=== PATIENT | female | born 1975 | race Caucasian/White ===

== ENCOUNTER 2017-04-02 22:32 | Emergency (ER) | payer OTHER ==
[~2017-04-02] VITALS: Ht 172.7 cm; Wt 113.4 kg
[~2017-04-02 22:32] MED LIST: CRESTOR40 MG PO; FURO-68 PO; LANS30CA17 PO; LISINOPRIL; POTA20TA12 PO; SUCR1TAB29 PO
--- NOTE | 2017-04-02 22:52 | PHYS DOC ---
Past Medical History Past Medical History: CHF, DVT, High Cholesterol, Hypertension, [place], Other Additional Past Medical Histor: PULMONARY EMBOLISM , LUPUS Past Surgical History: Cholecystectomy, , Hysterectomy, Other Additional Past Surgical Histo: IVC FILTER PLACED Alcohol Use: Rarely Drug Use: None Adult General Chief Complaint Chief Complaint: HEMATEMESIS/VOMITING BLOOD HPI HPI Patient is a 41 year old female who presents with vomiting up blood. She states 3 days ago she developed nausea and vomiting. Initially the vomit was normal. Then started becoming bloody. She states her stool is "thick and tarry" . No fever or chills. Sheet sharp stabbing midabdominal pain that started at the same 3 days ago. No fevers. She was just seen by her physician last for just "recheck" and was normal then. She was on chronic anticoagulation for prior DVT. Review of Systems Review of Systems Constitutional: Denies fever or chills Eyes: Denies change in visual acuity, redness, or eye pain HENT: Denies nasal congestion or sore throat Respiratory: Denies cough or shortness of breath Cardiovascular: No chest pain GI: see HPI : Denies dysuria or hematuria Musculoskeletal: Denies back pain or joint pain Integument: Denies rash or skin lesions Neurologic: Denies headache, focal weakness or sensory changes Current Medications Current Medications Current Medications Medications (Trade) Dose Ordered Sig/Tex Start Time Stop Time Status Last Admin Dose Admin Morphine Sulfate 2 mg 1X ONCE 04/03/17 01:30 04/03/17 01:31 DC 04/03/17 01:30 2 MG Ondansetron HCl (Zofran) 4 mg 1X ONCE 04/02/17 23:45 04/02/17 23:46 DC 04/02/17 23:45 4 MG Allergies Allergies Allergies Coded Allergies Type Severity Reaction Last Updated Verified Cephalexin Monohydrate Allergy Intermediate 04/02/17 Yes NSAIDS (Non-Steroidal Anti-Inflamma Allergy Intermediate 04/02/17 Yes Penicillins Allergy Intermediate 04/02/17 Yes iodine Allergy Intermediate 04/02/17 Yes lidocaine Allergy Intermediate 04/02/17 Yes prochlorperazine edisylate Allergy Intermediate 04/02/17 Yes prochlorperazine maleate Allergy Intermediate 04/02/17 Yes sulfamethoxazole Allergy Intermediate 04/02/17 Yes trimethoprim Allergy Intermediate 04/02/17 Yes Physical Exam Physical Exam Constitutional: Well developed, well nourished, no acute distress, non-toxic appearance. HENT: Normocephalic, atraumatic, bilateral external ears normal, oropharynx moist, no oral exudates, nose normal. Eyes: PERRLA, EOMI, conjunctiva normal, no discharge. Neck: Normal range of motion, no tenderness, supple, no stridor. Cardiovascular:Heart rate regular rhythm, no murmur Lungs & Thorax: Bilateral breath sounds clear to auscultation Abdomen: Bowel sounds normal, soft, minimal tenderness in epigastric area; no rebound or guarding, no masses, no pulsatile masses. Skin: Warm, dry, no erythema, no rash. Back: No tenderness, no CVA tenderness. Extremities: No tenderness, no cyanosis, no clubbing, ROM intact, no edema. Neurologic: Alert and oriented X 3, normal motor function, normal sensory function, no focal deficits noted. Psychologic: Affect normal, judgement normal, mood normal. Current Patient Data Vital Signs Vital Signs Date Time Temp Pulse Resp B/P (MAP) Pulse Ox O2 Delivery O2 Flow Rate FiO2 04/03/17 01:30 99 Room Air 04/03/17 00:12 87 19 114/68 (83) 04/02/17 23:03 97.6 97.6 Lab Values Laboratory Tests Test 04/02/17 23:15 04/02/17 23:45 04/02/17 23:59 Urine Collection Type Unknown Urine Color Yellow Urine Clarity Clear Urine pH 5.5 Urine Specific [place] >=1.030 Urine Protein Negative mg/dL (NEG-TRACE) Urine Glucose (UA) Negative mg/dL (NEG) Urine Ketones (Stick) Negative mg/dL (NEG) Urine Blood Negative (NEG) Urine Nitrite Negative (NEG) Urine Bilirubin Negative (NEG) Urine Urobilinogen Dipstick 0.2 mg/dL (0.2 mg/dL) Urine Leukocyte Esterase Negative (NEG) Urine RBC Occ /HPF (0-2) Urine WBC 5-10 /HPF (0-4) Urine Squamous Epithelial Cells Mod /LPF Urine Bacteria Many /HPF (0-FEW) Urine Hyaline Casts Few /HPF Urine Mucus Marked /LPF Stool Occult Blood Negative (NEG) White Blood Count 11.1 x10^3/uL (4.0-11.0) H Red Blood Count 3.91 x10^6/uL (3.50-5.40) Hemoglobin 12.1 g/dL (12.0-15.5) Hematocrit 36.3 % (36.0-47.0) Mean Corpuscular Volume 93 fL (79-100) Mean Corpuscular Hemoglobin 31 pg (25-35) Mean Corpuscular Hemoglobin Concent 33 g/dL (31-37) Red Cell Distribution Width 13.5 % (11.5-14.5) Platelet Count 421 x10^3/uL (140-400) H Neutrophils (%) (Auto) 53 % (31-73) Lymphocytes (%) (Auto) 31 % (24-48) Monocytes (%) (Auto) 9 % (0-9) Eosinophils (%) (Auto) 6 % (0-3) H Basophils (%) (Auto) 1 % (0-3) Neutrophils # (Auto) 5.9 x10^3uL (1.8-7.7) Lymphocytes # (Auto) 3.4 x10^3/uL (1.0-4.8) Monocytes # (Auto) 1.0 x10^3/uL (0.0-1.1) Eosinophils # (Auto) 0.7 x10^3/uL (0.0-0.7) Basophils # (Auto) 0.2 x10^3/uL (0.0-0.2) Prothrombin Time 12.9 SEC (11.7-14.0) Prothrombin Time INR 1.0 (0.8-1.1) PTT 28 SEC (24-38) Sodium Level 140 mmol/L (136-145) Potassium Level 4.4 mmol/L (3.5-5.1) Chloride Level 104 mmol/L (98-107) Carbon Dioxide Level 25 mmol/L (21-32) Anion Gap 11 (6-14) Blood Urea Nitrogen 20 mg/dL (7-20) Creatinine 0.7 mg/dL (0.6-1.0) Estimated GFR (Cockcroft-Gault) 92.2 BUN/Creatinine Ratio 29 (6-20) H Glucose Level 89 mg/dL (70-99) Calcium Level 9.3 mg/dL (8.5-10.1) Total Bilirubin 0.2 mg/dL (0.2-1.0) Aspartate Amino Transferase (AST) 10 U/L (15-37) L Alanine Aminotransferase (ALT) 19 U/L (14-59) Alkaline Phosphatase 73 U/L (46-116) Total Protein 8.3 g/dL (6.4-8.2) H Albumin 4.1 g/dL (3.4-5.0) Albumin/Globulin Ratio 1.0 (1.0-1.7) Laboratory Tests 04/02/17 23:59 Laboratory Tests 04/02/17 23:59 Radiology/Procedures Radiology/Procedures [facility] [address] [place] [address] IMAGING REPORT Signed PATIENT: TRACIE GAONA ACCOUNT: [id number] : 1975 LOCATION: ER AGE: 41 SEX: F EXAM STATUS: REG ER ORD. PHYSICIAN: ROE LALA MD REASON: ABD PAIN W VOMITING BLOOD; ALLERGY TO IODINE PROCEDURE: CT ABDOMEN PELVIS WO CONTRAST Exam performed: CT scan of the abdomen and pelvis without contrast. Clinical Indication: Lower abdominal pain and hematemesis with 3 days Date of Service: 04/02/2017 . Comparison: None available Technique: Contiguous helical acquisitions are obtained through the abdomen and pelvis without oral or IV contrast due to IV contrast allergy. Sagittal and coronal reformatted images are obtained and reviewed. CT abdomen findings: The lung bases demonstrate bibasilar atelectasis. The visualized heart is normal. Lack of IV contrast limits evaluation of abdominal viscera, however the liver, spleen, pancreas appear normal. Cholecystectomy. Both adrenal glands and bilateral kidneys are normal in size. There is no nephrolithiasis or hydronephrosis. No perinephric stranding is seen. Aorta is normal in caliber. IVC filter. No retroperitoneal or mesenteric lymphadenopathy. Small and large bowel loops are nondilated and unremarkable. Appendix is not clearly visualized. CT pelvis findings: The pelvic bowel loops are nondilated and unremarkable. The urinary bladder is decompressed. The uterus is clinically absent. No adnexal masses. No fluid collections or pelvic lymphadenopathy. Bones are unremarkable. Impression: No acute intra-abdominal or pelvic process noted. Status post cholecystectomy and hysterectomy. PQRS Compliance Statement: One or more of the following individualized dose reduction techniques were utilized for this examination: 1. Automated exposure control 2. Adjustment of the mA and/or kV according to patient size 3. Use of iterative reconstruction technique Electronically signed by: Nita Dacosta MD (04/02/2017 11:54 PM) DICTATED and SIGNED BY: NITA DACOSTA MD DATE: 04/02/17 0502 CC: ROE LALA MD; HU BAUTISTA MD ~ Course & Med Decision Making Course & Med Decision Making Pertinent Labs and Imaging studies reviewed. (See chart for details) evaluated patient upon arrival. She is on an anticoagulant with c/o vomiting blood. Will check lab. She has had prior abdominal surgeries and has pain with vomiting; will check CT (no iodine-she is allergic) to r/o SBO. 0030 Am: H/H stable; 03/04/16 she was 13.1/37.6. Hemoccult negative. 0100 AM: lab all returned and unremarkable. re-examined; mild pain on palpation but no rebound or guarding. BP 117/55, P 85. Will d/c home and she was instructed to call her PCP later today. Dragon Disclaimer Dragon Disclaimer This electronic medical record was generated, in whole or in part, using a voice recognition dictation system. Departure Departure Impression: Primary Impression: Abdominal pain Additional Impressions: Current use of anticoagulant therapy Vomiting Disposition: HOME, SELF-CARE Admitting Physician: Asif Sellers Condition: STABLE Referrals: HU BAUTISTA MD (PCP) Scripts Famotidine (PEPCID) 40 Mg Tablet 40 MG PO HS for 28 Days, #28 TAB Prov: ROE LALA MD 04/03/17 Ondansetron (ZOFRAN ODT) 4 Mg Tab.rapdis 1 TAB SL Q8HRS, #15 TAB Prov: ROE LALA MD 04/03/17 Problem Qualifiers ROE LALA MD April 02, 2017 22:52
[2017-04-02 23:45] LABS: BILIRUBIN,URINE NEGATIVE (NEG); GLUCOSE,URINE NEGATIVE (NEG); NITRITE,URINE NEGATIVE (NEG); PH,URINE 5.5; PROTEIN,URINE NEGATIVE (NEG-TRACE); UROBILINOGEN,URINE 0.2 mg/dL (0.2 mg/dL)
[2017-04-02] MEDS ORDERED: MORPHINE SULFATE 2 MG/ML DISP.SYRIN. IM ONE (23:45)
[2017-04-02] MEDS ORDERED: ONDANSETRON PF 4 MG/2 ML VIAL. IV ONE (23:45)
--- NOTE | 2017-04-02 23:58 | RAD ---
Exam performed: CT scan of the abdomen and pelvis without contrast. Clinical Indication: Lower abdominal pain and hematemesis with 3 days Date of Service: 04/02/2017 . Comparison: None available Technique: Contiguous helical acquisitions are obtained through the abdomen and pelvis without oral or IV contrast due to IV contrast allergy. Sagittal and coronal reformatted images are obtained and reviewed. CT abdomen findings: The lung bases demonstrate bibasilar atelectasis. The visualized heart is normal. Lack of IV contrast limits evaluation of abdominal viscera, however the liver, spleen, pancreas appear normal. Cholecystectomy. Both adrenal glands and bilateral kidneys are normal in size. There is no nephrolithiasis or hydronephrosis. No perinephric stranding is seen. Aorta is normal in caliber. IVC filter. No retroperitoneal or mesenteric lymphadenopathy. Small and large bowel loops are nondilated and unremarkable. Appendix is not clearly visualized. CT pelvis findings: The pelvic bowel loops are nondilated and unremarkable. The urinary bladder is decompressed. The uterus is clinically absent. No adnexal masses. No fluid collections or pelvic lymphadenopathy. Bones are unremarkable. Impression: No acute intra-abdominal or pelvic process noted. Status post cholecystectomy and hysterectomy. PQRS Compliance Statement: One or more of the following individualized dose reduction techniques were utilized for this examination: 1. Automated exposure control 2. Adjustment of the mA and/or kV according to patient size 3. Use of iterative reconstruction technique Electronically signed by: Nita Dacosta MD (04/02/2017 11:54 PM)
[2017-04-03] LABS: BACTERIA,URINE MANY /HPF (0-FEW); RBC,URINE OCC /HPF (0-2); SQUAMOUS EPITHELIAL CELL,UR MOD /LPF
[2017-04-03 00:12] VITALS: BP 114/68
[2017-04-03 00:15] LABS: BASO # 0.2 x10^3/uL (0.0-0.2); BASO % 1 % (0-3); EOS % 6 % (0-3); HEMATOCRIT 36.3 % (36.0-47.0); HEMOGLOBIN 12.1 g/dL (12.0-15.5); LYMPH # 3.4 x10^3/uL (1.0-4.8); LYMPH % 31 % (24-48); MEAN CORPUSCULAR HEMOGLOBIN 31 pg (25-35); MEAN CORPUSCULAR HGB CONC 33 g/dL (31-37); MEAN CORPUSCULAR VOLUME 93 fL (79-100); MONO % 9 % (0-9); NEUT % 53 % (31-73); PLATELET COUNT 421 x10^3/uL (140-400); RED BLOOD COUNT 3.91 x10^6/uL (3.50-5.40); RED CELL DISTRIBUTION WIDTH 13.5 % (11.5-14.5); WHITE BLOOD COUNT 11.1 x10^3/uL (4.0-11.0)
[2017-04-03 00:20] LABS: NEG OBC FOB NEG; POS OBC FOB POS
[2017-04-03 00:24] LABS: PROTHROMBIN TIME PATIENT 12.9 SEC (11.7-14.0)
[2017-04-03] MEDS ORDERED: MORPHINE SULFATE 2 MG/ML DISP.SYRIN. IV ONE ×2 (00:30→01:30)
[2017-04-03 00:32] LABS: CALCIUM 9.3 mg/dL (8.5-10.1); CREATININE 0.7 mg/dL (0.6-1.0); GFR 92.2; POTASSIUM 4.4 mmol/L (3.5-5.1)
[2017-04-03 00:37] LABS: ALBUMIN 4.1 g/dL (3.4-5.0); TOTAL BILIRUBIN 0.2 mg/dL (0.2-1.0); TOTAL PROTEIN 8.3 g/dL (6.4-8.2)
[2017-04-03] MEDS ORDERED: ONDA4TAB10 SL (01:16)
[2017-04-03] MEDS ORDERED: FAMO40TA57 PO (01:16)
== END 2017-04-03 01:35 | disposition home or self-care (01) ==
LOC: ER 22:32
DX: R10.13 Epigastric pain (principal); R11.2 Nausea with vomiting, unspecified; E78.00 Pure hypercholesterolemia, unspecified; I25.2 Old myocardial infarction; I11.0 Hypertensive heart disease with heart failure; I50.9 Heart failure, unspecified; Z90.49 Acquired absence of other specified parts of digestive tract; Z90.710 Acquired absence of both cervix and uterus; Z86.718 Personal history of other venous thrombosis and embolism; Z86.711 Personal history of pulmonary embolism; Z79.01 Long term (current) use of anticoagulants; Z88.0 Allergy status to penicillin; Z88.8 Allergy status to other drugs, medicaments and biological substances; Z88.6 Allergy status to analgesic agent; Z88.4 Allergy status to anesthetic agent; Z88.1 Allergy status to other antibiotic agents; Z91.041 Radiographic dye allergy status
CPT/HCPCS: 36415; 74176; 80053; 81001; 82274; 85027; 85610; 85730; 96374; 96375; 96376; 99285; J2270; J2405

== ENCOUNTER 2017-04-04 14:43 | Emergency (ER) | payer OTHER ==
[~2017-04-04] VITALS: Ht 172.7 cm; Wt 127.0 kg
[~2017-04-04 14:43] MED LIST changes: +FAMO40TA57 PO; +ONDA4TAB10 SL
[2017-04-04 15:40] LABS: BASO # 0.1 x10^3/uL (0.0-0.2); BASO % 1 % (0-3); EOS % 6 % (0-3); HEMATOCRIT 34.6 % (36.0-47.0); HEMOGLOBIN 11.8 g/dL (12.0-15.5); LYMPH # 2.3 x10^3/uL (1.0-4.8); LYMPH % 24 % (24-48); MEAN CORPUSCULAR HEMOGLOBIN 31 pg (25-35); MEAN CORPUSCULAR HGB CONC 34 g/dL (31-37); MEAN CORPUSCULAR VOLUME 91 fL (79-100); MONO % 7 % (0-9); NEUT % 62 % (31-73); PLATELET COUNT 384 x10^3/uL (140-400); RED BLOOD COUNT 3.79 x10^6/uL (3.50-5.40); RED CELL DISTRIBUTION WIDTH 13.5 % (11.5-14.5); WHITE BLOOD COUNT 9.5 x10^3/uL (4.0-11.0)
[2017-04-04] MEDS ORDERED: ONDANSETRON PF 4 MG/2 ML VIAL. IV ONE (15:45)
--- NOTE | 2017-04-04 15:50 | ED.ADGEN ---
Past Medical History Past Medical History: CHF, COPD, DVT, High Cholesterol, Hypertension, ID, Other Additional Past Medical Histor: PULMONARY EMBOLISM , LUPUS Past Surgical History: Cholecystectomy, , Hysterectomy, Other Additional Past Surgical Histo: IVC FILTER PLACED and removed Alcohol Use: Rarely Drug Use: None Adult General Chief Complaint Chief Complaint: CHEST PAIN HPI HPI Patient is a 41 year old woman, history of lupus, CAD status post ID, CHF, hypertension, DVT and PE, who presents emergency Department with complaint of pain and swelling in her right lower extremity over the past several days, with development of left-sided chest pain and shortness of breath that began approximately an hour prior to evaluation in the emergency department. Patient states that she was seated with her children when the pain began, denies any injuries, any fevers, no chills, any productive cough, any weakness, numbness, tingling, rashes, travel, surgery or other inciting events. She states that her symptoms are the same as they were with her previous PE several years ago. Patient states that she does take Edoxaban for anticoagulation, states that she missed several days last week when she "just got busy and forgot to take the medication". She states she has been compliant this week. Review of Systems Review of Systems Constitutional: Denies fever or chills. [] Eyes: Denies change in visual acuity. [] HENT: Denies nasal congestion or sore throat. [] Respiratory: Denies cough, shortness of breath with chest pain beginning an hour and a half ago. Cardiovascular: Chest pain, edema. GI: Denies abdominal pain, nausea, vomiting, bloody stools or diarrhea. [] : Denies dysuria. [] Musculoskeletal: Denies back pain or joint pain. [] Integument: Denies rash. [] Neurologic: Denies headache, focal weakness or sensory changes. [] Endocrine: Denies polyuria or polydipsia. [] Lymphatic: Denies swollen glands. [] Psychiatric: Denies depression or anxiety. [] Current Medications Current Medications Current Medications Medications (Trade) Dose Ordered Sig/Tex Start Time Stop Time Status Last Admin Dose Admin Fentanyl Citrate (Fentanyl 2ml Vial) 50 mcg PRN Q15MIN PRN 04/04/17 15:45 04/05/17 15:44 04/04/17 18:31 50 MCG Ondansetron HCl (Zofran) 4 mg 1X ONCE 04/04/17 15:45 04/04/17 15:46 DC 04/04/17 15:52 4 MG Allergies Allergies Allergies Coded Allergies Type Severity Reaction Last Updated Verified Cephalexin Monohydrate Allergy Intermediate 04/04/17 Yes NSAIDS (Non-Steroidal Anti-Inflamma Allergy Intermediate 04/04/17 Yes Penicillins Allergy Intermediate 04/04/17 Yes iodine Allergy Intermediate 04/04/17 Yes lidocaine Allergy Intermediate 04/04/17 Yes prochlorperazine edisylate Allergy Intermediate 04/04/17 Yes prochlorperazine maleate Allergy Intermediate 04/04/17 Yes sulfamethoxazole Allergy Intermediate 04/04/17 Yes trimethoprim Allergy Intermediate 04/04/17 Yes Physical Exam Physical Exam Constitutional: Well developed, well nourished, appears anxious, non-toxic appearance. [] HENT: Normocephalic, atraumatic, bilateral external ears normal, oropharynx moist, no oral exudates, nose normal. [] Eyes: PERRLA, EOMI, conjunctiva normal, no discharge. [] Neck: Normal range of motion, no tenderness, supple, no stridor. [] Cardiovascular:Heart rate regular rhythm, no murmur, S1, S2, tachycardic, no rubs or gallops. [] Lungs & Thorax: Bilateral breath sounds clear to auscultation, no wheezing, rhonchi, rales. No chest wall crepitus, no tenderness or rashes, unable to reproduce symptoms with palpation. [] Abdomen: Bowel sounds normal, soft, no tenderness, no masses, no pulsatile masses. [] Skin: Warm, dry, no erythema, no rash. [] Back: No tenderness, no CVA tenderness. [] Extremities: No tenderness, no cyanosis, no clubbing, ROM intact, no edema. Patient with tenderness palpation in the right calf, no pitting edema. Neurologic: Alert and oriented X 3, normal motor function, normal sensory function, no focal deficits noted. [] Psychologic: Affect normal, judgement normal, mood normal. [] Current Patient Data Vital Signs Vital Signs Date Time Temp Pulse Resp B/P (MAP) Pulse Ox O2 Delivery O2 Flow Rate FiO2 04/04/17 18:31 24 94 Nasal Cannula 2.0 04/04/17 18:30 84 119/85 (96) 04/04/17 14:52 98.1 98.1 Lab Values Laboratory Tests Test 04/04/17 14:53 04/04/17 15:20 Urine Collection Type Unknown Urine Color Yellow Urine Clarity Clear Urine pH 5.5 Urine Specific [place] 1.025 Urine Protein Negative mg/dL (NEG-TRACE) Urine Glucose (UA) Negative mg/dL (NEG) Urine Ketones (Stick) Negative mg/dL (NEG) Urine Blood Negative (NEG) Urine Nitrite Negative (NEG) Urine Bilirubin Negative (NEG) Urine Urobilinogen Dipstick 0.2 mg/dL (0.2 mg/dL) Urine Leukocyte Esterase Trace (NEG) Urine RBC 0 /HPF (0-2) Urine WBC 1-4 /HPF (0-4) Urine Squamous Epithelial Cells Few /LPF Urine Bacteria Few /HPF (0-FEW) Urine Mucus Mod /LPF Urine Opiates Screen Pos (NEG) Urine Methadone Screen Neg (NEG) Urine Barbiturates Neg (NEG) Urine Phencyclidine Screen Neg (NEG) Urine Amphetamine/Methamphetamine Neg (NEG) Urine Benzodiazepines Screen Pos (NEG) Urine Cocaine Screen Neg (NEG) Urine Cannabinoids Screen Neg (NEG) Urine Ethyl Alcohol Neg (NEG) White Blood Count 9.5 x10^3/uL (4.0-11.0) Red Blood Count 3.79 x10^6/uL (3.50-5.40) Hemoglobin 11.8 g/dL (12.0-15.5) L Hematocrit 34.6 % (36.0-47.0) L Mean Corpuscular Volume 91 fL (79-100) Mean Corpuscular Hemoglobin 31 pg (25-35) Mean Corpuscular Hemoglobin Concent 34 g/dL (31-37) Red Cell Distribution Width 13.5 % (11.5-14.5) Platelet Count 384 x10^3/uL (140-400) Neutrophils (%) (Auto) 62 % (31-73) Lymphocytes (%) (Auto) 24 % (24-48) Monocytes (%) (Auto) 7 % (0-9) Eosinophils (%) (Auto) 6 % (0-3) H Basophils (%) (Auto) 1 % (0-3) Neutrophils # (Auto) 5.9 x10^3uL (1.8-7.7) Lymphocytes # (Auto) 2.3 x10^3/uL (1.0-4.8) Monocytes # (Auto) 0.7 x10^3/uL (0.0-1.1) Eosinophils # (Auto) 0.6 x10^3/uL (0.0-0.7) Basophils # (Auto) 0.1 x10^3/uL (0.0-0.2) Prothrombin Time 13.0 SEC (11.7-14.0) Prothrombin Time INR 1.0 (0.8-1.1) Sodium Level 142 mmol/L (136-145) Potassium Level 3.9 mmol/L (3.5-5.1) Chloride Level 106 mmol/L (98-107) Carbon Dioxide Level 25 mmol/L (21-32) Anion Gap 11 (6-14) Blood Urea Nitrogen 14 mg/dL (7-20) Creatinine 0.7 mg/dL (0.6-1.0) Estimated GFR (Cockcroft-Gault) 92.2 Glucose Level 122 mg/dL (70-99) H Calcium Level 9.0 mg/dL (8.5-10.1) Total Bilirubin 0.3 mg/dL (0.2-1.0) Direct Bilirubin 0.1 mg/dL (0.0-0.2) Aspartate Amino Transferase (AST) 9 U/L (15-37) L Alanine Aminotransferase (ALT) 17 U/L (14-59) Alkaline Phosphatase 61 U/L (46-116) Troponin I Quantitative < 0.017 ng/mL (0.000-0.055) YD-Fmb-L-Type Natriuretic Peptide 69 pg/mL (0-124) Total Protein 6.8 g/dL (6.4-8.2) Albumin 3.6 g/dL (3.4-5.0) Lipase 85 U/L (73-393) Laboratory Tests 04/04/17 15:20 Laboratory Tests 04/04/17 15:20 EKG EKG EC: Sinus tachycardia, heart rate 101 beats minute, left axis deviation, with incomplete right bundle-branch block noted, contour normality is noted in the inferior leads and anterior leads, abnormal ECG, QTC of 423, [place] 140, QRS 92 , no ST depressions, abnormal ECG, does not meet STEMI criteria. As interpreted by me. [] Interpretation Time: [address] [id number] IMAGING REPORT Signed PATIENT: TRACIE GAONA ACCOUNT: [id number] : 1975 LOCATION: ER AGE: 41 SEX: F EXAM STATUS: REG ER ORD. PHYSICIAN: LUCHO VERDIN DO REASON: Swelling/pain/hx DVT/missed anticoagulation PROCEDURE: VENOUS LOWER EXT BILATERAL Bilateral lower extremity venous ultrasound, 04/04/2017: History: Bilateral leg swelling Duplex evaluation of the deep veins in the lower extremities was performed including grayscale, color-flow and spectral Doppler analysis. The femoral and popliteal veins demonstrate normal compressibility and normal responses to distal augmentation maneuvers. Color imaging of those vessels shows no evidence of intraluminal clot. The visualized deep veins in both calves are patent. IMPRESSION: There is no sonographic evidence of deep vein thrombosis in either lower extremity. DICTATED and SIGNED BY: FLY MANRIQUEZ MD DATE: 04/04/17 164 CC: LUCHO VERDIN DO; HU BAUTISTA MD ~ Radiology/Procedures Radiology/Procedures [] Impressions: [address] [id number] IMAGING REPORT Signed PATIENT: TRACIE GAONA ACCOUNT: [id number] : 1975 LOCATION: ER AGE: 41 SEX: F EXAM STATUS: REG ER ORD. PHYSICIAN: LUCHO VERDIN DO REASON: SOB/CP/Hx PE w/ missed anticoagulation-NEREIDA NOTIFIED PROCEDURE: LUNG VENT/PERFUSION SCAN(VQ) Ventilation perfusion exam History:short of breath, chest pain, nausea for 1 day. History of PE 1 year ago, DVT 6 months. patient didn't take 2 doses of anticoagulants Comparison: There is no previous similar exam or chest radiograph at this time available for comparison. Findings: Ventilation perfusion examination was performed. Ventilation images were acquired after the patient inhaled 16.1 mCi of xenon-133 gas. Perfusion images were acquired after the patient was injected with 5.5 mCi of technetium 99m MAA. No mismatched perfusion defect is identified. Impression: 1. There is low probability for pulmonary embolic disease. Electronically signed by: Hemanth Fernandez MD (04/04/2017 6:38 PM) DICTATED and SIGNED BY: HEMANTH FERNANDEZ MD DATE: 04/04/17 1835 CC: LUCHO VERDIN DO; HU BAUTISTA MD ~ Course & Med Decision Making Course & Med Decision Making Pertinent Labs and Imaging studies reviewed. (See chart for details) Due to patient's history of PE, and missed doses of medication, ultrasound lower extremities due to her complaint of pain and swelling, and also a ventilation perfusion scan. DVT study was negative, perfusion study was low probability for PE, laboratory studies do not reveal any other concerning findings. Patient received medication in the ED for pain, resting comfortably on reevaluation, tachycardia is resolved. I did discuss findings with patient, stated that she should continue use acetaminophen as needed for pain, as she is allergic to all other NSAIDs, and Lidoderm lidocaine-containing medications, instructed she can follow-up with her primary care provider for additional evaluation as needed. We also discussed concerning symptoms that prompt return to the emergency department, and the importance of taking medications as directed. Patient ambulating without difficulty in the emergency department, discharged home in stable condition with plan as above. Dragon Disclaimer Dragon Disclaimer This electronic medical record was generated, in whole or in part, using a voice recognition dictation system. Departure Impression: Primary Impression: Chest pain Disposition: HOME, SELF-CARE Condition: IMPROVED LUCHO VERDIN DO April 04, 2017 15:50
[2017-04-04] MEDS: fentaNYL PF VIAL 100 MCG/2 ML VIAL IV PRN ×4 (15:53→18:31)
[2017-04-04 15:59] LABS: CREATININE 0.7 mg/dL (0.6-1.0); GFR 92.2; POTASSIUM 3.9 mmol/L (3.5-5.1)
[2017-04-04 16:05] LABS: ALBUMIN 3.6 g/dL (3.4-5.0); DIRECT BILIRUBIN 0.1 mg/dL (0.0-0.2); TOTAL BILIRUBIN 0.3 mg/dL (0.2-1.0); TOTAL PROTEIN 6.8 g/dL (6.4-8.2)
[2017-04-04 16:12] LABS: BILIRUBIN,URINE NEGATIVE (NEG); GLUCOSE,URINE NEGATIVE (NEG); NITRITE,URINE NEGATIVE (NEG); PH,URINE 5.5; PROTEIN,URINE NEGATIVE (NEG-TRACE); UROBILINOGEN,URINE 0.2 mg/dL (0.2 mg/dL)
[2017-04-04 16:15] LABS: BARBITURATES NEG (NEG); BENZODIAZEPINES POS (NEG); CANNABINOIDS NEG (NEG); COCAINE NEG (NEG); METHADONE NEG (NEG); OPIATES POS (NEG); PHENCYCLIDINE NEG (NEG)
[2017-04-04 16:19] LABS: BACTERIA,URINE FEW /HPF (0-FEW); RBC,URINE 0 /HPF (0-2); SQUAMOUS EPITHELIAL CELL,UR FEW /LPF
--- NOTE | 2017-04-04 16:40 | EKG ---
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
--- NOTE | 2017-04-04 16:48 | RAD ---
Bilateral lower extremity venous ultrasound, 04/04/2017: History: Bilateral leg swelling Duplex evaluation of the deep veins in the lower extremities was performed including grayscale, color-flow and spectral Doppler analysis. The femoral and popliteal veins demonstrate normal compressibility and normal responses to distal augmentation maneuvers. Color imaging of those vessels shows no evidence of intraluminal clot. The visualized deep veins in both calves are patent. IMPRESSION: There is no sonographic evidence of deep vein thrombosis in either lower extremity.
--- NOTE | 2017-04-04 16:49 | RAD ---
Chest, 2 views, 04/04/2017: History: Chest pain, shortness of breath Comparison is made to a study from 01/22/2016. The heart size and pulmonary vascularity are normal. The lungs are clear. There is no evidence of pleural fluid. IMPRESSION: No acute cardiopulmonary abnormality is detected.
[2017-04-04 18:30] VITALS: BP 119/85
--- NOTE | 2017-04-04 18:42 | RAD ---
Ventilation perfusion exam History:short of breath, chest pain, nausea for 1 day. History of PE 1 year ago, DVT 6 months. patient didn't take 2 doses of anticoagulants Comparison: There is no previous similar exam or chest radiograph at this time available for comparison. Findings: Ventilation perfusion examination was performed. Ventilation images were acquired after the patient inhaled 16.1 mCi of xenon-133 gas. Perfusion images were acquired after the patient was injected with 5.5 mCi of technetium 99m MAA. No mismatched perfusion defect is identified. Impression: 1. There is low probability for pulmonary embolic disease. Electronically signed by: Prudencio Coates MD (04/04/2017 6:38 PM)
== END 2017-04-04 19:40 | disposition home or self-care (01) ==
LOC: ER 14:43
DX: R07.89 Other chest pain (principal); R06.02 Shortness of breath; R22.41 Localized swelling, mass and lump, right lower limb; I11.0 Hypertensive heart disease with heart failure; I50.9 Heart failure, unspecified; J44.9 Chronic obstructive pulmonary disease, unspecified; E78.00 Pure hypercholesterolemia, unspecified; Z86.718 Personal history of other venous thrombosis and embolism; I25.2 Old myocardial infarction; Z86.711 Personal history of pulmonary embolism; Z88.0 Allergy status to penicillin; Z88.8 Allergy status to other drugs, medicaments and biological substances; Z88.4 Allergy status to anesthetic agent; Z88.1 Allergy status to other antibiotic agents; Z91.041 Radiographic dye allergy status
CPT/HCPCS: 36415; 71020; 78582; 80048; 80076; 80305; 81001; 83690; 83880; 84484; 85027; 85610; 93005; 93970; 96374; 96375; 96376; 99285; A9540; A9558; J2405; J3010; G0481

== ENCOUNTER 2017-04-06 20:42 | Emergency (ER) | payer OTHER ==
[~2017-04-06] VITALS: Ht 172.7 cm; Wt 127.0 kg
[2017-04-06 21:10] VITALS: BP 144/82
[2017-04-06 21:22] LABS: BILIRUBIN,URINE NEGATIVE (NEG); GLUCOSE,URINE NEGATIVE (NEG); NITRITE,URINE NEGATIVE (NEG); PH,URINE 5.5; PROTEIN,URINE NEGATIVE (NEG-TRACE); UROBILINOGEN,URINE 0.2 mg/dL (0.2 mg/dL)
[2017-04-06 21:29] LABS: RBC,URINE TNTC /HPF (0-2)
[2017-04-06 21:30] LABS: BACTERIA,URINE MODERATE /HPF (0-FEW); SQUAMOUS EPITHELIAL CELL,UR FEW /LPF; WBC,URINE OCC /HPF (0-4)
[2017-04-06] MEDS ORDERED: fentaNYL PF VIAL 100 MCG/2 ML VIAL IV PRN (21:45)
--- NOTE | 2017-04-06 21:53 | PHYS DOC ---
Past Medical History Past Medical History: CHF, COPD, DVT, High Cholesterol, Hypertension, [place], Other Additional Past Medical Histor: PULMONARY EMBOLISM , LUPUS Past Surgical History: Cholecystectomy, , Hysterectomy, Other Additional Past Surgical Histo: IVC FILTER PLACED and removed Alcohol Use: Rarely Drug Use: None Adult General Chief Complaint Chief Complaint: ABDOMINAL PAIN HPI HPI Patient is a 41 year old female who presents with complaint of lower pelvic and right flank pain. Patient states that her symptoms started today. Patient has had multiple visits to the emergency department for complaints of abdominal and chest pain. The patient has had noted history of drug seeking behavior. Patient also has had noted history of pulmonary embolism is currently on blood thinners. The patient states that she has had history kidney stones and states that her symptoms feel the same compared to her previous symptoms. It is noted however on April 02, 2017 the patient was seen in the emergency department and received a CT scan of the abdomen and pelvis without contrast which did not reveal any evidence of nephro or ureterolithiasis. Patient denies any fevers. Patient rates her pain as 10 out of 10 and is requesting narcotic pain medication. Review of Systems Review of Systems Constitutional: Denies fever or chills [] Eyes: Denies change in visual acuity, redness, or eye pain [] HENT: Denies nasal congestion or sore throat [] Respiratory: Denies cough or shortness of breath [] Cardiovascular: Denies chest pain or edema [] GI: Abdominal pain, denies nausea, vomiting, bloody stools or diarrhea [] : Hematuria, flank pain [] Musculoskeletal: Low back pain or joint pain [] Integument: Denies rash or skin lesions [] Neurologic: Denies headache, focal weakness or sensory changes [] Current Medications Current Medications Current Medications Medications (Trade) Dose Ordered Sig/[facility] Start Time Stop Time Status Last Admin Dose Admin Acetaminophen (Tylenol) 1,000 mg 1X ONCE 04/06/17 21:45 04/06/17 21:46 UNV Famotidine (Pepcid) 20 mg 1X ONCE 04/06/17 21:45 04/06/17 21:46 UNV Fentanyl Citrate (Fentanyl 2ml Vial) 50 mcg PRN Q15MIN PRN 04/06/17 21:45 04/07/17 21:44 UNV Levofloxacin/ Dextrose 150 ml @ 100 mls/hr 1X ONCE 04/06/17 21:45 04/06/17 23:14 UNV Ondansetron HCl (Zofran) 4 mg 1X ONCE 04/06/17 21:45 04/06/17 21:46 UNV Sodium Chloride 1,000 ml @ 1,000 mls/hr Q1H 04/06/17 21:41 04/06/17 22:40 UNV Allergies Allergies Allergies Coded Allergies Type Severity Reaction Last Updated Verified Cephalexin Monohydrate Allergy Intermediate 04/04/17 Yes NSAIDS (Non-Steroidal Anti-Inflamma Allergy Intermediate 04/04/17 Yes Penicillins Allergy Intermediate 04/04/17 Yes iodine Allergy Intermediate 04/04/17 Yes lidocaine Allergy Intermediate 04/04/17 Yes prochlorperazine edisylate Allergy Intermediate 04/04/17 Yes prochlorperazine maleate Allergy Intermediate 04/04/17 Yes sulfamethoxazole Allergy Intermediate 04/04/17 Yes trimethoprim Allergy Intermediate 04/04/17 Yes Physical Exam Physical Exam Constitutional: Alert, afebrile, appears in moderate discomfort. [] HENT: Normocephalic, atraumatic, bilateral external ears normal, oropharynx moist, no oral exudates, nose normal. [] Eyes: PERRLA, EOMI, conjunctiva normal, no discharge. [] Neck: Normal range of motion, no tenderness, supple, no stridor. [] Cardiovascular:Heart rate regular rhythm, no murmur [] Lungs & Thorax: Bilateral breath sounds clear to auscultation [] Abdomen: Bowel sounds normal, soft, suprapubic tenderness to palpation, no masses, no pulsatile masses. [] Skin: Warm, dry, no erythema, no rash. [] Back: Bilateral lower lumbar paraspinous muscle tenderness to palpation, no CVA tenderness, no midline tenderness. [] Extremities: No tenderness, no cyanosis, no clubbing, ROM intact, no edema. [] Neurologic: Alert and oriented X 3, normal motor function, normal sensory function, no focal deficits noted. [] Current Patient Data Lab Values Laboratory Tests Test 04/06/17 21:09 Urine Collection Type Unknown Urine Color Yellow Urine Clarity Cloudy Urine pH 5.5 Urine Specific Bureau >=1.030 Urine Protein Negative mg/dL (NEG-TRACE) Urine Glucose (UA) Negative mg/dL (NEG) Urine Ketones (Stick) Negative mg/dL (NEG) Urine Blood Large (NEG) Urine Nitrite Negative (NEG) Urine Bilirubin Negative (NEG) Urine Urobilinogen Dipstick 0.2 mg/dL (0.2 mg/dL) Urine Leukocyte Esterase Small (NEG) Urine RBC Tntc /HPF (0-2) Urine WBC Occ /HPF (0-4) Urine Squamous Epithelial Cells Few /LPF Urine Bacteria Moderate /HPF (0-FEW) Urine Mucus Mod /LPF EKG EKG Not performed [] Radiology/Procedures Radiology/Procedures None performed [] Course & Med Decision Making Course & Med Decision Making Pertinent Labs and Imaging studies reviewed. (See chart for details) IV access was obtained on the patient and blood work was sent off. The patient has a well-known history of drug seeking behavior. The patient was offered Tylenol for pain and was offered initiation of IV antibiotics for treatment of suspected cystitis. I was informed after leaving the patient's room that the patient decided she wanted to leave AGAINST MEDICAL ADVICE and signed out before I could return to the room to speak with the patient. Patient did not receive any medications in the emergency department before leaving the emergency department. Dragon Disclaimer Dragon Disclaimer This electronic medical record was generated, in whole or in part, using a voice recognition dictation system. Departure Departure Impression: Primary Impression: Abdominal pain Disposition: AGAINST MEDICAL ADVICE Condition: STABLE Referrals: HU BAUTISTA MD (PCP) Problem Qualifiers Primary Impression: Abdominal pain Abdominal location: lower abdomen, unspecified Qualified Codes: R10.30 - Lower abdominal pain, unspecified MOIRA DAILY MD April 06, 2017 21:53
[2017-04-06] MEDS ORDERED: ACETAMINOPHEN 500 MG TABLET PO ONE (22:00)
[2017-04-06] MEDS ORDERED: ONDANSETRON PF 4 MG/2 ML VIAL. IV ONE (22:00)
[2017-04-06] MEDS ORDERED: FAMOTIDINE 20 MG/2 ML VIAL IVP ONE (22:00)
[2017-04-06] MEDS ORDERED: IV NORMAL SALINE 1000ML BAG 1,000 ML IV SCH (22:00)
== END 2017-04-06 21:45 | disposition left against medical advice (07) ==
LOC: ER 20:50
DX: R10.30 Lower abdominal pain, unspecified (principal); R10.2 Pelvic and perineal pain; R07.89 Other chest pain; E78.00 Pure hypercholesterolemia, unspecified; I11.0 Hypertensive heart disease with heart failure; I50.9 Heart failure, unspecified; J44.9 Chronic obstructive pulmonary disease, unspecified; M32.9 Systemic lupus erythematosus, unspecified; Z86.711 Personal history of pulmonary embolism; I25.2 Old myocardial infarction; Z86.718 Personal history of other venous thrombosis and embolism; Z90.710 Acquired absence of both cervix and uterus; Z90.49 Acquired absence of other specified parts of digestive tract; Z98.890 Other specified postprocedural states
CPT/HCPCS: 81001; 87086; 99282; 99284

== ENCOUNTER 2017-05-03 00:25 | Emergency (ER) | payer OTHER ==
[~2017-05-03] VITALS: Ht 172.7 cm; Wt 127.0 kg
[~2017-05-03 00:25] MED LIST changes: -LANS30CA17 PO; +LANS30CA66 PO; -SUCR1TAB29 PO; +SUCR1TAB35 PO
[2017-05-03 00:30] VITALS: BP 130/72
[2017-05-03] MEDS ORDERED: ONDANSETRON PF 4 MG/2 ML VIAL. IV ONE (01:00)
[2017-05-03] MEDS ORDERED: fentaNYL PF VIAL 100 MCG/2 ML VIAL IV ONE ×2 (01:00→02:15)
[2017-05-03 01:32] LABS: BASO # 0.1 x10^3/uL (0.0-0.2); BASO % 1 % (0-3); EOS % 8 % (0-3); HEMATOCRIT 36.1 % (36.0-47.0); HEMOGLOBIN 12.2 g/dL (12.0-15.5); LYMPH # 2.8 x10^3/uL (1.0-4.8); LYMPH % 30 % (24-48); MEAN CORPUSCULAR HEMOGLOBIN 31 pg (25-35); MEAN CORPUSCULAR HGB CONC 34 g/dL (31-37); MEAN CORPUSCULAR VOLUME 92 fL (79-100); MONO % 9 % (0-9); NEUT % 52 % (31-73); PLATELET COUNT 402 x10^3/uL (140-400); RED BLOOD COUNT 3.91 x10^6/uL (3.50-5.40); RED CELL DISTRIBUTION WIDTH 13.5 % (11.5-14.5); WHITE BLOOD COUNT 9.4 x10^3/uL (4.0-11.0)
[2017-05-03] MEDS ORDERED: diphenhydrAMINE HCL 25 MG CAPSULE PO ONE (02:15)
[2017-05-03 02:27] LABS: CALCIUM 9.9 mg/dL (8.5-10.1); CREATININE 0.7 mg/dL (0.6-1.0); GFR 92.2
[2017-05-03] MEDS ORDERED: IOHEXOL 300 MG/ML 75 ML VIAL IV ONE (02:45)
--- NOTE | 2017-05-03 02:48 | PHYS DOC ---
Past Medical History Past Medical History: CHF, COPD, DVT, High Cholesterol, Hypertension, Kidney Stone, [place], Other Additional Past Medical Histor: PULMONARY EMBOLISM , LUPUS Past Surgical History: Cholecystectomy, , Hysterectomy, Other Additional Past Surgical Histo: IVC FILTER PLACED and removed Alcohol Use: Rarely Drug Use: None Adult General Chief Complaint Chief Complaint: CHEST PAIN [facility] HPI Patient is a 41 year old female who presents with sharp chest pain that is constant, worse with breathing, left-sided. Started today; gradual in onset. She has minimal dyspnea. States she has had a pulmonary embolism before and was on anticoagulation, but this has been stopped for months now. She denies leg pain or swelling, cough, hemoptysis, palpitations, diaphoresis, neck pain, fever or chills, nausea or vomiting, abdominal pain. She denies rash or trauma. Review of Systems Review of Systems Constitutional: Denies fever or chills [] Eyes: Denies change in visual acuity, redness, or eye pain [] HENT: Denies nasal congestion or sore throat [] Respiratory: Has shortness of breath [] Cardiovascular: No additional information not addressed in HPI [] GI: Denies abdominal pain, nausea, vomiting, bloody stools or diarrhea [] : Denies dysuria or hematuria [] Musculoskeletal: Denies back pain or joint pain [] Integument: Denies rash or skin lesions [] Neurologic: Denies headache, focal weakness or sensory changes [] Endocrine: Denies polyuria or polydipsia [] Current Medications Current Medications Current Medications Medications (Trade) Dose Ordered Sig/[place] Start Time Stop Time Status Last Admin Dose Admin Diphenhydramine HCl (Benadryl) 25 mg 1X ONCE 05/03/17 02:15 05/03/17 02:16 DC 05/03/17 02:38 25 MG Fentanyl Citrate (Fentanyl 2ml Vial) 50 mcg 1X ONCE 05/03/17 02:15 05/03/17 02:16 DC 05/03/17 02:38 50 MCG Iohexol (Omnipaque 300 Mg/ml) 75 ml 1X ONCE 05/03/17 02:45 05/03/17 02:46 DC 05/03/17 03:01 75 ML Ondansetron HCl (Zofran) 4 mg 1X ONCE 05/03/17 01:00 05/03/17 01:01 DC 05/03/17 01:25 4 MG Allergies Allergies Allergies Coded Allergies Type Severity Reaction Last Updated Verified Cephalexin Monohydrate Allergy Intermediate 04/04/17 Yes NSAIDS (Non-Steroidal Anti-Inflamma Allergy Intermediate 04/04/17 Yes Penicillins Allergy Intermediate 04/04/17 Yes iodine Allergy Intermediate 04/04/17 Yes lidocaine Allergy Intermediate 04/04/17 Yes prochlorperazine edisylate Allergy Intermediate 04/04/17 Yes prochlorperazine maleate Allergy Intermediate 04/04/17 Yes sulfamethoxazole Allergy Intermediate 04/04/17 Yes trimethoprim Allergy Intermediate 04/04/17 Yes Physical Exam Physical Exam Constitutional: Well developed, well nourished, no acute distress, non-toxic appearance. [] HENT: Normocephalic, atraumatic, bilateral external ears normal, oropharynx moist, nose normal. [] Eyes: PERRLA, EOMI. [] Neck: Normal range of motion, supple. [] Cardiovascular:Heart rate regular rhythm [] Lungs & Thorax: Bilateral breath sounds clear to auscultation [] Abdomen: Bowel sounds normal, soft, no tenderness. [] Skin: Warm, dry, no erythema, no rash. [] Back: No tenderness, no CVA tenderness. [] Extremities: No tenderness, ROM intact, no edema, no palpable cord. [] Neurologic: Alert and oriented X 3, normal motor function, normal sensory function, no focal deficits noted. [] Psychologic: Affect normal, judgement normal, mood normal. [] Current Patient Data Vital Signs Vital Signs Date Time Temp Pulse Resp B/P (MAP) Pulse Ox O2 Delivery O2 Flow Rate FiO2 05/03/17 02:38 98 Room Air 05/03/17 00:30 98.0 92 16 130/72 (91) 98.0 Lab Values Laboratory Tests Test 05/03/17 01:20 05/03/17 02:00 White Blood Count 9.4 x10^3/uL (4.0-11.0) Red Blood Count 3.91 x10^6/uL (3.50-5.40) Hemoglobin 12.2 g/dL (12.0-15.5) Hematocrit 36.1 % (36.0-47.0) Mean Corpuscular Volume 92 fL (79-100) Mean Corpuscular Hemoglobin 31 pg (25-35) Mean Corpuscular Hemoglobin Concent 34 g/dL (31-37) Red Cell Distribution Width 13.5 % (11.5-14.5) Platelet Count 402 x10^3/uL (140-400) H Neutrophils (%) (Auto) 52 % (31-73) Lymphocytes (%) (Auto) 30 % (24-48) Monocytes (%) (Auto) 9 % (0-9) Eosinophils (%) (Auto) 8 % (0-3) H Basophils (%) (Auto) 1 % (0-3) Neutrophils # (Auto) 4.9 x10^3uL (1.8-7.7) Lymphocytes # (Auto) 2.8 x10^3/uL (1.0-4.8) Monocytes # (Auto) 0.9 x10^3/uL (0.0-1.1) Eosinophils # (Auto) 0.8 x10^3/uL (0.0-0.7) H Basophils # (Auto) 0.1 x10^3/uL (0.0-0.2) D-Dimer (Rozina) 0.58 ug/mlFEU (0.00-0.50) H Sodium Level 142 mmol/L (136-145) Potassium Level 4.0 mmol/L (3.5-5.1) Chloride Level 104 mmol/L (98-107) Carbon Dioxide Level 29 mmol/L (21-32) Anion Gap 9 (6-14) Blood Urea Nitrogen 15 mg/dL (7-20) Creatinine 0.7 mg/dL (0.6-1.0) Estimated GFR (Cockcroft-Gault) 92.2 Glucose Level 108 mg/dL (70-99) H Calcium Level 9.9 mg/dL (8.5-10.1) Troponin I Quantitative < 0.017 ng/mL (0.000-0.055) Laboratory Tests 05/03/17 01:20 Laboratory Tests 05/03/17 02:00 EKG EKG EKG as interpreted by me as sinus rhythm with right bundle branch block, rate 96 , no ST-T changes, normal intervals, no ectopy Radiology/Procedures Radiology/Procedures CT angiogram chest IMPRESSION: 1. There is a large amount of patient motion which limits the evaluation. No definite embolus is seen in the main, right main or left main pulmonary artery but very limited peripherally secondary to motion. 2. There is some mild groundglass opacities of the bilateral lungs. Could be secondary to mild edema, small airway disease or pneumonitis. 3. Lymphadenopathy is seen within the axillary region bilaterally which appears increased from prior. This is of unknown etiology with both reactive and neoplastic causes within the differential. Electronically signed by: Osito Maher MD (05/03/2017 3:48 AM) Course & Med Decision Making Course & Med Decision Making Pertinent Labs and Imaging studies reviewed. (See chart for details) Laboratory evaluation is largely unremarkable other than mildly elevated d- dimer. CT angiogram does not show significant evidence of pulmonary embolism. Encouraged outpatient follow-up with her primary care doctor and supportive care. Return precautions given. She understands plan. Dragon Disclaimer Dragon Disclaimer This electronic medical record was generated, in whole or in part, using a voice recognition dictation system. Departure Departure Impression: Primary Impression: Chest pain of uncertain etiology Disposition: 01 HOME, SELF-CARE Condition: STABLE Referrals: HU BAUTISTA MD (PCP) Patient Instructions: Chest Pain (Nonspecific), [id number] Additional Instructions: Take Tylenol as needed for pain. Follow-up with your primary care doctor within one week. Return for any concerns. Fern BOYER MD May 03, 2017 02:48
--- NOTE | 2017-05-03 03:52 | RAD ---
INDICATION: sharp left sided chest pain today, soa. COMPARISON: January 07, 2016 TECHNIQUE: Axial CT images obtained through the chest. Intravenous contrast utilized. Angiogram 3D images processed per protocol. One or more of the following individualized dose reduction techniques were utilized for this examination: 1. Automated exposure control; 2. Adjustment of the mA and/or kV according to patient size; 3. Use of iterative reconstruction technique. FINDINGS: There are some groundglass opacities in the bilateral lungs with mosaic attenuation. Is large amount of patient motion. No evidence of pneumothorax. Linear opacities in right middle lobe and lingula, could be atelectasis. The ascending thoracic aorta is largely obscured by motion. No definite aortic aneurysm. Bilateral axillary lymphadenopathy is suspected. For example left axilla measuring up to 31 x 20 mm. There is slightly increased from prior. No definite embolus in the main, right main or left main pulmonary artery. Very limited peripherally secondary to a large amount of patient motion. IMPRESSION: 1. There is a large amount of patient motion which limits the evaluation. No definite embolus is seen in the main, right main or left main pulmonary artery but very limited peripherally secondary to motion. 2. There is some mild groundglass opacities of the bilateral lungs. Could be secondary to mild edema, small airway disease or pneumonitis. 3. Lymphadenopathy is seen within the axillary region bilaterally which appears increased from prior. This is of unknown etiology with both reactive and neoplastic causes within the differential. Electronically signed by: Osito Maher MD (05/03/2017 3:48 AM)
--- NOTE | 2017-05-03 11:45 | EKG ---
[facility] [address] [place] [address] Test Date: 2017-05-03 Test Time: 00:35:46 Pat Name: TRACIE GAONA Department: Room: Gender: F Manager Card: : 1975 Requested By: Fern BOYER Order Number: [id number] Reading MD: Measurements Intervals [place] Rate: 96 P: 31 RI: 154 QRS: -10 QRSD: 94 T: 31 QT: 342 QTc: 433 Interpretive Statements SINUS RHYTHM LEFT ATRIAL ABNORMALITY LEFTWARD AXIS R-S TRANSITION ZONE IN V LEADS DISPLACED TO THE RIGHT INCOMPLETE RIGHT BUNDLE BRANCH BLOCK RVH WITH REPOLARIZATION ABNORMALITY QRS(T) CONTOUR ABNORMALITY CONSIDER INFERIOR MYOCARDIAL DAMAGE ABNORMAL ECG RI6.01 No previous ECG available for comparison
== END 2017-05-03 04:15 | disposition home or self-care (01) ==
LOC: ER 00:25
DX: R07.89 Other chest pain (principal); I11.0 Hypertensive heart disease with heart failure; I50.9 Heart failure, unspecified; J44.9 Chronic obstructive pulmonary disease, unspecified; E78.00 Pure hypercholesterolemia, unspecified; I25.2 Old myocardial infarction; Z86.718 Personal history of other venous thrombosis and embolism; Z87.442 Personal history of urinary calculi; Z86.711 Personal history of pulmonary embolism; Z79.01 Long term (current) use of anticoagulants; Z88.0 Allergy status to penicillin; Z88.8 Allergy status to other drugs, medicaments and biological substances; Z88.6 Allergy status to analgesic agent; Z88.4 Allergy status to anesthetic agent; Z88.1 Allergy status to other antibiotic agents; Z91.041 Radiographic dye allergy status
CPT/HCPCS: 36415; 71275; 80048; 84484; 85027; 85379; 93005; 96374; 96375; 96376; 99285; J2405; J3010; Q0163; Q9967

== ENCOUNTER 2017-05-03 21:51 | Emergency (ER) | payer OTHER ==
[~2017-05-03] VITALS: Ht 162.6 cm; Wt 127.0 kg
[2017-05-03 22:00] VITALS: BP 143/73
--- NOTE | 2017-05-03 23:11 | PHYS DOC ---
Past Medical History Past Medical History: CHF, COPD, DVT, High Cholesterol, Hypertension, Kidney Stone, [place], Other Additional Past Medical Histor: PULMONARY EMBOLISM , LUPUS Past Surgical History: Cholecystectomy, , Hysterectomy, Other Additional Past Surgical Histo: IVC FILTER PLACED and removed Alcohol Use: Rarely Drug Use: None Adult General Chief Complaint Chief Complaint: CHEST PAIN HPI HPI Patient is a 41 year old female who presents with persistent chest pain and nausea since evaluation yesterday. States it is worse this evening. States she called her doctor and was instructed to return to the ED. She denies cough , hemoptysis, leg pain or swelling, diaphoresis, palpitations, orthopnea, f/c, emesis, diarrhea, dark or bloody stools. Review of Systems Review of Systems Constitutional: Denies fever or chills [] Eyes: Denies change in visual acuity, redness, or eye pain [] HENT: Denies nasal congestion or sore throat [] Respiratory: Denies cough [] Cardiovascular: No additional information not addressed in HPI [] GI: Denies abdominal pain, vomiting, bloody stools or diarrhea [] : Denies dysuria or hematuria [] Musculoskeletal: Denies back pain or joint pain [] Integument: Denies rash or skin lesions [] Neurologic: Denies headache, focal weakness or sensory changes [] Endocrine: Denies polyuria or polydipsia [] Allergies Allergies Allergies Coded Allergies Type Severity Reaction Last Updated Verified Cephalexin Monohydrate Allergy Intermediate 04/04/17 Yes NSAIDS (Non-Steroidal Anti-Inflamma Allergy Intermediate 04/04/17 Yes Penicillins Allergy Intermediate 04/04/17 Yes iodine Allergy Intermediate 04/04/17 Yes lidocaine Allergy Intermediate 04/04/17 Yes prochlorperazine edisylate Allergy Intermediate 04/04/17 Yes prochlorperazine maleate Allergy Intermediate 04/04/17 Yes sulfamethoxazole Allergy Intermediate 04/04/17 Yes trimethoprim Allergy Intermediate 04/04/17 Yes Physical Exam Physical Exam Constitutional: Well developed, well nourished, no acute distress, non-toxic appearance. [] HENT: Normocephalic, atraumatic, bilateral external ears normal, oropharynx moist, no oral exudates, nose normal. [] Eyes: PERRLA, EOMI. [] Neck: Normal range of motion, supple, no stridor. [] Cardiovascular:Heart rate regular rhythm [] Lungs & Thorax: Bilateral breath sounds clear to auscultation [] Abdomen: Bowel sounds normal, soft, no tenderness. [] Skin: Warm, dry, no erythema, no rash. [] Back: No tenderness, no CVA tenderness. [] Extremities: No tenderness, ROM intact, no edema. [] Neurologic: Alert and oriented X 3, normal motor function, normal sensory function, no focal deficits noted. [] Psychologic: Affect normal, judgement normal, mood normal. [] EKG EKG EKG as interpreted by me as sinus rhythm with right bundle branch block, rate 96 , no ST-T changes, normal intervals, no ectopy Course & Med Decision Making Course & Med Decision Making Pertinent Labs and Imaging studies reviewed. (See chart for details) She refused lab draw until she was seen by provider. She states she wants narcotic pain medication for pain control. I discussed she should be evaluated , and that I will not give her narcotic pain medication. I offered tylenol and zofran. She refused when nursing went in the room. She refused lab draw again. She then stated she was leaving the ED. Nursing attempted to have her sign AMA form, but she refused. She walked out of the ED with a stable gait. Dragon Disclaimer Dragon Disclaimer This electronic medical record was generated, in whole or in part, using a voice recognition dictation system. Departure Departure Impression: Primary Impression: Chest pain Disposition: AGAINST MEDICAL ADVICE Condition: GUARDED Referrals: HU BAUTISTA MD (PCP) Problem Qualifiers Primary Impression: Chest pain Chest pain type: unspecified Qualified Codes: R07.9 - Chest pain, unspecified Fern BOYER MD May 03, 2017 23:11
[2017-05-03] MEDS ORDERED: ACETAMINOPHEN 500 MG TABLET PO ONE (23:30)
[2017-05-03] MEDS ORDERED: ONDANSETRON ODT 4 MG TAB.RAPDIS. PO ONE (23:30)
--- NOTE | 2017-05-04 07:13 | EKG ---
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
== END 2017-05-03 23:00 | disposition left against medical advice (07) ==
LOC: ER 21:51
DX: R07.89 Other chest pain (principal); R11.0 Nausea; I11.0 Hypertensive heart disease with heart failure; I50.9 Heart failure, unspecified; J44.9 Chronic obstructive pulmonary disease, unspecified; E78.00 Pure hypercholesterolemia, unspecified; Z86.711 Personal history of pulmonary embolism; M32.9 Systemic lupus erythematosus, unspecified; Z87.442 Personal history of urinary calculi; I25.2 Old myocardial infarction; Z90.49 Acquired absence of other specified parts of digestive tract; Z90.710 Acquired absence of both cervix and uterus; Z98.890 Other specified postprocedural states; Z88.0 Allergy status to penicillin; Z88.2 Allergy status to sulfonamides; Z88.6 Allergy status to analgesic agent; Z88.4 Allergy status to anesthetic agent; Z88.1 Allergy status to other antibiotic agents; Z91.041 Radiographic dye allergy status
CPT/HCPCS: 93005; 99283-25

== ENCOUNTER 2017-06-05 16:51 | Emergency (ER) | payer OTHER ==
[~2017-06-05] VITALS: Ht 172.7 cm; Wt 127.0 kg
[2017-06-05] MEDS ORDERED: IV NORMAL SALINE 500ML BAG 500 ML IV SCH (17:45)
[2017-06-05 18:00] VITALS: BP 111/60
[2017-06-05 18:49] LABS: BASO # 0.1 x10^3/uL (0.0-0.2); BASO % 1 % (0-3); EOS % 10 % (0-3); HEMATOCRIT 33.7 % (36.0-47.0); HEMOGLOBIN 11.3 g/dL (12.0-15.5); LYMPH # 2.6 x10^3/uL (1.0-4.8); LYMPH % 31 % (24-48); MEAN CORPUSCULAR HEMOGLOBIN 31 pg (25-35); MEAN CORPUSCULAR HGB CONC 34 g/dL (31-37); MEAN CORPUSCULAR VOLUME 92 fL (79-100); MONO % 9 % (0-9); NEUT % 48 % (31-73); PLATELET COUNT 440 x10^3/uL (140-400); RED BLOOD COUNT 3.66 x10^6/uL (3.50-5.40); RED CELL DISTRIBUTION WIDTH 13.4 % (11.5-14.5); WHITE BLOOD COUNT 8.4 x10^3/uL (4.0-11.0)
[2017-06-05 18:57] LABS: CALCIUM 8.9 mg/dL (8.5-10.1); CREATININE 0.7 mg/dL (0.6-1.0); GFR 92.2; POTASSIUM 4.2 mmol/L (3.5-5.1)
[2017-06-05 18:59] LABS: PROTHROMBIN TIME PATIENT 12.9 SEC (11.7-14.0)
[2017-06-05] MEDS ORDERED: diphenhydrAMINE 50 MG/ML VIAL IVP ONE (19:00)
[2017-06-05] MEDS ORDERED: MORPHINE SULFATE 4 MG/ML DISP.SYRIN. IV ONE (19:00)
[2017-06-05] MEDS ORDERED: IOHEXOL 300 MG/ML 75 ML VIAL IV ONE (19:00)
[2017-06-05] MEDS ORDERED: ONDANSETRON PF 4 MG/2 ML VIAL. IV ONE (19:00)
[2017-06-05] MEDS ORDERED: methylPREDNISolone SOD SUCC PF 125 MG/2 ML VIAL. IV ONE (19:00)
[2017-06-05 19:01] LABS: NEG OBC FOB NEG; POS OBC FOB POS
[2017-06-05 19:03] LABS: ALBUMIN 3.4 g/dL (3.4-5.0); ALBUMIN/GLOBULIN RATIO 0.9 (1.0-1.7); TOTAL BILIRUBIN 0.1 mg/dL (0.2-1.0); TOTAL PROTEIN 7.1 g/dL (6.4-8.2)
[2017-06-05 19:06] LABS: BILIRUBIN,URINE NEGATIVE (NEG); GLUCOSE,URINE NEGATIVE (NEG); NITRITE,URINE NEGATIVE (NEG); PROTEIN,URINE NEGATIVE (NEG-TRACE); UROBILINOGEN,URINE 0.2 mg/dL (0.2 mg/dL)
--- NOTE | 2017-06-05 19:07 | PHYS DOC ---
Past Medical History Past Medical History: CHF, COPD, DVT, High Cholesterol, Hypertension, Kidney Stone, [place], Other Additional Past Medical Histor: PULMONARY EMBOLISM , LUPUS, bleeding stomach ulcers Past Surgical History: Cholecystectomy, , Hysterectomy, Other Additional Past Surgical Histo: IVC FILTER PLACED and removed Alcohol Use: Rarely Drug Use: None Adult General Chief Complaint Chief Complaint: ABDOMINAL PAIN HPI HPI Patient is a 41 year old female with complaints of vomiting, abdominal pain, blood per rectum with with her stools. Patient started having abdominal pain on Friday, on Friday she started vomiting and so some streaks of blood but no yobani blood. After that she started having some stools but she thought she may have seen blood but when I clarify with her she just said that her stools look dark she denies seeing any blood. Her abdominal pain is in the center of her abdomen. Denies any fevers, chills, trauma or sick contacts. Review of Systems Review of Systems Constitutional: Denies fever or chills [] HENT: Denies nasal congestion or sore throat [] Respiratory: Denies cough or shortness of breath [] Cardiovascular: No chest pain GI: yes to abdominal pain, nausea, vomiting, dark stools : Denies dysuria or hematuria , general discharge Musculoskeletal: Denies back pain or joint pain [] Integument: Denies rash or skin lesions [] Neurologic: Denies headache, focal weakness or sensory changes [] Endocrine: Denies polyuria or polydipsia [] Current Medications Current Medications Current Medications Medications (Trade) Dose Ordered Sig/Tex Start Time Stop Time Status Last Admin Dose Admin Diphenhydramine HCl (Benadryl) 25 mg 1X ONCE 06/05/17 19:00 06/05/17 19:01 DC 06/05/17 19:05 25 MG Hyoscyamine (Anaspaz) 0.125 mg PRN Q4HRS PRN 06/05/17 20:45 Info (Do NOT chart on this entry -- for MONITORING) 1 each PRN DAILY PRN 06/05/17 19:15 06/07/17 19:14 Iohexol (Omnipaque 300 Mg/ml) 75 ml 1X ONCE 06/05/17 19:00 06/05/17 19:02 DC 06/05/17 19:16 75 ML Methylprednisolone Sodium Succinate (SOLU-Medrol 125MG VIAL) 125 mg 1X ONCE 06/05/17 19:00 06/05/17 19:01 DC 06/05/17 19:05 125 MG Morphine Sulfate 4 mg 1X ONCE 06/05/17 19:00 06/05/17 19:01 DC 06/05/17 19:06 4 MG Ondansetron HCl (Zofran) 4 mg 1X ONCE 06/05/17 19:00 06/05/17 19:01 DC 06/05/17 19:06 4 MG Sodium Chloride 500 ml @ 500 mls/hr Q1H 06/05/17 17:45 06/05/17 18:03 DC 06/05/17 18:03 500 MLS/HR Sucralfate (Carafate) 1 gm 1X ONCE 06/05/17 21:00 06/05/17 21:01 SD Allergies Allergies Allergies Coded Allergies Type Severity Reaction Last Updated Verified Cephalexin Monohydrate Allergy Intermediate 04/04/17 Yes NSAIDS (Non-Steroidal Anti-Inflamma Allergy Intermediate 04/04/17 Yes Penicillins Allergy Intermediate 04/04/17 Yes iodine Allergy Intermediate 04/04/17 Yes lidocaine Allergy Intermediate 04/04/17 Yes prochlorperazine edisylate Allergy Intermediate 04/04/17 Yes prochlorperazine maleate Allergy Intermediate 04/04/17 Yes sulfamethoxazole Allergy Intermediate 04/04/17 Yes trimethoprim Allergy Intermediate 04/04/17 Yes Physical Exam Physical Exam Constitutional: Well developed, well nourished, no acute distress, non-toxic appearance, morbidly obese HENT: Normocephalic, atraumatic, bilateral external ears normal, oropharynx moist, no oral exudates, nose normal. [] Eyes: PERRLA, EOMI, conjunctiva normal, no discharge. [] Neck: Normal range of motion, no tenderness, supple, no stridor. No LAD no meningeal signs Cardiovascular:Heart rate regular rhythm, no murmur, normal perfusion Lungs & Thorax: Bilateral breath sounds clear to auscultation [] Abdomen: Bowel sounds normal, soft, mild diffuse tenderness without guarding or rebound, no masses, no pulsatile masses. [] Skin: Warm, dry, no erythema, no rash. Nonjaundiced Back: No tenderness, no CVA tenderness. [] Extremities: No tenderness, no cyanosis, no clubbing, ROM intact, no edema. [] Neurologic: Alert and oriented X 3, normal motor function, able to play with normal gait without assistance no focal deficits noted. [] Psychologic: Affect normal, judgement normal, mood normal. [] Current Patient Data Vital Signs Vital Signs Date Time Temp Pulse Resp B/P (MAP) Pulse Ox O2 Delivery O2 Flow Rate FiO2 06/05/17 19:06 27 94 Room Air 06/05/17 18:00 91 111/60 (77) 06/05/17 17:21 98.6 98.6 Lab Values Laboratory Tests Test 06/05/17 18:30 06/05/17 18:45 06/05/17 18:48 06/05/17 19:00 White Blood Count 8.4 x10^3/uL (4.0-11.0) Red Blood Count 3.66 x10^6/uL (3.50-5.40) Hemoglobin 11.3 g/dL (12.0-15.5) L Hematocrit 33.7 % (36.0-47.0) L Mean Corpuscular Volume 92 fL (79-100) Mean Corpuscular Hemoglobin 31 pg (25-35) Mean Corpuscular Hemoglobin Concent 34 g/dL (31-37) Red Cell Distribution Width 13.4 % (11.5-14.5) Platelet Count 440 x10^3/uL (140-400) H Neutrophils (%) (Auto) 48 % (31-73) Lymphocytes (%) (Auto) 31 % (24-48) Monocytes (%) (Auto) 9 % (0-9) Eosinophils (%) (Auto) 10 % (0-3) H Basophils (%) (Auto) 1 % (0-3) Neutrophils # (Auto) 4.1 x10^3uL (1.8-7.7) Lymphocytes # (Auto) 2.6 x10^3/uL (1.0-4.8) Monocytes # (Auto) 0.8 x10^3/uL (0.0-1.1) Eosinophils # (Auto) 0.8 x10^3/uL (0.0-0.7) H Basophils # (Auto) 0.1 x10^3/uL (0.0-0.2) Prothrombin Time 12.9 SEC (11.7-14.0) Prothrombin Time INR 1.0 (0.8-1.1) Sodium Level 140 mmol/L (136-145) Potassium Level 4.2 mmol/L (3.5-5.1) Chloride Level 105 mmol/L (98-107) Carbon Dioxide Level 26 mmol/L (21-32) Anion Gap 9 (6-14) Blood Urea Nitrogen 10 mg/dL (7-20) Creatinine 0.7 mg/dL (0.6-1.0) Estimated GFR (Cockcroft-Gault) 92.2 BUN/Creatinine Ratio 14 (6-20) Glucose Level 105 mg/dL (70-99) H Calcium Level 8.9 mg/dL (8.5-10.1) Total Bilirubin 0.1 mg/dL (0.2-1.0) L Aspartate Amino Transferase (AST) 10 U/L (15-37) L Alanine Aminotransferase (ALT) 17 U/L (14-59) Alkaline Phosphatase 73 U/L (46-116) Total Protein 7.1 g/dL (6.4-8.2) Albumin 3.4 g/dL (3.4-5.0) Albumin/Globulin Ratio 0.9 (1.0-1.7) L Stool Occult Blood Negative (NEG) Urine Collection Type Unknown Urine Color Yellow Urine Clarity Clear Urine pH 5.0 Urine Specific [place] 1.025 Urine Protein Negative mg/dL (NEG-TRACE) Urine Glucose (UA) Negative mg/dL (NEG) Urine Ketones (Stick) Negative mg/dL (NEG) Urine Blood Negative (NEG) Urine Nitrite Negative (NEG) Urine Bilirubin Negative (NEG) Urine Urobilinogen Dipstick 0.2 mg/dL (0.2 mg/dL) Urine Leukocyte Esterase Negative (NEG) Urine RBC 0 /HPF (0-2) Urine WBC Occ /HPF (0-4) Urine Squamous Epithelial Cells Few /LPF Urine Bacteria Few /HPF (0-FEW) Urine Hyaline Casts Occasional /HPF Urine Mucus Mod /LPF Laboratory Tests 06/05/17 18:30 Laboratory Tests 06/05/17 18:45 EKG EKG [] Radiology/Procedures Radiology/Procedures IMPRESSION: 1. Moderate colonic stool. Correlate for possible constipation. 2. Right middle lobe pleural parenchymal scarring, bilateral posterior dependent atelectasis and mid lower lung air trapping, stable in appearance.[] Course & Med Decision Making Course & Med Decision Making Pertinent Labs and Imaging studies reviewed. (See chart for details) and they have been discussed with the patient. Patient has been reevaluated at 2100 to be in no distress and with unremarkable vital signs. I have discussed with the patient the results and the need to follow-up for recheck and reevaluation by her PCP in one day, the patient understands and agrees to follow-up as directed. [] Dragon Disclaimer Dragon Disclaimer This electronic medical record was generated, in whole or in part, using a voice recognition dictation system. Departure Departure Impression: Primary Impression: Abdominal pain Additional Impression: Anemia Disposition: HOME, SELF-CARE Condition: STABLE Referrals: UNKNOWN PCP NAME (PCP) you told us you have a pcp, please follow up in one day to be reevaluated and rechecked and reexamined one day. Patient Instructions: Abdominal Pain, Anemia, Nonspecific-Brief Scripts Hyoscyamine Sulfate (LEVSIN) 0.125 Mg Tablet 1 TAB PO TID, #15 TAB 1 Refill Prov: Perry NULL MD 06/05/17 Sucralfate (CARAFATE) 1 Gm/10 Ml Oral.susp 10 ML PO BID, #120 ML 1 Refill Prov: Perry NULL MD 06/05/17 Problem Qualifiers Perry NULL MD Jun 05, 2017 19:07
[2017-06-05] MEDS ORDERED: CONTRAST GIVEN MC PRN (19:15)
[2017-06-05 19:17] LABS: BACTERIA,URINE FEW /HPF (0-FEW); RBC,URINE 0 /HPF (0-2); WBC,URINE OCC /HPF (0-4)
[2017-06-05 19:18] LABS: SQUAMOUS EPITHELIAL CELL,UR FEW /LPF
--- NOTE | 2017-06-05 19:33 | RAD ---
EXAM: Abdomen and pelvis CT with intravenous contrast. HISTORY: Hematemesis. TECHNIQUE: Computed tomographic images of the abdomen and pelvis were obtained following the administration of 75 cc Omnipaque 300 intravenous contrast. Multiplanar reformatting was performed. The patient was premedicated for a reported contrast allergy. *One or more of the following individualized dose reduction techniques were utilized for this examination: 1. Automated exposure control. 2. Adjustment of the mA and/or kV according to patient size. 3. Use of iterative reconstruction technique. COMPARISON: 04/02/2017. FINDINGS: Evaluation of the lower thorax demonstrates right middle lobe atelectasis or scarring. There is lateral posterior dependent atelectasis. There is bilateral lower lobe air trapping. There is no effusion. The heart is normal in size. No focal hepatic lesion is seen. The gallbladder is centrally absent. The pancreas, spleen, adrenal glands and kidneys are unremarkable. There is moderate colonic stool. There is no evidence of bowel obstruction. The bladder is decompressed. The uterus is surgically absent. There is no pathologically enlarged lymph node. There is no IVC filter in expected position. There is no suspicious osseous lesion. IMPRESSION: 1. Moderate colonic stool. Correlate for possible constipation. 2. Right middle lobe pleural parenchymal scarring, bilateral posterior dependent atelectasis and mid lower lung air trapping, stable in appearance. Electronically signed by: Diandra Dumont MD (06/05/2017 7:29 PM) [facility]
[2017-06-05] MEDS ORDERED: HYOSCYAMINE 0.125 MG TAB.RAPDIS PO PRN (20:45)
[2017-06-05] MEDS ORDERED: SUCRALFATE 1 GM/10 ML ORAL.SUSP. PEG ONE (21:00)
[2017-06-05] MEDS ORDERED: HYOS0.1264 PO (21:15)
[2017-06-05] MEDS ORDERED: SUCR1ORA5 PO (21:15)
== END 2017-06-05 21:30 | disposition home or self-care (01) ==
LOC: ER 16:51
DX: D64.9 Anemia, unspecified (principal); R10.9 Unspecified abdominal pain; I11.0 Hypertensive heart disease with heart failure; I50.9 Heart failure, unspecified; J44.9 Chronic obstructive pulmonary disease, unspecified; Z86.718 Personal history of other venous thrombosis and embolism; I25.2 Old myocardial infarction; Z87.442 Personal history of urinary calculi; E78.00 Pure hypercholesterolemia, unspecified; Z90.710 Acquired absence of both cervix and uterus; Z90.49 Acquired absence of other specified parts of digestive tract; Z88.0 Allergy status to penicillin; Z88.2 Allergy status to sulfonamides; Z88.6 Allergy status to analgesic agent; Z88.8 Allergy status to other drugs, medicaments and biological substances
CPT/HCPCS: 36415; 74177; 80053; 81001; 82274; 85027; 85610; 86850; 86900; 86901; 96361; 96374; 96375; 99285; J1200; J2270; J2405; J2930; J7040; Q9967

== ENCOUNTER 2017-07-22 20:23 | Emergency (ER) | payer OTHER ==
[~2017-07-22 20:23] MED LIST changes: +CLON1TAB3 PO; +FLUO40CA9 PO; +HYOS0.1264 PO; +LISI-334 PO; +RISP4TAB35 PO; +SUCR1ORA5 PO; +ZOLP10TA PO
[2017-07-22 20:29] VITALS: BP 157/81
[2017-07-22 21:36] LABS: BASO # 0.1 x10^3/uL (0.0-0.2); BASO % 1 % (0-3); EOS % 6 % (0-3); HEMATOCRIT 32.3 % (36.0-47.0); HEMOGLOBIN 10.9 g/dL (12.0-15.5); LYMPH # 3.1 x10^3/uL (1.0-4.8); LYMPH % 26 % (24-48); MEAN CORPUSCULAR HEMOGLOBIN 31 pg (25-35); MEAN CORPUSCULAR HGB CONC 34 g/dL (31-37); MEAN CORPUSCULAR VOLUME 92 fL (79-100); MONO % 8 % (0-9); NEUT % 59 % (31-73); PLATELET COUNT 409 x10^3/uL (140-400); RED CELL DISTRIBUTION WIDTH 14.5 % (11.5-14.5); WHITE BLOOD COUNT 12.1 x10^3/uL (4.0-11.0)
[2017-07-22] MEDS ORDERED: ONDANSETRON PF 4 MG/2 ML VIAL. IV ONE (21:45)
[2017-07-22] MEDS ORDERED: IPRATRPIUM/ALBUTEROL 0.5/2.5MG 3 ML NEBU. NEB ONE (21:45)
[2017-07-22 21:51] LABS: CALCIUM 8.5 mg/dL (8.5-10.1); CREATININE 0.8 mg/dL (0.6-1.0); POTASSIUM 3.3 mmol/L (3.5-5.1)
--- NOTE | 2017-07-22 23:35 | ED.ADGEN ---
Past Medical History Past Medical History: CHF, COPD, DVT, High Cholesterol, Hypertension, Kidney Stone, [place], Other Additional Past Medical Histor: PULMONARY EMBOLISM , LUPUS, bleeding stomach ulcers Past Surgical History: Cholecystectomy, , Hysterectomy, Other Additional Past Surgical Histo: IVC FILTER PLACED and removed Alcohol Use: Rarely Drug Use: None Adult General Chief Complaint Chief Complaint: CHEST PAIN HPI HPI Patient is a 41 year old woman, history of lupus, DVT, PE, CAD status post VA, CHF, COPD, presents emergency department complaining of chest tightness located over the left side of her chest. Patient states "this feels like when I had my PE". Patient has been seen previously for similar concerns complaints. She states she was taken off anticoagulation by her primary care provider. She is unable to provide any additional information as to why she was taken off and evaluation, or other concerning history with her PE. PE occurred several years ago. Patient states that she is feeling slightly short of breath, denies any nausea or vomiting, any weakness, tingling, injuries. states it feels " different from my copd". She states symptoms began this morning. Patient's heart rate is 90 beats are minute, sinus rhythm, oxygen saturation of 94-97% room air, was a true rate is 20 and unlabored, blood pressure is 157/88. Review of Systems Review of Systems Constitutional: Denies fever or chills. [] Eyes: Denies change in visual acuity. [] HENT: Denies nasal congestion or sore throat. [] Respiratory: Denies cough, complaining of shortness of breath. Cardiovascular: Chest tightness located across the middle and left side of her chest. No edema.] GI: Denies abdominal pain, nausea, vomiting, bloody stools or diarrhea. [] : Denies dysuria. [] Musculoskeletal: Denies back pain or joint pain. [] Integument: Denies rash. [] Neurologic: Denies headache, focal weakness or sensory changes. [] Endocrine: Denies polyuria or polydipsia. [] Lymphatic: Denies swollen glands. [] Psychiatric: Denies depression or anxiety. [] Current Medications Current Medications Current Medications Medications (Trade) Dose Ordered Sig/Tex Start Time Stop Time Status Last Admin Dose Admin Albuterol/ Ipratropium (Duoneb) 3 ml 1X ONCE 07/22/17 21:45 07/22/17 21:45 DC Ondansetron HCl (Zofran) 4 mg 1X ONCE 07/22/17 21:45 07/22/17 21:45 DC Allergies Allergies Allergies Coded Allergies Type Severity Reaction Last Updated Verified Cephalexin Monohydrate Allergy Intermediate 06/30/17 Yes NSAIDS (Non-Steroidal Anti-Inflamma Allergy Intermediate 06/30/17 Yes Penicillins Allergy Intermediate 06/30/17 Yes iodine Allergy Intermediate 06/30/17 Yes lidocaine Allergy Intermediate 06/30/17 Yes prochlorperazine edisylate Allergy Intermediate 06/30/17 Yes prochlorperazine maleate Allergy Intermediate 06/30/17 Yes sulfamethoxazole Allergy Intermediate 06/30/17 Yes trimethoprim Allergy Intermediate 06/30/17 Yes Physical Exam Physical Exam Constitutional: Well developed, well nourished, no acute distress, non-toxic appearance. [] HENT: Normocephalic, atraumatic, bilateral external ears normal, oropharynx moist, no oral exudates, nose normal. [] Eyes: PERRLA, EOMI, conjunctiva normal, no discharge. [] Neck: Normal range of motion, no tenderness, supple, no stridor. [] Cardiovascular:Heart rate regular rhythm, no murmur, S1, S2, rubs or gallops. [] Lungs & Thorax: Bilateral breath sounds clear to auscultation, no wheezing, rhonchi, rales. No chest or crepitus or tenderness. [] Abdomen: Bowel sounds normal, soft, no rebound, rigidity, no guarding, no tenderness, no masses, no pulsatile masses. [] Skin: Warm, dry, no erythema, no rash. [] Back: No tenderness, no CVA tenderness. Extremities: No tenderness, no cyanosis, no clubbing, ROM intact, no edema. Negative Homans sign.[] Neurologic: Alert and oriented X 3, normal motor function, normal sensory function, no focal deficits noted. [] Psychologic: Affect normal, judgement normal, mood normal. [] Current Patient Data Vital Signs Vital Signs Date Time Temp Pulse Resp B/P (MAP) Pulse Ox O2 Delivery O2 Flow Rate FiO2 07/22/17 20:29 98.1 98 24 157/81 (106) 94 Room Air 98.1 Lab Values Laboratory Tests Test 9/12/17 21:00 White Blood Count 12.1 x10^3/uL (4.0-11.0) H Red Blood Count 3.50 x10^6/uL (3.50-5.40) Hemoglobin 10.9 g/dL (12.0-15.5) L Hematocrit 32.3 % (36.0-47.0) L Mean Corpuscular Volume 92 fL (79-100) Mean Corpuscular Hemoglobin 31 pg (25-35) Mean Corpuscular Hemoglobin Concent 34 g/dL (31-37) Red Cell Distribution Width 14.5 % (11.5-14.5) Platelet Count 409 x10^3/uL (140-400) H Neutrophils (%) (Auto) 59 % (31-73) Lymphocytes (%) (Auto) 26 % (24-48) Monocytes (%) (Auto) 8 % (0-9) Eosinophils (%) (Auto) 6 % (0-3) H Basophils (%) (Auto) 1 % (0-3) Neutrophils # (Auto) 7.2 x10^3uL (1.8-7.7) Lymphocytes # (Auto) 3.1 x10^3/uL (1.0-4.8) Monocytes # (Auto) 0.9 x10^3/uL (0.0-1.1) Eosinophils # (Auto) 0.8 x10^3/uL (0.0-0.7) H Basophils # (Auto) 0.1 x10^3/uL (0.0-0.2) D-Dimer (Rozina) 0.37 ug/mlFEU (0.00-0.50) Sodium Level 144 mmol/L (136-145) Potassium Level 3.3 mmol/L (3.5-5.1) L Chloride Level 109 mmol/L (98-107) H Carbon Dioxide Level 24 mmol/L (21-32) Anion Gap 11 (6-14) Blood Urea Nitrogen 15 mg/dL (7-20) Creatinine 0.8 mg/dL (0.6-1.0) Estimated GFR (Cockcroft-Gault) 79.0 Glucose Level 149 mg/dL (70-99) H Calcium Level 8.5 mg/dL (8.5-10.1) Troponin I Quantitative < 0.017 ng/mL (0.000-0.055) UC-Ppf-N-Type Natriuretic Peptide 40 pg/mL (0-124) Laboratory Tests 07/22/17 21:00 Laboratory Tests 07/22/17 21:00 EKG EKG EC: Sinus rhythm, heart rate 98 beats are minute, incomplete right bundle -branch block noted, QTc of 446, MA 162, QRS of 92, patient with contour abnormality noted in the anterior septal leads, with moderate baseline artifact noted. As interpreted by me.[] Radiology/Procedures Radiology/Procedures Not obtained.[] Course & Med Decision Making Course & Med Decision Making Pertinent Labs and Imaging studies reviewed. (See chart for details) Discussed with patient obtaining laboratory studies and imaging, will start with a d-dimer, chest x-ray, and proceed with additional imaging as needed. Patient offered Zofran, acetaminophen, which she did decline. Patient is requesting narcotic medications. Discussed the patient that we'll not be able to give her narcotic medications at this time, but we'll proceed with appropriate medical evaluation. Patient states that the medications that are offered "will not help", and is declined them. She states that she will not stay for additional evaluation unless she receives stronger medication. Did discuss with patient that it is her choice if she would like to leave AGAINST MEDICAL ADVICE, was given typical precautions regarding potential ability to mortality of not completing her evaluation the ED. Patient voiced understanding. Patient did complete AMA paperwork with nurse, exiting the emergency department without issue. Dragon Disclaimer Dragon Disclaimer This electronic medical record was generated, in whole or in part, using a voice recognition dictation system. Departure Impression: Primary Impression: Left against medical advice Disposition: 07 AGAINST MEDICAL ADVICE Condition: STABLE LUCHO VERDIN DO Jul 22, 2017 23:35
--- NOTE | 2017-07-23 06:34 | EKG ---
[facility] [address] [place] [address] Test Date: 2017-07-22 Test Time: 20:26:30 Pat Name: TRACIE GAONA Department: Room: Gender: F [employer]: : 1975 Requested By: LUCHO VERDIN Order Number: [id number] Reading MD: Measurements Intervals [place] Rate: 98 P: 42 UT: 162 QRS: 20 QRSD: 92 T: 51 QT: 348 QTc: 446 Interpretive Statements SINUS RHYTHM R-S TRANSITION ZONE IN V LEADS DISPLACED TO THE RIGHT INCOMPLETE RIGHT BUNDLE BRANCH BLOCK QRS(T) CONTOUR ABNORMALITY CANNOT RULE OUT ANTEROSEPTAL MYOCARDIAL DAMAGE RI6.01 Unconfirmed report No previous ECG available for comparison
== END 2017-07-22 21:40 | disposition left against medical advice (07) ==
LOC: ER 20:23
DX: R07.89 Other chest pain (principal); I11.0 Hypertensive heart disease with heart failure; I50.9 Heart failure, unspecified; J44.9 Chronic obstructive pulmonary disease, unspecified; I25.10 Atherosclerotic heart disease of native coronary artery without angina pectoris; I25.2 Old myocardial infarction; Z86.718 Personal history of other venous thrombosis and embolism; Z87.442 Personal history of urinary calculi; Z86.711 Personal history of pulmonary embolism; Z87.19 Personal history of other diseases of the digestive system; Z88.0 Allergy status to penicillin; Z88.8 Allergy status to other drugs, medicaments and biological substances; Z88.6 Allergy status to analgesic agent; Z88.4 Allergy status to anesthetic agent; Z88.1 Allergy status to other antibiotic agents; Z91.041 Radiographic dye allergy status
CPT/HCPCS: 36415; 80048; 83880; 84484; 85025; 85379; 93005; 99285-25

== ENCOUNTER 2017-07-30 21:59 | Emergency (ER) | payer OTHER ==
[~2017-07-30] VITALS: Ht 172.7 cm; Wt 127.0 kg
[2017-07-30 22:24] LABS: BILIRUBIN,URINE SMALL (NEG); GLUCOSE,URINE NEGATIVE (NEG); NITRITE,URINE NEGATIVE (NEG); PH,URINE 5.5; PROTEIN,URINE 30 mg/dL (NEG-TRACE); UROBILINOGEN,URINE 0.2 mg/dL (0.2 mg/dL)
[2017-07-30 22:29] LABS: BACTERIA,URINE MODERATE /HPF (0-FEW); RBC,URINE TNTC /HPF (0-2); SQUAMOUS EPITHELIAL CELL,UR MOD /LPF
[2017-07-30] MEDS ORDERED: fentaNYL PF VIAL 100 MCG/2 ML VIAL IM ONE (22:30)
[2017-07-30] MEDS ORDERED: ONDANSETRON PF 4 MG/2 ML VIAL. IV ONE (22:30)
[2017-07-30] MEDS ORDERED: IV NORMAL SALINE 1000ML BAG 1,000 ML IV ONE (22:30)
--- NOTE | 2017-07-30 22:31 | PHYS DOC ---
Past Medical History Past Medical History: CHF, COPD, DVT, High Cholesterol, Hypertension, Kidney Stone, [place], Other Additional Past Medical Histor: PULMONARY EMBOLISM , LUPUS, bleeding stomach ulcers Past Surgical History: Cholecystectomy, , Hysterectomy, Other Additional Past Surgical Histo: IVC FILTER PLACED and removed Alcohol Use: Rarely Drug Use: None Adult General Chief Complaint Chief Complaint: ABDOMINAL PAIN HPI HPI Patient is a 41 year old morbidly obese female presents to the emergency department with 2 day history of right flank pain that radiates to the right lower abdomen. She does have associated hematuria. Patient has a history of kidney stones with her last episode of discomfort 2 years ago. Patient has experienced no nausea, no vomiting, no fever. Review of Systems Review of Systems Constitutional: Denies fever or chills [] Eyes: Denies change in visual acuity, redness, or eye pain [] HENT: Denies nasal congestion or sore throat [] Respiratory: Denies cough or shortness of breath [] Cardiovascular: No additional information not addressed in HPI [] GI: Denies abdominal pain, nausea, vomiting, bloody stools or diarrhea [] : Denies dysuria; complaining of hematuria Musculoskeletal: Right CVAT Integument: Denies rash or skin lesions [] Neurologic: Denies headache, focal weakness or sensory changes [] Endocrine: Denies polyuria or polydipsia [] Current Medications Current Medications Current Medications Medications (Trade) Dose Ordered Sig/Tex Start Time Stop Time Status Last Admin Dose Admin Fentanyl Citrate (Fentanyl 2ml Vial) 50 mcg 1X ONCE 07/30/17 22:30 07/30/17 22:31 DC 07/30/17 22:52 50 MCG Ondansetron HCl (Zofran) 4 mg 1X ONCE 07/30/17 22:30 07/30/17 22:31 DC 07/30/17 22:50 4 MG Sodium Chloride 1,000 ml @ 1,000 mls/hr 1X ONCE 07/30/17 22:30 07/30/17 23:29 07/30/17 22:51 1,000 MLS/HR Allergies Allergies Allergies Coded Allergies Type Severity Reaction Last Updated Verified Cephalexin Monohydrate Allergy Intermediate 06/30/17 Yes NSAIDS (Non-Steroidal Anti-Inflamma Allergy Intermediate 06/30/17 Yes Penicillins Allergy Intermediate 06/30/17 Yes iodine Allergy Intermediate 06/30/17 Yes lidocaine Allergy Intermediate 06/30/17 Yes prochlorperazine edisylate Allergy Intermediate 06/30/17 Yes prochlorperazine maleate Allergy Intermediate 06/30/17 Yes sulfamethoxazole Allergy Intermediate 06/30/17 Yes trimethoprim Allergy Intermediate 06/30/17 Yes Physical Exam Physical Exam Constitutional: Well developed, well nourished, no acute distress, non-toxic appearance. [] HENT: Normocephalic, atraumatic, bilateral external ears normal, oropharynx moist, no oral exudates, nose normal. [] Eyes: PERRLA, EOMI, conjunctiva normal, no discharge. [] Neck: Normal range of motion, no tenderness, supple, no stridor. [] Cardiovascular:Heart rate regular rhythm, no murmur [] Lungs & Thorax: Bilateral breath sounds clear to auscultation [] Abdomen: Bowel sounds normal, soft, no tenderness, no masses, no pulsatile masses. [] Skin: Warm, dry, no erythema, no rash. [] Back: Mild tenderness in the right flank. Extremities: No tenderness, no cyanosis, no clubbing, ROM intact, no edema. [] Neurologic: Alert and oriented X 3, normal motor function, normal sensory function, no focal deficits noted. [] Psychologic: Affect normal, judgement normal, mood normal. [] Current Patient Data Vital Signs Vital Signs Date Time Temp Pulse Resp B/P (MAP) Pulse Ox O2 Delivery O2 Flow Rate FiO2 07/30/17 23:09 79 20 108/63 (78) 98 Room Air 07/30/17 22:07 98.6 98.6 Lab Values Laboratory Tests Test 07/30/17 22:15 07/30/17 22:17 Urine Collection Type Unknown Urine Color Red Urine Clarity Cloudy Urine pH 5.5 Urine Specific [place] >=1.030 Urine Protein 30 mg/dL (NEG-TRACE) Urine Glucose (UA) Negative mg/dL (NEG) Urine Ketones (Stick) Negative mg/dL (NEG) Urine Blood Large (NEG) Urine Nitrite Negative (NEG) Urine Bilirubin Small (NEG) Urine Urobilinogen Dipstick 0.2 mg/dL (0.2 mg/dL) Urine Leukocyte Esterase Small (NEG) Urine RBC Tntc /HPF (0-2) Urine WBC 1-4 /HPF (0-4) Urine Squamous Epithelial Cells Mod /LPF Urine Bacteria Moderate /HPF (0-FEW) Urine Hyaline Casts Few /HPF Urine Mucus Mod /LPF POC Urine HCG, Qualitative Hcg negative (Negative) EKG EKG [] Radiology/Procedures Radiology/Procedures [] Course & Med Decision Making Course & Med Decision Making Pertinent Labs and Imaging studies reviewed. (See chart for details) 2310: Patient reports no pain. She states she is feeling better. Plan for discharge []Patient's urine with hematuria, no evidence of urinary tract infection. With a previous history of kidney stones, a CT CAT scan will not be performed this emergency department visit. Patient will be given 1 L normal saline in the emergency department with fentanyl and Zofran. Once the patient has received relief of her discomfort, she will be discharged home with Flomax, Tylenol with Codeine, Zofran. She is to follow-up with urology and she will be given a referral resource for her. She is return to the emergency Department for new symptoms or concerns or worsening of current condition. Dragon Disclaimer Dragon Disclaimer This electronic medical record was generated, in whole or in part, using a voice recognition dictation system. Departure Departure Impression: Primary Impression: Hematuria Additional Impression: History of renal calculi Disposition: HOME, SELF-CARE Condition: STABLE Referrals: UNKNOWN PCP NAME (PCP) Patient Instructions: Hematuria, Adult, Kidney Stones Additional Instructions: Follow up at [facility] - CALL FOR AN APPOINTMENT [address] [phone] Scripts Acetaminophen With Codeine (TYLENOL WITH CODEINE #3 TABLET) 1 Each Tablet 1 TAB PO PRN Q4HRS Y for PAIN, #15 TAB Prov: NAVEED ARMANDO APRN 07/30/17 Tamsulosin Hcl (FLOMAX) 0.4 Mg Cap.er.24h 1 CAP PO DAILY, #7 CAP 0 Refills Prov: NAVEED ARMANDO APRN 07/30/17 Ondansetron (ZOFRAN ODT) 4 Mg Tab.rapdis 1 TAB SL Q8HRS Y for nausea and vomiting, #15 TAB Prov: NAVEED ARMANDO APRN 07/30/17 Problem Qualifiers Primary Impression: Hematuria Hematuria type: gross Qualified Codes: R31.0 - Gross hematuria NAVEED ARMANDO CONSULTING ENGINEER Jul 30, 2017 22:31
[2017-07-30] MEDS ORDERED: ONDA4TAB10 SL (22:42)
[2017-07-30] MEDS ORDERED: TAMS0.4C97 PO (22:42)
[2017-07-30] MEDS ORDERED: ACET-704 PO (22:42)
[2017-07-30 23:09] VITALS: BP 108/63
== END 2017-07-30 23:25 | disposition home or self-care (01) ==
LOC: ER 21:59
DX: N20.0 Calculus of kidney (principal); R31.0 Gross hematuria; I11.0 Hypertensive heart disease with heart failure; I50.9 Heart failure, unspecified; J44.9 Chronic obstructive pulmonary disease, unspecified; Z87.442 Personal history of urinary calculi; I25.2 Old myocardial infarction; Z86.718 Personal history of other venous thrombosis and embolism; Z86.711 Personal history of pulmonary embolism; Z90.49 Acquired absence of other specified parts of digestive tract; Z98.890 Other specified postprocedural states; Z88.8 Allergy status to other drugs, medicaments and biological substances; Z88.6 Allergy status to analgesic agent; Z88.4 Allergy status to anesthetic agent; Z88.1 Allergy status to other antibiotic agents; Z91.041 Radiographic dye allergy status
CPT/HCPCS: 81001; 81025; 87086; 96361; 96372; 96374; 99284; J2405; J3010; J7030

== ENCOUNTER 2017-08-01 19:33 | Emergency (ER) | payer OTHER ==
[~2017-08-01] VITALS: Ht 172.7 cm; Wt 127.0 kg
[~2017-08-01 19:33] MED LIST changes: +ACET-704 PO; +TAMS0.4C97 PO
[2017-08-01 20:50] LABS: BASO # 0.1 x10^3/uL (0.0-0.2); BASO % 1 % (0-3); EOS % 8 % (0-3); HEMATOCRIT 32.4 % (36.0-47.0); HEMOGLOBIN 10.8 g/dL (12.0-15.5); LYMPH # 2.6 x10^3/uL (1.0-4.8); LYMPH % 26 % (24-48); MEAN CORPUSCULAR HEMOGLOBIN 31 pg (25-35); MEAN CORPUSCULAR HGB CONC 34 g/dL (31-37); MEAN CORPUSCULAR VOLUME 93 fL (79-100); MONO % 11 % (0-9); NEUT % 53 % (31-73); PLATELET COUNT 488 x10^3/uL (140-400); RED BLOOD COUNT 3.49 x10^6/uL (3.50-5.40); RED CELL DISTRIBUTION WIDTH 14.8 % (11.5-14.5); WHITE BLOOD COUNT 9.9 x10^3/uL (4.0-11.0)
[2017-08-01 20:52] LABS: BILIRUBIN,URINE MODERATE (NEG); GLUCOSE,URINE NEGATIVE (NEG); NITRITE,URINE NEGATIVE (NEG); PH,URINE 5.5; PROTEIN,URINE 100 mg/dL (NEG-TRACE); UROBILINOGEN,URINE 0.2 mg/dL (0.2 mg/dL)
[2017-08-01] MEDS ORDERED: ONDANSETRON PF 4 MG/2 ML VIAL. IV ONE ×2 (21:00→22:00)
[2017-08-01 21:02] LABS: BACTERIA,URINE MODERATE /HPF (0-FEW); RBC,URINE TNTC /HPF (0-2); SQUAMOUS EPITHELIAL CELL,UR OCC /LPF
[2017-08-01 21:07] LABS: CALCIUM 8.9 mg/dL (8.5-10.1); CREATININE 0.8 mg/dL (0.6-1.0); POTASSIUM 3.9 mmol/L (3.5-5.1)
[2017-08-01 21:13] LABS: ALBUMIN 3.5 g/dL (3.4-5.0); ALBUMIN/GLOBULIN RATIO 0.9 (1.0-1.7); TOTAL BILIRUBIN 0.2 mg/dL (0.2-1.0); TOTAL PROTEIN 7.4 g/dL (6.4-8.2)
[2017-08-01 21:46] VITALS: BP 104/67
--- NOTE | 2017-08-01 21:49 | RAD ---
CT study of the abdomen and pelvis without contrast HISTORY: Abdominal pain. History of lupus. COMPARISON: June 29, 2017. COMPARISON: Noncontrast helical CT scanning of the abdomen and pelvis was performed. Without contrast, the sensitivity to detect organ pathology and GI tract pathology is decreased. PQRS compliance Statement One or more of the following individualized dose reduction techniques were utilized for this study: 1. Automated exposure control 2. Adjustment of the mA and/or kV according to patient size 3. Use of iterative reconstruction technique FINDINGS: The liver and spleen and pancreas are homogeneous in appearance on this noncontrast study. No adrenal mass is evident. No renal stone or renal mass or hydronephrosis or hydroureter is seen. Urinary bladder is decompressed. The uterus is surgically absent. No focal aneurysmal dilatation of the abdominal aorta is seen. No enlarged abdominal or pelvic lymphadenopathy is evident. There is focal wall thickening of the mid sigmoid colon best seen on images 173 through 180 and series 2. No pericolonic inflammatory change is seen. No obstructive bowel pattern is seen. The appendix is not visualized but there are no CT findings of appendicitis. No free air or free fluid or mesenteric inflammatory change is seen. Chronic scarring is seen within the right middle lobe. Heart size mildly enlarged. No osteolytic process is seen. IMPRESSION: Segmental wall thickening of the mid sigmoid colon. No pericolic inflammatory change. This may represent mild diverticulitis or colonic spasm. This was not seen previously on June 29, 2017 and therefore neoplasm is considered unlikely. Electronically signed by: Bjorn Valerio MD (08/01/2017 9:46 PM) [facility]
[2017-08-01] MEDS ORDERED: metroNIDAZOLE 500 MG TABLET PO ONE (22:00)
[2017-08-01] MEDS ORDERED: CIPROFLOXACIN HCL 250 MG TABLET. PO ONE (22:00)
[2017-08-01] MEDS ORDERED: traMADol 50 MG TABLET PO ONE (22:00)
[2017-08-01] MEDS ORDERED: CIPR500T94 PO (22:04)
[2017-08-01] MEDS ORDERED: ONDA4TAB10 SL (22:04)
[2017-08-01] MEDS ORDERED: METR500T PO (22:04)
[2017-08-01] MEDS ORDERED: TRAM-48 PO (22:04)
--- NOTE | 2017-08-01 22:04 | PHYS DOC ---
Past Medical History Past Medical History: CHF, COPD, DVT, High Cholesterol, Hypertension, Kidney Stone, [place], Other Additional Past Medical Histor: Pulmonary Embolism, Lupus, Bleeding Gastric Ulcers Past Surgical History: Cholecystectomy, , Hysterectomy, Other Additional Past Surgical Histo: IVC filter placed and removed Alcohol Use: Rarely Drug Use: None Adult General Chief Complaint Chief Complaint: MULTIPLE COMPLAINTS HPI HPI Patient is a 41 year old female who presents to the ER today complaining of abdominal pain. Patient reports that she was seen here a couple days ago was diagnosed with a kidney stone. Patient reports that she was DC'd on Flomax and Zofran and Tylenol with Codeine however she reports that the pain is too much for her to handle. Patient reports that she's having increasing hematuria increasing pain and increased swelling to her lower extremities. Patient denies any fevers shakes chills nausea vomiting or diarrhea. Patient has a dysuria frequency or urgency. Patient complaining of flank pain. Patient with a history of heart failure lupus coronary disease hypertension and elevated cholesterol. Patient reports she does smoke but does not drink or do drugs. Patient has had a , cholecystectomy and appendectomy. Review of Systems Review of Systems Constitutional: Denies fever or chills Eyes: Denies change in visual acuity, redness, or eye pain HENT: Denies nasal congestion or sore throat All other review systems are negative except as documented in history of present illness. Current Medications Current Medications Current Medications Medications (Trade) Dose Ordered Sig/[facility] Start Time Stop Time Status Last Admin Dose Admin Ciprofloxacin (Cipro) 500 mg 1X ONCE 08/01/17 22:00 08/01/17 22:01 DC 08/01/17 22:09 500 MG Metronidazole (Flagyl) 500 mg 1X ONCE 08/01/17 22:00 08/01/17 22:01 DC 08/01/17 22:09 500 MG Ondansetron HCl (Zofran) 4 mg 1X ONCE 08/01/17 22:00 08/01/17 22:01 DC 08/01/17 22:08 4 MG Tramadol HCl (Ultram) 50 mg 1X ONCE 08/01/17 22:00 08/01/17 22:01 DC 08/01/17 22:09 50 MG Allergies Allergies Allergies Coded Allergies Type Severity Reaction Last Updated Verified Cephalexin Monohydrate Allergy Intermediate 06/30/17 Yes NSAIDS (Non-Steroidal Anti-Inflamma Allergy Intermediate 06/30/17 Yes Penicillins Allergy Intermediate 06/30/17 Yes iodine Allergy Intermediate 06/30/17 Yes lidocaine Allergy Intermediate 06/30/17 Yes prochlorperazine edisylate Allergy Intermediate 06/30/17 Yes prochlorperazine maleate Allergy Intermediate 06/30/17 Yes sulfamethoxazole Allergy Intermediate 06/30/17 Yes trimethoprim Allergy Intermediate 06/30/17 Yes Physical Exam Physical Exam Constitutional: Well developed, well nourished, no acute distress, non-toxic appearance. HENT: Normocephalic, atraumatic, bilateral external ears normal, oropharynx moist, no oral exudates, nose normal. Eyes: PERRLA, EOMI, conjunctiva normal, no discharge. Neck: Normal range of motion, no tenderness, supple, no stridor. Cardiovascular:Heart rate regular rhythm, Lungs & Thorax: Bilateral breath sounds clear to auscultation Abdomen: Bowel sounds normal, soft, mild tenderness to palpation to her flank bilaterally. Skin: Warm, dry, no erythema, no rash. Back: No tenderness, no CVA tenderness. Extremities: No tenderness, no cyanosis, no clubbing, ROM intact, 2+ bipedal edema. Neurologic: Alert and oriented X 3, normal motor function, normal sensory function, no focal deficits noted. Psychologic: Affect normal, judgement normal, mood normal. Current Patient Data Vital Signs Vital Signs Date Time Temp Pulse Resp B/P (MAP) Pulse Ox O2 Delivery O2 Flow Rate FiO2 08/01/17 21:46 82 21 104/67 (79) 94 Nasal Cannula 2.0 08/01/17 19:40 97.8 97.8 Lab Values Laboratory Tests Test 08/01/17 19:40 08/01/17 20:05 Urine Collection Type Unknown Urine Color Red Urine Clarity Turbid Urine pH 5.5 Urine Specific [place] 1.025 Urine Protein 100 mg/dL (NEG-TRACE) Urine Glucose (UA) Negative mg/dL (NEG) Urine Ketones (Stick) Trace mg/dL (NEG) Urine Blood Large (NEG) Urine Nitrite Negative (NEG) Urine Bilirubin Moderate (NEG) Urine Urobilinogen Dipstick 0.2 mg/dL (0.2 mg/dL) Urine Leukocyte Esterase Small (NEG) Urine RBC Tntc /HPF (0-2) Urine WBC 1-4 /HPF (0-4) Urine Squamous Epithelial Cells Occ /LPF Urine Bacteria Moderate /HPF (0-FEW) Urine Hyaline Casts Moderate /HPF Urine Mucus Slight /LPF White Blood Count 9.9 x10^3/uL (4.0-11.0) Red Blood Count 3.49 x10^6/uL (3.50-5.40) L Hemoglobin 10.8 g/dL (12.0-15.5) L Hematocrit 32.4 % (36.0-47.0) L Mean Corpuscular Volume 93 fL (79-100) Mean Corpuscular Hemoglobin 31 pg (25-35) Mean Corpuscular Hemoglobin Concent 34 g/dL (31-37) Red Cell Distribution Width 14.8 % (11.5-14.5) H Platelet Count 488 x10^3/uL (140-400) H Neutrophils (%) (Auto) 53 % (31-73) Lymphocytes (%) (Auto) 26 % (24-48) Monocytes (%) (Auto) 11 % (0-9) H Eosinophils (%) (Auto) 8 % (0-3) H Basophils (%) (Auto) 1 % (0-3) Neutrophils # (Auto) 5.3 x10^3uL (1.8-7.7) Lymphocytes # (Auto) 2.6 x10^3/uL (1.0-4.8) Monocytes # (Auto) 1.1 x10^3/uL (0.0-1.1) Eosinophils # (Auto) 0.8 x10^3/uL (0.0-0.7) H Basophils # (Auto) 0.1 x10^3/uL (0.0-0.2) Sodium Level 141 mmol/L (136-145) Potassium Level 3.9 mmol/L (3.5-5.1) Chloride Level 102 mmol/L (98-107) Carbon Dioxide Level 29 mmol/L (21-32) Anion Gap 10 (6-14) Blood Urea Nitrogen 7 mg/dL (7-20) Creatinine 0.8 mg/dL (0.6-1.0) Estimated GFR (Cockcroft-Gault) 79.0 BUN/Creatinine Ratio 9 (6-20) Glucose Level 102 mg/dL (70-99) H Calcium Level 8.9 mg/dL (8.5-10.1) Total Bilirubin 0.2 mg/dL (0.2-1.0) Aspartate Amino Transferase (AST) 11 U/L (15-37) L Alanine Aminotransferase (ALT) 21 U/L (14-59) Alkaline Phosphatase 70 U/L (46-116) FZ-Jdt-O-Type Natriuretic Peptide 150 pg/mL (0-124) H Total Protein 7.4 g/dL (6.4-8.2) Albumin 3.5 g/dL (3.4-5.0) Albumin/Globulin Ratio 0.9 (1.0-1.7) L Laboratory Tests 08/01/17 20:05 Laboratory Tests 08/01/17 20:05 EKG EKG [] Radiology/Procedures Radiology/Procedures [] Course & Med Decision Making Course & Med Decision Making Pertinent Labs and Imaging studies reviewed. (See chart for details) []This is a 41-year-old female who presents to the ER today complaining of persistent pain after being diagnosed with a kidney stone. Upon review the patient's records here at [facility] patient was evaluated for her pain and had a presumptive diagnosis of kidney stones. Patient was given fentanyl and was pain-free and was discharged home. A CT scan was deferred secondary to the amount of radiation and the report of the patient at this feels like her prior kidney stones. Patient presents today reporting increasing hematuria, increasing pain, increasing lower extremity edema. Given her new symptoms a CT scan was ordered. I discussed with the patient that I would give her something help her nausea however we've held off giving her any narcotic pain medicines until definitive diagnosis could be ascertained. Patient had a CT scan of her abdomen and pelvis here in the ED without contrast which revealed no evidence of hydronephrosis no kidney stones. There was an incidental finding of possible sigmoid diverticulitis on the CT scan. Patient's presentation to the ER is not consistent with diverticulitis however given the CT report I have discussed with the patient the option of treating her with antibiotics for it. Patient is currently in agreement with initiating antibiotics to treat her diverticulitis. Patient's white count is within normal limits and she does not have an elevated white count. There is no current indication for admission to the hospital for IV antibiotics. Patient has been given IV Zofran, IV fluids and has been given a dose of by mouth Ultram. Patient does have by mouth narcotic pain medicines at home that she can continue taking to assist with her pain as well as a prescription for Zofran and help her with her nausea. Patient's clinically hemodynamically stable at this time for discharged home and there is no current indication for inpatient or ER evaluation. Dragon Disclaimer Dragon Disclaimer This electronic medical record was generated, in whole or in part, using a voice recognition dictation system. Departure Departure Impression: Primary Impression: Abdominal pain Additional Impressions: Diverticulitis Hematuria Disposition: , SELF-CARE Condition: IMPROVED Referrals: UNKNOWN PCP NAME (PCP) Patient Instructions: Abdominal Pain (Nonspecific), Diverticulitis, Hematuria, Child Scripts Ondansetron (ZOFRAN ODT) 4 Mg Tab.rapdis 1 TAB SL Q6HRS Y for NAUSEA, #12 TAB Prov: LULY ZEPEDA MD 08/01/17 Tramadol Hcl (ULTRAM) 50 Mg Tablet 1 TAB PO Q6HRS, #14 TAB Prov: LULY ZEPEDA MD 08/01/17 Metronidazole (FLAGYL) 500 Mg Tablet 500 MG PO TID, #30 TAB Prov: LULY ZEPEDA MD 08/01/17 Ciprofloxacin Hcl (CIPRO) 500 Mg Tablet 1 TAB PO BID, #20 TAB Prov: LULY ZEPEDA MD 08/01/17 Problem Qualifiers LULY ZEPEDA MD Aug 01, 2017 22:04
== END 2017-08-01 22:16 | disposition home or self-care (01) ==
LOC: ER 19:33
DX: K57.92 Diverticulitis of intestine, part unspecified, without perforation or abscess without bleeding (principal); R31.9 Hematuria, unspecified; R22.43 Localized swelling, mass and lump, lower limb, bilateral; I11.0 Hypertensive heart disease with heart failure; I50.9 Heart failure, unspecified; E78.00 Pure hypercholesterolemia, unspecified; J44.9 Chronic obstructive pulmonary disease, unspecified; Z86.718 Personal history of other venous thrombosis and embolism; Z87.442 Personal history of urinary calculi; Z86.711 Personal history of pulmonary embolism; I25.2 Old myocardial infarction; Z90.49 Acquired absence of other specified parts of digestive tract; Z90.710 Acquired absence of both cervix and uterus; Z98.890 Other specified postprocedural states; Z88.0 Allergy status to penicillin; Z88.8 Allergy status to other drugs, medicaments and biological substances; Z88.6 Allergy status to analgesic agent; Z88.4 Allergy status to anesthetic agent; Z88.1 Allergy status to other antibiotic agents; Z91.041 Radiographic dye allergy status
CPT/HCPCS: 36415; 74176; 80053; 81001; 83880; 85025; 87086; 87186; 96374; 96376; 99285; J2405

== ENCOUNTER 2017-08-05 14:07 | Emergency (ER) | payer OTHER ==
[~2017-08-05] VITALS: Ht 172.7 cm; Wt 127.0 kg
[~2017-08-05 14:07] MED LIST changes: +CIPR500T94 PO; +METR500T PO; +TRAM-48 PO
--- NOTE | 2017-08-05 14:37 | PHYS DOC ---
Past Medical History Past Medical History: CHF, COPD, DVT, High Cholesterol, Hypertension, Kidney Stone, [place], Other Additional Past Medical Histor: Pulmonary Embolism, Lupus, Bleeding Gastric Ulcers Past Surgical History: Cholecystectomy, , Hysterectomy, Other Additional Past Surgical Histo: IVC filter placed and removed Additional Information: "About" 1PPD. Alcohol Use: Rarely Drug Use: None Adult General Chief Complaint Chief Complaint: CHEST PAIN HPI HPI Patient is a 41 year old female who presents with chest pain is pleuritic in nature. She states it started 2 hours ago. She states it hurts worse and she takes a big deep breath its on the left side doesn't radiate nothing makes it feel better. She states that she was just sitting when this pain started she was watching TV. She denies any nausea or vomiting associated with this. She states it feels just like when she had her PE in the past. She states she took some Tylenol and nitroglycerin at home without any relief. He states she's had a history of PE in the past. Review of Systems Review of Systems Constitutional: Denies fever or chills [] Eyes: Denies change in visual acuity, redness, or eye pain [] HENT: Denies nasal congestion or sore throat [] Respiratory: Denies cough, positive for shortness of breath [] Cardiovascular: No additional information not addressed in HPI [] GI: Denies abdominal pain, nausea, vomiting, bloody stools or diarrhea [] : Denies dysuria or hematuria [] Musculoskeletal: Denies back pain or joint pain [] Integument: Denies rash or skin lesions [] Neurologic: Denies headache, focal weakness or sensory changes [] Endocrine: Denies polyuria or polydipsia [] Allergies Allergies Allergies Coded Allergies Type Severity Reaction Last Updated Verified Cephalexin Monohydrate Allergy Intermediate 06/30/17 Yes NSAIDS (Non-Steroidal Anti-Inflamma Allergy Intermediate 06/30/17 Yes Penicillins Allergy Intermediate 06/30/17 Yes iodine Allergy Intermediate 06/30/17 Yes lidocaine Allergy Intermediate 06/30/17 Yes prochlorperazine edisylate Allergy Intermediate 06/30/17 Yes prochlorperazine maleate Allergy Intermediate 06/30/17 Yes sulfamethoxazole Allergy Intermediate 06/30/17 Yes trimethoprim Allergy Intermediate 06/30/17 Yes Physical Exam Physical Exam Constitutional: Well developed, well nourished, no acute distress, non-toxic appearance. [] HENT: Normocephalic, atraumatic, bilateral external ears normal, oropharynx moist, no oral exudates, nose normal. [] Eyes: PERRLA, EOMI, conjunctiva normal, no discharge. [] Neck: Normal range of motion, no tenderness, supple, no stridor. [] Cardiovascular:Heart rate regular rhythm, no murmur [] Lungs & Thorax: Bilateral breath sounds clear to auscultation [] Abdomen: Bowel sounds normal, soft, no tenderness, no masses, no pulsatile masses. [] Skin: Warm, dry, no erythema, no rash. [] Back: No tenderness, no CVA tenderness. [] Extremities: No tenderness, no cyanosis, no clubbing, ROM intact, no edema. [] Neurologic: Alert and oriented X 3, normal motor function, normal sensory function, no focal deficits noted. [] Psychologic: Affect normal, judgement normal, mood normal. [] Current Patient Data Vital Signs Vital Signs Date Time Temp Pulse Resp B/P (MAP) Pulse Ox O2 Delivery O2 Flow Rate FiO2 08/05/17 14:49 88 18 134/76 (95) 98 Room Air 08/05/17 14:15 98.3 98.3 Lab Values Laboratory Tests Test 08/05/17 14:37 Urine Collection Type Unknown Urine Color [place] Urine Clarity Clear Urine pH 5.5 Urine Specific [place] >=1.030 Urine Protein Negative mg/dL (NEG-TRACE) Urine Glucose (UA) Negative mg/dL (NEG) Urine Ketones (Stick) Negative mg/dL (NEG) Urine Blood Small (NEG) Urine Nitrite Negative (NEG) Urine Bilirubin Small (NEG) Urine Urobilinogen Dipstick 0.2 mg/dL (0.2 mg/dL) Urine Leukocyte Esterase Negative (NEG) Urine RBC 11-20 /HPF (0-2) Urine WBC 1-4 /HPF (0-4) Urine Squamous Epithelial Cells Mod /LPF Urine Bacteria Moderate /HPF (0-FEW) Urine Mucus Marked /LPF Urine Opiates Screen Pos (NEG) Urine Methadone Screen Neg (NEG) Urine Barbiturates Neg (NEG) Urine Phencyclidine Screen Neg (NEG) Urine Amphetamine/Methamphetamine Neg (NEG) Urine Benzodiazepines Screen Pos (NEG) Urine Cocaine Screen Neg (NEG) Urine Cannabinoids Screen Neg (NEG) Urine Ethyl Alcohol Neg (NEG) EKG EKG EKG shows sinus rhythm with rate of [address] elevations or T-wave inversions appreciated, left axis deviation noted, QTC 420 ms, as interpreted by me. Radiology/Procedures Radiology/Procedures [] Impressions: Chest pain Course & Med Decision Making Course & Med Decision Making Pertinent Labs and Imaging studies reviewed. (See chart for details) Patient was requesting IV pain meds and I explained to her that we would start with Tylenol and workup. She states that she wants to leave without any further evaluation being done if I'm not going to give her the cot ache pain medicine. I 've offered her nitroglycerin for pain or Tylenol but she refuses any of these options. I cleaned her that if we find acute abnormalities we will give her narcotic pain medicines but she does not want to proceed with any additional workup I find her that she could or become severely disabled if she chose to leave AGAINST MEDICAL ADVICE without additional workup. She states she understands the risk and signed the paperwork to leave AGAINST MEDICAL ADVICE. Dragon Disclaimer Dragon Disclaimer This electronic medical record was generated, in whole or in part, using a voice recognition dictation system. Departure Departure Impression: Primary Impression: Chest pain Disposition: AGAINST MEDICAL ADVICE Condition: STABLE Referrals: NO PCP (PCP) Problem Qualifiers Primary Impression: Chest pain Chest pain type: chest pain on breathing Qualified Codes: R07.1 - Chest pain on breathing KIM ALCOCER MD Aug 05, 2017 14:37
[2017-08-05 14:49] VITALS: BP 134/76
[2017-08-05 15:01] LABS: BILIRUBIN,URINE SMALL (NEG); GLUCOSE,URINE NEGATIVE (NEG); NITRITE,URINE NEGATIVE (NEG); PH,URINE 5.5; PROTEIN,URINE NEGATIVE (NEG-TRACE); UROBILINOGEN,URINE 0.2 mg/dL (0.2 mg/dL)
[2017-08-05 15:08] LABS: BARBITURATES NEG (NEG); BENZODIAZEPINES POS (NEG); CANNABINOIDS NEG (NEG); COCAINE NEG (NEG); METHADONE NEG (NEG); OPIATES POS (NEG); PHENCYCLIDINE NEG (NEG)
[2017-08-05 15:16] LABS: BACTERIA,URINE MODERATE /HPF (0-FEW); SQUAMOUS EPITHELIAL CELL,UR MOD /LPF
--- NOTE | 2017-08-05 15:18 | RAD ---
EXAM: CHEST 1 VIEW History: Chest pain COMPARISON: 04/04/2017 TECHNIQUE: Single portable radiograph of the chest FINDINGS: The cardiac silhouette is unremarkable. The lungs are clear bilaterally. The costophrenic sulci are clear and well demarcated. IMPRESSION: No radiographic evidence of an acute cardiopulmonary process.
--- NOTE | 2017-08-05 15:39 | EKG ---
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
== END 2017-08-05 15:10 | disposition left against medical advice (07) ==
LOC: ER 14:07
DX: R07.81 Pleurodynia (principal); I11.0 Hypertensive heart disease with heart failure; I50.9 Heart failure, unspecified; E78.00 Pure hypercholesterolemia, unspecified; J44.9 Chronic obstructive pulmonary disease, unspecified; M32.9 Systemic lupus erythematosus, unspecified; Z86.711 Personal history of pulmonary embolism; Z87.442 Personal history of urinary calculi; Z86.718 Personal history of other venous thrombosis and embolism; I25.2 Old myocardial infarction; Z90.710 Acquired absence of both cervix and uterus; Z90.49 Acquired absence of other specified parts of digestive tract; F17.200 Nicotine dependence, unspecified, uncomplicated; Z88.0 Allergy status to penicillin; Z88.1 Allergy status to other antibiotic agents; Z88.4 Allergy status to anesthetic agent; Z91.041 Radiographic dye allergy status; Z88.6 Allergy status to analgesic agent; Z88.8 Allergy status to other drugs, medicaments and biological substances
CPT/HCPCS: 71010; 80307; 81001; 87086; 93005; 99285-25; G0479

== ENCOUNTER 2017-08-20 17:58 | Emergency (ER) | payer OTHER ==
[~2017-08-20] VITALS: Ht 172.7 cm; Wt 127.0 kg
[2017-08-20 18:31] VITALS: BP 134/84
--- NOTE | 2017-08-20 18:58 | PHYS DOC ---
Past Medical History Past Medical History: CHF, COPD, DVT, High Cholesterol, Hypertension, Kidney Stone, [place], Other Additional Past Medical Histor: Pulmonary Embolism, Lupus, Bleeding Gastric Ulcers Past Surgical History: Cholecystectomy, , Hysterectomy, Other Additional Past Surgical Histo: IVC filter placed and removed Alcohol Use: Rarely Drug Use: None Adult General Chief Complaint Chief Complaint: CHEST PAIN HPI HPI Patient is a 41 year old female who presented to the ED by EMS with the complaint of chest pain. Patient states she was watching a movie with her kids and developed chest pain on the left side of her chest about 45 minutes prior to calling 911. It was associated with nausea but no vomiting. She states she has been short of air for about 2 days. She denies fever or chills, denies cough. She smokes one pack per day. Chart reviewed, noted that the patient has been in the ED several times this year for chest pain. I asked the patient if this pain is like her recent visits for chest pain and she states "no this one is different, it feels like a PE". Patient states she had a PE about 1-1/2 years ago, she was hospitalized in a different state. They attributed to "Lupus ". She states she was on Coumadin for a while but it was discontinued about 6 or 8 months ago. Patient states that she is allergic to IV contrast but in the past she has been pretreated and has been able to have contrast Patient states she is allergic to NSAIDs and ibuprofen, it causes her to swell up and have problems breathing. Patient does not have a PCP, she was recently referred and has an appointment next week. Review of Systems Review of Systems Constitutional: Denies fever or chills [] HENT: Denies nasal congestion or sore throat [] Respiratory: As in history of present illness Cardiovascular: As in history of present illness GI: Denies abdominal pain, nausea, vomiting, bloody stools or diarrhea [] Musculoskeletal: Denies back pain or joint pain [] Allergies Allergies Allergies Coded Allergies Type Severity Reaction Last Updated Verified Cephalexin Monohydrate Allergy Intermediate 06/30/17 Yes NSAIDS (Non-Steroidal Anti-Inflamma Allergy Intermediate 06/30/17 Yes Penicillins Allergy Intermediate 06/30/17 Yes iodine Allergy Intermediate 06/30/17 Yes lidocaine Allergy Intermediate 06/30/17 Yes prochlorperazine edisylate Allergy Intermediate 06/30/17 Yes prochlorperazine maleate Allergy Intermediate 06/30/17 Yes sulfamethoxazole Allergy Intermediate 06/30/17 Yes trimethoprim Allergy Intermediate 06/30/17 Yes Physical Exam Physical Exam Constitutional: Well developed, well nourished, no acute distress, non-toxic appearance. [] HENT: Normocephalic, atraumatic, bilateral external ears normal, oropharynx moist, no oral exudates, nose normal. [] Eyes: PERRLA, EOMI, conjunctiva normal, no discharge. [] Neck: Normal range of motion, no tenderness, supple, no stridor. [] Cardiovascular:Heart rate regular rhythm, no murmur [] Lungs & Thorax: Bilateral breath sounds clear to auscultation [] Abdomen: Bowel sounds normal, soft, no tenderness, no masses, no pulsatile masses. [] Skin: Warm, dry, no erythema, no rash. [] Back: No tenderness, no CVA tenderness. [] Extremities: No tenderness, no cyanosis, no clubbing, ROM intact, no edema. [] Neurologic: Alert and oriented X 3, normal motor function, normal sensory function, no focal deficits noted. [] Psychologic: Affect normal, judgement normal, mood normal. [] Current Patient Data Vital Signs Vital Signs Date Time Temp Pulse Resp B/P (MAP) Pulse Ox O2 Delivery O2 Flow Rate FiO2 08/20/17 18:31 101 134/84 (101) 97 Room Air 08/20/17 18:10 97.5 16 97.5 EKG EKG Twelve-lead EKG read by me. Sinus rhythm. Heart rate 87. There are no acute ST or T wave changes indicative of ischemia or infarction. No STEMI. 1805[] Radiology/Procedures Radiology/Procedures [] Course & Med Decision Making Course & Med Decision Making Pertinent Labs and Imaging studies reviewed. (See chart for details) 41-year-old female presents to the ED with left-sided chest pain onset about 45 minutes prior to her calling 911. EKG is normal. Pulse ox on room air was 100% when I was in the room visiting with the patient. Patient states she has a history of pulmonary embolism. I recommended to her that we would check a d- dimer to help us determine how to proceed. Patient was agreeable to that plan. Patient stated that she would like to have something for the pain. I discussed with her that my first choice would be some type of an anti-inflammatory but since she states an allergy to NSAIDs, at this time I would like to hold off and see what her lab tests show. Additionally, she took Tylenol at home prior to coming in. The patient became upset and stated that she would rather go home if we are not going to give her anything for pain. I did discuss with the patient that my concern is that she has a history of pulmonary embolism and we should further evaluate that in the emergency department, however, the patient declined to stay and have any further evaluation and so she was signed out AGAINST MEDICAL ADVICE by ED nursing staff. [] Dragon Disclaimer Dragon Disclaimer This electronic medical record was generated, in whole or in part, using a voice recognition dictation system. Departure Departure Impression: Primary Impression: Chest pain Disposition: 07 AGAINST MEDICAL ADVICE Condition: STABLE Referrals: NO PCP (PCP) Additional Instructions: Today, I recommended that we check a blood test to determine whether or not we need to do further testing for pulmonary embolism. You have declined to have that test done and stay for the results at this time. If you change your mind and decide that you want to have further evaluation, return to emergency. ASHA PEDERSEN MD Aug 20, 2017 18:58
--- NOTE | 2017-08-21 08:52 | EKG ---
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
== END 2017-08-20 18:59 | disposition left against medical advice (07) ==
LOC: ER 17:58
DX: R07.89 Other chest pain (principal); R11.0 Nausea; I11.0 Hypertensive heart disease with heart failure; I50.9 Heart failure, unspecified; J44.9 Chronic obstructive pulmonary disease, unspecified; E78.00 Pure hypercholesterolemia, unspecified; I25.2 Old myocardial infarction; F17.200 Nicotine dependence, unspecified, uncomplicated; M32.9 Systemic lupus erythematosus, unspecified; Z86.711 Personal history of pulmonary embolism; Z88.0 Allergy status to penicillin; Z88.6 Allergy status to analgesic agent; Z88.1 Allergy status to other antibiotic agents; Z88.8 Allergy status to other drugs, medicaments and biological substances; Z87.442 Personal history of urinary calculi; Z86.718 Personal history of other venous thrombosis and embolism; Z88.2 Allergy status to sulfonamides
CPT/HCPCS: 93005; 99283-25

== ENCOUNTER 2017-09-20 19:17 | Emergency (ER) | payer OTHER ==
[~2017-09-20] VITALS: Ht 172.7 cm; Wt 127.0 kg
[2017-09-20 19:19] VITALS: BP 112/62
--- NOTE | 2017-09-20 19:45 | PHYS DOC ---
Past Medical History Past Medical History: CHF, COPD, DVT, High Cholesterol, Hypertension, Kidney Stone, [place], Other Additional Past Medical Histor: Pulmonary Embolism, Lupus, Bleeding Gastric Ulcers Past Surgical History: Cholecystectomy, , Hysterectomy, Other Additional Past Surgical Histo: IVC filter placed and removed Alcohol Use: Rarely Drug Use: None Adult General Chief Complaint Chief Complaint: CHEST PAIN HPI HPI Patient is a 42 year old female who presents ambulatory to the ED with the complaint of left-sided chest pain and shortness of breath that started about 1- 1/2 hours ago. Patient states she was watching TV with her children. She had some pain on the left side of her chest, but then she "stretched" and had some sharp pain on the left side of her chest and she is also short of breath. She states "it feels like when I had a PE". Patient states she was hospitalized about 1-1/2 years ago in [place] for PE. She states she was on Coumadin and Lovenox for about a year, and her doctor took her off of that about 6 months ago. She does not believe she was worked up for the cause of PE. She thinks they attributed it to lupus. She now goes to the doctor at [facility]. Patient states she did have a car trip recently to [place] and back where she was riding. She has had some pain in her right calf and some swelling of her left calf. Pt states she has had an PR and congestive heart failure. She takes Lasix and Crestor. She believes she was hospitalized at [facility] for that. Patient states she is allergic to NSAIDs, they cause her to become very sick. Patient states that about 1 hour ago she took 2 extra strength Tylenol and 2 nitroglycerin and that did not help at all. I asked the patient if she had been seen recently for this type of complaint and she stated she did not believe so. However, I saw the patient 1 month ago for virtually the same exact presentation, and when I reminded her of that she stated she did recall that. Review of Systems Review of Systems Constitutional: Denies fever or chills [] Respiratory: As in history of present illness Cardiovascular: As in history of present illness : Denies , she has had a hysterectomy. Musculoskeletal: As in history of present illness Integument: Admits to itchy skin rash that she attributes to dry skin All other systems were reviewed and found to be within normal limits, except as documented in this note. Allergies Allergies Allergies Coded Allergies Type Severity Reaction Last Updated Verified Cephalexin Monohydrate Allergy Intermediate 06/30/17 Yes NSAIDS (Non-Steroidal Anti-Inflamma Allergy Intermediate 06/30/17 Yes Penicillins Allergy Intermediate 06/30/17 Yes iodine Allergy Intermediate 06/30/17 Yes lidocaine Allergy Intermediate 06/30/17 Yes prochlorperazine edisylate Allergy Intermediate 06/30/17 Yes prochlorperazine maleate Allergy Intermediate 06/30/17 Yes sulfamethoxazole Allergy Intermediate 06/30/17 Yes trimethoprim Allergy Intermediate 06/30/17 Yes Physical Exam Physical Exam Constitutional: Obese female, alert, mentating normally, warm and dry, no acute distress. Pulse ox on room air mid 90s. Patient does not appear dyspneic or short of air that she appears to have episodes of this. HENT: Normocephalic, atraumatic, bilateral external ears normal, nose normal. [ ] Eyes: conjunctiva normal, no discharge. [] Neck: Normal range of motion, no stridor. [] Cardiovascular:Heart rate regular rhythm, no murmur [] Lungs & Thorax: Bilateral breath sounds clear to auscultation with good air movement throughout with no wheezes Skin: Warm, dry, no erythema, scattered scabbed rash on both arms, nonspecific, no vesicles Extremities: No tenderness, no cyanosis, no clubbing, ROM intact, no edema. [] Neurologic: Alert and oriented X 3, normal motor function, normal sensory function, no focal deficits noted. [] Current Patient Data Vital Signs Vital Signs Date Time Temp Pulse Resp B/P (MAP) Pulse Ox O2 Delivery O2 Flow Rate FiO2 09/20/17 19:19 97.5 97 18 112/62 (79) 97 Room Air 97.5 EKG EKG 12-lead EKG read by me. Sinus rhythm. Heart rate 97. Right bundle branch block. There are no acute ST or T wave changes indicative of ischemia or infarction. No STEMI. 192[] Radiology/Procedures Radiology/Procedures [] Course & Med Decision Making Course & Med Decision Making Pertinent Labs and Imaging studies reviewed. (See chart for details) 42-year-old female presents with left-sided chest pain and shortness of breath for about 1-1/2 hours. Patient states she has a history of PE. I advised the patient that we will check some lab tests to guide us in further decision making. I discussed with her that she may require some type of radiology study but we tend to be cautious about overuse of radiographs. At that point, she told me that she had actually had 2 pulmonary emboli, one about one and half years ago and one be half year later that "her doctor treated as an outpatient" . Patient asked if she could have something for nausea and pain. We discussed the fact that I will prescribe some nausea medication. She has taken 2 extra strength Tylenol about 1 hour ago, 2 nitroglycerin, and she states she is allergic to NSAIDs. I told her at that point I would not really have anything to recommend further for pain at this time but we could certainly give her something for nausea. After I left the room, the patient refused to be registered and removed her monitor, got herself dressed, and left the emergency department ambulatory. She did not sign out or discuss with me any further. [] Dragon Disclaimer Dragon Disclaimer This electronic medical record was generated, in whole or in part, using a voice recognition dictation system. Departure Departure Impression: Primary Impression: Chest pain Additional Impression: Chest pain of uncertain etiology Disposition: 01 HOME, SELF-CARE Condition: STABLE Referrals: NO PCP (PCP) Additional Instructions: Patient left prior to getting discharge instructions. Problem Qualifiers ASHA PEDERSEN MD Sep 20, 2017 19:45
--- NOTE | 2017-09-21 07:02 | EKG ---
[facility] [address] [place] [address] Test Date: 2017-09-20 Test Time: 19:21:23 Pat Name: TRACIE GAONA Department: Room: Gender: F Safety Risk Lead: : 1975 Requested By: ASHA PEDERSEN Order Number: [id number] Reading MD: Mauricio Shafer MD Measurements Intervals [place] Rate: 97 P: 27 [place]: 152 QRS: 4 QRSD: 96 T: 44 QT: 338 QTc: 433 Interpretive Statements SINUS RHYTHM R-S TRANSITION ZONE IN V LEADS DISPLACED TO THE RIGHT INCOMPLETE RIGHT BUNDLE BRANCH BLOCK RVH WITH REPOLARIZATION ABNORMALITY Electronically Signed On 09-22-2017 10:00:38 SMUDGER by Mauricio Shafer MD
== END 2017-09-20 19:49 | disposition home or self-care (01) ==
LOC: ER 19:17
DX: R07.89 Other chest pain (principal); R06.02 Shortness of breath; I11.0 Hypertensive heart disease with heart failure; I50.9 Heart failure, unspecified; I25.2 Old myocardial infarction; E78.00 Pure hypercholesterolemia, unspecified; J44.9 Chronic obstructive pulmonary disease, unspecified; M32.9 Systemic lupus erythematosus, unspecified; Z86.711 Personal history of pulmonary embolism; Z87.442 Personal history of urinary calculi; Z90.49 Acquired absence of other specified parts of digestive tract; Z90.710 Acquired absence of both cervix and uterus; Z88.0 Allergy status to penicillin; Z88.1 Allergy status to other antibiotic agents; Z88.2 Allergy status to sulfonamides; Z91.041 Radiographic dye allergy status; Z88.8 Allergy status to other drugs, medicaments and biological substances
CPT/HCPCS: 93005; 99283-25

== ENCOUNTER 2017-09-26 23:10 | Emergency (ER) | payer OTHER ==
[~2017-09-26] VITALS: Ht 172.7 cm; Wt 127.0 kg
[2017-09-26] MEDS ORDERED: IV NORMAL SALINE 1000ML BAG 1,000 ML IV SCH (23:45)
[2017-09-27 00:04] LABS: BILIRUBIN,URINE NEGATIVE (NEG); GLUCOSE,URINE NEGATIVE (NEG); NITRITE,URINE NEGATIVE (NEG); PROTEIN,URINE NEGATIVE (NEG-TRACE); UROBILINOGEN,URINE 0.2 mg/dL (0.2 mg/dL)
[2017-09-27 00:14] LABS: BACTERIA,URINE MOD /HPF (0-FEW); RBC,URINE 20-40 /HPF (0-2); SQUAMOUS EPITHELIAL CELL,UR MANY /LPF
[2017-09-27 00:15] LABS: BASO # 0.1 x10^3/uL (0.0-0.2); BASO % 1 % (0-3); EOS % 7 % (0-3); HEMATOCRIT 32.8 % (36.0-47.0); HEMOGLOBIN 10.8 g/dL (12.0-15.5); LYMPH % 27 % (24-48); MEAN CORPUSCULAR HEMOGLOBIN 30 pg (25-35); MEAN CORPUSCULAR HGB CONC 33 g/dL (31-37); MEAN CORPUSCULAR VOLUME 92 fL (79-100); MONO % 7 % (0-9); NEUT % 58 % (31-73); PLATELET COUNT 450 x10^3/uL (140-400); RED BLOOD COUNT 3.56 x10^6/uL (3.50-5.40); RED CELL DISTRIBUTION WIDTH 14.7 % (11.5-14.5); WHITE BLOOD COUNT 11.3 x10^3/uL (4.0-11.0)
[2017-09-27] MEDS ORDERED: KETOROLAC 30 MG/ML INJ. IV ONE (00:15)
[2017-09-27 00:25] LABS: CALCIUM 8.6 mg/dL (8.5-10.1); CREATININE 0.8 mg/dL (0.6-1.0); GFR 78.7; POTASSIUM 3.2 mmol/L (3.5-5.1)
[2017-09-27 00:30] LABS: ALBUMIN 3.7 g/dL (3.4-5.0); TOTAL BILIRUBIN 0.2 mg/dL (0.2-1.0); TOTAL PROTEIN 7.4 g/dL (6.4-8.2)
--- NOTE | 2017-09-27 00:33 | RAD ---
PQRS Compliance Statement: One or more of the following individualized dose reduction techniques were utilized for this examination: 1. Automated exposure control 2. Adjustment of the mA and/or kV according to patient size 3. Use of iterative reconstruction technique CT abdomen/pelvis without contrast September 26, 2017 INDICATION: Right flank pain COMPARISON: CT abdomen/pelvis August 01, 2017 TECHNIQUE: Multiple axial CT images of the abdomen and pelvis were obtained without intravenous contrast. Coronal and sagittal reformats are provided. FINDINGS: Scattered areas of groundglass attenuation is noted within the bilateral lower lobes which may reflect subsegmental atelectasis versus developing pulmonary edema/infiltrates. Heart size normal. The liver, spleen, bilateral adrenal glands and pancreas are normal in appearance. Gallbladder surgically absent. There is no intrahepatic or extrahepatic periductal dilatation. The abdominal aorta is normal in course and caliber. An IVC filter is present. There are no pathologically enlarged abdominal lymph nodes. There is a prominent right inguinal lymph node measuring 1.5 cm. Left inguinal lymph node measures 1.5 cm. External iliac artery lymph nodes are normal in size and morphology with fatty kai. There is no free fluid or free intraperitoneal air. No calculi are identified within the kidneys, ureters or urinary bladder. Urinary bladder is within normal limits given degree of distention. There is no hydronephrosis. Small and large bowel are normal in caliber. No evidence for bowel obstruction. No pericolonic inflammatory changes are present. The appendix is not definitively visualized. However, no inflammatory changes are identified in the right lower quadrant. Urinary bladder is within normal limits. No pelvic masses are identified. No suspicious osseous lesions are identified. IMPRESSION: 1. There are no calculi within the kidneys, ureters or urinary bladder. No evidence for obstructive uropathy. No hydronephrosis. 2. Borderline enlarged bilateral inguinal lymph nodes measuring up to 1.5 cm. Findings may be reactive. Recommend correlation with any recent infection. A short-term 3 month follow-up ultrasound may be of benefit to ensure resolution. 3. Scattered areas of groundglass attenuation in the bilateral lower lobes may reflect subsegmental atelectasis/respiratory motion versus developing pulmonary edema. Electronically signed by: Shelly Pickett MD (09/27/2017 12:30 AM) [facility]
[2017-09-27 01:05] VITALS: BP 109/69
--- NOTE | 2017-09-27 01:08 | PHYS DOC ---
Past Medical History Past Medical History: CHF, COPD, DVT, High Cholesterol, Hypertension, Kidney Stone, [place], UTI, Other Additional Past Medical Histor: Pulmonary Embolism, Lupus, Bleeding Gastric Ulcers Past Surgical History: Cholecystectomy, , Hysterectomy, Other Additional Past Surgical Histo: IVC filter placed and removed Alcohol Use: Rarely Drug Use: None Adult General Chief Complaint Chief Complaint: ABDOMINAL PAIN HPI HPI Patient is a 42 year old [f__sex] who presents with [] Review of Systems Review of Systems Constitutional: Denies fever or chills [] Eyes: Denies change in visual acuity, redness, or eye pain [] HENT: Denies nasal congestion or sore throat [] Respiratory: Denies cough or shortness of breath [] Cardiovascular: No additional information not addressed in HPI [] GI: Denies abdominal pain, nausea, vomiting, bloody stools or diarrhea [] : Denies dysuria or hematuria [] Musculoskeletal: Denies back pain or joint pain [] Integument: Denies rash or skin lesions [] Neurologic: Denies headache, focal weakness or sensory changes [] Endocrine: Denies polyuria or polydipsia [] All other systems were reviewed and found to be within normal limits, except as documented in this note. Current Medications Current Medications Current Medications Medications (Trade) Dose Ordered Sig/Tex Start Time Stop Time Status Last Admin Dose Admin Acetaminophen/ Hydrocodone Bitart (Lortab 5/325) 1 tab 1X ONCE 09/27/17 01:15 09/27/17 01:16 UNV Ketorolac Tromethamine (Toradol) 30 mg 1X ONCE 09/27/17 00:15 09/27/17 00:16 DC 09/27/17 00:22 30 MG Sodium Chloride 1,000 ml @ 999 mls/hr Q1H1M 09/26/17 23:45 09/27/17 00:22 999 MLS/HR Allergies Allergies Allergies Coded Allergies Type Severity Reaction Last Updated Verified Cephalexin Monohydrate Allergy Intermediate 06/30/17 Yes NSAIDS (Non-Steroidal Anti-Inflamma Allergy Intermediate 09/27/17 Yes Penicillins Allergy Intermediate 06/30/17 Yes iodine Allergy Intermediate 06/30/17 Yes lidocaine Allergy Intermediate 06/30/17 Yes prochlorperazine edisylate Allergy Intermediate 06/30/17 Yes prochlorperazine maleate Allergy Intermediate 06/30/17 Yes sulfamethoxazole Allergy Intermediate 06/30/17 Yes trimethoprim Allergy Intermediate 06/30/17 Yes Physical Exam Physical Exam Constitutional: Well developed, well nourished, no acute distress, non-toxic appearance. [] HENT: Normocephalic, atraumatic, bilateral external ears normal, oropharynx moist, no oral exudates, nose normal. [] Eyes: PERRLA, EOMI, conjunctiva normal, no discharge. [] Neck: Normal range of motion, no tenderness, supple, no stridor. [] Cardiovascular:Heart rate regular rhythm, no murmur [] Lungs & Thorax: Bilateral breath sounds clear to auscultation [] Abdomen: Bowel sounds normal, soft, no tenderness, no masses, no pulsatile masses. [] Skin: Warm, dry, no erythema, no rash. [] Back: No tenderness, no CVA tenderness. [] Extremities: No tenderness, no cyanosis, no clubbing, ROM intact, no edema. [] Neurologic: Alert and oriented X 3, normal motor function, normal sensory function, no focal deficits noted. [] Psychologic: Affect normal, judgement normal, mood normal. [] Current Patient Data Vital Signs Vital Signs Date Time Temp Pulse Resp B/P (MAP) Pulse Ox O2 Delivery O2 Flow Rate FiO2 09/26/17 23:16 97.6 97 22 121/55 (77) 97 Room Air 97.6 Lab Values Laboratory Tests Test 09/26/17 23:16 09/26/17 23:59 Urine Collection Type Unknown Urine Color Yellow Urine Clarity Clear Urine pH 6.0 Urine Specific [place] 1.020 Urine Protein Negative mg/dL (NEG-TRACE) Urine Glucose (UA) Negative mg/dL (NEG) Urine Ketones (Stick) Negative mg/dL (NEG) Urine Blood Large (NEG) Urine Nitrite Negative (NEG) Urine Bilirubin Negative (NEG) Urine Urobilinogen Dipstick 0.2 mg/dL (0.2 mg/dL) Urine Leukocyte Esterase Negative (NEG) Urine RBC 20-40 /HPF (0-2) Urine WBC 5-10 /HPF (0-4) Urine Squamous Epithelial Cells Many /LPF Urine Bacteria Mod /HPF (0-FEW) Urine Mucus Marked /LPF White Blood Count 11.3 x10^3/uL (4.0-11.0) H Red Blood Count 3.56 x10^6/uL (3.50-5.40) Hemoglobin 10.8 g/dL (12.0-15.5) L Hematocrit 32.8 % (36.0-47.0) L Mean Corpuscular Volume 92 fL (79-100) Mean Corpuscular Hemoglobin 30 pg (25-35) Mean Corpuscular Hemoglobin Concent 33 g/dL (31-37) Red Cell Distribution Width 14.7 % (11.5-14.5) H Platelet Count 450 x10^3/uL (140-400) H Neutrophils (%) (Auto) 58 % (31-73) Lymphocytes (%) (Auto) 27 % (24-48) Monocytes (%) (Auto) 7 % (0-9) Eosinophils (%) (Auto) 7 % (0-3) H Basophils (%) (Auto) 1 % (0-3) Neutrophils # (Auto) 6.6 x10^3uL (1.8-7.7) Lymphocytes # (Auto) 3.0 x10^3/uL (1.0-4.8) Monocytes # (Auto) 0.8 x10^3/uL (0.0-1.1) Eosinophils # (Auto) 0.8 x10^3/uL (0.0-0.7) H Basophils # (Auto) 0.1 x10^3/uL (0.0-0.2) Sodium Level 139 mmol/L (136-145) Potassium Level 3.2 mmol/L (3.5-5.1) L Chloride Level 103 mmol/L (98-107) Carbon Dioxide Level 23 mmol/L (21-32) Anion Gap 13 (6-14) Blood Urea Nitrogen 10 mg/dL (7-20) Creatinine 0.8 mg/dL (0.6-1.0) Estimated GFR (Cockcroft-Gault) 78.7 BUN/Creatinine Ratio 13 (6-20) Glucose Level 127 mg/dL (70-99) H Calcium Level 8.6 mg/dL (8.5-10.1) Total Bilirubin 0.2 mg/dL (0.2-1.0) Aspartate Amino Transferase (AST) 11 U/L (15-37) L Alanine Aminotransferase (ALT) 16 U/L (14-59) Alkaline Phosphatase 78 U/L (46-116) Total Protein 7.4 g/dL (6.4-8.2) Albumin 3.7 g/dL (3.4-5.0) Albumin/Globulin Ratio 1.0 (1.0-1.7) Lipase 60 U/L (73-393) L Laboratory Tests 09/26/17 23:59 Laboratory Tests 09/26/17 23:59 EKG EKG [] Radiology/Procedures Radiology/Procedures [] Course & Med Decision Making Course & Med Decision Making Pertinent Labs and Imaging studies reviewed. (See chart for details) [] Dragon Disclaimer Dragon Disclaimer This electronic medical record was generated, in whole or in part, using a voice recognition dictation system. Departure Departure Impression: Primary Impression: Low back pain Additional Impressions: Mild anemia Hypokalemia Disposition: HOME, SELF-CARE Condition: IMPROVED Referrals: NO PCP (PCP) Patient Instructions: Back Pain, Adult Additional Instructions: You're not passing kidney stone currently. It appears that you're low back pain is of a musculoskeletal are Anabel. Take Tylenol as needed. U have mild anemia with a hemoglobin of 10.8. Follow-up with your doctor for further workup for definitive diagnosis of the cause of your anemia and treatment as needed. Your potassium was slightly low at 3.2 we've addressed with a single potassium pill which is adequate treatment in this situation. Follow-up with your doctor tomorrow and return immediately for new severe or worsening symptoms Problem Qualifiers GREGORIA DUARTE MD Sep 27, 2017 01:08
[2017-09-27] MEDS ORDERED: POTASSIUM CHLORIDE 20 MEQ TABLET.ER. PO ONE ×2 (01:15→01:16)
[2017-09-27] MEDS ORDERED: HYDROcodone/APAP 5/325MG 1 TAB TABLET PO ONE (01:15)
[2017-09-27] MEDS ORDERED: HYDROcodone/APAP 5/325MG 1 TAB TABLET ONE (01:16)
== END 2017-09-27 01:24 | disposition home or self-care (01) ==
LOC: ER 23:10
DX: M54.5 Low back pain (principal); D64.9 Anemia, unspecified; E87.6 Hypokalemia; E78.00 Pure hypercholesterolemia, unspecified; I11.0 Hypertensive heart disease with heart failure; I50.9 Heart failure, unspecified; J44.9 Chronic obstructive pulmonary disease, unspecified; Z87.440 Personal history of urinary (tract) infections; Z86.718 Personal history of other venous thrombosis and embolism; I25.2 Old myocardial infarction; Z86.711 Personal history of pulmonary embolism; Z90.710 Acquired absence of both cervix and uterus; Z90.49 Acquired absence of other specified parts of digestive tract; Z88.0 Allergy status to penicillin; Z88.2 Allergy status to sulfonamides; Z88.8 Allergy status to other drugs, medicaments and biological substances; Z88.6 Allergy status to analgesic agent; Z88.1 Allergy status to other antibiotic agents; Z91.041 Radiographic dye allergy status
CPT/HCPCS: 36415; 74176; 80053; 81001; 83690; 85025; 96361; 96374; 99285; J1885; J7030

== ENCOUNTER 2017-10-20 03:07 | Emergency (ER) | payer OTHER ==
[~2017-10-20] VITALS: Ht 162.6 cm; Wt 127.0 kg
[2017-10-20] MEDS ORDERED: NITROGLYCERIN SUBLINGUAL 0.4 MG BOTTLE OF 25. SL PRN (03:15)
--- NOTE | 2017-10-20 03:22 | PHYS DOC ---
Past Medical History Past Medical History: CHF, COPD, DVT, High Cholesterol, Hypertension, Kidney Stone, [place], UTI, Other Additional Past Medical Histor: Pulmonary Embolism, Lupus, Bleeding Gastric Ulcers Past Surgical History: Cholecystectomy, , Hysterectomy, Other Additional Past Surgical Histo: IVC filter placed and removed Alcohol Use: Rarely Drug Use: None Adult General Chief Complaint Chief Complaint: chest pain HPI HPI Patient is a 42 year old female who presents with chest pain. She states her pain started about an hour prior to calling 911. She states that it feels just like her previous PE. States it's a pressure/pain sensation in the substernal area and does not radiate. She states she felt nauseated chest with this but no diaphoresis. He states the pains worse with movement, breathing and walking. She states she took a nitroglycerin at home and that did not change her pain. EMS states that they gave 324 aspirin in route. She states she is allergic to all nonsteroidals but can take aspirin. She states she's had a history of PE before secondary to her lupus. Review of Systems Review of Systems Constitutional: Denies fever or chills [] Eyes: Denies change in visual acuity, redness, or eye pain [] HENT: Denies nasal congestion or sore throat [] Respiratory: Denies cough, positive for shortness of breath [] Cardiovascular: No additional information not addressed in HPI [] GI: Denies abdominal pain, nausea, vomiting, bloody stools or diarrhea [] : Denies dysuria or hematuria [] Musculoskeletal: Denies back pain or joint pain [] Integument: Denies rash or skin lesions [] Neurologic: Denies headache, focal weakness or sensory changes [] Endocrine: Denies polyuria or polydipsia [] All other systems were reviewed and found to be within normal limits, except as documented in this note. Current Medications Current Medications Current Medications Medications (Trade) Dose Ordered Sig/Tex Start Time Stop Time Status Last Admin Dose Admin Fentanyl Citrate (Fentanyl 2ml Vial) 50 mcg PRN Q15MIN PRN 10/20/17 03:45 10/20/17 04:08 DC Nitroglycerin (Nitrostat) 0.4 mg PRN Q5MIN PRN 10/20/17 03:15 10/20/17 04:08 DC Ondansetron HCl (Zofran Odt) 4 mg 1X ONCE 10/20/17 04:00 10/20/17 04:01 DC 10/20/17 03:46 4 MG Ondansetron HCl (Zofran) 4 mg 1X ONCE 10/20/17 03:45 10/20/17 03:46 DC Allergies Allergies Allergies Coded Allergies Type Severity Reaction Last Updated Verified Cephalexin Monohydrate Allergy Intermediate 06/30/17 Yes NSAIDS (Non-Steroidal Anti-Inflamma Allergy Intermediate 09/27/17 Yes Penicillins Allergy Intermediate 06/30/17 Yes iodine Allergy Intermediate 06/30/17 Yes lidocaine Allergy Intermediate 06/30/17 Yes prochlorperazine edisylate Allergy Intermediate 06/30/17 Yes prochlorperazine maleate Allergy Intermediate 06/30/17 Yes sulfamethoxazole Allergy Intermediate 06/30/17 Yes trimethoprim Allergy Intermediate 06/30/17 Yes Physical Exam Physical Exam Constitutional: Well developed, well nourished, no acute distress, non-toxic appearance. [] HENT: Normocephalic, atraumatic, bilateral external ears normal, oropharynx moist, no oral exudates, nose normal. [] Eyes: PERRLA, EOMI, conjunctiva normal, no discharge. [] Neck: Normal range of motion, no tenderness, supple, no stridor. [] Cardiovascular:Heart rate regular rhythm, no murmur [] Lungs & Thorax: Bilateral breath sounds clear to auscultation [] Abdomen: Bowel sounds normal, soft, no tenderness, no masses, no pulsatile masses. [] Skin: Warm, dry, no erythema, no rash. [] Back: No tenderness, no CVA tenderness. [] Extremities: No tenderness, no cyanosis, no clubbing, ROM intact, no edema. [] Neurologic: Alert and oriented X 3, normal motor function, normal sensory function, no focal deficits noted. [] Psychologic: Affect normal, judgement normal, mood normal. [] Current Patient Data Vital Signs Vital Signs Date Time Temp Pulse Resp B/P (MAP) Pulse Ox O2 Delivery O2 Flow Rate FiO2 10/20/17 03:57 77 25 127/64 (85) 94 Room Air 10/20/17 03:24 97.4 97.4 EKG EKG EKG shows sinus rhythm with a rate of [address] elevations appreciated or concerning T-wave inversions, left axis deviation noted, QTC 444 ms, as interpreted by me. EKG similar one performed on September 20, 2017. Radiology/Procedures Radiology/Procedures [] Impressions: Chest pain Shortness of breath Lupus Course & Med Decision Making Course & Med Decision Making Pertinent Labs and Imaging studies reviewed. (See chart for details) After initial evaluation the patient is requesting pain meds and she states she' s allergic to nonsteroidals even though she tolerates aspirin. I explained to her that we can't do anything until you get an IV in and evaluate what is going on with her. She states that she is going to leave AGAINST MEDICAL ADVICE at this point. I educated her on the fact that this and emergency department and were here to take care of of life threatening situations. She wants to know if we do get IV, will l I take care of her pain. I told her that yes, we can treat her pain and once we established an IV and understand what exactly is going on with her. In the meanwhile I gave her ODT Zofran for nausea. Nurses attempted IV access and she decided that she didn't want to stay longer and left. She refused to sign the AMA form. Her vitals were stable and she was not tachypneic or tachycardic. Dragon Disclaimer Dragon Disclaimer This electronic medical record was generated, in whole or in part, using a voice recognition dictation system. Departure Departure Impression: Primary Impression: Chest pain Disposition: 07 AGAINST MEDICAL ADVICE Referrals: NO PCP (PCP) KIM ALCOCER MD Oct 20, 2017 03:22
[2017-10-20] MEDS ORDERED: ONDANSETRON ODT 4 MG TAB.RAPDIS. ONE (03:40)
[2017-10-20] MEDS ORDERED: fentaNYL PF VIAL 100 MCG/2 ML VIAL IV PRN (03:45)
[2017-10-20] MEDS ORDERED: ONDANSETRON PF 4 MG/2 ML VIAL. IV ONE (03:45)
[2017-10-20 03:57] VITALS: BP 127/64
[2017-10-20] MEDS ORDERED: ONDANSETRON ODT 4 MG TAB.RAPDIS. PO ONE (04:00)
--- NOTE | 2017-10-20 06:22 | EKG ---
[facility] [address] [place] [address] Test Date: 2017-10-20 Test Time: 03:15:21 Pat Name: TRACIE GAONA Department: Room: Gender: F Automotive Service Consultant: : 1975 Requested By: KIM ALCOCER Order Number: [id number] Reading MD: Mauricio Shafer MD Measurements Intervals [place] Rate: 79 P: 37 [place]: 146 QRS: -9 QRSD: 108 T: 24 QT: 382 QTc: 444 Interpretive Statements SR RBBB Electronically Signed On 10-27-2017 12:04:39 CORK PRESSING MACHINE OPERATOR by Mauricio Shafer MD
--- NOTE | 2017-10-20 07:16 | RAD ---
Portable chest, 10/20/2017: History: Chest pain, shortness of breath Comparison is made to a study from 08/05/2017. The heart is within normal limits in size. The pulmonary vascularity is normal. There is minimal linear atelectasis in the right base. No pulmonary consolidation is seen. There is no evidence of pleural fluid. IMPRESSION: Minimal right basilar linear atelectasis.
== END 2017-10-20 04:07 | disposition left against medical advice (07) ==
LOC: ER 03:07
DX: R07.2 Precordial pain (principal); R06.02 Shortness of breath; M32.9 Systemic lupus erythematosus, unspecified; E78.00 Pure hypercholesterolemia, unspecified; I11.0 Hypertensive heart disease with heart failure; I50.9 Heart failure, unspecified; J44.9 Chronic obstructive pulmonary disease, unspecified; Z86.711 Personal history of pulmonary embolism; Z87.442 Personal history of urinary calculi; I25.2 Old myocardial infarction; Z86.718 Personal history of other venous thrombosis and embolism; Z87.440 Personal history of urinary (tract) infections; Z90.49 Acquired absence of other specified parts of digestive tract; Z90.710 Acquired absence of both cervix and uterus; Z88.0 Allergy status to penicillin; Z88.2 Allergy status to sulfonamides; Z88.1 Allergy status to other antibiotic agents; Z88.8 Allergy status to other drugs, medicaments and biological substances; Z88.4 Allergy status to anesthetic agent; Z91.041 Radiographic dye allergy status
CPT/HCPCS: 71010; 93005; 99284; Q0162; 99285-25

== ENCOUNTER 2017-10-23 16:29 | Emergency (ER) | payer OTHER ==
[~2017-10-23] VITALS: Ht 172.7 cm; Wt 129.3 kg
[2017-10-23 17:48] LABS: BASO # 0.1 x10^3/uL (0.0-0.2); BASO % 1 % (0-3); EOS % 6 % (0-3); HEMATOCRIT 34.3 % (36.0-47.0); HEMOGLOBIN 11.2 g/dL (12.0-15.5); LYMPH # 2.8 x10^3/uL (1.0-4.8); LYMPH % 23 % (24-48); MEAN CORPUSCULAR HEMOGLOBIN 30 pg (25-35); MEAN CORPUSCULAR HGB CONC 33 g/dL (31-37); MEAN CORPUSCULAR VOLUME 91 fL (79-100); MONO % 6 % (0-9); NEUT % 65 % (31-73); PLATELET COUNT 472 x10^3/uL (140-400); RED BLOOD COUNT 3.76 x10^6/uL (3.50-5.40); RED CELL DISTRIBUTION WIDTH 14.8 % (11.5-14.5); WHITE BLOOD COUNT 12.1 x10^3/uL (4.0-11.0)
[2017-10-23 17:54] LABS: BILIRUBIN,URINE NEGATIVE (NEG); GLUCOSE,URINE NEGATIVE (NEG); NITRITE,URINE NEGATIVE (NEG); PROTEIN,URINE NEGATIVE (NEG-TRACE); UROBILINOGEN,URINE 0.2 mg/dL (0.2 mg/dL)
[2017-10-23 17:59] LABS: BARBITURATES NEG (NEG); BENZODIAZEPINES POS (NEG); CANNABINOIDS NEG (NEG); COCAINE NEG (NEG); METHADONE NEG (NEG); OPIATES NEG (NEG); PHENCYCLIDINE NEG (NEG)
[2017-10-23] MEDS ORDERED: ONDANSETRON PF 4 MG/2 ML VIAL. IV ONE (18:00)
[2017-10-23] MEDS ORDERED: IV NORMAL SALINE 1000ML BAG 1,000 ML IV ONE (18:00)
[2017-10-23] MEDS ORDERED: fentaNYL PF VIAL 100 MCG/2 ML VIAL IV ONE (18:00)
[2017-10-23 18:02] LABS: CALCIUM 8.5 mg/dL (8.5-10.1); CREATININE 0.7 mg/dL (0.6-1.0); GFR 91.8; POTASSIUM 3.7 mmol/L (3.5-5.1)
[2017-10-23 18:07] LABS: ALBUMIN 3.7 g/dL (3.4-5.0); ALBUMIN/GLOBULIN RATIO 0.9 (1.0-1.7); TOTAL BILIRUBIN 0.2 mg/dL (0.2-1.0); TOTAL PROTEIN 7.7 g/dL (6.4-8.2)
[2017-10-23 18:09] LABS: BACTERIA,URINE MODERATE /HPF (0-FEW); RBC,URINE 0 /HPF (0-2); SQUAMOUS EPITHELIAL CELL,UR MOD /LPF
[2017-10-23 18:10] LABS: PROTHROMBIN TIME PATIENT 12.7 SEC (11.7-14.0)
[2017-10-23 18:39] VITALS: BP 94/69
--- NOTE | 2017-10-23 18:52 | PHYS DOC ---
Past Medical History Past Medical History: CHF, COPD, DVT, High Cholesterol, Hypertension, Kidney Stone, [place], P.U.D., UTI, Other Additional Past Medical Histor: Pulmonary Embolism, Lupus, Bleeding Gastric Ulcers Past Surgical History: Cholecystectomy, , Hysterectomy, Other Additional Past Surgical Histo: IVC filter placed and removed Additional Information: 1 PPD Alcohol Use: Occasionally Drug Use: None Adult General Chief Complaint Chief Complaint: ABDOMINAL PAIN HPI HPI Patient is a 42 year old F who presents with epigastric pain and coffee-ground emesis. Patient states she has a history of ulcers that are bleeding. Patient denies any heavy alcohol use or any illicit drug use. Patient is currently not on any anticoagulant medication. Patient states that for the past day she's had increasing epigastric pain with nausea and vomiting. As the vomiting has progressed is becoming coffee-ground in color. Patient denies any lightheaded dizziness. Patient denies any chest pain or shortness of breath or diarrhea. Patient has no other complaints. Review of Systems Review of Systems GEN: Denies fevers, chills, sweats HEENT: Denies blurred vision, sore throat CV: Denies chest pain RESP: Denies shortness of air, cough GI: Epigastric pain with nausea and vomiting NEURO: Denies confusion, dizziness MSK: Denies weakness, joint pain/swelling All other systems were reviewed and found to be within normal limits, except as documented in this note. Current Medications Current Medications Current Medications Medications (Trade) Dose Ordered Sig/Tex Start Time Stop Time Status Last Admin Dose Admin Fentanyl Citrate (Fentanyl 2ml Vial) 50 mcg 1X ONCE 10/23/17 18:00 10/23/17 18:01 DC 10/23/17 17:51 50 MCG Ondansetron HCl (Zofran) 4 mg 1X ONCE 10/23/17 18:00 10/23/17 18:01 DC 10/23/17 17:50 4 MG Pantoprazole Sodium (PROTONIX VIAL for IV PUSH) 40 mg 1X ONCE 10/23/17 19:00 10/23/17 19:01 DC Sodium Chloride 1,000 ml @ 1,000 mls/hr 1X ONCE 10/23/17 18:00 10/23/17 18:59 DC 10/23/17 17:51 1,000 MLS/HR Allergies Allergies Allergies Coded Allergies Type Severity Reaction Last Updated Verified Cephalexin Monohydrate Allergy Intermediate 06/30/17 Yes NSAIDS (Non-Steroidal Anti-Inflamma Allergy Intermediate 09/27/17 Yes Penicillins Allergy Intermediate 06/30/17 Yes iodine Allergy Intermediate 06/30/17 Yes lidocaine Allergy Intermediate 06/30/17 Yes prochlorperazine edisylate Allergy Intermediate 06/30/17 Yes prochlorperazine maleate Allergy Intermediate 06/30/17 Yes sulfamethoxazole Allergy Intermediate 06/30/17 Yes trimethoprim Allergy Intermediate 06/30/17 Yes Physical Exam Physical Exam GEN.: Moderate distress. Alert and oriented. HEENT: Head is normocephalic, atraumatic NECK: Supple. LUNGS: CTAB. HEART: RRR, S1, S2 present. Peripheral pulses intact ABDOMEN: Soft, tenderness palpation of the epigastric region, rebound tenderness, no abdominal distention, no guarding. Positive bowel sounds. EXTREMITIES: Without any cyanosis. NEUROLOGIC: Normal speech, normal tone PSYCHIATRIC: Normal affect, normal mood. SKIN: No ulcerations Current Patient Data Vital Signs Vital Signs Date Time Temp Pulse Resp B/P (MAP) Pulse Ox O2 Delivery O2 Flow Rate FiO2 10/23/17 18:42 91 Room Air 10/23/17 18:21 22 10/23/17 16:42 97.8 97 127/71 (89) 97.8 Lab Values Laboratory Tests Test 10/23/17 16:40 10/23/17 17:41 Urine Collection Type Unknown Urine Color Yellow Urine Clarity Clear Urine pH 6.0 Urine Specific [place] 1.025 Urine Protein Negative mg/dL (NEG-TRACE) Urine Glucose (UA) Negative mg/dL (NEG) Urine Ketones (Stick) Negative mg/dL (NEG) Urine Blood Negative (NEG) Urine Nitrite Negative (NEG) Urine Bilirubin Negative (NEG) Urine Urobilinogen Dipstick 0.2 mg/dL (0.2 mg/dL) Urine Leukocyte Esterase Negative (NEG) Urine RBC 0 /HPF (0-2) Urine WBC 1-4 /HPF (0-4) Urine Squamous Epithelial Cells Mod /LPF Urine Bacteria Moderate /HPF (0-FEW) Urine Mucus Mod /LPF Urine Opiates Screen Neg (NEG) Urine Methadone Screen Neg (NEG) Urine Barbiturates Neg (NEG) Urine Phencyclidine Screen Neg (NEG) Urine Amphetamine/Methamphetamine Neg (NEG) Urine Benzodiazepines Screen Pos (NEG) Urine Cocaine Screen Neg (NEG) Urine Cannabinoids Screen Neg (NEG) Urine Ethyl Alcohol Neg (NEG) White Blood Count 12.1 x10^3/uL (4.0-11.0) H Red Blood Count 3.76 x10^6/uL (3.50-5.40) Hemoglobin 11.2 g/dL (12.0-15.5) L Hematocrit 34.3 % (36.0-47.0) L Mean Corpuscular Volume 91 fL (79-100) Mean Corpuscular Hemoglobin 30 pg (25-35) Mean Corpuscular Hemoglobin Concent 33 g/dL (31-37) Red Cell Distribution Width 14.8 % (11.5-14.5) H Platelet Count 472 x10^3/uL (140-400) H Neutrophils (%) (Auto) 65 % (31-73) Lymphocytes (%) (Auto) 23 % (24-48) L Monocytes (%) (Auto) 6 % (0-9) Eosinophils (%) (Auto) 6 % (0-3) H Basophils (%) (Auto) 1 % (0-3) Neutrophils # (Auto) 7.8 x10^3uL (1.8-7.7) H Lymphocytes # (Auto) 2.8 x10^3/uL (1.0-4.8) Monocytes # (Auto) 0.7 x10^3/uL (0.0-1.1) Eosinophils # (Auto) 0.7 x10^3/uL (0.0-0.7) Basophils # (Auto) 0.1 x10^3/uL (0.0-0.2) Prothrombin Time 12.7 SEC (11.7-14.0) Prothrombin Time INR 1.0 (0.8-1.1) Sodium Level 142 mmol/L (136-145) Potassium Level 3.7 mmol/L (3.5-5.1) Chloride Level 105 mmol/L (98-107) Carbon Dioxide Level 22 mmol/L (21-32) Anion Gap 15 (6-14) H Blood Urea Nitrogen 10 mg/dL (7-20) Creatinine 0.7 mg/dL (0.6-1.0) Estimated GFR (Cockcroft-Gault) 91.8 BUN/Creatinine Ratio 14 (6-20) Glucose Level 91 mg/dL (70-99) Calcium Level 8.5 mg/dL (8.5-10.1) Total Bilirubin 0.2 mg/dL (0.2-1.0) Aspartate Amino Transferase (AST) 11 U/L (15-37) L Alanine Aminotransferase (ALT) 13 U/L (14-59) L Alkaline Phosphatase 79 U/L (46-116) Total Protein 7.7 g/dL (6.4-8.2) Albumin 3.7 g/dL (3.4-5.0) Albumin/Globulin Ratio 0.9 (1.0-1.7) L Lipase 64 U/L (73-393) L Ethyl Alcohol Level < 10 mg/dL (0-10) Laboratory Tests 10/23/17 17:41 Laboratory Tests 10/23/17 17:41 EKG EKG [] Radiology/Procedures Radiology/Procedures [] Course & Med Decision Making Course & Med Decision Making Pertinent Labs and Imaging studies reviewed. (See chart for details) ED course: Patient was seen and examined emergency room abdominal workup was ordered along with a CT scan abdomen pelvis Patient was given 50 g of fentanyl for abdominal pain Pt still having persistent abdominal pain therefore 40 mg Protonix was ordered Patient refuses a Protonix therefore alternative treatments were provided to the patient a chest Pepcid 20 mg IV with a GI cocktail Patient refused all medication and was requesting Dilaudid Patient wanted to leave AGAINST MEDICAL ADVICE, offered patient many alternative treatments to her epigastric pain however the patient felt narcotics were the only thing that would treat her pain and decided to leave AGAINST MEDICAL ADVICE understanding all risks including and disability MDM: After reviewing the chart, CC/HPI/PMH, physical exam, [lab results], [ radiological results], I believe the patient has an acute upper GI bleeding most likely from a bleeding ulcer and felt the patient needed to be admitted the hospital for further evaluation and management however the patient only wanted narcotic pain medication and declined all other offers of antiulcer medication. Patient decided to leave AGAINST MEDICAL ADVICE despite my best efforts to provide her alternative treatments for her pain. Patient understands all risks including and disability leaving. Additional verbal discharge instructions were provided to the patient and that if symptoms get worse or any new symptoms arise that are worrisome to the patient she is to return to the emergency room immediately [] Dragon Disclaimer Dragon Disclaimer This electronic medical record was generated, in whole or in part, using a voice recognition dictation system. Departure Departure Impression: Primary Impression: Left against medical advice Additional Impressions: Abdominal pain Upper GI bleed Disposition: 07 AGAINST MEDICAL ADVICE Condition: STABLE Referrals: NO PCP (PCP) Patient Instructions: Peptic Ulcer Disease Additional Instructions: You are leaving AGAINST MEDICAL ADVICE however your morning woke up and return at any time if her symptoms get worse Problem Qualifiers MICHEL STEIN DO Oct 23, 2017 18:52
[2017-10-23] MEDS ORDERED: PANTOPRAZOLE IV PUSH 40 MG VIAL. IVP ONE (19:00)
--- NOTE | 2017-10-23 20:05 | RAD ---
Abdominal and Pelvis CT, Without Contrast: History: Upper GI bleed . Comparison: September 27, 2017. Procedure: Axial images are obtained of the abdomen and pelvis, without IV or oral contrast. CT Abdomen without Contrast: Findings: Evaluation of solid organs is limited without contrast. Evaluation of stomach and bowel is limited without oral contrast. Liver: Normal. Spleen: Normal. Pancreas: Normal. Adrenal Glands: Normal. Kidneys: Normal. There is no free air or free fluid. There is no lymphadenopathy. There is an IVC filter in place. There has been prior cholecystectomy. Impression: Please see CT Pelvis without Contrast. End Impression. CT Pelvis without Contrast: Findings: The urinary bladder partially collapsed and not well evaluated. There is no free fluid. There is no lymphadenopathy. There is no pericolonic inflammation identified. There is there is stool scattered throughout the colon. Impression: Constipation. End impression PQRS Compliance Statement: One or more of the following individualized dose reduction techniques were utilized for this examination: 1. Automated exposure control 2. Adjustment of the mA and/or kV according to patient size 3. Use of iterative reconstruction technique Electronically signed by: Barrett Burrows III, MD (10/23/2017 8:02 PM) [facility]
== END 2017-10-23 19:10 | disposition left against medical advice (07) ==
LOC: ER 16:29
DX: K92.2 Gastrointestinal hemorrhage, unspecified (principal); I11.0 Hypertensive heart disease with heart failure; I50.9 Heart failure, unspecified; J44.9 Chronic obstructive pulmonary disease, unspecified; E78.00 Pure hypercholesterolemia, unspecified; I25.2 Old myocardial infarction; M32.9 Systemic lupus erythematosus, unspecified; F17.200 Nicotine dependence, unspecified, uncomplicated; Z86.711 Personal history of pulmonary embolism; Z87.442 Personal history of urinary calculi; Z88.0 Allergy status to penicillin; Z90.49 Acquired absence of other specified parts of digestive tract; Z90.710 Acquired absence of both cervix and uterus; Z87.440 Personal history of urinary (tract) infections; Z86.718 Personal history of other venous thrombosis and embolism; Z95.828 Presence of other vascular implants and grafts; Z87.19 Personal history of other diseases of the digestive system; Z88.1 Allergy status to other antibiotic agents; Z88.6 Allergy status to analgesic agent; Z88.4 Allergy status to anesthetic agent; Z91.041 Radiographic dye allergy status; Z88.2 Allergy status to sulfonamides; Z88.8 Allergy status to other drugs, medicaments and biological substances
CPT/HCPCS: 36415; 74176; 80053; 80307; 80320; 81001; 83690; 85025; 85610; 87086; 96361; 96374; 96375; 99285; J2405; J3010; J7030; G0480; G0479

== ENCOUNTER 2017-10-24 16:39 | Emergency (ER) | payer OTHER ==
[~2017-10-24] VITALS: Ht 172.7 cm; Wt 129.3 kg
[2017-10-24 17:43] VITALS: BP 93/52
[2017-10-24 17:53] LABS: BILIRUBIN,URINE NEGATIVE (NEG); GLUCOSE,URINE NEGATIVE (NEG); NITRITE,URINE NEGATIVE (NEG); PROTEIN,URINE NEGATIVE (NEG-TRACE); UROBILINOGEN,URINE 0.2 mg/dL (0.2 mg/dL)
[2017-10-24 18:10] LABS: BACTERIA,URINE MODERATE /HPF (0-FEW); RBC,URINE 0 /HPF (0-2); SQUAMOUS EPITHELIAL CELL,UR FEW /LPF
[2017-10-24] MEDS ORDERED: HALOPERIDOL LACTATE 5 MG/ML VIAL. IVP ONE (18:15)
--- NOTE | 2017-10-24 18:33 | PHYS DOC ---
Past Medical History Past Medical History: CHF, COPD, DVT, High Cholesterol, Hypertension, Kidney Stone, [place], P.U.D., UTI, Other Additional Past Medical Histor: Pulmonary Embolism, Lupus, Bleeding Gastric Ulcers Past Surgical History: Cholecystectomy, , Hysterectomy, Other Additional Past Surgical Histo: IVC filter placed and removed Additional Information: 1 PPD Alcohol Use: Occasionally Drug Use: None Adult General Chief Complaint Chief Complaint: ABDOMINAL PAIN HPI HPI Patient is a 42 year old F who presents with abdominal pain for the past couple days. Patient was seen yesterday in the emergency room by myself and she left AMA because I would not give her more narcotic pain medication. Patient left prior to obtaining her CT of the abdomen pelvis results. Yesterday patient stated she was upper GI bleeding however today she states she's is has generalized abdominal tenderness. Patient denied any nausea or vomiting today. Patient denied any chest pain or shortness of breath. Patient denies any fevers. Patient denies any diarrhea or constipation. Patient denies any dysuria. Review of Systems Review of Systems GEN: Denies fevers, chills, sweats HEENT: Denies blurred vision, sore throat CV: Denies chest pain RESP: Denies shortness of air, cough GI: Abdominal pain NEURO: Denies confusion, dizziness MSK: Denies weakness, joint pain/swelling All other systems were reviewed and found to be within normal limits, except as documented in this note. Current Medications Current Medications Current Medications Medications (Trade) Dose Ordered Sig/Tex Start Time Stop Time Status Last Admin Dose Admin Haloperidol Lactate (Haldol) 5 mg 1X ONCE 10/24/17 18:15 10/24/17 18:16 DC Allergies Allergies Allergies Coded Allergies Type Severity Reaction Last Updated Verified Cephalexin Monohydrate Allergy Intermediate 06/30/17 Yes NSAIDS (Non-Steroidal Anti-Inflamma Allergy Intermediate 09/27/17 Yes Penicillins Allergy Intermediate 06/30/17 Yes iodine Allergy Intermediate 06/30/17 Yes lidocaine Allergy Intermediate 06/30/17 Yes prochlorperazine edisylate Allergy Intermediate 06/30/17 Yes prochlorperazine maleate Allergy Intermediate 06/30/17 Yes sulfamethoxazole Allergy Intermediate 06/30/17 Yes trimethoprim Allergy Intermediate 06/30/17 Yes Physical Exam Physical Exam GEN.: Mild distress. Alert and oriented. HEENT: Head is normocephalic, atraumatic NECK: Supple. LUNGS: CTAB. HEART: RRR, S1, S2 present. Peripheral pulses intact ABDOMEN: Soft, mild generalized tenderness to palpation, no rebound tenderness, no guarding, no abdominal distention. Positive bowel sounds. EXTREMITIES: Without any cyanosis. NEUROLOGIC: Normal speech, normal tone PSYCHIATRIC: Normal affect, normal mood. SKIN: No ulcerations Current Patient Data Vital Signs Vital Signs Date Time Temp Pulse Resp B/P (MAP) Pulse Ox O2 Delivery O2 Flow Rate FiO2 10/24/17 17:43 98.2 92 20 93/52 (66) 95 Room Air 98.2 Lab Values Laboratory Tests Test 10/24/17 17:30 Urine Collection Type Unknown Urine Color Yellow Urine Clarity Clear Urine pH 6.0 Urine Specific [place] >=1.030 Urine Protein Negative mg/dL (NEG-TRACE) Urine Glucose (UA) Negative mg/dL (NEG) Urine Ketones (Stick) Negative mg/dL (NEG) Urine Blood Negative (NEG) Urine Nitrite Negative (NEG) Urine Bilirubin Negative (NEG) Urine Urobilinogen Dipstick 0.2 mg/dL (0.2 mg/dL) Urine Leukocyte Esterase Negative (NEG) Urine RBC 0 /HPF (0-2) Urine WBC 1-4 /HPF (0-4) Urine Squamous Epithelial Cells Few /LPF Urine Bacteria Moderate /HPF (0-FEW) Urine Mucus Mod /LPF EKG EKG [] Radiology/Procedures Radiology/Procedures [] Course & Med Decision Making Course & Med Decision Making Pertinent Labs and Imaging studies reviewed. (See chart for details) ED course: Patient was seen and examined emergency room abdominal workup was ordered along with for Motrin and Zofran and 5 monos of Haldol I updated the patient on her CT results from last night which were unremarkable for the abdomen pelvis. Explained to the patient that she is displaying drug- seeking behavior by requesting more narcotic medication and would not receiving it leaving AGAINST MEDICAL ADVICE. Explained to the patient I would be more happy to treat her abdominal pain with some nonnarcotic pain medication and also stated that her abdominal pain may be related to narcotic withdrawal. Explained to the patient that I will treat her nausea with for Motrin and Zofran and her abdominal pain with 5 modems of Haldol. 1814: The nurse went back into the room to evaluate the patient and start a line and give medications and the patient was not in the room. Security from the patient outside emergency room, when confronted has an emergent patient states she is leaving. Patient eloped. [] Dragon Disclaimer Dragon Disclaimer This electronic medical record was generated, in whole or in part, using a voice recognition dictation system. Departure Departure Impression: Primary Impression: Abdominal pain Additional Impression: Drug-seeking behavior Disposition: 07 AGAINST MEDICAL ADVICE (patient actually eloped) Condition: STABLE Referrals: NO PCP (PCP) Patient Instructions: Abdominal Pain (Nonspecific) Additional Instructions: You have eloped from the emergency room, at your convenience if symptoms increase or get worse. Problem Qualifiers MICHEL STEIN DO Oct 24, 2017 18:33
== END 2017-10-24 18:12 | disposition left against medical advice (07) ==
LOC: ER 16:39
DX: R10.84 Generalized abdominal pain (principal); I11.0 Hypertensive heart disease with heart failure; I50.9 Heart failure, unspecified; J44.9 Chronic obstructive pulmonary disease, unspecified; E78.00 Pure hypercholesterolemia, unspecified; F17.200 Nicotine dependence, unspecified, uncomplicated; M32.9 Systemic lupus erythematosus, unspecified; Z86.711 Personal history of pulmonary embolism; Z87.442 Personal history of urinary calculi; Z88.0 Allergy status to penicillin; Z88.2 Allergy status to sulfonamides; Z88.4 Allergy status to anesthetic agent; Z88.1 Allergy status to other antibiotic agents; Z88.8 Allergy status to other drugs, medicaments and biological substances; Z90.49 Acquired absence of other specified parts of digestive tract; Z90.710 Acquired absence of both cervix and uterus; Z87.19 Personal history of other diseases of the digestive system; Z88.6 Allergy status to analgesic agent; Z91.041 Radiographic dye allergy status; Z76.5 Malingerer [conscious simulation]
CPT/HCPCS: 81001; 87086; 99284

== ENCOUNTER 2017-11-19 03:38 | Emergency (ER) | payer OTHER ==
[2017-11-19] MEDS ORDERED: PANTOPRAZOLE IV PUSH 40 MG VIAL. IVP (04:15)
[2017-11-19] MEDS ORDERED: ONDANSETRON PF 4 MG/2 ML VIAL. IV (04:15)
[2017-11-19] MEDS ORDERED: IV NORMAL SALINE 1000ML BAG 1,000 ML IV (04:15)
== END 2017-11-19 03:53 | disposition left against medical advice (07) ==
LOC: ER 03:38
DX: R10.13 Epigastric pain (principal); R11.2 Nausea with vomiting, unspecified; K92.0 Hematemesis; I11.0 Hypertensive heart disease with heart failure; I50.9 Heart failure, unspecified; E78.00 Pure hypercholesterolemia, unspecified; J44.9 Chronic obstructive pulmonary disease, unspecified; Z86.711 Personal history of pulmonary embolism; M32.9 Systemic lupus erythematosus, unspecified; Z87.442 Personal history of urinary calculi; I25.2 Old myocardial infarction; Z86.718 Personal history of other venous thrombosis and embolism; Z90.710 Acquired absence of both cervix and uterus; Z90.49 Acquired absence of other specified parts of digestive tract; Z88.1 Allergy status to other antibiotic agents; Z88.0 Allergy status to penicillin; Z88.2 Allergy status to sulfonamides; Z88.8 Allergy status to other drugs, medicaments and biological substances; Z88.4 Allergy status to anesthetic agent; Z91.041 Radiographic dye allergy status
CPT/HCPCS: 99281

== ENCOUNTER 2017-11-27 07:46 | Emergency (ER) | payer OTHER ==
[2017-11-27] MEDS ORDERED: ONDANSETRON PF 4 MG/2 ML VIAL. IV (08:15)
[2017-11-27] MEDS ORDERED: IV NORMAL SALINE 1000ML BAG 1,000 ML IV (08:15)
[2017-11-27] MEDS ORDERED: FAMOTIDINE 20 MG/2 ML VIAL IVP (08:15)
== END 2017-11-27 08:15 | disposition left against medical advice (07) ==
LOC: ER 07:46
DX: Z76.5 Malingerer [conscious simulation] (principal); R10.84 Generalized abdominal pain; E78.00 Pure hypercholesterolemia, unspecified; I11.0 Hypertensive heart disease with heart failure; I50.9 Heart failure, unspecified; J44.9 Chronic obstructive pulmonary disease, unspecified; M32.9 Systemic lupus erythematosus, unspecified; F17.200 Nicotine dependence, unspecified, uncomplicated; Z86.711 Personal history of pulmonary embolism; Z87.442 Personal history of urinary calculi; Z91.041 Radiographic dye allergy status; Z86.718 Personal history of other venous thrombosis and embolism; I25.2 Old myocardial infarction; Z90.49 Acquired absence of other specified parts of digestive tract; Z90.710 Acquired absence of both cervix and uterus; Z87.440 Personal history of urinary (tract) infections; Z88.0 Allergy status to penicillin; Z88.2 Allergy status to sulfonamides; Z88.1 Allergy status to other antibiotic agents; Z88.4 Allergy status to anesthetic agent; Z88.8 Allergy status to other drugs, medicaments and biological substances
CPT/HCPCS: 99281

== ENCOUNTER 2017-12-23 14:01 | Emergency (ER) | payer OTHER | END 2017-12-23 14:31 | disposition left against medical advice (07) | LOC: ER 14:01 | DX: R07.9 Chest pain, unspecified (principal); I11.0 Hypertensive heart disease with heart failure; J44.9 Chronic obstructive pulmonary disease, unspecified; I50.9 Heart failure, unspecified; E78.00 Pure hypercholesterolemia, unspecified; Z88.0 Allergy status to penicillin; Z76.5 Malingerer [conscious simulation]; Z88.2 Allergy status to sulfonamides; Z86.711 Personal history of pulmonary embolism; Z90.49 Acquired absence of other specified parts of digestive tract; Z90.710 Acquired absence of both cervix and uterus; Z88.8 Allergy status to other drugs, medicaments and biological substances; Z88.6 Allergy status to analgesic agent; Z88.1 Allergy status to other antibiotic agents; Z91.041 Radiographic dye allergy status | CPT/HCPCS: 93005; 99283-25 ==

== ENCOUNTER 2018-01-13 09:54 | Emergency (ER) | payer OTHER ==
[2018-01-13] MEDS: ONDANSETRON PF 4 MG/2 ML VIAL. IV (10:49)
[2018-01-13] MEDS: IV NORMAL SALINE 500ML BAG 500 ML IV (10:50)
[2018-01-13] MEDS: fentaNYL PF VIAL 100 MCG/2 ML VIAL IV (10:50)
[2018-01-13 10:57] LABS: ADD MAN DIFF? NO
[2018-01-13 11:23] LABS: ANION GAP 15 (6-14); BASO % 1 % (0-3); BLOOD UREA NITROGEN 11 mg/dL (7-20); BUN/CREATININE RATIO 12 (6-20); CALCIUM 9.6 mg/dL (8.5-10.1); CARBON DIOXIDE 22 mmol/L (21-32); CHLORIDE 106 mmol/L (98-107); CREATININE 0.9 mg/dL (0.6-1.0); EOS # 0.3 x10^3/uL (0.0-0.7); EOS % 4 % (0-3); GFR 68.7; GLUCOSE 96 mg/dL (70-99); HEMATOCRIT 37.3 % (36.0-47.0); HEMOGLOBIN 12.3 g/dL (12.0-15.5); LYMPH % 24 % (24-48); MEAN CORPUSCULAR HEMOGLOBIN 30 pg (25-35); MEAN CORPUSCULAR HGB CONC 33 g/dL (31-37); MEAN CORPUSCULAR VOLUME 90 fL (79-100); MONO # 0.6 x10^3/uL (0.0-1.1); MONO % 7 % (0-9); NEUT # 5.4 x10^3uL (1.8-7.7); NEUT % 65 % (31-73); PLATELET COUNT 504 x10^3/uL (140-400); POTASSIUM 3.6 mmol/L (3.5-5.1); RED BLOOD COUNT 4.16 x10^6/uL (3.50-5.40); RED CELL DISTRIBUTION WIDTH 15.7 % (11.5-14.5); SODIUM 143 mmol/L (136-145); WHITE BLOOD COUNT 8.4 x10^3/uL (4.0-11.0)
[2018-01-13 11:41] LABS: ALBUMIN 3.8 g/dL (3.4-5.0); ALBUMIN/GLOBULIN RATIO 0.8 (1.0-1.7); ALK PHOS 92 U/L (46-116); ALT (SGPT) 21 U/L (14-59); AST (SGOT) 10 U/L (15-37); TOTAL BILIRUBIN 0.3 mg/dL (0.2-1.0); TOTAL PROTEIN 8.4 g/dL (6.4-8.2)
[2018-01-13 11:44] LABS: INR 1.1 (0.8-1.1); PARTIAL THROMBOPLASTIN TIME 25 SEC (24-38); PROTHROMBIN TIME PATIENT 13.8 SEC (11.7-14.0)
[2018-01-13] MEDS: MORPHINE SULFATE 4 MG/ML DISP.SYRIN. IV (12:35)
[2018-01-13 12:49] LABS: FECAL OB PT NEGATIVE (NEG); NEG OBC FOB NEG; POS OBC FOB POS
== END 2018-01-13 12:44 | disposition home or self-care (01) ==
LOC: ER 09:54
DX: R10.13 Epigastric pain (principal); R11.2 Nausea with vomiting, unspecified; E78.00 Pure hypercholesterolemia, unspecified; I10 Essential (primary) hypertension; J44.9 Chronic obstructive pulmonary disease, unspecified; M32.9 Systemic lupus erythematosus, unspecified; Z86.718 Personal history of other venous thrombosis and embolism; Z90.49 Acquired absence of other specified parts of digestive tract; Z86.711 Personal history of pulmonary embolism; I25.2 Old myocardial infarction; Z90.710 Acquired absence of both cervix and uterus; Z98.890 Other specified postprocedural states; Z88.1 Allergy status to other antibiotic agents; Z88.0 Allergy status to penicillin; Z88.2 Allergy status to sulfonamides; Z88.8 Allergy status to other drugs, medicaments and biological substances; Z88.4 Allergy status to anesthetic agent; Z91.041 Radiographic dye allergy status
CPT/HCPCS: 36415; 80053; 82274; 85025; 85610; 85730; 93005; 96361; 96374; 96375; 99285-25; J2270; J2405; J3010; J7040

== ENCOUNTER 2018-01-15 16:09 | Emergency (ER) | payer OTHER | END 2018-01-15 17:02 | disposition left against medical advice (07) | LOC: ER 16:09 | DX: R10.13 Epigastric pain (principal); R11.2 Nausea with vomiting, unspecified; I11.0 Hypertensive heart disease with heart failure; I50.9 Heart failure, unspecified; J44.9 Chronic obstructive pulmonary disease, unspecified; E78.00 Pure hypercholesterolemia, unspecified; I25.2 Old myocardial infarction; M32.9 Systemic lupus erythematosus, unspecified; F17.200 Nicotine dependence, unspecified, uncomplicated; Z86.718 Personal history of other venous thrombosis and embolism; Z86.711 Personal history of pulmonary embolism; Z87.442 Personal history of urinary calculi; Z88.0 Allergy status to penicillin; Z88.2 Allergy status to sulfonamides; Z87.440 Personal history of urinary (tract) infections; Z90.49 Acquired absence of other specified parts of digestive tract; Z90.710 Acquired absence of both cervix and uterus; Z87.11 Personal history of peptic ulcer disease; Z88.1 Allergy status to other antibiotic agents; Z88.6 Allergy status to analgesic agent; Z91.041 Radiographic dye allergy status; Z88.8 Allergy status to other drugs, medicaments and biological substances | CPT/HCPCS: 99281 ==

== ENCOUNTER 2018-01-19 20:48 | Emergency (ER) | payer OTHER | END 2018-01-19 22:05 | disposition left against medical advice (07) | LOC: ER 20:48 | DX: R10.10 Upper abdominal pain, unspecified (principal); Z76.5 Malingerer [conscious simulation]; E78.00 Pure hypercholesterolemia, unspecified; I11.0 Hypertensive heart disease with heart failure; I50.9 Heart failure, unspecified; I25.2 Old myocardial infarction; Z87.442 Personal history of urinary calculi; Z86.711 Personal history of pulmonary embolism; Z90.49 Acquired absence of other specified parts of digestive tract; Z90.710 Acquired absence of both cervix and uterus; Z98.890 Other specified postprocedural states; Z88.1 Allergy status to other antibiotic agents; Z88.0 Allergy status to penicillin; Z88.4 Allergy status to anesthetic agent; Z88.2 Allergy status to sulfonamides; Z88.6 Allergy status to analgesic agent; Z88.8 Allergy status to other drugs, medicaments and biological substances; Z91.041 Radiographic dye allergy status | CPT/HCPCS: 99281 ==

== ENCOUNTER 2018-01-21 12:12 | Emergency (ER) | payer OTHER | END 2018-01-21 12:34 | disposition home or self-care (01) | LOC: ER 12:12 | DX: M54.9 Dorsalgia, unspecified (principal); R10.9 Unspecified abdominal pain; R31.9 Hematuria, unspecified; R11.0 Nausea; R30.0 Dysuria; I11.0 Hypertensive heart disease with heart failure; I50.9 Heart failure, unspecified; J44.9 Chronic obstructive pulmonary disease, unspecified; E78.00 Pure hypercholesterolemia, unspecified; M32.9 Systemic lupus erythematosus, unspecified; I25.2 Old myocardial infarction; Z86.711 Personal history of pulmonary embolism; Z86.718 Personal history of other venous thrombosis and embolism; Z87.440 Personal history of urinary (tract) infections; Z90.49 Acquired absence of other specified parts of digestive tract; Z90.710 Acquired absence of both cervix and uterus; Z87.442 Personal history of urinary calculi; Z88.0 Allergy status to penicillin; Z88.2 Allergy status to sulfonamides; Z76.5 Malingerer [conscious simulation]; Z88.1 Allergy status to other antibiotic agents; Z88.6 Allergy status to analgesic agent; Z91.041 Radiographic dye allergy status; Z88.8 Allergy status to other drugs, medicaments and biological substances | CPT/HCPCS: 99281 ==

== ENCOUNTER 2018-01-25 15:09 | Emergency (ER) | payer OTHER | END 2018-01-25 17:00 | disposition left against medical advice (07) | LOC: ER 15:09 | DX: R07.89 Other chest pain (principal); Z76.5 Malingerer [conscious simulation]; E78.00 Pure hypercholesterolemia, unspecified; I11.0 Hypertensive heart disease with heart failure; I50.9 Heart failure, unspecified; I25.2 Old myocardial infarction; J44.9 Chronic obstructive pulmonary disease, unspecified; M32.9 Systemic lupus erythematosus, unspecified; Z86.711 Personal history of pulmonary embolism; Z87.442 Personal history of urinary calculi; Z88.0 Allergy status to penicillin; Z88.2 Allergy status to sulfonamides; Z88.1 Allergy status to other antibiotic agents; Z88.8 Allergy status to other drugs, medicaments and biological substances; Z91.041 Radiographic dye allergy status | CPT/HCPCS: 93005; 99283 ==

== ENCOUNTER 2018-02-14 13:10 | Emergency (ER) | payer OTHER ==
[2018-02-14] MEDS: ONDANSETRON ODT 4 MG TAB.RAPDIS. PO (14:01)
[2018-02-14] MEDS: LORazepam 1 MG TABLET PO (14:01)
[2018-02-14] MEDS: DICYCLOMINE 20 MG/2 ML AMPUL. IM (14:03)
[2018-02-14 14:08] LABS: ADD MAN DIFF? NO
[2018-02-14 14:10] LABS: BASO # 0.1 x10^3/uL (0.0-0.2); BASO % 2 % (0-3); EOS # 0.2 x10^3/uL (0.0-0.7); EOS % 3 % (0-3); HEMATOCRIT 34.2 % (36.0-47.0); HEMOGLOBIN 11.5 g/dL (12.0-15.5); LYMPH # 2.4 x10^3/uL (1.0-4.8); LYMPH % 31 % (24-48); MEAN CORPUSCULAR HEMOGLOBIN 30 pg (25-35); MEAN CORPUSCULAR HGB CONC 34 g/dL (31-37); MEAN CORPUSCULAR VOLUME 90 fL (79-100); MONO # 0.6 x10^3/uL (0.0-1.1); MONO % 7 % (0-9); NEUT # 4.5 x10^3uL (1.8-7.7); NEUT % 57 % (31-73); PLATELET COUNT 418 x10^3/uL (140-400); RED BLOOD COUNT 3.82 x10^6/uL (3.50-5.40); RED CELL DISTRIBUTION WIDTH 15.3 % (11.5-14.5); WHITE BLOOD COUNT 7.9 x10^3/uL (4.0-11.0)
[2018-02-14 14:21] LABS: BILIRUBIN,URINE NEGATIVE (NEG); CLARITY,URINE CLEAR; COLOR,URINE YELLOW; GLUCOSE,URINE NEGATIVE (NEG); NITRITE,URINE NEGATIVE (NEG); PROTEIN,URINE NEGATIVE (NEG-TRACE); UROBILINOGEN,URINE 0.2 mg/dL (0.2 mg/dL)
[2018-02-14 14:25] LABS: ANION GAP 17 (6-14); BLOOD UREA NITROGEN 11 mg/dL (7-20); CALCIUM 9.1 mg/dL (8.5-10.1); CARBON DIOXIDE 19 mmol/L (21-32); CHLORIDE 106 mmol/L (98-107); CREATININE 0.7 mg/dL (0.6-1.0); GFR 91.8; GLUCOSE 92 mg/dL (70-99); POTASSIUM 3.4 mmol/L (3.5-5.1); SODIUM 142 mmol/L (136-145)
[2018-02-14 14:29] LABS: BACTERIA,URINE FEW /HPF (0-FEW); RBC,URINE 0 /HPF (0-2); SQUAMOUS EPITHELIAL CELL,UR MOD /LPF; WBC,URINE OCC /HPF (0-4)
[2018-02-14 14:30] LABS: ALBUMIN 3.6 g/dL (3.4-5.0); ALK PHOS 96 U/L (46-116); ALT (SGPT) 24 U/L (14-59); AST (SGOT) 12 U/L (15-37); DIRECT BILIRUBIN < 0.1 mg/dL (0.0-0.2); LIPASE 83 U/L (73-393); TOTAL BILIRUBIN 0.2 mg/dL (0.2-1.0); TOTAL PROTEIN 7.1 g/dL (6.4-8.2)
[2018-02-14 14:33] LABS: TROPONINI < 0.017 ng/mL (0.000-0.055)
[2018-02-14 14:40] LABS: CKMB MASS < 0.5 ng/mL (0.0-3.6); CREATINE KINASE 58 U/L (26-192)
== END 2018-02-14 14:15 | disposition left against medical advice (07) ==
LOC: ER 14:15
DX: Z76.5 Malingerer [conscious simulation] (principal); I11.0 Hypertensive heart disease with heart failure; I50.9 Heart failure, unspecified; J44.9 Chronic obstructive pulmonary disease, unspecified; E78.00 Pure hypercholesterolemia, unspecified; M32.9 Systemic lupus erythematosus, unspecified; Z86.711 Personal history of pulmonary embolism; Z87.19 Personal history of other diseases of the digestive system; Z87.442 Personal history of urinary calculi; R10.13 Epigastric pain; Z88.0 Allergy status to penicillin; I25.2 Old myocardial infarction; Z90.49 Acquired absence of other specified parts of digestive tract; Z90.710 Acquired absence of both cervix and uterus; Z88.1 Allergy status to other antibiotic agents; Z88.2 Allergy status to sulfonamides; Z88.8 Allergy status to other drugs, medicaments and biological substances; Z91.041 Radiographic dye allergy status
CPT/HCPCS: 36415; 74022; 80048; 80076; 81001; 82553; 83690; 84484; 85025; 93005; 99285-25; J0500; Q0162

== ENCOUNTER 2018-12-07 01:22 | Emergency (ER) | payer SELFPAY ==
[~2018-12-07] VITALS: Ht 172.7 cm; Wt 127.0 kg
[~2018-12-07 01:22] MED LIST changes: +CLON1TAB11 PO; -CLON1TAB3 PO; +HYDR-3164 PO
[2018-12-07 02:08] LABS: BILIRUBIN,URINE SMALL (NEG); CLARITY,URINE CLEAR; COLOR,URINE YELLOW; NITRITE,URINE NEGATIVE (NEG); PH,URINE 5.5; PROTEIN,URINE NEGATIVE (NEG-TRACE); UROBILINOGEN,URINE 0.2 mg/dL (0.2 mg/dL)
[2018-12-07 02:28] LABS: BACTERIA,URINE MODERATE /HPF (0-FEW); HYALINE CASTS, URINE FEW /HPF; SQUAMOUS EPITHELIAL CELL,UR MOD /LPF
[2018-12-07] MEDS ORDERED: METOCLOPRAMIDE HCL 10 MG/2 ML VIAL. IV ONE (02:45)
[2018-12-07] MEDS ORDERED: IV NORMAL SALINE 1000ML BAG 1,000 ML IV ONE (02:45)
[2018-12-07] MEDS ORDERED: fentaNYL PF VIAL 100 MCG/2 ML VIAL IV ONE (02:45)
[2018-12-07 02:52] LABS: BASO # 0.1 x10^3/uL (0.0-0.2); BASO % 1 % (0-3); EOS # 0.4 x10^3/uL (0.0-0.7); EOS % 4 % (0-3); HEMATOCRIT 38.8 % (36.0-47.0); HEMOGLOBIN 13.1 g/dL (12.0-15.5); LYMPH # 5.1 x10^3/uL (1.0-4.8); LYMPH % 42 % (24-48); MEAN CORPUSCULAR HEMOGLOBIN 32 pg (25-35); MEAN CORPUSCULAR HGB CONC 34 g/dL (31-37); MEAN CORPUSCULAR VOLUME 95 fL (79-100); MONO # 1.1 x10^3/uL (0.0-1.1); MONO % 9 % (0-9); NEUT # 5.4 x10^3uL (1.8-7.7); NEUT % 45 % (31-73); PLATELET COUNT 463 x10^3/uL (140-400); RED BLOOD COUNT 4.09 x10^6/uL (3.50-5.40); WHITE BLOOD COUNT 12.1 x10^3/uL (4.0-11.0)
[2018-12-07 03:09] LABS: CALCIUM 9.8 mg/dL (8.5-10.1); CREATININE 1.1 mg/dL (0.6-1.0); GFR 54.2
[2018-12-07 03:14] LABS: ALBUMIN 3.9 g/dL (3.4-5.0); MAGNESIUM 1.8 mg/dL (1.8-2.4); TOTAL BILIRUBIN 0.4 mg/dL (0.2-1.0); TOTAL PROTEIN 7.7 g/dL (6.4-8.2)
--- NOTE | 2018-12-07 03:41 | RAD ---
CT abdomen and pelvis without contrast PQRS statement: CT scans at this facility use dose reduction including either automated exposure control, iterative reconstructions, and /or weight based radiation dosing via mA and kV modification when appropriate to reduce radiation dose to as low as reasonably achievable. HISTORY: Right flank pain, right groin pain. TECHNIQUE: Helical multiplanar reconstructed noncontrast CT imaging of the abdomen and pelvis was acquired. Abdomen findings: Mosaic attenuation of the lungs, nonspecific, could indicate areas of air trapping. Thin linear atelectasis or scarring right middle lobe. IVC filter. Cholecystectomy. Liver, spleen, pancreas, adrenal glands unremarkable. Small left renal calculi and right renal calculi measuring 1 to 2 mm in size. No ureteral calculi or hydronephrosis. Moderate volume of stool right-sided colon. No bowel obstruction or inflammation. Appendix not visualized. No abdominal fluid. Pelvis findings: No bladder calculi. Hysterectomy. The could be mild groundglass edema surrounding the bladder. Ovaries absent. Rectum and bones are unremarkable. No pelvic fluid. IMPRESSION: 1. There may be mild edema about the bladder could indicate cystitis. 2. Tiny renal calculi. No ureteral or bladder calculi or hydronephrosis. Electronically signed by: Julian Aguilar MD (12/07/2018 3:37 AM) [id number]
--- NOTE | 2018-12-07 03:45 | PHYS DOC ---
Past Medical History Past Medical History: CHF, COPD, DVT, High Cholesterol, Hypertension, Kidney Stone, [place], P.U.D., UTI, Other Additional Past Medical Histor: Pulmonary Embolism, Lupus, Bleeding Gastric Ulcers Past Surgical History: Appendectomy, Cholecystectomy, , Hysterectomy, Other Additional Past Surgical Histo: IVC filter placed and removed Alcohol Use: Rarely Drug Use: None Adult General Chief Complaint Chief Complaint: FLANK PAIN HPI HPI Patient is a 42-year-old female is presenting with right sided flank pain that began on Friday. She reports this pain is sharp, episodic, radiates to the groin , and as 9 out of 10. She reports some nausea and urinary retention. She denies dysuria and hematuria. Patient reports that she has a history of kidney stones and this feels very similar to that. Patient has taken Tylenol for the pain to no relief. Patient denies trauma. Review of Systems Review of Systems Constitutional: Denies fever or chills [] Eyes: Denies change in visual acuity, redness, or eye pain [] HENT: Denies nasal congestion or sore throat [] Respiratory: Denies cough or shortness of breath [] Cardiovascular: Denies chest pain or palpitations[] GI: Denies abdominal pain, nausea, vomiting, or diarrhea [] : Denies dysuria or hematuria [] Musculoskeletal: Reports lower right-sided back pain that radiates to the groin , denies joint pain [] Integument: Denies rash or skin lesions [] Neurologic: Denies headache, focal weakness or sensory changes [] Complete systems were reviewed and found to be within normal limits, except as documented in this note. Current Medications Current Medications Current Medications Medications (Trade) Dose Ordered Sig/Tex Start Time Stop Time Status Last Admin Dose Admin Acetaminophen/ Hydrocodone Bitart (Lortab 5/325) 1 tab 1X ONCE 12/07/18 04:15 12/07/18 04:16 DC 12/07/18 04:18 1 TAB Fentanyl Citrate (Fentanyl 2ml Vial) 50 mcg 1X ONCE 12/07/18 02:45 12/07/18 02:46 DC 12/07/18 02:53 50 MCG Metoclopramide HCl (Reglan Vial) 10 mg 1X ONCE 12/07/18 02:45 12/07/18 02:46 DC 12/07/18 02:54 10 MG Nitrofurantoin Macrocrystals (Macrobid) 100 mg 1X ONCE 12/07/18 04:15 12/07/18 04:16 DC 12/07/18 04:18 100 MG Phenazopyridine HCl (Pyridium) 200 mg 1X ONCE 12/07/18 04:15 12/07/18 04:16 DC 12/07/18 04:18 200 MG Sodium Chloride 1,000 ml @ 1,000 mls/hr 1X ONCE 12/07/18 02:45 12/07/18 03:44 DC 12/07/18 02:53 1,000 MLS/HR Allergies Allergies Allergies Coded Allergies Type Severity Reaction Last Updated Verified Cephalexin Monohydrate Allergy Intermediate 06/30/17 Yes NSAIDS (Non-Steroidal Anti-Inflamma Allergy Intermediate 09/27/17 Yes Penicillins Allergy Intermediate 06/30/17 Yes iodine Allergy Intermediate 06/30/17 Yes lidocaine Allergy Intermediate 06/30/17 Yes prochlorperazine edisylate Allergy Intermediate 06/30/17 Yes prochlorperazine maleate Allergy Intermediate 06/30/17 Yes sulfamethoxazole Allergy Intermediate 06/30/17 Yes trimethoprim Allergy Intermediate 06/30/17 Yes Physical Exam Physical Exam Constitutional: Well developed, well nourished, no acute distress, non-toxic appearance. [] HENT: Normocephalic, atraumatic, nose normal. [] Eyes: Conjunctiva normal, no discharge. [] Neck: Normal range of motion, no tenderness. [] Cardiovascular: Heart rate regular rhythm, no murmur [] Lungs & Thorax: Bilateral breath sounds clear to auscultation [] Abdomen: Soft, no tenderness. [] Skin: Warm, dry, no erythema, no rash. [] Back: Tenderness to palpation on the lower right side, right sided CVA tenderness. [] Extremities: No tenderness, no edema. [] Neurologic: Alert and oriented X 3, no focal deficits noted. [] Psychologic: Affect normal, judgement normal, mood normal. [] Current Patient Data Vital Signs Vital Signs Date Time Temp Pulse Resp B/P (MAP) Pulse Ox O2 Delivery O2 Flow Rate FiO2 12/07/18 04:00 88 18 153/87 (109) 99 12/07/18 01:32 97.7 Room Air 97.7 Lab Values Laboratory Tests Test 12/07/18 01:54 12/07/18 02:40 Urine Collection Type Unknown Urine Color Yellow Urine Clarity Clear Urine pH 5.5 Urine Specific [place] >=1.030 Urine Protein Negative mg/dL (NEG-TRACE) Urine Glucose (UA) Negative mg/dL (NEG) Urine Ketones (Stick) Negative mg/dL (NEG) Urine Blood Large (NEG) Urine Nitrite Negative (NEG) Urine Bilirubin Small (NEG) Urine Urobilinogen Dipstick 0.2 mg/dL (0.2 mg/dL) Urine Leukocyte Esterase Negative (NEG) Urine RBC 1-2 /HPF (0-2) Urine WBC 5-10 /HPF (0-4) Urine Squamous Epithelial Cells Mod /LPF Urine Bacteria Moderate /HPF (0-FEW) Urine Hyaline Casts Few /HPF Urine Mucus Marked /LPF White Blood Count 12.1 x10^3/uL (4.0-11.0) H Red Blood Count 4.09 x10^6/uL (3.50-5.40) Hemoglobin 13.1 g/dL (12.0-15.5) Hematocrit 38.8 % (36.0-47.0) Mean Corpuscular Volume 95 fL (79-100) Mean Corpuscular Hemoglobin 32 pg (25-35) Mean Corpuscular Hemoglobin Concent 34 g/dL (31-37) Red Cell Distribution Width 14.0 % (11.5-14.5) Platelet Count 463 x10^3/uL (140-400) H Neutrophils (%) (Auto) 45 % (31-73) Lymphocytes (%) (Auto) 42 % (24-48) Monocytes (%) (Auto) 9 % (0-9) Eosinophils (%) (Auto) 4 % (0-3) H Basophils (%) (Auto) 1 % (0-3) Neutrophils # (Auto) 5.4 x10^3uL (1.8-7.7) Lymphocytes # (Auto) 5.1 x10^3/uL (1.0-4.8) H Monocytes # (Auto) 1.1 x10^3/uL (0.0-1.1) Eosinophils # (Auto) 0.4 x10^3/uL (0.0-0.7) Basophils # (Auto) 0.1 x10^3/uL (0.0-0.2) Sodium Level 140 mmol/L (136-145) Potassium Level 4.0 mmol/L (3.5-5.1) Chloride Level 105 mmol/L (98-107) Carbon Dioxide Level 20 mmol/L (21-32) L Anion Gap 15 (6-14) H Blood Urea Nitrogen 15 mg/dL (7-20) Creatinine 1.1 mg/dL (0.6-1.0) H Estimated GFR (Cockcroft-Gault) 54.2 BUN/Creatinine Ratio 14 (6-20) Glucose Level 91 mg/dL (70-99) Calcium Level 9.8 mg/dL (8.5-10.1) Magnesium Level 1.8 mg/dL (1.8-2.4) Total Bilirubin 0.4 mg/dL (0.2-1.0) Aspartate Amino Transferase (AST) 9 U/L (15-37) L Alanine Aminotransferase (ALT) 26 U/L (14-59) Alkaline Phosphatase 94 U/L (46-116) Total Protein 7.7 g/dL (6.4-8.2) Albumin 3.9 g/dL (3.4-5.0) Albumin/Globulin Ratio 1.0 (1.0-1.7) Laboratory Tests 12/07/18 02:40 Laboratory Tests 12/07/18 02:40 EKG EKG [] Radiology/Procedures Radiology/Procedures PROCEDURE: CT ABDOMEN PELVIS WO CONTRAST CT abdomen and pelvis without contrast PQRS statement: CT scans at this facility use dose reduction including either automated exposure control, iterative reconstructions, and /or weight based radiation dosing via mA and kV modification when appropriate to reduce radiation dose to as low as reasonably achievable. HISTORY: Right flank pain, right groin pain. TECHNIQUE: Helical multiplanar reconstructed noncontrast CT imaging of the abdomen and pelvis was acquired. Abdomen findings: Mosaic attenuation of the lungs, nonspecific, could indicate areas of air trapping. Thin linear atelectasis or scarring right middle lobe. IVC filter. Cholecystectomy. Liver, spleen, pancreas, adrenal glands unremarkable. Small left renal calculi and right renal calculi measuring 1 to 2 mm in size. No ureteral calculi or hydronephrosis. Moderate volume of stool right-sided colon. No bowel obstruction or inflammation. Appendix not visualized. No abdominal fluid. Pelvis findings: No bladder calculi. Hysterectomy. The could be mild groundglass edema surrounding the bladder. Ovaries absent. Rectum and bones are unremarkable. No pelvic fluid. IMPRESSION: 1. There may be mild edema about the bladder could indicate cystitis. 2. Tiny renal calculi. No ureteral or bladder calculi or hydronephrosis. Electronically signed by: Julian Aguilar MD (12/07/2018 3:37 AM) [facility] Course & Med Decision Making Course & Med Decision Making Pertinent Labs and Imaging studies reviewed. (See chart for details) She is a 43-year-old female is presenting with lower right-sided back pain that radiates to the groin. Patient has a history of kidney stones and reports that his pain feels very similar. Urinalysis was positive for gross blood. Labs were obtained and posted to chart. CT abdomen and pelvis shows no ureteral or bladder calculi but mild cystitis. White blood cell count 12.1. Creatinine 1.1, elevated from baseline. Fluids administered. Pain and nausea addressed. Patient stable for discharge with outpatient follow-up with PCP. Discussed findings and plan with patient and family, who acknowledge understanding and agreement. Dragon Disclaimer Dragon Disclaimer This electronic medical record was generated, in whole or in part, using a voice recognition dictation system. Departure Departure Impression: Primary Impression: Flank pain Additional Impression: Cystitis Disposition: 01 HOME, SELF-CARE Condition: STABLE Referrals: UNKNOWN PCP NAME (PCP) Patient Instructions: Flank Pain, Tefo-cf-Otyd, Urinary Tract Infection, Easy- to-Read Scripts Phenazopyridine Hcl (PYRIDIUM) 200 Mg Tablet 200 MG PO TID, #6 TAB Prov: GREGORIA SLAUGHTER DO 12/07/18 Hydrocodone/Apap 5-325 (NORCO 5-325 TABLET) 1 Each Tablet 1 TAB PO PRN Q6HRS PRN for PAIN, #6 TAB 0 Refills Prov: GREGORIA SLAUGHTER DO 12/07/18 Nitrofurantoin Monohyd/M-Cryst (MACROBID 100 MG CAPSULE) 100 Mg Capsule 1 CAP PO BID for UTI, #14 CAP Prov: GREGORIA SLAUGHTER DO 12/07/18 Problem Qualifiers GREGORIA SLAUGHTER DO Dec 07, 2018 03:45
[2018-12-07] MEDS ORDERED: NITR100C62 PO (03:59)
[2018-12-07] MEDS ORDERED: PHEN-318 PO (03:59)
[2018-12-07] MEDS ORDERED: HYDR-3164 PO (03:59)
[2018-12-07 04:00] VITALS: BP 153/87
[2018-12-07] MEDS ORDERED: PHENAZOPYRIDINE 200 MG TABLET. PO ONE (04:15)
[2018-12-07] MEDS ORDERED: NITROFURANTOIN MONOHYD/M-CRYST 100 MG CAPSULE. PO ONE (04:15)
[2018-12-07] MEDS ORDERED: HYDROcodone/APAP 5/325MG 1 TAB TABLET PO ONE (04:15)
== END 2018-12-07 04:24 | disposition home or self-care (01) ==
LOC: ER 01:22
DX: N30.80 Other cystitis without hematuria (principal); M54.5 Low back pain; R10.9 Unspecified abdominal pain; I11.0 Hypertensive heart disease with heart failure; I50.9 Heart failure, unspecified; J44.9 Chronic obstructive pulmonary disease, unspecified; E78.00 Pure hypercholesterolemia, unspecified; I25.2 Old myocardial infarction; Z86.718 Personal history of other venous thrombosis and embolism; Z86.711 Personal history of pulmonary embolism; Z90.49 Acquired absence of other specified parts of digestive tract; Z90.89 Acquired absence of other organs; Z90.710 Acquired absence of both cervix and uterus; Z98.890 Other specified postprocedural states; Z88.0 Allergy status to penicillin; Z88.8 Allergy status to other drugs, medicaments and biological substances; Z88.2 Allergy status to sulfonamides; Z88.1 Allergy status to other antibiotic agents; Z88.4 Allergy status to anesthetic agent; Z91.041 Radiographic dye allergy status
CPT/HCPCS: 36415; 74176; 80053; 81001; 83735; 85025; 87086; 96374; 96375; 99284; J2765; J3010; J7030

== ENCOUNTER 2018-12-20 21:11 | Emergency (ER) | payer SELFPAY ==
[~2018-12-20] VITALS: Ht 172.7 cm; Wt 128.4 kg
[~2018-12-20 21:11] MED LIST changes: +NITR100C62 PO; +PHEN-318 PO
[2018-12-20 21:25] VITALS: BP 161/98
[2018-12-20] MEDS ORDERED: DICL50TA4 PO (21:55)
[2018-12-20] MEDS ORDERED: CLIN300C8 PO (21:55)
--- NOTE | 2018-12-20 21:56 | PHYS DOC ---
Past Medical History Past Medical History: CHF, COPD, DVT, High Cholesterol, Hypertension, Kidney Stone, [place], P.U.D., UTI, Other Additional Past Medical Histor: Pulmonary Embolism, Lupus, Bleeding Gastric Ulcers Past Surgical History: Appendectomy, Cholecystectomy, , Hysterectomy, Tonsillectomy, Other Additional Past Surgical Histo: IVC filter placed and removed Alcohol Use: Rarely Drug Use: None Adult General Chief Complaint Chief Complaint: ABSCESS HPI HPI Patient is a 43 year old female who presents complaining of moderate throbbing , constant pain to the right upper and lower gums that began today. Patient denies any fever or trismus. She states she does not have any teeth, they were pulled out a couple years back. She states she feels like she is testing infection draining from her gums. Review of Systems Review of Systems Constitutional: Denies fever or chills [] HENT: Reports right upper and lower gum pain Musculoskeletal: Denies back pain or joint pain [] Integument: Denies rash or skin lesions [] Neurologic: Denies headache, focal weakness or sensory changes [] All other systems were reviewed and found to be within normal limits, except as documented in this note. Allergies Allergies Allergies Coded Allergies Type Severity Reaction Last Updated Verified Cephalexin Monohydrate Allergy Intermediate 06/30/17 Yes NSAIDS (Non-Steroidal Anti-Inflamma Allergy Intermediate 09/27/17 Yes Penicillins Allergy Intermediate 06/30/17 Yes iodine Allergy Intermediate 06/30/17 Yes lidocaine Allergy Intermediate 06/30/17 Yes prochlorperazine edisylate Allergy Intermediate 06/30/17 Yes prochlorperazine maleate Allergy Intermediate 06/30/17 Yes sulfamethoxazole Allergy Intermediate 06/30/17 Yes trimethoprim Allergy Intermediate 06/30/17 Yes Physical Exam Physical Exam Constitutional: Well developed, well nourished, no acute distress, non-toxic appearance. [] HENT: Normocephalic, atraumatic, bilateral external ears normal, oropharynx moist, no oral exudates, nose normal. [] Patient is edentulous, right upper gum around the molars and wisdom tooth with slight swelling no erythema no drainage. Skin: Warm, dry, no erythema, no rash. [] Back: No tenderness, no CVA tenderness. [] Extremities: No tenderness, no cyanosis, no clubbing, ROM intact, no edema. [] Neurologic: Alert and oriented X 3, normal motor function, normal sensory function, no focal deficits noted. [] Psychologic: Affect normal, judgement normal, mood normal. [] Current Patient Data Vital Signs Vital Signs Date Time Temp Pulse Resp B/P (MAP) Pulse Ox O2 Delivery O2 Flow Rate FiO2 12/20/18 21:25 97.9 91 16 161/98 (119) 98 Room Air 97.9 EKG EKG [] Radiology/Procedures Radiology/Procedures [] Course & Med Decision Making Course & Med Decision Making Pertinent Labs and Imaging studies reviewed. (See chart for details) This is a 43-year-old edentulous patient presenting with right upper and lower gum pain, right upper gum around the molars and wisdom tooth with slight swelling no erythema no drainage. Patient was discharged with clindamycin. Ktracs shows this patient receives multiple medications including benzodiazepines as well as narcotics from different providers. Will be discharged with diclofenac for pain follow-up with her own PCP. Dragon Disclaimer Dragon Disclaimer This electronic medical record was generated, in whole or in part, using a voice recognition dictation system. Departure Departure Impression: Primary Impression: Dental abscess Disposition: 01 HOME, SELF-CARE Condition: STABLE Referrals: UNKNOWN PCP NAME (PCP) Follow-up with your primary care doctor as well as a dentist Patient Instructions: Dental Abscess Additional Instructions: You were evaluated in the emergency room. We'll put you on antibiotics, take them as prescribed. Please follow-up with your primary care doctor as well as a dentist in the next 1-2 weeks Scripts Diclofenac Sodium (DICLOFENAC SODIUM) 50 Mg Tablet. 1 TAB PO BID, #30 TAB 0 Refills Prov: BALA FAJARDO APRN 12/20/18 Clindamycin Hcl (CLINDAMYCIN HCL) 300 Mg Capsule 1 CAP PO TID, #21 CAP Prov: BALA FAJARDO APRN 12/20/18 BALA FAJARDO APRN Dec 20, 2018 21:56
== END 2018-12-20 22:00 | disposition home or self-care (01) ==
LOC: ER 21:11
DX: K04.7 Periapical abscess without sinus (principal); I11.0 Hypertensive heart disease with heart failure; J44.9 Chronic obstructive pulmonary disease, unspecified; I25.2 Old myocardial infarction; E78.00 Pure hypercholesterolemia, unspecified; Z86.718 Personal history of other venous thrombosis and embolism; Z86.711 Personal history of pulmonary embolism; Z87.440 Personal history of urinary (tract) infections; Z98.890 Other specified postprocedural states; Z90.89 Acquired absence of other organs; Z90.710 Acquired absence of both cervix and uterus; Z90.49 Acquired absence of other specified parts of digestive tract; Z88.0 Allergy status to penicillin; Z88.2 Allergy status to sulfonamides; Z88.1 Allergy status to other antibiotic agents; Z88.8 Allergy status to other drugs, medicaments and biological substances; Z88.4 Allergy status to anesthetic agent; Z91.041 Radiographic dye allergy status
CPT/HCPCS: 99283

== ENCOUNTER 2019-01-01 05:52 | Emergency (ER) | payer SELFPAY ==
[~2019-01-01] VITALS: Ht 172.7 cm; Wt 128.4 kg
[~2019-01-01 05:52] MED LIST changes: +CLIN300C8 PO; +DICL50TA4 PO
[2019-01-01 05:55] VITALS: BP 124/90
--- NOTE | 2019-01-01 06:27 | PHYS DOC ---
Past Medical History Past Medical History: CHF, COPD, DVT, High Cholesterol, Hypertension, Kidney Stone, [place], P.U.D., UTI, Other Additional Past Medical Histor: Pulmonary Embolism, Lupus, Bleeding Gastric Ulcers Past Surgical History: Appendectomy, Cholecystectomy, , Hysterectomy, Tonsillectomy, Other Additional Past Surgical Histo: IVC filter placed and removed Alcohol Use: Rarely Drug Use: None Adult General Chief Complaint Chief Complaint: CHEST PAIN HPI HPI Patient is a 43 year old female presenting with chest pain left side sharp radiates to the flank associated with shortness of breath 6 days went to imaging center near [facility] in said that she had a spot on her left lung she is worried about that is hurting. She took Tylenol and nitroglycerin with minimal relief of her symptoms she has been here several times before and usually leaves AGAINST MEDICAL ADVICE. Review of Systems Review of Systems Constitutional: Denies fever or chills [] Eyes: Denies change in visual acuity, redness, or eye pain [] HENT: Denies nasal congestion or sore throat [] GI: Denies abdominal pain, , vomiting, bloody stools or diarrhea [] : Denies dysuria or hematuria [] Musculoskeletal: Denies back pain or joint pain [] Integument: Denies rash or skin lesions [] Neurologic: Denies headache, focal weakness or sensory changes [] Endocrine: Denies polyuria or polydipsia [] All other systems were reviewed and found to be within normal limits, except as documented in this note. Current Medications Current Medications Current Medications Medications (Trade) Dose Ordered Sig/Tex Start Time Stop Time Status Last Admin Dose Admin Nitroglycerin (Nitrostat) 0.4 mg PRN Q5MIN PRN 01/01/19 06:30 Allergies Allergies Allergies Coded Allergies Type Severity Reaction Last Updated Verified Cephalexin Monohydrate Allergy Intermediate 06/30/17 Yes NSAIDS (Non-Steroidal Anti-Inflamma Allergy Intermediate 09/27/17 Yes Penicillins Allergy Intermediate 06/30/17 Yes iodine Allergy Intermediate 06/30/17 Yes lidocaine Allergy Intermediate 06/30/17 Yes prochlorperazine edisylate Allergy Intermediate 06/30/17 Yes prochlorperazine maleate Allergy Intermediate 06/30/17 Yes sulfamethoxazole Allergy Intermediate 06/30/17 Yes trimethoprim Allergy Intermediate 06/30/17 Yes Physical Exam Physical Exam Constitutional: Well developed, well nourished, no acute distress, non-toxic appearance. [] HENT: Normocephalic, atraumatic, bilateral external ears normal, oropharynx moist, no oral exudates, nose normal. [] Eyes: PERRLA, EOMI, conjunctiva normal, no discharge. [] Neck: Normal range of motion, no tenderness, supple, no stridor. [] Cardiovascular:Heart rate regular rhythm, no murmur [] Lungs & Thorax: Bilateral breath sounds clear to auscultation [] Abdomen: Bowel sounds normal, soft, no tenderness, no masses, no pulsatile masses. [] Skin: Warm, dry, no erythema, no rash. [] Back: No tenderness, no CVA tenderness. [] Extremities: No tenderness, no cyanosis, no clubbing, ROM intact, no edema. [] Neurologic: Alert and oriented X 3, normal motor function, normal sensory function, no focal deficits noted. [] Psychologic: Affect normal, judgement normal, mood normal. [] EKG EKG []EKG shows normal sinus rhythm rate of 90 no acute ischemic changes noted interpreted by me the timing encounter. Radiology/Procedures Radiology/Procedures [] Course & Med Decision Making Course & Med Decision Making Pertinent Labs and Imaging studies reviewed. (See chart for details) []pt was here 35 minutes. shortly after i notified her that we would treat her pain with nitro, she left AMA, she refused to sign the paperwork ando. she was notified about the potentila missed mi or pe that could be life threatening and she still left. she appeared of sound mind Dragon Disclaimer Dragon Disclaimer This electronic medical record was generated, in whole or in part, using a voice recognition dictation system. Departure Departure Impression: Primary Impression: Chest pain Disposition: HOME, SELF-CARE Condition: STABLE Referrals: UNKNOWN PCP NAME (PCP) ANTONIO HARDY MD Jan 01, 2019 06:27
[2019-01-01] MEDS ORDERED: NITROGLYCERIN SUBLINGUAL 0.4 MG BOTTLE OF 25. SL PRN (06:30)
--- NOTE | 2019-01-01 11:40 | EKG ---
[facility] [address] [place] [address] Test Date: 2019-01-01 Test Time: 05:59:15 Pat Name: TRACIE GAONA Department: Room: Gender: F Specialized Developer: : 1975 Requested By: ANTONIO HARDY Order Number: [id number] Reading MD: Cesar Alvarez Measurements Intervals [place] Rate: 90 P: 38 ME: 158 QRS: -12 QRSD: 96 T: 34 QT: 344 QTc: 425 Interpretive Statements SINUS RHYTHM LEFTWARD AXIS Electronically Signed On 01-12-2019 10:19:51 [employer] by Cesar Alvarez
== END 2019-01-01 06:29 | disposition left against medical advice (07) ==
LOC: ER 05:52
DX: R07.89 Other chest pain (principal); R06.02 Shortness of breath; I11.0 Hypertensive heart disease with heart failure; I50.9 Heart failure, unspecified; J44.9 Chronic obstructive pulmonary disease, unspecified; I25.2 Old myocardial infarction; Z86.718 Personal history of other venous thrombosis and embolism; Z87.442 Personal history of urinary calculi; Z86.711 Personal history of pulmonary embolism; Z90.89 Acquired absence of other organs; Z90.49 Acquired absence of other specified parts of digestive tract; Z90.710 Acquired absence of both cervix and uterus; Z98.890 Other specified postprocedural states; Z88.1 Allergy status to other antibiotic agents; Z88.0 Allergy status to penicillin; Z88.8 Allergy status to other drugs, medicaments and biological substances; Z88.2 Allergy status to sulfonamides; Z88.4 Allergy status to anesthetic agent; Z91.041 Radiographic dye allergy status
CPT/HCPCS: 93005; 99284

== ENCOUNTER 2019-04-05 13:31 | Emergency (ER) | payer SELFPAY ==
[~2019-04-05] VITALS: Ht 172.7 cm; Wt 106.1 kg
[2019-04-05] MEDS ORDERED: DIPHTH,PERTUSS(ACELL),TET TOX 0.5 ML DISP.SYRIN. VAX IM ONE (14:00)
--- NOTE | 2019-04-05 14:24 | PHYS DOC ---
Past Medical History Past Medical History: CHF, COPD, DVT, High Cholesterol, Hypertension, Kidney Stone, [place], P.U.D., UTI, Other Additional Past Medical Histor: Pulmonary Embolism, Lupus, Bleeding Gastric Ulcers Past Surgical History: Appendectomy, Cholecystectomy, , Hysterectomy, Tonsillectomy, Other Additional Past Surgical Histo: IVC filter placed and removed Alcohol Use: Rarely Drug Use: None Adult General Chief Complaint Chief Complaint: LACERATION/AVULSION HPI HPI Patient is a 43 year old female who presents with left forearm laceration, patient accidentally cut herself on a refrigerator she was moving. Review of Systems Review of Systems Constitutional: Denies fever or chills [] Musculoskeletal: Denies back pain or joint pain [] Integument: Left forearm laceration Neurologic: Denies headache, focal weakness or sensory changes [] All other systems were reviewed and found to be within normal limits, except as documented in this note. Current Medications Current Medications Current Medications Medications (Trade) Dose Ordered Sig/Tex Start Time Stop Time Status Last Admin Dose Admin Diphtheria/ Tetanus/Acell Pertussis (Boostrix) 0.5 ml ONCE ONCE 04/05/19 14:00 04/05/19 14:01 DC Allergies Allergies Allergies Coded Allergies Type Severity Reaction Last Updated Verified Cephalexin Monohydrate Allergy Intermediate 06/30/17 Yes NSAIDS (Non-Steroidal Anti-Inflamma Allergy Intermediate 09/27/17 Yes Penicillins Allergy Intermediate 06/30/17 Yes iodine Allergy Intermediate 06/30/17 Yes lidocaine Allergy Intermediate 06/30/17 Yes prochlorperazine edisylate Allergy Intermediate 06/30/17 Yes prochlorperazine maleate Allergy Intermediate 06/30/17 Yes sulfamethoxazole Allergy Intermediate 06/30/17 Yes trimethoprim Allergy Intermediate 06/30/17 Yes Physical Exam Physical Exam Constitutional: Well developed, well nourished, no acute distress, non-toxic appearance. [] Skin: Ventral aspect of the left forearm and proximal end with a laceration approximately 5 cm, this is a first-degree laceration, bleeding is well controlled, and no tendon involvement. Full range of motion to the left forearm. Full range of motion to the left fingers. Adequate radial, medial, ulnar sensation to the left hand. +2 left radial pulse. Cap refill less than 2 seconds the left fingers.[] Back: No tenderness, no CVA tenderness. [] Extremities: No tenderness, no cyanosis, no clubbing, ROM intact, no edema. [] Neurologic: Alert and oriented X 3, normal motor function, normal sensory function, no focal deficits noted. [] Psychologic: Affect normal, judgement normal, mood normal. [] Current Patient Data Vital Signs Vital Signs Date Time Temp Pulse Resp B/P (MAP) Pulse Ox O2 Delivery O2 Flow Rate FiO2 04/05/19 13:33 98.2 92 20 130/57 (81) 91 Room Air 98.2 EKG EKG [] Radiology/Procedures Radiology/Procedures [] Course & Med Decision Making Course & Med Decision Making Pertinent Labs and Imaging studies reviewed. (See chart for details) This is a 43-year-old female patient presenting to the ED today with left forearm laceration sustained today. Tetanus was updated. Patient could've benefited from stitches, unfortunately states she is allergic to lidocaine. The laceration was closed with Dermabond and Steri-Strips. Wound care instructions and return precautions provided. Dragon Disclaimer Dragon Disclaimer This electronic medical record was generated, in whole or in part, using a voice recognition dictation system. Departure Departure Impression: Primary Impression: Laceration of left forearm Disposition: HOME, SELF-CARE Condition: STABLE Referrals: NO PCP (PCP) follow up with your doctor in 1 week Patient Instructions: Laceration Care, Adult, [id number] Additional Instructions: You were seen for left forearm laceration. Keep the area clean and dry. You can shower and wash the area. Apply Neosporin to the area once the Steri-Strips are fall off. You can shower and wash yourself including the left forearm. The Steri-Strips will fall off on their own. Monitor the area for any signs of infection including but not limited to increased redness, warmth, yellow drainage from the area and return to the ED if they occur. Problem Qualifiers Primary Impression: Laceration of left forearm Encounter type: initial encounter Qualified Codes: S51.812A - Laceration without foreign body of left forearm, initial encounter BALA FAJARDO APRN April 05, 2019 14:24
== END 2019-04-05 14:41 | disposition home or self-care (01) ==
LOC: ER 13:31
DX: S51.812A Laceration without foreign body of left forearm, initial encounter (principal); J44.9 Chronic obstructive pulmonary disease, unspecified; I11.0 Hypertensive heart disease with heart failure; I50.9 Heart failure, unspecified; E78.00 Pure hypercholesterolemia, unspecified; I25.2 Old myocardial infarction; Z86.718 Personal history of other venous thrombosis and embolism; Z86.711 Personal history of pulmonary embolism; Z90.89 Acquired absence of other organs; Z90.49 Acquired absence of other specified parts of digestive tract; Z98.890 Other specified postprocedural states; Z90.710 Acquired absence of both cervix and uterus; Z87.442 Personal history of urinary calculi; Z88.0 Allergy status to penicillin; Z88.8 Allergy status to other drugs, medicaments and biological substances; Z88.1 Allergy status to other antibiotic agents; Z88.2 Allergy status to sulfonamides; Z88.4 Allergy status to anesthetic agent; Z91.041 Radiographic dye allergy status; W26.8XXA Contact with other sharp object(s), not elsewhere classified, initial encounter; Y93.89 Activity, other specified; Y92.89 Other specified places as the place of occurrence of the external cause; Y99.8 Other external cause status
CPT/HCPCS: 12002; 90471; 90715; 99283

== ENCOUNTER 2019-04-11 15:05 | Emergency (ER) | payer SELFPAY ==
[~2019-04-11] VITALS: Ht 172.7 cm; Wt 3.2 kg
[2019-04-11] MEDS ORDERED: MORPHINE SULFATE 4 MG/ML VIAL. IV ONE ×2 (15:45→17:00)
[2019-04-11] MEDS ORDERED: ONDANSETRON PF 4 MG/2 ML VIAL. IV ONE ×2 (15:45→18:30)
--- NOTE | 2019-04-11 15:50 | PHYS DOC ---
Past Medical History Past Medical History: CHF, COPD, DVT, High Cholesterol, Hypertension, Kidney Stone, [place], P.U.D., UTI, Other Additional Past Medical Histor: Pulmonary Embolism, Lupus, Bleeding Gastric Ulcers Past Surgical History: Appendectomy, Cholecystectomy, , Hysterectomy, Tonsillectomy, Other Additional Past Surgical Histo: IVC filter placed and removed Alcohol Use: Rarely Drug Use: None Adult General Chief Complaint Chief Complaint: FLANK PAIN HPI HPI Patient is a 43 year old female who presents with right-sided flank pain has been ongoing for 2 days. Also states that she has been having right calf pain and nausea. Has tried to take Tylenol at home which has only mildly helped her pain which she rates as 9 out of 10 and shooting. Has history of kidney stones and DVTs. Review of Systems Review of Systems Constitutional: Denies fever or chills [] Eyes: Denies change in visual acuity, redness, or eye pain [] HENT: Denies nasal congestion or sore throat [] Respiratory: Denies cough or shortness of breath [] Cardiovascular: No additional information not addressed in HPI [] GI: Reports R flank pain and nausea Denies vomiting, bloody stools or diarrhea [] : Denies dysuria or hematuria [] Musculoskeletal: Reports R sided back pain but denies joint pain [] Integument: Denies rash or skin lesions [] Neurologic: Denies headache, focal weakness or sensory changes [] Endocrine: Denies polyuria or polydipsia [] Complete systems were reviewed and found to be within normal limits, except as documented in this note. Current Medications Current Medications Current Medications Medications (Trade) Dose Ordered Sig/Tex Start Time Stop Time Status Last Admin Dose Admin Morphine Sulfate (Morphine Sulfate) 4 mg 1X ONCE 04/11/19 17:00 04/11/19 17:01 DC 04/11/19 16:47 4 MG Ondansetron HCl (Zofran) 4 mg 1X ONCE 04/11/19 15:45 04/11/19 15:46 DC 04/11/19 15:58 4 MG Allergies Allergies Allergies Coded Allergies Type Severity Reaction Last Updated Verified Cephalexin Monohydrate Allergy Intermediate 06/30/17 Yes NSAIDS (Non-Steroidal Anti-Inflamma Allergy Intermediate 09/27/17 Yes Penicillins Allergy Intermediate 06/30/17 Yes iodine Allergy Intermediate 06/30/17 Yes lidocaine Allergy Intermediate 06/30/17 Yes prochlorperazine edisylate Allergy Intermediate 06/30/17 Yes prochlorperazine maleate Allergy Intermediate 06/30/17 Yes sulfamethoxazole Allergy Intermediate 06/30/17 Yes trimethoprim Allergy Intermediate 06/30/17 Yes Physical Exam Physical Exam Constitutional: Well developed, well nourished, no acute distress, non-toxic appearance. [] HENT: Normocephalic, atraumatic, bilateral external ears normal, oropharynx moist, no oral exudates, nose normal. [] Eyes: PERRLA, EOMI, conjunctiva normal, no discharge. [] Neck: Normal range of motion, no tenderness, supple, no stridor. [] Cardiovascular:Heart rate regular rhythm, no murmur [] Lungs & Thorax: Bilateral breath sounds clear to auscultation [] Abdomen: Bowel sounds normal, soft, tenderness to R side of abdomen, no masses, no pulsatile masses. [] Skin: Warm, dry, no erythema, no rash. [] Back: Has tenderness, Has R CVA tenderness. [] Extremities: No tenderness, no cyanosis, no clubbing, ROM intact, no edema. [] Neurologic: Alert and oriented X 3, normal motor function, normal sensory function, no focal deficits noted. [] Psychologic: Affect normal, judgement normal, mood normal. [] Current Patient Data Vital Signs Vital Signs Date Time Temp Pulse Resp B/P (MAP) Pulse Ox O2 Delivery O2 Flow Rate FiO2 04/11/19 17:58 88 122/72 (89) 04/11/19 17:17 18 04/11/19 15:25 98.9 98.9 Lab Values Laboratory Tests Test 04/11/19 15:40 White Blood Count 9.7 x10^3/uL (4.0-11.0) Red Blood Count 3.85 x10^6/uL (3.50-5.40) Hemoglobin 12.4 g/dL (12.0-15.5) Hematocrit 36.5 % (36.0-47.0) Mean Corpuscular Volume 95 fL (79-100) Mean Corpuscular Hemoglobin 32 pg (25-35) Mean Corpuscular Hemoglobin Concent 34 g/dL (31-37) Red Cell Distribution Width 13.8 % (11.5-14.5) Platelet Count 509 x10^3/uL (140-400) H Neutrophils (%) (Auto) 48 % (31-73) Lymphocytes (%) (Auto) 41 % (24-48) Monocytes (%) (Auto) 6 % (0-9) Eosinophils (%) (Auto) 4 % (0-3) H Basophils (%) (Auto) 1 % (0-3) Neutrophils # (Auto) 4.7 x10^3uL (1.8-7.7) Lymphocytes # (Auto) 4.0 x10^3/uL (1.0-4.8) Monocytes # (Auto) 0.6 x10^3/uL (0.0-1.1) Eosinophils # (Auto) 0.4 x10^3/uL (0.0-0.7) Basophils # (Auto) 0.1 x10^3/uL (0.0-0.2) Platelet Estimate Increased (ADEQUATE) Urine Collection Type Unknown Urine Color Yellow Urine Clarity Clear Urine pH 5.5 Urine Specific [place] 1.025 Urine Protein Negative mg/dL (NEG-TRACE) Urine Glucose (UA) Negative mg/dL (NEG) Urine Ketones (Stick) Negative mg/dL (NEG) Urine Blood Negative (NEG) Urine Nitrite Negative (NEG) Urine Bilirubin Negative (NEG) Urine Urobilinogen Dipstick 0.2 mg/dL (0.2 mg/dL) Urine Leukocyte Esterase Negative (NEG) Urine RBC 0 /HPF (0-2) Urine WBC Rare /HPF (0-4) Urine Squamous Epithelial Cells Many /LPF Urine Bacteria Few /HPF (0-FEW) Urine Hyaline Casts Occasional /HPF Urine Mucus Mod /LPF Sodium Level 142 mmol/L (136-145) Potassium Level 5.0 mmol/L (3.5-5.1) Chloride Level 107 mmol/L (98-107) Carbon Dioxide Level 19 mmol/L (21-32) L Anion Gap 16 (6-14) H Blood Urea Nitrogen 11 mg/dL (7-20) Creatinine 0.8 mg/dL (0.6-1.0) Estimated GFR (Cockcroft-Gault) 78.3 BUN/Creatinine Ratio 14 (6-20) Glucose Level 107 mg/dL (70-99) H Calcium Level 9.1 mg/dL (8.5-10.1) Total Bilirubin 0.4 mg/dL (0.2-1.0) Aspartate Amino Transferase (AST) 24 U/L (15-37) Alanine Aminotransferase (ALT) 20 U/L (14-59) Alkaline Phosphatase 65 U/L (46-116) Total Protein 7.6 g/dL (6.4-8.2) Albumin 4.0 g/dL (3.4-5.0) Albumin/Globulin Ratio 1.1 (1.0-1.7) Lipase 75 U/L (73-393) Laboratory Tests 04/11/19 15:40 Laboratory Tests 04/11/19 15:40 EKG EKG [] Radiology/Procedures Radiology/Procedures Dr. Khanna @ [id number] reports that there are bilateral small nephrolithiasis with no ureterolithiasis. Show inflammation around bladder. Ultrasound was negative for DVT. Course & Med Decision Making Course & Med Decision Making Pertinent Labs and Imaging studies reviewed. (See chart for details) Based on symptoms and history will order a CT to look for Kidney stone, Ultrasound to look for DVT, labs, urine, and supportive care. Patient is agreeable. Labs are unremarkable. Imaging shows inflammation around the bladder but no cause. Will refer to Urology. Dragon Disclaimer Dragon Disclaimer This electronic medical record was generated, in whole or in part, using a voice recognition dictation system. Departure Departure Impression: Primary Impression: Flank pain Disposition: 01 HOME, SELF-CARE Condition: STABLE Referrals: NO PCP (PCP) AMARJIT TREADWELL MD Patient Instructions: Flank Pain Additional Instructions: Please follow up with urology. Follow up with primary care doctor. Come back to ER as needed. Take Tylenol for pain at home. Scripts Ondansetron (ONDANSETRON ODT) 4 Mg Tab.rapdis 1 TAB PO PRN Q6-8HRS PRN for NAUSEA, #16 TAB Prov: GREGORIA MANNING APRN 04/11/19 Cyclobenzaprine Hcl (CYCLOBENZAPRINE HCL) 10 Mg Tablet 1 TAB PO TID PRN for MUSCLE SPASMS, #30 TAB Prov: GREGORIA MANNING APRN 04/11/19 GREGORIA MANNING APRN Apr 11, 2019 15:50
[2019-04-11 15:58] LABS: BASO # 0.1 x10^3/uL (0.0-0.2); BASO % 1 % (0-3); EOS # 0.4 x10^3/uL (0.0-0.7); EOS % 4 % (0-3); HEMATOCRIT 36.5 % (36.0-47.0); HEMOGLOBIN 12.4 g/dL (12.0-15.5); LYMPH % 41 % (24-48); MEAN CORPUSCULAR HEMOGLOBIN 32 pg (25-35); MEAN CORPUSCULAR HGB CONC 34 g/dL (31-37); MEAN CORPUSCULAR VOLUME 95 fL (79-100); MONO # 0.6 x10^3/uL (0.0-1.1); MONO % 6 % (0-9); NEUT # 4.7 x10^3uL (1.8-7.7); NEUT % 48 % (31-73); PLATELET COUNT 509 x10^3/uL (140-400); RED BLOOD COUNT 3.85 x10^6/uL (3.50-5.40); RED CELL DISTRIBUTION WIDTH 13.8 % (11.5-14.5); WHITE BLOOD COUNT 9.7 x10^3/uL (4.0-11.0)
[2019-04-11 16:19] LABS: CALCIUM 9.1 mg/dL (8.5-10.1); CREATININE 0.8 mg/dL (0.6-1.0); GFR 78.3
[2019-04-11 16:21] LABS: ALBUMIN/GLOBULIN RATIO 1.1 (1.0-1.7); TOTAL BILIRUBIN 0.4 mg/dL (0.2-1.0); TOTAL PROTEIN 7.6 g/dL (6.4-8.2)
[2019-04-11 16:25] LABS: BILIRUBIN,URINE NEGATIVE (NEG); CLARITY,URINE CLEAR; COLOR,URINE YELLOW; NITRITE,URINE NEGATIVE (NEG); PH,URINE 5.5; PROTEIN,URINE NEGATIVE (NEG-TRACE); UROBILINOGEN,URINE 0.2 mg/dL (0.2 mg/dL)
[2019-04-11 16:48] LABS: BACTERIA,URINE FEW /HPF (0-FEW); HYALINE CASTS, URINE OCCASIONAL /HPF; RBC,URINE 0 /HPF (0-2); SQUAMOUS EPITHELIAL CELL,UR MANY /LPF; WBC,URINE RARE /HPF (0-4)
[2019-04-11 17:52] LABS: PLT ESTIMATE INCREASED (ADEQUATE)
[2019-04-11] MEDS ORDERED: CYCL10TA2 PO (18:18)
[2019-04-11] MEDS ORDERED: ONDA4TAB12 PO (18:22)
[2019-04-11 18:30] VITALS: BP 11/82
[2019-04-11] MEDS ORDERED: fentaNYL PF VIAL 100 MCG/2 ML VIAL IV ONE (18:30)
[2019-04-11] MEDS ORDERED: CYCLOBENZAPRINE 10 MG TABLET. PO ONE (18:30)
--- NOTE | 2019-04-12 10:09 | RAD ---
Examination: CT of the abdomen pelvis without contrast HISTORY: History of right flank pain for 2 days COMPARISON: 10/23/2017 TECHNIQUE: Axial CT images of the abdomen pelvis were performed without contrast and coronal sagittal reformats performed Exposure: One or more of the following individualized dose reduction techniques were utilized for this examination: 1. Automated exposure control 2. Adjustment of the mA and/or kV according to patient size 3. Use of iterative reconstruction technique This is a downtime report dictated the next day as the PACS was down on the day of examination. Report was called to the ordering physician immediately after time of examination. FINDINGS: Mild groundglass opacities identified in the bibasilar lungs probably small airway disease. No evidence of free air identified in the abdomen. The visualized noncontrasted liver, spleen, adrenals grossly appears unremarkable. Cholecystectomy clips identified. The stomach is mildly distended. The visualized pancreas grossly appears unremarkable. Small bowel is nondilated. The appendix is not well-visualized. No obvious inflammatory fat stranding identified in the right lower quadrant of the abdomen. Punctate intrarenal collecting system calculi identified in the bilateral kidneys. No evidence of hydronephrosis. Mild fat stranding identified about the urinary bladder probably cystitis. IVC filter is identified. Small subcentimeter mesenteric lymph nodes identified, nonspecific. No evidence of lytic bony destructive lesion. IMPRESSION: 1. Mild fat stranding identified about the urinary bladder probably cystitis. Correlate with lab values. 2. Bilateral nephrolithiasis without hydronephrosis. Electronically signed by: Samuel Khanna MD (04/12/2019 10:06 AM) [id number]
--- NOTE | 2019-04-12 10:59 | RAD ---
Examination: Lower Extremity Venous Doppler Ultrasound History: Right calf pain Comparison: None Procedure: Chatman scale, color flow 2D and spectal waveform analysis images are obtained with and without compression in the area of the common femoral vein, superficial femoral vein - femoral vein junction, main femoral vein (superficial femoral vein) and popliteal vein. Veins of the proximal calf are also imaged. This is a downtime report dictated the next day as the PACS was down on the day of examination. Report was called to the ordering physician immediately after time of examination. Findings: There is normal duplex flow, color flow and compressibility of all visualized vein segments. No evidence of deep venous thrombus is present. Impression: No evidence of DVT. Electronically signed by: Samuel Khanna MD (04/12/2019 10:56 AM) [place] [id number]
== END 2019-04-11 18:35 | disposition home or self-care (01) ==
LOC: ER 15:05
DX: N20.0 Calculus of kidney (principal); M79.661 Pain in right lower leg; R11.0 Nausea; I50.9 Heart failure, unspecified; I11.0 Hypertensive heart disease with heart failure; E78.00 Pure hypercholesterolemia, unspecified; J44.9 Chronic obstructive pulmonary disease, unspecified; Z86.718 Personal history of other venous thrombosis and embolism; I25.2 Old myocardial infarction; Z90.49 Acquired absence of other specified parts of digestive tract; Z86.711 Personal history of pulmonary embolism; Z90.710 Acquired absence of both cervix and uterus; Z90.89 Acquired absence of other organs; Z88.1 Allergy status to other antibiotic agents; Z88.0 Allergy status to penicillin; Z88.8 Allergy status to other drugs, medicaments and biological substances; Z88.4 Allergy status to anesthetic agent; Z91.041 Radiographic dye allergy status; Z88.2 Allergy status to sulfonamides
CPT/HCPCS: 36415; 74176; 80053; 81001; 83690; 85025; 93971; 96374; 96375; 96376; 99285; J2270; J2405; J3010

== ENCOUNTER 2019-04-25 12:50 | Emergency (ER) | payer SELFPAY ==
[~2019-04-25] VITALS: Ht 172.7 cm; Wt 96.2 kg
[~2019-04-25 12:50] MED LIST changes: +CYCL10TA2 PO; +ONDA4TAB12 PO
[2019-04-25 13:03] VITALS: BP 156/98
--- NOTE | 2019-04-25 13:21 | PHYS DOC ---
Past Medical History Past Medical History: CHF, COPD, DVT, High Cholesterol, Hypertension, Kidney Stone, [place], P.U.D., UTI, Other Additional Past Medical Histor: Pulmonary Embolism, Lupus, Bleeding Gastric Ulcers Past Surgical History: Appendectomy, Cholecystectomy, , Hysterectomy, Tonsillectomy, Other Additional Past Surgical Histo: IVC filter placed and removed Alcohol Use: Rarely Drug Use: None Adult General Chief Complaint Chief Complaint: FOOT INJURY PAIN [facility] HPI Patient is a 43 year old female who presents with complaining of injury to left foot. Patient states she had a injury to left foot while she fell night and developed erythema and pain of dorsal side of left foot that gradually getting worse and rated her pain 10 over 10. Patient denies other injuries or focal neuro deficit. Review of Systems Review of Systems Constitutional: Denies fever or chills [] Eyes: Denies change in visual acuity, redness, or eye pain [] HENT: Denies nasal congestion or sore throat [] Respiratory: Denies cough or shortness of breath [] Cardiovascular: No additional information not addressed in HPI [] GI: Denies abdominal pain, nausea, vomiting, bloody stools or diarrhea [] : Denies dysuria or hematuria [] Musculoskeletal: Denies back pain , reports joint pain [] Integument: Denies rash or skin lesions [] Neurologic: Denies headache, focal weakness or sensory changes [] Endocrine: Denies polyuria or polydipsia [] All other systems were reviewed and found to be within normal limits, except as documented in this note. Current Medications Current Medications Current Medications Medications (Trade) Dose Ordered Sig/Tex Start Time Stop Time Status Last Admin Dose Admin Acetaminophen/ Hydrocodone Bitart (Lortab 5/325) 1 tab 1X ONCE 04/25/19 13:30 04/25/19 13:31 DC 04/25/19 13:22 1 TAB Allergies Allergies Allergies Coded Allergies Type Severity Reaction Last Updated Verified Cephalexin Monohydrate Allergy Intermediate 06/30/17 Yes NSAIDS (Non-Steroidal Anti-Inflamma Allergy Intermediate 09/27/17 Yes Penicillins Allergy Intermediate 06/30/17 Yes iodine Allergy Intermediate 06/30/17 Yes lidocaine Allergy Intermediate 06/30/17 Yes prochlorperazine edisylate Allergy Intermediate 06/30/17 Yes prochlorperazine maleate Allergy Intermediate 06/30/17 Yes sulfamethoxazole Allergy Intermediate 06/30/17 Yes trimethoprim Allergy Intermediate 06/30/17 Yes Physical Exam Physical Exam Constitutional: Well developed, well nourished, mild distress, non-toxic appear ance. [] HENT: Normocephalic, atraumatic. Eyes: PERRLA, EOMI, conjunctiva normal, no discharge. [] Neck: Normal range of motion, no tenderness, supple, no stridor. [] Cardiovascular:Heart rate regular rhythm, no murmur [] Lungs & Thorax: Bilateral breath sounds clear to auscultation [] Extremities: Left foot with moderate erythema and contusion on dorsal forefoot without neurovascular deficit or deformity, , no cyanosis, no clubbing. Neurologic: Alert and oriented X 3, normal motor function, normal sensory function, no focal deficits noted. [] Psychologic: Affect normal, judgement normal, mood normal. [] Current Patient Data Vital Signs Vital Signs Date Time Temp Pulse Resp B/P (MAP) Pulse Ox O2 Delivery O2 Flow Rate FiO2 04/25/19 13:22 16 99 Room Air 04/25/19 13:03 98.4 90 156/98 (117) 98.4 EKG EKG [] Radiology/Procedures Radiology/Procedures [facility] [address] [facility] [place] [address] IMAGING REPORT Signed PATIENT: TRACIE GAONA ACCOUNT: [id number] : 1975 LOCATION: ER AGE: 43 SEX: F EXAM STATUS: PRE ER ORD. PHYSICIAN: MIROSLAVA BARRAGAN MD REASON: injury PROCEDURE: FOOT LEFT 3V EXAM: LEFT FOOT 3 VIEWS. HISTORY: Left foot pain after injury. COMPARISON: None. FINDINGS: Three views of the left foot are obtained. There is soft tissue swelling along the dorsum of the forefoot. No fractures are identified. Alignment is normal. Joint spaces are maintained. IMPRESSION: 1. Soft tissue swelling. No fracture. Electronically signed by: Teo Caballero MD (04/25/2019 1:22 PM) [facility] DICTATED and SIGNED BY: BRANDON CABALLERO MD DATE: 04/25/19 1322 Course & Med Decision Making Course & Med Decision Making Pertinent Labs and Imaging studies reviewed. (See chart for details) Evaluation of patient in ER showed 43-year-old female patient with injury to left fourth with unremarkable x-ray. Onur wrap was applied and crutches was provided and patient was advised to follow-up with her primary care physician. Dragon Disclaimer Dragon Disclaimer This electronic medical record was generated, in whole or in part, using a voice recognition dictation system. Departure Departure Impression: Primary Impression: Contusion of left foot Disposition: HOME, SELF-CARE (at 1414) Condition: IMPROVED Referrals: NO PCP (PCP) Patient Instructions: Crutch Use, Foot Contusion Additional Instructions: Apply ice on affected area Follow-up with your primary care physician in 3-5 days Return to ER if not getting better Scripts Hydrocodone/Apap 5-325 (NORCO 5-325 TABLET) 1 Each Tablet 1 TAB PO PRN Q6HRS PRN for PAIN, #12 TAB 0 Refills Prov: MIROSLAVA BARRAGAN MD 04/25/19 Cyclobenzaprine Hcl (CYCLOBENZAPRINE HCL) 10 Mg Tablet 1 TAB PO TID, #21 TAB Prov: MIROSLAVA BARRAGAN MD 04/25/19 Problem Qualifiers Primary Impression: Contusion of left foot Encounter type: initial encounter Qualified Codes: S90.32XA - Contusion of left foot, initial encounter MIROSLAVA BARRAGAN MD Apr 25, 2019 13:21
--- NOTE | 2019-04-25 13:25 | RAD ---
EXAM: LEFT FOOT 3 VIEWS. HISTORY: Left foot pain after injury. COMPARISON: None. FINDINGS: Three views of the left foot are obtained. There is soft tissue swelling along the dorsum of the forefoot. No fractures are identified. Alignment is normal. Joint spaces are maintained. IMPRESSION: 1. Soft tissue swelling. No fracture. Electronically signed by: Teo Caballero MD (04/25/2019 1:22 PM) [facility]
[2019-04-25] MEDS ORDERED: HYDROcodone/APAP 5/325MG 1 TAB TABLET PO ONE (13:30)
[2019-04-25] MEDS ORDERED: HYDR-3164 PO (14:16)
[2019-04-25] MEDS ORDERED: CYCL10TA2 PO (14:16)
== END 2019-04-25 14:31 | disposition home or self-care (01) ==
LOC: ER 12:50
DX: S90.32XA Contusion of left foot, initial encounter (principal); J44.9 Chronic obstructive pulmonary disease, unspecified; I50.9 Heart failure, unspecified; I25.2 Old myocardial infarction; I11.0 Hypertensive heart disease with heart failure; E78.00 Pure hypercholesterolemia, unspecified; Z86.718 Personal history of other venous thrombosis and embolism; Z87.442 Personal history of urinary calculi; Z90.89 Acquired absence of other organs; Z90.49 Acquired absence of other specified parts of digestive tract; Z98.890 Other specified postprocedural states; Z90.710 Acquired absence of both cervix and uterus; Z88.8 Allergy status to other drugs, medicaments and biological substances; Z88.0 Allergy status to penicillin; Z88.2 Allergy status to sulfonamides; Z88.1 Allergy status to other antibiotic agents; Z88.4 Allergy status to anesthetic agent; Z91.041 Radiographic dye allergy status; W18.39XA Other fall on same level, initial encounter; Y93.89 Activity, other specified; Y92.89 Other specified places as the place of occurrence of the external cause; Y99.8 Other external cause status
CPT/HCPCS: 73630; 99284

== ENCOUNTER 2019-05-20 15:03 | Emergency (ER) | payer SELFPAY ==
[~2019-05-20] VITALS: Ht 172.7 cm; Wt 108.9 kg
--- NOTE | 2019-05-20 15:43 | EKG ---
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
--- NOTE | 2019-05-20 16:10 | PHYS DOC ---
Past Medical History Past Medical History: CHF, COPD, DVT, High Cholesterol, Hypertension, Kidney Stone, [place], P.U.D., Seizure, UTI, Other Additional Past Medical Histor: Pulmonary Embolism, Lupus, Bleeding Gastric Ulcers Past Surgical History: Appendectomy, Cholecystectomy, , Hysterectomy, Tonsillectomy, Other Additional Past Surgical Histo: IVC filter placed and removed Alcohol Use: Rarely Drug Use: None Adult General Chief Complaint Chief Complaint: RIB PAIN HPI HPI 43-year-old female presenting with chest pain that is approximately 9 out of 10. Started 45 minutes ago. Sharp shooting stabbing pain. She has a history of pulmonary embolism is on Eliquis. She has a history of lupus and has a strong family history of heart disease including her father who of a massive heart attack at age 43. She has a history of CHF DVT COPD high cholesterol hypertension history of [place] history of seizures and gastric ulcers. Review of systems is negative for abdominal pain nausea vomiting diaphoresis fevers or chills. All other review of systems negative. ED course: 43-year-old female presenting the emergency department today with chest pain. On arrival EKG was obtained and reviewed by myself which shows sinus rhythm with a tachycardic rate. Right bundle-branch block morphology present. ST segments otherwise are congruent. Not suggestive of acute coronary syndrome. Nonischemic. Chest x-ray ordered along with blood work. Workup is unremarkable. Given strong family history we will admit for cardiology consultation. Current Medications Current Medications Current Medications Medications (Trade) Dose Ordered Sig/Tex Start Time Stop Time Status Last Admin Dose Admin Albuterol/ Ipratropium (Duoneb) 3 ml 1X ONCE 05/20/19 17:00 05/20/19 17:01 Allergies Allergies Allergies Coded Allergies Type Severity Reaction Last Updated Verified Cephalexin Monohydrate Allergy Intermediate 06/30/17 Yes NSAIDS (Non-Steroidal Anti-Inflamma Allergy Intermediate 09/27/17 Yes Penicillins Allergy Intermediate 06/30/17 Yes iodine Allergy Intermediate 06/30/17 Yes lidocaine Allergy Intermediate 06/30/17 Yes prochlorperazine edisylate Allergy Intermediate 06/30/17 Yes prochlorperazine maleate Allergy Intermediate 06/30/17 Yes sulfamethoxazole Allergy Intermediate 06/30/17 Yes trimethoprim Allergy Intermediate 06/30/17 Yes Physical Exam Physical Exam Constitutional: Well developed, well nourished, no acute distress, non-toxic appearance. [] HENT: Normocephalic, atraumatic, bilateral external ears normal, oropharynx moist, no oral exudates, nose normal. [] Eyes: PERRLA, EOMI, conjunctiva normal, no discharge. [] Neck: Normal range of motion, no tenderness, supple, no stridor. [] Cardiovascular:Heart rate regular rhythm, no murmur [] Lungs & Thorax: Bilateral breath sounds clear to auscultation [] Abdomen: Bowel sounds normal, soft, no tenderness, no masses, no pulsatile masses. [] Skin: Warm, dry, no erythema, no rash. [] Back: No tenderness, no CVA tenderness. [] Extremities: No tenderness, no cyanosis, no clubbing, ROM intact, no edema. [] Neurologic: Alert and oriented X 3, normal motor function, normal sensory function, no focal deficits noted. [] Psychologic: Affect normal, judgement normal, mood normal. [] Current Patient Data Vital Signs Vital Signs Date Time Temp Pulse Resp B/P (MAP) Pulse Ox O2 Delivery O2 Flow Rate FiO2 05/20/19 15:05 98.5 98 18 125/68 (87) 97 Room Air 98.5 Lab Values Laboratory Tests Test 05/20/19 16:20 White Blood Count 9.6 x10^3/uL (4.0-11.0) Red Blood Count 4.21 x10^6/uL (3.50-5.40) Hemoglobin 13.9 g/dL (12.0-15.5) Hematocrit 39.4 % (36.0-47.0) Mean Corpuscular Volume 94 fL (79-100) Mean Corpuscular Hemoglobin 33 pg (25-35) Mean Corpuscular Hemoglobin Concent 35 g/dL (31-37) Red Cell Distribution Width 13.3 % (11.5-14.5) Platelet Count 518 x10^3/uL (140-400) H Neutrophils (%) (Auto) 55 % (31-73) Lymphocytes (%) (Auto) 33 % (24-48) Monocytes (%) (Auto) 7 % (0-9) Eosinophils (%) (Auto) 4 % (0-3) H Basophils (%) (Auto) 1 % (0-3) Neutrophils # (Auto) 5.3 x10^3/uL (1.8-7.7) Lymphocytes # (Auto) 3.2 x10^3/uL (1.0-4.8) Monocytes # (Auto) 0.7 x10^3/uL (0.0-1.1) Eosinophils # (Auto) 0.3 x10^3/uL (0.0-0.7) Basophils # (Auto) 0.1 x10^3/uL (0.0-0.2) D-Dimer (Rozina) < 0.27 ug/mlFEU Sodium Level 141 mmol/L (136-145) Potassium Level 4.1 mmol/L (3.5-5.1) Chloride Level 105 mmol/L (98-107) Carbon Dioxide Level 23 mmol/L (21-32) Anion Gap 13 (6-14) Blood Urea Nitrogen 17 mg/dL (7-20) Creatinine 1.0 mg/dL (0.6-1.0) Estimated GFR (Cockcroft-Gault) 60.5 Glucose Level 106 mg/dL (70-99) H Calcium Level 10.4 mg/dL (8.5-10.1) H Total Bilirubin 0.3 mg/dL (0.2-1.0) Direct Bilirubin 0.1 mg/dL (0.0-0.2) Aspartate Amino Transferase (AST) 10 U/L (15-37) L Alanine Aminotransferase (ALT) 21 U/L (14-59) Alkaline Phosphatase 67 U/L (46-116) Troponin I Quantitative < 0.017 ng/mL (0.000-0.055) Total Protein 8.6 g/dL (6.4-8.2) H Albumin 4.5 g/dL (3.4-5.0) Lipase 84 U/L (73-393) Serum Test, Qualitative Negative (NEG) Laboratory Tests 05/20/19 16:20 Laboratory Tests 05/20/19 16:20 EKG EKG [] Radiology/Procedures Radiology/Procedures [] Course & Med Decision Making Course & Med Decision Making Pertinent Labs and Imaging studies reviewed. (See chart for details) [] Dragon Disclaimer Dragon Disclaimer This electronic medical record was generated, in whole or in part, using a voice recognition dictation system. Departure Departure Impression: Primary Impression: Chest pain Disposition: ADMITTED INPATIENT Admitting Physician: JERO Condition: STABLE Referrals: NO PCP (PCP) YFN EDWARDS MD May 20, 2019 16:10
--- NOTE | 2019-05-20 16:13 | RAD ---
CHEST AP ONLY History: Chest pain Comparison: February 14, 2018 Findings: Single view of the chest is submitted. There is no infiltrate, pneumothorax, or effusion. The pericardial cardiac silhouette is within normal limits in size. Impression: 1. There is no radiographic evidence of acute cardiopulmonary disease. Electronically signed by: Prudencio Coates MD (05/20/2019 4:10 PM) [id number]
[2019-05-20 16:31] LABS: BASO # 0.1 x10^3/uL (0.0-0.2); BASO % 1 % (0-3); EOS # 0.3 x10^3/uL (0.0-0.7); EOS % 4 % (0-3); HEMATOCRIT 39.4 % (36.0-47.0); HEMOGLOBIN 13.9 g/dL (12.0-15.5); LYMPH # 3.2 x10^3/uL (1.0-4.8); LYMPH % 33 % (24-48); MEAN CORPUSCULAR HEMOGLOBIN 33 pg (25-35); MEAN CORPUSCULAR HGB CONC 35 g/dL (31-37); MEAN CORPUSCULAR VOLUME 94 fL (79-100); MONO # 0.7 x10^3/uL (0.0-1.1); MONO % 7 % (0-9); NEUT # 5.3 x10^3/uL (1.8-7.7); NEUT % 55 % (31-73); PLATELET COUNT 518 x10^3/uL (140-400); RED BLOOD COUNT 4.21 x10^6/uL (3.50-5.40); RED CELL DISTRIBUTION WIDTH 13.3 % (11.5-14.5); WHITE BLOOD COUNT 9.6 x10^3/uL (4.0-11.0)
[2019-05-20 16:42] LABS: PREG TEST PT QUAL NEGATIVE (NEG)
[2019-05-20 16:43] LABS: CALCIUM 10.4 mg/dL (8.5-10.1); GFR 60.5; POTASSIUM 4.1 mmol/L (3.5-5.1)
[2019-05-20 16:49] LABS: ALBUMIN 4.5 g/dL (3.4-5.0); DIRECT BILIRUBIN 0.1 mg/dL (0.0-0.2); TOTAL BILIRUBIN 0.3 mg/dL (0.2-1.0); TOTAL PROTEIN 8.6 g/dL (6.4-8.2)
[2019-05-20] MEDS ORDERED: IPRATRPIUM/ALBUTEROL 0.5/2.5MG 3 ML NEBU. NEB ONE (17:00)
--- NOTE | 2019-05-20 17:02 | PDOC1 ---
History and Physical Date of Admission Date of Admission DATE: 05/20/19 TIME: 17:02 Identification/Chief Complaint Chief Complaint Chest pain Source Source: Patient History of Present Illness History of Present Illness Ms Goncalves is a 43-year-old female w/ PMHx CHF, COPD, DVT, High Cholesterol, Hypertension, Kidney Stone, [place], P.U.D., Seizure, Pulmonary Embolism, Lupus who presented to the ED with left axillary chest pain she rates as sharp at a 9 out of 10. She notes it radiates into her jaw and her left arm. Pain is present at rest, nothing improves or worsens it. She has been offered NTG, refused this, states she doesn't want a headache. She c/o related shortness of breath, states she would not like albuterol. She notes she is allergic to ASA. She is worried about her heart as she reports that her father of a massive heart attack at age 43. She denies any abdominal pain nausea vomiting diaphoresis fevers or chills. EKG is sinus rhythm with a tachycardic rate. Right bundle-branch block morphology present. ST segments otherwise are congruent. Not suggestive of acute coronary syndrome. Nonischemic. Chest x-ray is unremarkable. Troponin initially negative. Given strong family history we have advised her of desire to admit for cardiology consultation. Seen in ED Past Medical History Cardiovascular: No pertinent hx Pulmonary: No pertinent hx GI: GERD, Gastritis, Other Heme/Onc: No pertinent hx Hepatobiliary: No pertinent hx Psych: No pertinent hx Musculoskeletal: low back pain Endocrine: No pertinent hx Family History Family History: Alzheimer's Disease Social History Smoke: No ALCOHOL: rare Drugs: None Current Problem List Problem List Problems Medical Problems: (1) Chest pain Status: Acute Current Medications Current Medications Current Medications Albuterol/ Ipratropium (Duoneb) 3 ml 1X ONCE NEB ; Start 05/20/19 at 17:00; Stop 05/20/19 at 17:01; Status DC Active Scripts Active [place] 5-325 Tablet (Acetaminophen/Hydrocodone Bitart) 1 Each Tablet 1 Tab PO PRN Q6HRS PRN Cyclobenzaprine Hcl 10 Mg Tablet 1 Tab PO TID Ondansetron Odt (Ondansetron) 4 Mg Tab.rapdis 1 Tab PO PRN Q6-8HRS PRN Cyclobenzaprine Hcl 10 Mg Tablet 1 Tab PO TID PRN Diclofenac Sodium 50 Mg Tablet.dr 1 Tab PO BID Clindamycin Hcl 300 Mg Capsule 1 Cap PO TID Pyridium (Phenazopyridine Hcl) 200 Mg Tablet 200 Mg PO TID [place] 5-325 Tablet (Acetaminophen/Hydrocodone Bitart) 1 Each Tablet 1 Tab PO PRN Q6HRS PRN Macrobid 100 Mg Capsule (Nitrofurantoin Monohyd/M-Cryst) 100 Mg Capsule 1 Cap PO BID [place] 5-325 Tablet (Acetaminophen/Hydrocodone Bitart) 1 Each Tablet 1 Tab PO Q4- 6HRS PRN Zofran Odt (Ondansetron) 4 Mg Tab.rapdis 1 Tab SL Q6HRS PRN Ultram (Tramadol Hcl) 50 Mg Tablet 1 Tab PO Q6HRS Flagyl (Metronidazole) 500 Mg Tablet 500 Mg PO TID Cipro (Ciprofloxacin Hcl) 500 Mg Tablet 1 Tab PO BID Tylenol With Codeine #3 Tablet (Acetaminophen/Codeine Phosphate) 1 Each Tablet 1 Tab PO PRN Q4HRS PRN Flomax (Tamsulosin Hcl) 0.4 Mg Cap.er.24h 1 Cap PO DAILY Zofran Odt (Ondansetron) 4 Mg Tab.rapdis 1 Tab SL Q8HRS PRN Reported Lasix (Furosemide) 40 Mg Tablet 40 Mg PO DAILY Clonazepam 1 Mg Tablet 1 Mg PO TID Risperdal (Risperidone) 4 Mg Tablet 5 Mg PO BID Prozac (Fluoxetine Hcl) 40 Mg Capsule 1 Cap PO DAILY Ambien (Zolpidem Tartrate) 10 Mg Tablet 10 Mg PO HS PRN Lisinopril 20 Mg Tablet 1 Tab PO DAILY Allergies Allergies: Coded Allergies: Cephalexin Monohydrate (Verified Allergy, Intermediate, 06/30/17) NSAIDS (Non-Steroidal Anti-Inflamma (Verified Allergy, Intermediate, 09/27/17) TORADOL [place] Penicillins (Verified Allergy, Intermediate, 06/30/17) iodine (Verified Allergy, Intermediate, 06/30/17) lidocaine (Verified Allergy, Intermediate, 06/30/17) prochlorperazine edisylate (Verified Allergy, Intermediate, 06/30/17) prochlorperazine maleate (Verified Allergy, Intermediate, 06/30/17) sulfamethoxazole (Verified Allergy, Intermediate, 06/30/17) trimethoprim (Verified Allergy, Intermediate, 06/30/17) ROS General: YES: Fatigue, Malaise; No: Chills, Night Sweats, Appetite, Other PSYCHOLOGICAL ROS: YES: Anxiety; No: Behavioral Disorder, Concentration difficultie, Decreased libido, Depression, Disorientation, Hallucinations, Hostility, Irritablity, Memory difficulties, Mood Swings, Obsessive thoughts, Physical abuse, Sexual abuse, Sleep disturbances, Suicidal ideation, Other Eyes: No Blurry vision, No Decreased vision, No Double vision, No Dry eyes, No Excessive tearing, No Eye Pain, No Itchy Eyes, No Loss of vision, No Photophobia, No Scotomata, No Uses contacts, No Uses glasses, No Other HEENT: No: Heacaches, Visual Changes, Hearing change, Nasal congestion, Nasal discharge, Oral lesions, Sinus pain, Sore Throat, Epistaxis, Sneezing, Snoring, Tinnitus, Vertigo, Vocal changes, Other ALLERGY AND IMMUNOLOGY: No: Hives, Insect Bite Sensitivity, Itchy/Watery Eyes, Nasal Congestion, Post Nasal Drip, Seasonal Allergies, Other Hematological and Lymphatic: YES: Blood Clots; No: Bleeding Problems, Blood Transfusions, Brusing, Night Sweats, Pallor, Swollen Lymph Nodes, Other ENDOCRINE: No: Breast Changes, Galactorrhea, Hair Pattern Changes, Hot Flashes, Malaise/lethargy, Mood Swings, Palpitations, Polydipsia/polyuria, Skin Changes, Temperature Intolerance, Unexpected Weight Changes, Other Breast: No New/Changing Breast Lumps, No Nipple changes, No Nipple discharge, No Other Respiratory: YES: Shortness of breath, SOB with excertion; No: Cough, Hemoptysis, Orthopnea, Pleuritic Pain, Sputum Changes, Stridor, Tachypnea, Wheezing, Other Cardiovascular: yes Chest Pain; No Palpitations, No Orthopnea, No Paroxysmal Noc. Dyspnea, No Edema, No Lt Headedness, No Other Gastrointestinal: No Nausea, No Vomiting, No Abdominal Pain, No Diarrhea, No Constipation, No Melena, No Hematochezia, No Other Genitourinary: No Dysuria, No Frequency, No Incontinence, No Hematuria, No Retention, No Discharge, No Urgency, No Pain, No Flank Pain, No Other, No , No , No , No , No , No , No Musculoskeletal: No Gait Disturbance, No Joint Pain, No Joint Stiffness, No Joint Swelling, No Muscle Pain, No Muscular Weakness, No Pain In:, No Swelling In:, No Other Neurological: No Behavorial Changes, No Bowel/Bladder ControlChng, No Confusion, No Dizziness, No Gait Disturbance, No Headaches, No Impaired Coord/balance, No Memory Loss, No Numbness/Tingling, No Seizures, No Speech Problems, No Tremors, No Visual Changes, No Weakness, No Other Skin: No Dry Skin, No Eczema, No Hair Changes, No Lumps, No Mole Changes, No Mottling, No Nail Changes, No Pruritus, No Rash, No Skin Lesion Changes, No Other, No Acne Physical Exam General: Alert, Oriented X3, Cooperative, No acute distress HEENT: Atraumatic, PERRLA, EOMI, Mucous membr. moist/pink Lungs: Other (Scattered wheezes) Heart: S1S2, RRR, no gallops, no murmurs, other (Pain to palpation of left axilla) Abdomen: Normal bowel sounds, Soft, No tenderness, No hepatosplenomegaly, No masses Extremities: No clubbing, No cyanosis, No edema, Normal pulses, No tenderness/swelling Skin: No rashes, No breakdown, No significant lesion Neuro: Normal gait, Normal speech, Strength at 5/5 X4 ext, Normal tone, Sensation intact, Cranial nerves 3-12 NL, Reflexes 2+ Vitals Vitals Vital Signs Date Time Temp Pulse Resp B/P (MAP) Pulse Ox O2 Delivery O2 Flow Rate FiO2 05/20/19 15:05 98.5 98 18 125/68 (87) 97 Room Air 98.5 Labs Labs Laboratory Tests Test 05/20/19 16:20 White Blood Count 9.6 x10^3/uL (4.0-11.0) Red Blood Count 4.21 x10^6/uL (3.50-5.40) Hemoglobin 13.9 g/dL (12.0-15.5) Hematocrit 39.4 % (36.0-47.0) Mean Corpuscular Volume 94 fL (79-100) Mean Corpuscular Hemoglobin 33 pg (25-35) Mean Corpuscular Hemoglobin Concent 35 g/dL (31-37) Red Cell Distribution Width 13.3 % (11.5-14.5) Platelet Count 518 x10^3/uL (140-400) Neutrophils (%) (Auto) 55 % (31-73) Lymphocytes (%) (Auto) 33 % (24-48) Monocytes (%) (Auto) 7 % (0-9) Eosinophils (%) (Auto) 4 % (0-3) Basophils (%) (Auto) 1 % (0-3) Neutrophils # (Auto) 5.3 x10^3/uL (1.8-7.7) Lymphocytes # (Auto) 3.2 x10^3/uL (1.0-4.8) Monocytes # (Auto) 0.7 x10^3/uL (0.0-1.1) Eosinophils # (Auto) 0.3 x10^3/uL (0.0-0.7) Basophils # (Auto) 0.1 x10^3/uL (0.0-0.2) D-Dimer (Rozina) < 0.27 ug/mlFEU Sodium Level 141 mmol/L (136-145) Potassium Level 4.1 mmol/L (3.5-5.1) Chloride Level 105 mmol/L (98-107) Carbon Dioxide Level 23 mmol/L (21-32) Anion Gap 13 (6-14) Blood Urea Nitrogen 17 mg/dL (7-20) Creatinine 1.0 mg/dL (0.6-1.0) Estimated GFR (Cockcroft-Gault) 60.5 Glucose Level 106 mg/dL (70-99) Calcium Level 10.4 mg/dL (8.5-10.1) Total Bilirubin 0.3 mg/dL (0.2-1.0) Direct Bilirubin 0.1 mg/dL (0.0-0.2) Aspartate Amino Transf (AST/SGOT) 10 U/L (15-37) Alanine Aminotransferase (ALT/SGPT) 21 U/L (14-59) Alkaline Phosphatase 67 U/L (46-116) Troponin I Quantitative < 0.017 ng/mL (0.000-0.055) Total Protein 8.6 g/dL (6.4-8.2) Albumin 4.5 g/dL (3.4-5.0) Lipase 84 U/L (73-393) Serum Test, Qualitative Negative (NEG) Laboratory Tests Test 05/20/19 16:20 White Blood Count 9.6 x10^3/uL (4.0-11.0) Red Blood Count 4.21 x10^6/uL (3.50-5.40) Hemoglobin 13.9 g/dL (12.0-15.5) Hematocrit 39.4 % (36.0-47.0) Mean Corpuscular Volume 94 fL (79-100) Mean Corpuscular Hemoglobin 33 pg (25-35) Mean Corpuscular Hemoglobin Concent 35 g/dL (31-37) Red Cell Distribution Width 13.3 % (11.5-14.5) Platelet Count 518 x10^3/uL (140-400) Neutrophils (%) (Auto) 55 % (31-73) Lymphocytes (%) (Auto) 33 % (24-48) Monocytes (%) (Auto) 7 % (0-9) Eosinophils (%) (Auto) 4 % (0-3) Basophils (%) (Auto) 1 % (0-3) Neutrophils # (Auto) 5.3 x10^3/uL (1.8-7.7) Lymphocytes # (Auto) 3.2 x10^3/uL (1.0-4.8) Monocytes # (Auto) 0.7 x10^3/uL (0.0-1.1) Eosinophils # (Auto) 0.3 x10^3/uL (0.0-0.7) Basophils # (Auto) 0.1 x10^3/uL (0.0-0.2) D-Dimer (Rozina) < 0.27 ug/mlFEU Sodium Level 141 mmol/L (136-145) Potassium Level 4.1 mmol/L (3.5-5.1) Chloride Level 105 mmol/L (98-107) Carbon Dioxide Level 23 mmol/L (21-32) Anion Gap 13 (6-14) Blood Urea Nitrogen 17 mg/dL (7-20) Creatinine 1.0 mg/dL (0.6-1.0) Estimated GFR (Cockcroft-Gault) 60.5 Glucose Level 106 mg/dL (70-99) Calcium Level 10.4 mg/dL (8.5-10.1) Total Bilirubin 0.3 mg/dL (0.2-1.0) Direct Bilirubin 0.1 mg/dL (0.0-0.2) Aspartate Amino Transf (AST/SGOT) 10 U/L (15-37) Alanine Aminotransferase (ALT/SGPT) 21 U/L (14-59) Alkaline Phosphatase 67 U/L (46-116) Troponin I Quantitative < 0.017 ng/mL (0.000-0.055) Total Protein 8.6 g/dL (6.4-8.2) Albumin 4.5 g/dL (3.4-5.0) Lipase 84 U/L (73-393) Serum Test, Qualitative Negative (NEG) VTE Prophylaxis Ordered VTE Prophylaxis Devices: No VTE Pharmacological Prophylaxi: Yes Assessment/Plan Assessment/Plan A/P: Chest pain - initial w/u negative for ACS, however she is high risk, advised admission. She has refused most treatment, asking when she can get morphine. I have advised her nitroglycerin is indicated. Hypercalcemia - 10.4. Would give IVF and lasix COPD - some wheezes - offered nebulizers, she refuses DVT - d dimer negative, have advised she should continue eliquis, but could consider cessation if d dimer remains negative in the future High Cholesterol - cont statin Hypertension - cont meds P.U.D. - on PPI FEN - Cardiac diet PPX - eliquis FULL CODE Dispo - after d/w patient and ED staff she has made it clear she would like to leave AMA, is of sound mind JONEL GOVEA MD May 20, 2019 17:02
[2019-05-20 17:30] VITALS: BP 118/66
[2019-05-20] MEDS ORDERED: ACETAMINOPHEN 325 MG TABLET. PO ONE (17:45)
[2019-05-20] MEDS ORDERED: IV NORMAL SALINE 1000ML BAG 1,000 ML IV SCH (17:59)
== END 2019-05-20 18:21 | disposition left against medical advice (07) ==
LOC: ER 15:03
DX: R07.89 Other chest pain (principal); R00.0 Tachycardia, unspecified; I11.0 Hypertensive heart disease with heart failure; J44.9 Chronic obstructive pulmonary disease, unspecified; E78.00 Pure hypercholesterolemia, unspecified; I25.2 Old myocardial infarction; Z86.718 Personal history of other venous thrombosis and embolism; Z87.442 Personal history of urinary calculi; Z86.711 Personal history of pulmonary embolism; Z90.89 Acquired absence of other organs; Z90.49 Acquired absence of other specified parts of digestive tract; Z98.890 Other specified postprocedural states; Z90.710 Acquired absence of both cervix and uterus; Z88.1 Allergy status to other antibiotic agents; Z88.8 Allergy status to other drugs, medicaments and biological substances; Z88.0 Allergy status to penicillin; Z88.2 Allergy status to sulfonamides; Z91.041 Radiographic dye allergy status
CPT/HCPCS: 36415; 71045; 80048; 80076; 83690; 84484; 84703; 85025; 85379; 93005; 99285-25

== ENCOUNTER 2019-08-12 23:01 | Emergency (ER) | payer SELFPAY ==
[~2019-08-12] VITALS: Ht 172.7 cm; Wt 107.0 kg
[~2019-08-12 23:01] MED LIST changes: -CLON1TAB11 PO; +CLONAZEPAM1 MG PO
[2019-08-12 23:29] VITALS: BP 120/72
[2019-08-12] MEDS ORDERED: HYDROcodone/APAP 5/325MG 1 TAB TABLET PO ONE (23:45)
[2019-08-13] MEDS ORDERED: GABA600T7 PO (00:53)
[2019-08-13] MEDS ORDERED: METH4TAB2 PO (00:53)
--- NOTE | 2019-08-13 00:53 | PHYS DOC ---
Past Medical History Past Medical History: CHF, COPD, DVT, High Cholesterol, Hypertension, Kidney Stone, [place], P.U.D., Seizure, UTI, Other Additional Past Medical Histor: Pulmonary Embolism, Lupus, Bleeding Gastric Ulcers (BALA FAJARDO APRN) Past Surgical History: Appendectomy, Cholecystectomy, , Hysterectomy, Tonsillectomy, Other Additional Past Surgical Histo: IVC filter placed and removed (BALA FAJARDO APRN) Alcohol Use: Rarely Drug Use: None (BALA FAJARDO APRN) Attending Signature I have participated in the care of this patient and I have reviewed and agree with all pertinent clinical information above including history, exam, and recommendations. (EFRA CHO MD) Adult General Chief Complaint Chief Complaint: ANKLE PROBLEM HPI HPI Patient is a 43 year old female who presents with 8 out of 10 throbbing intermittent right medial ankle pain that began yesterday after a 50 pound dry accidentally fell on her ankle. Patient describes the pain as throbbing and in termittent worse on weight bearing. She states she has tried [id number] remedies including Tylenol with no relief. (BALA FAJARDO APRN) Review of Systems Review of Systems Constitutional: Denies fever or chills [] Musculoskeletal: Reports right ankle pain Integument: Denies rash or skin lesions [] Neurologic: Denies headache, focal weakness or sensory changes [] All other systems were reviewed and found to be within normal limits, except as documented in this note. (BALA FAJARDO APRN) Current Medications Current Medications Current Medications Medications (Trade) Dose Ordered Sig/Tex Start Time Stop Time Status Last Admin Dose Admin Acetaminophen/ Hydrocodone Bitart ([place] 5/325) 2 tab 1X ONCE 08/12/19 23:45 08/12/19 23:46 DC 08/12/19 23:49 2 TAB (EFRA CHO MD) Allergies Allergies Allergies Coded Allergies Type Severity Reaction Last Updated Verified Cephalexin Monohydrate Allergy Intermediate 06/30/17 Yes NSAIDS (Non-Steroidal Anti-Inflamma Allergy Intermediate 09/27/17 Yes Penicillins Allergy Intermediate 06/30/17 Yes iodine Allergy Intermediate 06/30/17 Yes lidocaine Allergy Intermediate 06/30/17 Yes prochlorperazine edisylate Allergy Intermediate 06/30/17 Yes prochlorperazine maleate Allergy Intermediate 06/30/17 Yes sulfamethoxazole Allergy Intermediate 06/30/17 Yes trimethoprim Allergy Intermediate 06/30/17 Yes (EFRA CHO MD) Physical Exam Physical Exam Constitutional: Well developed, well nourished, no acute distress, non-toxic appearance. [] Skin: Warm, dry, no erythema, no rash. [] Back: No tenderness, no CVA tenderness. [] Extremities: Right ankle with no obvious deformity. Bruising noted on the medial aspect of the ankle. Tenderness on palpation of the right medial ankle. Full range of motion to the right ankle and foot. +2 right pedal pulse. Cap refill less than 2 seconds the right toes. Sensation intact to the right lower extremity. Neurologic: Alert and oriented X 3, normal motor function, normal sensory function, no focal deficits noted. [] Psychologic: Affect normal, judgement normal, mood normal. [] (BALA FAJARDO APRN) Current Patient Data Vital Signs Vital Signs Date Time Temp Pulse Resp B/P (MAP) Pulse Ox O2 Delivery O2 Flow Rate FiO2 08/13/19 01:00 18 97 08/12/19 23:29 97.9 120/72 (88) Room Air 97.9 (EFRA CHO MD) EKG EKG [] (BALA FAJARDO APRN) Radiology/Procedures Radiology/Procedures [] (BALA FAJARDO APRN) Course & Med Decision Making Course & Med Decision Making Pertinent Labs and Imaging studies reviewed. (See chart for details) This is a 43-year-old female patient presented to the ED today with right ankle pain that began after she accidentally dropped a 50 pound dry on her ankle. Right ankle x-rays are negative for any acute findings. Crutches provided. She has a removable right for the right ankle. Follow-up with orthopedic doctor in one week. (BALA FAJARDO APRN) Dragon Disclaimer Dragon Disclaimer This electronic medical record was generated, in whole or in part, using a voice recognition dictation system. (BALA FAJARDO APRN) Departure Departure Impression: Primary Impression: Contusion of right ankle Disposition: HOME, SELF-CARE Condition: STABLE Referrals: NO PCP (PCP) NIKUNJ VILLEGAS II, MD Follow-up in one week Patient Instructions: Contusion Additional Instructions: You were evaluated in the medicine for right ankle contusion. Try to ice and elevate the extremity. Follow-up with orthopedic doctor in one week. Scripts Methylprednisolone (MEDROL) 4 Mg Tab.ds.pk 1 PKG PO UD, #1 PKG Prov: BALA FAJARDO SHARRON 08/13/19 Gabapentin (GABAPENTIN) 600 Mg Tablet 600 MG PO TID for NEUROGENIC PAIN, #12 TAB Prov: BALA FAJARDO APRN 08/13/19 Problem Qualifiers Primary Impression: Contusion of right ankle Encounter type: initial encounter Qualified Codes: S90.01XA - Contusion of right ankle, initial encounter BALA FAJARDO APRN Aug 13, 2019 00:53 EFRA CHO MD Aug 13, 2019 04:07
--- NOTE | 2019-08-13 04:27 | RAD ---
EXAM: Right ankle 3 views. HISTORY: Right ankle pain after injury. COMPARISON: None. FINDINGS: Three views of the right ankle are obtained. There is mild soft tissue swelling medially and laterally. No fractures are identified. Alignment is normal. Joint spaces are maintained. IMPRESSION: 1. Soft tissue swelling. No fracture. Electronically signed by: Teo Caballero MD (08/13/2019 4:24 AM) [id number]
== END 2019-08-13 01:07 | disposition home or self-care (01) ==
LOC: ER 23:01
DX: S90.01XA Contusion of right ankle, initial encounter (principal); Z88.0 Allergy status to penicillin; Z88.4 Allergy status to anesthetic agent; Z88.1 Allergy status to other antibiotic agents; Z88.2 Allergy status to sulfonamides; Z88.6 Allergy status to analgesic agent; Z88.8 Allergy status to other drugs, medicaments and biological substances; E78.00 Pure hypercholesterolemia, unspecified; I11.0 Hypertensive heart disease with heart failure; I50.9 Heart failure, unspecified; I25.2 Old myocardial infarction; J44.9 Chronic obstructive pulmonary disease, unspecified; Z86.718 Personal history of other venous thrombosis and embolism; W18.39XA Other fall on same level, initial encounter; Y93.89 Activity, other specified; Y92.89 Other specified places as the place of occurrence of the external cause; Y99.8 Other external cause status
CPT/HCPCS: 73610; 99284

== ENCOUNTER 2019-10-14 20:07 | Emergency (ER) | payer SELFPAY ==
[~2019-10-14] VITALS: Ht 172.7 cm; Wt 110.2 kg
[~2019-10-14 20:07] MED LIST changes: +GABA600T7 PO; +METH4TAB2 PO
[2019-10-14 20:20] VITALS: BP 131/101
[2019-10-14 21:20] LABS: BILIRUBIN,URINE NEGATIVE (NEG); CLARITY,URINE CLEAR; COLOR,URINE YELLOW; NITRITE,URINE NEGATIVE (NEG); PH,URINE 5.5; PROTEIN,URINE NEGATIVE (NEG-TRACE); UROBILINOGEN,URINE 0.2 mg/dL (0.2 mg/dL)
[2019-10-14 21:26] LABS: BACTERIA,URINE FEW /HPF (0-FEW); RBC,URINE OCC /HPF (0-2); SQUAMOUS EPITHELIAL CELL,UR OCC /LPF
[2019-10-14 23:12] LABS: BASO # 0.1 x10^3/uL (0.0-0.2); BASO % 1 % (0-3); EOS # 0.5 x10^3/uL (0.0-0.7); EOS % 4 % (0-3); HEMATOCRIT 37.7 % (36.0-47.0); HEMOGLOBIN 12.9 g/dL (12.0-15.5); LYMPH # 4.7 x10^3/uL (1.0-4.8); LYMPH % 42 % (24-48); MEAN CORPUSCULAR HEMOGLOBIN 32 pg (25-35); MEAN CORPUSCULAR HGB CONC 34 g/dL (31-37); MEAN CORPUSCULAR VOLUME 94 fL (79-100); MONO # 0.8 x10^3/uL (0.0-1.1); MONO % 7 % (0-9); NEUT # 5.1 x10^3/uL (1.8-7.7); NEUT % 46 % (31-73); PLATELET COUNT 420 x10^3/uL (140-400); RED BLOOD COUNT 4.03 x10^6/uL (3.50-5.40); RED CELL DISTRIBUTION WIDTH 13.3 % (11.5-14.5); WHITE BLOOD COUNT 11.1 x10^3/uL (4.0-11.0)
[2019-10-14 23:25] LABS: CALCIUM 9.2 mg/dL (8.5-10.1); CREATININE 0.9 mg/dL (0.6-1.0)
[2019-10-14 23:28] LABS: ALBUMIN/GLOBULIN RATIO 1.1 (1.0-1.7); TOTAL BILIRUBIN 0.2 mg/dL (0.2-1.0); TOTAL PROTEIN 7.8 g/dL (6.4-8.2)
[2019-10-14] MEDS ORDERED: SUMAtriptan SUCC 6 MG/0.5 ML VIAL. SQ ONE (23:30)
[2019-10-14] MEDS ORDERED: METOCLOPRAMIDE HCL 10 MG/2 ML VIAL. IVP ONE (23:30)
--- NOTE | 2019-10-14 23:36 | PHYS DOC ---
Past Medical History Past Medical History: CHF, COPD, DVT, High Cholesterol, Hypertension, Kidney Stone, [place], P.U.D., Seizure, UTI, Other Additional Past Medical Histor: Pulmonary Embolism, Lupus, Bleeding Gastric Ulcers (MAGDY PEOPLES APRN) Past Surgical History: Appendectomy, Cholecystectomy, , Hysterectomy, Tonsillectomy, Other Additional Past Surgical Histo: IVC filter placed and removed (MAGDY PEOPLES APRN) Alcohol Use: Rarely Drug Use: None (MAGDY PEOPLES APRN) Attending Signature I have participated in the care of this patient and I have reviewed and agree with all pertinent clinical information above including history, exam, and recommendations. (EFRA CHO MD) Adult General Chief Complaint Chief Complaint: HEADACHE HPI HPI Patient is a 44 year old Female who presents with states that she has had migraine and seizure history. Patient states it's been a while she's had a migraine. Patient states she is taking all of her medications including her seizure medications as prescribed. Patient states she is having a headache that came on on for 4 days as at the top of her head as worsening usual. Patient states usually when she has migraine she sees spots but this time she seen blurred vision. Patient states she has been taking Excedrin and Benadryl. Patient's rating her pain an 8 out of 10. Patient is allergic to NSAIDs and Compazine. (MAGDY PEOPLES APRN) Review of Systems Review of Systems Eyes: Blurry change in visual acuity, redness, or eye pain [] GI: Denies abdominal pain, +nausea, denies vomiting, bloody stools or diarrhea [] Musculoskeletal: Denies back pain or joint pain [] Neurologic: headache, denies focal weakness or sensory changes [] All other systems were reviewed and found to be within normal limits, except as documented in this note. (MAGDY PEOPLES APRN) Current Medications Current Medications Current Medications Medications (Trade) Dose Ordered Sig/Tex Start Time Stop Time Status Last Admin Dose Admin Metoclopramide HCl (Reglan Vial) 10 mg 1X ONCE 10/14/19 23:30 10/14/19 23:31 DC 10/14/19 23:32 10 MG Sumatriptan Succinate (Imitrex) 6 mg 1X ONCE 10/14/19 23:30 10/14/19 23:31 DC (EFRA CHO MD) Allergies Allergies Allergies Coded Allergies Type Severity Reaction Last Updated Verified Cephalexin Monohydrate Allergy Intermediate 06/30/17 Yes NSAIDS (Non-Steroidal Anti-Inflamma Allergy Intermediate 09/27/17 Yes Penicillins Allergy Intermediate 06/30/17 Yes iodine Allergy Intermediate 06/30/17 Yes lidocaine Allergy Intermediate 06/30/17 Yes prochlorperazine edisylate Allergy Intermediate 06/30/17 Yes prochlorperazine maleate Allergy Intermediate 06/30/17 Yes sulfamethoxazole Allergy Intermediate 06/30/17 Yes trimethoprim Allergy Intermediate 06/30/17 Yes (EFRA CHO MD) Physical Exam Physical Exam Constitutional: Well developed, well nourished, no acute distress, non-toxic appearance. [] HENT: Normocephalic, atraumatic, bilateral external ears normal, oropharynx moist, no oral exudates, nose normal. [] Eyes: PERRLA, EOMI, conjunctiva normal, no discharge. Photophobia [] Neck: Normal range of motion, no tenderness, supple, no stridor. [] Cardiovascular:Heart rate regular rhythm, no murmur [] Lungs & Thorax: Bilateral breath sounds clear to auscultation [] Abdomen: Bowel sounds normal, soft, no tenderness, no masses, no pulsatile masses. [] Skin: Warm, dry, no erythema, no rash. [] Back: No tenderness, no CVA tenderness. [] Extremities: No tenderness, no cyanosis, no clubbing, ROM intact, no edema. [] Neurologic: Alert and oriented X 3, normal motor function, normal sensory function, no focal deficits noted. [] Psychologic: Affect normal, judgement normal, mood normal. [] (MADGY PEOPLES APRN) Current Patient Data Vital Signs Vital Signs Date Time Temp Pulse Resp B/P (MAP) Pulse Ox O2 Delivery O2 Flow Rate FiO2 10/14/19 20:20 98.4 94 18 131/101 (111) 98 Room Air 98.4 (EFRA CHO MD) Lab Values Laboratory Tests Test 10/14/19 20:42 10/14/19 23:05 Urine Color Yellow Urine Clarity Clear Urine pH 5.5 Urine Specific [place] >=1.030 Urine Protein Negative mg/dL (NEG-TRACE) Urine Glucose (UA) Negative mg/dL (NEG) Urine Ketones (Stick) Negative mg/dL (NEG) Urine Blood Negative (NEG) Urine Nitrite Negative (NEG) Urine Bilirubin Negative (NEG) Urine Urobilinogen Dipstick 0.2 mg/dL (0.2 mg/dL) Urine Leukocyte Esterase Negative (NEG) Urine RBC Occ /HPF (0-2) Urine WBC 1-4 /HPF (0-4) Urine Squamous Epithelial Cells Occ /LPF Urine Bacteria Few /HPF (0-FEW) Urine Mucus Mod /LPF White Blood Count 11.1 x10^3/uL (4.0-11.0) H Red Blood Count 4.03 x10^6/uL (3.50-5.40) Hemoglobin 12.9 g/dL (12.0-15.5) Hematocrit 37.7 % (36.0-47.0) Mean Corpuscular Volume 94 fL (79-100) Mean Corpuscular Hemoglobin 32 pg (25-35) Mean Corpuscular Hemoglobin Concent 34 g/dL (31-37) Red Cell Distribution Width 13.3 % (11.5-14.5) Platelet Count 420 x10^3/uL (140-400) H Neutrophils (%) (Auto) 46 % (31-73) Lymphocytes (%) (Auto) 42 % (24-48) Monocytes (%) (Auto) 7 % (0-9) Eosinophils (%) (Auto) 4 % (0-3) H Basophils (%) (Auto) 1 % (0-3) Neutrophils # (Auto) 5.1 x10^3/uL (1.8-7.7) Lymphocytes # (Auto) 4.7 x10^3/uL (1.0-4.8) Monocytes # (Auto) 0.8 x10^3/uL (0.0-1.1) Eosinophils # (Auto) 0.5 x10^3/uL (0.0-0.7) Basophils # (Auto) 0.1 x10^3/uL (0.0-0.2) Sodium Level 141 mmol/L (136-145) Potassium Level 4.0 mmol/L (3.5-5.1) Chloride Level 106 mmol/L (98-107) Carbon Dioxide Level 22 mmol/L (21-32) Anion Gap 13 (6-14) Blood Urea Nitrogen 17 mg/dL (7-20) Creatinine 0.9 mg/dL (0.6-1.0) Estimated GFR (Cockcroft-Gault) 68.0 BUN/Creatinine Ratio 19 (6-20) Glucose Level 97 mg/dL (70-99) Calcium Level 9.2 mg/dL (8.5-10.1) Total Bilirubin 0.2 mg/dL (0.2-1.0) Aspartate Amino Transferase (AST) 11 U/L (15-37) L Alanine Aminotransferase (ALT) 14 U/L (14-59) Alkaline Phosphatase 63 U/L (46-116) Total Protein 7.8 g/dL (6.4-8.2) Albumin 4.0 g/dL (3.4-5.0) Albumin/Globulin Ratio 1.1 (1.0-1.7) Laboratory Tests 10/14/19 23:05 Laboratory Tests 10/14/19 23:05 (EFRA CHO MD) EKG EKG [] (MAGDY PEOPLES APRN) Radiology/Procedures Radiology/Procedures [] (MAGDY PEOPLES APRN) Impressions: [facility] [address] [place], [place] [id number] IMAGING REPORT Signed PATIENT: TRACIE GAONAOUNT: [id number] : 1975 LOCATION: ER AGE: 44 SEX: F EXAM STATUS: REG ER ORD. PHYSICIAN: MAGDY PEOPLES APRN REASON: headache PROCEDURE: CT HEAD WO CONTRAST CT HEAD WO CONTRAST History: Headache Comparison: May 02, 2004 Technique: Noncontrast CT imaging was performed of the head. Exposure: One or more of the following individualized dose reduction techniques were utilized for this examination: 1. Automated exposure control 2. Adjustment of the mA and/or kV according to patient size 3. Use of iterative reconstruction technique. Findings: No intracranial hemorrhage. No mass effect. Mildly dilated asymmetric lateral ventricles, similar compared to 2004, likely developmental. Low-lying cerebellar tonsils, unchanged. Imaged orbits are unremarkable. Frothy secretions within the right posterior ethmoid air cells. Right sphenoid sinus mucous retention cyst or polyp. Left inferior frontal osteoma. Mastoid air cells are clear. Impression: 1. No acute intracranial abnormality. 2. Low-lying cerebellar tonsils, unchanged. Electronically signed by: Dave Ruelas DO (10/14/2019 11:35 PM) [facility] DICTATED and SIGNED BY: DAVE RUELAS DO DATE: 10/14/19 [id number] (MAGDY PEOPLES APRN) Course & Med Decision Making Course & Med Decision Making I discussed the over plan of care with the patient of giving her Reglan and Imitrex. Patient refusing imitrex, stating she does not want a shot and it made her nauseated in the past. Patient took the Reglan IV. Alert and oriented. Denies pain, shortness of air, dizziness, vomiting, fever, neck pain, back pain, abdominal pain, visual loss, numbness or tingling, weaknesses, recent illness. Speaks in full clear sentences. No extremity edema. Lungs are clear dictation all lobes. Vital signs within normal limits. Speaks in full clear sentences. Ambulatory with steady gait. Full range of motion in her neck. PERRLA. Patient is photophobic. Patient moved all extremities without complication. All extremities had strong strengths and equal. After patient refusing Imitrex she then stated she wanted to leave because we were doing nothing but making her pain worse. Patient is asked what she was usually given to get rid of her headaches and she's would not answer the nurse. Patient is told that the care plan for a migraine does not normally involve strong narcotic use. Patient refused to sign AMA form. Patient refused to let the tech take out her IV and asked for some other nurse to take out her IV. As patient was leaving AMA she asked if I would give her some pain medication pr escriptions. I told her she needed to stay for the rest of her care before I would send her home with any prescriptions. (MAGDY PEOPLES APRN) Dragon Disclaimer Dragon Disclaimer This electronic medical record was generated, in whole or in part, using a voice recognition dictation system. (MAGDY PEOPLES APRN) NIHSS Stroke Scale NIH Stroke Scale: NIH Stroke Scale Response (Comments) Value Level of Consciousness: 0 Alert/Responsive 0 LOC Questions: 0 Answers both correctly 0 LOC Commands: 0 Performs both tasks 0 Best Gaze: 0 Normal 0 Visual: 0 No visual loss 0 Facial Palsy: 0 Normal, symmetrical 0 Motor - Left Arm 0 No drift 0 Motor - Right Arm 0 No drift 0 Motor - Left Leg 0 No drift 0 Motor: Right Leg 0 No drift 0 Limb Ataxia: 0 Absent 0 Sensory: 0 No loss 0 Best Language: 0 Normal 0 Dysathria: 0 Normal 0 Extinction and Inattention: 0 Normal 0 Total 0 Departure Departure Impression: Primary Impression: Migraine Disposition: 07 AGAINST MEDICAL ADVICE Condition: STABLE Referrals: NO PCP (PCP) Problem Qualifiers Primary Impression: Migraine Migraine type: unspecified Status migrainosus presence: without status migrainosus Intractability: not intractable Qualified Codes: G43.909 - Migraine, unspecified, not intractable, without status migrainosus MAGDY PEOPLES APRN Oct 14, 2019 23:36 EFRA HCO MD Oct 15, 2019 05:00
== END 2019-10-14 23:43 | disposition left against medical advice (07) ==
LOC: ER 20:07
DX: G43.909 Migraine, unspecified, not intractable, without status migrainosus (principal); I11.0 Hypertensive heart disease with heart failure; I50.9 Heart failure, unspecified; J44.9 Chronic obstructive pulmonary disease, unspecified; E78.00 Pure hypercholesterolemia, unspecified; I25.2 Old myocardial infarction; Z86.718 Personal history of other venous thrombosis and embolism; Z86.711 Personal history of pulmonary embolism; Z88.0 Allergy status to penicillin; Z88.1 Allergy status to other antibiotic agents; Z88.2 Allergy status to sulfonamides; Z88.4 Allergy status to anesthetic agent; Z88.8 Allergy status to other drugs, medicaments and biological substances
CPT/HCPCS: 36415; 70450; 80053; 81001; 85025; 96374; 99285; J2765

== ENCOUNTER 2019-11-17 19:00 | Emergency (ER) | payer SELFPAY ==
[~2019-11-17] VITALS: Ht 172.7 cm; Wt 113.4 kg
[2019-11-17 19:25] LABS: BILIRUBIN,URINE NEGATIVE (NEG); CLARITY,URINE CLEAR; COLOR,URINE YELLOW; NITRITE,URINE NEGATIVE (NEG); PH,URINE 5.5; PROTEIN,URINE NEGATIVE (NEG-TRACE); UROBILINOGEN,URINE 0.2 mg/dL (0.2 mg/dL)
[2019-11-17 19:30] LABS: BACTERIA,URINE MODERATE /HPF (0-FEW); RBC,URINE OCC /HPF (0-2); SQUAMOUS EPITHELIAL CELL,UR MOD /LPF
[2019-11-17] MEDS ORDERED: FAMOTIDINE 20 MG/2 ML VIAL IVP ONE (19:30)
--- NOTE | 2019-11-17 19:47 | PHYS DOC ---
Past Medical History Past Medical History: CHF, COPD, DVT, High Cholesterol, Hypertension, Kidney Stone, [place], P.U.D., Seizure, UTI, Other Additional Past Medical Histor: Pulmonary Embolism, Lupus, Bleeding Gastric Ulcers Past Surgical History: Appendectomy, Cholecystectomy, , Hysterectomy, Tonsillectomy, Other Additional Past Surgical Histo: IVC filter placed and removed Smoking: Cigarettes, Less than 1pk/day Additional Information: Active smoker: 1/2pack/day Alcohol Use: Rarely Drug Use: None Adult General Chief Complaint Chief Complaint: ABDOMINAL PAIN HPI HPI Patient is a 44 year old F with a history of PUD who presents to the ED with abdominal pain. Onset: yesterday. Location: epigastic. Radiation to RLQ. Character is described as sharp. Duration is constant. Associated sx: nausea, dark stools, weakness. Pt denies chest pain, v/d, fevers, chills, CP. Pt states that this pain feels similar to the pain she had 2 years ago with a bleeding ulcer. Pt states ulcer was cauterized. Pt states that she currently takes medication and is compliant for PUD. Review of Systems Review of Systems Constitutional: Denies fever or chills Eyes: Denies redness or eye pain HENT: Denies nasal congestion or sore throat Respiratory: Denies cough or shortness of breath Cardiovascular: Denies chest pain or palpitations GI: Reports epigastric abdominal pain, reports nausea, denies vomiting, reports dark stools : Denies dysuria or hematuria Musculoskeletal: Denies back pain or joint pain Integument: Denies rash or skin lesions Neurologic: Denies headache, focal weakness or sensory changes Complete systems were reviewed and found to be within normal limits, except as documented in this note. Current Medications Current Medications Current Medications Medications (Trade) Dose Ordered Sig/Tex Start Time Stop Time Status Last Admin Dose Admin Famotidine (Pepcid Vial) 20 mg 1X ONCE 11/17/19 19:30 11/17/19 19:24 DC Fentanyl Citrate (Fentanyl 2ml Vial) 50 mcg 1X ONCE 11/17/19 19:45 11/17/19 19:49 DC 11/17/19 20:12 50 MCG Morphine Sulfate (Morphine Sulfate) 4 mg 1X ONCE 11/17/19 20:45 11/17/19 20:48 DC 11/17/19 20:52 4 MG Ondansetron HCl (Zofran) 4 mg 1X ONCE 11/17/19 19:30 11/17/19 19:31 DC 11/17/19 20:09 4 MG Pantoprazole Sodium (PROTONIX VIAL for IV PUSH) 80 mg 1X ONCE 11/17/19 19:30 11/17/19 19:31 DC 11/17/19 20:09 80 MG Sodium Chloride 1,000 ml @ 1,000 mls/hr 1X ONCE 11/17/19 19:30 11/17/19 20:29 DC 11/17/19 20:09 1,000 MLS/HR Allergies Allergies Allergies Coded Allergies Type Severity Reaction Last Updated Verified Cephalexin Monohydrate Allergy Intermediate 06/30/17 Yes NSAIDS (Non-Steroidal Anti-Inflamma Allergy Intermediate 09/27/17 Yes Penicillins Allergy Intermediate 06/30/17 Yes iodine Allergy Intermediate 06/30/17 Yes lidocaine Allergy Intermediate 06/30/17 Yes prochlorperazine edisylate Allergy Intermediate 06/30/17 Yes prochlorperazine maleate Allergy Intermediate 06/30/17 Yes sulfamethoxazole Allergy Intermediate 06/30/17 Yes trimethoprim Allergy Intermediate 06/30/17 Yes Physical Exam Physical Exam Constitutional: Well developed, well nourished, no acute distress, non-toxic appearance HENT: Normocephalic, atraumatic, oropharynx moist Eyes: Conjunctiva normal, no discharge Neck: Normal range of motion, no tenderness, supple Cardiovascular: Heart rate normal, regular rhythm Lungs & Thorax: Bilateral breath sounds clear to auscultation, no wheezing Abdomen: Soft, epigastric and LUQ tenderness to palpation, no organomegaly, Negative Mc[place] Skin: Warm, dry, no erythema, no rash Back: No tenderness, no CVA tenderness Extremities: No tenderness, ROM intact, no edema Neurologic: Alert and oriented X 3, no focal deficits noted Psychologic: Affect normal, judgement normal Current Patient Data Vital Signs Vital Signs Date Time Temp Pulse Resp B/P (MAP) Pulse Ox O2 Delivery O2 Flow Rate FiO2 11/17/19 20:52 17 96 Room Air 11/17/19 19:08 98.3 97 157/91 (113) 98.3 Lab Values Laboratory Tests Test 11/17/19 19:14 11/17/19 20:01 Urine Collection Type Unknown Urine Color Yellow Urine Clarity Clear Urine pH 5.5 Urine Specific [place] >=1.030 Urine Protein Negative mg/dL (NEG-TRACE) Urine Glucose (UA) Negative mg/dL (NEG) Urine Ketones (Stick) Negative mg/dL (NEG) Urine Blood Negative (NEG) Urine Nitrite Negative (NEG) Urine Bilirubin Negative (NEG) Urine Urobilinogen Dipstick 0.2 mg/dL (0.2 mg/dL) Urine Leukocyte Esterase Negative (NEG) Urine RBC Occ /HPF (0-2) Urine WBC 5-10 /HPF (0-4) Urine Squamous Epithelial Cells Mod /LPF Urine Bacteria Moderate /HPF (0-FEW) Urine Mucus Mod /LPF White Blood Count 12.9 x10^3/uL (4.0-11.0) H Red Blood Count 3.76 x10^6/uL (3.50-5.40) Hemoglobin 12.2 g/dL (12.0-15.5) Hematocrit 35.2 % (36.0-47.0) L Mean Corpuscular Volume 94 fL (79-100) Mean Corpuscular Hemoglobin 32 pg (25-35) Mean Corpuscular Hemoglobin Concent 35 g/dL (31-37) Red Cell Distribution Width 13.2 % (11.5-14.5) Platelet Count 546 x10^3/uL (140-400) H Neutrophils (%) (Auto) 51 % (31-73) Lymphocytes (%) (Auto) 36 % (24-48) Monocytes (%) (Auto) 7 % (0-9) Eosinophils (%) (Auto) 5 % (0-3) H Basophils (%) (Auto) 2 % (0-3) Neutrophils # (Auto) 6.5 x10^3/uL (1.8-7.7) Lymphocytes # (Auto) 4.7 x10^3/uL (1.0-4.8) Monocytes # (Auto) 0.9 x10^3/uL (0.0-1.1) Eosinophils # (Auto) 0.6 x10^3/uL (0.0-0.7) Basophils # (Auto) 0.2 x10^3/uL (0.0-0.2) Prothrombin Time 12.5 SEC (11.7-14.0) Prothrombin Time INR 1.0 (0.8-1.1) Activated Partial Thromboplast Time 26 SEC (24-38) Sodium Level 141 mmol/L (136-145) Potassium Level 4.4 mmol/L (3.5-5.1) Chloride Level 104 mmol/L (98-107) Carbon Dioxide Level 25 mmol/L (21-32) Anion Gap 12 (6-14) Blood Urea Nitrogen 21 mg/dL (7-20) H Creatinine 0.9 mg/dL (0.6-1.0) Estimated GFR (Cockcroft-Gault) 68.0 BUN/Creatinine Ratio 23 (6-20) H Glucose Level 100 mg/dL (70-99) H Calcium Level 9.1 mg/dL (8.5-10.1) Magnesium Level 1.9 mg/dL (1.8-2.4) Total Bilirubin 0.1 mg/dL (0.2-1.0) L Aspartate Amino Transferase (AST) 8 U/L (15-37) L Alanine Aminotransferase (ALT) 22 U/L (14-59) Alkaline Phosphatase 70 U/L (46-116) Creatine Kinase 41 U/L (26-192) Creatine Kinase MB (Mass) < 0.5 ng/mL (0.0-3.6) Creatine Kinase MB Relative Index % (0-4) Troponin I Quantitative < 0.017 ng/mL (0.000-0.055) Total Protein 6.9 g/dL (6.4-8.2) Albumin 3.7 g/dL (3.4-5.0) Albumin/Globulin Ratio 1.2 (1.0-1.7) Lipase 178 U/L (73-393) Laboratory Tests 11/17/19 20:01 Laboratory Tests 11/17/19 20:01 EKG EKG @1959 NSR at 84 bpm, NO STEMI, RBBB, nonspecific t wave inversion V2 Radiology/Procedures Radiology/Procedures PROCEDURE: ACUTE ABDOMEN SERIES Examination: Acute abdomen series HISTORY: History of epigastric pain COMPARISON: 02/14/2018 FINDINGS: The cardiomediastinal silhouette grossly appears unremarkable. The lungs are clear. No evidence of free air noted under the hemidiaphragms. Feces and gas noted in the colon. Nonspecific bowel gas pattern. IVC filter is identified. IMPRESSION: 1. No acute cardiopulmonary findings. 2. Nonspecific bowel gas pattern. Electronically signed by: Samuel Khanna MD (11/17/2019 8:45 PM) [facility] Course & Med Decision Making Course & Med Decision Making Pertinent Labs and Imaging studies reviewed. (See chart for details) Patient is a 44yo F with PMHx of PUD and multiple abdominal surgeries that presents for epigastrium abdominal pain. Due to patients hx of multiple abdominal plain complaints and hx of 11 CT scans in the past year decision was made to hold CT imaging at this time. Labs obtained and posted to chart. H/H stable. LFTs/lipase also WNL. UA appears contaminated. AAS XR without signs of free air. Some constipation noted. EKG and troponin WNL. Patient stable for discharge with outpatient follow-up with PCP/GI. GI referral provided. Discussed findings and plan with patient, who acknowledges understanding and agreement. Dragon Disclaimer Dragon Disclaimer This electronic medical record was generated, in whole or in part, using a voice recognition dictation system. Departure Departure Impression: Primary Impression: Epigastric abdominal pain Additional Impression: Constipation Disposition: 01 HOME, SELF-CARE Condition: STABLE Referrals: NO PCP (PCP) MOHAN CAMPBELL MD Patient Instructions: Abdominal Pain (Nonspecific), Constipation, Adult, Ersu-[id number], Gastritis, Adult, [id number]-[id number] Scripts Sennosides/Docusate Sodium (Colace 2-in-1 Tablet) 1 Each Tablet 1 TAB PO QHS for constipation for 30 Days, #30 TAB 0 Refills Prov: GREGORIA SLAUGHTER DO 11/17/19 Famotidine (PEPCID) 20 Mg Tablet 20 MG PO BID, #14 TAB Prov: GREGORIA SLAUGHTER DO 11/17/19 Ondansetron (ONDANSETRON ODT) 4 Mg Tab.rapdis 1 TAB PO PRN Q6-8HRS PRN for NAUSEA, #16 TAB Prov: GREGORIA SLAUGHTER DO 11/17/19 Hyoscyamine Sulfate (LEVSIN-SL) 0.125 Mg Tab.subl 0.125 MG SL Q4-6HRS PRN for PAIN, #20 TAB Prov: GREGORIA SLAUGHTER DO 11/17/19 Problem Qualifiers Additional Impression: Constipation Constipation type: unspecified constipation type Qualified Codes: K59.00 - Constipation, unspecified GREGORIA SLAUGHTER DO Nov 17, 2019 19:47
[2019-11-17] MEDS: ONDANSETRON PF 4 MG/2 ML VIAL. IV ONE (20:09)
[2019-11-17] MEDS: PANTOPRAZOLE IV PUSH 40 MG VIAL. IVP ONE (20:09)
[2019-11-17] MEDS: IV NORMAL SALINE 1000ML BAG 1,000 ML IV ONE (20:09)
[2019-11-17] MEDS: fentaNYL PF VIAL 100 MCG/2 ML VIAL IV ONE (20:12)
[2019-11-17 20:15] LABS: BASO # 0.2 x10^3/uL (0.0-0.2); BASO % 2 % (0-3); EOS # 0.6 x10^3/uL (0.0-0.7); EOS % 5 % (0-3); HEMATOCRIT 35.2 % (36.0-47.0); HEMOGLOBIN 12.2 g/dL (12.0-15.5); LYMPH # 4.7 x10^3/uL (1.0-4.8); LYMPH % 36 % (24-48); MEAN CORPUSCULAR HEMOGLOBIN 32 pg (25-35); MEAN CORPUSCULAR HGB CONC 35 g/dL (31-37); MEAN CORPUSCULAR VOLUME 94 fL (79-100); MONO # 0.9 x10^3/uL (0.0-1.1); MONO % 7 % (0-9); NEUT # 6.5 x10^3/uL (1.8-7.7); NEUT % 51 % (31-73); PLATELET COUNT 546 x10^3/uL (140-400); RED BLOOD COUNT 3.76 x10^6/uL (3.50-5.40); RED CELL DISTRIBUTION WIDTH 13.2 % (11.5-14.5); WHITE BLOOD COUNT 12.9 x10^3/uL (4.0-11.0)
[2019-11-17 20:25] LABS: CALCIUM 9.1 mg/dL (8.5-10.1); CREATININE 0.9 mg/dL (0.6-1.0); POTASSIUM 4.4 mmol/L (3.5-5.1)
[2019-11-17 20:29] LABS: PROTHROMBIN TIME PATIENT 12.5 SEC (11.7-14.0)
[2019-11-17 20:31] LABS: ALBUMIN 3.7 g/dL (3.4-5.0); ALBUMIN/GLOBULIN RATIO 1.2 (1.0-1.7); MAGNESIUM 1.9 mg/dL (1.8-2.4); TOTAL BILIRUBIN 0.1 mg/dL (0.2-1.0); TOTAL PROTEIN 6.9 g/dL (6.4-8.2)
[2019-11-17 20:41] LABS: CREATINE KINASE 41 U/L (26-192)
--- NOTE | 2019-11-17 20:48 | RAD ---
Examination: Acute abdomen series HISTORY: History of epigastric pain COMPARISON: 02/14/2018 FINDINGS: The cardiomediastinal silhouette grossly appears unremarkable. The lungs are clear. No evidence of free air noted under the hemidiaphragms. Feces and gas noted in the colon. Nonspecific bowel gas pattern. IVC filter is identified. IMPRESSION: 1. No acute cardiopulmonary findings. 2. Nonspecific bowel gas pattern. Electronically signed by: Samuel Khanna MD (11/17/2019 8:45 PM) [facility]
[2019-11-17] MEDS: MORPHINE SULFATE 4 MG/ML VIAL. IV ONE (20:52)
[2019-11-17] MEDS ORDERED: FAMO-63 PO (21:05)
[2019-11-17] MEDS ORDERED: HYOS0.1265 SL (21:05)
[2019-11-17] MEDS ORDERED: SENN-121 PO (21:05)
[2019-11-17] MEDS ORDERED: ONDA4TAB12 PO (21:05)
[2019-11-17 21:16] VITALS: BP 136/65
--- NOTE | 2019-11-18 06:53 | EKG ---
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
== END 2019-11-17 21:14 | disposition home or self-care (01) ==
LOC: ER 19:00
DX: R10.13 Epigastric pain (principal); K59.00 Constipation, unspecified; R11.0 Nausea; I50.9 Heart failure, unspecified; J44.9 Chronic obstructive pulmonary disease, unspecified; K27.7 Chronic peptic ulcer, site unspecified, without hemorrhage or perforation; F17.210 Nicotine dependence, cigarettes, uncomplicated; E78.00 Pure hypercholesterolemia, unspecified; I10 Essential (primary) hypertension; Z87.442 Personal history of urinary calculi; I25.2 Old myocardial infarction; Z87.11 Personal history of peptic ulcer disease; Z90.49 Acquired absence of other specified parts of digestive tract; Z90.89 Acquired absence of other organs; Z90.710 Acquired absence of both cervix and uterus; Z86.718 Personal history of other venous thrombosis and embolism; Z88.1 Allergy status to other antibiotic agents; Z88.6 Allergy status to analgesic agent; Z88.0 Allergy status to penicillin; Z88.4 Allergy status to anesthetic agent; Z88.2 Allergy status to sulfonamides; Z88.8 Allergy status to other drugs, medicaments and biological substances; Z79.899 Other long term (current) drug therapy
CPT/HCPCS: 36415; 74022; 80053; 81001; 82553; 83690; 83735; 84484; 85025; 85610; 85730; 87086; 93005; 96374; 96375; 99285; C9113; J2270; J2405; J3010; J7030

== ENCOUNTER 2019-11-29 02:11 | Emergency (ER) | payer SELFPAY ==
[~2019-11-29 02:11] MED LIST changes: +FAMO-63 PO; +HYOS0.1265 SL; +SENN-121 PO
[2019-11-29 02:35] LABS: BILIRUBIN,URINE SMALL (NEG); CLARITY,URINE CLEAR; COLOR,URINE YELLOW; NITRITE,URINE NEGATIVE (NEG); PH,URINE 5.5; PROTEIN,URINE NEGATIVE (NEG-TRACE); UROBILINOGEN,URINE 0.2 mg/dL (0.2 mg/dL)
[2019-11-29 02:42] LABS: U PREG PATIENT NEGATIVE (NEG)
[2019-11-29 02:44] LABS: BACTERIA,URINE FEW /HPF (0-FEW); SQUAMOUS EPITHELIAL CELL,UR MOD /LPF
--- NOTE | 2019-11-29 02:55 | PHYS DOC ---
Past Medical History Past Medical History: CHF, COPD, DVT, High Cholesterol, Hypertension, Kidney Stone, [place], P.U.D., Seizure, UTI, Other Additional Past Medical Histor: Pulmonary Embolism, Lupus, Bleeding Gastric Ulcers Past Surgical History: Appendectomy, Cholecystectomy, , Hysterectomy, Tonsillectomy, Other Additional Past Surgical Histo: IVC filter placed and removed Alcohol Use: Rarely Drug Use: None Adult General Chief Complaint Chief Complaint: FLANK PAIN HPI HPI Patient is a 44 year old female with history of PE, lupus, kidney stones, or chronic pain who presents with intermittent bilateral flank pain with hematuria 2 days. Patient also reports nausea without vomiting. No fever chills or sweats. Patient states she has passed 2 kidney stones in the past 24 hours. No fevers chills or sweats. No other acute symptoms complaints [] Review of Systems Review of Systems Review of symptoms as per history of present illness. All other review symptoms are negative All other systems were reviewed and found to be within normal limits, except as documented in this note. Current Medications Current Medications Current Medications Medications (Trade) Dose Ordered Sig/Tex Start Time Stop Time Status Last Admin Dose Admin Acetaminophen (Tylenol) 1,000 mg 1X ONCE 11/29/19 04:00 11/29/19 03:46 DC Cyclobenzaprine HCl (Flexeril) 10 mg 1X ONCE 11/29/19 04:00 11/29/19 03:46 DC 11/29/19 03:36 10 MG Allergies Allergies Allergies Coded Allergies Type Severity Reaction Last Updated Verified Cephalexin Monohydrate Allergy Intermediate 06/30/17 Yes NSAIDS (Non-Steroidal Anti-Inflamma Allergy Intermediate 09/27/17 Yes Penicillins Allergy Intermediate 06/30/17 Yes iodine Allergy Intermediate 06/30/17 Yes lidocaine Allergy Intermediate 06/30/17 Yes prochlorperazine edisylate Allergy Intermediate 06/30/17 Yes prochlorperazine maleate Allergy Intermediate 06/30/17 Yes sulfamethoxazole Allergy Intermediate 06/30/17 Yes trimethoprim Allergy Intermediate 06/30/17 Yes Physical Exam Physical Exam Constitutional: Well developed, well nourished, no acute distress, non-toxic appearance. [] HENT: Normocephalic, atraumatic, bilateral external ears normal, oropharynx moist, nose normal. [] Eyes: PERRLA, EOMI, conjunctiva normal. [] Neck: Normal range of motion. [] Cardiovascular:Heart rate regular rhythm, no murmur [] Lungs & Thorax: Bilateral breath sounds clear to auscultation. [] Abdomen: Bowel sounds normal, soft, no tenderness. [] Skin: Warm, dry, no erythema, no rash. [] Back: No tenderness, R CVA tenderness. [] Extremities: No tenderness, no edema. [] Neurologic: Alert and oriented X 3, normal motor function, normal sensory function, no focal deficits noted. [] Psychologic: Affect anxious, judgement normal, mood normal. [] Current Patient Data Vital Signs Vital Signs Date Time Temp Pulse Resp B/P (MAP) Pulse Ox O2 Delivery O2 Flow Rate FiO2 11/29/19 02:20 98.1 95 20 169/102 (124) 95 Room Air 98.1 Lab Values Laboratory Tests Test 11/29/19 02:14 Urine Collection Type Unknown Urine Color Yellow Urine Clarity Clear Urine pH 5.5 Urine Specific [place] >=1.030 Urine Protein Negative mg/dL (NEG-TRACE) Urine Glucose (UA) Negative mg/dL (NEG) Urine Ketones (Stick) Negative mg/dL (NEG) Urine Blood Large (NEG) Urine Nitrite Negative (NEG) Urine Bilirubin Small (NEG) Urine Urobilinogen Dipstick 0.2 mg/dL (0.2 mg/dL) Urine Leukocyte Esterase Small (NEG) Urine RBC 11-20 /HPF (0-2) Urine WBC 5-10 /HPF (0-4) Urine Squamous Epithelial Cells Mod /LPF Urine Bacteria Few /HPF (0-FEW) Urine Mucus Mod /LPF Urine Test Negative (NEG) EKG EKG [] Radiology/Procedures Radiology/Procedures [CT abdomen pelvis: Reviewed] Course & Med Decision Making Course & Med Decision Making Pertinent Labs and Imaging studies reviewed. (See chart for details) [Chronic back pain history of kidney stones. Patient states she passed 2 kidney stones prior to ED arrival. Patient pain significant signs on examiner entering the room. UA, CT ordered and results pending. Pain addressed. Patient does not wish to wait for CT results and requests expedited discharge from the ED. Recommend supportive care and follow up with her PCP later today. Return precautions reviewed. ] Dragon Disclaimer Dragon Disclaimer This electronic medical record was generated, in whole or in part, using a voice recognition dictation system. Departure Departure Impression: Primary Impression: Back pain Additional Impression: Drug-seeking behavior Disposition: 01 HOME, SELF-CARE Condition: IMPROVED Referrals: NO PCP (PCP) Problem Qualifiers MARY ELLEN WILLARD DO Nov 29, 2019 02:55
[2019-11-29 03:23] VITALS: BP 156/90
--- NOTE | 2019-11-29 03:46 | RAD ---
CT of the abdomen pelvis without contrast. HISTORY: Left flank pain CT scan the abdomen pelvis was done without contrast. There are mild groundglass infiltrates in the lung bases or edema. A liver lesion is not identified. Liver is generous in size. The patient's had a cholecystectomy. Spleen and adrenal glands are normal. Pancreas is unremarkable. There is a vena cava filter. There are bilateral intrarenal calculi. A ureteral calculus is not identified. There is no bowel obstruction. There is no free fluid in the pelvis. The patient's had a hysterectomy. Lumbar spine is in normal alignment. There is moderate stool in the colon. Appendix is not identified. IMPRESSION: 1. Bilateral intrarenal calculi. 2. No ureteral calculus or hydronephrosis noted. 3. Mild groundglass infiltrates or edema in the lung bases. PQRS Compliance Statement: One or more of the following individualized dose reduction techniques were utilized for this examination: 1. Automated exposure control 2. Adjustment of the mA and/or kV according to patient size 3. Use of iterative reconstruction technique Electronically signed by: Fredy Hinkle MD (11/29/2019 3:44 AM) [facility]
[2019-11-29] MEDS ORDERED: CYCLOBENZAPRINE 10 MG TABLET. PO ONE (04:00)
[2019-11-29] MEDS ORDERED: ACETAMINOPHEN 500 MG TABLET PO ONE (04:00)
== END 2019-11-29 03:44 | disposition home or self-care (01) ==
LOC: ER 02:11
DX: M54.5 Low back pain (principal); R10.9 Unspecified abdominal pain; Z76.5 Malingerer [conscious simulation]; R31.9 Hematuria, unspecified; I50.9 Heart failure, unspecified; J44.9 Chronic obstructive pulmonary disease, unspecified; Z86.718 Personal history of other venous thrombosis and embolism; E78.00 Pure hypercholesterolemia, unspecified; I10 Essential (primary) hypertension; Z87.442 Personal history of urinary calculi; I25.2 Old myocardial infarction; Z90.49 Acquired absence of other specified parts of digestive tract; Z90.89 Acquired absence of other organs; Z90.710 Acquired absence of both cervix and uterus; Z98.890 Other specified postprocedural states; Z88.1 Allergy status to other antibiotic agents; Z88.2 Allergy status to sulfonamides; Z88.6 Allergy status to analgesic agent; Z88.4 Allergy status to anesthetic agent
CPT/HCPCS: 74176; 81001; 81025; 87086; 99285

== ENCOUNTER 2019-12-06 22:41 | Emergency (ER) | payer SELFPAY ==
[~2019-12-06] VITALS: Ht 172.7 cm; Wt 113.6 kg
[2019-12-06 23:48] VITALS: BP 144/94
--- NOTE | 2019-12-07 03:23 | PHYS DOC ---
Past Medical History Past Medical History: CHF, COPD, DVT, High Cholesterol, Hypertension, Kidney Stone, [place], P.U.D., Seizure, UTI, Other Additional Past Medical Histor: Pulmonary Embolism, Lupus, Bleeding Gastric Ulcers Past Surgical History: Appendectomy, Cholecystectomy, , Hysterectomy, Tonsillectomy, Other Additional Past Surgical Histo: IVC filter placed and removed Alcohol Use: Rarely Drug Use: None Adult General Chief Complaint Chief Complaint: ABDOMINAL PAIN HPI HPI Patient is a 44 year old with past medical history of multiple abdominal surgeries(Appendectomy, Cholecystectomy, , and Hysterectomy) abdominal pain who presents with diffuse lower abdominal pain and mid abdomen and radiating to chest, pelvis and around the flank. Symptoms began yesterday. Patient reports nausea and increased pain with eating. Denies vomiting, diarrhea, bloody stools or tarry stools. No fevers chills or sweats. Reports history of peptic ulcer disease. Compliant with medications. No other acute symptoms complaints. Note, patient has been evaluated for abdominal pain multiple times in the past 18 months and has had greater than 10 CTs of the abdomen and pelvis. No history of CAD.[] Review of Systems Review of Systems Review symptoms as per history of present illness. All other review symptoms are negative All other systems were reviewed and found to be within normal limits, except as documented in this note. Current Medications Current Medications Current Medications Medications (Trade) Dose Ordered Sig/Tex Start Time Stop Time Status Last Admin Dose Admin Dicyclomine HCl (Bentyl) 20 mg 1X ONCE 12/07/19 03:30 12/07/19 03:31 DC Famotidine (Pepcid Vial) 20 mg 1X ONCE 12/07/19 03:30 12/07/19 03:31 DC Ondansetron HCl (Zofran) 4 mg 1X ONCE 12/07/19 03:30 12/07/19 03:31 DC Allergies Allergies Allergies Coded Allergies Type Severity Reaction Last Updated Verified Cephalexin Monohydrate Allergy Intermediate 06/30/17 Yes NSAIDS (Non-Steroidal Anti-Inflamma Allergy Intermediate 09/27/17 Yes Penicillins Allergy Intermediate 06/30/17 Yes iodine Allergy Intermediate 06/30/17 Yes lidocaine Allergy Intermediate 06/30/17 Yes prochlorperazine edisylate Allergy Intermediate 06/30/17 Yes prochlorperazine maleate Allergy Intermediate 06/30/17 Yes sulfamethoxazole Allergy Intermediate 06/30/17 Yes trimethoprim Allergy Intermediate 06/30/17 Yes Physical Exam Physical Exam Constitutional: Well developed, well nourished. [] HENT: Normocephalic, atraumatic, bilateral external ears normal, oropharynx moist, no oral exudates, nose normal. [] Eyes: PERRLA, EOMI, conjunctiva normal, no discharge. [] Neck: Normal range of motion, no tenderness, supple, no stridor. [] Cardiovascular:Heart rate regular rhythm, no murmur [] Lungs & Thorax: Bilateral breath sounds clear to auscultation [] Abdomen: Bowel sounds normal, soft, distended, diffuse abdominal pain/tenderness,. [] Skin: Warm, dry, no erythema, no rash. [] Back: No tenderness, no CVA tenderness. [] Extremities: No tenderness,no edema. [] Neurologic: Alert and oriented X 3, normal motor function, normal sensory function, no focal deficits noted. [] Psychologic: Affect normal, judgement normal, mood normal. [] Current Patient Data Vital Signs Vital Signs Date Time Temp Pulse Resp B/P (MAP) Pulse Ox O2 Delivery O2 Flow Rate FiO2 12/06/19 23:48 97.7 89 18 144/94 (111) 97 Room Air 97.7 Lab Values Laboratory Tests Test 12/07/19 03:42 12/07/19 03:45 POC Urine HCG, Qualitative Hcg negative (Negative) Urine Collection Type Unknown Urine Color Yellow Urine Clarity Clear Urine pH 5.5 Urine Specific [place] 1.020 Urine Protein Negative mg/dL (NEG-TRACE) Urine Glucose (UA) Negative mg/dL (NEG) Urine Ketones (Stick) Negative mg/dL (NEG) Urine Blood Negative (NEG) Urine Nitrite Negative (NEG) Urine Bilirubin Negative (NEG) Urine Urobilinogen Dipstick 0.2 mg/dL (0.2 mg/dL) Urine Leukocyte Esterase Moderate (NEG) Urine RBC Occ /HPF (0-2) Urine WBC 20-40 /HPF (0-4) Urine Squamous Epithelial Cells Mod /LPF Urine Transitional Epithelial Cells Occ /LPF Urine Bacteria Moderate /HPF (0-FEW) Urine Mucus Mod /LPF EKG EKG [] Radiology/Procedures Radiology/Procedures [] Course & Med Decision Making Course & Med Decision Making Pertinent Labs and Imaging studies reviewed. (See chart for details) [] Pain addressed. Work up in progress. Patient abruptly left AGAINST MEDICAL ADVICE after pain medication and prior to completion of work up. Dragon Disclaimer Dragon Disclaimer This electronic medical record was generated, in whole or in part, using a voice recognition dictation system. Departure Departure Impression: Primary Impression: Abdominal pain Additional Impression: Drug-seeking behavior Disposition: 07 AGAINST MEDICAL ADVICE Referrals: NO PCP (PCP) Problem Qualifiers MARY ELLEN WILLARD DO Dec 07, 2019 03:23
[2019-12-07] MEDS ORDERED: DICYCLOMINE 20 MG/2 ML AMPUL. IM ONE (03:30)
[2019-12-07] MEDS ORDERED: FAMOTIDINE 20 MG/2 ML VIAL IVP ONE (03:30)
[2019-12-07] MEDS ORDERED: ONDANSETRON PF 4 MG/2 ML VIAL. IVP ONE (03:30)
[2019-12-07 03:54] LABS: BILIRUBIN,URINE NEGATIVE (NEG); CLARITY,URINE CLEAR; COLOR,URINE YELLOW; NITRITE,URINE NEGATIVE (NEG); PH,URINE 5.5; PROTEIN,URINE NEGATIVE (NEG-TRACE); UROBILINOGEN,URINE 0.2 mg/dL (0.2 mg/dL)
[2019-12-07 04:00] LABS: BACTERIA,URINE MODERATE /HPF (0-FEW); RBC,URINE OCC /HPF (0-2); SQUAMOUS EPITHELIAL CELL,UR MOD /LPF; WBC,URINE 20-40 /HPF (0-4)
--- NOTE | 2019-12-07 07:54 | EKG ---
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
== END 2019-12-07 04:12 | disposition left against medical advice (07) ==
LOC: ER 22:41
DX: R10.30 Lower abdominal pain, unspecified (principal); I50.9 Heart failure, unspecified; J44.9 Chronic obstructive pulmonary disease, unspecified; E78.00 Pure hypercholesterolemia, unspecified; I10 Essential (primary) hypertension; I25.2 Old myocardial infarction; Z90.49 Acquired absence of other specified parts of digestive tract; Z90.89 Acquired absence of other organs; Z90.710 Acquired absence of both cervix and uterus; Z98.890 Other specified postprocedural states; Z88.0 Allergy status to penicillin; Z76.5 Malingerer [conscious simulation]; Z86.718 Personal history of other venous thrombosis and embolism; Z87.442 Personal history of urinary calculi; Z88.8 Allergy status to other drugs, medicaments and biological substances; Z88.4 Allergy status to anesthetic agent; Z88.2 Allergy status to sulfonamides; Z88.1 Allergy status to other antibiotic agents
CPT/HCPCS: 81001; 81025; 87086; 93005; 99285

== ENCOUNTER 2019-12-07 13:18 | Emergency (ER) | payer SELFPAY ==
[~2019-12-07] VITALS: Ht 172.7 cm; Wt 114.0 kg
[2019-12-07] MEDS ORDERED: IV NORMAL SALINE 1000ML BAG 1,000 ML IV SCH (13:37)
--- NOTE | 2019-12-07 13:43 | PHYS DOC ---
Past Medical History Past Medical History: CHF, COPD, DVT, High Cholesterol, Hypertension, Kidney Stone, [place], P.U.D., Seizure, UTI, Other Additional Past Medical Histor: Pulmonary Embolism, Lupus, Bleeding Gastric Ulcers Past Surgical History: Appendectomy, Cholecystectomy, , Hysterectomy, Tonsillectomy, Other Additional Past Surgical Histo: IVC filter placed and removed Alcohol Use: Rarely Drug Use: None Adult General Chief Complaint Chief Complaint: CHEST PAIN HPI HPI Patient is a 44-year-old female who presents to the emergency room for evaluation. She states that over the past 36 hours she has had some right-sided chest discomfort, worse with coughing, and deep breathing. She reports some mild shortness of breath. She also reports upper abdominal pain, which she states is related to her ulcers. She was seen in the emergency department last night but apparently eloped from the emergency department. She has not had any exertional pain. She states the pain feels similar to prior pulmonary emboli that she has had. She takes Eliquis 5 mg twice daily, per patient history. She has not had any vomiting, or diarrhea. There are no alleviating or exacerbating factors to the patient's symptoms other than as noted above. Her notes from yesterday's ER visit, as well as numerous prior ER visit records have been reviewed. Review of Systems Review of Systems Constitutional: Denies fever or chills [] Eyes: Denies change in visual acuity, redness, or eye pain [] HENT: Denies nasal congestion or sore throat [] Respiratory: No additional information not addressed in HPI [] Cardiovascular: No additional information not addressed in HPI [] GI: Denies vomiting, bloody stools or diarrhea. Reports nausea. [] : Denies dysuria or hematuria [] Musculoskeletal: Denies back pain or joint pain [] Integument: Denies rash or skin lesions [] Neurologic: Denies headache, focal weakness or sensory changes [] Endocrine: Denies polyuria or polydipsia [] All other systems were reviewed and found to be within normal limits, except as documented in this note. Current Medications Current Medications Current Medications Medications (Trade) Dose Ordered Sig/Tex Start Time Stop Time Status Last Admin Dose Admin Al Hydroxide/Mg Hydroxide (Mylanta Plus Xs) 30 ml 1X ONCE 12/07/19 13:45 1/28/20 13:46 DC 12/07/19 13:59 30 ML Aspirin (Children'S Aspirin) 162 mg 1X ONCE 12/07/19 13:45 12/07/19 13:46 DC Sodium Chloride 1,000 ml @ 1,000 mls/hr Q1H 12/07/19 13:37 12/07/19 14:36 DC Allergies Allergies Allergies Coded Allergies Type Severity Reaction Last Updated Verified Cephalexin Monohydrate Allergy Intermediate 06/30/17 Yes NSAIDS (Non-Steroidal Anti-Inflamma Allergy Intermediate 09/27/17 Yes Penicillins Allergy Intermediate 06/30/17 Yes iodine Allergy Intermediate 06/30/17 Yes lidocaine Allergy Intermediate 06/30/17 Yes prochlorperazine edisylate Allergy Intermediate 06/30/17 Yes prochlorperazine maleate Allergy Intermediate 06/30/17 Yes sulfamethoxazole Allergy Intermediate 06/30/17 Yes trimethoprim Allergy Intermediate 06/30/17 Yes Physical Exam Physical Exam PHYSICAL EXAM: CONSTITUTIONAL: Well developed, well nourished HEAD: normocephalic, atraumatic EENT: PERRL, EOMI. Conjunctivae normal color, sclerae non-icteric; moist mucous membranes. NECK: Supple, non-tender; no meningismus. LUNGS: Lungs CTA, breathing even and unlabored. Normal air movement. HEART: Regular rate and rhythm, no murmur CHEST: No deformity; non-tender ABDOMEN: The abdomen is soft, and non-tender, no masses or bruits. EXTREM: Normal ROM; no deformity, no calf tenderness. Normal pulses palpable in all extremities. There is no pedal edema. SKIN: No rash; no diaphoresis NEURO: Alert; normal speech and cognition; CN's grossly intact; strength grossly intact without focal deficit. BACK: No CVA TTP. PSYCHIATRIC: Mildly anxious, borderline affect. Current Patient Data Lab Values Laboratory Tests Test 12/07/19 14:10 White Blood Count 9.5 x10^3/uL (4.0-11.0) Red Blood Count 3.87 x10^6/uL (3.50-5.40) Hemoglobin 12.4 g/dL (12.0-15.5) Hematocrit 36.8 % (36.0-47.0) Mean Corpuscular Volume 95 fL (79-100) Mean Corpuscular Hemoglobin 32 pg (25-35) Mean Corpuscular Hemoglobin Concent 34 g/dL (31-37) Red Cell Distribution Width 13.5 % (11.5-14.5) Platelet Count 480 x10^3/uL (140-400) H Neutrophils (%) (Auto) 62 % (31-73) Lymphocytes (%) (Auto) 26 % (24-48) Monocytes (%) (Auto) 6 % (0-9) Eosinophils (%) (Auto) 5 % (0-3) H Basophils (%) (Auto) 1 % (0-3) Neutrophils # (Auto) 5.9 x10^3/uL (1.8-7.7) Lymphocytes # (Auto) 2.5 x10^3/uL (1.0-4.8) Monocytes # (Auto) 0.6 x10^3/uL (0.0-1.1) Eosinophils # (Auto) 0.5 x10^3/uL (0.0-0.7) Basophils # (Auto) 0.0 x10^3/uL (0.0-0.2) Prothrombin Time 12.8 SEC (11.7-14.0) Prothrombin Time INR 1.0 (0.8-1.1) D-Dimer (Rozina) < 0.27 ug/mlFEU Sodium Level 145 mmol/L (136-145) Potassium Level 4.1 mmol/L (3.5-5.1) Chloride Level 106 mmol/L (98-107) Carbon Dioxide Level 27 mmol/L (21-32) Anion Gap 12 (6-14) Blood Urea Nitrogen 11 mg/dL (7-20) Creatinine 0.9 mg/dL (0.6-1.0) Estimated GFR (Cockcroft-Gault) 68.0 BUN/Creatinine Ratio 12 (6-20) Glucose Level 93 mg/dL (70-99) Calcium Level 9.8 mg/dL (8.5-10.1) Total Bilirubin 0.2 mg/dL (0.2-1.0) Aspartate Amino Transferase (AST) 16 U/L (15-37) Alanine Aminotransferase (ALT) 24 U/L (14-59) Alkaline Phosphatase 65 U/L (46-116) Troponin I Quantitative < 0.017 ng/mL (0.000-0.055) SD-Wty-W-Type Natriuretic Peptide 278 pg/mL (0-124) H Total Protein 7.2 g/dL (6.4-8.2) Albumin 3.9 g/dL (3.4-5.0) Albumin/Globulin Ratio 1.2 (1.0-1.7) Lipase 56 U/L (73-393) L Laboratory Tests 12/07/19 14:10 Laboratory Tests 12/07/19 14:10 EKG EKG []Normal sinus rhythm at a rate of 104 beats for minute, normal axis, right bundle-branch block, otherwise normal intervals, there are no acute ischemic ST/T changes, nonspecific ST/T changes are present. EKG is not significant change compared to patient's prior EKGs. Radiology/Procedures Radiology/Procedures PROCEDURE: CHEST PA & LATERAL PA and lateral views of the chest. Comparison: 05/20/2019. Indication: Chest pain Findings: The heart size is enlarged but stable. No pneumothorax or effusion. No air space or interstitial disease. The bony structures are intact. Impression: 1. No acute cardiopulmonary process. [] Course & Med Decision Making Course & Med Decision Making 3:00 PM: I was called to the patient's bedside, because she began exhibiting seizure-like activity. 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 After this the patient stated she wanted to leave the emergency department, without further treatment. She states that she has had pulmonary emboli in the past, despite having a negative blood test, which I pre sume she means a d-dimer, but she declines further testing at this time and states she merely wants to leave. She has hyper focused on her pain, but states that she is unable to see a GI doctor or outpatient physician secondary to lack of insurance. I did discuss the test results this point, the importance of close further outpatient follow-up and return precautions. The clinical suspicion for acute coronary syndrome, or other acute pathology is very low. Pertinent test results have been reviewed. the patient does complain of some ongoing nausea and I offered her some nausea medication but she declined at this time. Dragon Disclaimer Dragon Disclaimer This electronic medical record was generated, in whole or in part, using a voice recognition dictation system. Departure Departure Impression: Primary Impression: Chest pain Additional Impression: Chronic pain Disposition: HOME, SELF-CARE Condition: STABLE Referrals: GREGORIA VALADEZ MD Patient Instructions: Chest Pain (Nonspecific), Chronic Pain, Gastroesophageal Reflux Disease, Adult Problem Qualifiers MARCOS CARVER MD Dec 07, 2019 13:43
[2019-12-07] MEDS ORDERED: MAG HYDROX/ALUMINUM HYD/SIMETH 30 ML ORAL.SUSP PO ONE (13:45)
[2019-12-07] MEDS ORDERED: ASPIRIN CHEWABLE 81 MG TABLET. PO ONE (13:45)
--- NOTE | 2019-12-07 14:05 | RAD ---
PA and lateral views of the chest. Comparison: 05/20/2019. Indication: Chest pain Findings: The heart size is enlarged but stable. No pneumothorax or effusion. No air space or interstitial disease. The bony structures are intact. Impression: 1. No acute cardiopulmonary process. Electronically signed by: Jovon Sprague MD (12/07/2019 2:02 PM) [facility]
[2019-12-07 14:26] LABS: BASO % 1 % (0-3); EOS # 0.5 x10^3/uL (0.0-0.7); EOS % 5 % (0-3); HEMATOCRIT 36.8 % (36.0-47.0); HEMOGLOBIN 12.4 g/dL (12.0-15.5); LYMPH # 2.5 x10^3/uL (1.0-4.8); LYMPH % 26 % (24-48); MEAN CORPUSCULAR HEMOGLOBIN 32 pg (25-35); MEAN CORPUSCULAR HGB CONC 34 g/dL (31-37); MEAN CORPUSCULAR VOLUME 95 fL (79-100); MONO # 0.6 x10^3/uL (0.0-1.1); MONO % 6 % (0-9); NEUT # 5.9 x10^3/uL (1.8-7.7); NEUT % 62 % (31-73); PLATELET COUNT 480 x10^3/uL (140-400); RED BLOOD COUNT 3.87 x10^6/uL (3.50-5.40); RED CELL DISTRIBUTION WIDTH 13.5 % (11.5-14.5); WHITE BLOOD COUNT 9.5 x10^3/uL (4.0-11.0)
--- NOTE | 2019-12-07 14:26 | EKG ---
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
[2019-12-07 14:34] LABS: CALCIUM 9.8 mg/dL (8.5-10.1); CREATININE 0.9 mg/dL (0.6-1.0); POTASSIUM 4.1 mmol/L (3.5-5.1); PROTHROMBIN TIME PATIENT 12.8 SEC (11.7-14.0)
[2019-12-07 14:35] VITALS: BP 140/81
[2019-12-07 14:38] LABS: D-DIMER < 0.27 ug/mlFEU (0.00-0.50)
[2019-12-07 14:40] LABS: ALBUMIN 3.9 g/dL (3.4-5.0); ALBUMIN/GLOBULIN RATIO 1.2 (1.0-1.7); TOTAL BILIRUBIN 0.2 mg/dL (0.2-1.0); TOTAL PROTEIN 7.2 g/dL (6.4-8.2)
== END 2019-12-07 15:05 | disposition home or self-care (01) ==
LOC: ER 13:18
DX: G89.29 Other chronic pain (principal); R07.89 Other chest pain; R05 Cough; R10.10 Upper abdominal pain, unspecified; R06.02 Shortness of breath; I50.9 Heart failure, unspecified; J44.9 Chronic obstructive pulmonary disease, unspecified; E78.00 Pure hypercholesterolemia, unspecified; I10 Essential (primary) hypertension; I25.2 Old myocardial infarction; Z87.442 Personal history of urinary calculi; Z87.11 Personal history of peptic ulcer disease; Z90.89 Acquired absence of other organs; Z86.718 Personal history of other venous thrombosis and embolism; Z90.49 Acquired absence of other specified parts of digestive tract; Z90.710 Acquired absence of both cervix and uterus; Z98.890 Other specified postprocedural states; Z88.0 Allergy status to penicillin; Z88.2 Allergy status to sulfonamides; Z98.84 Bariatric surgery status; Z88.8 Allergy status to other drugs, medicaments and biological substances; Z88.1 Allergy status to other antibiotic agents
CPT/HCPCS: 36415; 71046; 80053; 83690; 83880; 84484; 85025; 85379; 85610; 93005; 99285

== ENCOUNTER 2019-12-26 18:58 | Emergency (ER) | payer SELFPAY ==
[~2019-12-26] VITALS: Ht 172.7 cm; Wt 114.2 kg
--- NOTE | 2019-12-26 19:23 | PHYS DOC ---
Past Medical History Past Medical History: CHF, COPD, DVT, High Cholesterol, Hypertension, Kidney Stone, [place], P.U.D., Seizure, UTI, Other Additional Past Medical Histor: Pulmonary Embolism, Lupus, Bleeding Gastric Ulcers Past Surgical History: Appendectomy, Cholecystectomy, , Hysterectomy, Tonsillectomy, Other Additional Past Surgical Histo: IVC filter placed and removed Smoking Status: Current Every Day Smoker Alcohol Use: Rarely Drug Use: None Adult General Chief Complaint Chief Complaint: SEIZURE HPI HPI 44yo female with underlying history of HLD, HTN, Seizure, CHF presents to the ER with complaints of chest pain, nausea, seizure x 8. Patient has a seizure history and has been on keppra BID, she sees [facility]. States she has been taking medications however continues to have seizure activity. Patient states today she had a seizure about an hour ago with chest pain after. Patient today states she has chest pain at this time, center aspect of her chest without radiation. Pain is described as sharp. Associated symptoms include SOB, Headache. EKG reviewed at 1906, NSR, herat rate 85, no STEMi, rBBB, LAD. Nothing makes her symptoms worse, nothing makes her symptoms better. Review of Systems Review of Systems Constitutional: Denies fever or chills [] Respiratory: Denies cough or shortness of breath [] Cardiovascular: No additional information not addressed in HPI [] GI: Denies abdominal pain, + nausea, no vomiting, bloody stools or diarrhea [] : Denies dysuria or hematuria [] Musculoskeletal: Denies back pain or joint pain [] Integument: Denies rash or skin lesions [] Neurologic: + headache, focal weakness or sensory changes [] All other systems were reviewed and found to be within normal limits, except as documented in this note. Current Medications Current Medications Current Medications Medications (Trade) Dose Ordered Sig/Tex Start Time Stop Time Status Last Admin Dose Admin Acetaminophen (Tylenol) 1,000 mg 1X ONCE 12/26/19 20:45 12/26/19 20:47 DC Aspirin (Children'S Aspirin) 324 mg 1X ONCE 12/26/19 19:45 12/26/19 19:54 DC 12/26/19 19:57 324 MG Diphenhydramine HCl (Benadryl) 25 mg 1X ONCE 12/26/19 20:45 12/26/19 20:47 DC Magnesium Chloride (Mag Delay) 64 mg 1X 12/26/19 20:45 Metoclopramide HCl (Reglan Vial) 10 mg 1X ONCE 12/26/19 20:45 12/26/19 20:47 DC Nitroglycerin (Nitrostat) 0.4 mg PRN Q5MIN PRN 12/26/19 19:45 12/26/19 19:58 0.4 MG Ondansetron HCl (Zofran) 4 mg 1X ONCE 12/26/19 20:00 12/26/19 20:01 DC 12/26/19 19:58 4 MG Allergies Allergies Allergies Coded Allergies Type Severity Reaction Last Updated Verified Cephalexin Monohydrate Allergy Intermediate 06/30/17 Yes NSAIDS (Non-Steroidal Anti-Inflamma Allergy Intermediate 09/27/17 Yes Penicillins Allergy Intermediate 06/30/17 Yes iodine Allergy Intermediate 06/30/17 Yes lidocaine Allergy Intermediate 06/30/17 Yes prochlorperazine edisylate Allergy Intermediate 06/30/17 Yes prochlorperazine maleate Allergy Intermediate 06/30/17 Yes sulfamethoxazole Allergy Intermediate 06/30/17 Yes trimethoprim Allergy Intermediate 06/30/17 Yes Physical Exam Physical Exam Constitutional: Well developed, well nourished, no acute distress, non-toxic appearance. [] HENT: Normocephalic, atraumatic, bilateral external ears normal, oropharynx moist, no oral exudates, nose normal. [] Eyes: PERRLA, EOMI, conjunctiva normal, no discharge. [] Cardiovascular:Heart rate regular rhythm, no murmur [] Lungs & Thorax: Bilateral breath sounds clear to auscultation [] Abdomen: Bowel sounds normal, soft, no tenderness, no masses, no pulsatile masses. [] Skin: Warm, dry, no erythema, no rash. [] Back: No tenderness, no CVA tenderness. [] Extremities: No tenderness, no edema. [] Neurologic: Alert and oriented X 3, no focal deficits noted. [] Psychologic: Affect normal, judgement normal, mood normal. [] Current Patient Data Vital Signs Vital Signs Date Time Temp Pulse Resp B/P (MAP) Pulse Ox O2 Delivery O2 Flow Rate FiO2 12/26/19 19:58 81 162/68 12/26/19 19:00 98.1 16 98 Room Air 98.1 Lab Values Laboratory Tests Test 12/26/19 19:50 White Blood Count 10.2 x10^3/uL (4.0-11.0) Red Blood Count 4.26 x10^6/uL (3.50-5.40) Hemoglobin 13.6 g/dL (12.0-15.5) Hematocrit 40.3 % (36.0-47.0) Mean Corpuscular Volume 94 fL (79-100) Mean Corpuscular Hemoglobin 32 pg (25-35) Mean Corpuscular Hemoglobin Concent 34 g/dL (31-37) Red Cell Distribution Width 13.3 % (11.5-14.5) Platelet Count 466 x10^3/uL (140-400) H Neutrophils (%) (Auto) 49 % (31-73) Lymphocytes (%) (Auto) 37 % (24-48) Monocytes (%) (Auto) 10 % (0-9) H Eosinophils (%) (Auto) 4 % (0-3) H Basophils (%) (Auto) 1 % (0-3) Neutrophils # (Auto) 5.0 x10^3/uL (1.8-7.7) Lymphocytes # (Auto) 3.7 x10^3/uL (1.0-4.8) Monocytes # (Auto) 1.0 x10^3/uL (0.0-1.1) Eosinophils # (Auto) 0.4 x10^3/uL (0.0-0.7) Basophils # (Auto) 0.1 x10^3/uL (0.0-0.2) D-Dimer (Rozina) < 0.27 ug/mlFEU Sodium Level 137 mmol/L (136-145) Potassium Level 3.7 mmol/L (3.5-5.1) Chloride Level 103 mmol/L (98-107) Carbon Dioxide Level 23 mmol/L (21-32) Anion Gap 11 (6-14) Blood Urea Nitrogen 14 mg/dL (7-20) Creatinine 1.0 mg/dL (0.6-1.0) Estimated GFR (Cockcroft-Gault) 60.2 BUN/Creatinine Ratio 14 (6-20) Glucose Level 91 mg/dL (70-99) Lactic Acid Level 0.7 mmol/L (0.4-2.0) Calcium Level 9.0 mg/dL (8.5-10.1) Magnesium Level 1.6 mg/dL (1.8-2.4) L Total Bilirubin 0.4 mg/dL (0.2-1.0) Aspartate Amino Transferase (AST) 8 U/L (15-37) L Alanine Aminotransferase (ALT) 13 U/L (14-59) L Alkaline Phosphatase 59 U/L (46-116) Troponin I Quantitative < 0.017 ng/mL (0.000-0.055) Total Protein 7.5 g/dL (6.4-8.2) Albumin 4.0 g/dL (3.4-5.0) Albumin/Globulin Ratio 1.1 (1.0-1.7) Laboratory Tests 12/26/19 19:50 Laboratory Tests 12/26/19 19:50 EKG EKG EKG reviewed, see description in HPI[] Radiology/Procedures Radiology/Procedures [facility] [address] [place] [address] IMAGING REPORT Signed PATIENT: TRACIE GAONA SACCOUNT: [id number] : 1975 LOCATION: ER AGE: 44 SEX: F EXAM STATUS: PRE ER ORD. PHYSICIAN: EFRA CHO MD REASON: recurrent seizure PROCEDURE: CT HEAD WO CONTRAST Exam: CT head INDICATION: Recurrent seizure TECHNIQUE: Sequential axial images through the head were obtained without the administration of IV contrast. Comparisons: None FINDINGS: No focal parenchymal lesion or hemorrhage is identified. There is no midline shift or sulcal effacement. No acute vascular territory infarction is identified. Chatman-white distinction is preserved. The ventricular system is within normal limits without compression hydrocephalus. The basal cisterns are well maintained. Stable overlying cerebellar tonsils. Mild mucosal thickening is noted within the sphenoid sinuses. The visualized portions of the paranasal sinuses and mastoid air cells are well-pneumatized. No acute fractures. IMPRESSION: No acute intracranial abnormality. Sinus disease as described above. Exposure: One or more of the following in the visualized dose reduction techniques were utilized for this examination: 1. Automated exposure control 2. Adjustment of the MA and/or KV according to patient size Use of iterative of reconstructive technique Electronically signed by: Sneha Qureshi MD (12/26/2019 8:00 PM) [id number] DICTATED and SIGNED BY: SNEHA QURESHI MD DATE: 12/26/191999 [] Course & Med Decision Making Course & Med Decision Making Pertinent Labs and Imaging studies reviewed. (See chart for details) []44yo female with underlying history of HLD, HTN, Seizure, CHF presents to the ER with complaints of chest pain, nausea, seizure x 8. Patient has a seizure history and has been on keppra BID, she sees [facility]. States she has been taking medications however continues to have seizure activity. Patient states today she had a seizure about an hour ago with chest pain after. Patient today states she has chest pain at this time, center aspect of her chest without radiation. Pain is described as sharp. Associated symptoms include SOB, Headache. EKG reviewed at 1906, NSR, herat rate 85, no STEMi, rBBB, LAD. Nothing makes her symptoms worse, nothing makes her symptoms better Dragon Disclaimer Dragon Disclaimer This electronic medical record was generated, in whole or in part, using a voice recognition dictation system. Departure Departure Impression: Primary Impression: Seizure-like activity Additional Impressions: Chest pain of uncertain etiology Hypomagnesemia Headache Disposition: 01 HOME, SELF-CARE Condition: IMPROVED Referrals: NO PCP (PCP) Patient Instructions: Chest Pain (Nonspecific)-Brief, Hypomagnesemia, Nonepileptic Seizures-Brief Additional Instructions: Recommend follow up with PCP regarding seizure activity Headache - CT negative, tylenol for pain Labs reveal normal trop, however magnesium level low, replaced in ER Return to the nearest ER for altered mental status, fever Problem Qualifiers Additional Impressions: Headache Headache type: unspecified Headache chronicity pattern: acute headache I ntractability: not intractable Qualified Codes: R51 - Headache EFRA CHO MD Dec 26, 2019 19:23
[2019-12-26] MEDS ORDERED: ASPIRIN CHEWABLE 81 MG TABLET. PO ONE (19:45)
[2019-12-26] MEDS ORDERED: NITROGLYCERIN SUBLINGUAL 0.4 MG BOTTLE OF 25. SL PRN (19:45)
[2019-12-26] MEDS ORDERED: ONDANSETRON PF 4 MG/2 ML VIAL. ONE (19:54)
[2019-12-26] MEDS ORDERED: ONDANSETRON PF 4 MG/2 ML VIAL. IVP ONE (20:00)
--- NOTE | 2019-12-26 20:03 | RAD ---
Exam: CT head INDICATION: Recurrent seizure TECHNIQUE: Sequential axial images through the head were obtained without the administration of IV contrast. Comparisons: None FINDINGS: No focal parenchymal lesion or hemorrhage is identified. There is no midline shift or sulcal effacement. No acute vascular territory infarction is identified. Chatman-white distinction is preserved. The ventricular system is within normal limits without compression hydrocephalus. The basal cisterns are well maintained. Stable overlying cerebellar tonsils. Mild mucosal thickening is noted within the sphenoid sinuses. The visualized portions of the paranasal sinuses and mastoid air cells are well-pneumatized. No acute fractures. IMPRESSION: No acute intracranial abnormality. Sinus disease as described above. Exposure: One or more of the following in the visualized dose reduction techniques were utilized for this examination: 1. Automated exposure control 2. Adjustment of the MA and/or KV according to patient size Use of iterative of reconstructive technique Electronically signed by: Sneha Cameron MD (12/26/2019 8:00 PM) [id number]
[2019-12-26 20:15] LABS: BASO # 0.1 x10^3/uL (0.0-0.2); BASO % 1 % (0-3); EOS # 0.4 x10^3/uL (0.0-0.7); EOS % 4 % (0-3); HEMATOCRIT 40.3 % (36.0-47.0); HEMOGLOBIN 13.6 g/dL (12.0-15.5); LYMPH # 3.7 x10^3/uL (1.0-4.8); LYMPH % 37 % (24-48); MEAN CORPUSCULAR HEMOGLOBIN 32 pg (25-35); MEAN CORPUSCULAR HGB CONC 34 g/dL (31-37); MEAN CORPUSCULAR VOLUME 94 fL (79-100); MONO % 10 % (0-9); NEUT % 49 % (31-73); PLATELET COUNT 466 x10^3/uL (140-400); RED BLOOD COUNT 4.26 x10^6/uL (3.50-5.40); RED CELL DISTRIBUTION WIDTH 13.3 % (11.5-14.5); WHITE BLOOD COUNT 10.2 x10^3/uL (4.0-11.0)
[2019-12-26 20:22] LABS: GFR 60.2; POTASSIUM 3.7 mmol/L (3.5-5.1)
[2019-12-26 20:29] LABS: ALBUMIN/GLOBULIN RATIO 1.1 (1.0-1.7); TOTAL BILIRUBIN 0.4 mg/dL (0.2-1.0); TOTAL PROTEIN 7.5 g/dL (6.4-8.2)
[2019-12-26] MEDS ORDERED: METOCLOPRAMIDE HCL 10 MG/2 ML VIAL. IVP ONE (20:45)
[2019-12-26] MEDS ORDERED: ACETAMINOPHEN 500 MG TABLET PO ONE (20:45)
[2019-12-26] MEDS ORDERED: MAGNESIUM CHLORIDE ER 64 MG TABLET.ER PO SCH (20:45)
[2019-12-26] MEDS ORDERED: diphenhydrAMINE 50 MG/ML VIAL IVP ONE (20:45)
[2019-12-26 21:05] VITALS: BP 152/100
[2019-12-26] MEDS ORDERED: MAGNESIUM CHLORIDE ER 64 MG TABLET.ER PO ONE (21:15)
--- NOTE | 2019-12-26 22:57 | EKG ---
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
== END 2019-12-26 21:23 | disposition home or self-care (01) ==
LOC: ER 18:58
DX: R56.9 Unspecified convulsions (principal); R07.89 Other chest pain; E83.42 Hypomagnesemia; R51 Headache; I11.0 Hypertensive heart disease with heart failure; I50.9 Heart failure, unspecified; J44.9 Chronic obstructive pulmonary disease, unspecified; I25.2 Old myocardial infarction; E78.00 Pure hypercholesterolemia, unspecified; F17.200 Nicotine dependence, unspecified, uncomplicated; Z90.89 Acquired absence of other organs; Z90.49 Acquired absence of other specified parts of digestive tract; Z98.890 Other specified postprocedural states; Z87.442 Personal history of urinary calculi; Z86.718 Personal history of other venous thrombosis and embolism; Z90.710 Acquired absence of both cervix and uterus; Z88.0 Allergy status to penicillin; Z88.2 Allergy status to sulfonamides; Z88.5 Allergy status to narcotic agent; Z88.6 Allergy status to analgesic agent; Z91.048 Other nonmedicinal substance allergy status; Z79.899 Other long term (current) drug therapy
CPT/HCPCS: 36415; 70450; 80053; 83605; 83735; 84484; 85025; 85379; 93005; 96374; 96375; 99285; J1200; J2405; J2765

== ENCOUNTER 2020-01-30 00:42 | Emergency (ER) | payer SELFPAY ==
[~2020-01-30] VITALS: Ht 172.7 cm; Wt 113.6 kg
[2020-01-30] MEDS ORDERED: HYDROcodone/APAP 5/325MG 1 TAB TABLET PO ONE (01:00)
--- NOTE | 2020-01-30 01:06 | PHYS DOC ---
Past Medical History Past Medical History: CHF, COPD, DVT, High Cholesterol, Hypertension, Kidney Stone, [place], P.U.D., Seizure, UTI, Other Additional Past Medical Histor: Pulmonary Embolism, Lupus, Bleeding Gastric Ulcers Past Surgical History: Appendectomy, Cholecystectomy, , Hysterectomy, Tonsillectomy, Other Additional Past Surgical Histo: IVC filter placed and removed Smoking Status: Current Every Day Smoker Alcohol Use: Rarely Drug Use: None Adult General Chief Complaint Chief Complaint: SHOULDER INJURY [facility] HPI Patient is a 44 year old female who presents with R shoulder pain since 4 pm. The patient was going down the steps and grabbed the railing and had recoil from her shoulder and it has hurt since that time. Denies additional symptoms. Complete ROS were reviewed and found to be within normal limits, except as documented in the HPI Current Medications Current Medications Current Medications Medications (Trade) Dose Ordered Sig/Tex Start Time Stop Time Status Last Admin Dose Admin Acetaminophen/ Hydrocodone Bitart (Lortab 5/325) 1 tab 1X ONCE 01/30/20 01:00 01/30/20 01:02 DC 01/30/20 01:13 1 TAB Allergies Allergies Allergies Coded Allergies Type Severity Reaction Last Updated Verified Cephalexin Monohydrate Allergy Intermediate 06/30/17 Yes NSAIDS (Non-Steroidal Anti-Inflamma Allergy Intermediate 09/27/17 Yes Penicillins Allergy Intermediate 06/30/17 Yes iodine Allergy Intermediate 06/30/17 Yes lidocaine Allergy Intermediate 06/30/17 Yes prochlorperazine edisylate Allergy Intermediate 06/30/17 Yes prochlorperazine maleate Allergy Intermediate 06/30/17 Yes sulfamethoxazole Allergy Intermediate 06/30/17 Yes trimethoprim Allergy Intermediate 06/30/17 Yes Physical Exam Physical Exam Constitutional: Well developed, well nourished, no acute distress, non-toxic appearance. [] HENT: Normocephalic, atraumatic, bilateral external ears normal, oropharynx moist, no oral exudates, nose normal. [] Extremities: + drop arm test, Tenderness to R shoulder. Neurologic: Alert and oriented X 3 Psychologic: Affect normal, judgment normal, mood normal. [] Current Patient Data Vital Signs Vital Signs Date Time Temp Pulse Resp B/P (MAP) Pulse Ox O2 Delivery O2 Flow Rate FiO2 01/30/20 01:13 20 99 Room Air 01/30/20 00:52 98.7 99 165/101 (122) 98.7 EKG EKG [] Radiology/Procedures Radiology/Procedures [] Course & Med Decision Making Course & Med Decision Making Pertinent Labs and Imaging studies reviewed. (See chart for details) Will get imaging. I suspect that the patient tore her rotator cuff. Will put in sling and will refer her to her primary care physician for an MRI. Dragon Disclaimer Dragon Disclaimer This electronic medical record was generated, in whole or in part, using a voice recognition dictation system. Departure Departure Impression: Primary Impression: Shoulder pain Disposition: HOME, SELF-CARE Condition: STABLE Referrals: UNKNOWN PCP NAME (PCP) Patient Instructions: Rotator Cuff Injury Additional Instructions: Thank you for visiting [facility]. We appreciate you trusting us with your care. If any additional problems come up don't hesitate to return to visit us. Please follow up with your primary care provider so they can plan additional care if needed and know about the problem that you had. If symptoms worsen come back to the Emergency Department. Any concerning symptoms that start such as chest pain, shortness of air, weakness or numbness on one side of the body, running high fevers or any other concerning symptoms return to the ER. Please follow-up with your primary care doctor to obtain an MRI. Problem Qualifiers Primary Impression: Shoulder pain Chronicity: acute Laterality: right Qualified Codes: M25.511 - Pain in right shoulder MANNINGGREGORIA STALEY SHARRON Jan 30, 2020 01:06
--- NOTE | 2020-01-30 01:39 | RAD ---
SHOULDER 2+V RIGHT DATE: 01/30/2020 12:58 AM INDICATION: Shoulder pain COMPARISON: None. FINDINGS: Bones: There is no evidence of acute fracture or dislocation. Joints: The joint spaces are normal. The acromiohumeral distance is not narrowed. Miscellaneous: No abnormal soft tissue calcifications in the shoulder. IMPRESSION: No evidence of acute fracture. Electronically signed by: Prudencio Leigh MD (01/30/2020 1:36 AM) [id number]
[2020-01-30 01:46] VITALS: BP 140/91
== END 2020-01-30 01:46 | disposition home or self-care (01) ==
LOC: ER 00:42
DX: M25.511 Pain in right shoulder (principal); I11.0 Hypertensive heart disease with heart failure; I50.9 Heart failure, unspecified; J44.9 Chronic obstructive pulmonary disease, unspecified; E78.00 Pure hypercholesterolemia, unspecified; F17.200 Nicotine dependence, unspecified, uncomplicated; I25.2 Old myocardial infarction; Z86.711 Personal history of pulmonary embolism; Z86.718 Personal history of other venous thrombosis and embolism; Z90.89 Acquired absence of other organs; Z90.49 Acquired absence of other specified parts of digestive tract; Z90.710 Acquired absence of both cervix and uterus; Z98.890 Other specified postprocedural states; Z88.0 Allergy status to penicillin; Z88.2 Allergy status to sulfonamides; Z88.1 Allergy status to other antibiotic agents; Z88.5 Allergy status to narcotic agent; Z88.6 Allergy status to analgesic agent; Z88.4 Allergy status to anesthetic agent
CPT/HCPCS: 73030; 99284

== ENCOUNTER 2020-02-17 01:17 | Emergency (ER) | payer SELFPAY ==
[~2020-02-17] VITALS: Ht 172.7 cm; Wt 113.6 kg
[2020-02-17 01:48] LABS: BASO # 0.2 x10^3/uL (0.0-0.2); BASO % 1 % (0-3); EOS # 1.5 x10^3/uL (0.0-0.7); EOS % 10 % (0-3); HEMATOCRIT 33.6 % (36.0-47.0); HEMOGLOBIN 11.7 g/dL (12.0-15.5); LYMPH # 4.6 x10^3/uL (1.0-4.8); LYMPH % 31 % (24-48); MEAN CORPUSCULAR HEMOGLOBIN 33 pg (25-35); MEAN CORPUSCULAR HGB CONC 35 g/dL (31-37); MEAN CORPUSCULAR VOLUME 94 fL (79-100); MONO # 1.2 x10^3/uL (0.0-1.1); MONO % 8 % (0-9); NEUT # 7.5 x10^3/uL (1.8-7.7); NEUT % 50 % (31-73); PLATELET COUNT 593 x10^3/uL (140-400); RED BLOOD COUNT 3.59 x10^6/uL (3.50-5.40); RED CELL DISTRIBUTION WIDTH 13.1 % (11.5-14.5); WHITE BLOOD COUNT 14.9 x10^3/uL (4.0-11.0)
--- NOTE | 2020-02-17 02:01 | RAD ---
EXAM: CHEST ONE VIEW. HISTORY: Chest pain. COMPARISON: 12/07/2019. FINDINGS: A frontal view of the chest is obtained. There are no confluent infiltrates. There is no pneumothorax or pleural effusion. The heart is not enlarged. IMPRESSION: 1. No confluent infiltrates. Electronically signed by: Teo Caballero MD (02/17/2020 1:57 AM) [facility]
[2020-02-17 02:02] LABS: CREATININE 0.9 mg/dL (0.6-1.0); POTASSIUM 4.4 mmol/L (3.5-5.1)
[2020-02-17 02:08] LABS: ALBUMIN 3.5 g/dL (3.4-5.0); ALBUMIN/GLOBULIN RATIO 0.9 (1.0-1.7); TOTAL BILIRUBIN 0.4 mg/dL (0.2-1.0); TOTAL PROTEIN 7.3 g/dL (6.4-8.2)
[2020-02-17 02:12] LABS: % EOS 8 % (0-5); % LYMPHS 23 % (24-48); % MONOS 13 % (0-10); % SEGS 56 % (35-66); PLT ESTIMATE INCREASED (ADEQUATE); TOXIC GRANULATION SLIGHT
[2020-02-17] MEDS ORDERED: ONDANSETRON ODT 4 MG TAB.RAPDIS. PO ONE (02:15)
[2020-02-17] MEDS ORDERED: ONDA4TAB7 PO (02:18)
[2020-02-17 02:44] VITALS: BP 153/63
[2020-02-17] MEDS ORDERED: ACETAMINOPHEN 500 MG TABLET PO ONE (03:00)
--- NOTE | 2020-02-17 04:08 | PHYS DOC ---
Past Medical History Past Medical History: CHF, COPD, DVT, High Cholesterol, Hypertension, Kidney Stone, [place], P.U.D., Seizure, UTI, Other Additional Past Medical Histor: Pulmonary Embolism, Lupus, Bleeding Gastric Ulcers Past Surgical History: Appendectomy, Cholecystectomy, , Hysterectomy, Tonsillectomy, Other Additional Past Surgical Histo: IVC filter placed and removed Smoking Status: Current Every Day Smoker Alcohol Use: Rarely Drug Use: None Adult General Chief Complaint Chief Complaint: CHEST PAIN-CARDIAC NATURE HPI HPI Patient is a 44 year old female with history of lupus, PE, COPD, anxiety multiple other medical car reviewed who presents with acute onset left apical chest pain starting 30 minutes prior to ED arrival. Pain is described as sharp worse with deep breathing and movement. Pain is not associated with shortness of breath fever chills sweats. Reports nausea without vomiting.. Denies increased leg pain or swelling. No other acute symptoms or complaints. [] Review of Systems Review of Systems ROS as per HPI All other systems were reviewed and found to be within normal limits, except as documented in this note. Current Medications Current Medications Current Medications Medications (Trade) Dose Ordered Sig/Tex Start Time Stop Time Status Last Admin Dose Admin Acetaminophen (Tylenol) 1,000 mg 1X ONCE 02/17/20 03:00 02/17/20 02:51 DC 02/17/20 02:33 1,000 MG Ondansetron HCl (Zofran Odt) 4 mg 1X ONCE 02/17/20 02:15 02/17/20 02:16 DC 02/17/20 02:13 4 MG Allergies Allergies Allergies Coded Allergies Type Severity Reaction Last Updated Verified Cephalexin Monohydrate Allergy Intermediate 06/30/17 Yes NSAIDS (Non-Steroidal Anti-Inflamma Allergy Intermediate 09/27/17 Yes Penicillins Allergy Intermediate 06/30/17 Yes iodine Allergy Intermediate 06/30/17 Yes lidocaine Allergy Intermediate 06/30/17 Yes prochlorperazine edisylate Allergy Intermediate 06/30/17 Yes prochlorperazine maleate Allergy Intermediate 06/30/17 Yes sulfamethoxazole Allergy Intermediate 06/30/17 Yes trimethoprim Allergy Intermediate 06/30/17 Yes Physical Exam Physical Exam Constitutional: Well developed, well nourished, no acute distress, anxious. [] HENT: Normocephalic, atraumatic, bilateral external ears normal, oropharynx moist, no oral exudates, nose normal. [] Eyes: PERRLA, EOMI, conjunctiva normal, no discharge. [] Neck: Normal range of motion, no tenderness, supple, no stridor. [] Cardiovascular:Heart rate regular rhythm, no murmur [] Lungs & Thorax: Bilateral breath sounds clear to auscultation [] Abdomen: Bowel sounds normal, soft, no tenderness, no masses. [] Skin: Warm, dry, no erythema, no rash. [] Back: No tenderness, no CVA tenderness. [] Extremities: No tenderness, no cyanosis, no clubbing, ROM intact, no edema. [] Neurologic: Alert and oriented X 3, normal motor function, normal sensory function, no focal deficits noted. [] Psychologic: Affect anxois, judgement normal, mood normal. [] Current Patient Data Vital Signs Vital Signs Date Time Temp Pulse Resp B/P (MAP) Pulse Ox O2 Delivery O2 Flow Rate FiO2 02/17/20 02:44 82 153/63 (93) 96 Room Air 02/17/20 01:30 98.6 18 98.6 Lab Values Laboratory Tests Test 02/17/20 01:40 White Blood Count 14.9 x10^3/uL (4.0-11.0) H Red Blood Count 3.59 x10^6/uL (3.50-5.40) Hemoglobin 11.7 g/dL (12.0-15.5) L Hematocrit 33.6 % (36.0-47.0) L Mean Corpuscular Volume 94 fL (79-100) Mean Corpuscular Hemoglobin 33 pg (25-35) Mean Corpuscular Hemoglobin Concent 35 g/dL (31-37) Red Cell Distribution Width 13.1 % (11.5-14.5) Platelet Count 593 x10^3/uL (140-400) H Neutrophils (%) (Auto) 50 % (31-73) Lymphocytes (%) (Auto) 31 % (24-48) Monocytes (%) (Auto) 8 % (0-9) Eosinophils (%) (Auto) 10 % (0-3) H Basophils (%) (Auto) 1 % (0-3) Neutrophils # (Auto) 7.5 x10^3/uL (1.8-7.7) Lymphocytes # (Auto) 4.6 x10^3/uL (1.0-4.8) Monocytes # (Auto) 1.2 x10^3/uL (0.0-1.1) H Eosinophils # (Auto) 1.5 x10^3/uL (0.0-0.7) H Basophils # (Auto) 0.2 x10^3/uL (0.0-0.2) Segmented Neutrophils % 56 % (35-66) Lymphocytes % 23 % (24-48) L Monocytes % 13 % (0-10) H Eosinophils % 8 % (0-5) H Toxic Granulation Slight Platelet Estimate Increased (ADEQUATE) D-Dimer (Rozina) < 0.27 ug/mlFEU Sodium Level 136 mmol/L (136-145) Potassium Level 4.4 mmol/L (3.5-5.1) Chloride Level 101 mmol/L (98-107) Carbon Dioxide Level 24 mmol/L (21-32) Anion Gap 11 (6-14) Blood Urea Nitrogen 18 mg/dL (7-20) Creatinine 0.9 mg/dL (0.6-1.0) Estimated GFR (Cockcroft-Gault) 68.0 BUN/Creatinine Ratio 20 (6-20) Glucose Level 113 mg/dL (70-99) H Calcium Level 9.0 mg/dL (8.5-10.1) Total Bilirubin 0.4 mg/dL (0.2-1.0) Aspartate Amino Transferase (AST) 22 U/L (15-37) Alanine Aminotransferase (ALT) 23 U/L (14-59) Alkaline Phosphatase 79 U/L (46-116) Troponin I Quantitative < 0.017 ng/mL (0.000-0.055) NI-Qdx-T-Type Natriuretic Peptide 89 pg/mL (0-124) Total Protein 7.3 g/dL (6.4-8.2) Albumin 3.5 g/dL (3.4-5.0) Albumin/Globulin Ratio 0.9 (1.0-1.7) L Laboratory Tests 02/17/20 01:40 Laboratory Tests 02/17/20 01:40 EKG EKG [EKG: reviewed] Radiology/Procedures Radiology/Procedures [CXR: NAD per radiology report] Course & Med Decision Making Course & Med Decision Making Pertinent Labs and Imaging studies reviewed. (See chart for details) [Patient anxious with chest wall pain and COPD. D-dimer negative. Patient is not hypoxic or tachypnea.Recommend supoortive care with PCP follow up. ] Re Disclaimer Re Disclaimer This electronic medical record was generated, in whole or in part, using a voice recognition dictation system. Departure Departure Impression: Primary Impression: Nausea Additional Impressions: Anxiety Chest wall pain Disposition: HOME, SELF-CARE Condition: STABLE Patient Instructions: Anxiety and Panic Attacks, [id number], Chest Wall Pain, [id number], Nausea, Adult, [id number] Additional Instructions: Please take nausea occasions as directed and resume home medications. Follow-up with your PCP in 2-3 days for reevaluation. Return to the ED if new or worsening symptoms.. Scripts Ondansetron Hcl (ZOFRAN) 4 Mg Tablet 1 TAB PO Q6HRS, #10 TAB 0 Refills Prov: MARY ELLEN WILLARD DO 02/17/20 Problem Qualifiers MARY ELLEN WILLARD DO Feb 17, 2020 04:08
== END 2020-02-17 02:39 | disposition home or self-care (01) ==
LOC: ER 01:17
DX: F41.9 Anxiety disorder, unspecified (principal); R07.1 Chest pain on breathing; R11.0 Nausea; I11.0 Hypertensive heart disease with heart failure; I50.9 Heart failure, unspecified; E78.00 Pure hypercholesterolemia, unspecified; J44.9 Chronic obstructive pulmonary disease, unspecified; F17.200 Nicotine dependence, unspecified, uncomplicated; I25.2 Old myocardial infarction; Z86.718 Personal history of other venous thrombosis and embolism; Z88.0 Allergy status to penicillin; Z88.1 Allergy status to other antibiotic agents; Z88.2 Allergy status to sulfonamides; Z88.4 Allergy status to anesthetic agent; Z88.8 Allergy status to other drugs, medicaments and biological substances
CPT/HCPCS: 36415; 71045; 80053; 83880; 84484; 85007; 85025; 85379; 99284; Q0162

== ENCOUNTER 2020-04-03 13:07 | Inpatient (IN) | payer SELFPAY ==
[~2020-04-03] VITALS: Ht 172.7 cm; Wt 110.8 kg
[~2020-04-03 13:07] MED LIST changes: +ACET325T9 PO; +DOCU-153 PO; +DOXY100C14 PO; +LACT1CAP19 PO; +LEVE500T56 PO; +LEVO500T59 PO; +ONDA4TAB7 PO; +OXYC-325 PO; +OXYC1TAB15 PO; +OXYC5CAP PO
[2020-04-03] MEDS ORDERED: IV NORMAL SALINE 1000ML BAG 1,000 ML IV SCH (14:26)
[2020-04-03 14:35] LABS: BILIRUBIN,URINE NEGATIVE (NEG); CLARITY,URINE CLEAR; COLOR,URINE YELLOW; NITRITE,URINE NEGATIVE (NEG); PROTEIN,URINE NEGATIVE (NEG-TRACE); UROBILINOGEN,URINE 0.2 mg/dL (0.2 mg/dL)
[2020-04-03 14:39] LABS: AMPHETAMINE/METHAMPHETAMINE NEG (NEG); BARBITURATES NEG (NEG); BENZODIAZEPINES NEG (NEG); CANNABINOIDS NEG (NEG); COCAINE NEG (NEG); METHADONE NEG (NEG); OPIATES POS (NEG); PHENCYCLIDINE NEG (NEG)
[2020-04-03 14:42] LABS: BACTERIA,URINE 0 /HPF (0-FEW); RBC,URINE 0 /HPF (0-2); SQUAMOUS EPITHELIAL CELL,UR MANY /LPF
[2020-04-03] MEDS ORDERED: MORPHINE SULFATE 4 MG/ML VIAL. IV ONE (15:15)
[2020-04-03] MEDS ORDERED: ONDANSETRON PF 4 MG/2 ML VIAL. IVP ONE (15:15)
--- NOTE | 2020-04-03 15:29 | PHYS DOC ---
Past Medical History Past Medical History: CHF, COPD, DVT, High Cholesterol, Hypertension, Kidney Stone, PR, P.U.D., Seizure, UTI, Other Additional Past Medical Histor: Pulmonary Embolism, Lupus, Bleeding Gastric Ulcers Past Surgical History: Appendectomy, Cholecystectomy, , Hysterectomy, Tonsillectomy, Other Additional Past Surgical Histo: IVC filter placed and removed Smoking Status: Former Smoker Alcohol Use: Rarely Drug Use: None General Adult EDM: Chief Complaint: ABDOMINAL PAIN HPI: HPI: Patient is a 44 year old female who presents with on March 14 I saw the patient in the ED and diagnosed with a perforated abdominal viscus. Dr. Judd did her surgery on March 15 and patient was discharged on March 21.. Patient is supposed to see Dr. Oglesby on this coming Friday. Patient was seen on March [address] of her abdomen pelvis done with abnormal findings. So a CT-guided drain placement was placed because there is a perigastric fluid collection. This drain is currently draining purulent thick fluid. It was also noted that she did have a small dehiscence of the abdominal incision earlier march. Abdominal incision looks to be healing but there is an area of purulent drainage. There is no redness or cellulitis around the abdominal incision area. Patient changes her dressings daily. Patient rating her pain a 10 out of 10 and states she has nausea and vomiting. Patient states this pain feels like the pain that she had before she had her surgery. Review of Systems: Review of Systems: GI: abdominal pain, nausea, vomiting, denies bloody stools or diarrhea. [] Heart Score: Risk Factors: Risk Factors: DM, Current or recent (<one month) smoker, HTN, HLP, family history of CAD, obesity. Risk Scores: Score 0 - 3: 2.5% MACE over next 6 weeks - Discharge Home Score 4 - 6: 20.3% MACE over next 6 weeks - Admit for Clinical Observation Score 7 - 10: 72.7% MACE over next 6 weeks - Early Invasive Strategies Current Medications: Current Medications Medications (Trade) Dose Ordered Sig/[facility] Start Time Stop Time Status Last Admin Dose Admin Morphine Sulfate (Morphine Sulfate) 4 mg 1X ONCE 04/03/20 15:15 04/03/20 15:16 DC Ondansetron HCl (Zofran) 4 mg 1X ONCE 04/03/20 15:15 04/03/20 15:16 DC Sodium Chloride 1,000 ml @ 1,000 mls/hr Q1H 04/03/20 14:26 04/03/20 15:25 Allergies: Allergies: Allergies Coded Allergies Type Severity Reaction Last Updated Verified Cephalexin Monohydrate Allergy Intermediate 03/18/20 Yes NSAIDS (Non-Steroidal Anti-Inflamma Allergy Intermediate 03/18/20 Yes Penicillins Allergy Intermediate 03/18/20 Yes iodine Allergy Intermediate 03/18/20 Yes lidocaine Allergy Intermediate 03/18/20 Yes prochlorperazine edisylate Allergy Intermediate 03/18/20 Yes prochlorperazine maleate Allergy Intermediate 03/18/20 Yes sulfamethoxazole Allergy Intermediate 03/18/20 Yes trimethoprim Allergy Intermediate 03/18/20 Yes Physical Exam: PE: Constitutional: Well developed, well nourished, no acute distress, non-toxic appearance. [] HENT: Normocephalic, atraumatic, bilateral external ears normal, oropharynx moist, no oral exudates, nose normal. [] Eyes: PERRLA, EOMI, conjunctiva normal, no discharge. [] Neck: Normal range of motion, no tenderness, supple, no stridor. [] Cardiovascular:Heart rate regular rhythm, no murmur [] Lungs & Thorax: Bilateral breath sounds clear to auscultation [] Abdomen: Bowel sounds normal, soft, generalized tenderness, no masses, no pulsatile masses. [] Skin: Warm, dry, no erythema, no rash. [] Back: No tenderness, no CVA tenderness. [] Extremities: No tenderness, no cyanosis, no clubbing, ROM intact, no edema. [] Neurologic: Alert and oriented X 3, normal motor function, normal sensory function, no focal deficits noted. [] Psychologic: Affect normal, judgement normal, mood normal. [] Current Patient Data: Labs: Laboratory Tests Test 04/03/20 13:30 04/03/20 13:38 Urine Collection Type Unknown Urine Color Yellow Urine Clarity Clear Urine pH 6.0 (<5.0-8.0) Urine Specific [place] 1.020 (1.000-1.030) Urine Protein Negative mg/dL (NEG-TRACE) Urine Glucose (UA) Negative mg/dL (NEG) Urine Ketones (Stick) Negative mg/dL (NEG) Urine Blood Negative (NEG) Urine Nitrite Negative (NEG) Urine Bilirubin Negative (NEG) Urine Urobilinogen Dipstick 0.2 mg/dL (0.2 mg/dL) Urine Leukocyte Esterase Negative (NEG) Urine RBC 0 /HPF (0-2) Urine WBC 5-10 /HPF (0-4) Urine Squamous Epithelial Cells Many /LPF Urine Bacteria 0 /HPF (0-FEW) Urine Mucus Mod /LPF Urine Opiates Screen Pos (NEG) Urine Methadone Screen Neg (NEG) Urine Barbiturates Neg (NEG) Urine Phencyclidine Screen Neg (NEG) Urine Amphetamine/Methamphetamine Neg (NEG) Urine Benzodiazepines Screen Neg (NEG) Urine Cocaine Screen Neg (NEG) Urine Cannabinoids Screen Neg (NEG) Urine Ethyl Alcohol Neg (NEG) POC Urine HCG, Qualitative Hcg negative (Negative) Vital Signs: Vital Signs Date Time Temp Pulse Resp B/P (MAP) Pulse Ox O2 Delivery O2 Flow Rate FiO2 04/03/20 13:44 98.5 97 16 114/55 (74) 95 Room Air 98.5 EKG: EK and read by Dr. Panchal. Sinus rhythm and no STEMI [] Radiology/Procedures: Radiology/Procedures: [] Impression: [facility] [address] [place], [place] [id number] IMAGING REPORT Signed PATIENT: TRACIE GAONAOUNT: [id number] : 1975 LOCATION: ER AGE: 44 SEX: F EXAM STATUS: REG ER ORD. PHYSICIAN: MAGDY PEOPLES APRN REASON: pain, vomiting PROCEDURE: CT ABD PEL W/ORAL CONTRST ONLY EXAM: Abdomen and pelvis CT without intravenous contrast. HISTORY: Pain. Vomiting. TECHNIQUE: Computed tomographic images of the abdomen and pelvis were obtained without intravenous contrast. Multiplanar reformatting was performed. *One or more of the following individualized dose reduction techniques were utilized for this examination: 1. Automated exposure control. 2. Adjustment of the mA and/or kV according to patient size. 3. Use of iterative reconstruction technique. COMPARISON: 03/24/2020. FINDINGS: Evaluation of the lower thorax demonstrate interval decrease in a now trace right pleural effusion and decrease in medial right middle lobe and bilateral lower lobe atelectasis or interstitial infiltrate. There is mild hepatomegaly. No focal hepatic lesion is seen on this noncontrast exam. The gallbladder is surgically absent. The pancreas, spleen and adrenal glands are unremarkable. There is a pigtail drainage catheter entering the right ventral peritoneal cavity and looped along the anterior distal gastric antrum and inferior to the gallbladder fossa. The previously demonstrated fluid collection containing gas is no longer seen in this location. There is mesenteric stranding in this location. No persistent drainable collection is seen. There is wall thickening involving the distal gastric antrum, stable in appearance. There are small nonobstructing renal stones, the largest of which measure 2 mm on the left. There is no evidence of hydronephrosis. The urinary bladder is nearly empty. The uterus is surgically absent. The adnexal regions are unremarkable. There is no evidence of bowel obstruction. There is a trace amount of fluid and stranding along a ventral abdominal wall incision due to a recent post operative hematoma/seroma. No drainable fluid correction is seen within the ventral abdominal wall. The aorta is normal in caliber. There is an inferior vena cava in expected position. There are nonspecific lymph nodes throughout the root of the mesentery and retroperitoneum. There is no suspicious osseous lesion. IMPRESSION: 1. Interval placement of a pigtail catheter within the right upper abdomen and resolution of the previously demonstrated gas-containing fluid collection along the anterior wall of the distal gastric antrum. No persistent drainable collection is seen in this location. 2. Irregular wall thickening involving the distal gastric antrum. This may be due to recent surgery, reactive changes due to ulceration or an underlying mass. This can be better assessed with endoscopy. 3. Decrease in a trace right pleural effusion and right middle lobe and bilateral lower lobe atelectasis or infiltrate. 4. Nephrolithiasis. 5. Findings consistent with a recent laparotomy. Electronically signed by: Diandra Oliveira MD (04/03/2020 6:26 PM) [facility] DICTATED and SIGNED BY: DIANDRA OLIVEIRA MD DATE: 04/03/201825 Course & Med Decision Making: Course & Med Decision Making Pertinent Labs and Imaging studies reviewed. (See chart for details) Abdomen is generalized tenderness to which the patient would hardly even let me palpate the abdomen due to pain. Abdomen feels generally soft but slightly tighter on the right side of the abdomen. Patient is very tearful. EKG shows sinus rhythm and no STEMI. Patient denies chest pain, shortness of breath, fever, diarrhea, constipation, LOC, dizziness, headache, vision changes, numbness tingling, focal weakness. I have gone over this patient history and findings with Dr Panchal. He states to do another CT Abdomen and Pelvis with oral contrast. IMPRESSION: 1. Interval placement of a pigtail catheter within the right upper abdomen and resolution of the previously demonstrated gas-containing fluid collection along the anterior wall of the distal gastric antrum. No persistent drainable collection is seen in this location. 2. Irregular wall thickening involving the distal gastric antrum. This may be due to recent surgery, reactive changes due to ulceration or an underlying mass. This can be better assessed with endoscopy. 3. Decrease in a trace right pleural effusion and right middle lobe and bilateral lower lobe atelectasis or infiltrate. 4. Nephrolithiasis. 5. Findings consistent with a recent laparotomy. Electronically signed by: Diandra Oliveira MD (04/03/2020 6:26 PM) [facility] I spoke to Dr. Minaya for admission because I cannot get the patient's pain under control. I know that she does have a history of narcotic seeking but she also has a strong history of more serious things. The CT shows irregular wall thickening involving the distal gastric antrum. Capsule system start her on Zosyn IV antibiotic and have the surgeon come and see her in the morning. [] Re Disclaimer: Re Disclaimer: This electronic medical record was generated, in whole or in part, using a voice recognition dictation system. Departure Departure Impression: Primary Impression: Uncontrolled pain Disposition: 09 ADMITTED INPATIENT Admitting Physician: JERO Condition: STABLE Referrals: UNKNOWN PCP NAME (PCP) MAGDY PEOPLES [employer] April 03, 2020 15:29
[2020-04-03 15:50] LABS: BASO # 0.1 x10^3/uL (0.0-0.2); BASO % 1 % (0-3); EOS # 0.6 x10^3/uL (0.0-0.7); EOS % 5 % (0-3); HEMATOCRIT 30.4 % (36.0-47.0); HEMOGLOBIN 10.3 g/dL (12.0-15.5); LYMPH # 2.2 x10^3/uL (1.0-4.8); LYMPH % 19 % (24-48); MEAN CORPUSCULAR HEMOGLOBIN 31 pg (25-35); MEAN CORPUSCULAR HGB CONC 34 g/dL (31-37); MEAN CORPUSCULAR VOLUME 90 fL (79-100); MONO # 1.2 x10^3/uL (0.0-1.1); MONO % 10 % (0-9); NEUT # 7.4 x10^3/uL (1.8-7.7); NEUT % 64 % (31-73); PLATELET COUNT 868 x10^3/uL (140-400); RED BLOOD COUNT 3.36 x10^6/uL (3.50-5.40); RED CELL DISTRIBUTION WIDTH 13.9 % (11.5-14.5); WHITE BLOOD COUNT 11.6 x10^3/uL (4.0-11.0)
[2020-04-03 15:59] LABS: CALCIUM 8.6 mg/dL (8.5-10.1); GFR 60.2; POTASSIUM 4.2 mmol/L (3.5-5.1); PROTHROMBIN TIME PATIENT 14.6 SEC (11.7-14.0)
[2020-04-03 16:05] LABS: ALBUMIN 2.6 g/dL (3.4-5.0); ALBUMIN/GLOBULIN RATIO 0.6 (1.0-1.7); TOTAL BILIRUBIN 0.2 mg/dL (0.2-1.0); TOTAL PROTEIN 6.8 g/dL (6.4-8.2)
[2020-04-03] MEDS ORDERED: fentaNYL PF VIAL 100 MCG/2 ML VIAL IVP ONE ×2 (17:30→18:30)
--- NOTE | 2020-04-03 18:29 | RAD ---
EXAM: Abdomen and pelvis CT without intravenous contrast. HISTORY: Pain. Vomiting. TECHNIQUE: Computed tomographic images of the abdomen and pelvis were obtained without intravenous contrast. Multiplanar reformatting was performed. *One or more of the following individualized dose reduction techniques were utilized for this examination: 1. Automated exposure control. 2. Adjustment of the mA and/or kV according to patient size. 3. Use of iterative reconstruction technique. COMPARISON: 03/24/2020. FINDINGS: Evaluation of the lower thorax demonstrate interval decrease in a now trace right pleural effusion and decrease in medial right middle lobe and bilateral lower lobe atelectasis or interstitial infiltrate. There is mild hepatomegaly. No focal hepatic lesion is seen on this noncontrast exam. The gallbladder is surgically absent. The pancreas, spleen and adrenal glands are unremarkable. There is a pigtail drainage catheter entering the right ventral peritoneal cavity and looped along the anterior distal gastric antrum and inferior to the gallbladder fossa. The previously demonstrated fluid collection containing gas is no longer seen in this location. There is mesenteric stranding in this location. No persistent drainable collection is seen. There is wall thickening involving the distal gastric antrum, stable in appearance. There are small nonobstructing renal stones, the largest of which measure 2 mm on the left. There is no evidence of hydronephrosis. The urinary bladder is nearly empty. The uterus is surgically absent. The adnexal regions are unremarkable. There is no evidence of bowel obstruction. There is a trace amount of fluid and stranding along a ventral abdominal wall incision due to a recent post operative hematoma/seroma. No drainable fluid correction is seen within the ventral abdominal wall. The aorta is normal in caliber. There is an inferior vena cava in expected position. There are nonspecific lymph nodes throughout the root of the mesentery and retroperitoneum. There is no suspicious osseous lesion. IMPRESSION: 1. Interval placement of a pigtail catheter within the right upper abdomen and resolution of the previously demonstrated gas-containing fluid collection along the anterior wall of the distal gastric antrum. No persistent drainable collection is seen in this location. 2. Irregular wall thickening involving the distal gastric antrum. This may be due to recent surgery, reactive changes due to ulceration or an underlying mass. This can be better assessed with endoscopy. 3. Decrease in a trace right pleural effusion and right middle lobe and bilateral lower lobe atelectasis or infiltrate. 4. Nephrolithiasis. 5. Findings consistent with a recent laparotomy. Electronically signed by: Diandra Dumont MD (04/03/2020 6:26 PM) [facility]
[2020-04-03] MEDS ORDERED: ONDANSETRON PF 4 MG/2 ML VIAL. IV PRN (19:00)
[2020-04-03] MEDS: fentaNYL PF VIAL 100 MCG/2 ML VIAL IV PRN ×2 (19:28→20:39)
[2020-04-03] MEDS: IV NORMAL SALINE 1000ML BAG 1,000 ML IV SCH (20:41)
[2020-04-03 21:00] VITALS: BP 108/70
[2020-04-03] MEDS: MORPHINE SULFATE 2 MG/ML VIAL. IV PRN ×2 (21:47→22:17)
[2020-04-03 23:00] VITALS: BP 160/83
[2020-04-04] VITALS (7 sets, daily range): BP systolic 80–126; BP diastolic 22–92
[2020-04-04] MEDS: MORPHINE SULFATE 4 MG/ML VIAL. IV PRN ×5 (00:22→09:38)
--- NOTE | 2020-04-04 05:08 | EKG ---
[facility] [address] [place] [address] Test Date: 2020-04-03 Test Time: 14:49:13 Pat Name: TRACIE GAONA Department: Room: 444 1 Gender: F On Line Csr: : 1975 Requested By: MAGDY PEOPLES Order Number: [id number] Reading MD: Cesar Alvarez Measurements Intervals Driver Rate: 94 P: 34 TN: 152 QRS: -2 QRSD: 98 T: 36 QT: 354 QTc: 448 Interpretive Statements SINUS RHYTHM LEFTWARD AXIS Electronically Signed On 04-04-2020 15:50:06 CDT by Cesar Alvarez
[2020-04-04] MEDS ORDERED: ACETAMINOPHEN 325 MG TABLET. PO PRN (07:45)
[2020-04-04] MEDS ORDERED: DOCUSATE SODIUM 100 MG CAPSULE. PO PRN (07:45)
[2020-04-04] MEDS ORDERED: oxyCODONE/APAP 5/325 1 TAB TABLET PO PRN (07:45)
[2020-04-04] MEDS ORDERED: ONDANSETRON ODT 4 MG TAB.RAPDIS. PO PRN (07:45)
--- NOTE | 2020-04-04 08:01 | PDOC1 ---
History and Physical Date of Admission Date of Admission DATE: 04/04/20 TIME: 07:48 Identification/Chief Complaint Chief Complaint Abdominal pain Source Source: Patient History of Present Illness History of Present Illness Ms Goncalves is a 44yo F w/ PMHx COPD, DVT s/p IVC filter, hypercholesterolemia, hypertension, kidney stones, myocardial infarction, peptic ulcer disease (perforated s/p gopal patch), seizures, anxiety/depression, BP disorder, questionable history of lupus and morbid obesity who comes to the ED on 04/03/2020 after vomiting after eating a tilapia filet and notes worsening abdominal pain. She has requested hydrocodone by name, notes she doesn't think oxycodone works for her. She was discharged on 03/21, returned to the hospital due to abdominal pain and small separation of her incision on March 24- and CT of her abdomen pelvis done with abnormal findings and on 03/27 CT-guided drain placement was placed by IR. This drain is currently draining purulent thick fluid, cultures negative for bacterial or fungal growth. She was on micafungin, levaquin and vancomycin and was discharged on flagyl, levaquin, and doxycycline for 7 days to complete on 04/07/2020. Abdominal incision looks to be healing but has drainage. There is no redness or cellulitis around the abdominal incision area. Patient changes her dressings daily. Patient rating her pain a 10 out of 10 and states she has nausea and vomiting. Patient states this pain feels like the pain that she had before she had her surgery. Has a mild appetite currently. No complications passing her urine. Denies any rashes. No gross shortness of breath. Of note, she has had over 20 ED visits in the last year for various pain complaints. CT abdomen/pelvis overall improved from prior, resolution of the previously demonstrated gas-containing fluid collection along the anterior wall of the distal gastric antrum. WBC 11.6, Hb 10.3, Platelets 868, Na 136, K 4.2, BUN 9, Cr 1, glucose 89, Alkaline phosphatase 142, INR 1.2, Albumin 2.6. Admitted for further care. Past Medical History Cardiovascular: No pertinent hx Pulmonary: COPD, Pulmonary embolus GI: GERD, Gastritis, Peptic Ulcer disease, Other Heme/Onc: No pertinent hx Hepatobiliary: No pertinent hx Psych: No pertinent hx Musculoskeletal: low back pain Rheumatologic: Other Endocrine: No pertinent hx Past Surgical History Past Surgical History: Appendectomy, Cholecystectomy, , Hysterectomy Family History Family History: Alzheimer's Disease Social History Smoke: 1 pack per day ALCOHOL: rare Drugs: None Current Problem List Problem List Problems Medical Problems: (1) Uncontrolled pain Status: Acute Current Medications Current Medications Current Medications Sodium Chloride 1,000 ml @ 1,000 mls/hr Q1H IV Last administered on 04/03/20 14:26; Start 04/03/20 at 14:26; Stop 04/03/20 at 15:25; Status DC Morphine Sulfate (Morphine Sulfate) 4 mg 1X ONCE IV Last administered on 04/03/20at 15:58; Start 04/03/20 at 15:15; Stop 04/03/20 at 15:16; Status DC Ondansetron HCl (Zofran) 4 mg 1X ONCE IVP Last administered on 04/03/20at 15:57; Start 04/03/20 at 15:15; Stop 04/03/20 at 15:16; Status DC Fentanyl Citrate (Fentanyl 2ml Vial) 50 mcg 1X ONCE IVP Last administered on 04/03/20at 17:33; Start 04/03/20 at 17:30; Stop 04/03/20 at 17:31; Status DC Fentanyl Citrate (Fentanyl 2ml Vial) 50 mcg 1X ONCE IVP ; Start 04/03/20 at 18:30; Stop 04/03/20 at 18:31; Status DC Ondansetron HCl (Zofran) 4 mg PRN Q8HRS PRN IV NAUSEA/VOMITING Last administered on 04/03/20at 20:19; Start 04/03/20 at 19:00; Stop 04/04/20 at 18:59 Fentanyl Citrate (Fentanyl 2ml Vial) 50 mcg PRN Q1HR PRN IV PAIN Last administered on 04/03/20at 20:39; Start 04/03/20 at 19:00; Stop 04/04/20 at 18:59 Sodium Chloride 1,000 ml @ 100 mls/hr Q10H IV Last administered on 04/03/20at 20:41; Start 04/03/20 at 18:46; Stop 04/04/20 at 18:45 Morphine Sulfate (Morphine Sulfate) 2 mg PRN Q2HR PRN IV MODERATE PAIN 4-6 Last administered on 04/03/20at 22:17; Start 04/03/20 at 21:30 Morphine Sulfate (Morphine Sulfate) 4 mg PRN Q2HR PRN IV SEVERE PAIN 7-10 Last administered on 04/04/20at 07:39; Start 04/03/20 at 21:30 Active Scripts Active Doxycycline Monohydrate 100 Mg Capsule 1 Cap PO BID 7 Days Culturelle (Lactobacillus Rhamnosus Gg) 1 Each Cap.sprink 1 Cap PO BID 30 Days Dok (Docusate Sodium) 100 Mg Capsule 100 Mg PO PRN BID PRN 30 Days Tylenol (Acetaminophen) 325 Mg Tablet 650 Mg PO PRN Q4HRS PRN 30 Days Pepcid (Famotidine) 20 Mg Tablet 20 Mg PO BID Zofran Odt (Ondansetron) 4 Mg Tab.rapdis 1 Tab SL Q8HRS PRN Reported Percocet 5-325 mg Tablet (Oxycodone HCl/Acetaminophen) 1 Each Tablet 1 Each PO PRN Q4HRS PRN Flagyl (Metronidazole) 500 Mg Tablet 1 Tab PO Q6HRS Levaquin (Levofloxacin) 500 Mg Tablet 1 Tab PO DAILY 7 Days Keppra (Levetiracetam) 500 Mg Tablet 500 Mg PO BID Carafate (Sucralfate) 1 Gm Tablet 1 Tab PO QID 30 Days Lasix (Furosemide) 40 Mg Tablet 40 Mg PO BID Clonazepam 1 Mg Tablet 0.5 Mg PO PRN Q6HRS PRN Risperdal (Risperidone) 4 Mg Tablet 5 Mg PO BID Prozac (Fluoxetine Hcl) 40 Mg Capsule 1 Cap PO DAILY Allergies Allergies: Coded Allergies: Cephalexin Monohydrate (Verified Allergy, Intermediate, 03/18/20) NSAIDS (Non-Steroidal Anti-Inflamma (Verified Allergy, Intermediate, 03/18/20) TORADOL [place] Penicillins (Verified Allergy, Intermediate, 03/18/20) iodine (Verified Allergy, Intermediate, 03/18/20) lidocaine (Verified Allergy, Intermediate, 03/18/20) prochlorperazine edisylate (Verified Allergy, Intermediate, 03/18/20) prochlorperazine maleate (Verified Allergy, Intermediate, 03/18/20) sulfamethoxazole (Verified Allergy, Intermediate, 03/18/20) trimethoprim (Verified Allergy, Intermediate, 03/18/20) ROS General: YES: Fatigue, Malaise, Appetite; No: Chills, Night Sweats, Other PSYCHOLOGICAL ROS: YES: Anxiety; No: Behavioral Disorder, Concentration difficultie, Decreased libido, Depress ion, Disorientation, Hallucinations, Hostility, Irritablity, Memory difficulties, Mood Swings, Obsessive thoughts, Physical abuse, Sexual abuse, Sleep disturbances, Suicidal ideation, Other Eyes: No Blurry vision, No Decreased vision, No Double vision, No Dry eyes, No Excessive tearing, No Eye Pain, No Itchy Eyes, No Loss of vision, No Photophobia, No Scotomata, No Uses contacts, No Uses glasses, No Other HEENT: No: Heacaches, Visual Changes, Hearing change, Nasal congestion, Nasal discharge, Oral lesions, Sinus pain, Sore Throat, Epistaxis, Sneezing, Snoring, Tinnitus, Vertigo, Vocal changes, Other ALLERGY AND IMMUNOLOGY: No: Hives, Insect Bite Sensitivity, Itchy/Watery Eyes, Nasal Congestion, Post Nasal Drip, Seasonal Allergies, Other Hematological and Lymphatic: YES: Blood Clots; No: Bleeding Problems, Blood Transfusions, Brusing, Night Sweats, Pallor, Swollen Lymph Nodes, Other ENDOCRINE: No: Breast Changes, Galactorrhea, Hair Pattern Changes, Hot Flashes, Malaise/lethargy, Mood Swings, Palpitations, Polydipsia/polyuria, Skin Changes, Temperature Intolerance, Unexpected Weight Changes, Other Breast: No New/Changing Breast Lumps, No Nipple changes, No Nipple discharge, No Other Respiratory: No: Cough, Hemoptysis, Orthopnea, Pleuritic Pain, Shortness of breath, SOB with excertion, Sputum Changes, Stridor, Tachypnea, Wheezing, Other Cardiovascular: No Chest Pain, No Palpitations, No Orthopnea, No Paroxysmal Noc. Dyspnea, No Edema, No Lt Headedness, No Other Gastrointestinal: Yes Nausea, Yes Vomiting, Yes Abdominal Pain; No Diarrhea, No Constipation, No Melena, No Hematochezia, No Other Genitourinary: No Dysuria, No Frequency, No Incontinence, No Hematuria, No Retention, No Discharge, No Urgency, No Pain, No Flank Pain, No Other, No , No , No , No , No , No , No Musculoskeletal: No Gait Disturbance, No Joint Pain, No Joint Stiffness, No Joint Swelling, No Muscle Pain, No Muscular Weakness, No Pain In:, No Swelling In:, No Other Neurological: No Behavorial Changes, No Bowel/Bladder ControlChng, No Confusion, No Dizziness, No Gait Disturbance, No Headaches, No Impaired Coord/balance, No Memory Loss, No Numbness/Tingling, No Seizures, No Speech Problems, No Tremors, No Visual Changes, No Weakness, No Other Skin: No Dry Skin, No Eczema, No Hair Changes, No Lumps, No Mole Changes, No Mottling, No Nail Changes, No Pruritus, No Rash, No Skin Lesion Changes, No Other, No Acne Physical Exam General: Alert, Oriented X3, Cooperative, No acute distress HEENT: Atraumatic, PERRLA, EOMI, Mucous membr. moist/pink, Other (Adentulous) Lungs: Clear to auscultation, Normal air movement Heart: S1S2, RRR, no thrills, no rubs, no gallops, no murmurs Abdomen: Normal bowel sounds, Soft, No hepatosplenomegaly, No masses, Other (mild pain, RUQ drain, clean, dry. Wound dressing dry, some drainage along wound bed.) Extremities: No clubbing, No cyanosis, No edema, Normal pulses, No tenderness/swelling Skin: No rashes, No significant lesion Neuro: Normal gait, Normal speech, Strength at 5/5 X4 ext, Normal tone, Sensation intact, Cranial nerves 3-12 NL, Reflexes 2+ Psych/Mental Status: Mental status NL, Mood NL Vitals Vitals Vital Signs Date Time Temp Pulse Resp B/P (MAP) Pulse Ox O2 Delivery O2 Flow Rate FiO2 04/04/20 07:39 Room Air 04/04/20 04:37 91 04/04/20 03:00 98.6 99 18 117/74 (88) 98.6 Labs Labs Laboratory Tests Test 04/03/20 13:30 04/03/20 13:38 04/03/20 15:45 Urine Collection Type Unknown Urine Color Yellow Urine Clarity Clear Urine pH 6.0 (<5.0-8.0) Urine Specific [place] 1.020 (1.000-1.030) Urine Protein Negative mg/dL (NEG-TRACE) Urine Glucose (UA) Negative mg/dL (NEG) Urine Ketones (Stick) Negative mg/dL (NEG) Urine Blood Negative (NEG) Urine Nitrite Negative (NEG) Urine Bilirubin Negative (NEG) Urine Urobilinogen Dipstick 0.2 mg/dL (0.2 mg/dL) Urine Leukocyte Esterase Negative (NEG) Urine RBC 0 /HPF (0-2) Urine WBC 5-10 /HPF (0-4) Urine Squamous Epithelial Cells Many /LPF Urine Bacteria 0 /HPF (0-FEW) Urine Mucus Mod /LPF Urine Opiates Screen Pos (NEG) Urine Methadone Screen Neg (NEG) Urine Barbiturates Neg (NEG) Urine Phencyclidine Screen Neg (NEG) Urine Amphetamine/Methamphetamine Neg (NEG) Urine Benzodiazepines Screen Neg (NEG) Urine Cocaine Screen Neg (NEG) Urine Cannabinoids Screen Neg (NEG) Urine Ethyl Alcohol Neg (NEG) Bedside Urine HCG, Qualitative Hcg negative (Negative) White Blood Count 11.6 x10^3/uL (4.0-11.0) Red Blood Count 3.36 x10^6/uL (3.50-5.40) Hemoglobin 10.3 g/dL (12.0-15.5) Hematocrit 30.4 % (36.0-47.0) Mean Corpuscular Volume 90 fL (79-100) Mean Corpuscular Hemoglobin 31 pg (25-35) Mean Corpuscular Hemoglobin Concent 34 g/dL (31-37) Red Cell Distribution Width 13.9 % (11.5-14.5) Platelet Count 868 x10^3/uL (140-400) Neutrophils (%) (Auto) 64 % (31-73) Lymphocytes (%) (Auto) 19 % (24-48) Monocytes (%) (Auto) 10 % (0-9) Eosinophils (%) (Auto) 5 % (0-3) Basophils (%) (Auto) 1 % (0-3) Neutrophils # (Auto) 7.4 x10^3/uL (1.8-7.7) Lymphocytes # (Auto) 2.2 x10^3/uL (1.0-4.8) Monocytes # (Auto) 1.2 x10^3/uL (0.0-1.1) Eosinophils # (Auto) 0.6 x10^3/uL (0.0-0.7) Basophils # (Auto) 0.1 x10^3/uL (0.0-0.2) Prothrombin Time 14.6 SEC (11.7-14.0) Prothromb Time International Ratio 1.2 (0.8-1.1) Sodium Level 136 mmol/L (136-145) Potassium Level 4.2 mmol/L (3.5-5.1) Chloride Level 100 mmol/L (98-107) Carbon Dioxide Level 27 mmol/L (21-32) Anion Gap 9 (6-14) Blood Urea Nitrogen 9 mg/dL (7-20) Creatinine 1.0 mg/dL (0.6-1.0) Estimated GFR (Cockcroft-Gault) 60.2 BUN/Creatinine Ratio 9 (6-20) Glucose Level 89 mg/dL (70-99) Calcium Level 8.6 mg/dL (8.5-10.1) Total Bilirubin 0.2 mg/dL (0.2-1.0) Aspartate Amino Transf (AST/SGOT) 10 U/L (15-37) Alanine Aminotransferase (ALT/SGPT) 10 U/L (14-59) Alkaline Phosphatase 142 U/L (46-116) Troponin I Quantitative < 0.017 ng/mL (0.000-0.055) Total Protein 6.8 g/dL (6.4-8.2) Albumin 2.6 g/dL (3.4-5.0) Albumin/Globulin Ratio 0.6 (1.0-1.7) Lipase 52 U/L (73-393) Laboratory Tests Test 04/03/20 13:30 04/03/20 13:38 04/03/20 15:45 Urine Collection Type Unknown Urine Color Yellow Urine Clarity Clear Urine pH 6.0 (<5.0-8.0) Urine Specific [place] 1.020 (1.000-1.030) Urine Protein Negative mg/dL (NEG-TRACE) Urine Glucose (UA) Negative mg/dL (NEG) Urine Ketones (Stick) Negative mg/dL (NEG) Urine Blood Negative (NEG) Urine Nitrite Negative (NEG) Urine Bilirubin Negative (NEG) Urine Urobilinogen Dipstick 0.2 mg/dL (0.2 mg/dL) Urine Leukocyte Esterase Negative (NEG) Urine RBC 0 /HPF (0-2) Urine WBC 5-10 /HPF (0-4) Urine Squamous Epithelial Cells Many /LPF Urine Bacteria 0 /HPF (0-FEW) Urine Mucus Mod /LPF Urine Opiates Screen Pos (NEG) Urine Methadone Screen Neg (NEG) Urine Barbiturates Neg (NEG) Urine Phencyclidine Screen Neg (NEG) Urine Amphetamine/Methamphetamine Neg (NEG) Urine Benzodiazepines Screen Neg (NEG) Urine Cocaine Screen Neg (NEG) Urine Cannabinoids Screen Neg (NEG) Urine Ethyl Alcohol Neg (NEG) Bedside Urine HCG, Qualitative Hcg negative (Negative) White Blood Count 11.6 x10^3/uL (4.0-11.0) Red Blood Count 3.36 x10^6/uL (3.50-5.40) Hemoglobin 10.3 g/dL (12.0-15.5) Hematocrit 30.4 % (36.0-47.0) Mean Corpuscular Volume 90 fL (79-100) Mean Corpuscular Hemoglobin 31 pg (25-35) Mean Corpuscular Hemoglobin Concent 34 g/dL (31-37) Red Cell Distribution Width 13.9 % (11.5-14.5) Platelet Count 868 x10^3/uL (140-400) Neutrophils (%) (Auto) 64 % (31-73) Lymphocytes (%) (Auto) 19 % (24-48) Monocytes (%) (Auto) 10 % (0-9) Eosinophils (%) (Auto) 5 % (0-3) Basophils (%) (Auto) 1 % (0-3) Neutrophils # (Auto) 7.4 x10^3/uL (1.8-7.7) Lymphocytes # (Auto) 2.2 x10^3/uL (1.0-4.8) Monocytes # (Auto) 1.2 x10^3/uL (0.0-1.1) Eosinophils # (Auto) 0.6 x10^3/uL (0.0-0.7) Basophils # (Auto) 0.1 x10^3/uL (0.0-0.2) Prothrombin Time 14.6 SEC (11.7-14.0) Prothromb Time International Ratio 1.2 (0.8-1.1) Sodium Level 136 mmol/L (136-145) Potassium Level 4.2 mmol/L (3.5-5.1) Chloride Level 100 mmol/L (98-107) Carbon Dioxide Level 27 mmol/L (21-32) Anion Gap 9 (6-14) Blood Urea Nitrogen 9 mg/dL (7-20) Creatinine 1.0 mg/dL (0.6-1.0) Estimated GFR (Cockcroft-Gault) 60.2 BUN/Creatinine Ratio 9 (6-20) Glucose Level 89 mg/dL (70-99) Calcium Level 8.6 mg/dL (8.5-10.1) Total Bilirubin 0.2 mg/dL (0.2-1.0) Aspartate Amino Transf (AST/SGOT) 10 U/L (15-37) Alanine Aminotransferase (ALT/SGPT) 10 U/L (14-59) Alkaline Phosphatase 142 U/L (46-116) Troponin I Quantitative < 0.017 ng/mL (0.000-0.055) Total Protein 6.8 g/dL (6.4-8.2) Albumin 2.6 g/dL (3.4-5.0) Albumin/Globulin Ratio 0.6 (1.0-1.7) Lipase 52 U/L (73-393) Images Images CT abdomen/pelvis - Evaluation of the lower thorax demonstrate interval decrease in a now trace right pleural effusion and decrease in medial right middle lobe and bilateral lower lobe atelectasis or interstitial infiltrate. There is mild hepatomegaly. No focal hepatic lesion is seen on this noncontrast exam. The gallbladder is surgically absent. The pancreas, spleen and adrenal glands are unremarkable. There is a pigtail drainage catheter entering the right ventral peritoneal cavity and looped along the anterior distal gastric antrum and inferior to the gallbladder fossa. The previously demonstrated fluid collection containing gas is no longer seen in this location. There is mesenteric stranding in this location. No persistent drainable collection is seen. There is wall thickening involving the distal gastric antrum, stable in appearance. There are small nonobstructing renal stones, the largest of which measure 2 mm on the left. There is no evidence of hydronephrosis. The urinary bladder is nearly empty. The uterus is surgically absent. The adnexal regions are unremarkable. There is no evidence of bowel obstruction. There is a trace amount of fluid and stranding along a ventral abdominal wall incision due to a recent post operative hematoma/seroma. No drainable fluid correction is seen within the ventral abdominal wall. The aorta is normal in caliber. There is an inferior vena cava in expected position. There are nonspecific lymph nodes throughout the root of the mesentery and retroperitoneum. There is no suspicious osseous lesion. IMPRESSION: 1. Interval placement of a pigtail catheter within the right upper abdomen and resolution of the previously demonstrated gas-containing fluid collection along the anterior wall of the distal gastric antrum. No persistent drainable collection is seen in this location. 2. Irregular wall thickening involving the distal gastric antrum. This may be due to recent surgery, reactive changes due to ulceration or an underlying mass. This can be better assessed with endoscopy. 3. Decrease in a trace right pleural effusion and right middle lobe and bilateral lower lobe atelectasis or infiltrate. 4. Nephrolithiasis. 5. Findings consistent with a recent laparotomy. VTE Prophylaxis Ordered VTE Prophylaxis Devices: Yes VTE Pharmacological Prophylaxi: Yes Assessment/Plan Assessment/Plan A/P: Nausea and vomiting - IV antiemetics, she is asking for PO already Abdominal pain - Perforated gastric ulcer status post repair of perforated ulcer with gopal patch now with recurrent pain. Will cont antibiotics and pain control. Has h/o drug seeking behavior documented, will minimize IV pain medications, change to hydrocodone Leukocytosis - mild, will trend Diffuse peritonitis - improved from prior Exploratory laparotomy on 03/15/2020, repair of perforated ulcer with Gopal patch. Antibiotic allergies, all cause swelling and trouble breathing. Transaminitis. History of lupus. Right basilar airspace disease, atelectasis versus pneumonia. There is a mod erate size pleural effusion which is improving Normocytic Anemia with Hb 10.3 on admission Multiple abx allergies: PCN/Keflex/Bactrim - swelling and trouble breathing Bilateral nephrolithiasis, nonobstructive Schizophrenia/bipolar disorder Anxiety/depression History of Lupus History of CHF history of COPD Prior Smoker FEN - npo, ADAT PPX - lovenox FULL CODE Dispo - inpatient for above JONEL GOVEA MD April 04, 2020 08:01
[2020-04-04] MEDS: ONDANSETRON PF 4 MG/2 ML VIAL. IV PRN ×2 (08:34→17:47)
--- NOTE | 2020-04-04 10:21 | PDOC2 ---
CONSULT Date of Consult Date of Consult DATE: 04/04/20 TIME: 10:15 Reason for Consult Reason for Consult: abdominal pain, nausea Referring Physician Referring Physician: OFE Identification/Chief Complaint Chief Complaint abdominal pain, nausea Source Source: Chart review, Patient History of Present Illness Reason for Visit: Ms Goncalves is a 44 yo obese female known to our service after presenting with a perforated ulcer. She returned with an air/fluid collection around the stomach that was drained by IR. She did well and went home but now returns with c/o pain and nausea. Past Medical History Cardiovascular: No pertinent hx Pulmonary: COPD, Pulmonary embolus GI: GERD, Gastritis, Peptic Ulcer disease, Other Heme/Onc: No pertinent hx Hepatobiliary: No pertinent hx Psych: No pertinent hx Musculoskeletal: low back pain Rheumatologic: Other Endocrine: No pertinent hx Past Surgical History Past Surgical History: Appendectomy, Cholecystectomy, , Hysterectomy, Other (closure perforated ulcer) Family History Family History: Alzheimer's Disease Social History ALCOHOL: rare Drugs: None Current Problem List Problem List Problems Medical Problems: (1) Uncontrolled pain Status: Acute Current Medications Current Medications Current Medications Sodium Chloride 1,000 ml @ 1,000 mls/hr Q1H IV Last administered on 04/03/20at 14:26; Start 04/03/20 at 14:26; Stop 04/03/20 at 15:25; Status DC Morphine Sulfate (Morphine Sulfate) 4 mg 1X ONCE IV Last administered on 04/03/20at 15:58; Start 04/03/20 at 15:15; Stop 04/03/20 at 15:16; Status DC Ondansetron HCl (Zofran) 4 mg 1X ONCE IVP Last administered on 04/03/20at 15:57; Start 04/03/20 at 15:15; Stop 04/03/20 at 15:16; Status DC Fentanyl Citrate (Fentanyl 2ml Vial) 50 mcg 1X ONCE IVP Last administered on 04/03/20at 17:33; Start 04/03/20 at 17:30; Stop 04/03/20 at 17:31; Status DC Fentanyl Citrate (Fentanyl 2ml Vial) 50 mcg 1X ONCE IVP ; Start 04/03/20 at 18:30; Stop 04/03/20 at 18:31; Status DC Ondansetron HCl (Zofran) 4 mg PRN Q8HRS PRN IV NAUSEA/VOMITING Last administered on 04/03/20at 20:19; Start 04/03/20 at 19:00; Stop 04/04/20 at 07:48; Status DC Fentanyl Citrate (Fentanyl 2ml Vial) 50 mcg PRN Q1HR PRN IV PAIN Last administered on 04/03/20at 20:39; Start 04/03/20 at 19:00; Stop 04/04/20 at 10:00; Status DC Sodium Chloride 1,000 ml @ 100 mls/hr Q10H IV Last administered on 04/03/20at 20:41; Start 04/03/20 at 18:46; Stop 04/04/20 at 18:45 Morphine Sulfate (Morphine Sulfate) 2 mg PRN Q2HR PRN IV MODERATE PAIN 4-6 Last administered on 04/03/20at 22:17; Start 04/03/20 at 21:30 Morphine Sulfate (Morphine Sulfate) 4 mg PRN Q2HR PRN IV SEVERE PAIN 7-10 Last administered on 04/04/20at 09:38; Start 04/03/20 at 21:30; Stop 04/04/20 at 09:59; Status DC Ondansetron HCl (Zofran) 4 mg PRN Q4HRS PRN IV NAUSEA/VOMITING Last administered on 04/04/20at 08:34; Start 04/04/20 at 07:45 Acetaminophen (Tylenol) 650 mg PRN Q4HRS PRN PO TEMP OVER 100.4F OR MILD PAIN; Start 04/04/20 at 07:45 Docusate Sodium (Colace) 100 mg PRN BID PRN PO HARD STOOLS; Start 04/04/20 at 07:45 Famotidine (Pepcid) 20 mg BID PO ; Start 04/04/20 at 09:00 Furosemide (Lasix) 40 mg BID92 PO ; Start 04/04/20 at 09:00 Lactobacillus Rhamnosus (Culturelle) 1 cap BID PO ; Start 04/04/20 at 09:00 Levetiracetam (Keppra) 500 mg BID PO ; Start 04/04/20 at 09:00 Ondansetron HCl (Zofran Odt) 4 mg PRN Q8HRS PRN PO nausea and vomiting; Start 04/04/20 at 07:45 Oxycodone/ Acetaminophen (Percocet 5/325) 1 tab PRN Q4HRS PRN PO MODERATE TO SEVERE PAIN; Start 04/04/20 at 07:45 Sucralfate (Carafate) 1 gm QIDACHS PO ; Start 04/04/20 at 08:00 Fluoxetine HCl (PROzac) 40 mg DAILY PO ; Start 04/04/20 at 09:00 Doxycycline Hyclate (Vibra-Tab) 100 mg BID PO ; Start 04/04/20 at 09:00 Risperidone (RisperDAL) 5 mg BID PO ; Start 04/04/20 at 09:00 Levofloxacin (Levaquin) 500 mg DAILY06 PO ; Start 04/04/20 at 09:00 Metronidazole (Flagyl) 500 mg Q6HRS PO ; Start 04/04/20 at 08:00 Clonazepam (KlonoPIN) 0.5 mg PRN Q6HRS PRN PO ANXIETY / AGITATION; Start 04/04/20 at 08:15 Active Scripts Active Doxycycline Monohydrate 100 Mg Capsule 1 Cap PO BID 7 Days Culturelle (Lactobacillus Rhamnosus Gg) 1 Each Cap.sprink 1 Cap PO BID 30 Days Dok (Docusate Sodium) 100 Mg Capsule 100 Mg PO PRN BID PRN 30 Days Tylenol (Acetaminophen) 325 Mg Tablet 650 Mg PO PRN Q4HRS PRN 30 Days Pepcid (Famotidine) 20 Mg Tablet 20 Mg PO BID Zofran Odt (Ondansetron) 4 Mg Tab.rapdis 1 Tab SL Q8HRS PRN Reported Percocet 5-325 mg Tablet (Oxycodone HCl/Acetaminophen) 1 Each Tablet 1 Each PO PRN Q4HRS PRN Flagyl (Metronidazole) 500 Mg Tablet 1 Tab PO Q6HRS Levaquin (Levofloxacin) 500 Mg Tablet 1 Tab PO DAILY 7 Days Keppra (Levetiracetam) 500 Mg Tablet 500 Mg PO BID Carafate (Sucralfate) 1 Gm Tablet 1 Tab PO QID 30 Days Lasix (Furosemide) 40 Mg Tablet 40 Mg PO BID Clonazepam 1 Mg Tablet 0.5 Mg PO PRN Q6HRS PRN Risperdal (Risperidone) 4 Mg Tablet 5 Mg PO BID Prozac (Fluoxetine Hcl) 40 Mg Capsule 1 Cap PO DAILY Allergies Allergies: Coded Allergies: Cephalexin Monohydrate (Verified Allergy, Intermediate, 03/18/20) NSAIDS (Non-Steroidal Anti-Inflamma (Verified Allergy, Intermediate, 03/18/20) TORADOL [place] Penicillins (Verified Allergy, Intermediate, 03/18/20) iodine (Verified Allergy, Intermediate, 03/18/20) lidocaine (Verified Allergy, Intermediate, 03/18/20) prochlorperazine edisylate (Verified Allergy, Intermediate, 03/18/20) prochlorperazine maleate (Verified Allergy, Intermediate, 03/18/20) sulfamethoxazole (Verified Allergy, Intermediate, 03/18/20) trimethoprim (Verified Allergy, Intermediate, 03/18/20) ROS Review of System negative with exception of present complaints Physical Exam General: Alert, No acute distress HEENT: Atraumatic Lungs: Normal air movement Heart: Regular rate Abdomen: Soft, Other (perc drain in place with very small amount of purulent drainage) Vitals VITALS Vital Signs Date Time Temp Pulse Resp B/P (MAP) Pulse Ox O2 Delivery O2 Flow Rate FiO2 04/04/20 09:38 Room Air 04/04/20 07:00 98.2 98 16 104/22 (49) 91 98.2 Labs Labs Laboratory Tests Test 04/03/20 13:30 04/03/20 13:38 04/03/20 15:45 Urine Collection Type Unknown Urine Color Yellow Urine Clarity Clear Urine pH 6.0 (<5.0-8.0) Urine Specific [place] 1.020 (1.000-1.030) Urine Protein Negative mg/dL (NEG-TRACE) Urine Glucose (UA) Negative mg/dL (NEG) Urine Ketones (Stick) Negative mg/dL (NEG) Urine Blood Negative (NEG) Urine Nitrite Negative (NEG) Urine Bilirubin Negative (NEG) Urine Urobilinogen Dipstick 0.2 mg/dL (0.2 mg/dL) Urine Leukocyte Esterase Negative (NEG) Urine RBC 0 /HPF (0-2) Urine WBC 5-10 /HPF (0-4) Urine Squamous Epithelial Cells Many /LPF Urine Bacteria 0 /HPF (0-FEW) Urine Mucus Mod /LPF Urine Opiates Screen Pos (NEG) Urine Methadone Screen Neg (NEG) Urine Barbiturates Neg (NEG) Urine Phencyclidine Screen Neg (NEG) Urine Amphetamine/Methamphetamine Neg (NEG) Urine Benzodiazepines Screen Neg (NEG) Urine Cocaine Screen Neg (NEG) Urine Cannabinoids Screen Neg (NEG) Urine Ethyl Alcohol Neg (NEG) Bedside Urine HCG, Qualitative Hcg negative (Negative) White Blood Count 11.6 x10^3/uL (4.0-11.0) Red Blood Count 3.36 x10^6/uL (3.50-5.40) Hemoglobin 10.3 g/dL (12.0-15.5) Hematocrit 30.4 % (36.0-47.0) Mean Corpuscular Volume 90 fL (79-100) Mean Corpuscular Hemoglobin 31 pg (25-35) Mean Corpuscular Hemoglobin Concent 34 g/dL (31-37) Red Cell Distribution Width 13.9 % (11.5-14.5) Platelet Count 868 x10^3/uL (140-400) Neutrophils (%) (Auto) 64 % (31-73) Lymphocytes (%) (Auto) 19 % (24-48) Monocytes (%) (Auto) 10 % (0-9) Eosinophils (%) (Auto) 5 % (0-3) Basophils (%) (Auto) 1 % (0-3) Neutrophils # (Auto) 7.4 x10^3/uL (1.8-7.7) Lymphocytes # (Auto) 2.2 x10^3/uL (1.0-4.8) Monocytes # (Auto) 1.2 x10^3/uL (0.0-1.1) Eosinophils # (Auto) 0.6 x10^3/uL (0.0-0.7) Basophils # (Auto) 0.1 x10^3/uL (0.0-0.2) Prothrombin Time 14.6 SEC (11.7-14.0) Prothromb Time International Ratio 1.2 (0.8-1.1) Sodium Level 136 mmol/L (136-145) Potassium Level 4.2 mmol/L (3.5-5.1) Chloride Level 100 mmol/L (98-107) Carbon Dioxide Level 27 mmol/L (21-32) Anion Gap 9 (6-14) Blood Urea Nitrogen 9 mg/dL (7-20) Creatinine 1.0 mg/dL (0.6-1.0) Estimated GFR (Cockcroft-Gault) 60.2 BUN/Creatinine Ratio 9 (6-20) Glucose Level 89 mg/dL (70-99) Calcium Level 8.6 mg/dL (8.5-10.1) Total Bilirubin 0.2 mg/dL (0.2-1.0) Aspartate Amino Transf (AST/SGOT) 10 U/L (15-37) Alanine Aminotransferase (ALT/SGPT) 10 U/L (14-59) Alkaline Phosphatase 142 U/L (46-116) Troponin I Quantitative < 0.017 ng/mL (0.000-0.055) Total Protein 6.8 g/dL (6.4-8.2) Albumin 2.6 g/dL (3.4-5.0) Albumin/Globulin Ratio 0.6 (1.0-1.7) Lipase 52 U/L (73-393) Laboratory Tests Test 04/03/20 13:30 04/03/20 13:38 04/03/20 15:45 Urine Collection Type Unknown Urine Color Yellow Urine Clarity Clear Urine pH 6.0 (<5.0-8.0) Urine Specific [place] 1.020 (1.000-1.030) Urine Protein Negative mg/dL (NEG-TRACE) Urine Glucose (UA) Negative mg/dL (NEG) Urine Ketones (Stick) Negative mg/dL (NEG) Urine Blood Negative (NEG) Urine Nitrite Negative (NEG) Urine Bilirubin Negative (NEG) Urine Urobilinogen Dipstick 0.2 mg/dL (0.2 mg/dL) Urine Leukocyte Esterase Negative (NEG) Urine RBC 0 /HPF (0-2) Urine WBC 5-10 /HPF (0-4) Urine Squamous Epithelial Cells Many /LPF Urine Bacteria 0 /HPF (0-FEW) Urine Mucus Mod /LPF Urine Opiates Screen Pos (NEG) Urine Methadone Screen Neg (NEG) Urine Barbiturates Neg (NEG) Urine Phencyclidine Screen Neg (NEG) Urine Amphetamine/Methamphetamine Neg (NEG) Urine Benzodiazepines Screen Neg (NEG) Urine Cocaine Screen Neg (NEG) Urine Cannabinoids Screen Neg (NEG) Urine Ethyl Alcohol Neg (NEG) Bedside Urine HCG, Qualitative Hcg negative (Negative) White Blood Count 11.6 x10^3/uL (4.0-11.0) Red Blood Count 3.36 x10^6/uL (3.50-5.40) Hemoglobin 10.3 g/dL (12.0-15.5) Hematocrit 30.4 % (36.0-47.0) Mean Corpuscular Volume 90 fL (79-100) Mean Corpuscular Hemoglobin 31 pg (25-35) Mean Corpuscular Hemoglobin Concent 34 g/dL (31-37) Red Cell Distribution Width 13.9 % (11.5-14.5) Platelet Count 868 x10^3/uL (140-400) Neutrophils (%) (Auto) 64 % (31-73) Lymphocytes (%) (Auto) 19 % (24-48) Monocytes (%) (Auto) 10 % (0-9) Eosinophils (%) (Auto) 5 % (0-3) Basophils (%) (Auto) 1 % (0-3) Neutrophils # (Auto) 7.4 x10^3/uL (1.8-7.7) Lymphocytes # (Auto) 2.2 x10^3/uL (1.0-4.8) Monocytes # (Auto) 1.2 x10^3/uL (0.0-1.1) Eosinophils # (Auto) 0.6 x10^3/uL (0.0-0.7) Basophils # (Auto) 0.1 x10^3/uL (0.0-0.2) Prothrombin Time 14.6 SEC (11.7-14.0) Prothromb Time International Ratio 1.2 (0.8-1.1) Sodium Level 136 mmol/L (136-145) Potassium Level 4.2 mmol/L (3.5-5.1) Chloride Level 100 mmol/L (98-107) Carbon Dioxide Level 27 mmol/L (21-32) Anion Gap 9 (6-14) Blood Urea Nitrogen 9 mg/dL (7-20) Creatinine 1.0 mg/dL (0.6-1.0) Estimated GFR (Cockcroft-Gault) 60.2 BUN/Creatinine Ratio 9 (6-20) Glucose Level 89 mg/dL (70-99) Calcium Level 8.6 mg/dL (8.5-10.1) Total Bilirubin 0.2 mg/dL (0.2-1.0) Aspartate Amino Transf (AST/SGOT) 10 U/L (15-37) Alanine Aminotransferase (ALT/SGPT) 10 U/L (14-59) Alkaline Phosphatase 142 U/L (46-116) Troponin I Quantitative < 0.017 ng/mL (0.000-0.055) Total Protein 6.8 g/dL (6.4-8.2) Albumin 2.6 g/dL (3.4-5.0) Albumin/Globulin Ratio 0.6 (1.0-1.7) Lipase 52 U/L (73-393) Images Images CT done on admission is reviewed Assessment/Plan Assessment/Plan abdominal pain s/p closure perforated ulcer, IR drainage fluid collection now with normal CT but c/o pain no new surgical risks will d/w Dr Landers Thanks for consult MORELIA PETTIT MD April 04, 2020 10:21
[2020-04-04] MEDS: DOXYCYCLINE HYCLATE 100 MG TABLET PO SCH ×2 (10:44→21:25)
[2020-04-04] MEDS: SUCRALFATE 1 GM TABLET. PO SCH ×4 (10:44→21:24)
[2020-04-04] MEDS: FLUoxetine HCL 20 MG CAPSULE PO SCH (10:45)
[2020-04-04] MEDS: levETIRAcetam 500 MG TABLET PO SCH ×2 (10:45→21:25)
[2020-04-04] MEDS: LACTOBACILLUS RHAMNOSUS GG 1 CAPSULE. PO SCH ×2 (10:45→21:24)
[2020-04-04] MEDS: FAMOTIDINE 20 MG TABLET. PO SCH ×2 (10:45→21:24)
[2020-04-04] MEDS: risperiDONE 1 MG TABLET. PO SCH ×2 (10:45→21:24)
[2020-04-04] MEDS: FUROSEMIDE 40 MG TABLET. PO SCH ×2 (10:46→12:22)
[2020-04-04] MEDS: IV NORMAL SALINE 1000ML BAG 1,000 ML IV SCH ×2 (10:48→17:48)
[2020-04-04] MEDS: metroNIDAZOLE 500 MG TABLET PO SCH ×4 (10:50→23:39)
[2020-04-04] MEDS: MORPHINE SULFATE 2 MG/ML VIAL. IV PRN ×4 (11:41→23:47)
--- NOTE | 2020-04-04 12:24 | NUR ---
Non admin 1300 flagyl and 1400 furosemide 0800 doses administered @ 1100 d/t pt being NPO.
[2020-04-04] MEDS: HYDROcodone/APAP 5/325MG 1 TAB TABLET PO PRN ×2 (12:36→18:45)
--- NOTE | 2020-04-04 14:45 | NUR ---
wound care patient seen per wound care consult. see wound assessment. patient has a midline abdomen dehisced surgical incision,the incision was cleaned, and the wound has some creamy yellow drainage from the distal part of the incision with what looks to be like visualized sutures, recommendations of Aquagel Ag with an abd pad with tape, change every 2-3days. wound care will continue to f/u for changes.
--- NOTE | 2020-04-04 15:03 | NUR ---
SS following for discharge planning. SS reviewed pt chart and discussed with pt RN. Pt is from home with spouse and is currently on room air. Pt is self pay pt. SS will continue to follow for discharge planning.
[2020-04-04] MEDS: clonazePAM 0.5 MG TABLET PO PRN (22:15)
[2020-04-05] MEDS: HYDROcodone/APAP 5/325MG 1 TAB TABLET PO PRN ×2 (02:31→08:31)
[2020-04-05 03:31] VITALS: BP 102/73
[2020-04-05] MEDS: MORPHINE SULFATE 2 MG/ML VIAL. IV PRN ×2 (05:30→09:45)
[2020-04-05] MEDS: metroNIDAZOLE 500 MG TABLET PO SCH ×2 (05:30→11:51)
[2020-04-05] MEDS: clonazePAM 0.5 MG TABLET PO PRN (06:34)
[2020-04-05 07:00] VITALS: BP 128/73
--- NOTE | 2020-04-05 08:02 | PDOC ---
PROGRESS NOTES Chief Complaint Chief Complaint A/P: Nausea and vomiting - IV antiemetics, she is asking for PO already Abdominal pain - Perforated gastric ulcer status post repair of perforated ulcer with gpoal patch now with recurrent pain. Will cont antibiotics and pain control. Has h/o drug seeking behavior documented, will minimize IV pain medications, change to hydrocodone Leukocytosis - mild, will trend Diffuse peritonitis - improved from prior Exploratory laparotomy on 03/15/2020, repair of perforated ulcer with Gopal patch. Antibiotic allergies, all cause swelling and trouble breathing. Transaminitis. History of lupus. Right basilar airspace disease, atelectasis versus pneumonia. There is a moderate size pleural effusion which is improving Normocytic Anemia with Hb 10.3 on admission Multiple abx allergies: PCN/Keflex/Bactrim - swelling and trouble breathing Bilateral nephrolithiasis, nonobstructive Schizophrenia/bipolar disorder Anxiety/depression History of Lupus History of CHF history of COPD Prior Smoker FEN - npo, ADAT PPX - lovenox FULL CODE Dispo - inpatient for above History of Present Illness History of Present Illness Ms Goncalves is a 44yo F w/ PMHx COPD, DVT s/p IVC filter, hypercholesterolemia, hypertension, kidney stones, myocardial infarction, peptic ulcer disease (perforated s/p gopal patch), seizures, anxiety/depression, BP disorder, questionable history of lupus and morbid obesity who comes to the ED on 04/03/2020 after vomiting after eating a tilapia filet and notes worsening abdominal pain. She has requested hydrocodone by name, notes she doesn't think oxycodone works for her. She was discharged on 03/21, returned to the hospital due to abdominal pain and small separation of her incision on March 24- and CT of her abdomen pelvis done with abnormal findings and on 03/27 CT-guided drain placement was placed by IR. This drain is currently draining purulent thick fluid, cultures negative for bacterial or fungal growth. She was on micafungin, levaquin and vancomycin and was discharged on flagyl, levaquin, and doxycycline for 7 days to complete on 04/07/2020. Abdominal incision looks to be healing but has drainage. There is no redness or cellulitis around the abdominal incision area. Patient changes her dressings daily. Patient rating her pain a 10 out of 10 and states she has nausea and vomiting. Patient states this pain feels like the pain that she had before she had her surgery. Has a mild appetite currently. No complications passing her urine. Denies any rashes. No gross shortness of breath. Of note, she has had over 20 ED visits in the last year for various pain complaints. CT abdomen/pelvis overall improved from prior, resolution of the previously demonstrated gas-containing fluid collection along the anterior wall of the distal gastric antrum. WBC 11.6, Hb 10.3, Platelets 868, Na 136, K 4.2, BUN 9, Cr 1, glucose 89, Alkaline phosphatase 142, INR 1.2, Albumin 2.6. Admitted for further care. Seen by IR, patient educated on flushing her drain. She is feeling better, walking the halls. She is asking to increase the frequency of pain medication and we had a long discussion about potential drug-seeking behavior given that she is not exhibiting other signs of pain. Advised that her ED visit frequency is an indication she needs to work more on coping mechanisms, she agrees. Will transition to no more than 2 hydrocodone 5mg for the next 6 days. Perctutaneous abscess, adjacent to stomach following perf gastric ulcer with gopal patch, Drain placed 03.27.20. Now minimal purulent appearing drainage, e stimate 10 cc daily. Pt has not been flushing drain or recording output at home. Would like to keep drain, with bid flushes until 5-10 cc serous output. Can return in 1 week for drain check and hopefully, pull. Vitals Vitals Vital Signs Date Time Temp Pulse Resp B/P (MAP) Pulse Ox O2 Delivery O2 Flow Rate FiO2 04/05/20 06:00 20 Room Air 04/05/20 03:31 100.0 99 102/73 (83) 91 100.0 Physical Exam General: Alert, Oriented X3, Cooperative, No acute distress Heart: Regular rate Lungs: Clear Abdomen: Normal bowel sounds, Soft, No hepatosplenomegaly, No masses, Other (mild pain, RUQ drain, clean, dry. Wound dressing dry, some drainage along wound bed.) Extremities: No clubbing, No cyanosis, No edema, Normal pulses, No tenderness/swelling Skin: No rashes, No significant lesion Assessment and Plan Assessmemt and Plan Problems Medical Problems: (1) Uncontrolled pain Status: Acute Comment Review of Relevant I have reviewed the following items sasha (where applicable) has been applied. Labs Laboratory Tests Test 04/03/20 13:30 04/03/20 13:38 04/03/20 15:45 Urine Collection Type Unknown Urine Color Yellow Urine Clarity Clear Urine pH 6.0 (<5.0-8.0) Urine Specific [place] 1.020 (1.000-1.030) Urine Protein Negative mg/dL (NEG-TRACE) Urine Glucose (UA) Negative mg/dL (NEG) Urine Ketones (Stick) Negative mg/dL (NEG) Urine Blood Negative (NEG) Urine Nitrite Negative (NEG) Urine Bilirubin Negative (NEG) Urine Urobilinogen Dipstick 0.2 mg/dL (0.2 mg/dL) Urine Leukocyte Esterase Negative (NEG) Urine RBC 0 /HPF (0-2) Urine WBC 5-10 /HPF (0-4) Urine Squamous Epithelial Cells Many /LPF Urine Bacteria 0 /HPF (0-FEW) Urine Mucus Mod /LPF Urine Opiates Screen Pos (NEG) Urine Methadone Screen Neg (NEG) Urine Barbiturates Neg (NEG) Urine Phencyclidine Screen Neg (NEG) Urine Amphetamine/Methamphetamine Neg (NEG) Urine Benzodiazepines Screen Neg (NEG) Urine Cocaine Screen Neg (NEG) Urine Cannabinoids Screen Neg (NEG) Urine Ethyl Alcohol Neg (NEG) Bedside Urine HCG, Qualitative Hcg negative (Negative) White Blood Count 11.6 x10^3/uL (4.0-11.0) Red Blood Count 3.36 x10^6/uL (3.50-5.40) Hemoglobin 10.3 g/dL (12.0-15.5) Hematocrit 30.4 % (36.0-47.0) Mean Corpuscular Volume 90 fL (79-100) Mean Corpuscular Hemoglobin 31 pg (25-35) Mean Corpuscular Hemoglobin Concent 34 g/dL (31-37) Red Cell Distribution Width 13.9 % (11.5-14.5) Platelet Count 868 x10^3/uL (140-400) Neutrophils (%) (Auto) 64 % (31-73) Lymphocytes (%) (Auto) 19 % (24-48) Monocytes (%) (Auto) 10 % (0-9) Eosinophils (%) (Auto) 5 % (0-3) Basophils (%) (Auto) 1 % (0-3) Neutrophils # (Auto) 7.4 x10^3/uL (1.8-7.7) Lymphocytes # (Auto) 2.2 x10^3/uL (1.0-4.8) Monocytes # (Auto) 1.2 x10^3/uL (0.0-1.1) Eosinophils # (Auto) 0.6 x10^3/uL (0.0-0.7) Basophils # (Auto) 0.1 x10^3/uL (0.0-0.2) Prothrombin Time 14.6 SEC (11.7-14.0) Prothromb Time International Ratio 1.2 (0.8-1.1) Sodium Level 136 mmol/L (136-145) Potassium Level 4.2 mmol/L (3.5-5.1) Chloride Level 100 mmol/L (98-107) Carbon Dioxide Level 27 mmol/L (21-32) Anion Gap 9 (6-14) Blood Urea Nitrogen 9 mg/dL (7-20) Creatinine 1.0 mg/dL (0.6-1.0) Estimated GFR (Cockcroft-Gault) 60.2 BUN/Creatinine Ratio 9 (6-20) Glucose Level 89 mg/dL (70-99) Calcium Level 8.6 mg/dL (8.5-10.1) Total Bilirubin 0.2 mg/dL (0.2-1.0) Aspartate Amino Transf (AST/SGOT) 10 U/L (15-37) Alanine Aminotransferase (ALT/SGPT) 10 U/L (14-59) Alkaline Phosphatase 142 U/L (46-116) Troponin I Quantitative < 0.017 ng/mL (0.000-0.055) Total Protein 6.8 g/dL (6.4-8.2) Albumin 2.6 g/dL (3.4-5.0) Albumin/Globulin Ratio 0.6 (1.0-1.7) Lipase 52 U/L (73-393) Medications Current Medications Sodium Chloride 1,000 ml @ 1,000 mls/hr Q1H IV Last administered on 04/03/20at 14:26; Start 04/03/20 at 14:26; Stop 04/03/20 at 15:25; Status DC Morphine Sulfate (Morphine Sulfate) 4 mg 1X ONCE IV Last administered on 04/03/20 15:58; Start 04/03/20 at 15:15; Stop 04/03/20 at 15:16; Status DC Ondansetron HCl (Zofran) 4 mg 1X ONCE IVP Last administered on 04/03/20at 15:57; Start 04/03/20 at 15:15; Stop 04/03/20 at 15:16; Status DC Fentanyl Citrate (Fentanyl 2ml Vial) 50 mcg 1X ONCE IVP Last administered on 04/03/20at 17:33; Start 04/03/20 at 17:30; Stop 04/03/20 at 17:31; Status DC Fentanyl Citrate (Fentanyl 2ml Vial) 50 mcg 1X ONCE IVP ; Start 04/03/20 at 18: 30; Stop 04/03/20 at 18:31; Status DC Ondansetron HCl (Zofran) 4 mg PRN Q8HRS PRN IV NAUSEA/VOMITING Last administered on 04/03/20at 20:19; Start 04/03/20 at 19:00; Stop 04/04/20 at 07:48; Status DC Fentanyl Citrate (Fentanyl 2ml Vial) 50 mcg PRN Q1HR PRN IV PAIN Last administered on 04/03/20at 20:39; Start 04/03/20 at 19:00; Stop 04/04/20 at 10:00; Status DC Sodium Chloride 1,000 ml @ 100 mls/hr Q10H IV Last administered on 04/04/20at 17:48; Start 04/03/20 at 18:46; Stop 04/04/20 at 18:45; Status DC Morphine Sulfate (Morphine Sulfate) 2 mg PRN Q2HR PRN IV MODERATE PAIN 4-6 Last administered on 04/03/20at 22:17; Start 04/03/20 at 21:30; Stop 04/04/20 at 10:16; Status DC Morphine Sulfate (Morphine Sulfate) 4 mg PRN Q2HR PRN IV SEVERE PAIN 7-10 Last administered on 04/04/20at 09:38; Start 04/03/20 at 21:30; Stop 04/04/20 at 09:59; Status DC Ondansetron HCl (Zofran) 4 mg PRN Q4HRS PRN IV NAUSEA/VOMITING Last administered on 04/04/20at 17:47; Start 04/04/20 at 07:45 Acetaminophen (Tylenol) 650 mg PRN Q4HRS PRN PO TEMP OVER 100.4F OR MILD PAIN; Start 04/04/20 at 07:45 Docusate Sodium (Colace) 100 mg PRN BID PRN PO HARD STOOLS; Start 04/04/20 at 07:45 Famotidine (Pepcid) 20 mg BID PO Last administered on 04/04/20 21:24; Start 04/04/20 at 09:00 Furosemide (Lasix) 40 mg BID92 PO Last administered on 04/04/20at 10:46; Start 04/04/20 at 09:00 Lactobacillus Rhamnosus (Culturelle) 1 cap BID PO Last administered on 04/04/20 21:24; Start 04/04/20 at 09:00 Levetiracetam (Keppra) 500 mg BID PO Last administered on 04/04/20 21:25; Start 04/04/20 at 09:00 Ondansetron HCl (Zofran Odt) 4 mg PRN Q8HRS PRN PO nausea and vomiting; Start 04/04/20 at 07:45 Oxycodone/ Acetaminophen (Percocet 5/325) 1 tab PRN Q4HRS PRN PO MODERATE TO SEVERE PAIN; Start 04/04/20 at 07:45; Stop 04/04/20 at 10:15; Status DC Sucralfate (Carafate) 1 gm QIDACHS PO Last administered on 04/04/20at 21:24; Start 04/04/20 at 08:00 Fluoxetine HCl (PROzac) 40 mg DAILY PO Last administered on 04/04/20at 10:45; Start 04/04/20 at 09:00 Doxycycline Hyclate (Vibra-Tab) 100 mg BID PO Last administered on 04/04/20 21:25; Start 04/04/20 at 09:00 Risperidone (RisperDAL) 5 mg BID PO Last administered on 04/04/20at 21:24; Start 04/04/20 at 09:00 Levofloxacin (Levaquin) 500 mg DAILY06 PO Last administered on 04/05/20at 05:30; Start 04/04/20 at 09:00 Metronidazole (Flagyl) 500 mg Q6HRS PO Last administered on 5/27/20at 05:30; Start 04/04/20 at 08:00 Clonazepam (KlonoPIN) 0.5 mg PRN Q6HRS PRN PO ANXIETY / AGITATION Last administered on 04/05/20at 06:34; Start 04/04/20 at 08:15 Acetaminophen/ Hydrocodone Bitart (Lortab 5/325) 1 tab PRN Q6HRS PRN PO MODERATE PAIN Last administered on 04/05/20at 02:31; Start 04/04/20 at 10:15 Morphine Sulfate (Morphine Sulfate) 2 mg PRN Q4HRS PRN IV SEVERE PAIN 7-10 Last administered on 04/05/20at 05:30; Start 04/04/20 at 10:30 Active Scripts Active Doxycycline Monohydrate 100 Mg Capsule 1 Cap PO BID 7 Days Culturelle (Lactobacillus Rhamnosus Gg) 1 Each Cap.sprink 1 Cap PO BID 30 Days Dok (Docusate Sodium) 100 Mg Capsule 100 Mg PO PRN BID PRN 30 Days Tylenol (Acetaminophen) 325 Mg Tablet 650 Mg PO PRN Q4HRS PRN 30 Days Pepcid (Famotidine) 20 Mg Tablet 20 Mg PO BID Zofran Odt (Ondansetron) 4 Mg Tab.rapdis 1 Tab SL Q8HRS PRN Reported Percocet 5-325 mg Tablet (Oxycodone HCl/Acetaminophen) 1 Each Tablet 1 Each PO PRN Q4HRS PRN Flagyl (Metronidazole) 500 Mg Tablet 1 Tab PO Q6HRS Levaquin (Levofloxacin) 500 Mg Tablet 1 Tab PO DAILY 7 Days Keppra (Levetiracetam) 500 Mg Tablet 500 Mg PO BID Carafate (Sucralfate) 1 Gm Tablet 1 Tab PO QID 30 Days Lasix (Furosemide) 40 Mg Tablet 40 Mg PO BID Clonazepam 1 Mg Tablet 0.5 Mg PO PRN Q6HRS PRN Risperdal (Risperidone) 4 Mg Tablet 5 Mg PO BID Prozac (Fluoxetine Hcl) 40 Mg Capsule 1 Cap PO DAILY Vitals/I & O Vital Sign - Last 24 Hours 04/04/20 04/04/20 04/04/20 04/04/20 09:38 11:00 11:41 12:11 Temp 98.2 98.2 Pulse 98 Resp 16 B/P (MAP) 92/56 (68) Pulse Ox 92 O2 Delivery Room Air Room Air Room Air Room Air 04/04/20 04/04/20 04/04/20 04/04/20 12:36 13:37 15:00 15:39 Temp 98.2 98.2 Pulse 93 Resp 16 B/P (MAP) 126/92 (103) Pulse Ox 95 O2 Delivery Room Air Room Air Room Air Room Air 04/04/20 04/04/20 04/04/20 04/04/20 16:10 18:45 19:40 19:43 Temp 98.9 98.9 Pulse 101 Resp 18 20 B/P (MAP) 80/60 (67) Pulse Ox 93 O2 Delivery Room Air Room Air Room Air Room Air 04/04/20 04/04/20 04/04/20 04/04/20 19:45 20:13 23:23 23:26 Temp 98.4 98.4 Pulse 101 90 Resp 20 20 20 B/P (MAP) 80/62 (68) 105/65 (78) Pulse Ox 94 O2 Delivery Room Air Room Air Room Air 04/04/20 04/05/20 04/05/20 04/05/20 23:47 00:17 02:31 03:31 Resp 20 20 20 18 O2 Delivery Room Air Room Air Room Air 04/05/20 04/05/20 04/05/20 03:31 05:30 06:00 Temp 100.0 100.0 Pulse 99 Resp 18 20 20 B/P (MAP) 102/73 (83) Pulse Ox 91 O2 Delivery Room Air Room Air Room Air Intake and Output 04/04/20 04/04/20 04/05/20 15:00 23:00 07:00 Intake Total 1600 ml Balance 1600 ml JONEL GOVEA MD April 05, 2020 08:01
[2020-04-05] MEDS: levETIRAcetam 500 MG TABLET PO SCH (08:30)
[2020-04-05] MEDS: LACTOBACILLUS RHAMNOSUS GG 1 CAPSULE. PO SCH (08:30)
[2020-04-05] MEDS: DOXYCYCLINE HYCLATE 100 MG TABLET PO SCH (08:30)
[2020-04-05] MEDS: risperiDONE 1 MG TABLET. PO SCH (08:30)
[2020-04-05] MEDS: FAMOTIDINE 20 MG TABLET. PO SCH (08:30)
[2020-04-05] MEDS: SUCRALFATE 1 GM TABLET. PO SCH ×2 (08:30→11:51)
[2020-04-05] MEDS: FLUoxetine HCL 20 MG CAPSULE PO SCH (08:30)
[2020-04-05] MEDS: FUROSEMIDE 40 MG TABLET. PO SCH (08:31)
[2020-04-05 08:42] LABS: BASO # 0.1 x10^3/uL (0.0-0.2); BASO % 1 % (0-3); EOS # 0.5 x10^3/uL (0.0-0.7); EOS % 5 % (0-3); HEMATOCRIT 26.9 % (36.0-47.0); HEMOGLOBIN 9.2 g/dL (12.0-15.5); LYMPH # 2.2 x10^3/uL (1.0-4.8); LYMPH % 20 % (24-48); MEAN CORPUSCULAR HEMOGLOBIN 31 pg (25-35); MEAN CORPUSCULAR HGB CONC 34 g/dL (31-37); MEAN CORPUSCULAR VOLUME 90 fL (79-100); MONO # 1.4 x10^3/uL (0.0-1.1); MONO % 13 % (0-9); NEUT # 6.8 x10^3/uL (1.8-7.7); NEUT % 62 % (31-73); PLATELET COUNT 686 x10^3/uL (140-400); RED BLOOD COUNT 2.97 x10^6/uL (3.50-5.40); RED CELL DISTRIBUTION WIDTH 14.2 % (11.5-14.5)
[2020-04-05 08:53] LABS: ALBUMIN 2.2 g/dL (3.4-5.0); ALBUMIN/GLOBULIN RATIO 0.5 (1.0-1.7); C-REACTIVE PROTEIN 28.8 mg/L (0-3.3); CALCIUM 8.5 mg/dL (8.5-10.1); CREATININE 0.9 mg/dL (0.6-1.0); POTASSIUM 3.6 mmol/L (3.5-5.1); TOTAL BILIRUBIN 0.1 mg/dL (0.2-1.0); TOTAL PROTEIN 6.7 g/dL (6.4-8.2)
--- NOTE | 2020-04-05 10:00 | PDOC ---
SURGICAL PROGRESS NOTE Subjective Pt with c/o pain, but better Vital Signs Vital Signs Date Time Temp Pulse Resp B/P (MAP) Pulse Ox O2 Delivery O2 Flow Rate FiO2 04/05/20 09:45 Room Air 04/05/20 07:00 97.8 94 18 128/73 (91) 94 97.8 I&O Intake and Output 04/05/20 07:00 Intake Total 1600 ml Balance 1600 ml Intake Oral 600 ml IV Total 1000 ml # Voids 5 General: Alert, Oriented X3, Cooperative, mild distress Abdomen: Soft, No tenderness, Other (drain in place but minimal purulent drainage) Labs Laboratory Tests Test 04/03/20 13:30 04/03/20 13:38 04/03/20 15:45 04/05/20 08:20 Urine Collection Type Unknown Urine Color Yellow Urine Clarity Clear Urine pH 6.0 (<5.0-8.0) Urine Specific [place] 1.020 (1.000-1.030) Urine Protein Negative mg/dL (NEG-TRACE) Urine Glucose (UA) Negative mg/dL (NEG) Urine Ketones (Stick) Negative mg/dL (NEG) Urine Blood Negative (NEG) Urine Nitrite Negative (NEG) Urine Bilirubin Negative (NEG) Urine Urobilinogen Dipstick 0.2 mg/dL (0.2 mg/dL) Urine Leukocyte Esterase Negative (NEG) Urine RBC 0 /HPF (0-2) Urine WBC 5-10 /HPF (0-4) Urine Squamous Epithelial Cells Many /LPF Urine Bacteria 0 /HPF (0-FEW) Urine Mucus Mod /LPF Urine Opiates Screen Pos (NEG) Urine Methadone Screen Neg (NEG) Urine Barbiturates Neg (NEG) Urine Phencyclidine Screen Neg (NEG) Urine Amphetamine/Methamphetamine Neg (NEG) Urine Benzodiazepines Screen Neg (NEG) Urine Cocaine Screen Neg (NEG) Urine Cannabinoids Screen Neg (NEG) Urine Ethyl Alcohol Neg (NEG) Bedside Urine HCG, Qualitative Hcg negative (Negative) White Blood Count 11.6 x10^3/uL (4.0-11.0) 11.0 x10^3/uL (4.0-11.0) Red Blood Count 3.36 x10^6/uL (3.50-5.40) 2.97 x10^6/uL (3.50-5.40) Hemoglobin 10.3 g/dL (12.0-15.5) 9.2 g/dL (12.0-15.5) Hematocrit 30.4 % (36.0-47.0) 26.9 % (36.0-47.0) Mean Corpuscular Volume 90 fL (79-100) 90 fL (79-100) Mean Corpuscular Hemoglobin 31 pg (25-35) 31 pg (25-35) Mean Corpuscular Hemoglobin Concent 34 g/dL (31-37) 34 g/dL (31-37) Red Cell Distribution Width 13.9 % (11.5-14.5) 14.2 % (11.5-14.5) Platelet Count 868 x10^3/uL (140-400) 686 x10^3/uL (140-400) Neutrophils (%) (Auto) 64 % (31-73) 62 % (31-73) Lymphocytes (%) (Auto) 19 % (24-48) 20 % (24-48) Monocytes (%) (Auto) 10 % (0-9) 13 % (0-9) Eosinophils (%) (Auto) 5 % (0-3) 5 % (0-3) Basophils (%) (Auto) 1 % (0-3) 1 % (0-3) Neutrophils # (Auto) 7.4 x10^3/uL (1.8-7.7) 6.8 x10^3/uL (1.8-7.7) Lymphocytes # (Auto) 2.2 x10^3/uL (1.0-4.8) 2.2 x10^3/uL (1.0-4.8) Monocytes # (Auto) 1.2 x10^3/uL (0.0-1.1) 1.4 x10^3/uL (0.0-1.1) Eosinophils # (Auto) 0.6 x10^3/uL (0.0-0.7) 0.5 x10^3/uL (0.0-0.7) Basophils # (Auto) 0.1 x10^3/uL (0.0-0.2) 0.1 x10^3/uL (0.0-0.2) Prothrombin Time 14.6 SEC (11.7-14.0) Prothromb Time International Ratio 1.2 (0.8-1.1) Sodium Level 136 mmol/L (136-145) 136 mmol/L (136-145) Potassium Level 4.2 mmol/L (3.5-5.1) 3.6 mmol/L (3.5-5.1) Chloride Level 100 mmol/L (98-107) 101 mmol/L (98-107) Carbon Dioxide Level 27 mmol/L (21-32) 27 mmol/L (21-32) Anion Gap 9 (6-14) 8 (6-14) Blood Urea Nitrogen 9 mg/dL (7-20) 5 mg/dL (7-20) Creatinine 1.0 mg/dL (0.6-1.0) 0.9 mg/dL (0.6-1.0) Estimated GFR (Cockcroft-Gault) 60.2 68.0 BUN/Creatinine Ratio 9 (6-20) 6 (6-20) Glucose Level 89 mg/dL (70-99) 94 mg/dL (70-99) Calcium Level 8.6 mg/dL (8.5-10.1) 8.5 mg/dL (8.5-10.1) Total Bilirubin 0.2 mg/dL (0.2-1.0) 0.1 mg/dL (0.2-1.0) Aspartate Amino Transf (AST/SGOT) 10 U/L (15-37) 35 U/L (15-37) Alanine Aminotransferase (ALT/SGPT) 10 U/L (14-59) 35 U/L (14-59) Alkaline Phosphatase 142 U/L (46-116) 545 U/L (46-116) Troponin I Quantitative < 0.017 ng/mL (0.000-0.055) Total Protein 6.8 g/dL (6.4-8.2) 6.7 g/dL (6.4-8.2) Albumin 2.6 g/dL (3.4-5.0) 2.2 g/dL (3.4-5.0) Albumin/Globulin Ratio 0.6 (1.0-1.7) 0.5 (1.0-1.7) Lipase 52 U/L (73-393) Erythrocyte Sedimentation Rate 107 (0-25) C-Reactive Protein, Quantitative 28.8 mg/L (0-3.3) Laboratory Tests Test 04/05/20 08:20 White Blood Count 11.0 x10^3/uL (4.0-11.0) Red Blood Count 2.97 x10^6/uL (3.50-5.40) Hemoglobin 9.2 g/dL (12.0-15.5) Hematocrit 26.9 % (36.0-47.0) Mean Corpuscular Volume 90 fL (79-100) Mean Corpuscular Hemoglobin 31 pg (25-35) Mean Corpuscular Hemoglobin Concent 34 g/dL (31-37) Red Cell Distribution Width 14.2 % (11.5-14.5) Platelet Count 686 x10^3/uL (140-400) Neutrophils (%) (Auto) 62 % (31-73) Lymphocytes (%) (Auto) 20 % (24-48) Monocytes (%) (Auto) 13 % (0-9) Eosinophils (%) (Auto) 5 % (0-3) Basophils (%) (Auto) 1 % (0-3) Neutrophils # (Auto) 6.8 x10^3/uL (1.8-7.7) Lymphocytes # (Auto) 2.2 x10^3/uL (1.0-4.8) Monocytes # (Auto) 1.4 x10^3/uL (0.0-1.1) Eosinophils # (Auto) 0.5 x10^3/uL (0.0-0.7) Basophils # (Auto) 0.1 x10^3/uL (0.0-0.2) Erythrocyte Sedimentation Rate 107 (0-25) Sodium Level 136 mmol/L (136-145) Potassium Level 3.6 mmol/L (3.5-5.1) Chloride Level 101 mmol/L (98-107) Carbon Dioxide Level 27 mmol/L (21-32) Anion Gap 8 (6-14) Blood Urea Nitrogen 5 mg/dL (7-20) Creatinine 0.9 mg/dL (0.6-1.0) Estimated GFR (Cockcroft-Gault) 68.0 BUN/Creatinine Ratio 6 (6-20) Glucose Level 94 mg/dL (70-99) Calcium Level 8.5 mg/dL (8.5-10.1) Total Bilirubin 0.1 mg/dL (0.2-1.0) Aspartate Amino Transf (AST/SGOT) 35 U/L (15-37) Alanine Aminotransferase (ALT/SGPT) 35 U/L (14-59) Alkaline Phosphatase 545 U/L (46-116) C-Reactive Protein, Quantitative 28.8 mg/L (0-3.3) Total Protein 6.7 g/dL (6.4-8.2) Albumin 2.2 g/dL (3.4-5.0) Albumin/Globulin Ratio 0.5 (1.0-1.7) Problem List Problems Medical Problems: (1) Uncontrolled pain Status: Acute Assessment/Plan abd pain will ask IR about d/c'ing drain otherwise OK to work towards d/c EDWARD GARCIA MD April 05, 2020 10:00
--- NOTE | 2020-04-05 10:53 | PDOC ---
Provider Note Provider Note IR NOTE Perctutaneous abscess, adjacent to stomach following perf gastric ulcer with gopal patch, Drain placed 5.18.20. Now minimal purulent appearing drainage, estimate 10 cc daily. Pt has not been flushing drain or recording output at home. Would like to keep drain, with bid flushes until 5-10 cc serous output. Can return in 1 week for drain check and hopefully, pull. LUÍS PERDUE MD April 05, 2020 10:53
[2020-04-05 11:13] VITALS: BP 133/52
[2020-04-05] MEDS ORDERED: HYDR-2761 PO (12:37)
--- NOTE | 2020-04-05 12:52 | PDOC3 ---
Discharge Summary Visit Information Date of Admission: April 03, 2020 Date of Discharge: April 05, 2020 Admitting Diagnosis: Intractable abdominal pain Final Diagnosis Problems Medical Problems: (1) Uncontrolled pain Status: Acute Brief Hospital Course Allergies Allergies Coded Allergies Type Severity Reaction Last Updated Verified Cephalexin Monohydrate Allergy Intermediate 03/18/20 Yes NSAIDS (Non-Steroidal Anti-Inflamma Allergy Intermediate 03/18/20 Yes Penicillins Allergy Intermediate 03/18/20 Yes iodine Allergy Intermediate 03/18/20 Yes lidocaine Allergy Intermediate 03/18/20 Yes prochlorperazine edisylate Allergy Intermediate 03/18/20 Yes prochlorperazine maleate Allergy Intermediate 03/18/20 Yes sulfamethoxazole Allergy Intermediate 03/18/20 Yes trimethoprim Allergy Intermediate 03/18/20 Yes Vital Signs Vital Signs Date Time Temp Pulse Resp B/P (MAP) Pulse Ox O2 Delivery O2 Flow Rate FiO2 04/05/20 11:13 98.3 90 18 133/52 (79) 93 Room Air 98.3 Lab Results Laboratory Tests Test 04/03/20 13:30 04/03/20 13:38 04/03/20 15:45 04/05/20 08:20 Urine Collection Type Unknown Urine Color Yellow Urine Clarity Clear Urine pH 6.0 (<5.0-8.0) Urine Specific [place] 1.020 (1.000-1.030) Urine Protein Negative mg/dL (NEG-TRACE) Urine Glucose (UA) Negative mg/dL (NEG) Urine Ketones (Stick) Negative mg/dL (NEG) Urine Blood Negative (NEG) Urine Nitrite Negative (NEG) Urine Bilirubin Negative (NEG) Urine Urobilinogen Dipstick 0.2 mg/dL (0.2 mg/dL) Urine Leukocyte Esterase Negative (NEG) Urine RBC 0 /HPF (0-2) Urine WBC 5-10 /HPF (0-4) Urine Squamous Epithelial Cells Many /LPF Urine Bacteria 0 /HPF (0-FEW) Urine Mucus Mod /LPF Urine Opiates Screen Pos (NEG) Urine Methadone Screen Neg (NEG) Urine Barbiturates Neg (NEG) Urine Phencyclidine Screen Neg (NEG) Urine Amphetamine/Methamphetamine Neg (NEG) Urine Benzodiazepines Screen Neg (NEG) Urine Cocaine Screen Neg (NEG) Urine Cannabinoids Screen Neg (NEG) Urine Ethyl Alcohol Neg (NEG) Bedside Urine HCG, Qualitative Hcg negative (Negative) White Blood Count 11.6 x10^3/uL (4.0-11.0) 11.0 x10^3/uL (4.0-11.0) Red Blood Count 3.36 x10^6/uL (3.50-5.40) 2.97 x10^6/uL (3.50-5.40) Hemoglobin 10.3 g/dL (12.0-15.5) 9.2 g/dL (12.0-15.5) Hematocrit 30.4 % (36.0-47.0) 26.9 % (36.0-47.0) Mean Corpuscular Volume 90 fL (79-100) 90 fL (79-100) Mean Corpuscular Hemoglobin 31 pg (25-35) 31 pg (25-35) Mean Corpuscular Hemoglobin Concent 34 g/dL (31-37) 34 g/dL (31-37) Red Cell Distribution Width 13.9 % (11.5-14.5) 14.2 % (11.5-14.5) Platelet Count 868 x10^3/uL (140-400) 686 x10^3/uL (140-400) Neutrophils (%) (Auto) 64 % (31-73) 62 % (31-73) Lymphocytes (%) (Auto) 19 % (24-48) 20 % (24-48) Monocytes (%) (Auto) 10 % (0-9) 13 % (0-9) Eosinophils (%) (Auto) 5 % (0-3) 5 % (0-3) Basophils (%) (Auto) 1 % (0-3) 1 % (0-3) Neutrophils # (Auto) 7.4 x10^3/uL (1.8-7.7) 6.8 x10^3/uL (1.8-7.7) Lymphocytes # (Auto) 2.2 x10^3/uL (1.0-4.8) 2.2 x10^3/uL (1.0-4.8) Monocytes # (Auto) 1.2 x10^3/uL (0.0-1.1) 1.4 x10^3/uL (0.0-1.1) Eosinophils # (Auto) 0.6 x10^3/uL (0.0-0.7) 0.5 x10^3/uL (0.0-0.7) Basophils # (Auto) 0.1 x10^3/uL (0.0-0.2) 0.1 x10^3/uL (0.0-0.2) Prothrombin Time 14.6 SEC (11.7-14.0) Prothromb Time International Ratio 1.2 (0.8-1.1) Sodium Level 136 mmol/L (136-145) 136 mmol/L (136-145) Potassium Level 4.2 mmol/L (3.5-5.1) 3.6 mmol/L (3.5-5.1) Chloride Level 100 mmol/L (98-107) 101 mmol/L (98-107) Carbon Dioxide Level 27 mmol/L (21-32) 27 mmol/L (21-32) Anion Gap 9 (6-14) 8 (6-14) Blood Urea Nitrogen 9 mg/dL (7-20) 5 mg/dL (7-20) Creatinine 1.0 mg/dL (0.6-1.0) 0.9 mg/dL (0.6-1.0) Estimated GFR (Cockcroft-Gault) 60.2 68.0 BUN/Creatinine Ratio 9 (6-20) 6 (6-20) Glucose Level 89 mg/dL (70-99) 94 mg/dL (70-99) Calcium Level 8.6 mg/dL (8.5-10.1) 8.5 mg/dL (8.5-10.1) Total Bilirubin 0.2 mg/dL (0.2-1.0) 0.1 mg/dL (0.2-1.0) Aspartate Amino Transf (AST/SGOT) 10 U/L (15-37) 35 U/L (15-37) Alanine Aminotransferase (ALT/SGPT) 10 U/L (14-59) 35 U/L (14-59) Alkaline Phosphatase 142 U/L (46-116) 545 U/L (46-116) Troponin I Quantitative < 0.017 ng/mL (0.000-0.055) Total Protein 6.8 g/dL (6.4-8.2) 6.7 g/dL (6.4-8.2) Albumin 2.6 g/dL (3.4-5.0) 2.2 g/dL (3.4-5.0) Albumin/Globulin Ratio 0.6 (1.0-1.7) 0.5 (1.0-1.7) Lipase 52 U/L (73-393) Erythrocyte Sedimentation Rate 107 (0-25) C-Reactive Protein, Quantitative 28.8 mg/L (0-3.3) Laboratory Tests Test 04/05/20 08:20 White Blood Count 11.0 x10^3/uL (4.0-11.0) Red Blood Count 2.97 x10^6/uL (3.50-5.40) Hemoglobin 9.2 g/dL (12.0-15.5) Hematocrit 26.9 % (36.0-47.0) Mean Corpuscular Volume 90 fL (79-100) Mean Corpuscular Hemoglobin 31 pg (25-35) Mean Corpuscular Hemoglobin Concent 34 g/dL (31-37) Red Cell Distribution Width 14.2 % (11.5-14.5) Platelet Count 686 x10^3/uL (140-400) Neutrophils (%) (Auto) 62 % (31-73) Lymphocytes (%) (Auto) 20 % (24-48) Monocytes (%) (Auto) 13 % (0-9) Eosinophils (%) (Auto) 5 % (0-3) Basophils (%) (Auto) 1 % (0-3) Neutrophils # (Auto) 6.8 x10^3/uL (1.8-7.7) Lymphocytes # (Auto) 2.2 x10^3/uL (1.0-4.8) Monocytes # (Auto) 1.4 x10^3/uL (0.0-1.1) Eosinophils # (Auto) 0.5 x10^3/uL (0.0-0.7) Basophils # (Auto) 0.1 x10^3/uL (0.0-0.2) Erythrocyte Sedimentation Rate 107 (0-25) Sodium Level 136 mmol/L (136-145) Potassium Level 3.6 mmol/L (3.5-5.1) Chloride Level 101 mmol/L (98-107) Carbon Dioxide Level 27 mmol/L (21-32) Anion Gap 8 (6-14) Blood Urea Nitrogen 5 mg/dL (7-20) Creatinine 0.9 mg/dL (0.6-1.0) Estimated GFR (Cockcroft-Gault) 68.0 BUN/Creatinine Ratio 6 (6-20) Glucose Level 94 mg/dL (70-99) Calcium Level 8.5 mg/dL (8.5-10.1) Total Bilirubin 0.1 mg/dL (0.2-1.0) Aspartate Amino Transf (AST/SGOT) 35 U/L (15-37) Alanine Aminotransferase (ALT/SGPT) 35 U/L (14-59) Alkaline Phosphatase 545 U/L (46-116) C-Reactive Protein, Quantitative 28.8 mg/L (0-3.3) Total Protein 6.7 g/dL (6.4-8.2) Albumin 2.2 g/dL (3.4-5.0) Albumin/Globulin Ratio 0.5 (1.0-1.7) Brief Hospital Course Ms Goncalves is a 44yo F w/ PMHx COPD, DVT s/p IVC filter, hypercholesterolemia, hypertension, kidney stones, myocardial infarction, peptic ulcer disease (perforated s/p inderjit patch), seizures, anxiety/depression, BP disorder, questionable history of lupus and morbid obesity who comes to the ED on 04/03/2020 after vomiting after eating a tilapia filet and notes worsening abdominal pain. She has requested hydrocodone by name, notes she doesn't think oxycodone works for her. She was discharged on 03/21, returned to the hospital due to abdominal pain and small separation of her incision on March 24- and CT of her abdomen pelvis done with abnormal findings and on 03/27 CT-guided drain placement was placed by IR. This drain is currently draining purulent thick fluid, cultures negative for bacterial or fungal growth. She was on micafungin, levaquin and vancomycin and was discharged on flagyl, levaquin, and doxycycline for 7 days to complete on 04/07/2020. Abdominal incision looks to be healing but has drainage. There is no redness or cellulitis around the abdominal incision area. Patient changes her dressings [place]. Patient rating her pain a 10 out of 10 and states she has nausea and vomiting. Patient states this pain feels like the pain that she had before she had her surgery. Has a mild appetite currently. No complications passing her urine. Denies any rashes. No gross shortness of breath. Of note, she has had over 20 ED visits in the last year for various pain complaints. CT abdomen/pelvis overall improved from prior, resolution of the previously demonstrated gas-containing fluid collection along the anterior wall of the distal gastric antrum. WBC 11.6, Hb 10.3, Platelets 868, Na 136, K 4.2, BUN 9, Cr 1, glucose 89, Alkaline phosphatase 142, INR 1.2, Albumin 2.6. Admitted for further care. Seen by IR, patient educated on flushing her drain. She is feeling better, walking the halls. She is asking to increase the frequency of pain medication and we had a long discussion about potential drug-seeking behavior given that she is not exhibiting other signs of pain. Advised that her ED visit frequency is an indication she needs to work more on coping mechanisms, she agrees. Will transition to no more than 2 hydrocodone 5mg for the next 6 days. Consults: General surgery, IR: "Perctutaneous abscess, adjacent to stomach following perf gastric ulcer with inderjit patch, Drain placed 5. Now minimal purulent appearing drainage, estimate 10 cc daily. Pt has not been flushing drain or recording output at home. Would like to keep drain, with bid flushes until 5-10 cc serous output. Can return in 1 week for drain check and hopefully, pull." F/u with general surgery, IR, and the [facility] as well. Problem list: Nausea and vomiting - IV antiemetics, she is asking for PO already Abdominal pain - Perforated gastric ulcer status post repair of perforated ulcer with inderjit patch now with recurrent pain. Will cont antibiotics and pain control. Has h/o drug seeking behavior documented, will minimize IV pain medications, change to hydrocodone Leukocytosis - mild, will trend Diffuse peritonitis - improved from prior Exploratory laparotomy on 03/15/2020, repair of perforated ulcer with Inderjit patch. Antibiotic allergies, all cause swelling and trouble breathing. Transaminitis. History of lupus. Right basilar airspace disease, atelectasis versus pneumonia. There is a moder ate size pleural effusion which is improving Normocytic Anemia with Hb 10.3 on admission Multiple abx allergies: PCN/Keflex/Bactrim - swelling and trouble breathing Bilateral nephrolithiasis, nonobstructive Schizophrenia/bipolar disorder Anxiety/depression History of Lupus History of CHF history of COPD Prior Smoker Greater than 30 minutes spent on d/c Discharge Information Condition at Discharge: Improved Follow Up: Weeks (1) Disposition/Orders: D/C to Home Scheduled Doxycycline Monohydrate (Doxycycline Monohydrate) 100 Mg Capsule, 1 CAP PO BID for INFECTION for 7 Days, #14 Prescribed by: BETZY BORDEN MD on 03/31/20 1232 Last Action: Converted on 04/04/20748 by JONEL GOVEA MD Famotidine (Pepcid) 20 Mg Tablet, 20 MG PO BID, #14 Prescribed by: GREGORIA SLAUGHTER D.O. on 11/17/192104 Last Action: Continued on 04/04/20748 by JONEL GOVEA MD Fluoxetine Hcl (Prozac) 40 Mg Capsule, 1 CAP PO DAILY, #30 Ref 3 (Reported) Entered as Reported by: LAXMI CHING on 06/29/17 1607 Last Action: Converted on 04/04/20748 by JONEL GOVEA MD Furosemide (Lasix) 40 Mg Tablet, 40 MG PO BID for chf, (Reported) Entered as Reported by: JANUARY RAVI on 03/15/20 0639 Last Action: Continued on 04/04/20748 by JONEL GOVEA MD Lactobacillus Rhamnosus Gg (Culturelle) 1 Each Cap.sprink, 1 CAP PO BID for SUPPLEMENT for 30 Days, #60 Prescribed by: BETZY BORDEN MD on 03/31/201231 Last Action: Continued on 04/04/20748 by JONEL GOVEA MD Levetiracetam (Keppra) 500 Mg Tablet, 500 MG PO BID for , (Reported) Entered as Reported by: DEAGNELO MOMIN, RN on 03/15/20 0835 Last Action: Continued on 04/04/20748 by JONEL GOVEA MD Levofloxacin (Levaquin) 500 Mg Tablet, 1 TAB PO DAILY for post surgical for 7 Days, #7 Ref 0 (Reported) Entered as Reported by: EYAD BURGOS on 03/21/20 1444 Last Action: Continued on 04/04/20 0751 by JONEL GOVEA MD Metronidazole (Flagyl) 500 Mg Tablet, 1 TAB PO Q6HRS for post surgical , #14 (Reported) Entered as Reported by: EYAD AUBREY on 03/21/20 1448 Last Action: Continued on 04/04/20750 by JONEL GOVEA MD Risperidone (Risperdal) 4 Mg Tablet, 5 MG PO BID, (Reported) Entered as Reported by: LAXMI CHING on 06/29/17 160 Last Action: Converted on 04/04/20748 by JONEL GOVEA MD Sucralfate (Carafate) 1 Gm Tablet, 1 TAB PO QID for ulcers for 30 Days, #120 Ref 0 (Reported) Entered as Reported by: JANUARY RAVI on 03/15/20 0700 Last Action: Continued on 04/04/20748 by JONEL GOVEA MD Scheduled PRN Acetaminophen (Tylenol) 325 Mg Tablet, 650 MG PO PRN Q4HRS PRN for TEMP OVER 100.4F OR MILD PAIN for 30 Days, #90 Prescribed by: BETZY BORDEN MD on 03/31/20 1232 Last Action: Continued on 04/04/20748 by JONEL GOVEA MD Clonazepam (Clonazepam) 1 Mg Tablet, 0.5 MG PO PRN Q6HRS PRN for ANXIETY, (Reported) Entered as Reported by: LAXMI CHING on 06/29/177 Last Action: Converted on 04/04/20750 by JONEL GOVEA MD Docusate Sodium (Dok) 100 Mg Capsule, 100 MG PO PRN BID PRN for HARD STOOLS for 30 Days, #30 Prescribed by: BETZY BORDEN MD on 03/31/20 1232 Last Action: Continued on 04/04/20748 by JONEL GOVEA MD Hydrocodone Bit/Acetaminophen (Hydrocodone-Apap 5-325 ) 1 Tab Tablet, 1 TAB PO PRN BID PRN for MODERATE PAIN for 6 Days, #12 Prescribed by: JONEL GOVEA MD on 04/05/20 1238 Ondansetron (Zofran Odt) 4 Mg Tab.rapdis, 1 TAB SL Q8HRS PRN for nausea and vomiting, #15 Prescribed by: NAVEED ARMANDO APRN on 07/30/17 2242 Last Action: Continued on 04/04/2049 by JONEL GOVEA MD Discontinued Medications Oxycodone HCl/Acetaminophen (Percocet 5-325 mg Tablet) 1 Each Tablet, 1 EACH PO PRN Q4HRS PRN for PAIN, #22 Ref 0 (Reported) Entered as Reported by: SOFIE DUNN on 03/31/20 1734 Last Action: Continued on 04/04/2049 by JONEL GOVEA MD Oxycodone Hcl (Oxycodone Hcl) 5 Mg Capsule, 5 MG PO PRN Q6HRS PRN for PAIN, Ref 0 (Reported) Entered as Reported by: EYAD BURGOS on 03/21/20 1446 Zolpidem Tartrate (Ambien) 10 Mg Tablet, 10 MG PO HS PRN for INSOMNIA, Ref 0 (Reported) Entered as Reported by: LAXMI CHING on 06/29/17 1607 JONEL GOVEA MD April 05, 2020 12:52
--- NOTE | 2020-04-05 13:21 | NUR ---
Pt discharged home with self care. Discharge instructions and prescriptions discussed. Pt verbalized understanding. Provided supplies for dressing changes and NS to flush drain twice daily. IV removed. Pt assisted to wheelchair and was taken to main entrance and secured in transportation van.
== END 2020-04-05 13:15 | disposition home or self-care (01) | DRG 602 ==
LOC: ER 13:07 → 4 NORTH 20:02
PROVIDERS: ADMIT Internal Medicine; ATTEND Internal Medicine
DX: L02.211 Cutaneous abscess of abdominal wall (principal); J18.9 Pneumonia, unspecified organism; K65.0 Generalized (acute) peritonitis; D64.9 Anemia, unspecified; Z68.37 Body mass index [BMI] 37.0-37.9, adult; E78.00 Pure hypercholesterolemia, unspecified; F17.210 Nicotine dependence, cigarettes, uncomplicated; F20.9 Schizophrenia, unspecified; F31.9 Bipolar disorder, unspecified; F41.9 Anxiety disorder, unspecified; I11.0 Hypertensive heart disease with heart failure; I25.2 Old myocardial infarction; I50.9 Heart failure, unspecified; J44.9 Chronic obstructive pulmonary disease, unspecified; Z82.0 Family history of epilepsy and other diseases of the nervous system; Z86.711 Personal history of pulmonary embolism; Z87.11 Personal history of peptic ulcer disease; Z87.442 Personal history of urinary calculi; Z88.0 Allergy status to penicillin; Z88.1 Allergy status to other antibiotic agents; Z90.49 Acquired absence of other specified parts of digestive tract; Z90.710 Acquired absence of both cervix and uterus; Z95.828 Presence of other vascular implants and grafts; K21.9 Gastro-esophageal reflux disease without esophagitis; Z86.718 Personal history of other venous thrombosis and embolism; M32.9 Systemic lupus erythematosus, unspecified; Z88.8 Allergy status to other drugs, medicaments and biological substances; Z91.041 Radiographic dye allergy status; D72.829 Elevated white blood cell count, unspecified; E66.01 Morbid (severe) obesity due to excess calories
CPT/HCPCS: 36415; 74176; 80053; 80307; 81001; 81025; 83690; 84484; 85025; 85610; 85651; 86140; 87086; 93005; 96361; 96374; 96375; J2270; J2405; J3010; J7030; 99285-25; G0378

== ENCOUNTER 2020-04-15 11:22 | Inpatient (IN) | payer SELFPAY ==
[~2020-04-15] VITALS: Ht 172.7 cm; Wt 103.3 kg
[~2020-04-15 11:22] MED LIST changes: +HYDR-2761 PO
[2020-04-15 12:15] LABS: BILIRUBIN,URINE NEGATIVE (NEG); CLARITY,URINE CLEAR; COLOR,URINE YELLOW; NITRITE,URINE NEGATIVE (NEG); PH,URINE 5.5 (<5.0-8.0); PROTEIN,URINE 30 mg/dL (NEG-TRACE); UROBILINOGEN,URINE 0.2 mg/dL (0.2 mg/dL)
[2020-04-15] MEDS ORDERED: ONDANSETRON PF 4 MG/2 ML VIAL. IVP ONE ×2 (12:15→15:30)
[2020-04-15 12:22] LABS: SQUAMOUS EPITHELIAL CELL,UR MANY /LPF
[2020-04-15 12:23] LABS: BACTERIA,URINE FEW /HPF (0-FEW)
[2020-04-15] MEDS ORDERED: IV NORMAL SALINE 1000ML BAG 1,920 ML IV SCH (12:35)
[2020-04-15] MEDS ORDERED: MORPHINE SULFATE 4 MG/ML VIAL. IV ONE (12:45)
--- NOTE | 2020-04-15 13:23 | PHYS DOC ---
Past Medical History Past Medical History: CHF, COPD, DVT, High Cholesterol, Hypertension, Kidney Stone, [place], P.U.D., Seizure, UTI, Other Additional Past Medical Histor: Pulmonary Embolism, Lupus, Bleeding Gastric Ulcers Past Surgical History: Appendectomy, Cholecystectomy, , Hysterectomy, Tonsillectomy, Other Additional Past Surgical Histo: IVC filter placed and removed Smoking Status: Former Smoker Alcohol Use: Rarely Drug Use: None General Adult EDM: Chief Complaint: ABDOMINAL PAIN HPI: HPI: Patient is a 44 year old female with a history of [place], hypertension, high cholesterol, COPD, CHF, seizures, who presents the ED today complaining of moderate epigastric and right upper quadrant abdominal pain, symptoms began this morning. Patient is also complaining of nausea vomiting, denies any diarrhea. She reports she had abdominal surgery on March 14, 2020 to repair a perforated viscus. She reports around March 24, 2020 she was also admitted for dehisced surgical incision. Patient denies any fever. Review of Systems: Review of Systems: Constitutional: Denies fever or chills. [] Eyes: Denies change in visual acuity. [] HENT: Denies nasal congestion or sore throat. [] Respiratory: Denies cough or shortness of breath. [] Cardiovascular: Denies chest pain or edema. [] GI: Reports abdominal pain, nausea and vomiting, denies bloody stools or diarrhea. [] : Denies dysuria. [] Musculoskeletal: Denies back pain or joint pain. [] Integument: Denies rash. [] Neurologic: Denies headache, focal weakness or sensory changes. [] Psychiatric: Denies depression or anxiety. [] Heart Score: Risk Factors: Risk Factors: DM, Current or recent (<one month) smoker, HTN, HLP, family history of CAD, obesity. Risk Scores: Score 0 - 3: 2.5% MACE over next 6 weeks - Discharge Home Score 4 - 6: 20.3% MACE over next 6 weeks - Admit for Clinical Observation Score 7 - 10: 72.7% MACE over next 6 weeks - Early Invasive Strategies Current Medications: Current Medications Medications (Trade) Dose Ordered Sig/Tex Start Time Stop Time Status Last Admin Dose Admin Morphine Sulfate (Morphine Sulfate) 4 mg PRN Q15MIN PRN 04/15/20 12:45 04/16/20 12:44 Ondansetron HCl (Zofran) 4 mg 1X ONCE 04/15/20 12:15 04/15/20 12:16 DC 04/15/20 12:43 4 MG Sodium Chloride 1,000 ml @ 1,920 mls/hr Q32M 04/15/20 12:51 04/15/20 13:35 Allergies: Allergies: Allergies Coded Allergies Type Severity Reaction Last Updated Verified Cephalexin Monohydrate Allergy Intermediate 03/18/20 Yes NSAIDS (Non-Steroidal Anti-Inflamma Allergy Intermediate 03/18/20 Yes Penicillins Allergy Intermediate 03/18/20 Yes iodine Allergy Intermediate 03/18/20 Yes lidocaine Allergy Intermediate 03/18/20 Yes prochlorperazine edisylate Allergy Intermediate 03/18/20 Yes prochlorperazine maleate Allergy Intermediate 03/18/20 Yes sulfamethoxazole Allergy Intermediate 03/18/20 Yes trimethoprim Allergy Intermediate 03/18/20 Yes Physical Exam: PE: Constitutional: Well developed, well nourished, no acute distress, non-toxic appearance. [] HENT: Normocephalic, atraumatic, bilateral external ears normal, oropharynx moist, no oral exudates, nose normal. [] Eyes: PERRLA, EOMI, conjunctiva normal, no discharge. [] Neck: Normal range of motion, no tenderness, supple, no stridor. [] Cardiovascular:Heart rate regular rhythm, no murmur [] Lungs & Thorax: Bilateral breath sounds clear to auscultation [] Abdomen: Midline surgical incision noted with crustiness around the incision site. No redness. MEGAN drain noted on the right upper abdomen. Bowel sounds normal, soft, diffuse tenderness throughout the abdomen worse in the midline incisional site, no masses, no pulsatile masses. [] Skin: Warm, dry, no erythema, no rash. [] Back: No tenderness, no CVA tenderness. [] Extremities: No tenderness, no cyanosis, no clubbing, ROM intact, no edema. [] Neurologic: Alert and oriented X 3, normal motor function, normal sensory function, no focal deficits noted. [] Psychologic: Flat affect Current Patient Data: Labs: Laboratory Tests Test 04/15/20 11:33 Urine Collection Type Unknown Urine Color Yellow Urine Clarity Clear Urine pH 5.5 (<5.0-8.0) Urine Specific [place] 1.025 (1.000-1.030) Urine Protein 30 mg/dL (NEG-TRACE) Urine Glucose (UA) Negative mg/dL (NEG) Urine Ketones (Stick) Negative mg/dL (NEG) Urine Blood Negative (NEG) Urine Nitrite Negative (NEG) Urine Bilirubin Negative (NEG) Urine Urobilinogen Dipstick 0.2 mg/dL (0.2 mg/dL) Urine Leukocyte Esterase Trace (NEG) Urine RBC 1-2 /HPF (0-2) Urine WBC 5-10 /HPF (0-4) Urine Squamous Epithelial Cells Many /LPF Urine Transitional Epithelial Cells Few /LPF Urine Bacteria Few /HPF (0-FEW) Urine Mucus Marked /LPF Vital Signs: Vital Signs Date Time Temp Pulse Resp B/P (MAP) Pulse Ox O2 Delivery O2 Flow Rate FiO2 04/15/20 11:36 98.7 122 16 144/90 (108) 98 Room Air 98.7 EKG: EKG: [] Radiology/Procedures: Radiology/Procedures: []PROCEDURE: CT ABDOMEN PELVIS WO CONTRAST CT abdomen and pelvis without contrast PQRS statement: CT scans at this facility use dose reduction including either automated exposure control, iterative reconstructions, and /or weight based radiation dosing via mA and kV modification when appropriate to reduce radiation dose to as low as reasonably achievable. HISTORY: Abdominal pain. Recent cyst drain. COMPARISON: CT abdomen and pelvis April 03, 2020. Abdomen findings: Prominence of the bile ducts typical after cholecystectomy. Percutaneous drainage catheter the gallbladder fossa again demonstrated however there is decreased edema at the right upper quadrant surrounding the catheter as well as surrounding the gastric antrum, duodenum. There is mild persistent edema as well as gastric antrum wall thickening. No drainable fluid collection evident. Pancreas, spleen, adrenal glands, liver unremarkable. IVC filter. Bilateral nonobstructing renal calculi. No ureteral calculi. No hydronephrosis. No obstruction or inflammation the lower GI tract. Appendix not visualized may be surgically absent or obscured by surrounding small bowel loops. Pelvis findings: Hysterectomy and bilateral salpingohysterectomy. No bladder calculi. Rectum and bones are unremarkable. No pelvic fluid. IMPRESSION: 1. Cholecystectomy. Persistent percutaneous right upper quadrant pigtail drainage catheter at the gallbladder fossa. No fluid collection evident. There is decreased edema surrounding the catheter at the right upper quadrant since the prior exam. 2. Persistent but decreased gastric antrum wall thickening adjacent of the drainage catheter could be thickening of the wall from reactive edema versus gastritis or neoplastic thickening. This gastric wall thickening appears to be new compared to imaging prior to March 2020, favoring that it is inflammatory rather than neoplastic. 3. Small nonobstructing renal calculi. Electronically signed by: Guillermina Aguilar MD (04/15/2020 1:31 PM) [id number] DICTATED and SIGNED BY: GUILLERMINA AGUILAR MD DATE: 04/15/20 1331 Course & Med Decision Making: Course & Med Decision Making Pertinent Labs and Imaging studies reviewed. (See chart for details) This is a 44-year-old female patient presenting to the ED today complaining of abdominal pain, nausea vomiting, symptoms began this morning. Patient had surgery to repair perforated viscus on March 14, 2020. She did develop dehisced incision around March 24, 2020 and she was admitted for that. CBC with a WBC of 11.8, [id number]. CMP with nothing really acute. CT of the abdomen and pelvis-please see results, patient appears to be improving Patient has consumed a tremendous amount of pain medicine in the ED. Spoke with Dr. Moss who accepted patient for admission Re Disclaimer: Re Disclaimer: This electronic medical record was generated, in whole or in part, using a voice recognition dictation system. Departure Departure Impression: Primary Impression: Intractable abdominal pain Additional Impression: Thrombocytopenia Disposition: ADMITTED INPATIENT Condition: STABLE Referrals: UNKNOWN PCP NAME (PCP) Justicifation of Admission Dx: Justifications for Admission: Justification of Admission Dx: Yes CHF: Sev. Electrolyte Abnormal BALA FAJARDO [employer]PER[employer] Apr 15, 2020 13:23
[2020-04-15] MEDS: MORPHINE SULFATE 4 MG/ML VIAL. IV/SQ PRN ×3 (13:24→15:26)
--- NOTE | 2020-04-15 13:34 | RAD ---
CT abdomen and pelvis without contrast PQRS statement: CT scans at this facility use dose reduction including either automated exposure control, iterative reconstructions, and /or weight based radiation dosing via mA and kV modification when appropriate to reduce radiation dose to as low as reasonably achievable. HISTORY: Abdominal pain. Recent cyst drain. COMPARISON: CT abdomen and pelvis April 03, 2020. Abdomen findings: Prominence of the bile ducts typical after cholecystectomy. Percutaneous drainage catheter the gallbladder fossa again demonstrated however there is decreased edema at the right upper quadrant surrounding the catheter as well as surrounding the gastric antrum, duodenum. There is mild persistent edema as well as gastric antrum wall thickening. No drainable fluid collection evident. Pancreas, spleen, adrenal glands, liver unremarkable. IVC filter. Bilateral nonobstructing renal calculi. No ureteral calculi. No hydronephrosis. No obstruction or inflammation the lower GI tract. Appendix not visualized may be surgically absent or obscured by surrounding small bowel loops. Pelvis findings: Hysterectomy and bilateral salpingohysterectomy. No bladder calculi. Rectum and bones are unremarkable. No pelvic fluid. IMPRESSION: 1. Cholecystectomy. Persistent percutaneous right upper quadrant pigtail drainage catheter at the gallbladder fossa. No fluid collection evident. There is decreased edema surrounding the catheter at the right upper quadrant since the prior exam. 2. Persistent but decreased gastric antrum wall thickening adjacent of the drainage catheter could be thickening of the wall from reactive edema versus gastritis or neoplastic thickening. This gastric wall thickening appears to be new compared to imaging prior to March 2020, favoring that it is inflammatory rather than neoplastic. 3. Small nonobstructing renal calculi. Electronically signed by: Julian Aguilar MD (04/15/2020 1:31 PM) [id number]
[2020-04-15] MEDS: IV NORMAL SALINE 1000ML BAG 1,000 ML IV SCH ×4 (14:36→22:11)
[2020-04-15 14:38] LABS: BASO # 0.1 x10^3/uL (0.0-0.2); BASO % 1 % (0-3); EOS # 0.7 x10^3/uL (0.0-0.7); EOS % 6 % (0-3); HEMATOCRIT 36.8 % (36.0-47.0); HEMOGLOBIN 12.1 g/dL (12.0-15.5); LYMPH # 2.6 x10^3/uL (1.0-4.8); LYMPH % 22 % (24-48); MEAN CORPUSCULAR HEMOGLOBIN 29 pg (25-35); MEAN CORPUSCULAR HGB CONC 33 g/dL (31-37); MEAN CORPUSCULAR VOLUME 89 fL (79-100); MONO # 0.9 x10^3/uL (0.0-1.1); MONO % 8 % (0-9); NEUT # 7.5 x10^3/uL (1.8-7.7); NEUT % 64 % (31-73); RED BLOOD COUNT 4.12 x10^6/uL (3.50-5.40); RED CELL DISTRIBUTION WIDTH 14.6 % (11.5-14.5); WHITE BLOOD COUNT 11.8 x10^3/uL (4.0-11.0)
[2020-04-15 14:42] LABS: CREATININE 1.4 mg/dL (0.6-1.0); GFR 40.8; POTASSIUM 4.4 mmol/L (3.5-5.1)
[2020-04-15 14:46] LABS: PLATELET COUNT 1061 x10^3/uL (140-400)
[2020-04-15 14:48] LABS: ALBUMIN 3.2 g/dL (3.4-5.0); ALBUMIN/GLOBULIN RATIO 0.5 (1.0-1.7); TOTAL BILIRUBIN 0.2 mg/dL (0.2-1.0); TOTAL PROTEIN 9.1 g/dL (6.4-8.2)
[2020-04-15 15:01] LABS: PLT ESTIMATE INCREASED (ADEQUATE)
[2020-04-15] MEDS ORDERED: ACETAMINOPHEN 325 MG TABLET. PO PRN ×2 (16:45)
[2020-04-15] MEDS ORDERED: ALBUTEROL SULFATE 2.5 MG/3 ML NEBU. NEB PRN (16:45)
[2020-04-15] MEDS ORDERED: clonazePAM 0.5 MG TABLET PO PRN (16:45)
[2020-04-15] MEDS ORDERED: guaiFENesin ORAL 200 MG/10 ML LIQUID. PO PRN (16:45)
[2020-04-15] MEDS ORDERED: ACETAMINOPHEN 650 MG SUPP.RECT. PR PRN (16:45)
[2020-04-15] MEDS ORDERED: ONDANSETRON PF 4 MG/2 ML VIAL. IV PRN ×2 (16:45→17:00)
[2020-04-15] MEDS ORDERED: DOCUSATE SODIUM 100 MG CAPSULE. PO PRN ×2 (16:45)
[2020-04-15] MEDS: FUROSEMIDE 40 MG TABLET. PO SCH (17:00)
[2020-04-15] MEDS ORDERED: IV NORMAL SALINE 1000ML BAG 1,000 ML IV ONE (17:00)
[2020-04-15] MEDS: MORPHINE SULFATE 4 MG/ML VIAL. IV PRN ×3 (17:47→22:10)
[2020-04-15] MEDS: SUCRALFATE 1 GM TABLET. PO SCH ×2 (18:30→22:10)
--- NOTE | 2020-04-15 18:30 | NUR ---
Patient was brought up to room 412 by the ED staff, but I was not able to see the patient until after 1800 due to an emergency with another patient. Patient was oriented to her room and pain medication given. Her medications had been reviewed in the ED and Dr Vasquez had addressed them. Report later given to Brennon BRAVO who will do the admission.
[2020-04-15 19:15] VITALS: BP 132/92
[2020-04-15] MEDS: FAMOTIDINE 20 MG TABLET. PO SCH (20:36)
[2020-04-15] MEDS: risperiDONE 1 MG TABLET. PO SCH (20:36)
[2020-04-15] MEDS: levETIRAcetam 500 MG TABLET PO SCH (20:36)
[2020-04-15] MEDS: LACTOBACILLUS RHAMNOSUS GG 1 CAPSULE. PO SCH (20:36)
[2020-04-15] MEDS: ZOLPIDEM 5 MG TABLET. PO PRN (22:16)
--- NOTE | 2020-04-15 23:14 | PDOC1 ---
History and Physical Date of Admission Date of Admission 04/15/2020 Identification/Chief Complaint Chief Complaint my stomach hurts History of Present Illness History of Present Illness Patient is a 44 year old female with recent hospital stays for abdominal pain. She recently got discharged from the hospital due to a dehiscence of a Inderjit patch. She was in her usual state of health until 3 days prior to her admission when she refers having generalized abdominal pain,she describes as a sharp sensation with no radiation retrosternally , no radiation to the groin, no cva tenderness. Patient denies dietary trangression, no recent sick contacts, no travels outside the area. She denies fever but feels diaphoretic at times especially when the painful bouts occur. She denies measuring her temperature so it is unclear if she has had a temperature. she denies generalized malaise, she has not had changes in her taste buds or altered olfactory sensation She is being admitted at the request of the ER for pain. Of note is that the patient has had several visits to our hospital, this year alone he has been seen 10 times, there is a documented history of narcotic seeking. For details see below: Ms Gaona is a 44yo F w/ PMHx COPD, DVT s/p IVC filter, hypercholesterolemia, hypertension, kidney stones, myocardial infarction, peptic ulcer disease (perforated s/p inderjit patch), seizures, anxiety/depression, BP disorder, questionable history of lupus and morbid obesity who comes to the ED on 04/03/2020 after vomiting after eating a tilapia filet and notes worsening abdominal pain. She has requested hydrocodone by name, notes she doesn't think oxycodone works for her. She was discharged on 03/21, returned to the hospital due to abdominal pain and small separation of her incision on March 24- and CT of her abdomen pelvis done with abnormal findings and on 03/27 CT-guided drain placement was placed by IR. This drain is currently draining purulent thick fluid, cultures negative for bacterial or fungal growth. She was on micafungin, levaquin and vancomycin and was discharged on flagyl, levaquin, and doxycycline for 7 days to complete on 04/07/2020. Abdominal incision looks to be healing but has drainage. There is no redness or cellulitis around the abdominal incision area. Patient changes her dressings daily. Patient rating her pain a 10 out of 10 and states she has nausea and vomiting. Patient states this pain feels like the pain that she had before she had her surgery. Has a mild appetite currently. No complications passing her urine. Denies any rashes. No gross shortness of breath. Of note, she has had over 20 ED visits in the last year for various pain complaints. CT abdomen/pelvis overall improved from prior, resolution of the previously demonstrated gas-containing fluid collection along the anterior wall of the distal gastric antrum. WBC 11.6, Hb 10.3, Platelets 868, Na 136, K 4.2, BUN 9, Cr 1, glucose 89, Alkaline phosphatase 142, INR 1.2, Albumin 2.6. Admitted for further care. Seen by IR, patient educated on flushing her drain. She is feeling better, walking the halls. She is asking to increase the frequency of pain medication and we had a long discussion about potential drug-seeking behavior given that she is not exhibiting other signs of pain. Advised that her ED visit frequency is an indication she needs to work more on coping mechanisms, she agrees. Will transition to no more than 2 hydrocodone 5mg for the next 6 days. Consults: General surgery, IR: "Perctutaneous abscess, adjacent to stomach following perf gastric ulcer with inderjit patch, Drain placed 5.18.20. Now minimal purulent appearing drainage, estimate 10 cc daily. Pt has not been flushing drain or recording output at home. Would like to keep drain, with bid flushes until 5-10 cc serous output. Can return in 1 week for drain check and hopefully, pull." F/u with general surgery, IR, and the [facility] as well. Problem list: Nausea and vomiting - IV antiemetics, she is asking for PO already Abdominal pain - Perforated gastric ulcer status post repair of perforated ulcer with inderjit patch now with recurrent pain. Will cont antibiotics and pain control. Has h/o drug seeking behavior documented, will minimize IV pain medications, change to hydrocodone Leukocytosis - mild, will trend Diffuse peritonitis - improved from prior Exploratory laparotomy on 03/15/2020, repair of perforated ulcer with Inderjit patch. Antibiotic allergies, all cause swelling and trouble breathing. Transaminitis. History of lupus. Right basilar airspace disease, atelectasis versus pneumonia. There is a modera te size pleural effusion which is improving Normocytic Anemia with Hb 10.3 on admission Multiple abx allergies: PCN/Keflex/Bactrim - swelling and trouble breathing Bilateral nephrolithiasis, nonobstructive Schizophrenia/bipolar disorder Anxiety/depression History of Lupus History of CHF history of COPD Prior Smoker She still has her drainage in place, hopefully will be able to pull it out on this admission since no collections were noted. Please see below for report of CT of the abdomen. Past Medical History Cardiovascular: No pertinent hx Pulmonary: COPD, Pulmonary embolus GI: GERD, Gastritis, Peptic Ulcer disease, Other Heme/Onc: No pertinent hx Hepatobiliary: No pertinent hx Psych: No pertinent hx Rheumatologic: Other Endocrine: No pertinent hx Past Surgical History Past Surgical History: Appendectomy, Cholecystectomy, , Hysterectomy, Other Family History Family History: Alzheimer's Disease Social History ALCOHOL: rare Drugs: None Current Problem List Problem List Problems Medical Problems: (1) Intractable abdominal pain Status: Acute (2) Thrombocytopenia Status: Acute Current Medications Current Medications Current Medications Medications (Trade) Dose Ordered Sig/Tex Start Time Stop Time Status Last Admin Dose Admin Acetaminophen (Tylenol Supp) 650 mg PRN Q4HRS PRN 04/15/20 16:45 Acetaminophen (Tylenol) 650 mg PRN Q4HRS PRN 04/15/20 16:45 UNV Albuterol Sulfate (Ventolin Neb Soln) 2.5 mg PRN Q4HRS PRN 04/15/20 16:45 Clonazepam (KlonoPIN) 0.5 mg PRN Q6HRS PRN 04/15/20 16:45 Docusate Sodium (Colace) 100 mg PRN BID PRN 04/15/20 16:45 UNV Famotidine (Pepcid) 20 mg BID 04/15/20 21:00 04/15/20 20:36 20 MG Fluoxetine HCl (PROzac) 40 mg DAILY 04/16/20 09:00 Furosemide (Lasix) 40 mg [id number] 04/15/20 17:00 Guaifenesin (Robitussin) 200 mg PRN Q4HRS PRN 04/15/20 16:45 Lactobacillus Rhamnosus (Culturelle) 1 cap BID 04/15/20 21:00 04/15/20 20:36 1 CAP Levetiracetam (Keppra) 500 mg BID 04/15/20 21:00 04/15/20 20:36 500 MG Morphine Sulfate (Morphine Sulfate) 4 mg PRN Q2HR PRN 04/15/20 17:00 04/16/20 16:59 04/15/20 22:10 4 MG Ondansetron HCl (Zofran) 4 mg PRN Q8HRS PRN 04/15/20 17:00 04/16/20 16:59 Risperidone (RisperDAL) 5 mg BID 04/15/20 21:00 04/15/20 20:36 5 MG Sodium Chloride 1,000 ml @ 75 mls/hr 1X ONCE 04/15/20 17:00 04/16/20 06:19 04/15/20 20:37 75 MLS/HR Sucralfate (Carafate) 1 gm QIDPMEDS 04/15/20 18:00 04/15/20 22:10 1 GM Zolpidem Tartrate (Ambien) 5 mg PRN QHS PRN 04/15/20 16:45 04/15/20 22:16 5 MG Allergies Allergies Allergies Coded Allergies Type Severity Reaction Last Updated Verified Cephalexin Monohydrate Allergy Intermediate 03/18/20 Yes NSAIDS (Non-Steroidal Anti-Inflamma Allergy Intermediate 03/18/20 Yes Penicillins Allergy Intermediate 03/18/20 Yes iodine Allergy Intermediate 03/18/20 Yes lidocaine Allergy Intermediate 03/18/20 Yes prochlorperazine edisylate Allergy Intermediate 03/18/20 Yes prochlorperazine maleate Allergy Intermediate 03/18/20 Yes sulfamethoxazole Allergy Intermediate 03/18/20 Yes trimethoprim Allergy Intermediate 03/18/20 Yes ROS Review of System CONSTITUTIONAL: No fever or chills EYES: No recent changes SKIN: No rash or itching CARDIOVASCULAR: No chest pain, syncope, palpitations, or edema RESPIRATORY: No SOB or cough GASTROINTESTINAL: No nausea, vomiting or abdominal pain NEUROLOGICAL: No headaches or weakness ENDOCRINE: No cold or heat intolerance GENITOURINARY: No urgency or frequency of urination MUSCULOSKELETAL: No back pain or joint pain LYMPHATICS: No enlarged lymph nodes PSYCHIATRIC: No anxiety or depression Physical Exam Physical Exam GEN.: No apparent distress. Alert and oriented. HEENT: Head is normocephalic, atraumatic NECK: Supple. LUNGS: Clear to auscultation. HEART: RRR, S1, S2 present. Peripheral pulses intact ABDOMEN: Soft, nontender. Positive bowel sounds. EXTREMITIES: Without any cyanosis. NEUROLOGIC: Normal speech, normal tone PSYCHIATRIC: Normal affect, normal mood. SKIN: No ulcerations Vitals Vitals Vital Signs Date Time Temp Pulse Resp B/P (MAP) Pulse Ox O2 Delivery O2 Flow Rate FiO2 04/15/20 22:10 18 94 04/15/20 19:57 Room Air 04/15/20 19:15 97.7 98 132/92 (105) 97.7 Labs Labs Laboratory Tests Test 04/15/20 11:33 04/15/20 13:05 04/15/20 13:30 Urine Collection Type Unknown Urine Color Yellow Urine Clarity Clear Urine pH 5.5 (<5.0-8.0) Urine Specific [place] 1.025 (1.000-1.030) Urine Protein 30 mg/dL (NEG-TRACE) Urine Glucose (UA) Negative mg/dL (NEG) Urine Ketones (Stick) Negative mg/dL (NEG) Urine Blood Negative (NEG) Urine Nitrite Negative (NEG) Urine Bilirubin Negative (NEG) Urine Urobilinogen Dipstick 0.2 mg/dL (0.2 mg/dL) Urine Leukocyte Esterase Trace (NEG) Urine RBC 1-2 /HPF (0-2) Urine WBC 5-10 /HPF (0-4) Urine Squamous Epithelial Cells Many /LPF Urine Transitional Epithelial Cells Few /LPF Urine Bacteria Few /HPF (0-FEW) Urine Mucus Marked /LPF Lipase 82 U/L (73-393) Procalcitonin 0.15 ng/mL (0.00-0.10) White Blood Count 11.8 x10^3/uL (4.0-11.0) Red Blood Count 4.12 x10^6/uL (3.50-5.40) Hemoglobin 12.1 g/dL (12.0-15.5) Hematocrit 36.8 % (36.0-47.0) Mean Corpuscular Volume 89 fL (79-100) Mean Corpuscular Hemoglobin 29 pg (25-35) Mean Corpuscular Hemoglobin Concent 33 g/dL (31-37) Red Cell Distribution Width 14.6 % (11.5-14.5) Platelet Count 1061 x10^3/uL (140-400) Neutrophils (%) (Auto) 64 % (31-73) Lymphocytes (%) (Auto) 22 % (24-48) Monocytes (%) (Auto) 8 % (0-9) Eosinophils (%) (Auto) 6 % (0-3) Basophils (%) (Auto) 1 % (0-3) Neutrophils # (Auto) 7.5 x10^3/uL (1.8-7.7) Lymphocytes # (Auto) 2.6 x10^3/uL (1.0-4.8) Monocytes # (Auto) 0.9 x10^3/uL (0.0-1.1) Eosinophils # (Auto) 0.7 x10^3/uL (0.0-0.7) Basophils # (Auto) 0.1 x10^3/uL (0.0-0.2) Platelet Estimate Increased (ADEQUATE) Large Platelets Few Sodium Level 135 mmol/L (136-145) Potassium Level 4.4 mmol/L (3.5-5.1) Chloride Level 98 mmol/L (98-107) Carbon Dioxide Level 17 mmol/L (21-32) Anion Gap 20 (6-14) Blood Urea Nitrogen 24 mg/dL (7-20) Creatinine 1.4 mg/dL (0.6-1.0) Estimated GFR (Cockcroft-Gault) 40.8 BUN/Creatinine Ratio 17 (6-20) Glucose Level 106 mg/dL (70-99) Lactic Acid Level 0.9 mmol/L (0.4-2.0) Calcium Level 10.0 mg/dL (8.5-10.1) Total Bilirubin 0.2 mg/dL (0.2-1.0) Aspartate Amino Transf (AST/SGOT) 12 U/L (15-37) Alanine Aminotransferase (ALT/SGPT) 15 U/L (14-59) Alkaline Phosphatase 271 U/L (46-116) Total Protein 9.1 g/dL (6.4-8.2) Albumin 3.2 g/dL (3.4-5.0) Albumin/Globulin Ratio 0.5 (1.0-1.7) Laboratory Tests Test 04/15/20 11:33 04/15/20 13:05 04/15/20 13:30 Urine Collection Type Unknown Urine Color Yellow Urine Clarity Clear Urine pH 5.5 (<5.0-8.0) Urine Specific [place] 1.025 (1.000-1.030) Urine Protein 30 mg/dL (NEG-TRACE) Urine Glucose (UA) Negative mg/dL (NEG) Urine Ketones (Stick) Negative mg/dL (NEG) Urine Blood Negative (NEG) Urine Nitrite Negative (NEG) Urine Bilirubin Negative (NEG) Urine Urobilinogen Dipstick 0.2 mg/dL (0.2 mg/dL) Urine Leukocyte Esterase Trace (NEG) Urine RBC 1-2 /HPF (0-2) Urine WBC 5-10 /HPF (0-4) Urine Squamous Epithelial Cells Many /LPF Urine Transitional Epithelial Cells Few /LPF Urine Bacteria Few /HPF (0-FEW) Urine Mucus Marked /LPF Lipase 82 U/L (73-393) Procalcitonin 0.15 ng/mL (0.00-0.10) White Blood Count 11.8 x10^3/uL (4.0-11.0) Red Blood Count 4.12 x10^6/uL (3.50-5.40) Hemoglobin 12.1 g/dL (12.0-15.5) Hematocrit 36.8 % (36.0-47.0) Mean Corpuscular Volume 89 fL (79-100) Mean Corpuscular Hemoglobin 29 pg (25-35) Mean Corpuscular Hemoglobin Concent 33 g/dL (31-37) Red Cell Distribution Width 14.6 % (11.5-14.5) Platelet Count 1061 x10^3/uL (140-400) Neutrophils (%) (Auto) 64 % (31-73) Lymphocytes (%) (Auto) 22 % (24-48) Monocytes (%) (Auto) 8 % (0-9) Eosinophils (%) (Auto) 6 % (0-3) Basophils (%) (Auto) 1 % (0-3) Neutrophils # (Auto) 7.5 x10^3/uL (1.8-7.7) Lymphocytes # (Auto) 2.6 x10^3/uL (1.0-4.8) Monocytes # (Auto) 0.9 x10^3/uL (0.0-1.1) Eosinophils # (Auto) 0.7 x10^3/uL (0.0-0.7) Basophils # (Auto) 0.1 x10^3/uL (0.0-0.2) Platelet Estimate Increased (ADEQUATE) Large Platelets Few Sodium Level 135 mmol/L (136-145) Potassium Level 4.4 mmol/L (3.5-5.1) Chloride Level 98 mmol/L (98-107) Carbon Dioxide Level 17 mmol/L (21-32) Anion Gap 20 (6-14) Blood Urea Nitrogen 24 mg/dL (7-20) Creatinine 1.4 mg/dL (0.6-1.0) Estimated GFR (Cockcroft-Gault) 40.8 BUN/Creatinine Ratio 17 (6-20) Glucose Level 106 mg/dL (70-99) Lactic Acid Level 0.9 mmol/L (0.4-2.0) Calcium Level 10.0 mg/dL (8.5-10.1) Total Bilirubin 0.2 mg/dL (0.2-1.0) Aspartate Amino Transf (AST/SGOT) 12 U/L (15-37) Alanine Aminotransferase (ALT/SGPT) 15 U/L (14-59) Alkaline Phosphatase 271 U/L (46-116) Total Protein 9.1 g/dL (6.4-8.2) Albumin 3.2 g/dL (3.4-5.0) Albumin/Globulin Ratio 0.5 (1.0-1.7) Images Images IMAGING REPORT Signed PATIENT: TRACIE GAONA SACCOUNT: [id number] : 1975 LOCATION: ER AGE: 44 SEX: F EXAM STATUS: REG ER ORD. PHYSICIAN: BALA FAJARDO APRN REASON: abd pain-RECENT CYST DRAIN-DRAIN IN PLACE PROCEDURE: CT ABDOMEN PELVIS WO CONTRAST CT abdomen and pelvis without contrast PQRS statement: CT scans at this facility use dose reduction including either automated exposure control, iterative reconstructions, and /or weight based radiation dosing via mA and kV modification when appropriate to reduce radiation dose to as low as reasonably achievable. HISTORY: Abdominal pain. Recent cyst drain. COMPARISON: CT abdomen and pelvis April 03, 2020. Abdomen findings: Prominence of the bile ducts typical after cholecystectomy. Percutaneous drainage catheter the gallbladder fossa again demonstrated however there is decreased edema at the right upper quadrant surrounding the catheter as well as surrounding the gastric antrum, duodenum. There is mild persistent edema as well as gastric antrum wall thickening. No drainable fluid collection evident. Pancreas, spleen, adrenal glands, liver unremarkable. IVC filter. Bilateral nonobstructing renal calculi. No ureteral calculi. No hydronephrosis. No obstruction or inflammation the lower GI tract. Appendix not visualized may be surgically absent or obscured by surrounding small bowel loops. Pelvis findings: Hysterectomy and bilateral salpingohysterectomy. No bladder calculi. Rectum and bones are unremarkable. No pelvic fluid. IMPRESSION: 1. Cholecystectomy. Persistent percutaneous right upper quadrant pigtail drainage catheter at the gallbladder fossa. No fluid collection evident. There is decreased edema surrounding the catheter at the right upper quadrant since the prior exam. 2. Persistent but decreased gastric antrum wall thickening adjacent of the drainage catheter could be thickening of the wall from reactive edema versus gastritis or neoplastic thickening. This gastric wall thickening appears to be new compared to imaging prior to March 2020, favoring that it is inflammatory rather than neoplastic. 3. Small nonobstructing renal calculi. Electronically signed by: Guillermina Aguilar MD (04/15/2020 1:31 PM) [id number] DICTATED and SIGNED BY: GUILLERMINA AGUILAR MD DATE: 04/15/20 1331 VTE Prophylaxis Ordered VTE Prophylaxis Devices: No VTE Pharmacological Prophylaxi: Yes Assessment/Plan Assessment/Plan Abdominal pain unlikely surgicl abdomen in the abscence of rebound or peritoneal signs, imaging studies reviewed. Has h/o drug seeking behavior documented, will minimize IV pain medications, change to hydrocodone Leukocytosis - mild, will trend Thrmobocytosis, may be reactive given recent surgical procedures, will follow Diffuse peritonitis - improved from prior Exploratory laparotomy on 03/15/2020, repair of perforated ulcer with Inderjit patch. Antibiotic allergies, all cause swelling and trouble breathing. Transaminitis. History of lupus. Right basilar airspace disease, atelectasis versus pneumonia. There is a moderate size pleural effusion which is improving Normocytic Anemia with Hb 10.3 on admission Multiple abx allergies: PCN/Keflex/Bactrim - swelling and trouble breathing Bilateral nephrolithiasis, nonobstructive Schizophrenia/bipolar disorder Anxiety/depression History of Lupus History of CHF history of COPD Prior Smoker plan: resume home meds will minimize use of narcotics bowel regimen repeat labs in the am reassess in the am further recommendations based on clinical course DVT prophylaxis: heparin She still has her drainage in place, hopefully will be able to pull it out on this admission since no collections were noted.. Justicifation of Admission Dx: Justifications for Admission: Justification of Admission Dx: N/A ANSATASIA FITZPATRICK MD Apr 15, 2020 23:14
[2020-04-15 23:45] VITALS: BP 116/73
[2020-04-16] MEDS: MORPHINE SULFATE 4 MG/ML VIAL. IV/SQ PRN ×3 (02:57→08:45)
[2020-04-16 03:01] VITALS: BP 122/80
[2020-04-16] MEDS: HEPARIN for SUB-Q USE 5,000 UNIT/ML VIAL. SQ SCH ×2 (05:37→14:08)
[2020-04-16 06:52] LABS: BASO % 1 % (0-3); EOS # 0.6 x10^3/uL (0.0-0.7); EOS % 9 % (0-3); HEMATOCRIT 31.8 % (36.0-47.0); HEMOGLOBIN 10.6 g/dL (12.0-15.5); LYMPH # 1.9 x10^3/uL (1.0-4.8); LYMPH % 28 % (24-48); MEAN CORPUSCULAR HEMOGLOBIN 30 pg (25-35); MEAN CORPUSCULAR HGB CONC 33 g/dL (31-37); MEAN CORPUSCULAR VOLUME 90 fL (79-100); MONO # 0.6 x10^3/uL (0.0-1.1); MONO % 9 % (0-9); NEUT # 3.6 x10^3/uL (1.8-7.7); NEUT % 53 % (31-73); PLATELET COUNT 791 x10^3/uL (140-400); RED BLOOD COUNT 3.53 x10^6/uL (3.50-5.40); RED CELL DISTRIBUTION WIDTH 14.7 % (11.5-14.5); WHITE BLOOD COUNT 6.8 x10^3/uL (4.0-11.0)
[2020-04-16 07:00] VITALS: BP 105/78
[2020-04-16 07:10] LABS: CREATININE 0.9 mg/dL (0.6-1.0); POTASSIUM 4.2 mmol/L (3.5-5.1)
[2020-04-16] MEDS: IV NORMAL SALINE 1000ML BAG 1,000 ML IV SCH ×2 (08:49→18:00)
[2020-04-16] MEDS: levETIRAcetam 500 MG TABLET PO SCH ×2 (08:50→20:57)
[2020-04-16] MEDS: risperiDONE 1 MG TABLET. PO SCH ×2 (08:50→20:57)
[2020-04-16] MEDS: FAMOTIDINE 20 MG TABLET. PO SCH ×2 (08:50→20:57)
[2020-04-16] MEDS: FUROSEMIDE 40 MG TABLET. PO SCH ×4 (08:51→16:00)
[2020-04-16] MEDS: LACTOBACILLUS RHAMNOSUS GG 1 CAPSULE. PO SCH ×2 (08:51→20:57)
[2020-04-16] MEDS ORDERED: FLUoxetine HCL 20 MG CAPSULE PO SCH (09:00)
[2020-04-16] MEDS: SUCRALFATE 1 GM TABLET. PO SCH ×3 (10:46→17:58)
[2020-04-16] MEDS: MORPHINE SULFATE 4 MG/ML VIAL. IV PRN ×2 (10:46→12:54)
[2020-04-16 11:00] VITALS: BP 93/58
--- NOTE | 2020-04-16 11:17 | PDOC ---
PROGRESS NOTES History of Present Illness History of Present Illness VTE Prophylaxis Ordered VTE Prophylaxis Devices: No VTE Pharmacological Prophylaxi: Yes IMPRESSION Assessment/Plan Abdominal pain unlikely surgical abdomen in the abscence of rebound or peritoneal signs, imaging studies reviewed. , will minimize IV pain medications, change to hydrocodone Persistent percutaneous right upper quadrant pigtail drainage catheter at the gallbladder fossa. No fluid collection evident. There is decreased edema surrounding the catheter at the right upper quadrant since the prior exam. Leukocytosis - mild, will trend Thrmobocytosis, may be reactive given recent surgical procedures, will follow Diffuse peritonitis - improved from prior Exploratory laparotomy on 03/15/2020, repair of perforated ulcer with Inderjit patch. Antibiotic allergies, all cause swelling and trouble breathing. Transaminitis. History of lupus. Right basilar airspace disease, atelectasis versus pneumonia. There is a moderate size pleural effusion which is improving Normocytic Anemia with Hb 10.3 on admission Multiple abx allergies: PCN/Keflex/Bactrim - swelling and trouble breathing Bilateral nephrolithiasis, nonobstructive Schizophrenia/bipolar disorder Anxiety/depression History of Lupus History of CHF history of COPD Prior Smoker plan: ADMIT resume home meds will minimize use of narcotics bowel regimen repeat labs in the am reassess in the am further recommendations based on clinical course DVT prophylaxis: heparin She still has her drainage in place, CONSULT GEN SURGERY D/W RN Justicifation of Admission Dx: Justicifation of Admission Dx: Justifications for Admission: Justification of Admission Dx: N/A Vitals Vitals Vital Signs Date Time Temp Pulse Resp B/P (MAP) Pulse Ox O2 Delivery O2 Flow Rate FiO2 04/16/20 11:00 98.3 95 20 93/58 (70) 93 Room Air 98.3 Physical Exam Physical Exam Physical Exam Physical Exam GEN.: No apparent distress. Alert and oriented. HEENT: Head is normocephalic, atraumatic NECK: Supple. LUNGS: Clear to auscultation. HEART: RRR, S1, S2 present. Peripheral pulses intact ABDOMEN: Soft, nontender. Positive bowel sounds. EXTREMITIES: Without any cyanosis. NEUROLOGIC: Normal speech, normal tone PSYCHIATRIC: Normal affect, normal mood. SKIN: No ulcerations General: Alert, Oriented X3, Cooperative, No acute distress Heart: Regular rate Lungs: Clear Extremities: No cyanosis, No edema Skin: No significant lesion Labs LABS CT abdomen and pelvis without contrast PQRS statement: CT scans at this facility use dose reduction including either automated exposure control, iterative reconstructions, and /or weight based radiation dosing via mA and kV modification when appropriate to reduce radiation dose to as low as reasonably achievable. HISTORY: Abdominal pain. Recent cyst drain. COMPARISON: CT abdomen and pelvis April 03, 2020. Abdomen findings: Prominence of the bile ducts typical after cholecystectomy. Percutaneous drainage catheter the gallbladder fossa again demonstrated however there is decreased edema at the right upper quadrant surrounding the catheter as well as surrounding the gastric antrum, duodenum. There is mild persistent edema as well as gastric antrum wall thickening. No drainable fluid collection evident. Pancreas, spleen, adrenal glands, liver unremarkable. IVC filter. Bilateral nonobstructing renal calculi. No ureteral calculi. No hydronephrosis. No obstruction or inflammation the lower GI tract. Appendix not visualized may be surgically absent or obscured by surrounding small bowel loops. Pelvis findings: Hysterectomy and bilateral salpingohysterectomy. No bladder calculi. Rectum and bones are unremarkable. No pelvic fluid. IMPRESSION: 1. Cholecystectomy. Persistent percutaneous right upper quadrant pigtail drainage catheter at the gallbladder fossa. No fluid collection evident. There is decreased edema surrounding the catheter at the right upper quadrant since the prior exam. 2. Persistent but decreased gastric antrum wall thickening adjacent of the drainage catheter could be thickening of the wall from reactive edema versus gastritis or neoplastic thickening. This gastric wall thickening appears to be new compared to imaging prior to March 2020, favoring that it is inflammatory rather than neoplastic. 3. Small nonobstructing renal calculi. Electronically signed by: Guillermina Aguilar MD (04/15/2020 1:31 PM) [id number] DICTATED and SIGNED BY: GUILLERMINA AGUILAR MD DATE: 04/15/20 1331 Laboratory Tests Test 04/15/20 11:33 04/15/20 13:05 04/15/20 13:30 04/16/20 05:09 Urine Collection Type Unknown Urine Color Yellow Urine Clarity Clear Urine pH 5.5 (<5.0-8.0) Urine Specific [place] 1.025 (1.000-1.030) Urine Protein 30 mg/dL (NEG-TRACE) Urine Glucose (UA) Negative mg/dL (NEG) Urine Ketones (Stick) Negative mg/dL (NEG) Urine Blood Negative (NEG) Urine Nitrite Negative (NEG) Urine Bilirubin Negative (NEG) Urine Urobilinogen Dipstick 0.2 mg/dL (0.2 mg/dL) Urine Leukocyte Esterase Trace (NEG) Urine RBC 1-2 /HPF (0-2) Urine WBC 5-10 /HPF (0-4) Urine Squamous Epithelial Cells Many /LPF Urine Transitional Epithelial Cells Few /LPF Urine Bacteria Few /HPF (0-FEW) Urine Mucus Marked /LPF Lipase 82 U/L (73-393) Procalcitonin 0.15 ng/mL (0.00-0.10) White Blood Count 11.8 x10^3/uL (4.0-11.0) 6.8 x10^3/uL (4.0-11.0) Red Blood Count 4.12 x10^6/uL (3.50-5.40) 3.53 x10^6/uL (3.50-5.40) Hemoglobin 12.1 g/dL (12.0-15.5) 10.6 g/dL (12.0-15.5) Hematocrit 36.8 % (36.0-47.0) 31.8 % (36.0-47.0) Mean Corpuscular Volume 89 fL (79-100) 90 fL (79-100) Mean Corpuscular Hemoglobin 29 pg (25-35) 30 pg (25-35) Mean Corpuscular Hemoglobin Concent 33 g/dL (31-37) 33 g/dL (31-37) Red Cell Distribution Width 14.6 % (11.5-14.5) 14.7 % (11.5-14.5) Platelet Count 1061 x10^3/uL (140-400) 791 x10^3/uL (140-400) Neutrophils (%) (Auto) 64 % (31-73) 53 % (31-73) Lymphocytes (%) (Auto) 22 % (24-48) 28 % (24-48) Monocytes (%) (Auto) 8 % (0-9) 9 % (0-9) Eosinophils (%) (Auto) 6 % (0-3) 9 % (0-3) Basophils (%) (Auto) 1 % (0-3) 1 % (0-3) Neutrophils # (Auto) 7.5 x10^3/uL (1.8-7.7) 3.6 x10^3/uL (1.8-7.7) Lymphocytes # (Auto) 2.6 x10^3/uL (1.0-4.8) 1.9 x10^3/uL (1.0-4.8) Monocytes # (Auto) 0.9 x10^3/uL (0.0-1.1) 0.6 x10^3/uL (0.0-1.1) Eosinophils # (Auto) 0.7 x10^3/uL (0.0-0.7) 0.6 x10^3/uL (0.0-0.7) Basophils # (Auto) 0.1 x10^3/uL (0.0-0.2) 0.0 x10^3/uL (0.0-0.2) Platelet Estimate Increased (ADEQUATE) Large Platelets Few Sodium Level 135 mmol/L (136-145) 136 mmol/L (136-145) Potassium Level 4.4 mmol/L (3.5-5.1) 4.2 mmol/L (3.5-5.1) Chloride Level 98 mmol/L (98-107) 102 mmol/L (98-107) Carbon Dioxide Level 17 mmol/L (21-32) 23 mmol/L (21-32) Anion Gap 20 (6-14) 11 (6-14) Blood Urea Nitrogen 24 mg/dL (7-20) 16 mg/dL (7-20) Creatinine 1.4 mg/dL (0.6-1.0) 0.9 mg/dL (0.6-1.0) Estimated GFR (Cockcroft-Gault) 40.8 68.0 BUN/Creatinine Ratio 17 (6-20) Glucose Level 106 mg/dL (70-99) 104 mg/dL (70-99) Lactic Acid Level 0.9 mmol/L (0.4-2.0) Calcium Level 10.0 mg/dL (8.5-10.1) 9.0 mg/dL (8.5-10.1) Total Bilirubin 0.2 mg/dL (0.2-1.0) Aspartate Amino Transf (AST/SGOT) 12 U/L (15-37) Alanine Aminotransferase (ALT/SGPT) 15 U/L (14-59) Alkaline Phosphatase 271 U/L (46-116) Total Protein 9.1 g/dL (6.4-8.2) Albumin 3.2 g/dL (3.4-5.0) Albumin/Globulin Ratio 0.5 (1.0-1.7) Assessment and Plan Assessmemt and Plan Problems Medical Problems: (1) Intractable abdominal pain Status: Acute (2) Thrombocytopenia Status: Acute Comment Review of Relevant I have reviewed the following items sasha (where applicable) has been applied. Labs Laboratory Tests Test 04/15/20 11:33 04/15/20 13:05 04/15/20 13:30 04/16/20 05:09 Urine Collection Type Unknown Urine Color Yellow Urine Clarity Clear Urine pH 5.5 (<5.0-8.0) Urine Specific [place] 1.025 (1.000-1.030) Urine Protein 30 mg/dL (NEG-TRACE) Urine Glucose (UA) Negative mg/dL (NEG) Urine Ketones (Stick) Negative mg/dL (NEG) Urine Blood Negative (NEG) Urine Nitrite Negative (NEG) Urine Bilirubin Negative (NEG) Urine Urobilinogen Dipstick 0.2 mg/dL (0.2 mg/dL) Urine Leukocyte Esterase Trace (NEG) Urine RBC 1-2 /HPF (0-2) Urine WBC 5-10 /HPF (0-4) Urine Squamous Epithelial Cells Many /LPF Urine Transitional Epithelial Cells Few /LPF Urine Bacteria Few /HPF (0-FEW) Urine Mucus Marked /LPF Lipase 82 U/L (73-393) Procalcitonin 0.15 ng/mL (0.00-0.10) White Blood Count 11.8 x10^3/uL (4.0-11.0) 6.8 x10^3/uL (4.0-11.0) Red Blood Count 4.12 x10^6/uL (3.50-5.40) 3.53 x10^6/uL (3.50-5.40) Hemoglobin 12.1 g/dL (12.0-15.5) 10.6 g/dL (12.0-15.5) Hematocrit 36.8 % (36.0-47.0) 31.8 % (36.0-47.0) Mean Corpuscular Volume 89 fL (79-100) 90 fL (79-100) Mean Corpuscular Hemoglobin 29 pg (25-35) 30 pg (25-35) Mean Corpuscular Hemoglobin Concent 33 g/dL (31-37) 33 g/dL (31-37) Red Cell Distribution Width 14.6 % (11.5-14.5) 14.7 % (11.5-14.5) Platelet Count 1061 x10^3/uL (140-400) 791 x10^3/uL (140-400) Neutrophils (%) (Auto) 64 % (31-73) 53 % (31-73) Lymphocytes (%) (Auto) 22 % (24-48) 28 % (24-48) Monocytes (%) (Auto) 8 % (0-9) 9 % (0-9) Eosinophils (%) (Auto) 6 % (0-3) 9 % (0-3) Basophils (%) (Auto) 1 % (0-3) 1 % (0-3) Neutrophils # (Auto) 7.5 x10^3/uL (1.8-7.7) 3.6 x10^3/uL (1.8-7.7) Lymphocytes # (Auto) 2.6 x10^3/uL (1.0-4.8) 1.9 x10^3/uL (1.0-4.8) Monocytes # (Auto) 0.9 x10^3/uL (0.0-1.1) 0.6 x10^3/uL (0.0-1.1) Eosinophils # (Auto) 0.7 x10^3/uL (0.0-0.7) 0.6 x10^3/uL (0.0-0.7) Basophils # (Auto) 0.1 x10^3/uL (0.0-0.2) 0.0 x10^3/uL (0.0-0.2) Platelet Estimate Increased (ADEQUATE) Large Platelets Few Sodium Level 135 mmol/L (136-145) 136 mmol/L (136-145) Potassium Level 4.4 mmol/L (3.5-5.1) 4.2 mmol/L (3.5-5.1) Chloride Level 98 mmol/L (98-107) 102 mmol/L (98-107) Carbon Dioxide Level 17 mmol/L (21-32) 23 mmol/L (21-32) Anion Gap 20 (6-14) 11 (6-14) Blood Urea Nitrogen 24 mg/dL (7-20) 16 mg/dL (7-20) Creatinine 1.4 mg/dL (0.6-1.0) 0.9 mg/dL (0.6-1.0) Estimated GFR (Cockcroft-Gault) 40.8 68.0 BUN/Creatinine Ratio 17 (6-20) Glucose Level 106 mg/dL (70-99) 104 mg/dL (70-99) Lactic Acid Level 0.9 mmol/L (0.4-2.0) Calcium Level 10.0 mg/dL (8.5-10.1) 9.0 mg/dL (8.5-10.1) Total Bilirubin 0.2 mg/dL (0.2-1.0) Aspartate Amino Transf (AST/SGOT) 12 U/L (15-37) Alanine Aminotransferase (ALT/SGPT) 15 U/L (14-59) Alkaline Phosphatase 271 U/L (46-116) Total Protein 9.1 g/dL (6.4-8.2) Albumin 3.2 g/dL (3.4-5.0) Albumin/Globulin Ratio 0.5 (1.0-1.7) Laboratory Tests Test 04/15/20 11:33 04/15/20 13:05 04/15/20 13:30 04/16/20 05:09 Urine Collection Type Unknown Urine Color Yellow Urine Clarity Clear Urine pH 5.5 (<5.0-8.0) Urine Specific [place] 1.025 (1.000-1.030) Urine Protein 30 mg/dL (NEG-TRACE) Urine Glucose (UA) Negative mg/dL (NEG) Urine Ketones (Stick) Negative mg/dL (NEG) Urine Blood Negative (NEG) Urine Nitrite Negative (NEG) Urine Bilirubin Negative (NEG) Urine Urobilinogen Dipstick 0.2 mg/dL (0.2 mg/dL) Urine Leukocyte Esterase Trace (NEG) Urine RBC 1-2 /HPF (0-2) Urine WBC 5-10 /HPF (0-4) Urine Squamous Epithelial Cells Many /LPF Urine Transitional Epithelial Cells Few /LPF Urine Bacteria Few /HPF (0-FEW) Urine Mucus Marked /LPF Lipase 82 U/L (73-393) Procalcitonin 0.15 ng/mL (0.00-0.10) White Blood Count 11.8 x10^3/uL (4.0-11.0) 6.8 x10^3/uL (4.0-11.0) Red Blood Count 4.12 x10^6/uL (3.50-5.40) 3.53 x10^6/uL (3.50-5.40) Hemoglobin 12.1 g/dL (12.0-15.5) 10.6 g/dL (12.0-15.5) Hematocrit 36.8 % (36.0-47.0) 31.8 % (36.0-47.0) Mean Corpuscular Volume 89 fL (79-100) 90 fL (79-100) Mean Corpuscular Hemoglobin 29 pg (25-35) 30 pg (25-35) Mean Corpuscular Hemoglobin Concent 33 g/dL (31-37) 33 g/dL (31-37) Red Cell Distribution Width 14.6 % (11.5-14.5) 14.7 % (11.5-14.5) Platelet Count 1061 x10^3/uL (140-400) 791 x10^3/uL (140-400) Neutrophils (%) (Auto) 64 % (31-73) 53 % (31-73) Lymphocytes (%) (Auto) 22 % (24-48) 28 % (24-48) Monocytes (%) (Auto) 8 % (0-9) 9 % (0-9) Eosinophils (%) (Auto) 6 % (0-3) 9 % (0-3) Basophils (%) (Auto) 1 % (0-3) 1 % (0-3) Neutrophils # (Auto) 7.5 x10^3/uL (1.8-7.7) 3.6 x10^3/uL (1.8-7.7) Lymphocytes # (Auto) 2.6 x10^3/uL (1.0-4.8) 1.9 x10^3/uL (1.0-4.8) Monocytes # (Auto) 0.9 x10^3/uL (0.0-1.1) 0.6 x10^3/uL (0.0-1.1) Eosinophils # (Auto) 0.7 x10^3/uL (0.0-0.7) 0.6 x10^3/uL (0.0-0.7) Basophils # (Auto) 0.1 x10^3/uL (0.0-0.2) 0.0 x10^3/uL (0.0-0.2) Platelet Estimate Increased (ADEQUATE) Large Platelets Few Sodium Level 135 mmol/L (136-145) 136 mmol/L (136-145) Potassium Level 4.4 mmol/L (3.5-5.1) 4.2 mmol/L (3.5-5.1) Chloride Level 98 mmol/L (98-107) 102 mmol/L (98-107) Carbon Dioxide Level 17 mmol/L (21-32) 23 mmol/L (21-32) Anion Gap 20 (6-14) 11 (6-14) Blood Urea Nitrogen 24 mg/dL (7-20) 16 mg/dL (7-20) Creatinine 1.4 mg/dL (0.6-1.0) 0.9 mg/dL (0.6-1.0) Estimated GFR (Cockcroft-Gault) 40.8 68.0 BUN/Creatinine Ratio 17 (6-20) Glucose Level 106 mg/dL (70-99) 104 mg/dL (70-99) Lactic Acid Level 0.9 mmol/L (0.4-2.0) Calcium Level 10.0 mg/dL (8.5-10.1) 9.0 mg/dL (8.5-10.1) Total Bilirubin 0.2 mg/dL (0.2-1.0) Aspartate Amino Transf (AST/SGOT) 12 U/L (15-37) Alanine Aminotransferase (ALT/SGPT) 15 U/L (14-59) Alkaline Phosphatase 271 U/L (46-116) Total Protein 9.1 g/dL (6.4-8.2) Albumin 3.2 g/dL (3.4-5.0) Albumin/Globulin Ratio 0.5 (1.0-1.7) Microbiology 04/15/20 Urine Culture - Final, Complete Medications Current Medications Ondansetron HCl (Zofran) 4 mg 1X ONCE IVP Last administered on 04/15/20at 12:43; Start 04/15/20 at 12:15; Stop 04/15/20 at 12:16; Status DC Morphine Sulfate (Morphine Sulfate) 4 mg 1X ONCE IV Last administered on 04/15/20at 12:43; Start 04/15/20 at 12:45; Stop 04/15/20 at 12:52; Status DC Sodium Chloride 1,920 ml @ 1,920 mls/hr Q1H IV Last administered on 04/15/20at 12:43; Start 04/15/20 at 12:35; Stop 04/15/20 at 12:51; Status DC Morphine Sulfate (Morphine Sulfate) 4 mg PRN Q15MIN PRN IV/SQ PAIN GREATER THAN 3/10 Last administered on 04/15/20at 15:26; Start 04/15/20 at 12:45; Stop 04/15/20 at 23:13; Status DC Sodium Chloride 1,000 ml @ 1,920 mls/hr Q32M IV Last administered on 04/15/20at 20:40; Start 04/15/20 at 12:51; Stop 04/15/20 at 13:36; Status DC Ondansetron HCl (Zofran) 4 mg 1X ONCE IVP Last administered on 04/15/20at 15:22; Start 04/15/20 at 15:30; Stop 04/15/20 at 15:31; Status DC Sodium Chloride 1,000 ml @ 100 mls/hr Q10H IV Last administered on 04/16/20at 08:49; Start 04/15/20 at 16:32 Ondansetron HCl (Zofran) 4 mg PRN Q4HRS PRN IV NAUSEA/VOMITING; Start 04/15/20 at 16:45 Zolpidem Tartrate (Ambien) 5 mg PRN QHS PRN PO INSOMNIA Last administered on 04/15/20at 22:16; Start 04/15/20 at 16:45 Acetaminophen (Tylenol) 650 mg PRN Q4HRS PRN PO TEMP OVER 100.4F OR MILD PAIN; Start 04/15/20 at 16:45 Acetaminophen (Tylenol Supp) 650 mg PRN Q4HRS PRN VT TEMP OVER 100.4F OR MILD PAIN; Start 04/15/20 at 16:45 Docusate Sodium (Colace) 100 mg PRN BID PRN PO HARD STOOLS; Start 04/15/20 at 16:45 Albuterol Sulfate (Ventolin Neb Soln) 2.5 mg PRN Q4HRS PRN NEB SHORTNESS OF BREATH; Start 04/15/20 at 16:45 Guaifenesin (Robitussin) 200 mg PRN Q4HRS PRN PO COUGH; Start 04/15/20 at 16:45 Acetaminophen (Tylenol) 650 mg PRN Q4HRS PRN PO TEMP OVER 100.4F OR MILD PAIN; Start 04/15/20 at 16:45; Status UNV Docusate Sodium (Colace) 100 mg PRN BID PRN PO HARD STOOLS; Start 04/15/20 at 16:45; Status UNV Famotidine (Pepcid) 20 mg BID PO Last administered on 04/16/20at 08:50; Start 04/15/20 at 21:00 Furosemide (Lasix) 40 mg [id number] PO Last administered on 04/16/20at 10:47; Start 04/15/20 at 17:00 Lactobacillus Rhamnosus (Culturelle) 1 cap BID PO Last administered on 04/16/20at 08:51; Start 04/15/20 at 21:00 Levetiracetam (Keppra) 500 mg BID PO Last administered on 04/16/20at 08:50; Start 04/15/20 at 21:00 Sucralfate (Carafate) 1 gm QIDPMEDS PO Last administered on 04/16/20at 10:46; Start 04/15/20 at 18:00 Clonazepam (KlonoPIN) 0.5 mg PRN Q6HRS PRN PO ANXIETY / AGITATION; Start 04/15/20 at 16:45 Fluoxetine HCl (PROzac) 40 mg DAILY PO Last administered on 04/16/20at 08:50; Start 04/16/20 at 09:00 Risperidone (RisperDAL) 5 mg BID PO Last administered on 04/16/20at 08:50; Start 04/15/20 at 21:00 Ondansetron HCl (Zofran) 4 mg PRN Q8HRS PRN IV NAUSEA/VOMITING; Start 04/15/20 at 17:00; Stop 04/16/20 at 16:59 Morphine Sulfate (Morphine Sulfate) 4 mg PRN Q2HR PRN IV PAIN Last administered on 04/15/20at 22:10; Start 04/15/20 at 17:00; Stop 04/15/20 at 23:14; Status DC Sodium Chloride 1,000 ml @ 75 mls/hr 1X ONCE IV Last administered on 04/15/20at 20:37; Start 04/15/20 at 17:00; Stop 04/16/20 at 06:19; Status DC Morphine Sulfate (Morphine Sulfate) 4 mg PRN Q2HRS PRN IV/SQ PAIN GREATER THAN 7/10 Last administered on 04/16/20at 08:45; Start 04/15/20 at 23:15; Stop 04/16/20 at 10:10; Status DC Heparin Sodium (Porcine) (Heparin Sodium) 5,000 unit Q8HRS SQ Last administered on 04/16/20at 05:37; Start 04/16/20 at 06:00 Morphine Sulfate (Morphine Sulfate) 4 mg PRN Q2HR PRN IV MODERATE TO SEVERE PAIN Last administered on 04/16/20at 10:46; Start 04/16/20 at 10:15 Active Scripts Active Hydrocodone-Apap 5-325 (Hydrocodone Bit/Acetaminophen) 1 Tab Tablet 1 Tab PO PRN BID PRN 6 Days Doxycycline Monohydrate 100 Mg Capsule 1 Cap PO BID 7 Days Culturelle (Lactobacillus Rhamnosus Gg) 1 Each Cap.sprink 1 Cap PO BID 30 Days Dok (Docusate Sodium) 100 Mg Capsule 100 Mg PO PRN BID PRN 30 Days Tylenol (Acetaminophen) 325 Mg Tablet 650 Mg PO PRN Q4HRS PRN 30 Days Pepcid (Famotidine) 20 Mg Tablet 20 Mg PO BID Zofran Odt (Ondansetron) 4 Mg Tab.rapdis 1 Tab SL Q8HRS PRN Reported Flagyl (Metronidazole) 500 Mg Tablet 1 Tab PO Q6HRS Levaquin (Levofloxacin) 500 Mg Tablet 1 Tab PO DAILY 7 Days Keppra (Levetiracetam) 500 Mg Tablet 500 Mg PO BID Carafate (Sucralfate) 1 Gm Tablet 1 Tab PO QID 30 Days Lasix (Furosemide) 40 Mg Tablet 40 Mg PO BID Clonazepam 1 Mg Tablet 0.5 Mg PO PRN Q6HRS PRN Risperdal (Risperidone) 4 Mg Tablet 5 Mg PO BID Prozac (Fluoxetine Hcl) 40 Mg Capsule 1 Cap PO DAILY Vitals/I & O Vital Sign - Last 24 Hours 04/15/20 04/15/20 04/15/20 04/15/20 11:36 12:39 13:23 13:24 Temp 98.7 98.7 Pulse 122 112 111 Resp 16 18 18 20 B/P (MAP) 144/90 (108) 145/98 (114) 132/92 (105) Pulse Ox 98 98 98 94 O2 Delivery Room Air Room Air Room Air Room Air 04/15/20 04/15/20 04/15/20 04/15/20 14:23 15:23 16:23 17:47 Pulse 106 107 99 Resp 18 18 18 22 B/P (MAP) 122/92 (102) 144/60 (88) 119/64 (82) Pulse Ox 96 96 98 O2 Delivery Room Air Room Air Room Air Room Air 04/15/20 04/15/20 04/15/20 04/15/20 18:17 19:15 19:27 19:57 Temp 97.7 97.7 Pulse 98 Resp 20 18 20 20 B/P (MAP) 132/92 (105) Pulse Ox 94 O2 Delivery Room Air Room Air Room Air Room Air 04/15/20 04/15/20 04/15/20 04/16/20 22:10 22:48 23:45 02:57 Temp 97.6 97.6 Pulse 101 Resp 18 18 18 18 B/P (MAP) 116/73 (87) Pulse Ox 94 94 92 O2 Delivery Room Air Room Air 04/16/20 04/16/20 04/16/20 04/16/20 03:01 03:40 05:34 06:14 Temp 97.9 97.9 Pulse 103 Resp 18 17 18 18 B/P (MAP) 122/80 (94) Pulse Ox 94 94 94 94 O2 Delivery Room Air Room Air Room Air Room Air 04/16/20 04/16/20 04/16/20 04/16/20 07:00 08:00 08:45 10:46 Temp 99.0 99.0 Pulse 102 Resp 18 B/P (MAP) 105/78 (87) Pulse Ox 94 O2 Delivery Room Air Room Air Room Air Room Air 04/16/20 11:00 Temp 98.3 98.3 Pulse 95 Resp 20 B/P (MAP) 93/58 (70) Pulse Ox 93 O2 Delivery Room Air Intake and Output 04/15/20 04/15/20 04/16/20 15:00 23:00 07:00 Intake Total 1000 ml 480 ml 420 ml Balance 1000 ml 480 ml 420 ml BETZY BORDEN MD Apr 16, 2020 11:16
[2020-04-16] MEDS: HYDROcodone/APAP 7.5/325MG 1 TAB TABLET PO PRN ×2 (14:03→20:06)
[2020-04-16 15:00] VITALS: BP 104/60
[2020-04-16 19:00] VITALS: BP 113/71
--- NOTE | 2020-04-16 19:26 | PDOC ---
PROGRESS NOTES Subjective Subjective Pt known to surgical service, full consult to follow; Pt had recent repair of perforated peptic ulcer, returned with continued pain in the upper mid abdomen and nausea/vomiting. She is currently more comfortable but notes pain in the upper abdomen. Objective Objective Vital Signs Date Time Temp Pulse Resp B/P (MAP) Pulse Ox O2 Delivery O2 Flow Rate FiO2 04/16/20 15:03 Room Air 04/16/20 15:00 98.2 86 18 104/60 (75) 94 98.2 Intake and Output 04/16/20 07:00 Intake Total 1900 ml Balance 1900 ml Intake Oral 900 ml IV Total 1000 ml # Voids 1 Physical Exam Physical Exam alert, oriented, abdomen soft, healing vertical incision, no erythema, tender at incision, RUQ drain present Assessment Assessment Problems Medical Problems: (1) Intractable abdominal pain Status: Acute (2) Thrombocytopenia Status: Acute Plan Plan of Care CT and labs reviewed; recommend pain control, hydration. CT shows no sign of abscess or perforation. Will review with Dr Landers. Comment Review of Relevant I have reviewed the following items sasha (where applicable) has been applied. Labs Laboratory Tests Test 04/15/20 11:33 04/15/20 13:05 04/15/20 13:30 04/16/20 05:09 Urine Collection Type Unknown Urine Color Yellow Urine Clarity Clear Urine pH 5.5 (<5.0-8.0) Urine Specific [place] 1.025 (1.000-1.030) Urine Protein 30 mg/dL (NEG-TRACE) Urine Glucose (UA) Negative mg/dL (NEG) Urine Ketones (Stick) Negative mg/dL (NEG) Urine Blood Negative (NEG) Urine Nitrite Negative (NEG) Urine Bilirubin Negative (NEG) Urine Urobilinogen Dipstick 0.2 mg/dL (0.2 mg/dL) Urine Leukocyte Esterase Trace (NEG) Urine RBC 1-2 /HPF (0-2) Urine WBC 5-10 /HPF (0-4) Urine Squamous Epithelial Cells Many /LPF Urine Transitional Epithelial Cells Few /LPF Urine Bacteria Few /HPF (0-FEW) Urine Mucus Marked /LPF Lipase 82 U/L (73-393) Procalcitonin 0.15 ng/mL (0.00-0.10) White Blood Count 11.8 x10^3/uL (4.0-11.0) 6.8 x10^3/uL (4.0-11.0) Red Blood Count 4.12 x10^6/uL (3.50-5.40) 3.53 x10^6/uL (3.50-5.40) Hemoglobin 12.1 g/dL (12.0-15.5) 10.6 g/dL (12.0-15.5) Hematocrit 36.8 % (36.0-47.0) 31.8 % (36.0-47.0) Mean Corpuscular Volume 89 fL (79-100) 90 fL (79-100) Mean Corpuscular Hemoglobin 29 pg (25-35) 30 pg (25-35) Mean Corpuscular Hemoglobin Concent 33 g/dL (31-37) 33 g/dL (31-37) Red Cell Distribution Width 14.6 % (11.5-14.5) 14.7 % (11.5-14.5) Platelet Count 1061 x10^3/uL (140-400) 791 x10^3/uL (140-400) Neutrophils (%) (Auto) 64 % (31-73) 53 % (31-73) Lymphocytes (%) (Auto) 22 % (24-48) 28 % (24-48) Monocytes (%) (Auto) 8 % (0-9) 9 % (0-9) Eosinophils (%) (Auto) 6 % (0-3) 9 % (0-3) Basophils (%) (Auto) 1 % (0-3) 1 % (0-3) Neutrophils # (Auto) 7.5 x10^3/uL (1.8-7.7) 3.6 x10^3/uL (1.8-7.7) Lymphocytes # (Auto) 2.6 x10^3/uL (1.0-4.8) 1.9 x10^3/uL (1.0-4.8) Monocytes # (Auto) 0.9 x10^3/uL (0.0-1.1) 0.6 x10^3/uL (0.0-1.1) Eosinophils # (Auto) 0.7 x10^3/uL (0.0-0.7) 0.6 x10^3/uL (0.0-0.7) Basophils # (Auto) 0.1 x10^3/uL (0.0-0.2) 0.0 x10^3/uL (0.0-0.2) Platelet Estimate Increased (ADEQUATE) Large Platelets Few Sodium Level 135 mmol/L (136-145) 136 mmol/L (136-145) Potassium Level 4.4 mmol/L (3.5-5.1) 4.2 mmol/L (3.5-5.1) Chloride Level 98 mmol/L (98-107) 102 mmol/L (98-107) Carbon Dioxide Level 17 mmol/L (21-32) 23 mmol/L (21-32) Anion Gap 20 (6-14) 11 (6-14) Blood Urea Nitrogen 24 mg/dL (7-20) 16 mg/dL (7-20) Creatinine 1.4 mg/dL (0.6-1.0) 0.9 mg/dL (0.6-1.0) Estimated GFR (Cockcroft-Gault) 40.8 68.0 BUN/Creatinine Ratio 17 (6-20) Glucose Level 106 mg/dL (70-99) 104 mg/dL (70-99) Lactic Acid Level 0.9 mmol/L (0.4-2.0) Calcium Level 10.0 mg/dL (8.5-10.1) 9.0 mg/dL (8.5-10.1) Total Bilirubin 0.2 mg/dL (0.2-1.0) Aspartate Amino Transf (AST/SGOT) 12 U/L (15-37) Alanine Aminotransferase (ALT/SGPT) 15 U/L (14-59) Alkaline Phosphatase 271 U/L (46-116) Total Protein 9.1 g/dL (6.4-8.2) Albumin 3.2 g/dL (3.4-5.0) Albumin/Globulin Ratio 0.5 (1.0-1.7) Laboratory Tests Test 04/16/20 05:09 White Blood Count 6.8 x10^3/uL (4.0-11.0) Red Blood Count 3.53 x10^6/uL (3.50-5.40) Hemoglobin 10.6 g/dL (12.0-15.5) Hematocrit 31.8 % (36.0-47.0) Mean Corpuscular Volume 90 fL (79-100) Mean Corpuscular Hemoglobin 30 pg (25-35) Mean Corpuscular Hemoglobin Concent 33 g/dL (31-37) Red Cell Distribution Width 14.7 % (11.5-14.5) Platelet Count 791 x10^3/uL (140-400) Neutrophils (%) (Auto) 53 % (31-73) Lymphocytes (%) (Auto) 28 % (24-48) Monocytes (%) (Auto) 9 % (0-9) Eosinophils (%) (Auto) 9 % (0-3) Basophils (%) (Auto) 1 % (0-3) Neutrophils # (Auto) 3.6 x10^3/uL (1.8-7.7) Lymphocytes # (Auto) 1.9 x10^3/uL (1.0-4.8) Monocytes # (Auto) 0.6 x10^3/uL (0.0-1.1) Eosinophils # (Auto) 0.6 x10^3/uL (0.0-0.7) Basophils # (Auto) 0.0 x10^3/uL (0.0-0.2) Sodium Level 136 mmol/L (136-145) Potassium Level 4.2 mmol/L (3.5-5.1) Chloride Level 102 mmol/L (98-107) Carbon Dioxide Level 23 mmol/L (21-32) Anion Gap 11 (6-14) Blood Urea Nitrogen 16 mg/dL (7-20) Creatinine 0.9 mg/dL (0.6-1.0) Estimated GFR (Cockcroft-Gault) 68.0 Glucose Level 104 mg/dL (70-99) Calcium Level 9.0 mg/dL (8.5-10.1) Microbiology 04/15/20 Blood Culture - Preliminary, Resulted NO GROWTH AFTER 1 DAY 04/15/20 Urine Culture - Final, Complete Medications Current Medications Ondansetron HCl (Zofran) 4 mg 1X ONCE IVP Last administered on 04/15/20at 12:43; Start 04/15/20 at 12:15; Stop 04/15/20 at 12:16; Status DC Morphine Sulfate (Morphine Sulfate) 4 mg 1X ONCE IV Last administered on at 12:43; Start 04/15/20 at 12:45; Stop 04/15/20 at 12:52; Status DC Sodium Chloride 1,920 ml @ 1,920 mls/hr Q1H IV Last administered on 04/15/20at 12:43; Start 04/15/20 at 12:35; Stop 04/15/20 at 12:51; Status DC Morphine Sulfate (Morphine Sulfate) 4 mg PRN Q15MIN PRN IV/SQ PAIN GREATER THAN 3/10 Last administered on 04/15/20at 15:26; Start 04/15/20 at 12:45; Stop 04/15/20 at 23:13; Status DC Sodium Chloride 1,000 ml @ 1,920 mls/hr Q32M IV Last administered on 04/15/20at 20:40; Start 04/15/20 at 12:51; Stop 04/15/20 at 13:36; Status DC Ondansetron HCl (Zofran) 4 mg 1X ONCE IVP Last administered on 04/15/20at 15:22; Start 04/15/20 at 15:30; Stop 04/15/20 at 15:31; Status DC Sodium Chloride 1,000 ml @ 100 mls/hr Q10H IV Last administered on 04/16/20at 18:00; Start 04/15/20 at 16:32 Ondansetron HCl (Zofran) 4 mg PRN Q4HRS PRN IV NAUSEA/VOMITING; Start 04/15/20 at 16:45 Zolpidem Tartrate (Ambien) 5 mg PRN QHS PRN PO INSOMNIA Last administered on 04/15/20at 22:16; Start 04/15/20 at 16:45 Acetaminophen (Tylenol) 650 mg PRN Q4HRS PRN PO TEMP OVER 100.4F OR MILD PAIN; Start 04/15/20 at 16:45 Acetaminophen (Tylenol Supp) 650 mg PRN Q4HRS PRN MS TEMP OVER 100.4F OR MILD PAIN; Start 04/15/20 at 16:45 Docusate Sodium (Colace) 100 mg PRN BID PRN PO HARD STOOLS; Start 04/15/20 at 16:45 Albuterol Sulfate (Ventolin Neb Soln) 2.5 mg PRN Q4HRS PRN NEB SHORTNESS OF BREATH; Start 04/15/20 at 16:45 Guaifenesin (Robitussin) 200 mg PRN Q4HRS PRN PO COUGH; Start 04/15/20 at 16:45 Acetaminophen (Tylenol) 650 mg PRN Q4HRS PRN PO TEMP OVER 100.4F OR MILD PAIN; Start 04/15/20 at 16:45; Status UNV Docusate Sodium (Colace) 100 mg PRN BID PRN PO HARD STOOLS; Start 04/15/20 at 16:45; Status UNV Famotidine (Pepcid) 20 mg BID PO Last administered on 04/16/20 08:50; Start 04/15/20 at 21:00 Furosemide (Lasix) 40 mg BID94 PO Last administered on 04/16/20at 10:47; Start 04/15/20 at 17:00 Lactobacillus Rhamnosus (Culturelle) 1 cap BID PO Last administered on 04/16/20at 08:51; Start 04/15/20 at 21:00 Levetiracetam (Keppra) 500 mg BID PO Last administered on 04/16/20at 08:50; Start 04/15/20 at 21:00 Sucralfate (Carafate) 1 gm QIDPMEDS PO Last administered on 04/16/20at 17:58; Start 04/15/20 at 18:00 Clonazepam (KlonoPIN) 0.5 mg PRN Q6HRS PRN PO ANXIETY / AGITATION; Start 04/15/20 at 16:45 Fluoxetine HCl (PROzac) 40 mg DAILY PO Last administered on 04/16/20at 08:50; Start 04/16/20 at 09:00 Risperidone (RisperDAL) 5 mg BID PO Last administered on 04/16/20at 08:50; Start 04/15/20 at 21:00 Ondansetron HCl (Zofran) 4 mg PRN Q8HRS PRN IV NAUSEA/VOMITING; Start 04/15/20 at 17:00; Stop 04/16/20 at 12:27; Status DC Morphine Sulfate (Morphine Sulfate) 4 mg PRN Q2HR PRN IV PAIN Last administered on 04/15/20at 22:10; Start 04/15/20 at 17:00; Stop 6/6/20 at 23:14; Status DC Sodium Chloride 1,000 ml @ 75 mls/hr 1X ONCE IV Last administered on 04/15/20at 20:37; Start 04/15/20 at 17:00; Stop 04/16/20 at 06:19; Status DC Morphine Sulfate (Morphine Sulfate) 4 mg PRN Q2HRS PRN IV/SQ PAIN GREATER THAN 7/10 Last administered on 04/16/20at 08:45; Start 04/15/20 at 23:15; Stop 04/16/20 at 10:10; Status DC Heparin Sodium (Porcine) (Heparin Sodium) 5,000 unit Q8HRS SQ Last administered on 04/16/20at 14:08; Start 04/16/20 at 06:00 Morphine Sulfate (Morphine Sulfate) 4 mg PRN Q2HR PRN IV MODERATE TO SEVERE PAIN Last administered on 04/16/20at 12:54; Start 04/16/20 at 10:15; Stop 04/16/20 at 13:28; Status DC Acetaminophen/ Hydrocodone Bitart (Lortab 7.5/325) 1 tab PRN Q6HRS PRN PO MODERATE PAIN Last administered on 04/16/20at 14:03; Start 04/16/20 at 13:30 Active Scripts Active Hydrocodone-Apap 5-325 (Hydrocodone Bit/Acetaminophen) 1 Tab Tablet 1 Tab PO PRN BID PRN 6 Days Doxycycline Monohydrate 100 Mg Capsule 1 Cap PO BID 7 Days Culturelle (Lactobacillus Rhamnosus Gg) 1 Each Cap.sprink 1 Cap PO BID 30 Days Dok (Docusate Sodium) 100 Mg Capsule 100 Mg PO PRN BID PRN 30 Days Tylenol (Acetaminophen) 325 Mg Tablet 650 Mg PO PRN Q4HRS PRN 30 Days Pepcid (Famotidine) 20 Mg Tablet 20 Mg PO BID Zofran Odt (Ondansetron) 4 Mg Tab.rapdis 1 Tab SL Q8HRS PRN Reported Flagyl (Metronidazole) 500 Mg Tablet 1 Tab PO Q6HRS Levaquin (Levofloxacin) 500 Mg Tablet 1 Tab PO DAILY 7 Days Keppra (Levetiracetam) 500 Mg Tablet 500 Mg PO BID Carafate (Sucralfate) 1 Gm Tablet 1 Tab PO QID 30 Days Lasix (Furosemide) 40 Mg Tablet 40 Mg PO BID Clonazepam 1 Mg Tablet 0.5 Mg PO PRN Q6HRS PRN Risperdal (Risperidone) 4 Mg Tablet 5 Mg PO BID Prozac (Fluoxetine Hcl) 40 Mg Capsule 1 Cap PO DAILY Vitals/I & O Vital Sign - Last 24 Hours 04/15/20 04/15/20 04/15/20 04/15/20 19:27 19:57 22:10 22:48 Resp 20 20 18 18 Pulse Ox 94 94 O2 Delivery Room Air Room Air 04/15/20 04/16/20 04/16/20 04/16/20 23:45 02:57 03:01 03:40 Temp 97.6 97.9 97.6 97.9 Pulse 101 103 Resp 18 18 18 17 B/P (MAP) 116/73 (87) 122/80 (94) Pulse Ox 92 94 94 O2 Delivery Room Air Room Air Room Air Room Air 04/16/20 04/16/20 04/16/20 04/16/20 05:34 06:14 07:00 08:00 Temp 99.0 99.0 Pulse 102 Resp 18 18 18 B/P (MAP) 105/78 (87) Pulse Ox 94 94 94 O2 Delivery Room Air Room Air Room Air Room Air 04/16/20 04/16/20 04/16/20 04/16/20 08:45 10:46 11:00 12:54 Temp 98.3 98.3 Pulse 95 Resp 20 B/P (MAP) 93/58 (70) Pulse Ox 93 O2 Delivery Room Air Room Air Room Air Room Air 04/16/20 04/16/20 04/16/20 14:03 15:00 15:03 Temp 98.2 98.2 Pulse 86 Resp 18 B/P (MAP) 104/60 (75) Pulse Ox 94 O2 Delivery Room Air Room Air Room Air Intake and Output 04/15/20 04/15/20 04/16/20 15:00 23:00 07:00 Intake Total 1000 ml 480 ml 420 ml Balance 1000 ml 480 ml 420 ml MOHAN ZEPEDA MD Apr 16, 2020 19:25
[2020-04-16] MEDS: ZOLPIDEM 5 MG TABLET. PO PRN (20:59)
--- NOTE | 2020-04-16 21:52 | NUR ---
Patient left AMA @ 2131, picked up patient in POV @ 2141. Notified DR Thurston of patient wanting AMA of 2121 hours. Offered patient further medical treatments and options but patient refused all.
== END 2020-04-16 21:32 | disposition left against medical advice (07) | DRG 391 ==
LOC: ER 11:22 → 4 NORTH 16:36
PROVIDERS: ADMIT Internal Medicine; ATTEND Internal Medicine
DX: R10.9 Unspecified abdominal pain (principal); K65.0 Generalized (acute) peritonitis; J18.9 Pneumonia, unspecified organism; J98.11 Atelectasis; D69.6 Thrombocytopenia, unspecified; D64.9 Anemia, unspecified; E78.00 Pure hypercholesterolemia, unspecified; F20.9 Schizophrenia, unspecified; F31.9 Bipolar disorder, unspecified; F41.9 Anxiety disorder, unspecified; I11.0 Hypertensive heart disease with heart failure; I25.2 Old myocardial infarction; I50.9 Heart failure, unspecified; J44.9 Chronic obstructive pulmonary disease, unspecified; N20.0 Calculus of kidney; K21.9 Gastro-esophageal reflux disease without esophagitis; Z53.29 Procedure and treatment not carried out because of patient's decision for other reasons; R74.0 Nonspecific elevation of levels of transaminase and lactic acid dehydrogenase [LDH]; R56.9 Unspecified convulsions; Z82.0 Family history of epilepsy and other diseases of the nervous system; Z86.711 Personal history of pulmonary embolism; Z87.11 Personal history of peptic ulcer disease; Z87.442 Personal history of urinary calculi; Z87.891 Personal history of nicotine dependence; Z88.0 Allergy status to penicillin; Z88.1 Allergy status to other antibiotic agents; Z90.49 Acquired absence of other specified parts of digestive tract; Z90.710 Acquired absence of both cervix and uterus; Z95.828 Presence of other vascular implants and grafts; Z86.718 Personal history of other venous thrombosis and embolism; Z79.01 Long term (current) use of anticoagulants; Z88.8 Allergy status to other drugs, medicaments and biological substances
CPT/HCPCS: 36415; 74176; 80048; 80053; 81001; 83605; 83690; 84145; 85025; 87040; 87086; 96374; 96375; 96376; 99285; J1644; J2270; J2405; J7030; G0378

== ENCOUNTER 2020-04-19 07:00 | Outpatient (CLI) | payer SELFPAY ==
[~2020-04-19] VITALS: Ht 172.7 cm; Wt 106.1 kg
[2020-04-19 07:33] VITALS: BP 153/88
[2020-04-19] MEDS ORDERED: IOHEXOL 240 MG/ML 50ML VIAL. ONE (07:55)
[2020-04-19] MEDS ORDERED: IOHEXOL 240 MG/ML 50ML VIAL. IJ ONE (08:15)
[2020-04-19] MEDS ORDERED: OXYC1TAB15 PO (08:26)
--- NOTE | 2020-04-19 08:38 | NUR ---
RLQ site dressing is clean and dry. pt did receive a small amount of contrast via drain tube injection. pt is not having any adverse reaction now. Dr. Bennett talked with her and she will take benadryl 50mg po when she gets home and instructed to go to ER if having any other adverse reactions. d/c instructions given- pt has appointment to see Dr. Landers next week FridayApril 26. pt ambulated w/o problem -left unit w/her .
--- NOTE | 2020-04-20 15:28 | RAD ---
04/19/2020 Procedure: Abscessogram Clinical Indication: DRAIN CHECK/POSS REMOVAL Discussion: The procedure was explained in its entirety to the patient or the patients designated public health representative by a member of the treatment team, including a discussion of the risks, benefits and commonly accepted alternatives to the procedure, as well as the expected consequences of no therapy whatsoever. Discussion of the risks included, but was not limited to, those that are most frequent and those that are rare but possibly severe or life-threatening, as well as the possibility of unforeseen complications. All elements of maximal sterile barrier technique including the use of a cap, mask, sterile gown, sterile gloves, large sterile sheet, appropriate hand hygiene, and 2% chlorhexidine for cutaneous antisepsis (or acceptable alternative antiseptic per current guidelines) were followed for this procedure. Drain was inspected. Minimal serous output was seen to drain. Patient reports less than 10 cc daily times several days of this type of output. Minimal contrast was administered under fluoroscopy. Essentially no residual cavity noted. Contrast was nearly completely aspirated. The drain was removed without issue. Sterile dressings were applied. Total fluoroscopy time: 0.2 min Dose area product: 1 pham centimeters squared Impression: Abscessogram and drain removal
== END 2020-04-19 08:30 | disposition home or self-care (01) ==
LOC: INTRAD 07:00
PROVIDERS: ATTEND Pediatrics
DX: L02.211 Cutaneous abscess of abdominal wall (principal)
CPT/HCPCS: 49424; 76080; Q9966

== ENCOUNTER 2020-04-20 15:01 | Emergency (ER) | payer SELFPAY ==
[~2020-04-20] VITALS: Ht 172.7 cm; Wt 106.3 kg
[2020-04-20] MEDS ORDERED: IV NORMAL SALINE 1000ML BAG 1,000 ML IV ONE (15:30)
[2020-04-20] MEDS ORDERED: ONDANSETRON PF 4 MG/2 ML VIAL. IVP ONE (15:45)
[2020-04-20] MEDS ORDERED: fentaNYL PF VIAL 100 MCG/2 ML VIAL IVP ONE (15:45)
--- NOTE | 2020-04-20 16:23 | PHYS DOC ---
Past Medical History Past Medical History: CHF, COPD, DVT, High Cholesterol, Hypertension, Kidney Stone, [place], P.U.D., Seizure, UTI, Other Additional Past Medical Histor: Pulmonary Embolism, Lupus, Bleeding Gastric Ulcers Past Surgical History: Appendectomy, Cholecystectomy, , Hysterectomy, Tonsillectomy, Other Additional Past Surgical Histo: IVC filter placed and removed Smoking Status: Former Smoker Alcohol Use: Rarely Drug Use: None General Adult EDM: Chief Complaint: OTHER COMPLAINTS HPI: HPI: Patient is a 44 year old female presents with right calf pain which is sharp in nature that started yesterday. Patient does report history of PE/DVT. Patient reports had surgery on March 14, 2020. Denies fever or chills. Denies trauma. Review of Systems: Review of Systems: Constitutional: Denies fever or chills Eyes: Denies redness or eye pain HENT: Denies nasal congestion or sore throat Respiratory: Denies cough or shortness of breath Cardiovascular: Denies chest pain or palpitations GI: Denies abdominal pain, nausea, or vomiting Musculoskeletal: Denies back pain; reports right calf pain Integument: Denies rash or skin lesions Neurologic: Denies headache, focal weakness or sensory changes Complete systems were reviewed and found to be within normal limits, except as documented in this note. Current Medications: Current Medications Medications (Trade) Dose Ordered Sig/Tex Start Time Stop Time Status Last Admin Dose Admin Fentanyl Citrate (Fentanyl 2ml Vial) 75 mcg 1X ONCE 04/20/20 15:45 04/20/20 15:46 DC Ondansetron HCl (Zofran) 4 mg 1X ONCE 04/20/20 15:45 04/20/20 15:46 DC Sodium Chloride 1,000 ml @ 1,000 mls/hr 1X ONCE 04/20/20 15:30 04/20/20 16:29 Allergies: Allergies: Allergies Coded Allergies Type Severity Reaction Last Updated Verified Iodine and Iodide Containing Produc Allergy Severe throat swelling to IV contrast 04/19/20 Yes Cephalexin Monohydrate Allergy Intermediate SWELLING,TROUBLE BREATHING 04/16/20 Yes NSAIDS (Non-Steroidal Anti-Inflamma Allergy Intermediate 03/18/20 Yes Penicillins Allergy Intermediate SWELLING,TROUBLE BREATHING 04/16/20 Yes iodine Allergy Intermediate 03/18/20 Yes lidocaine Allergy Intermediate 03/18/20 Yes prochlorperazine edisylate Allergy Intermediate 03/18/20 Yes prochlorperazine maleate Allergy Intermediate 03/18/20 Yes sulfamethoxazole Allergy Intermediate SWELLING,TROUBLE BREATHING 04/16/20 Yes trimethoprim Allergy Intermediate SWELLING,TROUBLE BREATHING 04/16/20 Yes Physical Exam: PE: Constitutional: Well developed, well nourished, no acute distress, non-toxic appearance HENT: Normocephalic, atraumatic Eyes: Conjunctiva normal, no discharge Neck: Normal range of motion, no tenderness, supple Cardiovascular: Right DP and PT +2, CR < 2 sec Lungs & Thorax: Bilateral breath sounds clear to auscultation, no wheezing Skin: Warm, dry, no erythema, no rash Extremities: Right calf tenderness on palpation, ROM intact Neurologic: Alert and oriented X 3, normal motor function, normal sensory function, no focal deficits noted Psychologic: Affect normal, judgment normal Current Patient Data: Vital Signs: Vital Signs Date Time Temp Pulse Resp B/P (MAP) Pulse Ox O2 Delivery O2 Flow Rate FiO2 04/20/20 15:15 98.6 98 18 198/100 (132) 100 Room Air 98.6 EKG: EKG: [] Radiology/Procedures: Radiology/Procedures: PROCEDURE: VENOUS LOWER EXTREMITY RIGHT Examination: Bilateral venous Doppler Indication: Leg swelling Technique: Ultrasound evaluation of the bilateral lower extremities was performed from the groin to the upper calf with jennings scale, spectral and color doppler evaluation. Comparison: None Findings: There is normal venous flow and compressibility of bilateral common femoral veins, femoral veins, popliteal veins, and visualized proximal calf veins. Impression: No evidence for deep vein thrombosis of bilateral lower extremities from the level of the calf veins to the groins. Electronically signed by: Devan Dockery MD (04/20/2020 4:23 PM) [id number] Course & Med Decision Making: Course & Med Decision Making Pertinent Labs and Imaging studies reviewed. (See chart for details) Patient presents with calf pain that started yesterday. Denies significant swelling. Patient does have a history of prior DVT and PE. Patient reports surgery on 03/14/20. Labs obtained and posted to chart. D-dimer within normal l imits. Venous Doppler negative for acute DVT. Pain addressed. IV fluid hydration given. Patient stable for discharge with outpatient follow-up with PCP. Discussed findings and plan with patient and family, who acknowledge understanding and agreement. Dragon Disclaimer: Re Disclaimer: This electronic medical record was generated, in whole or in part, using a voice recognition dictation system. Departure Departure Impression: Primary Impression: Leg pain Qualified Codes: M79.604 - Pain in right leg Disposition: HOME, SELF-CARE Condition: STABLE Referrals: NO PCP (PCP) Patient Instructions: Leg Cramps, Peripheral Edema Additional Instructions: Continue previously prescribed pain medication at home as needed. Justicifation of Admission Dx: Justifications for Admission: Justification of Admission Dx: N/A GREGORIA SLAUGHTER DO Apr 20, 2020 16:23
--- NOTE | 2020-04-20 16:26 | RAD ---
Examination: Bilateral venous Doppler Indication: Leg swelling Technique: Ultrasound evaluation of the bilateral lower extremities was performed from the groin to the upper calf with jennings scale, spectral and color doppler evaluation. Comparison: None Findings: There is normal venous flow and compressibility of bilateral common femoral veins, femoral veins, popliteal veins, and visualized proximal calf veins. Impression: No evidence for deep vein thrombosis of bilateral lower extremities from the level of the calf veins to the groins. Electronically signed by: Devan Dockery MD (04/20/2020 4:23 PM) [id number]
[2020-04-20] MEDS ORDERED: fentaNYL PF VIAL 100 MCG/2 ML VIAL IM ONE (16:45)
[2020-04-20] MEDS ORDERED: ONDANSETRON ODT 4 MG TAB.RAPDIS. PO ONE (16:45)
[2020-04-20 17:28] LABS: BASO # 0.1 x10^3/uL (0.0-0.2); BASO % 1 % (0-3); EOS # 0.6 x10^3/uL (0.0-0.7); EOS % 6 % (0-3); HEMATOCRIT 30.9 % (36.0-47.0); HEMOGLOBIN 10.6 g/dL (12.0-15.5); LYMPH # 3.3 x10^3/uL (1.0-4.8); LYMPH % 32 % (24-48); MEAN CORPUSCULAR HEMOGLOBIN 31 pg (25-35); MEAN CORPUSCULAR HGB CONC 34 g/dL (31-37); MEAN CORPUSCULAR VOLUME 89 fL (79-100); MONO # 0.9 x10^3/uL (0.0-1.1); MONO % 9 % (0-9); NEUT # 5.2 x10^3/uL (1.8-7.7); NEUT % 52 % (31-73); PLATELET COUNT 641 x10^3/uL (140-400); RED BLOOD COUNT 3.46 x10^6/uL (3.50-5.40); RED CELL DISTRIBUTION WIDTH 14.9 % (11.5-14.5); WHITE BLOOD COUNT 10.2 x10^3/uL (4.0-11.0)
[2020-04-20 17:36] LABS: CALCIUM 8.9 mg/dL (8.5-10.1); CREATININE 0.8 mg/dL (0.6-1.0); GFR 77.9; POTASSIUM 4.1 mmol/L (3.5-5.1)
[2020-04-20 17:39] LABS: PROTHROMBIN TIME PATIENT 13.3 SEC (11.7-14.0)
[2020-04-20 17:42] VITALS: BP 115/67
[2020-04-20 17:42] LABS: ALBUMIN 2.6 g/dL (3.4-5.0); ALBUMIN/GLOBULIN RATIO 0.6 (1.0-1.7); MAGNESIUM 1.7 mg/dL (1.8-2.4)
[2020-04-20 17:44] LABS: D-DIMER 0.39 ug/mlFEU (0.00-0.50)
[2020-04-20 17:57] LABS: TOTAL BILIRUBIN 0.1 mg/dL (0.2-1.0)
[2020-04-20] MEDS ORDERED: oxyCODONE/APAP 5/325 1 TAB TABLET PO ONE (19:00)
== END 2020-04-20 19:10 | disposition home or self-care (01) ==
LOC: ER 15:01
DX: M79.604 Pain in right leg (principal); I13.0 Hypertensive heart and chronic kidney disease with heart failure and stage 1 through stage 4 chronic kidney disease, or unspecified chronic kidney disease; N18.9 Chronic kidney disease, unspecified; I50.9 Heart failure, unspecified; J44.9 Chronic obstructive pulmonary disease, unspecified; E78.00 Pure hypercholesterolemia, unspecified; I25.2 Old myocardial infarction; Z90.49 Acquired absence of other specified parts of digestive tract; Z90.89 Acquired absence of other organs; Z98.890 Other specified postprocedural states; Z87.891 Personal history of nicotine dependence; Z86.718 Personal history of other venous thrombosis and embolism; Z88.1 Allergy status to other antibiotic agents; Z88.0 Allergy status to penicillin; Z88.6 Allergy status to analgesic agent; Z88.2 Allergy status to sulfonamides; Z88.8 Allergy status to other drugs, medicaments and biological substances; Z88.5 Allergy status to narcotic agent
CPT/HCPCS: 36415; 80053; 83735; 85025; 85379; 85610; 85730; 93971; 96372; 99284; J3010; 99285

== ENCOUNTER 2020-04-26 14:56 | Emergency (ER) | payer SELFPAY ==
[~2020-04-26] VITALS: Ht 172.7 cm; Wt 106.8 kg
[2020-04-26 15:09] VITALS: BP 108/60
[2020-04-26] MEDS ORDERED: ONDANSETRON ODT 4 MG TAB.RAPDIS. PO ONE (15:15)
[2020-04-26] MEDS ORDERED: ACETAMINOPHEN 325 MG TABLET. PO ONE (15:15)
--- NOTE | 2020-04-26 15:22 | PHYS DOC ---
Past Medical History Past Medical History: CHF, COPD, DVT, High Cholesterol, Hypertension, Kidney Stone, [place], P.U.D., Seizure, UTI, Other Additional Past Medical Histor: Pulmonary Embolism, Lupus, Bleeding Gastric Ulcers Past Surgical History: Appendectomy, Cholecystectomy, , Hysterectomy, Tonsillectomy, Other Additional Past Surgical Histo: IVC filter placed and removed Smoking Status: Former Smoker Alcohol Use: Rarely Drug Use: None General Adult EDM: Chief Complaint: ABDOMINAL PAIN HPI: HPI: Patient is a 44 year old female patient who presents with recurring abdominal pain. States that her pain is started yesterday, has continued today and feels like it has gone into her back. States she has some discomfort near her surgical incision, had abdominal surgery March 15, 2020. Had been admitted for abdominal pain in the past month. Does report she has a follow-up appoint with her surgeon next week. States she has had some nausea, denies any vomiting. States no diarrhea, last bowel movement was today, normal. Denies fever. Denies dizziness. Review of Systems: Review of Systems: Constitutional: Denies fever or chills. [] Eyes: Denies change in visual acuity. [] HENT: Denies nasal congestion or sore throat. [] Respiratory: Denies cough or shortness of breath. [] Cardiovascular: Denies chest pain or edema. [] GI: Reports abdominal pain, nausea. Denies vomiting. Denies bloody stools, denies diarrhea. States abdominal pain seems to go from the front into her back. : Denies dysuria. [] Musculoskeletal: Denies back pain or joint pain. Does report pain seems to go from her abdomen into her back. [] Integument: Denies rash. [] Neurologic: Denies headache, focal weakness or sensory changes. [] Endocrine: Denies polyuria or polydipsia. [] Lymphatic: Denies swollen glands. [] Psychiatric: Denies depression or anxiety. [] Heart Score: Risk Factors: Risk Factors: DM, Current or recent (<one month) smoker, HTN, HLP, family history of CAD, obesity. Risk Scores: Score 0 - 3: 2.5% MACE over next 6 weeks - Discharge Home Score 4 - 6: 20.3% MACE over next 6 weeks - Admit for Clinical Observation Score 7 - 10: 72.7% MACE over next 6 weeks - Early Invasive Strategies Allergies: Allergies: Allergies Coded Allergies Type Severity Reaction Last Updated Verified Iodine and Iodide Containing Produc Allergy Severe throat swelling to IV contrast 04/19/20 Yes Cephalexin Monohydrate Allergy Intermediate SWELLING,TROUBLE BREATHING 04/16/20 Yes NSAIDS (Non-Steroidal Anti-Inflamma Allergy Intermediate 03/18/20 Yes Penicillins Allergy Intermediate SWELLING,TROUBLE BREATHING 04/16/20 Yes iodine Allergy Intermediate 03/18/20 Yes lidocaine Allergy Intermediate 03/18/20 Yes prochlorperazine edisylate Allergy Intermediate 03/18/20 Yes prochlorperazine maleate Allergy Intermediate 03/18/20 Yes sulfamethoxazole Allergy Intermediate SWELLING,TROUBLE BREATHING 04/16/20 Yes trimethoprim Allergy Intermediate SWELLING,TROUBLE BREATHING 04/16/20 Yes Physical Exam: PE: Constitutional: Well developed, well nourished, no acute distress, non-toxic appearance. [] HENT: Normocephalic, atraumatic, bilateral external ears normal, oropharynx moist, no oral exudates, nose normal. [] Eyes: PERRLA, EOMI, conjunctiva normal, no discharge. [] Neck: Normal range of motion, no tenderness, supple, no stridor. [] Cardiovascular:Heart rate regular rhythm, no murmur [] Lungs & Thorax: Bilateral breath sounds clear to auscultation [] Abdomen: Bowel sounds normal, soft, no tenderness, no masses, no pulsatile masses. Midline incision site appears well-healing, no erythema, no purulence, no surrounding tenderness or abscess noted. [] Skin: Warm, dry, no erythema, no rash. [] Back: No tenderness, no CVA tenderness. [] Extremities: No tenderness, no cyanosis, no clubbing, ROM intact, no edema. [] Neurologic: Alert and oriented X 3, normal motor function, normal sensory function, no focal deficits noted. [] Psychologic: Affect normal, judgement normal, mood normal. [] EKG: EKG: [] Radiology/Procedures: Radiology/Procedures: Comparison: April 15, 2020 Findings: Lower chest: Right middle lobe linear atelectasis. Abdomen and pelvis: The liver, spleen, adrenal glands, and pancreas are unremarkable. Prior cholecystectomy. Bilateral nonobstructing renal calculi. Lobulated appearance the kidneys. No hydronephrosis. Decompressed urinary bladder. IVC filter noted with limbs extending down the IVC, unchanged. Appendix not well seen. No evidence of bowel obstruction. Gastric antral wall thickening, slightly decreased compared to prior. Interval removal of percutaneous drain within the right upper abdomen. No fluid collection. Decreased infiltration of the upper abdominal mesentery. Small retroperitoneal and mesenteric lymph nodes, unchanged. No ascites. Prior hysterectomy. Bones: No pathologic osseous lesions. Impression: 1. Slightly decreased gastric antral wall thickening and adjacent inflammatory changes. Interval removal of percutaneous pigtail drain. 2. Bilateral nonobstructing renal calculi. Electronically signed by: Dave Ruelas DO (04/26/2020 4:07 PM) [facility] [place][] Course & Med Decision Making: Course & Med Decision Making Pertinent Labs and Imaging studies reviewed. (See chart for details) []Reviewed imaging without acute findings. Reviewed recent history, with numerous episodes of patient presenting to ER for various pain complaints and n oted history of prior behaviors seeking opioids. Patient had refused acetaminophen administration per RN Patient left AMA, refusing repeat metabolic panel due to hemolysis in sample and possibly elevated potassium level. Patient leaves department AMA Dragon Disclaimer: Re Disclaimer: This electronic medical record was generated, in whole or in part, using a voice recognition dictation system. Departure Departure Disposition: 07 AGAINST MEDICAL ADVICE Referrals: NO PCP (PCP) Justicifation of Admission Dx: Justifications for Admission: Justification of Admission Dx: N/A AMARJIT MCPHERSON APRN Apr 26, 2020 15:22
[2020-04-26 15:36] LABS: BILIRUBIN,URINE NEGATIVE (NEG); CLARITY,URINE CLEAR; COLOR,URINE YELLOW; NITRITE,URINE NEGATIVE (NEG); PROTEIN,URINE NEGATIVE (NEG-TRACE); UROBILINOGEN,URINE 0.2 mg/dL (0.2 mg/dL)
[2020-04-26 16:05] LABS: BACTERIA,URINE FEW /HPF (0-FEW); HYALINE CASTS, URINE FEW /HPF; SQUAMOUS EPITHELIAL CELL,UR MANY /LPF
--- NOTE | 2020-04-26 16:10 | RAD ---
CT ABDOMEN PELVIS WO CONTRAST History: Reason: recurring abdominal pain / Spl. Instructions: / History: Technique: Noncontrast examination of the abdomen and pelvis. Coronal and sagittal reconstructions were performed. Exposure: One or more of the following individualized dose reduction techniques were utilized for this examination: 1. Automated exposure control 2. Adjustment of the mA and/or kV according to patient size 3. Use of iterative reconstruction technique. Comparison: April 15, 2020 Findings: Lower chest: Right middle lobe linear atelectasis. Abdomen and pelvis: The liver, spleen, adrenal glands, and pancreas are unremarkable. Prior cholecystectomy. Bilateral nonobstructing renal calculi. Lobulated appearance the kidneys. No hydronephrosis. Decompressed urinary bladder. IVC filter noted with limbs extending down the IVC, unchanged. Appendix not well seen. No evidence of bowel obstruction. Gastric antral wall thickening, slightly decreased compared to prior. Interval removal of percutaneous drain within the right upper abdomen. No fluid collection. Decreased infiltration of the upper abdominal mesentery. Small retroperitoneal and mesenteric lymph nodes, unchanged. No ascites. Prior hysterectomy. Bones: No pathologic osseous lesions. Impression: 1. Slightly decreased gastric antral wall thickening and adjacent inflammatory changes. Interval removal of percutaneous pigtail drain. 2. Bilateral nonobstructing renal calculi. Electronically signed by: Dave Ruelas DO (04/26/2020 4:07 PM) [facility]
[2020-04-26 16:11] LABS: BASO # 0.2 x10^3/uL (0.0-0.2); BASO % 2 % (0-3); EOS # 0.9 x10^3/uL (0.0-0.7); EOS % 9 % (0-3); HEMATOCRIT 34.6 % (36.0-47.0); HEMOGLOBIN 11.8 g/dL (12.0-15.5); LYMPH # 3.2 x10^3/uL (1.0-4.8); LYMPH % 32 % (24-48); MEAN CORPUSCULAR HEMOGLOBIN 31 pg (25-35); MEAN CORPUSCULAR HGB CONC 34 g/dL (31-37); MEAN CORPUSCULAR VOLUME 91 fL (79-100); MONO % 10 % (0-9); NEUT # 4.8 x10^3/uL (1.8-7.7); NEUT % 48 % (31-73); PLATELET COUNT 702 x10^3/uL (140-400); RED BLOOD COUNT 3.83 x10^6/uL (3.50-5.40); RED CELL DISTRIBUTION WIDTH 15.6 % (11.5-14.5); WHITE BLOOD COUNT 10.1 x10^3/uL (4.0-11.0)
[2020-04-26] MEDS ORDERED: HYOSCYAMINE 0.125 MG TAB.RAPDIS PO PRN (16:30)
== END 2020-04-26 16:52 | disposition left against medical advice (07) ==
LOC: ER 14:56
DX: N20.0 Calculus of kidney (principal); I11.0 Hypertensive heart disease with heart failure; I50.9 Heart failure, unspecified; J44.9 Chronic obstructive pulmonary disease, unspecified; E78.00 Pure hypercholesterolemia, unspecified; I25.2 Old myocardial infarction; Z86.73 Personal history of transient ischemic attack (TIA), and cerebral infarction without residual deficits; Z87.891 Personal history of nicotine dependence; Z90.89 Acquired absence of other organs; Z90.710 Acquired absence of both cervix and uterus; Z90.49 Acquired absence of other specified parts of digestive tract; Z87.442 Personal history of urinary calculi; Z88.0 Allergy status to penicillin; Z88.1 Allergy status to other antibiotic agents; Z88.2 Allergy status to sulfonamides; Z88.4 Allergy status to anesthetic agent; Z88.5 Allergy status to narcotic agent; Z91.041 Radiographic dye allergy status; Z88.8 Allergy status to other drugs, medicaments and biological substances
CPT/HCPCS: 36415; 74176; 81001; 85025; 87086; 99284

== ENCOUNTER 2020-05-26 15:08 | Inpatient (IN) | payer MEDICAID ==
[~2020-05-26] VITALS: Ht 172.7 cm; Wt 104.3 kg
[2020-05-26 17:07] LABS: BILIRUBIN,URINE SMALL (NEG); CLARITY,URINE CLEAR; COLOR,URINE YELLOW; NITRITE,URINE NEGATIVE (NEG); PH,URINE 5.5 (<5.0-8.0); PROTEIN,URINE NEGATIVE (NEG-TRACE); UROBILINOGEN,URINE 0.2 mg/dL (0.2 mg/dL)
[2020-05-26] MEDS ORDERED: ONDANSETRON PF 4 MG/2 ML VIAL. IV ONE (17:15)
[2020-05-26] MEDS ORDERED: IV NORMAL SALINE 1000ML BAG 1,000 ML IV ONE (17:15)
[2020-05-26 17:17] LABS: BACTERIA,URINE FEW /HPF (0-FEW); HYALINE CASTS, URINE MANY /HPF; RBC,URINE 0 /HPF (0-2); SQUAMOUS EPITHELIAL CELL,UR MANY /LPF
--- NOTE | 2020-05-26 17:51 | RAD ---
Exam: CT of abdomen and pelvis without contrast INDICATION: Abdominal pain TECHNIQUE: Sequential axial images through the abdomen and pelvis obtained without IV contrast. Sagittal and coronal reformatted images were reconstructed from the axial data and reviewed. Comparisons: 04/26/2020 FINDINGS: Heart size is normal. No pericardial effusion. Visualized lung bases are clear. No pleural effusion. Evaluation of solid organs is limited secondary to noncontrast technique. Liver, spleen, pancreas and adrenals are unremarkable. Gallbladder surgically absent. Several nonobstructing renal calculi are noted bilaterally. No ureteral calculi are identified. No perinephric inflammation or hydronephrosis. Bladder is decompressed not well evaluated. Uterus is absent. No abnormal adnexal mass. Large and small bowel are unremarkable. Appendix is not identified. No free intra-abdominal air or fluid. No obstruction. There is mild fat stranding surrounding the gastric body. Abdominal aorta has a normal course and caliber. IVC filter is noted. No enlarged abdominal lymph nodes are identified. No suspicious osseous lesions or acute acute fractures. IMPRESSION: 1. Mild gastric wall thickening with adjacent fat stranding. Correlate for gastritis. 2. Bilateral nonobstructing renal calculi. Exposure: One or more of the following in the visualized dose reduction techniques were utilized for this examination: 1. Automated exposure control 2. Adjustment of the MA and/or KV according to patient size 3. Use of iterative of reconstructive technique Electronically signed by: Sneha Cameron MD (05/26/2020 5:48 PM) [id number]
[2020-05-26 18:06] LABS: BASO # 0.1 x10^3/uL (0.0-0.2); BASO % 2 % (0-3); EOS # 0.4 x10^3/uL (0.0-0.7); EOS % 4 % (0-3); HEMATOCRIT 35.2 % (36.0-47.0); HEMOGLOBIN 12.3 g/dL (12.0-15.5); LYMPH # 3.2 x10^3/uL (1.0-4.8); LYMPH % 38 % (24-48); MEAN CORPUSCULAR HEMOGLOBIN 31 pg (25-35); MEAN CORPUSCULAR HGB CONC 35 g/dL (31-37); MEAN CORPUSCULAR VOLUME 89 fL (79-100); MONO # 0.7 x10^3/uL (0.0-1.1); MONO % 8 % (0-9); NEUT % 48 % (31-73); PLATELET COUNT 544 x10^3/uL (140-400); RED BLOOD COUNT 3.94 x10^6/uL (3.50-5.40); RED CELL DISTRIBUTION WIDTH 16.4 % (11.5-14.5); WHITE BLOOD COUNT 8.4 x10^3/uL (4.0-11.0)
[2020-05-26] MEDS: HYDROmorphone 2 MG/ML VIAL IV/SQ PRN ×3 (18:13→22:26)
[2020-05-26 18:19] LABS: CALCIUM 9.1 mg/dL (8.5-10.1); GFR 60.2; POTASSIUM 4.4 mmol/L (3.5-5.1)
[2020-05-26 18:25] LABS: ALBUMIN 3.8 g/dL (3.4-5.0); ALBUMIN/GLOBULIN RATIO 0.9 (1.0-1.7); TOTAL BILIRUBIN 0.2 mg/dL (0.2-1.0); TOTAL PROTEIN 8.1 g/dL (6.4-8.2)
--- NOTE | 2020-05-26 18:41 | PHYS DOC ---
Past Medical History Past Medical History: CHF, COPD, DVT, High Cholesterol, Hypertension, Kidney Stone, [place], P.U.D., Seizure, UTI, Other Additional Past Medical Histor: Pulmonary Embolism, Lupus, Bleeding Gastric Ulcers Past Surgical History: Appendectomy, Cholecystectomy, , Hysterectomy, Tonsillectomy, Other Additional Past Surgical Histo: IVC filter placed and removed,03/2020 Smoking Status: Former Smoker Alcohol Use: Rarely Drug Use: None General Adult EDM: Chief Complaint: ABDOMINAL PAIN HPI: HPI: 44-year-old female presenting to the emergency department today with abdominal pain in the epigastrium. She has a history of a perforated stomach ulcer in 2019. It was sudden onset. The pain is nonradiating. It is sharp shooting and without alleviating factors. She denies vomiting but is nauseous. Review of systems is negative for chest pain shortness of breath vomiting fevers chills. Negative for new rashes. All other review of systems negative. ED course: 44-year-old female presenting to the emergency department today with epigastric abdominal pain. Afebrile with mild tachycardia. Blood pressure mildly elevated. CBC unremarkable. Chemistry panel shows mildly elevated alk phos with minimally elevated ALT. Urinalysis shows trace leukoesterase with few bacteria and many squamous cells. Not strongly suggestive of UTI. Her pain is mildly improved however given her significant medical history and severity of pain will admit her for monitoring. I spoke with Dr. Christopher Kraus who accepts patient for admission. Heart Score: Risk Factors: Risk Factors: DM, Current or recent (<one month) smoker, HTN, HLP, family history of CAD, obesity. Risk Scores: Score 0 - 3: 2.5% MACE over next 6 weeks - Discharge Home Score 4 - 6: 20.3% MACE over next 6 weeks - Admit for Clinical Observation Score 7 - 10: 72.7% MACE over next 6 weeks - Early Invasive Strategies Current Medications: Current Medications Medications (Trade) Dose Ordered Sig/Tex Start Time Stop Time Status Last Admin Dose Admin Hydromorphone HCl (Dilaudid) 0.5 mg PRN Q1HR PRN 05/26/20 17:15 05/26/20 18:13 0.5 MG Ondansetron HCl (Zofran) 4 mg 1X ONCE 05/26/20 17:15 05/26/20 17:16 DC 05/26/20 18:12 4 MG Sodium Chloride 1,000 ml @ 1,000 mls/hr 1X ONCE 05/26/20 17:15 05/26/20 18:14 DC 05/26/20 18:12 1,000 MLS/HR Allergies: Allergies: Allergies Coded Allergies Type Severity Reaction Last Updated Verified Iodine and Iodide Containing Produc Allergy Severe throat swelling to IV contrast 04/19/20 Yes Cephalexin Monohydrate Allergy Intermediate SWELLING,TROUBLE BREATHING 04/16/20 Yes NSAIDS (Non-Steroidal Anti-Inflamma Allergy Intermediate 03/18/20 Yes Penicillins Allergy Intermediate SWELLING,TROUBLE BREATHING 04/16/20 Yes iodine Allergy Intermediate 03/18/20 Yes lidocaine Allergy Intermediate 03/18/20 Yes prochlorperazine edisylate Allergy Intermediate 03/18/20 Yes prochlorperazine maleate Allergy Intermediate 03/18/20 Yes sulfamethoxazole Allergy Intermediate SWELLING,TROUBLE BREATHING 04/16/20 Yes trimethoprim Allergy Intermediate SWELLING,TROUBLE BREATHING 04/16/20 Yes Physical Exam: PE: Constitutional: Well developed, well nourished, no acute distress, non-toxic appearance. [] HENT: Normocephalic, atraumatic, bilateral external ears normal, oropharynx moist, no oral exudates, nose normal. [] Eyes: PERRLA, EOMI, conjunctiva normal, no discharge. [] Neck: Normal range of motion, no tenderness, supple, no stridor. [] Cardiovascular:Heart rate regular rhythm, no murmur [] Lungs & Thorax: Bilateral breath sounds clear to auscultation [] Abdomen: Bowel sounds normal, soft, no tenderness, no masses, no pulsatile masses. No rebound tenderness or guarding. Negative McBurney's point. Negative Yuan sign. Skin: Warm, dry, no erythema, no rash. [] Back: No tenderness, no CVA tenderness. [] Extremities: No tenderness, no cyanosis, no clubbing, ROM intact, no edema. [] Neurologic: Alert and oriented X 3, normal motor function, normal sensory function, no focal deficits noted. [] Psychologic: Affect normal, judgement normal, mood normal. [] Current Patient Data: Labs: Laboratory Tests Test 05/26/20 16:34 05/26/20 17:55 Urine Collection Type Unknown Urine Color Yellow Urine Clarity Clear Urine pH 5.5 (<5.0-8.0) Urine Specific Novice >=1.030 (1.000-1.030) Urine Protein Negative mg/dL (NEG-TRACE) Urine Glucose (UA) Negative mg/dL (NEG) Urine Ketones (Stick) Negative mg/dL (NEG) Urine Blood Negative (NEG) Urine Nitrite Negative (NEG) Urine Bilirubin Small (NEG) Urine Urobilinogen Dipstick 0.2 mg/dL (0.2 mg/dL) Urine Leukocyte Esterase Trace (NEG) Urine RBC 0 /HPF (0-2) Urine WBC 5-10 /HPF (0-4) Urine Squamous Epithelial Cells Many /LPF Urine Bacteria Few /HPF (0-FEW) Urine Hyaline Casts Many /HPF Urine Mucus Marked /LPF White Blood Count 8.4 x10^3/uL (4.0-11.0) Red Blood Count 3.94 x10^6/uL (3.50-5.40) Hemoglobin 12.3 g/dL (12.0-15.5) Hematocrit 35.2 % (36.0-47.0) L Mean Corpuscular Volume 89 fL (79-100) Mean Corpuscular Hemoglobin 31 pg (25-35) Mean Corpuscular Hemoglobin Concent 35 g/dL (31-37) Red Cell Distribution Width 16.4 % (11.5-14.5) H Platelet Count 544 x10^3/uL (140-400) H Neutrophils (%) (Auto) 48 % (31-73) Lymphocytes (%) (Auto) 38 % (24-48) Monocytes (%) (Auto) 8 % (0-9) Eosinophils (%) (Auto) 4 % (0-3) H Basophils (%) (Auto) 2 % (0-3) Neutrophils # (Auto) 4.0 x10^3/uL (1.8-7.7) Lymphocytes # (Auto) 3.2 x10^3/uL (1.0-4.8) Monocytes # (Auto) 0.7 x10^3/uL (0.0-1.1) Eosinophils # (Auto) 0.4 x10^3/uL (0.0-0.7) Basophils # (Auto) 0.1 x10^3/uL (0.0-0.2) Sodium Level 136 mmol/L (136-145) Potassium Level 4.4 mmol/L (3.5-5.1) Chloride Level 104 mmol/L (98-107) Carbon Dioxide Level 18 mmol/L (21-32) L Anion Gap 14 (6-14) Blood Urea Nitrogen 18 mg/dL (7-20) Creatinine 1.0 mg/dL (0.6-1.0) Estimated GFR (Cockcroft-Gault) 60.2 BUN/Creatinine Ratio 18 (6-20) Glucose Level 90 mg/dL (70-99) Calcium Level 9.1 mg/dL (8.5-10.1) Total Bilirubin 0.2 mg/dL (0.2-1.0) Aspartate Amino Transferase (AST) 32 U/L (15-37) Alanine Aminotransferase (ALT) 61 U/L (14-59) H Alkaline Phosphatase 126 U/L (46-116) H Total Protein 8.1 g/dL (6.4-8.2) Albumin 3.8 g/dL (3.4-5.0) Albumin/Globulin Ratio 0.9 (1.0-1.7) L Lipase 55 U/L (73-393) L Laboratory Tests 05/26/20 17:55 Laboratory Tests 05/26/20 17:55 Vital Signs: Vital Signs Date Time Temp Pulse Resp B/P (MAP) Pulse Ox O2 Delivery O2 Flow Rate FiO2 05/26/20 18:13 18 99 Room Air 05/26/20 18:02 86 114/70 (85) 05/26/20 15:44 97.8 97.8 EKG: EKG: [] Radiology/Procedures: Radiology/Procedures: [] Course & Med Decision Making: Course & Med Decision Making Pertinent Labs and Imaging studies reviewed. (See chart for details) [] Dragon Disclaimer: Dragon Disclaimer: This electronic medical record was generated, in whole or in part, using a voice recognition dictation system. Departure Departure Impression: Primary Impression: Abdominal pain Disposition: 09 ADMITTED INPATIENT Admitting Physician: JERO Condition: STABLE Referrals: NO PCP (PCP) Justicifation of Admission Dx: Justifications for Admission: Justification of Admission Dx: Yes Comments: severe abd pain YFN EDWARDS MD May 26, 2020 18:41
[2020-05-26] MEDS ORDERED: IV NORMAL SALINE 1000ML BAG 1,000 ML IV SCH (19:30)
[2020-05-26] MEDS ORDERED: FAMOTIDINE 20 MG/2 ML VIAL IVP ONE (20:00)
--- NOTE | 2020-05-26 20:30 | NUR ---
Patient admitted from ER to room 408 per wheelchair. Admitting diagnosis: abdominal pain. Patient c/o of consistent abdomen pain since yesterday. Cat Scan done and showed gastritis. Patient c/o that the pain is not being relieved by medications ordered from ER. Patient and I discussed orders from ER and patient agreeable with plan of care. In no acute distress at this time. Will continue to monitor.
[2020-05-26 20:44] VITALS: BP 119/83
[2020-05-26] MEDS: fentaNYL PF VIAL 100 MCG/2 ML VIAL IV PRN (20:54)
[2020-05-26 23:00] VITALS: BP 111/61
[2020-05-26] MEDS ORDERED: PANT40TA77 PO (23:40)
[2020-05-27] MEDS: fentaNYL PF VIAL 100 MCG/2 ML VIAL IV PRN (01:49)
[2020-05-27 03:00] VITALS: BP 91/46
[2020-05-27] MEDS: HYDROmorphone 2 MG/ML VIAL IV PRN ×8 (03:17→22:39)
[2020-05-27 07:00] VITALS: BP 95/51
[2020-05-27 08:17] LABS: BASO % 1 % (0-3); EOS # 0.3 x10^3/uL (0.0-0.7); EOS % 5 % (0-3); HEMATOCRIT 32.8 % (36.0-47.0); HEMOGLOBIN 10.9 g/dL (12.0-15.5); LYMPH # 2.6 x10^3/uL (1.0-4.8); LYMPH % 45 % (24-48); MEAN CORPUSCULAR HEMOGLOBIN 30 pg (25-35); MEAN CORPUSCULAR HGB CONC 33 g/dL (31-37); MEAN CORPUSCULAR VOLUME 91 fL (79-100); MONO # 0.5 x10^3/uL (0.0-1.1); MONO % 9 % (0-9); NEUT # 2.3 x10^3/uL (1.8-7.7); NEUT % 40 % (31-73); PLATELET COUNT 444 x10^3/uL (140-400); RED BLOOD COUNT 3.59 x10^6/uL (3.50-5.40); RED CELL DISTRIBUTION WIDTH 16.6 % (11.5-14.5); WHITE BLOOD COUNT 5.8 x10^3/uL (4.0-11.0)
[2020-05-27 08:46] LABS: CALCIUM 8.6 mg/dL (8.5-10.1); CREATININE 0.8 mg/dL (0.6-1.0); GFR 77.9; POTASSIUM 3.8 mmol/L (3.5-5.1)
[2020-05-27 11:00] VITALS: BP 111/59
--- NOTE | 2020-05-27 11:11 | PDOC1 ---
History and Physical Date of Admission Date of Admission DATE: 05/27/20 TIME: 11:09 Identification/Chief Complaint Chief Complaint seen in er 44-year-old female presenting to the emergency department 05/26 with abdominal pain in the epigastrium. She has a history of a perforated stomach ulcer in 2019. It was sudden onset. The pain is nonradiating. It is sharp shooting and without alleviating factors. denies vomiting but is nauseous. Review of systems is negative for chest pain shortness of breath vomiting fevers chills. Negative for new rashes. All other review of systems negative. presented to the emergency department 05/26 with epigastric abdominal pain. Afebrile with mild tachycardia. ct c/w gastritis elevated alk phos with minimally elevated ALT. Urinalysis shows trace leukoesterase with few bacteria and many squamous cells. Not strongly suggestive of UTI. Her pain is mildly improved however given her significant medical history and severity of pain will admit her for iv protonix, gi consult, known hx bleeding ulcers s/p closure perforated ulcer, IR drainage fluid collection now c/o pain Past Medical History Past Medical History Past Medical History Past Medical History Past Medical History: CHF, COPD, DVT, High Cholesterol, Hypertension, Kidney Stone, [place], P.U.D., Seizure, UTI, Other Additional Past Medical Histor: Pulmonary Embolism, Lupus, Bleeding Gastric Ulcers Past Surgical History: Appendectomy, Cholecystectomy, , Hysterectomy, Tonsillectomy, Other Additional Past Surgical Histo: IVC filter placed and removed,03/2020 Smoking Status: Former Smoker Alcohol Use: Rarely Drug Use: None fhx obesity Cardiovascular: No pertinent hx Pulmonary: COPD, Pulmonary embolus GI: GERD, GI bleed, Gastritis, Peptic Ulcer disease, Other Heme/Onc: No pertinent hx Hepatobiliary: No pertinent hx Psych: No pertinent hx Musculoskeletal: low back pain Rheumatologic: Other Endocrine: No pertinent hx Past Surgical History Past Surgical History: Appendectomy, Cholecystectomy, , Hysterectomy, Other Family History Family History: Alzheimer's Disease, Hypertension Social History Smoke: Quit ALCOHOL: rare Drugs: None Current Problem List Problem List Problems Medical Problems: (1) Abdominal pain Status: Acute Current Medications Current Medications Current Medications Sodium Chloride 1,000 ml @ 1,000 mls/hr 1X ONCE IV Last administered on 05/26/20at 18:12; Start 05/26/20 at 17:15; Stop 05/26/20 at 18:14; Status DC Ondansetron HCl (Zofran) 4 mg 1X ONCE IV Last administered on 05/26/20at 18:12; Start 05/26/20 at 17:15; Stop 05/26/20 at 17:16; Status DC Hydromorphone HCl (Dilaudid) 0.5 mg PRN Q1HR PRN IV/SQ PAIN GREATER THAN 3/10 Last administered on 05/26/20at 22:26; Start 05/26/20 at 17:15; Stop 05/26/20 at 22:26; Status DC Famotidine (Pepcid Vial) 20 mg 1X ONCE IVP Last administered on 05/26/20at 19:38; Start 05/26/20 at 20:00; Stop 05/26/20 at 20:01; Status DC Fentanyl Citrate (Fentanyl 2ml Vial) 50 mcg PRN Q2HRS PRN IV PAIN Last administered on 05/27/20at 01:49; Start 05/26/20 at 19:30; Stop 05/27/20 at 01:49; Status DC Sodium Chloride 1,000 ml @ 125 mls/hr Q8H IV Last administered on 05/26/20at 20:55; Start 05/26/20 at 19:30; Stop 05/26/20 at 23:29; Status DC Hydromorphone HCl (Dilaudid) 0.5 mg PRN Q2HRS PRN IV SEVERE PAIN 7-10 Last administered on 05/27/20at 08:41; Start 05/27/20 at 02:00 Active Scripts Active Culturelle (Lactobacillus Rhamnosus Gg) 1 Each Cap.sprink 1 Cap PO BID 30 Days Dok (Docusate Sodium) 100 Mg Capsule 100 Mg PO PRN BID PRN 30 Days Zofran Odt (Ondansetron) 4 Mg Tab.rapdis 1 Tab SL Q8HRS PRN Reported Protonix (Pantoprazole Sodium) 40 Mg Tablet.dr 40 Mg PO BIDAC Percocet 5-325 Mg Tablet (Oxycodone/Acetaminophen) 1 Each Tablet 1 Tab PO Q4HRS PRN Keppra (Levetiracetam) 500 Mg Tablet 500 Mg PO BID Carafate (Sucralfate) 1 Gm Tablet 1 Tab PO QID 30 Days Lasix (Furosemide) 40 Mg Tablet 40 Mg PO BID Clonazepam 1 Mg Tablet 0.5 Mg PO PRN Q6HRS PRN Risperdal (Risperidone) 4 Mg Tablet 5 Mg PO BID Prozac (Fluoxetine Hcl) 40 Mg Capsule 1 Cap PO DAILY Allergies Allergies: Coded Allergies: Iodine and Iodide Containing Produc (Verified Allergy, Severe, throat swelling to IV contrast, 04/19/20) sulfamethoxazole (Verified Allergy, Severe, SWELLING,TROUBLE BREATHING, 05/27/20) trimethoprim (Verified Allergy, Severe, SWELLING,TROUBLE BREATHING, 05/27/20) Cephalexin Monohydrate (Verified Allergy, Intermediate, SWELLING,TROUBLE BREATHING, 04/16/20) NSAIDS (Non-Steroidal Anti-Inflamma (Verified Allergy, Intermediate, 03/18/20) TORADOL [place] Penicillins (Verified Allergy, Intermediate, SWELLING,TROUBLE BREATHING, 04/16/20) iodine (Verified Allergy, Intermediate, 03/18/20) lidocaine (Verified Allergy, Intermediate, 03/18/20) prochlorperazine edisylate (Verified Allergy, Intermediate, 03/18/20) prochlorperazine maleate (Verified Allergy, Intermediate, 03/18/20) ROS Review of System 14 PT ROS OTHERWISE NEG General: No: Chills, Night Sweats, Fatigue, Malaise, Appetite, Other PSYCHOLOGICAL ROS: YES: Anxiety, Depression, Mood Swings Eyes: No Blurry vision, No Decreased vision, No Double vision, No Dry eyes, No Excessive tearing, No Eye Pain, No Itchy Eyes, No Loss of vision, No Photophobi a, No Scotomata, No Uses contacts, No Uses glasses, No Other Hematological and Lymphatic: YES: Bleeding Problems; No: Blood Clots, Blood Transfusions, Brusing, Night Sweats, Pallor, Swollen Lymph Nodes, Other Breast: No New/Changing Breast Lumps, No Nipple changes, No Nipple discharge, No Other Respiratory: No: Cough, Hemoptysis, Orthopnea, Pleuritic Pain, Shortness of breath, SOB with excertion, Sputum Changes, Stridor, Tachypnea, Wheezing, Other Cardiovascular: No Chest Pain, No Palpitations, No Orthopnea, No Paroxysmal N oc. Dyspnea, No Edema, No Lt Headedness, No Other Gastrointestinal: Yes Nausea, Yes Abdominal Pain Musculoskeletal: No Gait Disturbance, No Joint Pain, No Joint Stiffness, No Joint Swelling, No Muscle Pain, No Muscular Weakness, No Pain In:, No Swelling In:, No Other Neurological: No Behavorial Changes, No Bowel/Bladder ControlChng, No Confusion, No Dizziness, No Gait Disturbance, No Headaches, No Impaired Coord/balance, No Memory Loss, No Numbness/Tingling, No Seizures, No Speech Problems, No Tremors, No Visual Changes, No Weakness, No Other Skin: No Dry Skin, No Eczema, No Hair Changes, No Lumps, No Mole Changes, No Mottling, No Nail Changes, No Pruritus, No Rash, No Skin Lesion Changes, No Other, No Acne Physical Exam Physical Exam Constitutional: Well developed, well nourished, no acute distress, non-toxic appearance. [] HENT: Normocephalic, atraumatic, bilateral external ears normal, oropharynx moist, no oral exudates, nose normal. [] Eyes: PERRLA, EOMI, conjunctiva normal, no discharge. [] Neck: Normal range of motion, no tenderness, supple, no stridor. [] Cardiovascular:Heart rate regular rhythm, no murmur [] Lungs & Thorax: Bilateral breath sounds clear to auscultation [] Abdomen: Bowel sounds normal, soft, no tenderness, no masses, no pulsatile masses. No rebound tenderness or guarding. Negative McBurney's point. Negative Yuan sign. Skin: Warm, dry, no erythema, no rash. [] Back: No tenderness, no CVA tenderness. [] Extremities: No tenderness, no cyanosis, no clubbing, ROM intact, no edema. [] Neurologic: Alert and oriented X 3, normal motor function, normal sensory function, no focal deficits noted. [] Psychologic: Affect ANXIOUS, judgment FAIR , mood normal. [] General: Alert, Oriented X3, Cooperative, No acute distress HEENT: Atraumatic, PERRLA, EOMI, Mucous membr. moist/pink Lungs: Clear to auscultation, Normal air movement Heart: RRR, no thrills Breasts: Not examined Abdomen: Soft Rectal Exam: not examined PELVIC: Examination not indicated Extremities: No cyanosis, No edema Skin: No significant lesion Neuro: Normal speech, Strength at 5/5 X4 ext, Cranial nerves 3-12 NL Psych/Mental Status: Mental status NL, Mood NL Vitals Vitals Vital Signs Date Time Temp Pulse Resp B/P (MAP) Pulse Ox O2 Delivery O2 Flow Rate FiO2 05/27/20 09:39 98 Room Air 05/27/20 07:00 97.5 61 18 95/51 (66) 97.5 05/27/20 03:47 2.0 Labs Labs Laboratory Tests Test 05/26/20 16:34 05/26/20 17:55 05/27/20 06:55 Urine Collection Type Unknown Urine Color Yellow Urine Clarity Clear Urine pH 5.5 (<5.0-8.0) Urine Specific [place] >=1.030 (1.000-1.030) Urine Protein Negative mg/dL (NEG-TRACE) Urine Glucose (UA) Negative mg/dL (NEG) Urine Ketones (Stick) Negative mg/dL (NEG) Urine Blood Negative (NEG) Urine Nitrite Negative (NEG) Urine Bilirubin Small (NEG) Urine Urobilinogen Dipstick 0.2 mg/dL (0.2 mg/dL) Urine Leukocyte Esterase Trace (NEG) Urine RBC 0 /HPF (0-2) Urine WBC 5-10 /HPF (0-4) Urine Squamous Epithelial Cells Many /LPF Urine Bacteria Few /HPF (0-FEW) Urine Hyaline Casts Many /HPF Urine Mucus Marked /LPF White Blood Count 8.4 x10^3/uL (4.0-11.0) 5.8 x10^3/uL (4.0-11.0) Red Blood Count 3.94 x10^6/uL (3.50-5.40) 3.59 x10^6/uL (3.50-5.40) Hemoglobin 12.3 g/dL (12.0-15.5) 10.9 g/dL (12.0-15.5) Hematocrit 35.2 % (36.0-47.0) 32.8 % (36.0-47.0) Mean Corpuscular Volume 89 fL (79-100) 91 fL (79-100) Mean Corpuscular Hemoglobin 31 pg (25-35) 30 pg (25-35) Mean Corpuscular Hemoglobin Concent 35 g/dL (31-37) 33 g/dL (31-37) Red Cell Distribution Width 16.4 % (11.5-14.5) 16.6 % (11.5-14.5) Platelet Count 544 x10^3/uL (140-400) 444 x10^3/uL (140-400) Neutrophils (%) (Auto) 48 % (31-73) 40 % (31-73) Lymphocytes (%) (Auto) 38 % (24-48) 45 % (24-48) Monocytes (%) (Auto) 8 % (0-9) 9 % (0-9) Eosinophils (%) (Auto) 4 % (0-3) 5 % (0-3) Basophils (%) (Auto) 2 % (0-3) 1 % (0-3) Neutrophils # (Auto) 4.0 x10^3/uL (1.8-7.7) 2.3 x10^3/uL (1.8-7.7) Lymphocytes # (Auto) 3.2 x10^3/uL (1.0-4.8) 2.6 x10^3/uL (1.0-4.8) Monocytes # (Auto) 0.7 x10^3/uL (0.0-1.1) 0.5 x10^3/uL (0.0-1.1) Eosinophils # (Auto) 0.4 x10^3/uL (0.0-0.7) 0.3 x10^3/uL (0.0-0.7) Basophils # (Auto) 0.1 x10^3/uL (0.0-0.2) 0.0 x10^3/uL (0.0-0.2) Sodium Level 136 mmol/L (136-145) 141 mmol/L (136-145) Potassium Level 4.4 mmol/L (3.5-5.1) 3.8 mmol/L (3.5-5.1) Chloride Level 104 mmol/L (98-107) 107 mmol/L (98-107) Carbon Dioxide Level 18 mmol/L (21-32) 23 mmol/L (21-32) Anion Gap 14 (6-14) 11 (6-14) Blood Urea Nitrogen 18 mg/dL (7-20) 15 mg/dL (7-20) Creatinine 1.0 mg/dL (0.6-1.0) 0.8 mg/dL (0.6-1.0) Estimated GFR (Cockcroft-Gault) 60.2 77.9 BUN/Creatinine Ratio 18 (6-20) Glucose Level 90 mg/dL (70-99) 89 mg/dL (70-99) Calcium Level 9.1 mg/dL (8.5-10.1) 8.6 mg/dL (8.5-10.1) Total Bilirubin 0.2 mg/dL (0.2-1.0) Aspartate Amino Transf (AST/SGOT) 32 U/L (15-37) Alanine Aminotransferase (ALT/SGPT) 61 U/L (14-59) Alkaline Phosphatase 126 U/L (46-116) Total Protein 8.1 g/dL (6.4-8.2) Albumin 3.8 g/dL (3.4-5.0) Albumin/Globulin Ratio 0.9 (1.0-1.7) Lipase 55 U/L (73-393) Laboratory Tests Test 05/26/20 16:34 05/26/20 17:55 05/27/20 06:55 Urine Collection Type Unknown Urine Color Yellow Urine Clarity Clear Urine pH 5.5 (<5.0-8.0) Urine Specific [place] >=1.030 (1.000-1.030) Urine Protein Negative mg/dL (NEG-TRACE) Urine Glucose (UA) Negative mg/dL (NEG) Urine Ketones (Stick) Negative mg/dL (NEG) Urine Blood Negative (NEG) Urine Nitrite Negative (NEG) Urine Bilirubin Small (NEG) Urine Urobilinogen Dipstick 0.2 mg/dL (0.2 mg/dL) Urine Leukocyte Esterase Trace (NEG) Urine RBC 0 /HPF (0-2) Urine WBC 5-10 /HPF (0-4) Urine Squamous Epithelial Cells Many /LPF Urine Bacteria Few /HPF (0-FEW) Urine Hyaline Casts Many /HPF Urine Mucus Marked /LPF White Blood Count 8.4 x10^3/uL (4.0-11.0) 5.8 x10^3/uL (4.0-11.0) Red Blood Count 3.94 x10^6/uL (3.50-5.40) 3.59 x10^6/uL (3.50-5.40) Hemoglobin 12.3 g/dL (12.0-15.5) 10.9 g/dL (12.0-15.5) Hematocrit 35.2 % (36.0-47.0) 32.8 % (36.0-47.0) Mean Corpuscular Volume 89 fL (79-100) 91 fL (79-100) Mean Corpuscular Hemoglobin 31 pg (25-35) 30 pg (25-35) Mean Corpuscular Hemoglobin Concent 35 g/dL (31-37) 33 g/dL (31-37) Red Cell Distribution Width 16.4 % (11.5-14.5) 16.6 % (11.5-14.5) Platelet Count 544 x10^3/uL (140-400) 444 x10^3/uL (140-400) Neutrophils (%) (Auto) 48 % (31-73) 40 % (31-73) Lymphocytes (%) (Auto) 38 % (24-48) 45 % (24-48) Monocytes (%) (Auto) 8 % (0-9) 9 % (0-9) Eosinophils (%) (Auto) 4 % (0-3) 5 % (0-3) Basophils (%) (Auto) 2 % (0-3) 1 % (0-3) Neutrophils # (Auto) 4.0 x10^3/uL (1.8-7.7) 2.3 x10^3/uL (1.8-7.7) Lymphocytes # (Auto) 3.2 x10^3/uL (1.0-4.8) 2.6 x10^3/uL (1.0-4.8) Monocytes # (Auto) 0.7 x10^3/uL (0.0-1.1) 0.5 x10^3/uL (0.0-1.1) Eosinophils # (Auto) 0.4 x10^3/uL (0.0-0.7) 0.3 x10^3/uL (0.0-0.7) Basophils # (Auto) 0.1 x10^3/uL (0.0-0.2) 0.0 x10^3/uL (0.0-0.2) Sodium Level 136 mmol/L (136-145) 141 mmol/L (136-145) Potassium Level 4.4 mmol/L (3.5-5.1) 3.8 mmol/L (3.5-5.1) Chloride Level 104 mmol/L (98-107) 107 mmol/L (98-107) Carbon Dioxide Level 18 mmol/L (21-32) 23 mmol/L (21-32) Anion Gap 14 (6-14) 11 (6-14) Blood Urea Nitrogen 18 mg/dL (7-20) 15 mg/dL (7-20) Creatinine 1.0 mg/dL (0.6-1.0) 0.8 mg/dL (0.6-1.0) Estimated GFR (Cockcroft-Gault) 60.2 77.9 BUN/Creatinine Ratio 18 (6-20) Glucose Level 90 mg/dL (70-99) 89 mg/dL (70-99) Calcium Level 9.1 mg/dL (8.5-10.1) 8.6 mg/dL (8.5-10.1) Total Bilirubin 0.2 mg/dL (0.2-1.0) Aspartate Amino Transf (AST/SGOT) 32 U/L (15-37) Alanine Aminotransferase (ALT/SGPT) 61 U/L (14-59) Alkaline Phosphatase 126 U/L (46-116) Total Protein 8.1 g/dL (6.4-8.2) Albumin 3.8 g/dL (3.4-5.0) Albumin/Globulin Ratio 0.9 (1.0-1.7) Lipase 55 U/L (73-393) Images Images One or more of the following individualized dose reduction techniques were utilized for this study: 1. Automated exposure control. 2. Adjustment of the mA and/or kV according to patient size. 3. Use of iterative reconstruction technique. FINDINGS: Comparison is made to a CT scan of the abdomen and pelvis dated 11/29/2019. The heart is borderline enlarged. The thoracic aorta tapers normally. Probably reactive axillary and mediastinal lymph nodes are seen which measure 1 to 1.5 cm in size. Mild emphysematous changes are seen involving both lungs. Dependent subsegmental atelectasis is seen involving both lower lobes. No area of consolidation is seen. No pneumothorax or pleural effusion is noted. The liver, spleen, pancreas and adrenal glands are within normal limits. Nonobstructing calculi are seen involving both kidneys. These measure 2 to 3 mm in size. An IVC filter is noted in place. The abdominal aorta tapers normally. Surgical clips are seen within the gallbladder fossa consistent with a cholecystectomy. There is no evidence of bowel obstruction. Extraluminal collections of air are seen throughout the upper abdomen. Small to moderate amount of pneumoperitoneum is seen. These findings are concerning for a bowel perforation. Thinning of the anterior superior aspect of the antrum of the stomach is noted. Increased density which may represent recently ingested [id number] medication is seen in this area which appears to be extravasating from the antrum of the stomach. This appears to be the most likely source of the bowel perforation and likely reflects an underlying gastric ulcer. Images through the pelvis demonstrate the urinary bladder distended with urine. A small amount amount free fluid is seen within the pelvis. No adnexal mass is seen. Minimal S-shaped curvature of the thoracolumbar spine is seen. IMPRESSION: Pneumoperitoneum is seen within the abdomen concerning for a bowel perforation. The source of perforation appears to be in the region of the antrum of the stomach probably due to an underlying gastric ulcer as discussed above. These findings were discussed with Maryse Patricio. Electronically signed by: Blu Blair MD (03/14/2020 8:57 PM) [id number] DICTATED and SIGNED BY: BLU BLAIR MD DATE: 03/14/202056 CT abdomen without contrast HISTORY: Dizziness surgical incision. COMPARISON: CT abdomen and pelvis without contrast March 24, 2020 Abdomen findings: 30 mL oral iodine Omnipaque 240 intravenous contrast was administered prior to the exam. Mild right pleural effusion and mild right lower lobe volume loss with heterogeneous dependent atelectasis/infiltrate. Discoid atelectasis at the right middle lobe. Minimal dependent left lower lobe atelectasis. Midline laparotomy and surgical repair of the gastric antrum again demonstrated. There is prominent wall thickening of the gastric antrum again demonstrated. Along the distal gastric antrum and duodenal bulb below the left hepatic lobe again demonstrated is a loculated 5 cm fluid collection with small bubble of air, and surrounding edema, there is no extravasation of oral contrast into this collection evident. No bowel obstruction evident. IVC filter. Small renal calculi. Adrenals, pancreas, liver unremarkable. Cholecystectomy. IMPRESSION: 1. 5 cm loculated fluid collection at the right upper quadrant along the wall of the distal gastric antrum and duodenal bulb below the left hepatic lobe again demonstrated with small bubble of air within the collection. There is no extravasation of oral contrast from the stomach or small bowel into the collection to confirm a gastric leak. This could be a walled off abscess or postsurgical seroma. A small intermittent leak at the stomach without extravasation of oral contrast at time of image acquisition is a secondary consideration. 2. Mild right pleural effusion and right lower lobe atelectasis/infiltrate again demonstrated. Exposure: One or more of the following individualized dose reduction techniques were utilized for this examination: 1. Automated exposure control 2. Adjustment of the mA and/or kV according to patient size 3. Use of iterative reconstruction technique Electronically signed by: Julian Aguilar MD (03/24/2020 11:35 PM) [facility] [place] Exam: CT of abdomen and pelvis without contrast INDICATION: Abdominal pain TECHNIQUE: Sequential axial images through the abdomen and pelvis obtained without IV contrast. Sagittal and coronal reformatted images were reconstructed from the axial data and reviewed. Comparisons: 04/26/2020 FINDINGS: Heart size is normal. No pericardial effusion. Visualized lung bases are clear. No pleural effusion. Evaluation of solid organs is limited secondary to noncontrast technique. Liver, spleen, pancreas and adrenals are unremarkable. Gallbladder surgically absent. Several nonobstructing renal calculi are noted bilaterally. No ureteral calculi are identified. No perinephric inflammation or hydronephrosis. Bladder is decompressed not well evaluated. Uterus is absent. No abnormal adnexal mass. Large and small bowel are unremarkable. Appendix is not identified. No free intra-abdominal air or fluid. No obstruction. There is mild fat stranding surrounding the gastric body. Abdominal aorta has a normal course and caliber. IVC filter is noted. No enlarged abdominal lymph nodes are identified. No suspicious osseous lesions or acute acute fractures. IMPRESSION: 1. Mild gastric wall thickening with adjacent fat stranding. Correlate for gastritis. 2. Bilateral nonobstructing renal calculi. Exposure: One or more of the following in the visualized dose reduction techniques were utilized for this examination: 1. Automated exposure control 2. Adjustment of the MA and/or KV according to patient size 3. Use of iterative of reconstructive technique Electronically signed by: Sneha Qureshi MD (05/26/2020 5:48 PM) [id number] DICTATED and SIGNED BY: SNEHA QURESHI MD VTE Prophylaxis Ordered VTE Prophylaxis Devices: Yes VTE Pharmacological Prophylaxi: No Assessment/Plan Assessment/Plan IMPRESSION: 1. Abdominal pain 2. Mild gastric wall thickening with adjacent fat stranding. Correlate for gastritis. 05/26 s/p closure perforated ulcer, IR drainage fluid collection now with normal CT but c/o pain 03/29 3. Bilateral nonobstructing renal calculi. 4. Abdominal pain - Perforated gastric ulcer status post repair of perforated ulcer with inderjit patch now with recurrent pain. Will cont pain control. Has h/o drug seeking behavior documented, will minimize IV pain medications, 5. Leukocytosis - mild, will trend 6. hx Diffuse peritonitis - improved from prior 7. Exploratory laparotomy on 03/15/2020, repair of perforated ulcer with Inderjit patch. 8. Antibiotic allergies, all cause swelling and trouble breathing. 9. Transaminitis.10.History of lupus. 10.Normocytic Anemia 11.Multiple abx allergies: PCN/Keflex/Bactrim - swelling and trouble breathing 12.Bilateral nephrolithiasis, nonobstructive 13.Schizophrenia/bipolar disorder 14.Anxiety/depression 15.History of Lupus 16.History of CHF 17 history of COPD 18.Prior Smoker plan admit iv protonix GI CONSULT SURGERY CONSULT NPO IV FLUID SUPPORT dvt prophylaxis 77 min pt exam, chart review, > 50% of time spent with exam, chart review, pt care coordination Justicifation of Admission Dx: Justifications for Admission: Justification of Admission Dx: Yes BETZY BORDEN MD May 27, 2020 11:11
[2020-05-27] MEDS ORDERED: SODIUM PHOSPHATES 19/7GM 133 ML ENEMA. PR PRN (11:30)
[2020-05-27] MEDS ORDERED: DOCUSATE SODIUM 100 MG CAPSULE. PO PRN (11:30)
[2020-05-27] MEDS ORDERED: ACETAMINOPHEN 325 MG TABLET. PO PRN (11:30)
[2020-05-27] MEDS ORDERED: 0.9 % SODIUM CHLORIDE 10 ML DISP.SYRIN. IV PRN (11:30)
[2020-05-27] MEDS ORDERED: ALBUTEROL SULFATE 2.5 MG/3 ML NEBU. NEB PRN (11:30)
[2020-05-27] MEDS ORDERED: guaiFENesin ORAL 200 MG/10 ML LIQUID. PO PRN (11:30)
[2020-05-27] MEDS: PANTOPRAZOLE IV PUSH 40 MG VIAL. IVP SCH (11:46)
[2020-05-27] MEDS: IV NORMAL SALINE 1000ML BAG 1,000 ML IV SCH (11:50)
[2020-05-27] MEDS: ENOXAPARIN 40 MG/0.4 ML SYRINGE. SQ SCH (11:52)
--- NOTE | 2020-05-27 13:48 | PDOC ---
G I PROGRESS NOTE Reason for Follow-up ABd pain/hx perforated ulcer Subjective Pain worsening Physical Exam Lungs decreased BS CV S1 S2 ABD hypoactve BS, distended, epigastric tenderness to palpation Review of Relevant I have reviewed the following items sasha (where applicable) has been applied. Labs Laboratory Tests Test 05/26/20 16:34 05/26/20 17:55 05/27/20 06:55 Urine Collection Type Unknown Urine Color Yellow Urine Clarity Clear Urine pH 5.5 (<5.0-8.0) Urine Specific [place] >=1.030 (1.000-1.030) Urine Protein Negative mg/dL (NEG-TRACE) Urine Glucose (UA) Negative mg/dL (NEG) Urine Ketones (Stick) Negative mg/dL (NEG) Urine Blood Negative (NEG) Urine Nitrite Negative (NEG) Urine Bilirubin Small (NEG) Urine Urobilinogen Dipstick 0.2 mg/dL (0.2 mg/dL) Urine Leukocyte Esterase Trace (NEG) Urine RBC 0 /HPF (0-2) Urine WBC 5-10 /HPF (0-4) Urine Squamous Epithelial Cells Many /LPF Urine Bacteria Few /HPF (0-FEW) Urine Hyaline Casts Many /HPF Urine Mucus Marked /LPF White Blood Count 8.4 x10^3/uL (4.0-11.0) 5.8 x10^3/uL (4.0-11.0) Red Blood Count 3.94 x10^6/uL (3.50-5.40) 3.59 x10^6/uL (3.50-5.40) Hemoglobin 12.3 g/dL (12.0-15.5) 10.9 g/dL (12.0-15.5) Hematocrit 35.2 % (36.0-47.0) 32.8 % (36.0-47.0) Mean Corpuscular Volume 89 fL (79-100) 91 fL (79-100) Mean Corpuscular Hemoglobin 31 pg (25-35) 30 pg (25-35) Mean Corpuscular Hemoglobin Concent 35 g/dL (31-37) 33 g/dL (31-37) Red Cell Distribution Width 16.4 % (11.5-14.5) 16.6 % (11.5-14.5) Platelet Count 544 x10^3/uL (140-400) 444 x10^3/uL (140-400) Neutrophils (%) (Auto) 48 % (31-73) 40 % (31-73) Lymphocytes (%) (Auto) 38 % (24-48) 45 % (24-48) Monocytes (%) (Auto) 8 % (0-9) 9 % (0-9) Eosinophils (%) (Auto) 4 % (0-3) 5 % (0-3) Basophils (%) (Auto) 2 % (0-3) 1 % (0-3) Neutrophils # (Auto) 4.0 x10^3/uL (1.8-7.7) 2.3 x10^3/uL (1.8-7.7) Lymphocytes # (Auto) 3.2 x10^3/uL (1.0-4.8) 2.6 x10^3/uL (1.0-4.8) Monocytes # (Auto) 0.7 x10^3/uL (0.0-1.1) 0.5 x10^3/uL (0.0-1.1) Eosinophils # (Auto) 0.4 x10^3/uL (0.0-0.7) 0.3 x10^3/uL (0.0-0.7) Basophils # (Auto) 0.1 x10^3/uL (0.0-0.2) 0.0 x10^3/uL (0.0-0.2) Sodium Level 136 mmol/L (136-145) 141 mmol/L (136-145) Potassium Level 4.4 mmol/L (3.5-5.1) 3.8 mmol/L (3.5-5.1) Chloride Level 104 mmol/L (98-107) 107 mmol/L (98-107) Carbon Dioxide Level 18 mmol/L (21-32) 23 mmol/L (21-32) Anion Gap 14 (6-14) 11 (6-14) Blood Urea Nitrogen 18 mg/dL (7-20) 15 mg/dL (7-20) Creatinine 1.0 mg/dL (0.6-1.0) 0.8 mg/dL (0.6-1.0) Estimated GFR (Cockcroft-Gault) 60.2 77.9 BUN/Creatinine Ratio 18 (6-20) Glucose Level 90 mg/dL (70-99) 89 mg/dL (70-99) Calcium Level 9.1 mg/dL (8.5-10.1) 8.6 mg/dL (8.5-10.1) Total Bilirubin 0.2 mg/dL (0.2-1.0) Aspartate Amino Transf (AST/SGOT) 32 U/L (15-37) Alanine Aminotransferase (ALT/SGPT) 61 U/L (14-59) Alkaline Phosphatase 126 U/L (46-116) Total Protein 8.1 g/dL (6.4-8.2) Albumin 3.8 g/dL (3.4-5.0) Albumin/Globulin Ratio 0.9 (1.0-1.7) Lipase 55 U/L (73-393) Laboratory Tests Test 05/26/20 16:34 05/26/20 17:55 05/27/20 06:55 Urine Collection Type Unknown Urine Color Yellow Urine Clarity Clear Urine pH 5.5 (<5.0-8.0) Urine Specific [place] >=1.030 (1.000-1.030) Urine Protein Negative mg/dL (NEG-TRACE) Urine Glucose (UA) Negative mg/dL (NEG) Urine Ketones (Stick) Negative mg/dL (NEG) Urine Blood Negative (NEG) Urine Nitrite Negative (NEG) Urine Bilirubin Small (NEG) Urine Urobilinogen Dipstick 0.2 mg/dL (0.2 mg/dL) Urine Leukocyte Esterase Trace (NEG) Urine RBC 0 /HPF (0-2) Urine WBC 5-10 /HPF (0-4) Urine Squamous Epithelial Cells Many /LPF Urine Bacteria Few /HPF (0-FEW) Urine Hyaline Casts Many /HPF Urine Mucus Marked /LPF White Blood Count 8.4 x10^3/uL (4.0-11.0) 5.8 x10^3/uL (4.0-11.0) Red Blood Count 3.94 x10^6/uL (3.50-5.40) 3.59 x10^6/uL (3.50-5.40) Hemoglobin 12.3 g/dL (12.0-15.5) 10.9 g/dL (12.0-15.5) Hematocrit 35.2 % (36.0-47.0) 32.8 % (36.0-47.0) Mean Corpuscular Volume 89 fL (79-100) 91 fL (79-100) Mean Corpuscular Hemoglobin 31 pg (25-35) 30 pg (25-35) Mean Corpuscular Hemoglobin Concent 35 g/dL (31-37) 33 g/dL (31-37) Red Cell Distribution Width 16.4 % (11.5-14.5) 16.6 % (11.5-14.5) Platelet Count 544 x10^3/uL (140-400) 444 x10^3/uL (140-400) Neutrophils (%) (Auto) 48 % (31-73) 40 % (31-73) Lymphocytes (%) (Auto) 38 % (24-48) 45 % (24-48) Monocytes (%) (Auto) 8 % (0-9) 9 % (0-9) Eosinophils (%) (Auto) 4 % (0-3) 5 % (0-3) Basophils (%) (Auto) 2 % (0-3) 1 % (0-3) Neutrophils # (Auto) 4.0 x10^3/uL (1.8-7.7) 2.3 x10^3/uL (1.8-7.7) Lymphocytes # (Auto) 3.2 x10^3/uL (1.0-4.8) 2.6 x10^3/uL (1.0-4.8) Monocytes # (Auto) 0.7 x10^3/uL (0.0-1.1) 0.5 x10^3/uL (0.0-1.1) Eosinophils # (Auto) 0.4 x10^3/uL (0.0-0.7) 0.3 x10^3/uL (0.0-0.7) Basophils # (Auto) 0.1 x10^3/uL (0.0-0.2) 0.0 x10^3/uL (0.0-0.2) Sodium Level 136 mmol/L (136-145) 141 mmol/L (136-145) Potassium Level 4.4 mmol/L (3.5-5.1) 3.8 mmol/L (3.5-5.1) Chloride Level 104 mmol/L (98-107) 107 mmol/L (98-107) Carbon Dioxide Level 18 mmol/L (21-32) 23 mmol/L (21-32) Anion Gap 14 (6-14) 11 (6-14) Blood Urea Nitrogen 18 mg/dL (7-20) 15 mg/dL (7-20) Creatinine 1.0 mg/dL (0.6-1.0) 0.8 mg/dL (0.6-1.0) Estimated GFR (Cockcroft-Gault) 60.2 77.9 BUN/Creatinine Ratio 18 (6-20) Glucose Level 90 mg/dL (70-99) 89 mg/dL (70-99) Calcium Level 9.1 mg/dL (8.5-10.1) 8.6 mg/dL (8.5-10.1) Total Bilirubin 0.2 mg/dL (0.2-1.0) Aspartate Amino Transf (AST/SGOT) 32 U/L (15-37) Alanine Aminotransferase (ALT/SGPT) 61 U/L (14-59) Alkaline Phosphatase 126 U/L (46-116) Total Protein 8.1 g/dL (6.4-8.2) Albumin 3.8 g/dL (3.4-5.0) Albumin/Globulin Ratio 0.9 (1.0-1.7) Lipase 55 U/L (73-393) Medications Current Medications Sodium Chloride 1,000 ml @ 1,000 mls/hr 1X ONCE IV Last administered on 05/26/20at 18:12; Start 05/26/20 at 17:15; Stop 05/26/20 at 18:14; Status DC Ondansetron HCl (Zofran) 4 mg 1X ONCE IV Last administered on 05/26/20at 18:12; Start 05/26/20 at 17:15; Stop 05/26/20 at 17:16; Status DC Hydromorphone HCl (Dilaudid) 0.5 mg PRN Q1HR PRN IV/SQ PAIN GREATER THAN 3/10 Last administered on 05/26/20at 22:26; Start 05/26/20 at 17:15; Stop 05/26/20 at 22:26; Status DC Famotidine (Pepcid Vial) 20 mg 1X ONCE IVP Last administered on 05/26/20at 19:38; Start 05/26/20 at 20:00; Stop 05/26/20 at 20:01; Status DC Fentanyl Citrate (Fentanyl 2ml Vial) 50 mcg PRN Q2HRS PRN IV PAIN Last administered on 05/27/20at 01:49; Start 05/26/20 at 19:30; Stop 05/27/20 at 01:49; Status DC Sodium Chloride 1,000 ml @ 125 mls/hr Q8H IV Last administered on 05/26/20at 20:55; Start 05/26/20 at 19:30; Stop 05/26/20 at 23:29; Status DC Hydromorphone HCl (Dilaudid) 0.5 mg PRN Q2HRS PRN IV SEVERE PAIN 7-10 Last administered on 05/27/20at 11:49; Start 05/27/20 at 02:00 Pantoprazole Sodium (PROTONIX VIAL for IV PUSH) 40 mg DAILYAC IVP Last administered on 05/27/20at 11:46; Start 05/27/20 at 11:30 Sodium Chloride (Normal Saline Flush) 3 ml QSHIFT PRN IV AFTER MEDS AND BLOOD DRAWS; Start 05/27/20 at 11:30 Sodium Chloride 1,000 ml @ 70 mls/hr [id number] IV Last administered on 05/27/20at 11:50; Start 05/27/20 at 11:25 Ondansetron HCl (Zofran) 4 mg PRN Q4HRS PRN IV NAUSEA/VOMITING; Start 05/27/20 at 11:30 Acetaminophen (Tylenol) 650 mg PRN Q4HRS PRN PO TEMP OVER 100.4F OR MILD PAIN; Start 05/27/20 at 11:30 Sodium Monofluorophosphate (Fleet Adult) 133 ml PRN DAILY PRN [place] CONSTIPATION; Start 05/27/20 at 11:30 Docusate Sodium (Colace) 100 mg PRN BID PRN PO HARD STOOLS; Start 05/27/20 at 11:30 Albuterol Sulfate (Ventolin Neb Soln) 2.5 mg PRN Q4HRS PRN NEB SHORTNESS OF BREATH; Start 05/27/20 at 11:30 Guaifenesin (Robitussin) 200 mg PRN Q4HRS PRN PO COUGH; Start 05/27/20 at 11:30 Lorazepam (Ativan) 0.5 mg PRN Q4HRS PRN PO ANXIETY / AGITATION; Start 05/27/20 at 11:30 Enoxaparin Sodium (Lovenox 40mg Syringe) 40 mg Q24H SQ Last administered on 05/27/20at 11:52; Start 05/27/20 at 12:00 Active Scripts Active Culturelle (Lactobacillus Rhamnosus Gg) 1 Each Cap.sprink 1 Cap PO BID 30 Days Dok (Docusate Sodium) 100 Mg Capsule 100 Mg PO PRN BID PRN 30 Days Zofran Odt (Ondansetron) 4 Mg Tab.rapdis 1 Tab SL Q8HRS PRN Reported Protonix (Pantoprazole Sodium) 40 Mg Tablet.dr 40 Mg PO BIDAC Percocet 5-325 Mg Tablet (Oxycodone/Acetaminophen) 1 Each Tablet 1 Tab PO Q4HRS PRN Keppra (Levetiracetam) 500 Mg Tablet 500 Mg PO BID Carafate (Sucralfate) 1 Gm Tablet 1 Tab PO QID 30 Days Lasix (Furosemide) 40 Mg Tablet 40 Mg PO BID Clonazepam 1 Mg Tablet 0.5 Mg PO PRN Q6HRS PRN Risperdal (Risperidone) 4 Mg Tablet 5 Mg PO BID Prozac (Fluoxetine Hcl) 40 Mg Capsule 1 Cap PO DAILY Vitals/I & O Vital Sign - Last 24 Hours 05/26/20 05/26/20 05/26/20 05/26/20 15:44 16:39 16:40 17:10 Temp 97.8 97.8 Pulse 105 94 88 Resp 14 B/P (MAP) 148/95 (112) 155/95 (115) 143/91 (108) 144/96 (112) Pulse Ox 97 98 100 O2 Delivery Room Air Room Air Room Air Room Air 05/26/20 05/26/20 05/26/20 05/26/20 17:32 18:02 18:13 18:32 Pulse 86 78 Resp 18 18 12 B/P (MAP) 136/92 (107) 114/70 (85) 104/55 (71) Pulse Ox 100 98 99 96 O2 Delivery Room Air Room Air Room Air Room Air 05/26/20 05/26/20 05/26/20 05/26/20 18:43 19:02 19:32 19:35 Pulse 76 76 Resp 18 28 23 19 B/P (MAP) 106/59 (75) 108/64 (79) Pulse Ox 96 98 96 97 O2 Delivery Room Air Room Air Room Air Room Air 05/26/20 05/26/20 05/26/20 05/26/20 20:02 20:05 20:44 20:54 Temp 98.0 98.0 Pulse 72 75 Resp 23 18 16 20 B/P (MAP) 107/55 (72) 119/83 (95) Pulse Ox 95 96 97 O2 Delivery Room Air Room Air Room Air Room Air 05/26/20 05/26/20 05/26/20 05/26/20 21:00 21:24 22:26 23:00 Temp 97.9 97.9 Pulse 71 Resp 20 20 16 B/P (MAP) 111/61 (78) Pulse Ox 96 O2 Delivery Room Air Room Air Room Air Room Air 05/27/20 05/27/20 05/27/20 05/27/20 01:49 03:00 03:17 03:47 Temp 97.9 97.9 Pulse 74 Resp 22 16 20 20 B/P (MAP) 91/46 (61) Pulse Ox 98 O2 Delivery Room Air Room Air Nasal Cannula Nasal Cannula O2 Flow Rate 2.0 2.0 05/27/20 05/27/20 05/27/20 05/27/20 06:06 07:00 08:00 08:38 Temp 97.5 97.5 Pulse 61 Resp 20 18 B/P (MAP) 95/51 (66) Pulse Ox 98 98 O2 Delivery Room Air Room Air Room Air 05/27/20 05/27/20 05/27/20 05/27/20 08:41 09:39 11:00 11:49 Temp 98.1 98.1 Pulse 88 Resp 18 B/P (MAP) 111/59 (76) Pulse Ox 98 98 96 98 O2 Delivery Room Air Room Air Room Air 05/27/20 12:08 Pulse Ox 98 O2 Delivery Room Air Intake and Output 05/26/20 05/26/20 05/27/20 15:00 23:00 07:00 Intake Total 0 ml 0 ml Balance 0 ml 0 ml Problem List Problems Medical Problems: (1) Abdominal pain Status: Acute Assessment Abd pain- with hx perforated ulcer, possible stranding/early leak on Ct scan Plan npo PPI therapy surgery consult possible gastrograffin contrast study to further assess pending surgery input Justicifation of Admission Dx: Justifications for Admission: Justification of Admission Dx: Yes MOHAN CAMPBELL MD May 27, 2020 13:48
[2020-05-27 15:00] VITALS: BP 103/61
[2020-05-27 19:00] VITALS: BP 92/60
[2020-05-27] MEDS: LORazepam 0.5 MG TABLET PO PRN (22:42)
[2020-05-27 23:00] VITALS: BP 100/68
[2020-05-28] MEDS: HYDROmorphone 2 MG/ML VIAL IV PRN ×7 (00:47→18:21)
[2020-05-28] MEDS: IV NORMAL SALINE 1000ML BAG 1,000 ML IV SCH ×2 (01:43→15:31)
[2020-05-28 03:00] VITALS: BP 118/69
[2020-05-28 07:59] VITALS: BP 126/79
[2020-05-28] MEDS: PANTOPRAZOLE IV PUSH 40 MG VIAL. IVP SCH (08:12)
--- NOTE | 2020-05-28 10:36 | PDOC2 ---
CONSULT Date of Consult Date of Consult DATE: 05/28/20 TIME: 10:31 History of Present Illness Reason for Visit: The patient is a 44 year old female who reported to the ER with abdominal pain. The pain is located in the upper abdomen primarily and is nonradiating. She has a prior history of a repaired perforated gastric ulcer. Past Medical History Cardiovascular: No pertinent hx Pulmonary: COPD, Pulmonary embolus GI: GERD, GI bleed, Gastritis, Peptic Ulcer disease, Other Heme/Onc: No pertinent hx Hepatobiliary: No pertinent hx Psych: No pertinent hx Musculoskeletal: low back pain Rheumatologic: Other Endocrine: No pertinent hx Past Surgical History Past Surgical History: Appendectomy, Cholecystectomy, , Hysterectomy, Other Family History Family History: Alzheimer's Disease, Hypertension Social History Quit ALCOHOL: rare Drugs: None Current Problem List Problem List Problems Medical Problems: (1) Abdominal pain Status: Acute Current Medications Current Medications Current Medications Sodium Chloride 1,000 ml @ 1,000 mls/hr 1X ONCE IV Last administered on 05/26/20at 18:12; Start 05/26/20 at 17:15; Stop 05/26/20 at 18:14; Status DC Ondansetron HCl (Zofran) 4 mg 1X ONCE IV Last administered on 05/26/20at 18:12; Start 05/26/20 at 17:15; Stop 05/26/20 at 17:16; Status DC Hydromorphone HCl (Dilaudid) 0.5 mg PRN Q1HR PRN IV/SQ PAIN GREATER THAN 3/10 Last administered on 05/26/20at 22:26; Start 05/26/20 at 17:15; Stop 05/26/20 at 22:26; Status DC Famotidine (Pepcid Vial) 20 mg 1X ONCE IVP Last administered on 05/26/20at 19:38; Start 05/26/20 at 20:00; Stop 05/26/20 at 20:01; Status DC Fentanyl Citrate (Fentanyl 2ml Vial) 50 mcg PRN Q2HRS PRN IV PAIN Last administered on 05/27/20at 01:49; Start 05/26/20 at 19:30; Stop 05/27/20 at 01:49; Status DC Sodium Chloride 1,000 ml @ 125 mls/hr Q8H IV Last administered on 05/26/20at 20:55; Start 05/26/20 at 19:30; Stop 05/26/20 at 23:29; Status DC Hydromorphone HCl (Dilaudid) 0.5 mg PRN Q2HRS PRN IV SEVERE PAIN 7-10 Last administered on 05/28/20at 07:16; Start 05/27/20 at 02:00; Stop 05/28/20 at 09:25; Status DC Pantoprazole Sodium (PROTONIX VIAL for IV PUSH) 40 mg DAILYAC IVP Last administered on 05/28/20at 08:12; Start 05/27/20 at 11:30 Sodium Chloride (Normal Saline Flush) 3 ml QSHIFT PRN IV AFTER MEDS AND BLOOD DRAWS; Start 05/27/20 at 11:30 Sodium Chloride 1,000 ml @ 70 mls/hr [id number] IV Last administered on 05/28/20at 01:43; Start 05/27/20 at 11:25 Ondansetron HCl (Zofran) 4 mg PRN Q4HRS PRN IV NAUSEA/VOMITING; Start 05/27/20 at 11:30 Acetaminophen (Tylenol) 650 mg PRN Q4HRS PRN PO TEMP OVER 100.4F OR MILD PAIN; Start 05/27/20 at 11:30 Sodium Monofluorophosphate (Fleet Adult) 133 ml PRN DAILY PRN [place] CONSTIPATION; Start 05/27/20 at 11:30 Docusate Sodium (Colace) 100 mg PRN BID PRN PO HARD STOOLS; Start 05/27/20 at 11:30 Albuterol Sulfate (Ventolin Neb Soln) 2.5 mg PRN Q4HRS PRN NEB SHORTNESS OF BREATH; Start 05/27/20 at 11:30 Guaifenesin (Robitussin) 200 mg PRN Q4HRS PRN PO COUGH; Start 05/27/20 at 11:30 Lorazepam (Ativan) 0.5 mg PRN Q4HRS PRN PO ANXIETY / AGITATION Last administered on 05/27/20at 22:42; Start 05/27/20 at 11:30 Enoxaparin Sodium (Lovenox 40mg Syringe) 40 mg Q24H SQ Last administered on 05/27/20at 11:52; Start 05/27/20 at 12:00 Hydromorphone HCl (Dilaudid) 1 mg PRN Q3HRS PRN IV SEVERE PAIN 7-10 Last administered on 05/28/20at 09:35; Start 05/28/20 at 09:30 Active Scripts Active Culturelle (Lactobacillus Rhamnosus Gg) 1 Each Cap.sprink 1 Cap PO BID 30 Days Dok (Docusate Sodium) 100 Mg Capsule 100 Mg PO PRN BID PRN 30 Days Zofran Odt (Ondansetron) 4 Mg Tab.rapdis 1 Tab SL Q8HRS PRN Reported Protonix (Pantoprazole Sodium) 40 Mg Tablet.dr 40 Mg PO BIDAC Percocet 5-325 Mg Tablet (Oxycodone/Acetaminophen) 1 Each Tablet 1 Tab PO Q4HRS PRN Keppra (Levetiracetam) 500 Mg Tablet 500 Mg PO BID Carafate (Sucralfate) 1 Gm Tablet 1 Tab PO QID 30 Days Lasix (Furosemide) 40 Mg Tablet 40 Mg PO BID Clonazepam 1 Mg Tablet 0.5 Mg PO PRN Q6HRS PRN Risperdal (Risperidone) 4 Mg Tablet 5 Mg PO BID Prozac (Fluoxetine Hcl) 40 Mg Capsule 1 Cap PO DAILY Allergies Allergies: Coded Allergies: Iodine and Iodide Containing Produc (Verified Allergy, Severe, throat swelling to IV contrast, 04/19/20) sulfamethoxazole (Verified Allergy, Severe, SWELLING,TROUBLE BREATHING, 05/27/20) trimethoprim (Verified Allergy, Severe, SWELLING,TROUBLE BREATHING, 05/27/20) Cephalexin Monohydrate (Verified Allergy, Intermediate, SWELLING,TROUBLE BREATHING, 04/16/20) NSAIDS (Non-Steroidal Anti-Inflamma (Verified Allergy, Intermediate, 03/18/20) TORADOL OK Penicillins (Verified Allergy, Intermediate, SWELLING,TROUBLE BREATHING, 04/16/20) iodine (Verified Allergy, Intermediate, 03/18/20) lidocaine (Verified Allergy, Intermediate, 03/18/20) prochlorperazine edisylate (Verified Allergy, Intermediate, 03/18/20) prochlorperazine maleate (Verified Allergy, Intermediate, 03/18/20) ROS General: No: Chills, Night Sweats, Fatigue, Malaise, Appetite, Other PSYCHOLOGICAL ROS: No: Anxiety, Behavioral Disorder, Concentration difficultie, Decreased libido, Depression, Disorientation, Hallucinations, Hostility, Irritablity, Memory difficulties, Mood Swings, Obsessive thoughts, Physical abuse, Sexual abuse, Sleep disturbances, Suicidal ideation, Other HEENT: No: Heacaches, Visual Changes, Hearing change, Nasal congestion, Nasal discharge, Oral lesions, Sinus pain, Sore Throat, Epistaxis, Sneezing, Snoring, Tinnitus, Vertigo, Vocal changes, Other ALLERGY AND IMMUNOLOGY: No: Hives, Insect Bite Sensitivity, Itchy/Watery Eyes, Nasal Congestion, Post Nasal Drip, Seasonal Allergies, Other Hematological and Lymphatic: No: Bleeding Problems, Blood Clots, Blood Transfusions, Brusing, Night Sweats, Pallor, Swollen Lymph Nodes, Other ENDOCRINE: No: Breast Changes, Galactorrhea, Hair Pattern Changes, Hot Flashes, Malaise/lethargy, Mood Swings, Palpitations, Polydipsia/polyuria, Skin Changes, Temperature Intolerance, Unexpected Weight Changes, Other Respiratory: No: Cough, Hemoptysis, Orthopnea, Pleuritic Pain, Shortness of breath, SOB with excertion, Sputum Changes, Stridor, Tachypnea, Wheezing, Other Cardiovascular: No Chest Pain, No Palpitations, No Orthopnea, No Paroxysmal Noc. Dyspnea, No Edema, No Lt Headedness, No Other Gastrointestinal: Yes Abdominal Pain Genitourinary: No Dysuria, No Frequency, No Incontinence, No Hematuria, No Retention, No Discharge, No Urgency, No Pain, No Flank Pain, No Other, No , No , No , No , No , No , No Musculoskeletal: No Gait Disturbance, No Joint Pain, No Joint Stiffness, No Joint Swelling, No Muscle Pain, No Muscular Weakness, No Pain In:, No Swelling In:, No Other Neurological: No Behavorial Changes, No Bowel/Bladder ControlChng, No Confusion, No Dizziness, No Gait Disturbance, No Headaches, No Impaired Coord/balance, No Memory Loss, No Numbness/Tingling, No Seizures, No Speech Problems, No Tremors, No Visual Changes, No Weakness, No Other Skin: No Dry Skin, No Eczema, No Hair Changes, No Lumps, No Mole Changes, No Mottling, No Nail Changes, No Pruritus, No Rash, No Skin Lesion Changes, No Other, No Acne Physical Exam General: Alert, Oriented X3, Cooperative, No acute distress HEENT: Atraumatic Lungs: Clear to auscultation Heart: Regular rate Abdomen: Soft (healed upper vertical midline scar with developing hernia, some tenderness with palpation but no peritoneal signs) Extremities: No clubbing, No cyanosis Skin: No rashes Neuro: Normal speech Vitals VITALS Vital Signs Date Time Temp Pulse Resp B/P (MAP) Pulse Ox O2 Delivery O2 Flow Rate FiO2 05/28/20 10:06 92 Room Air 05/28/20 07:59 97.9 80 20 126/79 (95) 97.9 05/28/20 04:03 2.0 Labs Labs Laboratory Tests Test 05/26/20 16:34 05/26/20 17:55 05/27/20 06:55 Urine Collection Type Unknown Urine Color Yellow Urine Clarity Clear Urine pH 5.5 (<5.0-8.0) Urine Specific [place] >=1.030 (1.000-1.030) Urine Protein Negative mg/dL (NEG-TRACE) Urine Glucose (UA) Negative mg/dL (NEG) Urine Ketones (Stick) Negative mg/dL (NEG) Urine Blood Negative (NEG) Urine Nitrite Negative (NEG) Urine Bilirubin Small (NEG) Urine Urobilinogen Dipstick 0.2 mg/dL (0.2 mg/dL) Urine Leukocyte Esterase Trace (NEG) Urine RBC 0 /HPF (0-2) Urine WBC 5-10 /HPF (0-4) Urine Squamous Epithelial Cells Many /LPF Urine Bacteria Few /HPF (0-FEW) Urine Hyaline Casts Many /HPF Urine Mucus Marked /LPF White Blood Count 8.4 x10^3/uL (4.0-11.0) 5.8 x10^3/uL (4.0-11.0) Red Blood Count 3.94 x10^6/uL (3.50-5.40) 3.59 x10^6/uL (3.50-5.40) Hemoglobin 12.3 g/dL (12.0-15.5) 10.9 g/dL (12.0-15.5) Hematocrit 35.2 % (36.0-47.0) 32.8 % (36.0-47.0) Mean Corpuscular Volume 89 fL (79-100) 91 fL (79-100) Mean Corpuscular Hemoglobin 31 pg (25-35) 30 pg (25-35) Mean Corpuscular Hemoglobin Concent 35 g/dL (31-37) 33 g/dL (31-37) Red Cell Distribution Width 16.4 % (11.5-14.5) 16.6 % (11.5-14.5) Platelet Count 544 x10^3/uL (140-400) 444 x10^3/uL (140-400) Neutrophils (%) (Auto) 48 % (31-73) 40 % (31-73) Lymphocytes (%) (Auto) 38 % (24-48) 45 % (24-48) Monocytes (%) (Auto) 8 % (0-9) 9 % (0-9) Eosinophils (%) (Auto) 4 % (0-3) 5 % (0-3) Basophils (%) (Auto) 2 % (0-3) 1 % (0-3) Neutrophils # (Auto) 4.0 x10^3/uL (1.8-7.7) 2.3 x10^3/uL (1.8-7.7) Lymphocytes # (Auto) 3.2 x10^3/uL (1.0-4.8) 2.6 x10^3/uL (1.0-4.8) Monocytes # (Auto) 0.7 x10^3/uL (0.0-1.1) 0.5 x10^3/uL (0.0-1.1) Eosinophils # (Auto) 0.4 x10^3/uL (0.0-0.7) 0.3 x10^3/uL (0.0-0.7) Basophils # (Auto) 0.1 x10^3/uL (0.0-0.2) 0.0 x10^3/uL (0.0-0.2) Sodium Level 136 mmol/L (136-145) 141 mmol/L (136-145) Potassium Level 4.4 mmol/L (3.5-5.1) 3.8 mmol/L (3.5-5.1) Chloride Level 104 mmol/L (98-107) 107 mmol/L (98-107) Carbon Dioxide Level 18 mmol/L (21-32) 23 mmol/L (21-32) Anion Gap 14 (6-14) 11 (6-14) Blood Urea Nitrogen 18 mg/dL (7-20) 15 mg/dL (7-20) Creatinine 1.0 mg/dL (0.6-1.0) 0.8 mg/dL (0.6-1.0) Estimated GFR (Cockcroft-Gault) 60.2 77.9 BUN/Creatinine Ratio 18 (6-20) Glucose Level 90 mg/dL (70-99) 89 mg/dL (70-99) Calcium Level 9.1 mg/dL (8.5-10.1) 8.6 mg/dL (8.5-10.1) Total Bilirubin 0.2 mg/dL (0.2-1.0) Aspartate Amino Transf (AST/SGOT) 32 U/L (15-37) Alanine Aminotransferase (ALT/SGPT) 61 U/L (14-59) Alkaline Phosphatase 126 U/L (46-116) Total Protein 8.1 g/dL (6.4-8.2) Albumin 3.8 g/dL (3.4-5.0) Albumin/Globulin Ratio 0.9 (1.0-1.7) Lipase 55 U/L (73-393) Assessment/Plan Assessment/Plan 44 year old female with abdominal pain, afebrile, normal WBC, CT without free air/fluid, stranding likely due to prior surgery; no acute surgical findings; GI following MOHAN ZEPEDA MD May 28, 2020 10:36
--- NOTE | 2020-05-28 10:49 | PDOC ---
PROGRESS NOTES History of Present Illness History of Present Illness VTE Prophylaxis Ordered VTE Prophylaxis Devices: Yes VTE Pharmacological Prophylaxi: No Assessment/Plan Assessment/Plan IMPRESSION: 1. Abdominal pain 2. Mild gastric wall thickening with adjacent fat stranding. Correlate for gastritis. 05/26 s/p closure perforated ulcer, IR drainage fluid collection now with normal CT but c/o pain 03/29 3. Bilateral nonobstructing renal calculi. 4. Abdominal pain - Perforated gastric ulcer status post repair of perforated ulcer with gopal patch now with recurrent pain. Will cont pain control. Has h/o drug seeking behavior documented, will minimize IV pain medications, 5. Leukocytosis - mild, will trend 6. hx Diffuse peritonitis - improved from prior 7. Exploratory laparotomy on 03/15/2020, repair of perforated ulcer with Gopal patch. 8. Antibiotic allergies, all cause swelling and trouble breathing. 9. Transaminitis.10.History of lupus. 10.Normocytic Anemia 11.Multiple abx allergies: PCN/Keflex/Bactrim - swelling and trouble breathing 12.Bilateral nephrolithiasis, nonobstructive 13.Schizophrenia/bipolar disorder 14.Anxiety/depression 15.History of Lupus 16.History of CHF 17 history of COPD 18.Prior Smoker plan admit iv protonix GI CONSULT SURGERY CONSULT NPO IV FLUID SUPPORT dvt prophylaxis 37 min pt exam, chart review, > 50% of time spent with exam, chart review, pt care coordination Vitals Vitals Vital Signs Date Time Temp Pulse Resp B/P (MAP) Pulse Ox O2 Delivery O2 Flow Rate FiO2 05/28/20 10:06 92 Room Air 05/28/20 07:59 97.9 80 20 126/79 (95) 97.9 05/28/20 04:03 2.0 Physical Exam General: Alert, Oriented X3, Cooperative, No acute distress Heart: Regular rate Lungs: Clear Abdomen: Soft (healed upper vertical midline scar with developing hernia, some tenderness with palpation but no peritoneal signs) Extremities: No clubbing, No cyanosis Skin: No rashes Assessment and Plan Assessmemt and Plan Problems Medical Problems: (1) Abdominal pain Status: Acute Comment Review of Relevant I have reviewed the following items sasha (where applicable) has been applied. Labs Laboratory Tests Test 05/26/20 16:34 05/26/20 17:55 05/27/20 06:55 Urine Collection Type Unknown Urine Color Yellow Urine Clarity Clear Urine pH 5.5 (<5.0-8.0) Urine Specific [place] >=1.030 (1.000-1.030) Urine Protein Negative mg/dL (NEG-TRACE) Urine Glucose (UA) Negative mg/dL (NEG) Urine Ketones (Stick) Negative mg/dL (NEG) Urine Blood Negative (NEG) Urine Nitrite Negative (NEG) Urine Bilirubin Small (NEG) Urine Urobilinogen Dipstick 0.2 mg/dL (0.2 mg/dL) Urine Leukocyte Esterase Trace (NEG) Urine RBC 0 /HPF (0-2) Urine WBC 5-10 /HPF (0-4) Urine Squamous Epithelial Cells Many /LPF Urine Bacteria Few /HPF (0-FEW) Urine Hyaline Casts Many /HPF Urine Mucus Marked /LPF White Blood Count 8.4 x10^3/uL (4.0-11.0) 5.8 x10^3/uL (4.0-11.0) Red Blood Count 3.94 x10^6/uL (3.50-5.40) 3.59 x10^6/uL (3.50-5.40) Hemoglobin 12.3 g/dL (12.0-15.5) 10.9 g/dL (12.0-15.5) Hematocrit 35.2 % (36.0-47.0) 32.8 % (36.0-47.0) Mean Corpuscular Volume 89 fL (79-100) 91 fL (79-100) Mean Corpuscular Hemoglobin 31 pg (25-35) 30 pg (25-35) Mean Corpuscular Hemoglobin Concent 35 g/dL (31-37) 33 g/dL (31-37) Red Cell Distribution Width 16.4 % (11.5-14.5) 16.6 % (11.5-14.5) Platelet Count 544 x10^3/uL (140-400) 444 x10^3/uL (140-400) Neutrophils (%) (Auto) 48 % (31-73) 40 % (31-73) Lymphocytes (%) (Auto) 38 % (24-48) 45 % (24-48) Monocytes (%) (Auto) 8 % (0-9) 9 % (0-9) Eosinophils (%) (Auto) 4 % (0-3) 5 % (0-3) Basophils (%) (Auto) 2 % (0-3) 1 % (0-3) Neutrophils # (Auto) 4.0 x10^3/uL (1.8-7.7) 2.3 x10^3/uL (1.8-7.7) Lymphocytes # (Auto) 3.2 x10^3/uL (1.0-4.8) 2.6 x10^3/uL (1.0-4.8) Monocytes # (Auto) 0.7 x10^3/uL (0.0-1.1) 0.5 x10^3/uL (0.0-1.1) Eosinophils # (Auto) 0.4 x10^3/uL (0.0-0.7) 0.3 x10^3/uL (0.0-0.7) Basophils # (Auto) 0.1 x10^3/uL (0.0-0.2) 0.0 x10^3/uL (0.0-0.2) Sodium Level 136 mmol/L (136-145) 141 mmol/L (136-145) Potassium Level 4.4 mmol/L (3.5-5.1) 3.8 mmol/L (3.5-5.1) Chloride Level 104 mmol/L (98-107) 107 mmol/L (98-107) Carbon Dioxide Level 18 mmol/L (21-32) 23 mmol/L (21-32) Anion Gap 14 (6-14) 11 (6-14) Blood Urea Nitrogen 18 mg/dL (7-20) 15 mg/dL (7-20) Creatinine 1.0 mg/dL (0.6-1.0) 0.8 mg/dL (0.6-1.0) Estimated GFR (Cockcroft-Gault) 60.2 77.9 BUN/Creatinine Ratio 18 (6-20) Glucose Level 90 mg/dL (70-99) 89 mg/dL (70-99) Calcium Level 9.1 mg/dL (8.5-10.1) 8.6 mg/dL (8.5-10.1) Total Bilirubin 0.2 mg/dL (0.2-1.0) Aspartate Amino Transf (AST/SGOT) 32 U/L (15-37) Alanine Aminotransferase (ALT/SGPT) 61 U/L (14-59) Alkaline Phosphatase 126 U/L (46-116) Total Protein 8.1 g/dL (6.4-8.2) Albumin 3.8 g/dL (3.4-5.0) Albumin/Globulin Ratio 0.9 (1.0-1.7) Lipase 55 U/L (73-393) Microbiology 05/26/20 Urine Culture - Final, Complete Medications Current Medications Sodium Chloride 1,000 ml @ 1,000 mls/hr 1X ONCE IV Last administered on 05/26/20at 18:12; Start 05/26/20 at 17:15; Stop 05/26/20 at 18:14; Status DC Ondansetron HCl (Zofran) 4 mg 1X ONCE IV Last administered on 05/26/20at 18:12; Start 05/26/20 at 17:15; Stop 05/26/20 at 17:16; Status DC Hydromorphone HCl (Dilaudid) 0.5 mg PRN Q1HR PRN IV/SQ PAIN GREATER THAN 3/10 Last administered on 05/26/20at 22:26; Start 05/26/20 at 17:15; Stop 05/26/20 at 22:26; Status DC Famotidine (Pepcid Vial) 20 mg 1X ONCE IVP Last administered on 05/26/20at 19:38; Start 05/26/20 at 20:00; Stop 05/26/20 at 20:01; Status DC Fentanyl Citrate (Fentanyl 2ml Vial) 50 mcg PRN Q2HRS PRN IV PAIN Last administered on 05/27/20at 01:49; Start 05/26/20 at 19:30; Stop 05/27/20 at 01:49; Status DC Sodium Chloride 1,000 ml @ 125 mls/hr Q8H IV Last administered on 05/26/20at 20:55; Start 05/26/20 at 19:30; Stop 05/26/20 at 23:29; Status DC Hydromorphone HCl (Dilaudid) 0.5 mg PRN Q2HRS PRN IV SEVERE PAIN 7-10 Last administered on 05/28/20at 07:16; Start 05/27/20 at 02:00; Stop 05/28/20 at 09:25; Status DC Pantoprazole Sodium (PROTONIX VIAL for IV PUSH) 40 mg DAILYAC IVP Last administered on 05/28/20at 08:12; Start 05/27/20 at 11:30 Sodium Chloride (Normal Saline Flush) 3 ml QSHIFT PRN IV AFTER MEDS AND BLOOD DRAWS; Start 05/27/20 at 11:30 Sodium Chloride 1,000 ml @ 70 mls/hr [id number] IV Last administered on 05/28/20at 01:43; Start 05/27/20 at 11:25 Ondansetron HCl (Zofran) 4 mg PRN Q4HRS PRN IV NAUSEA/VOMITING; Start 05/27/20 at 11:30 Acetaminophen (Tylenol) 650 mg PRN Q4HRS PRN PO TEMP OVER 100.4F OR MILD PAIN; Start 05/27/20 at 11:30 Sodium Monofluorophosphate (Fleet Adult) 133 ml PRN DAILY PRN [place] CONSTIPATION; Start 05/27/20 at 11:30 Docusate Sodium (Colace) 100 mg PRN BID PRN PO HARD STOOLS; Start 05/27/20 at 11:30 Albuterol Sulfate (Ventolin Neb Soln) 2.5 mg PRN Q4HRS PRN NEB SHORTNESS OF BREATH; Start 05/27/20 at 11:30 Guaifenesin (Robitussin) 200 mg PRN Q4HRS PRN PO COUGH; Start 05/27/20 at 11:30 Lorazepam (Ativan) 0.5 mg PRN Q4HRS PRN PO ANXIETY / AGITATION Last administered on 05/27/20at 22:42; Start 05/27/20 at 11:30 Enoxaparin Sodium (Lovenox 40mg Syringe) 40 mg Q24H SQ Last administered on 05/27/20at 11:52; Start 05/27/20 at 12:00 Hydromorphone HCl (Dilaudid) 1 mg PRN Q3HRS PRN IV SEVERE PAIN 7-10 Last administered on 05/28/20at 09:35; Start 05/28/20 at 09:30 Active Scripts Active Culturelle (Lactobacillus Rhamnosus Gg) 1 Each Cap.sprink 1 Cap PO BID 30 Days Dok (Docusate Sodium) 100 Mg Capsule 100 Mg PO PRN BID PRN 30 Days Zofran Odt (Ondansetron) 4 Mg Tab.rapdis 1 Tab SL Q8HRS PRN Reported Protonix (Pantoprazole Sodium) 40 Mg Tablet.dr 40 Mg PO BIDAC Percocet 5-325 Mg Tablet (Oxycodone/Acetaminophen) 1 Each Tablet 1 Tab PO Q4HRS PRN Keppra (Levetiracetam) 500 Mg Tablet 500 Mg PO BID Carafate (Sucralfate) 1 Gm Tablet 1 Tab PO QID 30 Days Lasix (Furosemide) 40 Mg Tablet 40 Mg PO BID Clonazepam 1 Mg Tablet 0.5 Mg PO PRN Q6HRS PRN Risperdal (Risperidone) 4 Mg Tablet 5 Mg PO BID Prozac (Fluoxetine Hcl) 40 Mg Capsule 1 Cap PO DAILY Vitals/I & O Vital Sign - Last 24 Hours 05/27/20 05/27/20 05/27/20 05/27/20 11:00 11:49 12:08 14:02 Temp 98.1 98.1 Pulse 88 Resp 18 B/P (MAP) 111/59 (76) Pulse Ox 96 98 98 98 O2 Delivery Room Air Room Air Room Air 05/27/20 05/27/20 05/27/20 05/27/20 15:00 15:46 16:13 16:20 Temp 97.8 97.8 Pulse 72 Resp 18 B/P (MAP) 103/61 (75) Pulse Ox 97 98 98 98 O2 Delivery Room Air Room Air Room Air 05/27/20 05/27/20 05/27/20 05/27/20 17:06 18:14 18:41 19:00 Temp 98.2 98.2 Pulse 73 Resp 18 B/P (MAP) 92/60 (71) Pulse Ox 98 98 98 92 O2 Delivery Room Air Room Air Room Air Room Air 05/27/20 05/27/20 05/27/20 05/27/20 20:00 22:39 23:00 23:09 Temp 97.8 97.8 Pulse 68 Resp 16 B/P (MAP) 100/68 (79) Pulse Ox 92 97 92 O2 Delivery Room Air Room Air Room Air 05/28/20 05/28/20 05/28/20 05/28/20 00:47 01:17 03:00 04:03 Temp 98.0 98.0 Pulse 79 Resp 18 B/P (MAP) 118/69 (85) Pulse Ox 92 92 98 92 O2 Delivery Room Air Room Air Room Air O2 Flow Rate 2.0 05/28/20 05/28/20 05/28/20 05/28/20 04:33 07:16 07:40 07:59 Temp 97.9 97.9 Pulse 80 Resp 20 B/P (MAP) 126/79 (95) Pulse Ox 92 92 95 O2 Delivery Room Air Room Air Room Air Room Air 05/28/20 05/28/20 05/28/20 08:12 09:35 10:06 Pulse Ox 92 92 92 O2 Delivery Room Air Room Air Room Air Intake and Output 05/27/20 05/27/20 05/28/20 15:00 23:00 07:00 Intake Total 250 ml 200 ml Balance 250 ml 200 ml Justicifation of Admission Dx: Justifications for Admission: Justification of Admission Dx: Yes BETZY BORDEN MD May 28, 2020 10:49
[2020-05-28] MEDS: ENOXAPARIN 40 MG/0.4 ML SYRINGE. SQ SCH (11:39)
[2020-05-28 11:59] VITALS: BP 139/85
[2020-05-28] MEDS: ONDANSETRON PF 4 MG/2 ML VIAL. IV PRN ×2 (15:34→22:17)
[2020-05-28 15:47] VITALS: BP 111/74
[2020-05-28 19:00] VITALS: BP 104/67
[2020-05-28] MEDS: LORazepam 0.5 MG TABLET PO PRN (22:20)
[2020-05-28 23:00] VITALS: BP 124/58
[2020-05-29] MEDS: HYDROmorphone 2 MG/ML VIAL IV PRN ×7 (00:27→20:54)
[2020-05-29 03:00] VITALS: BP 112/65
[2020-05-29 04:30] LABS: BASO % 1 % (0-3); EOS # 0.2 x10^3/uL (0.0-0.7); EOS % 3 % (0-3); HEMATOCRIT 30.9 % (36.0-47.0); HEMOGLOBIN 10.7 g/dL (12.0-15.5); LYMPH # 2.5 x10^3/uL (1.0-4.8); LYMPH % 37 % (24-48); MEAN CORPUSCULAR HEMOGLOBIN 31 pg (25-35); MEAN CORPUSCULAR HGB CONC 35 g/dL (31-37); MEAN CORPUSCULAR VOLUME 89 fL (79-100); MONO # 0.6 x10^3/uL (0.0-1.1); MONO % 9 % (0-9); NEUT # 3.5 x10^3/uL (1.8-7.7); NEUT % 51 % (31-73); PLATELET COUNT 425 x10^3/uL (140-400); RED BLOOD COUNT 3.46 x10^6/uL (3.50-5.40); RED CELL DISTRIBUTION WIDTH 16.1 % (11.5-14.5); WHITE BLOOD COUNT 6.8 x10^3/uL (4.0-11.0)
[2020-05-29 05:24] LABS: ALBUMIN 3.2 g/dL (3.4-5.0); ALBUMIN/GLOBULIN RATIO 0.9 (1.0-1.7); CALCIUM 8.5 mg/dL (8.5-10.1); CREATININE 0.7 mg/dL (0.6-1.0); GFR 90.9; POTASSIUM 3.6 mmol/L (3.5-5.1); TOTAL BILIRUBIN 0.2 mg/dL (0.2-1.0); TOTAL PROTEIN 6.9 g/dL (6.4-8.2)
[2020-05-29 07:00] VITALS: BP 117/69
--- NOTE | 2020-05-29 07:58 | PDOC ---
PROGRESS NOTES History of Present Illness History of Present Illness VTE Prophylaxis Ordered VTE Prophylaxis Devices: Yes VTE Pharmacological Prophylaxi: No Assessment/Plan Assessment/Plan IMPRESSION: 1. Abdominal pain 2. Mild gastric wall thickening with adjacent fat stranding. Correlate for gastritis. 05/26 s/p closure perforated ulcer, IR drainage fluid collection now with normal CT but c/o pain 03/29 3. Bilateral nonobstructing renal calculi. 4. Abdominal pain - Perforated gastric ulcer status post repair of perforated ulcer with gopal patch now with recurrent pain. Will cont pain control. Has h/o drug seeking behavior documented, will minimize IV pain medications, 5. Leukocytosis - mild, will trend 6. hx Diffuse peritonitis - improved from prior 7. Exploratory laparotomy on 03/15/2020, repair of perforated ulcer with Gopal patch. 8. Antibiotic allergies, all cause swelling and trouble breathing. 9. Transaminitis.10.History of lupus. 10.Normocytic Anemia 11.Multiple abx allergies: PCN/Keflex/Bactrim - swelling and trouble breathing 12.Bilateral nephrolithiasis, nonobstructive 13.Schizophrenia/bipolar disorder 14.Anxiety/depression 15.History of Lupus 16.History of CHF 17 history of COPD 18.Prior Smoker plan admit iv protonix GI CONSULT SURGERY CONSULT NPO IV FLUID SUPPORT dvt prophylaxis CLEAR LIQUID DIET 05/29, ANEMIA NOTED, DILUTIONAL, OCCULT STOOLS 27 min pt exam, chart review, > 50% of time spent with exam, chart review, pt care coordination Vitals Vitals Vital Signs Date Time Temp Pulse Resp B/P (MAP) Pulse Ox O2 Delivery O2 Flow Rate FiO2 05/29/20 07:44 94 Room Air 05/29/20 03:42 2.0 05/29/20 03:00 98.3 75 18 112/65 (81) 98.3 Physical Exam General: Alert, Oriented X3, Cooperative, No acute distress Heart: Regular rate Lungs: Clear Abdomen: Soft (healed upper vertical midline scar with developing hernia, some tenderness with palpation but no peritoneal signs) Extremities: No clubbing, No cyanosis Skin: No rashes Labs LABS Laboratory Tests Test 05/29/20 03:35 White Blood Count 6.8 x10^3/uL (4.0-11.0) Red Blood Count 3.46 x10^6/uL (3.50-5.40) Hemoglobin 10.7 g/dL (12.0-15.5) Hematocrit 30.9 % (36.0-47.0) Mean Corpuscular Volume 89 fL (79-100) Mean Corpuscular Hemoglobin 31 pg (25-35) Mean Corpuscular Hemoglobin Concent 35 g/dL (31-37) Red Cell Distribution Width 16.1 % (11.5-14.5) Platelet Count 425 x10^3/uL (140-400) Neutrophils (%) (Auto) 51 % (31-73) Lymphocytes (%) (Auto) 37 % (24-48) Monocytes (%) (Auto) 9 % (0-9) Eosinophils (%) (Auto) 3 % (0-3) Basophils (%) (Auto) 1 % (0-3) Neutrophils # (Auto) 3.5 x10^3/uL (1.8-7.7) Lymphocytes # (Auto) 2.5 x10^3/uL (1.0-4.8) Monocytes # (Auto) 0.6 x10^3/uL (0.0-1.1) Eosinophils # (Auto) 0.2 x10^3/uL (0.0-0.7) Basophils # (Auto) 0.0 x10^3/uL (0.0-0.2) Sodium Level 138 mmol/L (136-145) Potassium Level 3.6 mmol/L (3.5-5.1) Chloride Level 103 mmol/L (98-107) Carbon Dioxide Level 22 mmol/L (21-32) Anion Gap 13 (6-14) Blood Urea Nitrogen 10 mg/dL (7-20) Creatinine 0.7 mg/dL (0.6-1.0) Estimated GFR (Cockcroft-Gault) 90.9 BUN/Creatinine Ratio 14 (6-20) Glucose Level 82 mg/dL (70-99) Calcium Level 8.5 mg/dL (8.5-10.1) Total Bilirubin 0.2 mg/dL (0.2-1.0) Aspartate Amino Transf (AST/SGOT) 71 U/L (15-37) Alanine Aminotransferase (ALT/SGPT) 71 U/L (14-59) Alkaline Phosphatase 174 U/L (46-116) Total Protein 6.9 g/dL (6.4-8.2) Albumin 3.2 g/dL (3.4-5.0) Albumin/Globulin Ratio 0.9 (1.0-1.7) Assessment and Plan Assessmemt and Plan Problems Medical Problems: (1) Abdominal pain Status: Acute Comment Review of Relevant I have reviewed the following items sasha (where applicable) has been applied. Labs Laboratory Tests Test 05/29/20 03:35 White Blood Count 6.8 x10^3/uL (4.0-11.0) Red Blood Count 3.46 x10^6/uL (3.50-5.40) Hemoglobin 10.7 g/dL (12.0-15.5) Hematocrit 30.9 % (36.0-47.0) Mean Corpuscular Volume 89 fL (79-100) Mean Corpuscular Hemoglobin 31 pg (25-35) Mean Corpuscular Hemoglobin Concent 35 g/dL (31-37) Red Cell Distribution Width 16.1 % (11.5-14.5) Platelet Count 425 x10^3/uL (140-400) Neutrophils (%) (Auto) 51 % (31-73) Lymphocytes (%) (Auto) 37 % (24-48) Monocytes (%) (Auto) 9 % (0-9) Eosinophils (%) (Auto) 3 % (0-3) Basophils (%) (Auto) 1 % (0-3) Neutrophils # (Auto) 3.5 x10^3/uL (1.8-7.7) Lymphocytes # (Auto) 2.5 x10^3/uL (1.0-4.8) Monocytes # (Auto) 0.6 x10^3/uL (0.0-1.1) Eosinophils # (Auto) 0.2 x10^3/uL (0.0-0.7) Basophils # (Auto) 0.0 x10^3/uL (0.0-0.2) Sodium Level 138 mmol/L (136-145) Potassium Level 3.6 mmol/L (3.5-5.1) Chloride Level 103 mmol/L (98-107) Carbon Dioxide Level 22 mmol/L (21-32) Anion Gap 13 (6-14) Blood Urea Nitrogen 10 mg/dL (7-20) Creatinine 0.7 mg/dL (0.6-1.0) Estimated GFR (Cockcroft-Gault) 90.9 BUN/Creatinine Ratio 14 (6-20) Glucose Level 82 mg/dL (70-99) Calcium Level 8.5 mg/dL (8.5-10.1) Total Bilirubin 0.2 mg/dL (0.2-1.0) Aspartate Amino Transf (AST/SGOT) 71 U/L (15-37) Alanine Aminotransferase (ALT/SGPT) 71 U/L (14-59) Alkaline Phosphatase 174 U/L (46-116) Total Protein 6.9 g/dL (6.4-8.2) Albumin 3.2 g/dL (3.4-5.0) Albumin/Globulin Ratio 0.9 (1.0-1.7) Laboratory Tests Test 05/29/20 03:35 White Blood Count 6.8 x10^3/uL (4.0-11.0) Red Blood Count 3.46 x10^6/uL (3.50-5.40) Hemoglobin 10.7 g/dL (12.0-15.5) Hematocrit 30.9 % (36.0-47.0) Mean Corpuscular Volume 89 fL (79-100) Mean Corpuscular Hemoglobin 31 pg (25-35) Mean Corpuscular Hemoglobin Concent 35 g/dL (31-37) Red Cell Distribution Width 16.1 % (11.5-14.5) Platelet Count 425 x10^3/uL (140-400) Neutrophils (%) (Auto) 51 % (31-73) Lymphocytes (%) (Auto) 37 % (24-48) Monocytes (%) (Auto) 9 % (0-9) Eosinophils (%) (Auto) 3 % (0-3) Basophils (%) (Auto) 1 % (0-3) Neutrophils # (Auto) 3.5 x10^3/uL (1.8-7.7) Lymphocytes # (Auto) 2.5 x10^3/uL (1.0-4.8) Monocytes # (Auto) 0.6 x10^3/uL (0.0-1.1) Eosinophils # (Auto) 0.2 x10^3/uL (0.0-0.7) Basophils # (Auto) 0.0 x10^3/uL (0.0-0.2) Sodium Level 138 mmol/L (136-145) Potassium Level 3.6 mmol/L (3.5-5.1) Chloride Level 103 mmol/L (98-107) Carbon Dioxide Level 22 mmol/L (21-32) Anion Gap 13 (6-14) Blood Urea Nitrogen 10 mg/dL (7-20) Creatinine 0.7 mg/dL (0.6-1.0) Estimated GFR (Cockcroft-Gault) 90.9 BUN/Creatinine Ratio 14 (6-20) Glucose Level 82 mg/dL (70-99) Calcium Level 8.5 mg/dL (8.5-10.1) Total Bilirubin 0.2 mg/dL (0.2-1.0) Aspartate Amino Transf (AST/SGOT) 71 U/L (15-37) Alanine Aminotransferase (ALT/SGPT) 71 U/L (14-59) Alkaline Phosphatase 174 U/L (46-116) Total Protein 6.9 g/dL (6.4-8.2) Albumin 3.2 g/dL (3.4-5.0) Albumin/Globulin Ratio 0.9 (1.0-1.7) Microbiology 05/26/20 Urine Culture - Final, Complete Medications Current Medications Sodium Chloride 1,000 ml @ 1,000 mls/hr 1X ONCE IV Last administered on 05/26/20at 18:12; Start 05/26/20 at 17:15; Stop 05/26/20 at 18:14; Status DC Ondansetron HCl (Zofran) 4 mg 1X ONCE IV Last administered on 05/26/20at 18:12; Start 05/26/20 at 17:15; Stop 05/26/20 at 17:16; Status DC Hydromorphone HCl (Dilaudid) 0.5 mg PRN Q1HR PRN IV/SQ PAIN GREATER THAN 3/10 Last administered on 05/26/20at 22:26; Start 05/26/20 at 17:15; Stop 05/26/20 at 22:26; Status DC Famotidine (Pepcid Vial) 20 mg 1X ONCE IVP Last administered on 05/26/20at 19:38; Start 05/26/20 at 20:00; Stop 05/26/20 at 20:01; Status DC Fentanyl Citrate (Fentanyl 2ml Vial) 50 mcg PRN Q2HRS PRN IV PAIN Last administered on 05/27/20at 01:49; Start 05/26/20 at 19:30; Stop 05/27/20 at 01:49; Status DC Sodium Chloride 1,000 ml @ 125 mls/hr Q8H IV Last administered on 05/26/20at 20:55; Start 05/26/20 at 19:30; Stop 05/26/20 at 23:29; Status DC Hydromorphone HCl (Dilaudid) 0.5 mg PRN Q2HRS PRN IV SEVERE PAIN 7-10 Last administered on 05/28/20at 07:16; Start 05/27/20 at 02:00; Stop 05/28/20 at 09:25; Status DC Pantoprazole Sodium (PROTONIX VIAL for IV PUSH) 40 mg DAILYAC IVP Last adminis tered on 05/28/20at 08:12; Start 05/27/20 at 11:30 Sodium Chloride (Normal Saline Flush) 3 ml QSHIFT PRN IV AFTER MEDS AND BLOOD DRAWS; Start 05/27/20 at 11:30 Sodium Chloride 1,000 ml @ 70 mls/hr [id number] IV Last administered on 05/28/20at 15:31; Start 05/27/20 at 11:25 Ondansetron HCl (Zofran) 4 mg PRN Q4HRS PRN IV NAUSEA/VOMITING Last administered on 05/28/20at 22:17; Start 05/27/20 at 11:30 Acetaminophen (Tylenol) 650 mg PRN Q4HRS PRN PO TEMP OVER 100.4F OR MILD PAIN; Start 05/27/20 at 11:30 Sodium Monofluorophosphate (Fleet Adult) 133 ml PRN DAILY PRN [place] CONSTIPATION; Start 05/27/20 at 11:30 Docusate Sodium (Colace) 100 mg PRN BID PRN PO HARD STOOLS; Start 05/27/20 at 11:30 Albuterol Sulfate (Ventolin Neb Soln) 2.5 mg PRN Q4HRS PRN NEB SHORTNESS OF BREATH; Start 05/27/20 at 11:30 Guaifenesin (Robitussin) 200 mg PRN Q4HRS PRN PO COUGH; Start 05/27/20 at 11:30 Lorazepam (Ativan) 0.5 mg PRN Q4HRS PRN PO ANXIETY / AGITATION Last administered on 05/28/20at 22:20; Start 05/27/20 at 11:30 Enoxaparin Sodium (Lovenox 40mg Syringe) 40 mg Q24H SQ Last administered on 05/28/20at 11:39; Start 05/27/20 at 12:00 Hydromorphone HCl (Dilaudid) 1 mg PRN Q3HRS PRN IV SEVERE PAIN 7-10 Last administered on 05/29/20at 07:44; Start 05/28/20 at 09:30 Active Scripts Active Culturelle (Lactobacillus Rhamnosus Gg) 1 Each Cap.sprink 1 Cap PO BID 30 Days Dok (Docusate Sodium) 100 Mg Capsule 100 Mg PO PRN BID PRN 30 Days Zofran Odt (Ondansetron) 4 Mg Tab.rapdis 1 Tab SL Q8HRS PRN Reported Protonix (Pantoprazole Sodium) 40 Mg Tablet.dr 40 Mg PO BIDAC Percocet 5-325 Mg Tablet (Oxycodone/Acetaminophen) 1 Each Tablet 1 Tab PO Q4HRS PRN Keppra (Levetiracetam) 500 Mg Tablet 500 Mg PO BID Carafate (Sucralfate) 1 Gm Tablet 1 Tab PO QID 30 Days Lasix (Furosemide) 40 Mg Tablet 40 Mg PO BID Clonazepam 1 Mg Tablet 0.5 Mg PO PRN Q6HRS PRN Risperdal (Risperidone) 4 Mg Tablet 5 Mg PO BID Prozac (Fluoxetine Hcl) 40 Mg Capsule 1 Cap PO DAILY Vitals/I & O Vital Sign - Last 24 Hours 05/28/20 05/28/20 05/28/20 05/28/20 07:59 08:12 09:35 10:06 Temp 97.9 97.9 Pulse 80 Resp 20 B/P (MAP) 126/79 (95) Pulse Ox 95 92 92 92 O2 Delivery Room Air Room Air Room Air Room Air 05/28/20 05/28/20 05/28/20 05/28/20 11:59 12:38 13:12 15:29 Temp 97.7 97.7 Pulse 84 Resp 18 B/P (MAP) 139/85 (103) Pulse Ox 96 92 92 92 O2 Delivery Room Air Room Air Room Air Room Air 05/28/20 05/28/20 05/28/20 05/28/20 15:47 15:56 18:21 18:38 Temp 97.8 97.8 Pulse 83 Resp 18 B/P (MAP) 111/74 (86) Pulse Ox 94 94 94 94 O2 Delivery Room Air Room Air Room Air Room Air 05/28/20 05/28/20 05/28/20 05/29/20 19:00 20:00 23:00 00:27 Temp 98.1 97.8 98.1 97.8 Pulse 76 69 Resp 20 18 B/P (MAP) 104/67 (79) 124/58 (80) Pulse Ox 94 92 94 O2 Delivery Room Air Room Air Room Air O2 Flow Rate 2.0 05/29/20 05/29/20 05/29/20 05/29/20 00:57 03:00 03:42 04:12 Temp 98.3 98.3 Pulse 75 Resp 18 B/P (MAP) 112/65 (81) Pulse Ox 94 98 94 94 O2 Delivery Room Air Room Air Room Air Room Air O2 Flow Rate 2.0 05/29/20 05/29/20 07:36 07:44 Pulse Ox 94 O2 Delivery Room Air Room Air Intake and Output 05/28/20 05/28/20 05/29/20 15:00 23:00 07:00 Intake Total 250 ml Balance 250 ml Justicifation of Admission Dx: Justifications for Admission: Justification of Admission Dx: Yes BETZY BORDEN MD May 29, 2020 07:58
[2020-05-29] MEDS: PANTOPRAZOLE IV PUSH 40 MG VIAL. IVP SCH (08:54)
[2020-05-29] MEDS: IV NORMAL SALINE 1000ML BAG 1,000 ML IV SCH ×2 (08:56→20:49)
--- NOTE | 2020-05-29 10:03 | PDOC ---
SURGICAL PROGRESS NOTE Subjective still with upper abdominal pain no emesis, some nausea Vital Signs Vital Signs Date Time Temp Pulse Resp B/P (MAP) Pulse Ox O2 Delivery O2 Flow Rate FiO2 05/29/20 08:55 94 Room Air 05/29/20 07:00 98.6 74 18 117/69 (85) 98.6 05/29/20 03:42 2.0 I&O Intake and Output 05/29/20 07:00 Intake Total 250 ml Balance 250 ml Intake Oral 250 ml # Voids 2 General: Alert, Oriented X3, Cooperative Abdomen: Soft, Other (TTP upper abdomen ) Labs Laboratory Tests Test 05/29/20 03:35 White Blood Count 6.8 x10^3/uL (4.0-11.0) Red Blood Count 3.46 x10^6/uL (3.50-5.40) Hemoglobin 10.7 g/dL (12.0-15.5) Hematocrit 30.9 % (36.0-47.0) Mean Corpuscular Volume 89 fL (79-100) Mean Corpuscular Hemoglobin 31 pg (25-35) Mean Corpuscular Hemoglobin Concent 35 g/dL (31-37) Red Cell Distribution Width 16.1 % (11.5-14.5) Platelet Count 425 x10^3/uL (140-400) Neutrophils (%) (Auto) 51 % (31-73) Lymphocytes (%) (Auto) 37 % (24-48) Monocytes (%) (Auto) 9 % (0-9) Eosinophils (%) (Auto) 3 % (0-3) Basophils (%) (Auto) 1 % (0-3) Neutrophils # (Auto) 3.5 x10^3/uL (1.8-7.7) Lymphocytes # (Auto) 2.5 x10^3/uL (1.0-4.8) Monocytes # (Auto) 0.6 x10^3/uL (0.0-1.1) Eosinophils # (Auto) 0.2 x10^3/uL (0.0-0.7) Basophils # (Auto) 0.0 x10^3/uL (0.0-0.2) Sodium Level 138 mmol/L (136-145) Potassium Level 3.6 mmol/L (3.5-5.1) Chloride Level 103 mmol/L (98-107) Carbon Dioxide Level 22 mmol/L (21-32) Anion Gap 13 (6-14) Blood Urea Nitrogen 10 mg/dL (7-20) Creatinine 0.7 mg/dL (0.6-1.0) Estimated GFR (Cockcroft-Gault) 90.9 BUN/Creatinine Ratio 14 (6-20) Glucose Level 82 mg/dL (70-99) Calcium Level 8.5 mg/dL (8.5-10.1) Total Bilirubin 0.2 mg/dL (0.2-1.0) Aspartate Amino Transf (AST/SGOT) 71 U/L (15-37) Alanine Aminotransferase (ALT/SGPT) 71 U/L (14-59) Alkaline Phosphatase 174 U/L (46-116) Total Protein 6.9 g/dL (6.4-8.2) Albumin 3.2 g/dL (3.4-5.0) Albumin/Globulin Ratio 0.9 (1.0-1.7) Laboratory Tests Test 05/29/20 03:35 White Blood Count 6.8 x10^3/uL (4.0-11.0) Red Blood Count 3.46 x10^6/uL (3.50-5.40) Hemoglobin 10.7 g/dL (12.0-15.5) Hematocrit 30.9 % (36.0-47.0) Mean Corpuscular Volume 89 fL (79-100) Mean Corpuscular Hemoglobin 31 pg (25-35) Mean Corpuscular Hemoglobin Concent 35 g/dL (31-37) Red Cell Distribution Width 16.1 % (11.5-14.5) Platelet Count 425 x10^3/uL (140-400) Neutrophils (%) (Auto) 51 % (31-73) Lymphocytes (%) (Auto) 37 % (24-48) Monocytes (%) (Auto) 9 % (0-9) Eosinophils (%) (Auto) 3 % (0-3) Basophils (%) (Auto) 1 % (0-3) Neutrophils # (Auto) 3.5 x10^3/uL (1.8-7.7) Lymphocytes # (Auto) 2.5 x10^3/uL (1.0-4.8) Monocytes # (Auto) 0.6 x10^3/uL (0.0-1.1) Eosinophils # (Auto) 0.2 x10^3/uL (0.0-0.7) Basophils # (Auto) 0.0 x10^3/uL (0.0-0.2) Sodium Level 138 mmol/L (136-145) Potassium Level 3.6 mmol/L (3.5-5.1) Chloride Level 103 mmol/L (98-107) Carbon Dioxide Level 22 mmol/L (21-32) Anion Gap 13 (6-14) Blood Urea Nitrogen 10 mg/dL (7-20) Creatinine 0.7 mg/dL (0.6-1.0) Estimated GFR (Cockcroft-Gault) 90.9 BUN/Creatinine Ratio 14 (6-20) Glucose Level 82 mg/dL (70-99) Calcium Level 8.5 mg/dL (8.5-10.1) Total Bilirubin 0.2 mg/dL (0.2-1.0) Aspartate Amino Transf (AST/SGOT) 71 U/L (15-37) Alanine Aminotransferase (ALT/SGPT) 71 U/L (14-59) Alkaline Phosphatase 174 U/L (46-116) Total Protein 6.9 g/dL (6.4-8.2) Albumin 3.2 g/dL (3.4-5.0) Albumin/Globulin Ratio 0.9 (1.0-1.7) Problem List Problems Medical Problems: (1) Abdominal pain Status: Acute Assessment/Plan no acute findings reviewed with Dr Leesa palacio trial clears Justicifation of Admission Dx: Justifications for Admission: Justification of Admission Dx: Yes ROBERTO PRATHER ETIOLOGIST May 29, 2020 10:03
[2020-05-29 11:00] VITALS: BP 133/60
[2020-05-29] MEDS: ENOXAPARIN 40 MG/0.4 ML SYRINGE. SQ SCH (11:00)
--- NOTE | 2020-05-29 11:57 | PDOC ---
Subjective: Subjective: Pain and "knot" at top of surgery scar. Nausea w/o vomiting, NPO. Objective: Vital Signs: Vital Signs Date Time Temp Pulse Resp B/P (MAP) Pulse Ox O2 Delivery O2 Flow Rate FiO2 05/29/20 11:36 98 Room Air 05/29/20 11:00 98.2 72 18 133/60 (84) 98.2 05/29/20 03:42 2.0 Labs: Laboratory Tests Test 05/29/20 03:35 White Blood Count 6.8 x10^3/uL Red Blood Count 3.46 x10^6/uL Hemoglobin 10.7 g/dL Hematocrit 30.9 % Mean Corpuscular Volume 89 fL Mean Corpuscular Hemoglobin 31 pg Mean Corpuscular Hemoglobin Concent 35 g/dL Red Cell Distribution Width 16.1 % Platelet Count 425 x10^3/uL Neutrophils (%) (Auto) 51 % Lymphocytes (%) (Auto) 37 % Monocytes (%) (Auto) 9 % Eosinophils (%) (Auto) 3 % Basophils (%) (Auto) 1 % Neutrophils # (Auto) 3.5 x10^3/uL Lymphocytes # (Auto) 2.5 x10^3/uL Monocytes # (Auto) 0.6 x10^3/uL Eosinophils # (Auto) 0.2 x10^3/uL Basophils # (Auto) 0.0 x10^3/uL Sodium Level 138 mmol/L Potassium Level 3.6 mmol/L Chloride Level 103 mmol/L Carbon Dioxide Level 22 mmol/L Anion Gap 13 Blood Urea Nitrogen 10 mg/dL Creatinine 0.7 mg/dL Estimated GFR (Cockcroft-Gault) 90.9 BUN/Creatinine Ratio 14 Glucose Level 82 mg/dL Calcium Level 8.5 mg/dL Total Bilirubin 0.2 mg/dL Aspartate Amino Transf (AST/SGOT) 71 U/L Alanine Aminotransferase (ALT/SGPT) 71 U/L Alkaline Phosphatase 174 U/L Total Protein 6.9 g/dL Albumin 3.2 g/dL Albumin/Globulin Ratio 0.9 URINE CULTURE Final Final Three or more organisms isolated. Results consistent with colonization or contamination during the collection process. Recollection recommended using a method to minimize contamination. Imaging: CT A/P 05/26 IMPRESSION: 1. Mild gastric wall thickening with adjacent fat stranding. Correlate for gastritis. 2. Bilateral nonobstructing renal calculi. PE: GEN: NAD - sitting up in bed LUNGS: CTAB HEART: RRR ABD: epigastrium/upper periumbilical discomfort to light touch, quiet NEURO/PSYCH: A & O 3 A/P: Abd pain H/o perf s/p repair Anemia, UTI, elevated LFTs -- Since I have seen, plans for clears per surgery. Continue PPI. Monitor LFTs, consider liver imaging. Await gastrin level. Justicifation of Admission Dx: Justifications for Admission: Justification of Admission Dx: Yes YOLY FINE May 29, 2020 11:57
[2020-05-29] MEDS: ONDANSETRON PF 4 MG/2 ML VIAL. IV PRN (13:17)
[2020-05-29 15:00] VITALS: BP 131/65
--- NOTE | 2020-05-29 15:41 | NUR ---
SS following for discharge planning. SS reviewed pt chart and discussed with pt RN. Pt is from home with spouse and is currently on room air. Pt has IV Dilaudid and on clear liquid diet. Pt self pay. SS will continue to follow for discharge planning.
[2020-05-29 19:00] VITALS: BP 107/68
[2020-05-29] MEDS: LORazepam 0.5 MG TABLET PO PRN (20:54)
[2020-05-29 23:00] VITALS: BP 116/62
[2020-05-30] MEDS: HYDROmorphone 2 MG/ML VIAL IV PRN ×5 (00:04→23:22)
[2020-05-30 03:00] VITALS: BP 102/65
[2020-05-30 05:19] LABS: BASO # 0.1 x10^3/uL (0.0-0.2); BASO % 1 % (0-3); EOS # 0.2 x10^3/uL (0.0-0.7); EOS % 3 % (0-3); HEMATOCRIT 30.9 % (36.0-47.0); HEMOGLOBIN 10.7 g/dL (12.0-15.5); LYMPH # 2.7 x10^3/uL (1.0-4.8); LYMPH % 39 % (24-48); MEAN CORPUSCULAR HEMOGLOBIN 31 pg (25-35); MEAN CORPUSCULAR HGB CONC 35 g/dL (31-37); MEAN CORPUSCULAR VOLUME 89 fL (79-100); MONO # 0.6 x10^3/uL (0.0-1.1); MONO % 9 % (0-9); NEUT # 3.3 x10^3/uL (1.8-7.7); NEUT % 48 % (31-73); PLATELET COUNT 416 x10^3/uL (140-400); RED CELL DISTRIBUTION WIDTH 16.5 % (11.5-14.5); WHITE BLOOD COUNT 6.9 x10^3/uL (4.0-11.0)
[2020-05-30 07:53] VITALS: BP 124/64
[2020-05-30] MEDS: PANTOPRAZOLE IV PUSH 40 MG VIAL. IVP SCH (08:16)
--- NOTE | 2020-05-30 08:19 | PDOC ---
PROGRESS NOTES History of Present Illness History of Present Illness VTE Prophylaxis Ordered VTE Prophylaxis Devices: Yes VTE Pharmacological Prophylaxi: No impression Assessment/Plan IMPRESSION: 1. Abdominal pain 2. Mild gastric wall thickening with adjacent fat stranding. Correlate for gastritis. 05/26 s/p closure perforated ulcer, IR drainage fluid collection now with normal CT but c/o pain 03/29 3. Bilateral nonobstructing renal calculi. 4. Abdominal pain - Perforated gastric ulcer status post repair of perforated ulcer with inderjit patch now with recurrent pain. Will cont pain control. Has h/o drug seeking behavior documented, will minimize IV pain medications, 5. Leukocytosis - mild, will trend 6. hx Diffuse peritonitis - improved from prior 7. Exploratory laparotomy on 03/15/2020, repair of perforated ulcer with Inderjit patch. 8. Antibiotic allergies, all cause swelling and trouble breathing. 9. Transaminitis.10.History of lupus. 10.Normocytic Anemia 11.Multiple abx allergies: PCN/Keflex/Bactrim - swelling and trouble breathing 12.Bilateral nephrolithiasis, nonobstructive 13.Schizophrenia/bipolar disorder 14.Anxiety/depression 15.History of Lupus 16.History of CHF 17 history of COPD 18.Prior Smoker plan admit iv protonix GI CONSULT SURGERY CONSULT NPO IV FLUID SUPPORT dvt prophylaxis CLEAR LIQUID DIET 05/29, ANEMIA NOTED, DILUTIONAL, OCCULT STOOLS 27 min pt exam, chart review, > 50% of time spent with exam, chart review, pt care coordination Vitals Vitals Vital Signs Date Time Temp Pulse Resp B/P (MAP) Pulse Ox O2 Delivery O2 Flow Rate FiO2 05/30/20 07:53 98.3 73 20 124/64 (84) 98 Room Air 98.3 Physical Exam General: Alert, Oriented X3, Cooperative, mild distress Heart: Regular rate Lungs: Clear Abdomen: Normal bowel sounds, Soft, Other (TTP upper abdomen ) Extremities: No clubbing, No cyanosis Skin: No rashes Labs LABS Exam: CT of abdomen and pelvis without contrast INDICATION: Abdominal pain TECHNIQUE: Sequential axial images through the abdomen and pelvis obtained without IV contrast. Sagittal and coronal reformatted images were reconstructed from the axial data and reviewed. Comparisons: 04/26/2020 FINDINGS: Heart size is normal. No pericardial effusion. Visualized lung bases are clear. No pleural effusion. Evaluation of solid organs is limited secondary to noncontrast technique. Liver, spleen, pancreas and adrenals are unremarkable. Gallbladder surgically absent. Several nonobstructing renal calculi are noted bilaterally. No ureteral calculi are identified. No perinephric inflammation or hydronephrosis. Bladder is decompressed not well evaluated. Uterus is absent. No abnormal adnexal mass. Large and small bowel are unremarkable. Appendix is not identified. No free intra-abdominal air or fluid. No obstruction. There is mild fat stranding surrounding the gastric body. Abdominal aorta has a normal course and caliber. IVC filter is noted. No enlarged abdominal lymph nodes are identified. No suspicious osseous lesions or acute acute fractures. IMPRESSION: 1. Mild gastric wall thickening with adjacent fat stranding. Correlate for gastritis. 2. Bilateral nonobstructing renal calculi. Exposure: One or more of the following in the visualized dose reduction techniques were utilized for this examination: 1. Automated exposure control 2. Adjustment of the MA and/or KV according to patient size 3. Use of iterative of reconstructive technique Electronically signed by: Sneha Qureshi MD (05/26/2020 5:48 PM) [id number] DICTATED and SIGNED BY: SNEHA QURESHI MD DATE: 05/26/20 1748 Laboratory Tests Test 05/30/20 05:04 White Blood Count 6.9 x10^3/uL (4.0-11.0) Red Blood Count 3.50 x10^6/uL (3.50-5.40) Hemoglobin 10.7 g/dL (12.0-15.5) Hematocrit 30.9 % (36.0-47.0) Mean Corpuscular Volume 89 fL (79-100) Mean Corpuscular Hemoglobin 31 pg (25-35) Mean Corpuscular Hemoglobin Concent 35 g/dL (31-37) Red Cell Distribution Width 16.5 % (11.5-14.5) Platelet Count 416 x10^3/uL (140-400) Neutrophils (%) (Auto) 48 % (31-73) Lymphocytes (%) (Auto) 39 % (24-48) Monocytes (%) (Auto) 9 % (0-9) Eosinophils (%) (Auto) 3 % (0-3) Basophils (%) (Auto) 1 % (0-3) Neutrophils # (Auto) 3.3 x10^3/uL (1.8-7.7) Lymphocytes # (Auto) 2.7 x10^3/uL (1.0-4.8) Monocytes # (Auto) 0.6 x10^3/uL (0.0-1.1) Eosinophils # (Auto) 0.2 x10^3/uL (0.0-0.7) Basophils # (Auto) 0.1 x10^3/uL (0.0-0.2) Assessment and Plan Assessmemt and Plan Problems Medical Problems: (1) Abdominal pain Status: Acute Comment Review of Relevant I have reviewed the following items sasha (where applicable) has been applied. Labs Laboratory Tests Test 05/29/20 03:35 05/30/20 05:04 White Blood Count 6.8 x10^3/uL (4.0-11.0) 6.9 x10^3/uL (4.0-11.0) Red Blood Count 3.46 x10^6/uL (3.50-5.40) 3.50 x10^6/uL (3.50-5.40) Hemoglobin 10.7 g/dL (12.0-15.5) 10.7 g/dL (12.0-15.5) Hematocrit 30.9 % (36.0-47.0) 30.9 % (36.0-47.0) Mean Corpuscular Volume 89 fL (79-100) 89 fL (79-100) Mean Corpuscular Hemoglobin 31 pg (25-35) 31 pg (25-35) Mean Corpuscular Hemoglobin Concent 35 g/dL (31-37) 35 g/dL (31-37) Red Cell Distribution Width 16.1 % (11.5-14.5) 16.5 % (11.5-14.5) Platelet Count 425 x10^3/uL (140-400) 416 x10^3/uL (140-400) Neutrophils (%) (Auto) 51 % (31-73) 48 % (31-73) Lymphocytes (%) (Auto) 37 % (24-48) 39 % (24-48) Monocytes (%) (Auto) 9 % (0-9) 9 % (0-9) Eosinophils (%) (Auto) 3 % (0-3) 3 % (0-3) Basophils (%) (Auto) 1 % (0-3) 1 % (0-3) Neutrophils # (Auto) 3.5 x10^3/uL (1.8-7.7) 3.3 x10^3/uL (1.8-7.7) Lymphocytes # (Auto) 2.5 x10^3/uL (1.0-4.8) 2.7 x10^3/uL (1.0-4.8) Monocytes # (Auto) 0.6 x10^3/uL (0.0-1.1) 0.6 x10^3/uL (0.0-1.1) Eosinophils # (Auto) 0.2 x10^3/uL (0.0-0.7) 0.2 x10^3/uL (0.0-0.7) Basophils # (Auto) 0.0 x10^3/uL (0.0-0.2) 0.1 x10^3/uL (0.0-0.2) Sodium Level 138 mmol/L (136-145) Potassium Level 3.6 mmol/L (3.5-5.1) Chloride Level 103 mmol/L (98-107) Carbon Dioxide Level 22 mmol/L (21-32) Anion Gap 13 (6-14) Blood Urea Nitrogen 10 mg/dL (7-20) Creatinine 0.7 mg/dL (0.6-1.0) Estimated GFR (Cockcroft-Gault) 90.9 BUN/Creatinine Ratio 14 (6-20) Glucose Level 82 mg/dL (70-99) Calcium Level 8.5 mg/dL (8.5-10.1) Total Bilirubin 0.2 mg/dL (0.2-1.0) Aspartate Amino Transf (AST/SGOT) 71 U/L (15-37) Alanine Aminotransferase (ALT/SGPT) 71 U/L (14-59) Alkaline Phosphatase 174 U/L (46-116) Total Protein 6.9 g/dL (6.4-8.2) Albumin 3.2 g/dL (3.4-5.0) Albumin/Globulin Ratio 0.9 (1.0-1.7) Laboratory Tests Test 05/30/20 05:04 White Blood Count 6.9 x10^3/uL (4.0-11.0) Red Blood Count 3.50 x10^6/uL (3.50-5.40) Hemoglobin 10.7 g/dL (12.0-15.5) Hematocrit 30.9 % (36.0-47.0) Mean Corpuscular Volume 89 fL (79-100) Mean Corpuscular Hemoglobin 31 pg (25-35) Mean Corpuscular Hemoglobin Concent 35 g/dL (31-37) Red Cell Distribution Width 16.5 % (11.5-14.5) Platelet Count 416 x10^3/uL (140-400) Neutrophils (%) (Auto) 48 % (31-73) Lymphocytes (%) (Auto) 39 % (24-48) Monocytes (%) (Auto) 9 % (0-9) Eosinophils (%) (Auto) 3 % (0-3) Basophils (%) (Auto) 1 % (0-3) Neutrophils # (Auto) 3.3 x10^3/uL (1.8-7.7) Lymphocytes # (Auto) 2.7 x10^3/uL (1.0-4.8) Monocytes # (Auto) 0.6 x10^3/uL (0.0-1.1) Eosinophils # (Auto) 0.2 x10^3/uL (0.0-0.7) Basophils # (Auto) 0.1 x10^3/uL (0.0-0.2) Microbiology 05/26/20 Urine Culture - Final, Complete Medications Current Medications Sodium Chloride 1,000 ml @ 1,000 mls/hr 1X ONCE IV Last administered on 05/26/20at 18:12; Start 05/26/20 at 17:15; Stop 05/26/20 at 18:14; Status DC Ondansetron HCl (Zofran) 4 mg 1X ONCE IV Last administered on 05/26/20at 18:12; Start 05/26/20 at 17:15; Stop 05/26/20 at 17:16; Status DC Hydromorphone HCl (Dilaudid) 0.5 mg PRN Q1HR PRN IV/SQ PAIN GREATER THAN 3/10 Last administered on 05/26/20at 22:26; Start 05/26/20 at 17:15; Stop 05/26/20 at 22:26; Status DC Famotidine (Pepcid Vial) 20 mg 1X ONCE IVP Last administered on 05/26/20at 19:38; Start 05/26/20 at 20:00; Stop 05/26/20 at 20:01; Status DC Fentanyl Citrate (Fentanyl 2ml Vial) 50 mcg PRN Q2HRS PRN IV PAIN Last administered on 05/27/20at 01:49; Start 05/26/20 at 19:30; Stop 05/27/20 at 01:49; Status DC Sodium Chloride 1,000 ml @ 125 mls/hr Q8H IV Last administered on 05/26/20at 20:55; Start 05/26/20 at 19:30; Stop 05/26/20 at 23:29; Status DC Hydromorphone HCl (Dilaudid) 0.5 mg PRN Q2HRS PRN IV SEVERE PAIN 7-10 Last administered on 05/28/20at 07:16; Start 05/27/20 at 02:00; Stop 05/28/20 at 09:25; Status DC Pantoprazole Sodium (PROTONIX VIAL for IV PUSH) 40 mg DAILYAC IVP Last administered on 05/30/20at 08:16; Start 05/27/20 at 11:30 Sodium Chloride (Normal Saline Flush) 3 ml QSHIFT PRN IV AFTER MEDS AND BLOOD DRAWS; Start 05/27/20 at 11:30 Sodium Chloride 1,000 ml @ 70 mls/hr [id number] IV Last administered on 05/29/20at 20:49; Start 05/27/20 at 11:25 Ondansetron HCl (Zofran) 4 mg PRN Q4HRS PRN IV NAUSEA/VOMITING Last administered on 05/29/20at 13:17; Start 05/27/20 at 11:30 Acetaminophen (Tylenol) 650 mg PRN Q4HRS PRN PO TEMP OVER 100.4F OR MILD PAIN; Start 05/27/20 at 11:30 Sodium Monofluorophosphate (Fleet Adult) 133 ml PRN DAILY PRN [place] CONSTIPATION; Start 05/27/20 at 11:30 Docusate Sodium (Colace) 100 mg PRN BID PRN PO HARD STOOLS; Start 05/27/20 at 11:30 Albuterol Sulfate (Ventolin Neb Soln) 2.5 mg PRN Q4HRS PRN NEB SHORTNESS OF BREATH; Start 05/27/20 at 11:30 Guaifenesin (Robitussin) 200 mg PRN Q4HRS PRN PO COUGH; Start 05/27/20 at 11:30 Lorazepam (Ativan) 0.5 mg PRN Q4HRS PRN PO ANXIETY / AGITATION Last administered on 05/29/20at 20:54; Start 05/27/20 at 11:30 Enoxaparin Sodium (Lovenox 40mg Syringe) 40 mg Q24H SQ Last administered on 05/29/20at 11:00; Start 05/27/20 at 12:00 Hydromorphone HCl (Dilaudid) 1 mg PRN Q3HRS PRN IV SEVERE PAIN 7-10 Last administered on 05/30/20at 06:08; Start 05/28/20 at 09:30 Active Scripts Active Culturelle (Lactobacillus Rhamnosus Gg) 1 Each Cap.sprink 1 Cap PO BID 30 Days Dok (Docusate Sodium) 100 Mg Capsule 100 Mg PO PRN BID PRN 30 Days Zofran Odt (Ondansetron) 4 Mg Tab.rapdis 1 Tab SL Q8HRS PRN Reported Protonix (Pantoprazole Sodium) 40 Mg Tablet.dr 40 Mg PO BIDAC Percocet 5-325 Mg Tablet (Oxycodone/Acetaminophen) 1 Each Tablet 1 Tab PO Q4HRS PRN Keppra (Levetiracetam) 500 Mg Tablet 500 Mg PO BID Carafate (Sucralfate) 1 Gm Tablet 1 Tab PO QID 30 Days Lasix (Furosemide) 40 Mg Tablet 40 Mg PO BID Clonazepam 1 Mg Tablet 0.5 Mg PO PRN Q6HRS PRN Risperdal (Risperidone) 4 Mg Tablet 5 Mg PO BID Prozac (Fluoxetine Hcl) 40 Mg Capsule 1 Cap PO DAILY Vitals/I & O Vital Sign - Last 24 Hours 05/29/20 05/29/20 05/29/20 05/29/20 08:55 10:59 11:00 11:36 Temp 98.2 98.2 Pulse 72 Resp 18 B/P (MAP) 133/60 (84) Pulse Ox 94 94 98 98 O2 Delivery Room Air Room Air Room Air Room Air 05/29/20 05/29/20 05/29/20 05/29/20 14:24 15:00 15:00 17:43 Temp 98.7 98.7 Pulse 69 Resp 18 B/P (MAP) 131/65 (87) Pulse Ox 98 98 98 98 O2 Delivery Room Air Room Air Room Air Room Air 05/29/20 05/29/20 05/29/20 05/29/20 18:07 19:00 19:30 20:54 Temp 98.3 98.3 Pulse 70 Resp 18 B/P (MAP) 107/68 (81) Pulse Ox 98 95 O2 Delivery Room Air Room Air Room Air Room Air 05/29/20 05/29/20 05/30/20 05/30/20 21:55 23:00 00:04 00:34 Temp 98.1 98.1 Pulse 63 Resp 18 B/P (MAP) 116/62 (80) Pulse Ox 91 O2 Delivery Room Air Room Air Room Air Room Air 05/30/20 05/30/20 05/30/20 05/30/20 03:00 03:02 03:32 06:08 Temp 98.1 98.1 Pulse 102 Resp 18 B/P (MAP) 102/65 (77) Pulse Ox 95 O2 Delivery Room Air Room Air Room Air Room Air 05/30/20 05/30/20 06:43 07:53 Temp 98.3 98.3 Pulse 73 Resp 20 B/P (MAP) 124/64 (84) Pulse Ox 98 O2 Delivery Room Air Room Air Intake and Output 05/29/20 05/29/20 05/30/20 15:00 23:00 07:00 Intake Total 680 ml 1670 ml 400 ml Balance 680 ml 1670 ml 400 ml Justicifation of Admission Dx: Justifications for Admission: Justification of Admission Dx: Yes BETZY BORDEN MD May 30, 2020 08:19
[2020-05-30] MEDS: LORazepam 0.5 MG TABLET PO PRN ×3 (08:21→23:21)
--- NOTE | 2020-05-30 09:21 | PDOC ---
ROBERTO PRATHER TROMMEL TENDER 05/30/20 0921: SURGICAL PROGRESS NOTE Subjective pain unchanged taking liquids, would like more to eat--feels eating is not aggravating her pain Vital Signs Vital Signs Date Time Temp Pulse Resp B/P (MAP) Pulse Ox O2 Delivery O2 Flow Rate FiO2 05/30/20 07:53 98.3 73 20 124/64 (84) 98 Room Air 98.3 I&O Intake and Output 05/30/20 07:00 Intake Total 2750 ml Balance 2750 ml Intake Oral 1980 ml IV Total 770 ml # Voids 5 General: Alert, Oriented X3, Cooperative Abdomen: Soft, Other (TTP epigastric) Labs Laboratory Tests Test 05/29/20 03:35 05/30/20 05:04 White Blood Count 6.8 x10^3/uL (4.0-11.0) 6.9 x10^3/uL (4.0-11.0) Red Blood Count 3.46 x10^6/uL (3.50-5.40) 3.50 x10^6/uL (3.50-5.40) Hemoglobin 10.7 g/dL (12.0-15.5) 10.7 g/dL (12.0-15.5) Hematocrit 30.9 % (36.0-47.0) 30.9 % (36.0-47.0) Mean Corpuscular Volume 89 fL (79-100) 89 fL (79-100) Mean Corpuscular Hemoglobin 31 pg (25-35) 31 pg (25-35) Mean Corpuscular Hemoglobin Concent 35 g/dL (31-37) 35 g/dL (31-37) Red Cell Distribution Width 16.1 % (11.5-14.5) 16.5 % (11.5-14.5) Platelet Count 425 x10^3/uL (140-400) 416 x10^3/uL (140-400) Neutrophils (%) (Auto) 51 % (31-73) 48 % (31-73) Lymphocytes (%) (Auto) 37 % (24-48) 39 % (24-48) Monocytes (%) (Auto) 9 % (0-9) 9 % (0-9) Eosinophils (%) (Auto) 3 % (0-3) 3 % (0-3) Basophils (%) (Auto) 1 % (0-3) 1 % (0-3) Neutrophils # (Auto) 3.5 x10^3/uL (1.8-7.7) 3.3 x10^3/uL (1.8-7.7) Lymphocytes # (Auto) 2.5 x10^3/uL (1.0-4.8) 2.7 x10^3/uL (1.0-4.8) Monocytes # (Auto) 0.6 x10^3/uL (0.0-1.1) 0.6 x10^3/uL (0.0-1.1) Eosinophils # (Auto) 0.2 x10^3/uL (0.0-0.7) 0.2 x10^3/uL (0.0-0.7) Basophils # (Auto) 0.0 x10^3/uL (0.0-0.2) 0.1 x10^3/uL (0.0-0.2) Sodium Level 138 mmol/L (136-145) Potassium Level 3.6 mmol/L (3.5-5.1) Chloride Level 103 mmol/L (98-107) Carbon Dioxide Level 22 mmol/L (21-32) Anion Gap 13 (6-14) Blood Urea Nitrogen 10 mg/dL (7-20) Creatinine 0.7 mg/dL (0.6-1.0) Estimated GFR (Cockcroft-Gault) 90.9 BUN/Creatinine Ratio 14 (6-20) Glucose Level 82 mg/dL (70-99) Calcium Level 8.5 mg/dL (8.5-10.1) Total Bilirubin 0.2 mg/dL (0.2-1.0) Aspartate Amino Transf (AST/SGOT) 71 U/L (15-37) Alanine Aminotransferase (ALT/SGPT) 71 U/L (14-59) Alkaline Phosphatase 174 U/L (46-116) Total Protein 6.9 g/dL (6.4-8.2) Albumin 3.2 g/dL (3.4-5.0) Albumin/Globulin Ratio 0.9 (1.0-1.7) Laboratory Tests Test 05/30/20 05:04 White Blood Count 6.9 x10^3/uL (4.0-11.0) Red Blood Count 3.50 x10^6/uL (3.50-5.40) Hemoglobin 10.7 g/dL (12.0-15.5) Hematocrit 30.9 % (36.0-47.0) Mean Corpuscular Volume 89 fL (79-100) Mean Corpuscular Hemoglobin 31 pg (25-35) Mean Corpuscular Hemoglobin Concent 35 g/dL (31-37) Red Cell Distribution Width 16.5 % (11.5-14.5) Platelet Count 416 x10^3/uL (140-400) Neutrophils (%) (Auto) 48 % (31-73) Lymphocytes (%) (Auto) 39 % (24-48) Monocytes (%) (Auto) 9 % (0-9) Eosinophils (%) (Auto) 3 % (0-3) Basophils (%) (Auto) 1 % (0-3) Neutrophils # (Auto) 3.3 x10^3/uL (1.8-7.7) Lymphocytes # (Auto) 2.7 x10^3/uL (1.0-4.8) Monocytes # (Auto) 0.6 x10^3/uL (0.0-1.1) Eosinophils # (Auto) 0.2 x10^3/uL (0.0-0.7) Basophils # (Auto) 0.1 x10^3/uL (0.0-0.2) Problem List Problems Medical Problems: (1) Abdominal pain Status: Acute Assessment/Plan no surgical indications GI following--could advance if ok with them Justicifation of Admission Dx: Justifications for Admission: Justification of Admission Dx: Yes EDWARD GARCIA MD 05/30/20 1126: SURGICAL PROGRESS NOTE Assessment/Plan Pt seen and examined. Agree with Ms. Prather's note Pt with c/o epigastric pain, due for pain meds TTP epigastric and suspect reducible incisional hernia CT without obstruction and concern for gastritis cont per GI ROBERTO PRATHER APRN May 30, 2020 09:21 EDWARD GARCIA MD May 30, 2020 11:26
--- NOTE | 2020-05-30 09:49 | PDOC ---
Subjective: Subjective: Pain is the same - unchanged w/ clears (taking slowly), worse w/ movemen t/coughing. Feels bulge in left mid abdomen. Takes Protonix and Carafate at home. Objective: Vital Signs: Vital Signs Date Time Temp Pulse Resp B/P (MAP) Pulse Ox O2 Delivery O2 Flow Rate FiO2 05/30/20 07:53 98.3 73 20 124/64 (84) 98 Room Air 98.3 Labs: Laboratory Tests Test 05/30/20 05:04 White Blood Count 6.9 x10^3/uL Red Blood Count 3.50 x10^6/uL Hemoglobin 10.7 g/dL Hematocrit 30.9 % Mean Corpuscular Volume 89 fL Mean Corpuscular Hemoglobin 31 pg Mean Corpuscular Hemoglobin Concent 35 g/dL Red Cell Distribution Width 16.5 % Platelet Count 416 x10^3/uL Neutrophils (%) (Auto) 48 % Lymphocytes (%) (Auto) 39 % Monocytes (%) (Auto) 9 % Eosinophils (%) (Auto) 3 % Basophils (%) (Auto) 1 % Neutrophils # (Auto) 3.3 x10^3/uL Lymphocytes # (Auto) 2.7 x10^3/uL Monocytes # (Auto) 0.6 x10^3/uL Eosinophils # (Auto) 0.2 x10^3/uL Basophils # (Auto) 0.1 x10^3/uL PE: GEN: NAD LUNGS: CTAB HEART: RRR ABD: hook tender left mid abdomen, soft NEURO/PSYCH: A & O 3 A/P: Abd pain H/o perf s/p repair Anemia, UTI, elevated LFTs -- Gastrin pending. Recheck LFTs. Continue PPI. ?advance beyond clears Justicifation of Admission Dx: Justifications for Admission: Justification of Admission Dx: Yes YOLY FINE May 30, 2020 09:49
--- NOTE | 2020-05-30 09:55 | NUR ---
SW following. Discussed with RN, pt from home with family, room air, clears. Pt reported she has applied for medicaid. No surgical plans. Potential discharge home today. SW will continue to follow.
[2020-05-30] MEDS ORDERED: HYDROmorphone 2 MG TABLET PO PRN ×2 (10:45→16:00)
[2020-05-30] MEDS ORDERED: ONDANSETRON ODT 4 MG TAB.RAPDIS. PO ONE (10:45)
[2020-05-30] MEDS: IV NORMAL SALINE 1000ML BAG 1,000 ML IV SCH (10:55)
[2020-05-30] MEDS: ENOXAPARIN 40 MG/0.4 ML SYRINGE. SQ SCH (11:51)
[2020-05-30 11:57] VITALS: BP 113/73
[2020-05-30 15:08] VITALS: BP 127/62
[2020-05-30] MEDS ORDERED: ONDANSETRON ODT 4 MG TAB.RAPDIS. PO PRN (16:00)
--- NOTE | 2020-05-30 17:00 | NUR ---
Patient IV infiltrated at approximately 0855. 3 unit RN attempted IV. Nursing telephone information supervisor attempted IV. All attempts for IV's have been unsuccessful. PO pain medication was offered. Patient denied multiple times. Eventually patient was agreeable. Patient requested PICC or mid line. Dr. Boo. Orders received. IR aware of consult. Patient later stated she would leave AMA. Patient stated " you dont care about my pain. Im in so much pain." Patient made aware of PO medications available. Patient stated " They dont work enough". Patient refused IM medication. Patient stated " pills dont work for me. The IV medication is the only thing that works." Patient reminded of PO orders, availability of IM if agreeable, patient refused.
[2020-05-30 17:55] LABS: ALBUMIN 3.2 g/dL (3.4-5.0); DIRECT BILIRUBIN 0.1 mg/dL (0.0-0.2); TOTAL BILIRUBIN 0.2 mg/dL (0.2-1.0); TOTAL PROTEIN 6.3 g/dL (6.4-8.2)
[2020-05-30 19:00] VITALS: BP 137/79
[2020-05-30 23:00] VITALS: BP 132/80
[2020-05-31] MEDS: IV NORMAL SALINE 1000ML BAG 1,000 ML IV SCH (01:33)
[2020-05-31] MEDS: HYDROmorphone 2 MG/ML VIAL IV PRN ×3 (02:25→08:42)
[2020-05-31 03:00] VITALS: BP 109/91
[2020-05-31] MEDS: ONDANSETRON PF 4 MG/2 ML VIAL. IV PRN (06:31)
[2020-05-31 07:05] VITALS: BP 137/75
[2020-05-31] MEDS ORDERED: PANTOPRAZOLE 40 MG TABLET.DR. PO SCH (07:30)
[2020-05-31 08:02] VITALS: BP 137/75
--- NOTE | 2020-05-31 10:36 | NUR ---
SW following. Discussed with RN, pt getting IV abx and pain meds, threatened to leave AMA yesterday. Possible discharge home with self care today. SW will continue to follow.
[2020-05-31 11:00] VITALS: BP 134/62
--- NOTE | 2020-05-31 11:01 | PDOC ---
Subjective: Subjective: Pain the same, "picks at" food. Objective: Objective: D/w Dr. Vasquez and nursing - watches clock for next dose of Dilaudid, eating w/o issue - concern for drug-seeking. Vital Signs: Vital Signs Date Time Temp Pulse Resp B/P (MAP) Pulse Ox O2 Delivery O2 Flow Rate FiO2 05/31/20 09:24 16 Room Air 05/31/20 08:02 97.9 76 137/75 (95) 96 97.9 PE: GEN: NAD LUNGS: CTAB HEART: RRR ABD: soft, stable tenderness NEURO/PSYCH: A & O 3 A/P: Abd pain - ?MSK component - hurts w/ coughing H/o perf s/p repair - gastrin pending Anemia, UTI, elevated LFTs (favorable trend compared to past admissions) -- Okay to DC per GI - d/w pt and Dr. Vasquez re: gastrin follow-up. Continue PPI. Justicifation of Admission Dx: Justifications for Admission: Justification of Admission Dx: Yes YOLY FINE May 31, 2020 11:01
[2020-05-31] MEDS ORDERED: traMADol 50 MG TABLET PO ONE (11:30)
[2020-05-31] MEDS: ENOXAPARIN 40 MG/0.4 ML SYRINGE. SQ SCH (12:00)
[2020-05-31] MEDS ORDERED: ALBU2.5V8 NEB (12:13)
[2020-05-31] MEDS ORDERED: ONDA4TAB7 PO (12:13)
[2020-05-31] MEDS ORDERED: HYDR-2761 PO (12:13)
[2020-05-31] MEDS ORDERED: HYDROcodone/APAP 5/325MG 1 TAB TABLET PO ONE (12:15)
--- NOTE | 2020-05-31 12:21 | PDOC3 ---
Discharge Summary Visit Information Date of Admission: May 27, 2020 Date of Discharge: May 31, 2020 Admitting Diagnosis Comment: 1. Abdominal pain 2. Mild gastric wall thickening with adjacent fat stranding. Correlate for gastritis. 05/26 s/p closure perforated ulcer, IR drainage fluid collection now with normal CT but c/o pain 03/29 3. Bilateral nonobstructing renal calculi. 4. Abdominal pain - Perforated gastric ulcer status post repair of perforated ulcer with inderjit patch now with recurrent pain. Will cont pain control. Has h/o drug seeking behavior documented, will minimize IV pain medications, 5. Leukocytosis - mild, will trend 6. hx Diffuse peritonitis - improved from prior 7. Exploratory laparotomy on 03/15/2020, repair of perforated ulcer with Inderjit patch. 8. Antibiotic allergies, all cause swelling and trouble breathing. 9. Transaminitis.10.History of lupus. 10.Normocytic Anemia 11.Multiple abx allergies: PCN/Keflex/Bactrim - swelling and trouble breathing 12.Bilateral nephrolithiasis, nonobstructive 13.Schizophrenia/bipolar disorder 14.Anxiety/depression 15.History of Lupus 16.History of CHF 17 history of COPD 18.Prior Smoker Final Diagnosis Problems 1. Abdominal pain improved 2. Mild gastric wall thickening with adjacent fat stranding. Correlate for gastritis. 05/26 s/p closure perforated ulcer, IR drainage fluid collection now with normal CT but c/o pain 03/29 3. Bilateral nonobstructing renal calculi. 4. Abdominal pain - Perforated gastric ulcer status post repair of perforated ulcer with inderjit patch now with recurrent pain. Will cont pain control. Has h/o drug seeking behavior documented 5. Leukocytosis with no clinical significance 6. hx Diffuse peritonitis - improved from prior 7. Exploratory laparotomy on 03/15/2020, repair of perforated ulcer with Inderjit patch. 8. Antibiotic allergies, all cause swelling and trouble breathing. 9. Transaminitis stable.History of lupus. 10.Normocytic Anemia 11.Multiple abx allergies: PCN/Keflex/Bactrim - swelling and trouble breathing 12.Bilateral nephrolithiasis, nonobstructive 13.Schizophrenia/bipolar disorder 14.Anxiety/depression 15.History of Lupus 16.History of CHF 17 history of COPD 18.Prior Smoker Brief Hospital Course Allergies Allergies Coded Allergies Type Severity Reaction Last Updated Verified Iodine and Iodide Containing Produc Allergy Severe throat swelling to IV contrast 04/19/20 Yes sulfamethoxazole Allergy Severe SWELLING,TROUBLE BREATHING 05/27/20 Yes trimethoprim Allergy Severe SWELLING,TROUBLE BREATHING 05/27/20 Yes Cephalexin Monohydrate Allergy Intermediate SWELLING,TROUBLE BREATHING 04/16/20 Yes NSAIDS (Non-Steroidal Anti-Inflamma Allergy Intermediate 03/18/20 Yes Penicillins Allergy Intermediate SWELLING,TROUBLE BREATHING 04/16/20 Yes iodine Allergy Intermediate 03/18/20 Yes lidocaine Allergy Intermediate 03/18/20 Yes prochlorperazine edisylate Allergy Intermediate 03/18/20 Yes prochlorperazine maleate Allergy Intermediate 03/18/20 Yes Vital Signs Vital Signs Date Time Temp Pulse Resp B/P (MAP) Pulse Ox O2 Delivery O2 Flow Rate FiO2 05/31/20 11:00 97.8 80 20 134/62 (86) 98 Room Air 97.8 Lab Results Laboratory Tests Test 05/30/20 03:30 05/30/20 05:04 Total Bilirubin 0.2 mg/dL (0.2-1.0) Direct Bilirubin 0.1 mg/dL (0.0-0.2) Aspartate Amino Transf (AST/SGOT) 35 U/L (15-37) Alanine Aminotransferase (ALT/SGPT) 78 U/L (14-59) Alkaline Phosphatase 177 U/L (46-116) Total Protein 6.3 g/dL (6.4-8.2) Albumin 3.2 g/dL (3.4-5.0) White Blood Count 6.9 x10^3/uL (4.0-11.0) Red Blood Count 3.50 x10^6/uL (3.50-5.40) Hemoglobin 10.7 g/dL (12.0-15.5) Hematocrit 30.9 % (36.0-47.0) Mean Corpuscular Volume 89 fL (79-100) Mean Corpuscular Hemoglobin 31 pg (25-35) Mean Corpuscular Hemoglobin Concent 35 g/dL (31-37) Red Cell Distribution Width 16.5 % (11.5-14.5) Platelet Count 416 x10^3/uL (140-400) Neutrophils (%) (Auto) 48 % (31-73) Lymphocytes (%) (Auto) 39 % (24-48) Monocytes (%) (Auto) 9 % (0-9) Eosinophils (%) (Auto) 3 % (0-3) Basophils (%) (Auto) 1 % (0-3) Neutrophils # (Auto) 3.3 x10^3/uL (1.8-7.7) Lymphocytes # (Auto) 2.7 x10^3/uL (1.0-4.8) Monocytes # (Auto) 0.6 x10^3/uL (0.0-1.1) Eosinophils # (Auto) 0.2 x10^3/uL (0.0-0.7) Basophils # (Auto) 0.1 x10^3/uL (0.0-0.2) Brief Hospital Course Ms. Goncalves is a 44 old female who presented with abdominal pain. She was seen in consultation by GI and also by Dr. Evans from surgery. And she was found to have some changes on her CT of the abdomen but our clinical sales consultant did not find normal findings that would require surgical intervention.CT without free air/fluid, stranding likely due to prior surgery; no acute surgical f indings Patient was also seen by GI, Laboratory data was unremarkable except for a mild transaminitis which seems to be of no clinical significance. Patient was given pain medications and unfortunately seems to be hooked on Dilaudid. She was asking for the medication with a stop watch every 3 hours. Patient was advised that this will have a deleterious effect on her GI tract given the adverse effect profile from narcotic medications on top of being quite addictive which she seems to be at this point. Patient was able to increase her food intake to the point that on the date of discharge she asked for a grilled cheese for lunch. Patient does not seem to be in acute distress has multiple allergies and we will give her a prescription for a limited supply of Percocet which we have encouraged the patient not to take except those severe cases. Patient will be given also nausea medication and a muscle relaxant and hopefully have her symptoms better controlled going forward. She is hemodynamically stable and in no apparent distress and in good spirits to be discharged home today. All of her concerns were addressed to the best of my ability Assessment Assessment Gen.: well-developed well-nourished in no apparent distress Head: Normal shape atraumatic Eyes: Pupils equal reactive to light and accommodation, normal conjunctivae and lids Ears: Normal shape Nose: Normal shape no trauma Mouth: No exudates of the back of throat no thrush no lesions Neck: Supple no JVD no carotid bruit or lymphadenopathy no thyromegaly Chest: Lungs clear to auscultation with good inspiratory effort no crackles rales or rhonchi Cardiovascular: S1-S2 regular rhythm no murmurs gallops or rubs Abdomen: Surgical scar well-healed, no signs of infections, patient seems to have evidence of ventral hernia currently not incarcerated and nonsurgical as per clinical sales consultant. Bowel sounds present soft nontender no hepatosplenomegaly appreciated sign Extremities: No clubbing no cyanosis no edema peripheral pulses palpated b ilaterally Neurological: Alert awake oriented in person time place and situation, cranial nerves II through XII intact, no motor or sensory deficits appreciated Psych: Appropriate mood, cooperative Discharge Information Condition at Discharge: Improved Follow Up: Weeks Disposition/Orders: D/C to Home Scheduled Fluoxetine Hcl (Prozac) 40 Mg Capsule, 1 CAP PO DAILY, #30 Ref 3 (Reported) Entered as Reported by: LAXMI CHING on 06/29/17 1607 Furosemide (Lasix) 40 Mg Tablet, 40 MG PO BID for chf, (Reported) Entered as Reported by: JANUARY RAVI on 03/15/20 0639 Lactobacillus Rhamnosus Gg (Culturelle) 1 Each Cap.sprink, 1 CAP PO BID for SUPPLEMENT for 30 Days, #60 Prescribed by: BETZY BORDEN MD on 03/31/20 1232 Levetiracetam (Keppra) 500 Mg Tablet, 500 MG PO BID for , (Reported) Entered as Reported by: DEANGELO MOMIN RN on 03/15/20 0835 Ondansetron Hcl (Zofran) 4 Mg Tablet, 1 TAB PO Q6HRS for nausea, #20 Prescribed by: ANASTASIA FITZPATRICK MD on 05/31/20 1213 Pantoprazole Sodium (Protonix ) 40 Mg Tablet.dr, 40 MG PO BIDAC for GERD, (Reported) Entered as Reported by: OVIDIO PRADO on 05/26/202339 Last Action: New Order on 05/26/202339 by OVIDIO PRADO Risperidone (Risperdal) 4 Mg Tablet, 5 MG PO BID, (Reported) Entered as Reported by: LAXMI CHING on 06/29/17 1607 Sucralfate (Carafate) 1 Gm Tablet, 1 TAB PO QID for ulcers for 30 Days, #120 Ref 0 (Reported) Entered as Reported by: JANUARY RAVI on 03/15/20 0700 Scheduled PRN Albuterol Sulfate (Proair Hfa) 8.5 Gm Hfa.aer.ad, 2.5 MG NEB PRN Q4HRS PRN for SHORTNESS OF BREATH for 30 Days, #1 Prescribed by: ANASTASIA FITZPATRICK MD on 05/31/20 1213 Clonazepam (Clonazepam) 1 Mg Tablet, 0.5 MG PO PRN Q6HRS PRN for ANXIETY, (Reported) Entered as Reported by: LAXMI CHING on 06/29/17 1607 Docusate Sodium (Dok) 100 Mg Capsule, 100 MG PO PRN BID PRN for HARD STOOLS for 30 Days, #30 Prescribed by: BETZY BORDEN MD on 03/31/20 1232 Hydrocodone Bit/Acetaminophen (Hydrocodone-Apap 5-325 ) 1 Tab Tablet, 1 TAB PO Q6HRS PRN for PAIN for 3 Days, #12 Prescribed by: ANASTASIA FITZPATRICK MD on 05/31/20 1213 Discontinued Medications Ondansetron (Zofran Odt) 4 Mg Tab.rapdis, 1 TAB SL Q8HRS PRN for nausea and vomiting, #15 Prescribed by: NAVEED ARMANDO APRN on 07/30/17 2242 Oxycodone/Apap 5-325 (Percocet 5-325 Mg Tablet ) 1 Each Tablet, 1 TAB PO Q4HRS PRN for PAIN, Ref 0 (Reported) Entered as Reported by: AMINTA LU on 04/19/20 0826 Justicifation of Admission Dx: Justifications for Admission: Justification of Admission Dx: Yes ANASTASIA FITZPATRICK MD May 31, 2020 12:21
--- NOTE | 2020-05-31 12:42 | NUR ---
Discharge instructions and belongings reviewed with patient, verbalized understanding. Patient will be escorted out via wheelchair by [facility].
--- NOTE | 2020-05-31 13:02 | PDOC ---
SURGICAL PROGRESS NOTE Subjective Pt with c/o abd pain, but improved Vital Signs Vital Signs Date Time Temp Pulse Resp B/P (MAP) Pulse Ox O2 Delivery O2 Flow Rate FiO2 05/31/20 12:15 16 Room Air 05/31/20 11:00 97.8 80 134/62 (86) 98 97.8 I&O Intake and Output 05/31/20 07:00 Intake Total 480 ml Balance 480 ml Intake Oral 480 ml # Voids 3 General: Alert, Oriented X3, Cooperative, mild distress Abdomen: Soft, Other (TTP epigastric, suspected epigastric incisional hernia) Labs Laboratory Tests Test 05/30/20 03:30 05/30/20 05:04 Total Bilirubin 0.2 mg/dL (0.2-1.0) Direct Bilirubin 0.1 mg/dL (0.0-0.2) Aspartate Amino Transf (AST/SGOT) 35 U/L (15-37) Alanine Aminotransferase (ALT/SGPT) 78 U/L (14-59) Alkaline Phosphatase 177 U/L (46-116) Total Protein 6.3 g/dL (6.4-8.2) Albumin 3.2 g/dL (3.4-5.0) White Blood Count 6.9 x10^3/uL (4.0-11.0) Red Blood Count 3.50 x10^6/uL (3.50-5.40) Hemoglobin 10.7 g/dL (12.0-15.5) Hematocrit 30.9 % (36.0-47.0) Mean Corpuscular Volume 89 fL (79-100) Mean Corpuscular Hemoglobin 31 pg (25-35) Mean Corpuscular Hemoglobin Concent 35 g/dL (31-37) Red Cell Distribution Width 16.5 % (11.5-14.5) Platelet Count 416 x10^3/uL (140-400) Neutrophils (%) (Auto) 48 % (31-73) Lymphocytes (%) (Auto) 39 % (24-48) Monocytes (%) (Auto) 9 % (0-9) Eosinophils (%) (Auto) 3 % (0-3) Basophils (%) (Auto) 1 % (0-3) Neutrophils # (Auto) 3.3 x10^3/uL (1.8-7.7) Lymphocytes # (Auto) 2.7 x10^3/uL (1.0-4.8) Monocytes # (Auto) 0.6 x10^3/uL (0.0-1.1) Eosinophils # (Auto) 0.2 x10^3/uL (0.0-0.7) Basophils # (Auto) 0.1 x10^3/uL (0.0-0.2) Problem List Problems Medical Problems: (1) Abdominal pain Status: Acute Assessment/Plan abd pain appears improved OK to d/c, will send with abd binder consider hernia repair electively, but poor candidate. Justicifation of Admission Dx: Justifications for Admission: Justification of Admission Dx: Yes EDWARD GARCIA MD May 31, 2020 13:02
== END 2020-05-31 14:45 | disposition home or self-care (01) | DRG 392 ==
LOC: ER 15:08 → 4 NORTH 19:02
PROVIDERS: ADMIT Internal Medicine; ATTEND Internal Medicine
DX: K29.70 Gastritis, unspecified, without bleeding (principal); N39.0 Urinary tract infection, site not specified; J98.11 Atelectasis; R74.0 Nonspecific elevation of levels of transaminase and lactic acid dehydrogenase [LDH]; D64.9 Anemia, unspecified; E11.9 Type 2 diabetes mellitus without complications; E78.00 Pure hypercholesterolemia, unspecified; E78.5 Hyperlipidemia, unspecified; F20.9 Schizophrenia, unspecified; F31.9 Bipolar disorder, unspecified; F41.9 Anxiety disorder, unspecified; I11.0 Hypertensive heart disease with heart failure; I50.9 Heart failure, unspecified; K21.9 Gastro-esophageal reflux disease without esophagitis; J44.9 Chronic obstructive pulmonary disease, unspecified; N20.0 Calculus of kidney; Z82.0 Family history of epilepsy and other diseases of the nervous system; Z82.49 Family history of ischemic heart disease and other diseases of the circulatory system; Z86.711 Personal history of pulmonary embolism; Z87.11 Personal history of peptic ulcer disease; Z87.442 Personal history of urinary calculi; Z87.891 Personal history of nicotine dependence; Z88.0 Allergy status to penicillin; Z88.1 Allergy status to other antibiotic agents; Z90.49 Acquired absence of other specified parts of digestive tract; Z90.710 Acquired absence of both cervix and uterus; Z86.718 Personal history of other venous thrombosis and embolism; Z79.01 Long term (current) use of anticoagulants; I25.2 Old myocardial infarction; Z88.8 Allergy status to other drugs, medicaments and biological substances
CPT/HCPCS: 36415; 74176; 80048; 80053; 80076; 81001; 82941; 83690; 85025; 87086; 94760; 96361; 96374; 96375; C9113; J1170; J1650; J2405; J3010; J3490; J7030; 99285-25; G0378

== ENCOUNTER 2020-06-01 14:06 | Emergency (ER) | payer SELFPAY ==
[~2020-06-01] VITALS: Ht 172.7 cm; Wt 104.0 kg
[~2020-06-01 14:06] MED LIST changes: +ALBU2.5V8 NEB; +PANT40TA77 PO
--- NOTE | 2020-06-01 15:04 | PHYS DOC ---
Past Medical History Past Medical History: CHF, COPD, DVT, High Cholesterol, Hypertension, Kidney Stone, [place], P.U.D., Seizure, UTI, Other Additional Past Medical Histor: Pulmonary Embolism, Lupus, Bleeding Gastric Ulcers Past Surgical History: Appendectomy, Cholecystectomy, , Hysterectomy, Tonsillectomy, Other Additional Past Surgical Histo: IVC filter placed and removed,03/2020 Smoking Status: Former Smoker Alcohol Use: Rarely Drug Use: None General Adult EDM: Chief Complaint: ABDOMINAL PAIN HPI: HPI: 44-year-old female with a history of a perforated gastric ulcer presents emergency department today with epigastric abdominal pain. She just got released from the hospital yesterday after being admitted for a few days. She saw GI and general surgery while in the hospital. She reports her pain came back. The sharp shooting pain that is moderate. It is nonradiating without alleviating factors. She denies any vomiting or blood in her vomit. She denies any blood in her stools. Review of systems negative for chest pain shortness of breath vomiting fevers or chills. All other review of systems negative. ED course: 44-year-old female presenting with epigastric abdominal pain. Vitals are unremarkable. CBC unremarkable. Chemistry panel unremarkable. Urine pregn mateo test negative. Awaiting urine analysis. CT abdomen pelvis shows similar mild wall thickening from previous CT for which the patient saw general surgery and GI during her hospital stay. We are awaiting the urine analysis with the patient wanted to leave AMA. She understands the risk of disability and suffering. She is able to make medical decisions. She then left AMA. Heart Score: Risk Factors: Risk Factors: DM, Current or recent (<one month) smoker, HTN, HLP, family history of CAD, obesity. Risk Scores: Score 0 - 3: 2.5% MACE over next 6 weeks - Discharge Home Score 4 - 6: 20.3% MACE over next 6 weeks - Admit for Clinical Observation Score 7 - 10: 72.7% MACE over next 6 weeks - Early Invasive Strategies Allergies: Allergies: Allergies Coded Allergies Type Severity Reaction Last Updated Verified Iodine and Iodide Containing Produc Allergy Severe throat swelling to IV contr ast 04/19/20 Yes sulfamethoxazole Allergy Severe SWELLING,TROUBLE BREATHING 05/27/20 Yes trimethoprim Allergy Severe SWELLING,TROUBLE BREATHING 05/27/20 Yes Cephalexin Monohydrate Allergy Intermediate SWELLING,TROUBLE BREATHING 04/16/20 Yes NSAIDS (Non-Steroidal Anti-Inflamma Allergy Intermediate 03/18/20 Yes Penicillins Allergy Intermediate SWELLING,TROUBLE BREATHING 04/16/20 Yes iodine Allergy Intermediate 03/18/20 Yes lidocaine Allergy Intermediate 03/18/20 Yes prochlorperazine edisylate Allergy Intermediate 03/18/20 Yes prochlorperazine maleate Allergy Intermediate 03/18/20 Yes Physical Exam: PE: Constitutional: Well developed, well nourished, no acute distress, non-toxic appearance. [] HENT: Normocephalic, atraumatic, bilateral external ears normal, oropharynx moist, no oral exudates, nose normal. [] Eyes: PERRLA, EOMI, conjunctiva normal, no discharge. [] Neck: Normal range of motion, no tenderness, supple, no stridor. [] Cardiovascular:Heart rate regular rhythm, no murmur [] Lungs & Thorax: Bilateral breath sounds clear to auscultation [] Abdomen: Bowel sounds normal, soft, no tenderness, no masses, no pulsatile masses. Skin: Warm, dry, no erythema, no rash. [] Back: No tenderness, no CVA tenderness. [] Extremities: No tenderness, no cyanosis, no clubbing, ROM intact, no edema. [] Neurologic: Alert and oriented X 3, normal motor function, normal sensory function, no focal deficits noted. [] Psychologic: Affect normal, judgement normal, mood normal. [] Current Patient Data: Labs: Laboratory Tests Test 06/01/20 14:52 POC Urine HCG, Qualitative Hcg negative (Negative) EKG: EKG: [] Radiology/Procedures: Radiology/Procedures: [] Course & Med Decision Making: Course & Med Decision Making Pertinent Labs and Imaging studies reviewed. (See chart for details) [] Dragon Disclaimer: [place] [employer] Disclaimer: This electronic medical record was generated, in whole or in part, using a voice recognition dictation system. Departure Departure Impression: Primary Impression: Left against medical advice Disposition: 07 AGAINST MEDICAL ADVICE Condition: GUARDED Referrals: NO PCP (PCP) Justicifation of Admission Dx: Justifications for Admission: Justification of Admission Dx: N/A YFN EDWARDS MD Jun 01, 2020 15:04
--- NOTE | 2020-06-01 15:34 | RAD ---
Axial noncontrast CT imaging of the abdomen pelvis was obtained. No oral contrast was administered. COMPARISON: 05/26/2020. INDICATION: Abdominal pain. FINDINGS: The lung bases are clear. The heart is unenlarged. Limited evaluation of the solid organs without intravenous contrast. Patient status post cholecystectomy. The kidneys, adrenals, spleen and pancreas are grossly unremarkable in appearance. There is a little amount of hyperdense material seen in the duodenum which may be minimal oral contrast intake. Correlate with patient's clinical course. The stomach, small and large bowel are nondistended. Stable mild wall thickening the body the stomach.. There is persistent contrast in the colon which was seen on the prior examination as well. No free air-fluid. Stable midline incision with small superior wide necked fat filled hernia. IVC filter is seen in the anterior inferior vena cava. Patient status post hysterectomy. No radiologically significant retroperitoneal or mesenteric lymphadenopathy is identified. IMPRESSION: 1. Mild wall thickening in the stomach persists, possible gastritis. May also be inflammatory. Exposure: One or more of the following individualized dose reduction techniques were utilized for this examination: 1. Automated exposure control 2. Adjustment of the mA and/or kV according to patient size 3. Use of iterative reconstruction technique Electronically signed by: Jovon Sprague MD (06/01/2020 3:30 PM) [id number]
[2020-06-01 16:38] LABS: BASO % 0 % (0-3); EOS # 0.4 x10^3/uL (0.0-0.7); EOS % 4 % (0-3); HEMOGLOBIN 12.8 g/dL (12.0-15.5); LYMPH % 32 % (24-48); MEAN CORPUSCULAR HEMOGLOBIN 31 pg (25-35); MEAN CORPUSCULAR HGB CONC 35 g/dL (31-37); MEAN CORPUSCULAR VOLUME 90 fL (79-100); MONO # 0.6 x10^3/uL (0.0-1.1); MONO % 7 % (0-9); NEUT # 5.2 x10^3/uL (1.8-7.7); NEUT % 57 % (31-73); PLATELET COUNT 508 x10^3/uL (140-400); RED BLOOD COUNT 4.12 x10^6/uL (3.50-5.40); RED CELL DISTRIBUTION WIDTH 16.4 % (11.5-14.5); WHITE BLOOD COUNT 9.2 x10^3/uL (4.0-11.0)
[2020-06-01 16:45] VITALS: BP 188/99
[2020-06-01 16:52] LABS: CALCIUM 9.1 mg/dL (8.5-10.1); GFR 60.2; POTASSIUM 3.5 mmol/L (3.5-5.1); PREG TEST PT QUAL NEGATIVE (NEG)
[2020-06-01 16:59] LABS: ALBUMIN 4.2 g/dL (3.4-5.0); ALBUMIN/GLOBULIN RATIO 1.1 (1.0-1.7); TOTAL BILIRUBIN 0.4 mg/dL (0.2-1.0); TOTAL PROTEIN 8.2 g/dL (6.4-8.2)
[2020-06-01] MEDS ORDERED: ONDANSETRON ODT 4 MG TAB.RAPDIS. PO ONE (17:15)
[2020-06-01 17:21] LABS: BILIRUBIN,URINE SMALL (NEG); CLARITY,URINE CLEAR; COLOR,URINE YELLOW; NITRITE,URINE NEGATIVE (NEG); PH,URINE 5.5 (<5.0-8.0); PROTEIN,URINE NEGATIVE (NEG-TRACE); UROBILINOGEN,URINE 0.2 mg/dL (0.2 mg/dL)
[2020-06-01 17:33] LABS: HYALINE CASTS, URINE MODERATE /HPF; SQUAMOUS EPITHELIAL CELL,UR MANY /LPF
[2020-06-01 17:34] LABS: BACTERIA,URINE FEW /HPF (0-FEW)
== END 2020-06-01 17:27 | disposition left against medical advice (07) ==
LOC: ER 14:06
DX: R10.13 Epigastric pain (principal); J44.9 Chronic obstructive pulmonary disease, unspecified; E78.00 Pure hypercholesterolemia, unspecified; I11.0 Hypertensive heart disease with heart failure; I50.9 Heart failure, unspecified; I25.2 Old myocardial infarction; Z86.73 Personal history of transient ischemic attack (TIA), and cerebral infarction without residual deficits; Z87.442 Personal history of urinary calculi; Z87.440 Personal history of urinary (tract) infections; Z86.711 Personal history of pulmonary embolism; Z86.718 Personal history of other venous thrombosis and embolism; Z90.89 Acquired absence of other organs; Z90.49 Acquired absence of other specified parts of digestive tract; Z90.710 Acquired absence of both cervix and uterus; Z87.891 Personal history of nicotine dependence; Z88.0 Allergy status to penicillin; Z88.1 Allergy status to other antibiotic agents; Z88.2 Allergy status to sulfonamides; Z88.4 Allergy status to anesthetic agent; Z88.5 Allergy status to narcotic agent; Z91.041 Radiographic dye allergy status; Z88.6 Allergy status to analgesic agent; Z88.8 Allergy status to other drugs, medicaments and biological substances
CPT/HCPCS: 36415; 74176; 80053; 81001; 81025; 83690; 84703; 85025; 87086; 99284

== ENCOUNTER 2020-06-14 04:16 | Emergency (ER) | payer SELFPAY ==
[~2020-06-14] VITALS: Ht 172.7 cm; Wt 106.8 kg
--- NOTE | 2020-06-14 04:37 | PHYS DOC ---
Past Medical History Past Medical History: CHF, COPD, DVT, High Cholesterol, Hypertension, Kidney Stone, [place], P.U.D., Seizure, UTI, Other Additional Past Medical Histor: Pulmonary Embolism, Lupus, Bleeding Gastric Ulcers Past Surgical History: Appendectomy, Cholecystectomy, , Hysterectomy, Tonsillectomy, Other Additional Past Surgical Histo: IVC filter placed and removed,03/2020 Smoking Status: Former Smoker Alcohol Use: Rarely Drug Use: None General Adult EDM: Chief Complaint: ABDOMINAL PAIN HPI: HPI: Patient is a 44 year old female who arrives via EMS complaining of abdominal pain. Patient has a history of perforated ulcer status post surgical repair earlier this year. Patient states that she started having pain yesterday evenings to the severity that it caused her to passed out. Patient had nausea and a little bit of vomiting. Patient states the pain is severe sharp and in the area of her left-sided hernia. Patient states is worse with palpation. Patient states it does radiate to her back. Patient denies any fevers or chills. Review of Systems: Review of Systems: Constitutional: Denies fever or chills. [] Eyes: Denies change in visual acuity. [] HENT: Denies nasal congestion or sore throat. [] Respiratory: Denies cough or shortness of breath. [] Cardiovascular: Denies chest pain or edema. [] GI: Complains abdominal pain, nausea, vomiting, no diarrhea : Denies dysuria. [] Musculoskeletal: Denies back pain or joint pain. [] Integument: Denies rash. [] Neurologic: Denies headache, focal weakness or sensory changes. [] Endocrine: Denies polyuria or polydipsia. [] Lymphatic: Denies swollen glands. [] Psychiatric: Denies depression or anxiety. [] Heart Score: Risk Factors: Risk Factors: DM, Current or recent (<one month) smoker, HTN, HLP, family history of CAD, obesity. Risk Scores: Score 0 - 3: 2.5% MACE over next 6 weeks - Discharge Home Score 4 - 6: 20.3% MACE over next 6 weeks - Admit for Clinical Observation Score 7 - 10: 72.7% MACE over next 6 weeks - Early Invasive Strategies Current Medications: Current Medications Medications (Trade) Dose Ordered Sig/Tex Start Time Stop Time Status Last Admin Dose Admin Dicyclomine HCl (Bentyl) 20 mg 1X ONCE 06/14/20 05:00 06/14/20 05:01 Ondansetron HCl (Zofran) 4 mg 1X ONCE 06/14/20 05:00 06/14/20 05:01 Sodium Chloride 1,000 ml @ 1,000 mls/hr Q1H 06/14/20 05:00 06/14/20 05:59 Allergies: Allergies: Allergies Coded Allergies Type Severity Reaction Last Updated Verified Iodine and Iodide Containing Produc Allergy Severe throat swelling to IV contr ast 04/19/20 Yes sulfamethoxazole Allergy Severe SWELLING,TROUBLE BREATHING 05/27/20 Yes trimethoprim Allergy Severe SWELLING,TROUBLE BREATHING 05/27/20 Yes Cephalexin Monohydrate Allergy Intermediate SWELLING,TROUBLE BREATHING 04/16/20 Yes NSAIDS (Non-Steroidal Anti-Inflamma Allergy Intermediate 03/18/20 Yes Penicillins Allergy Intermediate SWELLING,TROUBLE BREATHING 04/16/20 Yes iodine Allergy Intermediate 03/18/20 Yes lidocaine Allergy Intermediate 03/18/20 Yes prochlorperazine edisylate Allergy Intermediate 03/18/20 Yes prochlorperazine maleate Allergy Intermediate 03/18/20 Yes Physical Exam: PE: Constitutional: Well developed, well nourished, no acute distress, non-toxic appearance. [] HENT: Normocephalic, atraumatic, bilateral external ears normal, no trismus nose normal. [] Eyes: PERRLA, EOMI, conjunctiva normal, no discharge. [] Neck: Normal range of motion, no tenderness, supple, no stridor. [] Cardiovascular:Heart rate regular rhythm, peripheral pulses intact Lungs & Thorax: Bilateral breath sounds clear no respiratory distress Abdomen: soft, tenderness on the left sided hernia without guarding or rebound. The hernia is easily reducible no masses, no pulsatile masses. [] Skin: Warm, dry, no erythema, no rash. [] Back: No tenderness, no CVA tenderness. [] Extremities: No tenderness, no cyanosis, no clubbing, ROM intact, no edema. [] Neurologic: Alert and oriented X 3, normal motor function, normal sensory function, no focal deficits noted. [] Psychologic: Affect normal, judgement normal, mood normal. [] Current Patient Data: Labs: Laboratory Tests Test 06/14/20 04:50 White Blood Count 8.3 x10^3/uL Red Blood Count 3.75 x10^6/uL Hemoglobin 11.4 g/dL Hematocrit 33.6 % Mean Corpuscular Volume 90 fL Mean Corpuscular Hemoglobin 30 pg Mean Corpuscular Hemoglobin Concent 34 g/dL Red Cell Distribution Width 16.6 % Platelet Count 607 x10^3/uL Neutrophils (%) (Auto) 43 % Lymphocytes (%) (Auto) 41 % Monocytes (%) (Auto) 10 % Eosinophils (%) (Auto) 5 % Basophils (%) (Auto) 1 % Neutrophils # (Auto) 3.6 x10^3/uL Lymphocytes # (Auto) 3.4 x10^3/uL Monocytes # (Auto) 0.8 x10^3/uL Eosinophils # (Auto) 0.4 x10^3/uL Basophils # (Auto) 0.1 x10^3/uL Maternal Serum HCG Beta Subunit 5 mIU/mL Sodium Level 139 mmol/L Potassium Level 4.0 mmol/L Chloride Level 104 mmol/L Carbon Dioxide Level 27 mmol/L Anion Gap 8 Blood Urea Nitrogen 14 mg/dL Creatinine 0.9 mg/dL Estimated GFR (Cockcroft-Gault) 68.0 BUN/Creatinine Ratio 16 Glucose Level 97 mg/dL Calcium Level 9.1 mg/dL Total Bilirubin 0.2 mg/dL Aspartate Amino Transf (AST/SGOT) 12 U/L Alanine Aminotransferase (ALT/SGPT) 17 U/L Alkaline Phosphatase 95 U/L Total Protein 7.4 g/dL Albumin 3.4 g/dL Albumin/Globulin Ratio 0.9 Current Medications Medications (Trade) Dose Ordered Sig/Tex Route PRN Reason Start Time Stop Time Status Last Admin Dose Admin Sodium Chloride 1,000 ml @ 1,000 mls/hr Q1H IV 06/14/20 05:00 06/14/20 05:59 06/14/20 04:58 Ondansetron HCl (Zofran) 4 mg 1X ONCE IVP 06/14/20 05:00 06/14/20 05:01 DC 06/14/20 04:58 Dicyclomine HCl (Bentyl) 20 mg 1X ONCE IM 06/14/20 05:00 06/14/20 05:01 DC 06/14/20 05:00 Vital Signs: Vital Signs Date Time Temp Pulse Resp B/P (MAP) Pulse Ox O2 Delivery O2 Flow Rate FiO2 06/14/20 04:18 97.9 89 18 132/71 (91) 98 97.9 EKG: EKG: [] EKG interpreted by me normal sinus rhythm with a rate of 88 normal axis, incomplete right bundle branch block, nonspecific ST changes Radiology/Procedures: Radiology/Procedures: [][facility] [address] [place] [address] IMAGING REPORT Signed PATIENT: TRACIE GAONA SACCOUNT: [id number] : 1975 LOCATION: ER AGE: 44 SEX: F EXAM STATUS: PRE ER ORD. PHYSICIAN: MOHAN JACINTO MD REASON: abd pain PROCEDURE: ACUTE ABDOMEN SERIES INDICATION: Reason: abd pain / Spl. Instructions: / History: COMPARISON: Chest x-ray from March 18, [address] abdomen June 01, 2020 IMPRESSION: 3 views of the chest and abdomen obtained. Mild interstitial and groundglass opacities bilaterally. Could be from mild edema or interstitial infiltrate. Cardiac silhouette is unremarkable. Inferior vena cava filter. There is some high density intraluminal content within the rectosigmoid region which could be from prior contrast. Surgical clips right upper quadrant likely from post cholecystectomy. Moderate stool throughout the colon. Nonspecific but not grossly obstructive bowel gas pattern. Electronically signed by: Stewart Maher MD (06/14/2020 5:30 AM) [id number] DICTATED and SIGNED BY: STEWART MAHER MD DATE: 06/14/20529 Course & Med Decision Making: Course & Med Decision Making Pertinent Labs and Imaging studies reviewed. (See chart for details) [] At 532 patient is refusing further IV fluids and disappointed that she not get IV narcotics. Patient is leaving AMA but refusing to sign paperwork. Patient is alert and oriented and competent and understands the risk of leaving. Dragon Disclaimer: Dragon Disclaimer: This electronic medical record was generated, in whole or in part, using a voice recognition dictation system. Departure Departure Impression: Primary Impression: Abdominal pain Disposition: 07 AGAINST MEDICAL ADVICE Condition: STABLE Referrals: NO PCP (PCP) Justicifation of Admission Dx: Justifications for Admission: Justification of Admission Dx: N/A MOHAN JACINTO MD Jun 14, 2020 04:37
[2020-06-14] MEDS: ONDANSETRON PF 4 MG/2 ML VIAL. IVP ONE (04:58)
[2020-06-14] MEDS: IV NORMAL SALINE 1000ML BAG 1,000 ML IV SCH (04:58)
[2020-06-14 05:00] LABS: BASO # 0.1 x10^3/uL (0.0-0.2); BASO % 1 % (0-3); EOS # 0.4 x10^3/uL (0.0-0.7); EOS % 5 % (0-3); HEMATOCRIT 33.6 % (36.0-47.0); HEMOGLOBIN 11.4 g/dL (12.0-15.5); LYMPH # 3.4 x10^3/uL (1.0-4.8); LYMPH % 41 % (24-48); MEAN CORPUSCULAR HEMOGLOBIN 30 pg (25-35); MEAN CORPUSCULAR HGB CONC 34 g/dL (31-37); MEAN CORPUSCULAR VOLUME 90 fL (79-100); MONO # 0.8 x10^3/uL (0.0-1.1); MONO % 10 % (0-9); NEUT # 3.6 x10^3/uL (1.8-7.7); NEUT % 43 % (31-73); PLATELET COUNT 607 x10^3/uL (140-400); RED BLOOD COUNT 3.75 x10^6/uL (3.50-5.40); RED CELL DISTRIBUTION WIDTH 16.6 % (11.5-14.5); WHITE BLOOD COUNT 8.3 x10^3/uL (4.0-11.0)
[2020-06-14] MEDS: DICYCLOMINE 20 MG/2 ML VIAL. IM ONE (05:00)
[2020-06-14 05:07] LABS: CALCIUM 9.1 mg/dL (8.5-10.1); CREATININE 0.9 mg/dL (0.6-1.0)
[2020-06-14 05:13] LABS: ALBUMIN 3.4 g/dL (3.4-5.0); ALBUMIN/GLOBULIN RATIO 0.9 (1.0-1.7); TOTAL BILIRUBIN 0.2 mg/dL (0.2-1.0); TOTAL PROTEIN 7.4 g/dL (6.4-8.2)
[2020-06-14 05:31] VITALS: BP 127/62
--- NOTE | 2020-06-14 05:33 | RAD ---
INDICATION: Reason: abd pain / Spl. Instructions: / History: COMPARISON: Chest x-ray from March 18, [address] abdomen June 01, 2020 IMPRESSION: 3 views of the chest and abdomen obtained. Mild interstitial and groundglass opacities bilaterally. Could be from mild edema or interstitial infiltrate. Cardiac silhouette is unremarkable. Inferior vena cava filter. There is some high density intraluminal content within the rectosigmoid region which could be from prior contrast. Surgical clips right upper quadrant likely from post cholecystectomy. Moderate stool throughout the colon. Nonspecific but not grossly obstructive bowel gas pattern. Electronically signed by: Osito Maher MD (06/14/2020 5:30 AM) [id number]
--- NOTE | 2020-06-14 14:24 | EKG ---
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
== END 2020-06-14 05:40 | disposition left against medical advice (07) ==
LOC: ER 04:16
DX: R10.9 Unspecified abdominal pain (principal); R11.2 Nausea with vomiting, unspecified; I11.0 Hypertensive heart disease with heart failure; I50.9 Heart failure, unspecified; J44.9 Chronic obstructive pulmonary disease, unspecified; E78.00 Pure hypercholesterolemia, unspecified; I25.2 Old myocardial infarction; Z87.442 Personal history of urinary calculi; Z90.89 Acquired absence of other organs; Z90.49 Acquired absence of other specified parts of digestive tract; Z90.710 Acquired absence of both cervix and uterus; Z87.891 Personal history of nicotine dependence; Z86.718 Personal history of other venous thrombosis and embolism; Z91.040 Latex allergy status; Z88.2 Allergy status to sulfonamides; Z88.8 Allergy status to other drugs, medicaments and biological substances; Z88.0 Allergy status to penicillin
CPT/HCPCS: 36415; 74022; 80053; 84702; 85025; 93005; 96361; 96372; 96374; 99285; J0500; J2405; J7030

== ENCOUNTER 2020-08-04 15:24 | Emergency (ER) | payer SELFPAY ==
[~2020-08-04] VITALS: Ht 172.7 cm; Wt 104.5 kg
[2020-08-04] MEDS ORDERED: fentaNYL PF VIAL 100 MCG/2 ML VIAL IV PRN (16:45)
[2020-08-04] MEDS ORDERED: ONDANSETRON PF 4 MG/2 ML VIAL. IVP ONE (16:45)
--- NOTE | 2020-08-04 17:04 | RAD ---
PORTABLE CHEST 1V Clinical indications: Shortness of air COMPARISON: June 14, 2020. Findings: No acute lung infiltrate or pleural effusion or pulmonary edema or lung mass or pneumothorax is seen. The heart size, pulmonary vasculature, mediastinum and both kai are unremarkable. Impression: No acute radiographic abnormality is seen. Electronically signed by: Bjorn Valerio MD (08/04/2020 5:01 PM) [id number]
[2020-08-04 17:21] LABS: BASO % 1 % (0-3); EOS # 0.4 x10^3/uL (0.0-0.7); EOS % 5 % (0-3); HEMATOCRIT 34.6 % (36.0-47.0); LYMPH # 2.7 x10^3/uL (1.0-4.8); LYMPH % 35 % (24-48); MEAN CORPUSCULAR HEMOGLOBIN 31 pg (25-35); MEAN CORPUSCULAR HGB CONC 35 g/dL (31-37); MEAN CORPUSCULAR VOLUME 90 fL (79-100); MONO # 0.7 x10^3/uL (0.0-1.1); MONO % 10 % (0-9); NEUT # 3.8 x10^3/uL (1.8-7.7); NEUT % 50 % (31-73); PLATELET COUNT 417 x10^3/uL (140-400); RED BLOOD COUNT 3.83 x10^6/uL (3.50-5.40); RED CELL DISTRIBUTION WIDTH 14.1 % (11.5-14.5); WHITE BLOOD COUNT 7.7 x10^3/uL (4.0-11.0)
[2020-08-04 17:23] LABS: BILIRUBIN,URINE NEGATIVE (NEG); CLARITY,URINE CLEAR; COLOR,URINE YELLOW; NITRITE,URINE NEGATIVE (NEG); PH,URINE 5.5 (<5.0-8.0); PROTEIN,URINE NEGATIVE (NEG-TRACE); UROBILINOGEN,URINE 0.2 mg/dL (0.2 mg/dL)
[2020-08-04 17:30] LABS: BARBITURATES NEG (NEG); BENZODIAZEPINES NEG (NEG); CANNABINOIDS NEG (NEG); COCAINE NEG (NEG); METHADONE NEG (NEG); OPIATES NEG (NEG); PHENCYCLIDINE NEG (NEG)
[2020-08-04 17:32] LABS: BACTERIA,URINE FEW /HPF (0-FEW); RBC,URINE 0 /HPF (0-2); SQUAMOUS EPITHELIAL CELL,UR MOD /LPF; WBC,URINE OCC /HPF (0-4)
[2020-08-04 17:36] LABS: AMPHETAMINE/METHAMPHETAMINE NEG (NEG); PROTHROMBIN TIME PATIENT 12.8 SEC (11.7-14.0)
[2020-08-04 17:42] LABS: CALCIUM 9.3 mg/dL (8.5-10.1); CREATININE 0.7 mg/dL (0.6-1.0); GFR 90.9
[2020-08-04 17:56] LABS: ALBUMIN 3.7 g/dL (3.4-5.0); MAGNESIUM 1.9 mg/dL (1.8-2.4); TOTAL BILIRUBIN 0.3 mg/dL (0.2-1.0); TOTAL PROTEIN 7.3 g/dL (6.4-8.2)
[2020-08-04] MEDS ORDERED: MORPHINE SULFATE 4 MG/ML VIAL. IV ONE (18:00)
--- NOTE | 2020-08-04 18:35 | PHYS DOC ---
Past Medical History Past Medical History: CHF, COPD, DVT, High Cholesterol, Hypertension, Kidney Stone, [place], P.U.D., Seizure, UTI, Other Additional Past Medical Histor: Pulmonary Embolism, Lupus, Bleeding Gastric Ulcers Past Surgical History: Appendectomy, Cholecystectomy, , Hysterectomy, Tonsillectomy, Other Additional Past Surgical Histo: IVC filter placed and removed,03/2020 Smoking Status: Current Every Day Smoker Alcohol Use: Rarely Drug Use: None General Adult EDM: Chief Complaint: FLU SYMPTOM HPI: HPI: Patient is a 44 year old female with a history of CHF, COPD, hypertension, high cholesterol, who presents today complaining of productive cough, sore throat, body aches, chest tightness, symptoms have been going on for a week. Denies any fever. Review of Systems: Review of Systems: Constitutional: Reports body aches. Denies fever or chills. [] Eyes: Denies change in visual acuity. [] HENT: Denies nasal congestion or sore throat. [] Respiratory: Reports cough and chest tightness, denies shortness of breath. [] Cardiovascular: Denies chest pain or edema. [] GI: Denies abdominal pain, nausea, vomiting, bloody stools or diarrhea. [] : Denies dysuria. [] Musculoskeletal: Denies back pain or joint pain. [] Integument: Denies rash. [] Neurologic: Denies headache, focal weakness or sensory changes. [] Psychiatric: Denies depression or anxiety. [] Heart Score: Risk Factors: Risk Factors: DM, Current or recent (<one month) smoker, HTN, HLP, family history of CAD, obesity. Risk Scores: Score 0 - 3: 2.5% MACE over next 6 weeks - Discharge Home Score 4 - 6: 20.3% MACE over next 6 weeks - Admit for Clinical Observation Score 7 - 10: 72.7% MACE over next 6 weeks - Early Invasive Strategies Current Medications: Current Medications Medications (Trade) Dose Ordered Sig/Tex Start Time Stop Time Status Last Admin Dose Admin Fentanyl Citrate (Fentanyl 2ml Vial) 50 mcg PRN Q15MIN PRN 08/04/20 16:45 08/05/20 16:44 08/04/20 17:06 50 MCG Morphine Sulfate (Morphine Sulfate) 4 mg 1X ONCE 08/04/20 18:00 08/04/20 18:01 DC 08/04/20 18:07 4 MG Ondansetron HCl (Zofran) 4 mg 1X ONCE 08/04/20 16:45 08/04/20 16:46 DC 08/04/20 17:06 4 MG Allergies: Allergies: Allergies Coded Allergies Type Severity Reaction Last Updated Verified Iodine and Iodide Containing Produc Allergy Severe throat swelling to IV contrast 04/19/20 Yes sulfamethoxazole Allergy Severe SWELLING,TROUBLE BREATHING 05/27/20 Yes trimethoprim Allergy Severe SWELLING,TROUBLE BREATHING 05/27/20 Yes Cephalexin Monohydrate Allergy Intermediate SWELLING,TROUBLE BREATHING 04/16/20 Yes NSAIDS (Non-Steroidal Anti-Inflamma Allergy Intermediate 03/18/20 Yes Penicillins Allergy Intermediate SWELLING,TROUBLE BREATHING 04/16/20 Yes iodine Allergy Intermediate 03/18/20 Yes lidocaine Allergy Intermediate 03/18/20 Yes prochlorperazine edisylate Allergy Intermediate 03/18/20 Yes prochlorperazine maleate Allergy Intermediate 03/18/20 Yes Physical Exam: PE: Constitutional: Well developed, well nourished, no acute distress, non-toxic appearance. [] HENT: Normocephalic, atraumatic, bilateral external ears normal, oropharynx moist, no oral exudates, nose normal. [] Eyes: PERRLA, EOMI, conjunctiva normal, no discharge. [] Neck: Normal range of motion, no tenderness, supple, no stridor. [] Cardiovascular:Heart rate regular rhythm, no murmur [] Lungs & Thorax: Bilateral breath sounds clear to auscultation [] Abdomen: Bowel sounds normal, soft, no tenderness, no masses, no pulsatile masses. [] Skin: Warm, dry, no erythema, no rash. [] Back: No tenderness, no CVA tenderness. [] Extremities: No tenderness, no cyanosis, no clubbing, ROM intact, no edema. [] Neurologic: Alert and oriented X 3, normal motor function, normal sensory function, no focal deficits noted. [] Psychologic: Affect normal, judgement normal, mood normal. [] Current Patient Data: Labs: Laboratory Tests Test 08/04/20 16:58 White Blood Count 7.7 x10^3/uL (4.0-11.0) Red Blood Count 3.83 x10^6/uL (3.50-5.40) Hemoglobin 12.0 g/dL (12.0-15.5) Hematocrit 34.6 % (36.0-47.0) L Mean Corpuscular Volume 90 fL (79-100) Mean Corpuscular Hemoglobin 31 pg (25-35) Mean Corpuscular Hemoglobin Concent 35 g/dL (31-37) Red Cell Distribution Width 14.1 % (11.5-14.5) Platelet Count 417 x10^3/uL (140-400) H Neutrophils (%) (Auto) 50 % (31-73) Lymphocytes (%) (Auto) 35 % (24-48) Monocytes (%) (Auto) 10 % (0-9) H Eosinophils (%) (Auto) 5 % (0-3) H Basophils (%) (Auto) 1 % (0-3) Neutrophils # (Auto) 3.8 x10^3/uL (1.8-7.7) Lymphocytes # (Auto) 2.7 x10^3/uL (1.0-4.8) Monocytes # (Auto) 0.7 x10^3/uL (0.0-1.1) Eosinophils # (Auto) 0.4 x10^3/uL (0.0-0.7) Basophils # (Auto) 0.0 x10^3/uL (0.0-0.2) Prothrombin Time 12.8 SEC (11.7-14.0) Prothrombin Time INR 1.0 (0.8-1.1) Activated Partial Thromboplast Time 26 SEC (24-38) Urine Collection Type Void Urine Color Yellow Urine Clarity Clear Urine pH 5.5 (<5.0-8.0) Urine Specific [place] 1.015 (1.000-1.030) Urine Protein Negative mg/dL (NEG-TRACE) Urine Glucose (UA) Negative mg/dL (NEG) Urine Ketones (Stick) Negative mg/dL (NEG) Urine Blood Negative (NEG) Urine Nitrite Negative (NEG) Urine Bilirubin Negative (NEG) Urine Urobilinogen Dipstick 0.2 mg/dL (0.2 mg/dL) Urine Leukocyte Esterase Small (NEG) Urine RBC 0 /HPF (0-2) Urine WBC Occ /HPF (0-4) Urine Squamous Epithelial Cells Mod /LPF Urine Bacteria Few /HPF (0-FEW) Urine Mucus Slight /LPF Sodium Level 137 mmol/L (136-145) Potassium Level 4.0 mmol/L (3.5-5.1) Chloride Level 102 mmol/L (98-107) Carbon Dioxide Level 23 mmol/L (21-32) Anion Gap 12 (6-14) Blood Urea Nitrogen 15 mg/dL (7-20) Creatinine 0.7 mg/dL (0.6-1.0) Estimated GFR (Cockcroft-Gault) 90.9 BUN/Creatinine Ratio 21 (6-20) H Glucose Level 86 mg/dL (70-99) Lactic Acid Level 0.5 mmol/L (0.4-2.0) Calcium Level 9.3 mg/dL (8.5-10.1) Magnesium Level 1.9 mg/dL (1.8-2.4) Total Bilirubin 0.3 mg/dL (0.2-1.0) Aspartate Amino Transferase (AST) 8 U/L (15-37) L Alanine Aminotransferase (ALT) 15 U/L (14-59) Alkaline Phosphatase 80 U/L (46-116) Troponin I Quantitative < 0.017 ng/mL (0.000-0.055) FZ-Bbi-S-Type Natriuretic Peptide 139 pg/mL (0-124) H Total Protein 7.3 g/dL (6.4-8.2) Albumin 3.7 g/dL (3.4-5.0) Albumin/Globulin Ratio 1.0 (1.0-1.7) Lipase 105 U/L (73-393) Thyroid Stimulating Hormone (TSH) 0.553 uIU/mL (0.358-3.74) Urine Opiates Screen Neg (NEG) Urine Methadone Screen Neg (NEG) Urine Barbiturates Neg (NEG) Urine Phencyclidine Screen Neg (NEG) Urine Amphetamine/Methamphetamine Neg (NEG) Urine Benzodiazepines Screen Neg (NEG) Urine Cocaine Screen Neg (NEG) Urine Cannabinoids Screen Neg (NEG) Urine Ethyl Alcohol Neg (NEG) Laboratory Tests 08/04/20 16:58 Laboratory Tests 08/04/20 16:58 Vital Signs: Vital Signs Date Time Temp Pulse Resp B/P (MAP) Pulse Ox O2 Delivery O2 Flow Rate FiO2 08/04/20 18:07 18 97 Room Air 08/04/20 16:58 76 125/63 (83) 08/04/20 16:38 97.7 97.7 EKG: EKG: [] Radiology/Procedures: Radiology/Procedures: []PROCEDURE: PORTABLE CHEST 1V PORTABLE CHEST 1V Clinical indications: Shortness of air COMPARISON: June 14, 2020. Findings: No acute lung infiltrate or pleural effusion or pulmonary edema or lung mass or pneumothorax is seen. The heart size, pulmonary vasculature, mediastinum and both kai are unremarkable. Impression: No acute radiographic abnormality is seen. Electronically signed by: Bjorn Valerio MD (08/04/2020 5:01 PM) [id number] DICTATED and SIGNED BY: BJORN VALERIO MD DATE: 08/04/20 170 Course & Med Decision Making: Course & Med Decision Making Pertinent Labs and Imaging studies reviewed. (See chart for details) This is a 44-year-old female patient well-known to this ED for multiple visits who presents today complaining of cough, chest tightness, sore throat, body aches, symptoms for a week. Patient's work-up in the emergency room is negative for any acute findings. Upon discharge informed patient everything is negative. She asked for something for pain for home use. Recommended Tylenol or morphine. She states she is already taking Tylenol and Motrin and they are not helping. Informed patient she can take [id number] remedies, there is no indication for her to have prescription medicine for pain specifically narcotics. She requested something for nausea. Prescription for Zofran will be sent home with patient. Re Disclaimer: Re Disclaimer: This electronic medical record was generated, in whole or in part, using a voice recognition dictation system. Departure Departure Impression: Primary Impression: Person under investigation for COVID-19 Additional Impressions: Cough Viral illness Disposition: HOME, SELF-CARE Condition: STABLE Referrals: NO PCP (PCP) follow up in one week Patient Instructions: Cough, Adult, [id number] Additional Instructions: You were evaluated in the emergency room your work-up was negative. Follow-up with your doctor in 1 to 2 weeks. Come back to the ED at any point symptoms worsen. Scripts Albuterol Sulfate (PROAIR HFA INHALER) 8.5 Gm Hfa.aer.ad 2 PUFF IH PRN Q4-6HRS PRN for wheezing for 21 Days, #1 INHALER 0 Refills Prov: BALA FAJARDO APRN 08/04/20 Ondansetron (ONDANSETRON ODT) 4 Mg Tab.rapdis 1 TAB PO PRN Q6-8HRS, #16 TAB Prov: BALA FAJARDO APRN 08/04/20 Justicifation of Admission Dx: Justifications for Admission: Justification of Admission Dx: N/A BALA FAJARDO APRN Aug 04, 2020 18:35
[2020-08-04] MEDS ORDERED: ONDA4TAB12 PO (19:00)
[2020-08-04] MEDS ORDERED: ALBU2.5V8 IH (19:00)
[2020-08-04 19:08] VITALS: BP 109/76
--- NOTE | 2020-08-07 10:02 | NUR ---
IP: Attempted to call COVID results. Left voicemail for a call back.
--- NOTE | 2020-08-08 03:33 | EKG ---
[facility] [address] [place] [address] Test Date: 2020-08-04 Test Time: 16:34:42 Pat Name: TRACIE GAONA Department: Room: Gender: F An/Syq 13 Nav/C2 Operator: : 1975 Requested By: BALA FAJARDO Order Number: [id number] Reading MD: Measurements Intervals [place] Rate: 83 P: 34 [place]: 162 QRS: -2 QRSD: 90 T: 41 QT: 344 QTc: 410 Interpretive Statements SINUS RHYTHM LEFTWARD AXIS R-S TRANSITION ZONE IN V LEADS DISPLACED TO THE RIGHT OTHERWISE NORMAL ECG RI6.02 No previous ECG available for comparison
== END 2020-08-04 19:13 | disposition home or self-care (01) ==
LOC: ER 15:24
DX: B34.9 Viral infection, unspecified (principal); Z20.828 Contact with and (suspected) exposure to other viral communicable diseases; I11.0 Hypertensive heart disease with heart failure; I50.9 Heart failure, unspecified; E78.00 Pure hypercholesterolemia, unspecified; J44.9 Chronic obstructive pulmonary disease, unspecified; I25.2 Old myocardial infarction; Z86.73 Personal history of transient ischemic attack (TIA), and cerebral infarction without residual deficits; Z86.711 Personal history of pulmonary embolism; F17.200 Nicotine dependence, unspecified, uncomplicated; Z88.0 Allergy status to penicillin; Z88.1 Allergy status to other antibiotic agents; Z88.2 Allergy status to sulfonamides; Z88.4 Allergy status to anesthetic agent; Z91.041 Radiographic dye allergy status; Z88.6 Allergy status to analgesic agent; Z88.8 Allergy status to other drugs, medicaments and biological substances
CPT/HCPCS: 36415; 71045; 80053; 80307; 81001; 83605; 83690; 83735; 83880; 84145; 84443; 84484; 85025; 85610; 85730; 87040; 96374; 96375; 99285; J2270; J2405; J3010; U0003; 93005

== ENCOUNTER 2020-08-14 14:37 | Emergency (ER) | payer SELFPAY ==
[~2020-08-14] VITALS: Ht 172.7 cm; Wt 105.0 kg
[~2020-08-14 14:37] MED LIST changes: +ALBU2.5V8 IH
[2020-08-14] MEDS ORDERED: IV NORMAL SALINE 1000ML BAG 1,000 ML IV ONE (16:15)
[2020-08-14] MEDS ORDERED: ONDANSETRON PF 4 MG/2 ML VIAL. IVP ONE (16:15)
[2020-08-14 16:47] LABS: BILIRUBIN,URINE NEGATIVE (NEG); CLARITY,URINE CLEAR; COLOR,URINE YELLOW; NITRITE,URINE NEGATIVE (NEG); PH,URINE 5.5 (<5.0-8.0); PROTEIN,URINE NEGATIVE (NEG-TRACE); UROBILINOGEN,URINE 0.2 mg/dL (0.2 mg/dL)
--- NOTE | 2020-08-14 16:51 | RAD ---
CT abdomen pelvis without contrast dated 08/14/2020. Comparison made to 06/01/2020. Clinical data indication: Pain. TECHNIQUE: Contiguous axial imaging the M pelvis performed without the administration of IV or oral contrast. One or more of the following individualized dose reduction techniques were utilized for this examination: 1. Automated exposure control 2. Adjustment of the mA and/or kV according to patient size 3. Use of iterative reconstruction technique. FINDINGS: Limited images of lung bases show patchy groundglass density in the lower lobes bilaterally. Heart size within normal limits. No pleural or pericardial effusion. Solid abdominal viscera not well evaluated in the absence of contrast material. No apparent attenuation abnormality of the liver or spleen. Pancreas, adrenal glands unremarkable. The gallbladder is surgically absent. There are punctate calcific stones along the calyceal margins of each kidney measuring 3 mm in size or less. No calcific stone along the course of either ureter. No hydronephrosis. Partially opacified GI tract normal in caliber and contour. No focal bowel wall thickening. No inflammatory stranding in the mesentery. The appendix is not clearly identified. There is a prominent supra umbilical ventral hernia containing a portion of colon. No evidence of bowel obstruction. No adenopathy or ascites. Images of pelvis show nondistended urinary bladder. The uterus is surgically absent. No free fluid or lymphadenopathy. Bone windows show no acute findings. Mild multilevel spondylosis. IMPRESSION: 1. Bilateral nephrolithiasis, nonobstructive. 2. Mild patchy groundglass opacity at both lung bases, nonspecific but similar in appearance to prior exam. Could be related to chronic or recurrent acute inflammatory process. 3. Status post cholecystectomy and hysterectomy. 4. Prominent supraumbilical ventral hernia containing a portion of colon. No evidence of bowel obstruction. Electronically signed by: Spenser Macdonald MD (08/14/2020 4:48 PM) [facility]
[2020-08-14 16:54] LABS: BARBITURATES POS (NEG); BENZODIAZEPINES NEG (NEG); CANNABINOIDS NEG (NEG); COCAINE NEG (NEG); METHADONE NEG (NEG); OPIATES NEG (NEG); PHENCYCLIDINE NEG (NEG)
[2020-08-14 16:56] LABS: AMPHETAMINE/METHAMPHETAMINE NEG (NEG)
[2020-08-14] MEDS: MORPHINE SULFATE 4 MG/ML VIAL. IV/SQ PRN ×2 (17:01→18:49)
[2020-08-14 17:04] LABS: BASO # 0.1 x10^3/uL (0.0-0.2); BASO % 1 % (0-3); EOS # 0.5 x10^3/uL (0.0-0.7); EOS % 6 % (0-3); HEMATOCRIT 34.4 % (36.0-47.0); HEMOGLOBIN 11.8 g/dL (12.0-15.5); LYMPH # 3.2 x10^3/uL (1.0-4.8); LYMPH % 41 % (24-48); MEAN CORPUSCULAR HEMOGLOBIN 31 pg (25-35); MEAN CORPUSCULAR HGB CONC 35 g/dL (31-37); MEAN CORPUSCULAR VOLUME 91 fL (79-100); MONO # 0.6 x10^3/uL (0.0-1.1); MONO % 8 % (0-9); NEUT # 3.5 x10^3/uL (1.8-7.7); NEUT % 45 % (31-73); PLATELET COUNT 441 x10^3/uL (140-400); RED BLOOD COUNT 3.77 x10^6/uL (3.50-5.40); RED CELL DISTRIBUTION WIDTH 14.7 % (11.5-14.5); WHITE BLOOD COUNT 7.7 x10^3/uL (4.0-11.0)
[2020-08-14 17:10] LABS: CREATININE 0.9 mg/dL (0.6-1.0); POTASSIUM 4.2 mmol/L (3.5-5.1)
[2020-08-14 17:11] LABS: BACTERIA,URINE FEW /HPF (0-FEW)
[2020-08-14 17:16] LABS: ALBUMIN/GLOBULIN RATIO 1.1 (1.0-1.7); MAGNESIUM 2.1 mg/dL (1.8-2.4); TOTAL BILIRUBIN 0.3 mg/dL (0.2-1.0); TOTAL PROTEIN 7.6 g/dL (6.4-8.2)
--- NOTE | 2020-08-14 18:11 | PHYS DOC ---
Past Medical History Past Medical History: CHF, COPD, DVT, High Cholesterol, Hypertension, Kidney Stone, [place], P.U.D., Seizure, UTI, Other Additional Past Medical Histor: Pulmonary Embolism, Lupus, Bleeding Gastric Ulcers Past Surgical History: Appendectomy, Cholecystectomy, , Hysterectomy, Tonsillectomy, Other Additional Past Surgical Histo: IVC filter placed and removed,03/2020 Smoking Status: Current Every Day Smoker Alcohol Use: None Drug Use: None General Adult EDM: Chief Complaint: ABDOMINAL PAIN HPI: HPI: Patient is a 44 year old female with a history of chronic ventral hernia presenting to the ED today complaining of a 2-day episode of moderate pain around her hernia. Patient states the area feels firmer than normal. Patient denies any nausea, vomiting, diarrhea. She states she is following up with a general surgeon for possible surgery to the area. Review of Systems: Review of Systems: Constitutional: Denies fever or chills. [] Eyes: Denies change in visual acuity. [] HENT: Denies nasal congestion or sore throat. [] Respiratory: Denies cough or shortness of breath. [] Cardiovascular: Denies chest pain or edema. [] GI: Reports pain around her ventral hernia, denies nausea, vomiting, bloody stools or diarrhea. [] : Denies dysuria. [] Musculoskeletal: Denies back pain or joint pain. [] Integument: Denies rash. [] Neurologic: Denies headache, focal weakness or sensory changes. [] Psychiatric: Denies depression or anxiety. [] Heart Score: Risk Factors: Risk Factors: DM, Current or recent (<one month) smoker, HTN, HLP, family history of CAD, obesity. Risk Scores: Score 0 - 3: 2.5% MACE over next 6 weeks - Discharge Home Score 4 - 6: 20.3% MACE over next 6 weeks - Admit for Clinical Observation Score 7 - 10: 72.7% MACE over next 6 weeks - Early Invasive Strategies Current Medications: Current Medications Medications (Trade) Dose Ordered Sig/Tex Start Time Stop Time Status Last Admin Dose Admin Morphine Sulfate (Morphine Sulfate) 4 mg PRN Q15MIN PRN 08/14/20 16:15 08/15/20 16:14 08/14/20 17:01 4 MG Ondansetron HCl (Zofran) 4 mg 1X ONCE 08/14/20 16:15 08/14/20 16:19 DC 08/14/20 17:01 4 MG Sodium Chloride 1,000 ml @ 1,000 mls/hr 1X ONCE 08/14/20 16:15 08/14/20 17:14 DC 08/14/20 17:01 1,000 MLS/HR Allergies: Allergies: Allergies Coded Allergies Type Severity Reaction Last Updated Verified Iodine and Iodide Containing Produc Allergy Severe throat swelling to IV contrast 04/19/20 Yes sulfamethoxazole Allergy Severe SWELLING,TROUBLE BREATHING 05/27/20 Yes trimethoprim Allergy Severe SWELLING,TROUBLE BREATHING 05/27/20 Yes Cephalexin Monohydrate Allergy Intermediate SWELLING,TROUBLE BREATHING 04/16/20 Yes NSAIDS (Non-Steroidal Anti-Inflamma Allergy Intermediate 03/18/20 Yes Penicillins Allergy Intermediate SWELLING,TROUBLE BREATHING 04/16/20 Yes iodine Allergy Intermediate 03/18/20 Yes lidocaine Allergy Intermediate 03/18/20 Yes prochlorperazine edisylate Allergy Intermediate 03/18/20 Yes prochlorperazine maleate Allergy Intermediate 03/18/20 Yes Physical Exam: PE: Constitutional: Well developed, well nourished, no acute distress, non-toxic appearance. [] HENT: Normocephalic, atraumatic, bilateral external ears normal, oropharynx moist, no oral exudates, nose normal. [] Eyes: PERRLA, EOMI, conjunctiva normal, no discharge. [] Neck: Normal range of motion, no tenderness, supple, no stridor. [] Cardiovascular:Heart rate regular rhythm, no murmur [] Lungs & Thorax: Bilateral breath sounds clear to auscultation [] Abdomen: Old healed surgical incision noted midline abdomen, ventral hernia no margie that is reducible on its own, tenderness over the hernia, bowel sounds normal, soft, no masses, no pulsatile masses. [] Skin: Warm, dry, no erythema, no rash. [] Back: No tenderness, no CVA tenderness. [] Extremities: No tenderness, no cyanosis, no clubbing, ROM intact, no edema. [] Neurologic: Alert and oriented X 3, normal motor function, normal sensory function, no focal deficits noted. [] Psychologic: Affect normal, judgement normal, mood normal. [] Current Patient Data: Labs: Laboratory Tests Test 08/14/20 16:39 08/14/20 16:50 Urine Collection Type Unknown Urine Color Yellow Urine Clarity Clear Urine pH 5.5 (<5.0-8.0) Urine Specific Evans >=1.030 (1.000-1.030) Urine Protein Negative mg/dL (NEG-TRACE) Urine Glucose (UA) Negative mg/dL (NEG) Urine Ketones (Stick) Negative mg/dL (NEG) Urine Blood Negative (NEG) Urine Nitrite Negative (NEG) Urine Bilirubin Negative (NEG) Urine Urobilinogen Dipstick 0.2 mg/dL (0.2 mg/dL) Urine Leukocyte Esterase Negative (NEG) Urine RBC 1-2 /HPF (0-2) Urine WBC 1-4 /HPF (0-4) Urine Squamous Epithelial Cells Mod /LPF Urine Bacteria Few /HPF (0-FEW) Urine Mucus Mod /LPF Urine Opiates Screen Neg (NEG) Urine Methadone Screen Neg (NEG) Urine Barbiturates Pos (NEG) Urine Phencyclidine Screen Neg (NEG) Urine Amphetamine/Methamphetamine Neg (NEG) Urine Benzodiazepines Screen Neg (NEG) Urine Cocaine Screen Neg (NEG) Urine Cannabinoids Screen Neg (NEG) Urine Ethyl Alcohol Neg (NEG) White Blood Count 7.7 x10^3/uL (4.0-11.0) Red Blood Count 3.77 x10^6/uL (3.50-5.40) Hemoglobin 11.8 g/dL (12.0-15.5) L Hematocrit 34.4 % (36.0-47.0) L Mean Corpuscular Volume 91 fL (79-100) Mean Corpuscular Hemoglobin 31 pg (25-35) Mean Corpuscular Hemoglobin Concent 35 g/dL (31-37) Red Cell Distribution Width 14.7 % (11.5-14.5) H Platelet Count 441 x10^3/uL (140-400) H Neutrophils (%) (Auto) 45 % (31-73) Lymphocytes (%) (Auto) 41 % (24-48) Monocytes (%) (Auto) 8 % (0-9) Eosinophils (%) (Auto) 6 % (0-3) H Basophils (%) (Auto) 1 % (0-3) Neutrophils # (Auto) 3.5 x10^3/uL (1.8-7.7) Lymphocytes # (Auto) 3.2 x10^3/uL (1.0-4.8) Monocytes # (Auto) 0.6 x10^3/uL (0.0-1.1) Eosinophils # (Auto) 0.5 x10^3/uL (0.0-0.7) Basophils # (Auto) 0.1 x10^3/uL (0.0-0.2) Sodium Level 136 mmol/L (136-145) Potassium Level 4.2 mmol/L (3.5-5.1) Chloride Level 104 mmol/L (98-107) Carbon Dioxide Level 20 mmol/L (21-32) L Anion Gap 12 (6-14) Blood Urea Nitrogen 18 mg/dL (7-20) Creatinine 0.9 mg/dL (0.6-1.0) Estimated GFR (Cockcroft-Gault) 68.0 BUN/Creatinine Ratio 20 (6-20) Glucose Level 89 mg/dL (70-99) Calcium Level 9.0 mg/dL (8.5-10.1) Magnesium Level 2.1 mg/dL (1.8-2.4) Total Bilirubin 0.3 mg/dL (0.2-1.0) Aspartate Amino Transferase (AST) 10 U/L (15-37) L Alanine Aminotransferase (ALT) 16 U/L (14-59) Alkaline Phosphatase 88 U/L (46-116) Total Protein 7.6 g/dL (6.4-8.2) Albumin 4.0 g/dL (3.4-5.0) Albumin/Globulin Ratio 1.1 (1.0-1.7) Lipase 322 U/L (73-393) Ethyl Alcohol Level < 10 mg/dL (0-10) Laboratory Tests 08/14/20 16:50 Laboratory Tests 08/14/20 16:50 Vital Signs: Vital Signs Date Time Temp Pulse Resp B/P (MAP) Pulse Ox O2 Delivery O2 Flow Rate FiO2 08/14/20 16:31 99.1 70 16 118/82 (94) 99 Room Air 99.1 EKG: EKG: [] Radiology/Procedures: Radiology/Procedures: []REASON: abd pain ventral hernia? PROCEDURE: CT ABDOMEN PELVIS WO CONTRAST CT abdomen pelvis without contrast dated 08/14/2020. Comparison made to 06/01/2020. Clinical data indication: Pain. TECHNIQUE: Contiguous axial imaging the M pelvis performed without the administration of IV or oral contrast. One or more of the following individualized dose reduction techniques were utilized for this examination: 1. Automated exposure control 2. Adjustment of the mA and/or kV according to patient size 3. Use of iterative reconstruction technique. FINDINGS: Limited images of lung bases show patchy groundglass density in the lower lobes bilaterally. Heart size within normal limits. No pleural or pericardial effusion. Solid abdominal viscera not well evaluated in the absence of contrast material. No apparent attenuation abnormality of the liver or spleen. Pancreas, adrenal glands unremarkable. The gallbladder is surgically absent. There are punctate calcific stones along the calyceal margins of each kidney measuring 3 mm in size or less. No calcific stone along the course of either ureter. No hydronephrosis. Partially opacified GI tract normal in caliber and contour. No focal bowel wall thickening. No inflammatory stranding in the mesentery. The appendix is not clearly identified. There is a prominent supra umbilical ventral hernia containing a portion of colon. No evidence of bowel obstruction. No adenopathy or ascites. Images of pelvis show nondistended urinary bladder. The uterus is surgically absent. No free fluid or lymphadenopathy. Bone windows show no acute findings. Mild multilevel spondylosis. IMPRESSION: 1. Bilateral nephrolithiasis, nonobstructive. 2. Mild patchy groundglass opacity at both lung bases, nonspecific but similar in appearance to prior exam. Could be related to chronic or recurrent acute inflammatory process. 3. Status post cholecystectomy and hysterectomy. 4. Prominent supraumbilical ventral hernia containing a portion of colon. No evidence of bowel obstruction. Electronically signed by: Spenser Macdonald MD (08/14/2020 4:48 PM) [facility] [place] and SIGNED BY: SPENSER MACDONALD MD DATE: 08/14/20 0603 Course & Med Decision Making: Course & Med Decision Making Pertinent Labs and Imaging studies reviewed. (See chart for details) This is a 44-year-old female patient with history of chronic ventral hernia presenting to the ED today complaining the hernia is painful and firm. Patient was noted to have a reducible ventral hernia in the ED. Labs are negative for any acute findings. CT of the abdomen and pelvis are negative for any acute findings. Noted to have a ventral hernia that is not strangulated. Discharge to home to follow-up with a general surgeon. Patient has been begging for pain medicine in the ED. She was asking if we can give her any prescription, she is well-known to this ED. Recommended she follows up with the surgeon. Re Disclaimer: Re Disclaimer: This electronic medical record was generated, in whole or in part, using a voice recognition dictation system. Departure Departure Impression: Primary Impression: Ventral hernia Qualified Codes: K43.9 - Ventral hernia without obstruction or gangrene Disposition: HOME, SELF-CARE Condition: STABLE Referrals: NO PCP (PCP) EDWARD GARCIA MD follow up in one week with your surgeon Patient Instructions: Hernia Additional Instructions: You were evaluated in the emergency room for ventral hernia. Continue following up with a general surgeon. BALA FAJARDO TRIMMING PRESS OPERATOR Aug 14, 2020 18:11
[2020-08-14 18:59] VITALS: BP 138/72
== END 2020-08-14 19:02 | disposition home or self-care (01) ==
LOC: ER 14:37
DX: K43.9 Ventral hernia without obstruction or gangrene (principal); R10.9 Unspecified abdominal pain; I11.0 Hypertensive heart disease with heart failure; I50.9 Heart failure, unspecified; J44.9 Chronic obstructive pulmonary disease, unspecified; E78.00 Pure hypercholesterolemia, unspecified; I25.2 Old myocardial infarction; F17.200 Nicotine dependence, unspecified, uncomplicated; Z86.718 Personal history of other venous thrombosis and embolism; Z90.49 Acquired absence of other specified parts of digestive tract; Z90.89 Acquired absence of other organs; Z90.710 Acquired absence of both cervix and uterus; Z98.890 Other specified postprocedural states; Z87.442 Personal history of urinary calculi; Z91.041 Radiographic dye allergy status; Z88.2 Allergy status to sulfonamides; Z88.6 Allergy status to analgesic agent; Z88.8 Allergy status to other drugs, medicaments and biological substances; Z88.0 Allergy status to penicillin
CPT/HCPCS: 36415; 74176; 80053; 80307; 81001; 83690; 83735; 85025; 96361; 96374; 96375; 96376; 99284; G0480; J2270; J2405; J7030

== ENCOUNTER 2020-08-24 20:11 | Emergency (ER) | payer SELFPAY ==
[~2020-08-24] VITALS: Ht 172.7 cm; Wt 104.5 kg
[2020-08-24 20:37] VITALS: BP 164/87
--- NOTE | 2020-08-24 21:11 | PHYS DOC ---
Past Medical History Past Medical History: CHF, COPD, DVT, High Cholesterol, Hypertension, Kidney Stone, [place], P.U.D., Seizure, UTI, Other Additional Past Medical Histor: Pulmonary Embolism, Lupus, Bleeding Gastric Ulcers (BALA FAJARDO APRN) Past Surgical History: Appendectomy, Cholecystectomy, , Hysterectomy, Tonsillectomy, Other Additional Past Surgical Histo: IVC filter placed and removed,03/2020 (BALA FAJARDO APRN) Smoking Status: Current Every Day Smoker Alcohol Use: Occasionally Drug Use: None (BALA FAJARDO APRN) General Adult EDM: Chief Complaint: ABDOMINAL PAIN HPI: HPI: Patient is a 44 year old female with a history of ventral hernia presenting to the ED today complaining of moderate abdominal pain around her ventral hernia that has been going on since this afternoon after she bent over and coughed. Patient states her pain is worse when she touches her abdomen. Denies any nausea, vomiting. Denies any diarrhea. (BALA FAJARDO APRN) Review of Systems: Review of Systems: Constitutional: Denies fever or chills. [] Eyes: Denies change in visual acuity. [] HENT: Denies nasal congestion or sore throat. [] Respiratory: Denies cough or shortness of breath. [] Cardiovascular: Denies chest pain or edema. [] GI: Reports abdominal pain around her ventral hernia, denies nausea, vomiting, bloody stools or diarrhea. [] : Denies dysuria. [] Musculoskeletal: Denies back pain or joint pain. [] Integument: Denies rash. [] Neurologic: Denies headache, focal weakness or sensory changes. [] Psychiatric: Denies depression or anxiety. [] (BALA FAJARDO APRN) Heart Score: Risk Factors: Risk Factors: DM, Current or recent (<one month) smoker, HTN, HLP, family history of CAD, obesity. Risk Scores: Score 0 - 3: 2.5% MACE over next 6 weeks - Discharge Home Score 4 - 6: 20.3% MACE over next 6 weeks - Admit for Clinical Observation Score 7 - 10: 72.7% MACE over next 6 weeks - Early Invasive Strategies (BALA FAJARDO APRN) Allergies: Allergies: Allergies Coded Allergies Type Severity Reaction Last Updated Verified Iodine and Iodide Containing Produc Allergy Severe throat swelling to IV contrast 04/19/20 Yes sulfamethoxazole Allergy Severe SWELLING,TROUBLE BREATHING 05/27/20 Yes trimethoprim Allergy Severe SWELLING,TROUBLE BREATHING 05/27/20 Yes Cephalexin Monohydrate Allergy Intermediate SWELLING,TROUBLE BREATHING 04/16/20 Yes NSAIDS (Non-Steroidal Anti-Inflamma Allergy Intermediate 03/18/20 Yes Penicillins Allergy Intermediate SWELLING,TROUBLE BREATHING 04/16/20 Yes iodine Allergy Intermediate 03/18/20 Yes lidocaine Allergy Intermediate 03/18/20 Yes prochlorperazine edisylate Allergy Intermediate 03/18/20 Yes prochlorperazine maleate Allergy Intermediate 03/18/20 Yes (BALA FAJARDO APRN) Physical Exam: PE: Constitutional: Well developed, well nourished, no acute distress, non-toxic appearance. [] HENT: Normocephalic, atraumatic, bilateral external ears normal, oropharynx moist, no oral exudates, nose normal. [] Eyes: PERRLA, EOMI, conjunctiva normal, no discharge. [] Neck: Normal range of motion, no tenderness, supple, no stridor. [] Cardiovascular:Heart rate regular rhythm, no murmur [] Lungs & Thorax: Bilateral breath sounds clear to auscultation [] Abdomen: Old healed surgical incision noted midline abdomen. Bowel sounds normal, soft, ventral hernia noted that is reducible, tenderness over the ventral hernia, no masses, no pulsatile masses. [] Skin: Warm, dry, no erythema, no rash. [] Back: No tenderness, no CVA tenderness. [] Extremities: No tenderness, no cyanosis, no clubbing, ROM intact, no edema. [] Neurologic: Alert and oriented X 3, normal motor function, normal sensory function, no focal deficits noted. [] Psychologic: Affect normal, judgement normal, mood normal. [] (BALA FAJARDO APRN) Current Patient Data: Vital Signs: Vital Signs Date Time Temp Pulse Resp B/P (MAP) Pulse Ox O2 Delivery O2 Flow Rate FiO2 08/24/20 20:37 98.9 100 20 164/87 (112) 100 Room Air 98.9 (BALA FAJARDO APRN) EKG: EKG: [] (BALA FAJARDO APRN) Radiology/Procedures: Radiology/Procedures: [] (BALA FAJARDO APRN) Course & Med Decision Making: Course & Med Decision Making Pertinent Labs and Imaging studies reviewed. (See chart for details) This is a 44-year-old female patient presenting to the ED today with chronic abdominal pain from her ventral hernia. She has been worked up in the emergency room several times for this. I went to evaluate patient, she typically asks for pain medicine. Informed at this time we will try and get an ultrasound and labs and she can have Toradol. She states she is allergic to all NSAIDs because they make her face swell up and have a rash. Informed her she can have it with Solu-Medrol dose or Solu-Medrol alone. She states she does not want either of the medications. She states if we are not going to give me anything for pain she is going to leave. Informed it is up to her if she wants to live or not but would prefer to find source for the pain considering she has been in the ED multiple times recently and most of her work-ups for this ventral hernia have been negative. She stood up and left. (BALA FAJARDO APRN) Course & Med Decision Making I have reviewed the PA/AEROBICS INSTRUCTOR's note and Plan of Care. I was available for consultation as needed during the patient's visit in the emergency department. I agree with the clinical impression, plans and disposition. (MOHAN JACINTO MD) Dragon Disclaimer: Dragon Disclaimer: This electronic medical record was generated, in whole or in part, using a voice recognition dictation system. (BALA FAJARDO APRN) Departure Departure Impression: Primary Impression: Abdominal pain Qualified Codes: R10.9 - Unspecified abdominal pain Additional Impressions: Ventral hernia Qualified Codes: K43.9 - Ventral hernia without obstruction or gangrene Drug-seeking behavior Disposition: 07 AMA/ELOPED/LWBS Condition: STABLE Referrals: UNKNOWN PCP NAME (PCP) BALA FAJARDO APRN Aug 24, 2020 21:11 MOHAN JACINTO MD Aug 24, 2020 22:27
== END 2020-08-24 20:55 | disposition left against medical advice (07) ==
LOC: ER 20:11
DX: K43.9 Ventral hernia without obstruction or gangrene (principal); R10.9 Unspecified abdominal pain; J44.9 Chronic obstructive pulmonary disease, unspecified; I11.0 Hypertensive heart disease with heart failure; I50.9 Heart failure, unspecified; E78.00 Pure hypercholesterolemia, unspecified; I25.2 Old myocardial infarction; F17.200 Nicotine dependence, unspecified, uncomplicated; Z86.718 Personal history of other venous thrombosis and embolism; Z90.89 Acquired absence of other organs; Z90.710 Acquired absence of both cervix and uterus; Z90.49 Acquired absence of other specified parts of digestive tract; Z98.890 Other specified postprocedural states; Z91.041 Radiographic dye allergy status; Z88.2 Allergy status to sulfonamides; Z88.8 Allergy status to other drugs, medicaments and biological substances; Z88.0 Allergy status to penicillin; Z88.1 Allergy status to other antibiotic agents
CPT/HCPCS: 99281

== ENCOUNTER 2020-09-13 00:01 | Emergency (ER) | payer SELFPAY ==
[~2020-09-13] VITALS: Ht 172.7 cm; Wt 100.0 kg
[2020-09-13] MEDS ORDERED: IV NORMAL SALINE 1000ML BAG 1,000 ML IV ONE (00:15)
--- NOTE | 2020-09-13 00:20 | PHYS DOC ---
Past Medical History Past Medical History: CHF, COPD, DVT, High Cholesterol, Hypertension, Kidney Stone, [place], P.U.D., Seizure, UTI, Other Additional Past Medical Histor: Pulmonary Embolism, Lupus, Bleeding Gastric Ulcers Past Surgical History: Appendectomy, Cholecystectomy, , Hysterectomy, Tonsillectomy, Other Additional Past Surgical Histo: IVC filter placed and removed,03/2020 Smoking Status: Current Every Day Smoker Alcohol Use: Occasionally Drug Use: None General Adult EDM: Chief Complaint: POST-OP PROBLEM HPI: HPI: Patient is a 44 year old female who presented to ER today for evaluation of nausea and abdominal pain. Patient had multiple abdominal surgeries in the past, she had hernia operation recently at [facility] on September 04, 2020. Patient says since the operation she continues to have abdominal pain with nausea. Patient said whenever she eats she feels nauseous and vomit. Patient denies any fever. She is scheduled to see her surgeon at 930 am on 09/13/20. Review of Systems: Review of Systems: Constitutional: Denies fever or chills. [] Eyes: Denies change in visual acuity. [] HENT: Denies nasal congestion or sore throat. [] Respiratory: Denies cough or shortness of breath. [] Cardiovascular: Denies chest pain or edema. [] GI: Positive for abdominal pain, nausea, no vomiting, bloody stools or diarrhea. [] : Denies dysuria. [] Musculoskeletal: Denies back pain or joint pain. [] Integument: Denies rash. [] Neurologic: Denies headache, focal weakness or sensory changes. [] Endocrine: Denies polyuria or polydipsia. [] Lymphatic: Denies swollen glands. [] Psychiatric: Denies depression or anxiety. [] Heart Score: Risk Factors: Risk Factors: DM, Current or recent (<one month) smoker, HTN, HLP, family history of CAD, obesity. Risk Scores: Score 0 - 3: 2.5% MACE over next 6 weeks - Discharge Home Score 4 - 6: 20.3% MACE over next 6 weeks - Admit for Clinical Observation Score 7 - 10: 72.7% MACE over next 6 weeks - Early Invasive Strategies Current Medications: Current Medications Medications (Trade) Dose Ordered Sig/Tex Start Time Stop Time Status Last Admin Dose Admin Metoclopramide HCl (Reglan Vial) 10 mg 1X ONCE 09/13/20 00:15 09/13/20 00:16 UNV Morphine Sulfate (Morphine Sulfate) 4 mg 1X ONCE 09/13/20 00:15 09/13/20 00:16 UNV Sodium Chloride 1,000 ml @ 1,000 mls/hr 1X ONCE 09/13/20 00:15 09/13/20 01:14 UNV Allergies: Allergies: Allergies Coded Allergies Type Severity Reaction Last Updated Verified Iodine and Iodide Containing Produc Allergy Severe throat swelling to IV contrast 04/19/20 Yes sulfamethoxazole Allergy Severe SWELLING,TROUBLE BREATHING 05/27/20 Yes trimethoprim Allergy Severe SWELLING,TROUBLE BREATHING 05/27/20 Yes Cephalexin Monohydrate Allergy Intermediate SWELLING,TROUBLE BREATHING 04/16/20 Yes NSAIDS (Non-Steroidal Anti-Inflamma Allergy Intermediate 03/18/20 Yes Penicillins Allergy Intermediate SWELLING,TROUBLE BREATHING 04/16/20 Yes iodine Allergy Intermediate 03/18/20 Yes lidocaine Allergy Intermediate 03/18/20 Yes prochlorperazine edisylate Allergy Intermediate 03/18/20 Yes prochlorperazine maleate Allergy Intermediate 03/18/20 Yes Physical Exam: PE: Constitutional: Well developed, well nourished, no acute distress, non-toxic appearance. [] HENT: Normocephalic, atraumatic, bilateral external ears normal, oropharynx mo ist, no oral exudates, nose normal. [] Eyes: PERRLA, EOMI, conjunctiva normal, no discharge. [] Neck: Normal range of motion, no tenderness, supple, no stridor. [] Cardiovascular:Heart rate regular rhythm, no murmur [] Lungs & Thorax: Bilateral breath sounds clear to auscultation [] Abdomen: Bowel sounds normal, soft, There is diffused tenderness to palpation, There is tenderness along the the healed vertical wound from previous surgery.. no masses, no pulsatile masses. [] Skin: Warm, dry, no erythema, no rash. [] Back: No tenderness, no CVA tenderness. [] Extremities: No tenderness, no cyanosis, no clubbing, ROM intact, no edema. [] Neurologic: Alert and oriented X 3, normal motor function, normal sensory function, no focal deficits noted. [] Psychologic: Affect normal, judgement normal, mood normal. [] Current Patient Data: Labs: Laboratory Tests Test 09/13/20 01:07 09/13/20 02:29 White Blood Count 12.3 x10^3/uL Red Blood Count 3.49 x10^6/uL Hemoglobin 10.9 g/dL Hematocrit 32.7 % Mean Corpuscular Volume 94 fL Mean Corpuscular Hemoglobin 31 pg Mean Corpuscular Hemoglobin Concent 33 g/dL Red Cell Distribution Width 15.1 % Platelet Count 777 x10^3/uL Neutrophils (%) (Auto) 60 % Lymphocytes (%) (Auto) 21 % Monocytes (%) (Auto) 11 % Eosinophils (%) (Auto) 8 % Basophils (%) (Auto) 1 % Neutrophils # (Auto) 7.4 x10^3/uL Lymphocytes # (Auto) 2.6 x10^3/uL Monocytes # (Auto) 1.4 x10^3/uL Eosinophils # (Auto) 0.9 x10^3/uL Basophils # (Auto) 0.1 x10^3/uL Sodium Level 139 mmol/L Potassium Level 3.5 mmol/L Chloride Level 102 mmol/L Carbon Dioxide Level 23 mmol/L Anion Gap 14 Blood Urea Nitrogen 17 mg/dL Creatinine 1.0 mg/dL Estimated GFR (Cockcroft-Gault) 60.2 BUN/Creatinine Ratio 17 Glucose Level 99 mg/dL Calcium Level 9.4 mg/dL Total Bilirubin 0.3 mg/dL Aspartate Amino Transf (AST/SGOT) 10 U/L Alanine Aminotransferase (ALT/SGPT) 15 U/L Alkaline Phosphatase 95 U/L Total Protein 7.6 g/dL Albumin 3.3 g/dL Albumin/Globulin Ratio 0.8 Urine Collection Type Unknown Urine Color Yellow Urine Clarity Clear Urine pH 5.5 Urine Specific Hematite >=1.030 Urine Protein Negative mg/dL Urine Glucose (UA) Negative mg/dL Urine Ketones (Stick) Negative mg/dL Urine Blood Negative Urine Nitrite Negative Urine Bilirubin Small Urine Urobilinogen Dipstick 0.2 mg/dL Urine Leukocyte Esterase Negative Urine RBC 0 /HPF Urine WBC 1-4 /HPF Urine Squamous Epithelial Cells Mod /LPF Urine Amorphous Sediment Present /HPF Urine Bacteria Few /HPF Urine Hyaline Casts Few /HPF Urine Mucus Mod /LPF Current Medications Medications (Trade) Dose Ordered Sig/Tex Route PRN Reason Start Time Stop Time Status Last Admin Dose Admin Morphine Sulfate (Morphine Sulfate) 4 mg 1X ONCE IV 09/13/20 00:30 09/13/20 00:31 DC 09/13/20 01:03 Sodium Chloride 1,000 ml @ 1,000 mls/hr 1X ONCE IV 09/13/20 00:15 09/13/20 01:14 DC 09/13/20 00:56 Metoclopramide HCl (Reglan Vial) 10 mg 1X ONCE IVP 09/13/20 00:30 09/13/20 00:31 DC 09/13/20 00:57 Sodium Chloride 1,000 ml @ 1,000 mls/hr Q1H IV 09/13/20 00:30 09/13/20 01:29 DC 09/13/20 02:18 Morphine Sulfate (Morphine Sulfate) 4 mg 1X ONCE IV 09/13/20 03:00 09/13/20 03:01 DC 09/13/20 02:49 EKG: EKG: [] Radiology/Procedures: Radiology/Procedures: [][facility] [address] [place] [address] IMAGING REPORT Signed PATIENT: TRACIE GAONA SACCOUNT: [id number] : 1975 LOCATION: ER AGE: 44 SEX: F EXAM STATUS: REG ER ORD. PHYSICIAN: ALEXEI ODONNELL DO REASON: abdominal pain, recent hernia surgery on 09/04/20 PROCEDURE: CT ABDOMEN PELVIS WO CONTRAST EXAM: CT ABDOMEN/PELVIS WITHOUT CONTRAST. HISTORY: Abdominal pain, hernia surgery. TECHNIQUE: Computed tomography of the abdomen and pelvis was performed without intravenous contrast. One or more of the following individualized dose reduction techniques were utilized for this examination: 1. Automated exposure control. 2. Adjustment of the mA and/or kV according to patient size. 3. Use of iterative reconstruction technique. COMPARISON: None. FINDINGS: Lung windows through the visualized portions of the bases reveal mild atelectasis. Bone windows reveal no suspicious lesions. A supraumbilical hernia has a very thin neck 6 mm, but the hernia sac measures 6.0 x 4.8 x 9.4 cm. This contains mostly fluid, along with a small amount of fat and gas. A tiny focus of pneumoperitoneum on the right lower quadrant is likely postprocedural. The gallbladder is surgically absent. The liver, pancreas, adrenal glands, and spleen are unremarkable. A calculus in the left renal lower pole measures 4 mm. Tiny calculi on the right measure 2 mm or less. An infrarenal inferior vena cava filter is in place. There are no pathologically enlarged lymph nodes. The uterus is surgically absent. Small foci of soft tissue tissue gas along the right proximal thigh may reflect subcutaneous injections. There is no small bowel obstruction. IMPRESSION: 1. A residual/recurrent hernia in the supraumbilical territory has a thin neck at 6 mm, but a 9 cm sac. It contains fluid, a small amount of gas and a small amount of fat. 2. Trace pneumoperitoneum is likely postprocedural. 3. Bilateral renal calculi measure up to 4 mm on the left. Electronically signed by: Teo Caballero MD (09/13/2020 2:17 AM) [facility] DICTATED and SIGNED BY: BRANDON CABALLERO MD DATE: 09/13/20216 Course & Med Decision Making: Course & Med Decision Making Pertinent Labs and Imaging studies reviewed. (See chart for details) Patient is a 44-year-old female who presented to ER today for evaluation of abdominal pain and nausea. Patient had recent operation to fix her abdominal hernia at [facility] she is scheduled to see her surgeon today at 9:[address] scan did not show an obstruction, it does show a residual fluid- filled sac at the hernia area. Patient will need to follow-up with his surgeon today for further evaluation and treatment. Re Disclaimer: Re Disclaimer: This electronic medical record was generated, in whole or in part, using a voice recognition dictation system. Departure Departure Impression: Primary Impression: Postoperative abdominal pain Disposition: 01 DC HOME SELF CARE/HOMELESS Condition: IMPROVED Referrals: UNKNOWN PCP NAME (PCP) Please follow up with your surgeon as 930 am today as scheduled. Patient Instructions: Pain Relief Preoperatively and Postoperatively Additional Instructions: Thank you for visiting our Emergency Department. We appreciate you trusting us with your care. If any additional problems come up don't hesitate to return to visit us. Please follow up with your primary care provider so they can plan additional care if needed and know about the problem that you had. If symptoms worsen come back to the Emergency Department. Any concerning symptoms that start such as chest pain, shortness of air, weakness or numbness on one side of the body, running high fevers or any other concerning symptoms return to the ER. ALEXEI ODONNELL DO Sep 13, 2020 00:20
[2020-09-13] MEDS ORDERED: MORPHINE SULFATE 4 MG/ML VIAL. IV ONE ×2 (00:30→03:00)
[2020-09-13] MEDS ORDERED: METOCLOPRAMIDE HCL 10 MG/2 ML VIAL. IVP ONE (00:30)
[2020-09-13] MEDS ORDERED: IV NORMAL SALINE 1000ML BAG 1,000 ML IV SCH (00:30)
[2020-09-13 01:18] LABS: BASO # 0.1 x10^3/uL (0.0-0.2); BASO % 1 % (0-3); EOS # 0.9 x10^3/uL (0.0-0.7); EOS % 8 % (0-3); HEMATOCRIT 32.7 % (36.0-47.0); HEMOGLOBIN 10.9 g/dL (12.0-15.5); LYMPH # 2.6 x10^3/uL (1.0-4.8); LYMPH % 21 % (24-48); MEAN CORPUSCULAR HEMOGLOBIN 31 pg (25-35); MEAN CORPUSCULAR HGB CONC 33 g/dL (31-37); MEAN CORPUSCULAR VOLUME 94 fL (79-100); MONO # 1.4 x10^3/uL (0.0-1.1); MONO % 11 % (0-9); NEUT # 7.4 x10^3/uL (1.8-7.7); NEUT % 60 % (31-73); PLATELET COUNT 777 x10^3/uL (140-400); RED BLOOD COUNT 3.49 x10^6/uL (3.50-5.40); RED CELL DISTRIBUTION WIDTH 15.1 % (11.5-14.5); WHITE BLOOD COUNT 12.3 x10^3/uL (4.0-11.0)
[2020-09-13 01:29] LABS: CALCIUM 9.4 mg/dL (8.5-10.1); GFR 60.2; POTASSIUM 3.5 mmol/L (3.5-5.1)
[2020-09-13 01:35] LABS: ALBUMIN 3.3 g/dL (3.4-5.0); ALBUMIN/GLOBULIN RATIO 0.8 (1.0-1.7); TOTAL BILIRUBIN 0.3 mg/dL (0.2-1.0); TOTAL PROTEIN 7.6 g/dL (6.4-8.2)
--- NOTE | 2020-09-13 02:20 | RAD ---
EXAM: CT ABDOMEN/PELVIS WITHOUT CONTRAST. HISTORY: Abdominal pain, hernia surgery. TECHNIQUE: Computed tomography of the abdomen and pelvis was performed without intravenous contrast. One or more of the following individualized dose reduction techniques were utilized for this examination: 1. Automated exposure control. 2. Adjustment of the mA and/or kV according to patient size. 3. Use of iterative reconstruction technique. COMPARISON: None. FINDINGS: Lung windows through the visualized portions of the bases reveal mild atelectasis. Bone windows reveal no suspicious lesions. A supraumbilical hernia has a very thin neck 6 mm, but the hernia sac measures 6.0 x 4.8 x 9.4 cm. This contains mostly fluid, along with a small amount of fat and gas. A tiny focus of pneumoperitoneum on the right lower quadrant is likely postprocedural. The gallbladder is surgically absent. The liver, pancreas, adrenal glands, and spleen are unremarkable. A calculus in the left renal lower pole measures 4 mm. Tiny calculi on the right measure 2 mm or less. An infrarenal inferior vena cava filter is in place. There are no pathologically enlarged lymph nodes. The uterus is surgically absent. Small foci of soft tissue tissue gas along the right proximal thigh may reflect subcutaneous injections. There is no small bowel obstruction. IMPRESSION: 1. A residual/recurrent hernia in the supraumbilical territory has a thin neck at 6 mm, but a 9 cm sac. It contains fluid, a small amount of gas and a small amount of fat. 2. Trace pneumoperitoneum is likely postprocedural. 3. Bilateral renal calculi measure up to 4 mm on the left. Electronically signed by: Teo Caballero MD (09/13/2020 2:17 AM) [facility]
[2020-09-13 02:35] LABS: BILIRUBIN,URINE SMALL (NEG); CLARITY,URINE CLEAR; COLOR,URINE YELLOW; NITRITE,URINE NEGATIVE (NEG); PH,URINE 5.5 (<5.0-8.0); PROTEIN,URINE NEGATIVE (NEG-TRACE); UROBILINOGEN,URINE 0.2 mg/dL (0.2 mg/dL)
[2020-09-13 02:42] LABS: AMORPHOUS SEDIMENT,UR PRESENT /HPF; BACTERIA,URINE FEW /HPF (0-FEW); HYALINE CASTS, URINE FEW /HPF; RBC,URINE 0 /HPF (0-2)
[2020-09-13 02:56] VITALS: BP 124/86
== END 2020-09-13 03:26 | disposition home or self-care (01) ==
LOC: ER 00:01
DX: G89.18 Other acute postprocedural pain (principal); R10.9 Unspecified abdominal pain; R11.2 Nausea with vomiting, unspecified; I11.0 Hypertensive heart disease with heart failure; I50.9 Heart failure, unspecified; J44.9 Chronic obstructive pulmonary disease, unspecified; E78.00 Pure hypercholesterolemia, unspecified; I25.2 Old myocardial infarction; Z87.442 Personal history of urinary calculi; F17.200 Nicotine dependence, unspecified, uncomplicated; Z90.89 Acquired absence of other organs; Z90.710 Acquired absence of both cervix and uterus; Z90.49 Acquired absence of other specified parts of digestive tract; Z98.890 Other specified postprocedural states; Z91.040 Latex allergy status; Z88.2 Allergy status to sulfonamides; Z88.8 Allergy status to other drugs, medicaments and biological substances; Z88.1 Allergy status to other antibiotic agents; Z88.0 Allergy status to penicillin
CPT/HCPCS: 36415; 74176; 80053; 81001; 85025; 96361; 96374; 96375; 96376; 99285; J2270; J2765; J7030

== ENCOUNTER 2020-10-02 00:33 | Emergency (ER) | payer SELFPAY ==
[~2020-10-02] VITALS: Ht 172.7 cm; Wt 104.3 kg
[2020-10-02 01:15] VITALS: BP 156/63
--- NOTE | 2020-10-02 02:29 | ED.ADGEN ---
Past Medical History Past Medical History: CHF, COPD, DVT, High Cholesterol, Hypertension, Kidney Stone, [place], P.U.D., Seizure, UTI, Other Additional Past Medical Histor: Pulmonary Embolism, Lupus, Bleeding Gastric Ulcers Past Surgical History: Appendectomy, Cholecystectomy, , Hysterectomy, Tonsillectomy, Other Additional Past Surgical Histo: IVC filter placed and removed,03/2020 Smoking Status: Current Every Day Smoker Alcohol Use: Occasionally Drug Use: None General Adult EDM: Chief Complaint: POST-OP PROBLEM HPI: HPI: Patient is a 45-year-old female who presents to the emergency room complaining of pain around her drain site. Patient had been incisional hernia repair done several weeks ago. She had a drain placed and a seroma last week. She states that she accidentally pulled on the drain yesterday and since that time has had decreased output as well as significant pain. She has been taking Tylenol for pain at home. She denies having any pain medicine at home. She denies any nausea, vomiting, diarrhea, constipation, fever, chills, sweats. Review of Systems: Review of Systems: Complete ROS is negative unless otherwise documented in HPI Current Medications: Current Medications Medications (Trade) Dose Ordered Sig/Tex Start Time Stop Time Status Last Admin Dose Admin Ondansetron HCl (Zofran) 4 mg 1X ONCE 10/02/20 02:30 10/02/20 02:31 Allergies: Allergies: Allergies Coded Allergies Type Severity Reaction Last Updated Verified Iodine and Iodide Containing Produc Allergy Severe throat swelling to IV contrast 04/19/20 Yes sulfamethoxazole Allergy Severe SWELLING,TROUBLE BREATHING 05/27/20 Yes trimethoprim Allergy Severe SWELLING,TROUBLE BREATHING 05/27/20 Yes Cephalexin Monohydrate Allergy Intermediate SWELLING,TROUBLE BREATHING 04/16/20 Yes NSAIDS (Non-Steroidal Anti-Inflamma Allergy Intermediate 03/18/20 Yes Penicillins Allergy Intermediate SWELLING,TROUBLE BREATHING 04/16/20 Yes iodine Allergy Intermediate 03/18/20 Yes lidocaine Allergy Intermediate 03/18/20 Yes prochlorperazine edisylate Allergy Intermediate 03/18/20 Yes prochlorperazine maleate Allergy Intermediate 03/18/20 Yes Physical Exam: PE: General: Awake, alert, NAD. Well Nourished, well hydrated. Cooperative HEENT: Atraumatic, EOMI, PERRL, airway patent, moist oral mucosa Neck: Supple, trachea midline Respiratory: CTA bilaterally, normal effort, no wheezing/crackles CV: RRR, no murmur, cap refill <2 GI: Soft, nondistended, incisions C/D/I, drain in place with sutures in place, seroanguous fluid within drain. No surrounding swelling, erythema, drainage MSK: No obvious deformities Skin: Warm, dry, intact Neuro: A&O x3, speech NL, sensory and motor grossly intact, no focal deficits Psych: Normal affect, normal mood, not suicidal or homicidal Current Patient Data: Vital Signs: Vital Signs Date Time Temp Pulse Resp B/P (MAP) Pulse Ox O2 Delivery O2 Flow Rate FiO2 10/02/20 01:15 98.8 93 18 156/63 (94) 97 98.8 EKG: EKG: [] Heart Score: Risk Factors: Risk Factors: DM, Current or recent (<one month) smoker, HTN, HLP, family history of CAD, obesity. Risk Scores: Score 0 - 3: 2.5% MACE over next 6 weeks - Discharge Home Score 4 - 6: 20.3% MACE over next 6 weeks - Admit for Clinical Observation Score 7 - 10: 72.7% MACE over next 6 weeks - Early Invasive Strategies Radiology/Procedures: Radiology/Procedures: [] Course & Med Decision Making: Course & Med Decision Making Pertinent Labs and Imaging studies reviewed. (See chart for details) Patient is a 45-year-old female presents to the emergency room complaining of s ignificant abdominal pain. Drain appears to be intact and likely in place. Sutures are still in place around the drain and the drain is firmly in place. There is drainage noted in her tubing that appears to be normal drainage. Of note upon review of patient's record she has had multiple visits in the last couple of months to emergency room's at doctor's offices complaining of severe abdominal pain. She has received multiple prescriptions for narcotic pain medicine from multiple different providers. Her last prescription was written 2 days ago. Patient denied taking any narcotic pain medicine within the last week but has had 2 prescriptions written to her and filled within the last week. Patient requested pain medication and was informed that at this time we are uncomfortable giving her further narcotic pain medicine. Patient states that if we are unwilling to give her any pain medicine and she would like to leave. Patient is demonstrating drug-seeking behavior. Patient has requested to leave AGAINST MEDICAL ADVICE. I have discussed the benefits of staying for a full work up and the patient would like to leave. I discussed the risks of leaving including but not limited to , permenant end-organ damage, worsening of condition and patient stated understanding. Patient signed out against medical advice. Dragon Disclaimer: Dragon Disclaimer: This electronic medical record was generated, in whole or in part, using a voice recognition dictation system. Departure Departure Impression: Primary Impression: Intractable abdominal pain Additional Impressions: Left against medical advice Drug-seeking behavior Disposition: 07 AMA/ELOPED/LWBS Condition: STABLE Referrals: NO PCP (PCP) Problem Qualifiers JORGE L GARCIA MD Oct 02, 2020 02:29
[2020-10-02] MEDS ORDERED: ONDANSETRON PF 4 MG/2 ML VIAL. IVP ONE (02:30)
== END 2020-10-02 02:30 | disposition left against medical advice (07) ==
LOC: ER 00:33
DX: R10.9 Unspecified abdominal pain (principal); J44.9 Chronic obstructive pulmonary disease, unspecified; E78.00 Pure hypercholesterolemia, unspecified; I11.0 Hypertensive heart disease with heart failure; I50.9 Heart failure, unspecified; I25.2 Old myocardial infarction; F17.200 Nicotine dependence, unspecified, uncomplicated; Z90.49 Acquired absence of other specified parts of digestive tract; Z90.89 Acquired absence of other organs; Z76.5 Malingerer [conscious simulation]; Z90.710 Acquired absence of both cervix and uterus; Z98.890 Other specified postprocedural states; Z88.0 Allergy status to penicillin; Z88.1 Allergy status to other antibiotic agents; Z91.041 Radiographic dye allergy status; Z88.2 Allergy status to sulfonamides; Z88.8 Allergy status to other drugs, medicaments and biological substances
CPT/HCPCS: 99281

== ENCOUNTER 2020-11-09 19:37 | Emergency (ER) | payer OTHER ==
[~2020-11-09] VITALS: Ht 170.2 cm; Wt 82.0 kg
[~2020-11-09 19:37] MED LIST changes: +ACET500T68 PO; -CLIN300C8 PO; +CLIN300C9 PO; +POTA10TA12 PO
[2020-11-09] MEDS ORDERED: IV NORMAL SALINE 1000ML BAG 1,000 ML IV ONE (20:00)
[2020-11-09 20:05] LABS: BILIRUBIN,URINE NEGATIVE (NEG); CLARITY,URINE CLEAR; COLOR,URINE YELLOW; NITRITE,URINE NEGATIVE (NEG); PROTEIN,URINE 30 mg/dL (NEG-TRACE); UROBILINOGEN,URINE 0.2 mg/dL (0.2 mg/dL)
[2020-11-09 20:10] LABS: BACTERIA,URINE FEW /HPF (0-FEW)
[2020-11-09 20:17] LABS: HYALINE CASTS, URINE FEW /HPF; WBC,URINE >40 /HPF (0-4)
[2020-11-09 20:21] LABS: RBC,URINE OCC /HPF (0-2)
[2020-11-09 20:36] LABS: BASO # 0.1 x10^3/uL (0.0-0.2); BASO % 0 % (0-3); EOS # 0.3 x10^3/uL (0.0-0.7); EOS % 2 % (0-3); HEMATOCRIT 30.2 % (36.0-47.0); LYMPH # 1.5 x10^3/uL (1.0-4.8); LYMPH % 9 % (24-48); MEAN CORPUSCULAR HEMOGLOBIN 29 pg (25-35); MEAN CORPUSCULAR HGB CONC 33 g/dL (31-37); MEAN CORPUSCULAR VOLUME 87 fL (79-100); MONO # 0.8 x10^3/uL (0.0-1.1); MONO % 5 % (0-9); NEUT # 14.1 x10^3/uL (1.8-7.7); NEUT % 84 % (31-73); PLATELET COUNT 889 x10^3/uL (140-400); RED BLOOD COUNT 3.46 x10^6/uL (3.50-5.40); RED CELL DISTRIBUTION WIDTH 15.3 % (11.5-14.5); WHITE BLOOD COUNT 16.8 x10^3/uL (4.0-11.0)
[2020-11-09 20:45] LABS: CALCIUM 9.8 mg/dL (8.5-10.1); CREATININE 1.3 mg/dL (0.6-1.0); GFR 44.3; POTASSIUM 3.6 mmol/L (3.5-5.1)
[2020-11-09 20:50] LABS: ALBUMIN 2.8 g/dL (3.4-5.0); ALBUMIN/GLOBULIN RATIO 0.5 (1.0-1.7); TOTAL BILIRUBIN 0.3 mg/dL (0.2-1.0); TOTAL PROTEIN 8.1 g/dL (6.4-8.2)
[2020-11-09] MEDS ORDERED: ONDANSETRON PF 4 MG/2 ML VIAL. IVP ONE ×2 (21:00→22:30)
[2020-11-09] MEDS ORDERED: fentaNYL PF VIAL 100 MCG/2 ML VIAL IV ONE (21:00)
[2020-11-09] MEDS ORDERED: FAMOTIDINE 20 MG/2 ML VIAL IVP ONE (21:00)
[2020-11-09 21:27] LABS: % EOS 3 % (0-5); % LYMPHS 5 % (24-48); % MONOS 2 % (0-10); % SEGS 90 % (35-66); PLT ESTIMATE INCREASED (ADEQUATE); TOXIC GRANULATION SLIGHT; TOXIC VACUOLATION SLIGHT
[2020-11-09 21:28] LABS: ANISOCYTOSIS SLIGHT; HYPOCHROMIA SLIGHT; POLYCHROMASIA SLIGHT
[2020-11-09] MEDS ORDERED: MORPHINE SULFATE 4 MG/ML VIAL. IV ONE (22:30)
[2020-11-09] MEDS ORDERED: BARIUM SULFATE 2.1% 450 ML SUSP PO ONE (22:30)
--- NOTE | 2020-11-09 23:44 | PHYS DOC ---
Past Medical History Past Medical History: CHF, COPD, DVT, High Cholesterol, Hypertension, Kidney Stone, [place], P.U.D., Seizure, UTI, Other Additional Past Medical Histor: Pulmonary Embolism, Lupus, Bleeding Gastric Ulcers Past Surgical History: Appendectomy, Cholecystectomy, , Hysterectomy, Tonsillectomy, Other Additional Past Surgical Histo: IVC filter placed and removed,03/2020 Past Surgical History 10/30/2020: partial distal gastrectomy with bilroth 2 reconstruction, removal of mesh Smoking Status: Former Smoker Alcohol Use: Occasionally Drug Use: None General Adult EDM: Chief Complaint: ABDOMINAL PAIN HPI: HPI: Patient is a 45 year old female presents with 2-day history of epigastric abdominal pain. History of recent hospitalization with recurrent gastric ulceration requiring partial distal gastrectomy with bilroth 2 reconstruction and removal of mesh with Dr. Garcia (general surgery). Patient reports associated nausea and vomiting to the point she is unable to keep down any medications. Patient reports she has been taking Percocet at home without relief. Denies any diarrhea. Denies trauma. Denies known sick contacts. Review of Systems: Review of Systems: Constitutional: Denies fever or chills Eyes: Denies redness or eye pain HENT: Denies nasal congestion or sore throat Respiratory: Denies cough or shortness of breath Cardiovascular: Denies chest pain or palpitations GI: Reports abdominal pain, nausea, and vomiting; denies diarrhea : Denies dysuria or hematuria Musculoskeletal: Denies back pain or joint pain Integument: Denies rash or skin lesions Neurologic: Denies headache, focal weakness or sensory changes Complete systems were reviewed and found to be within normal limits, except as documented in this note. Current Medications: Current Medications Medications (Trade) Dose Ordered Sig/Tex Start Time Stop Time Status Last Admin Dose Admin Barium Sulfate (Readi-Cat 2) 450 ml 1X ONCE 11/09/20 22:30 11/09/20 22:31 DC Famotidine (Pepcid Vial) 20 mg 1X ONCE 11/09/20 21:00 11/09/20 21:01 DC 11/09/20 21:09 20 MG Fentanyl Citrate (Fentanyl 2ml Vial) 75 mcg 1X ONCE 11/09/20 21:00 11/09/20 21:01 DC 11/09/20 21:10 75 MCG Morphine Sulfate (Morphine Sulfate) 4 mg 1X ONCE 11/09/20 22:30 11/09/20 22:31 DC 11/09/20 22:34 4 MG Ondansetron HCl (Zofran) 4 mg 1X ONCE 11/09/20 22:30 11/09/20 22:31 DC 11/09/20 22:34 4 MG Sodium Chloride 1,000 ml @ 1,000 mls/hr 1X ONCE 11/09/20 20:00 11/09/20 20:59 DC 11/09/20 20:30 1,000 MLS/HR Allergies: Allergies: Allergies Coded Allergies Type Severity Reaction Last Updated Verified Iodine and Iodide Containing Produc Allergy Severe throat swelling to IV contrast 04/19/20 Yes sulfamethoxazole Allergy Severe SWELLING,TROUBLE BREATHING 05/27/20 Yes trimethoprim Allergy Severe SWELLING,TROUBLE BREATHING 05/27/20 Yes Cephalexin Monohydrate Allergy Intermediate SWELLING,TROUBLE BREATHING 04/16/20 Yes NSAIDS (Non-Steroidal Anti-Inflamma Allergy Intermediate 03/18/20 Yes Penicillins Allergy Intermediate SWELLING,TROUBLE BREATHING 04/16/20 Yes iodine Allergy Intermediate 03/18/20 Yes lidocaine Allergy Intermediate 03/18/20 Yes prochlorperazine edisylate Allergy Intermediate 03/18/20 Yes prochlorperazine maleate Allergy Intermediate 03/18/20 Yes Physical Exam: PE: Constitutional: Well developed, well nourished, uncomfortable, non-toxic appearance HENT: Normocephalic, atraumatic Eyes: Conjunctiva normal, no discharge Neck: Normal range of motion, no tenderness, supple Lungs & Thorax: No respiratory distress, equal chest rise and fall Abdomen: Soft, diffuse tenderness and voluntary guarding, midline vertical incision which is clean/dry/intact and without surrounding erythema Skin: Warm, dry, no erythema, no rash Extremities: No tenderness, ROM intact, no edema Neurologic: Alert and oriented X 3, no focal deficits noted Psychologic: Affect normal, judgment normal Current Patient Data: Labs: Laboratory Tests Test 11/09/20 19:46 11/09/20 20:30 Urine Collection Type Unknown Urine Color Yellow Urine Clarity Clear Urine pH 6.0 (<5.0-8.0) Urine Specific [place] 1.020 (1.000-1.030) Urine Protein 30 mg/dL (NEG-TRACE) Urine Glucose (UA) Negative mg/dL (NEG) Urine Ketones (Stick) Negative mg/dL (NEG) Urine Blood Negative (NEG) Urine Nitrite Negative (NEG) Urine Bilirubin Negative (NEG) Urine Urobilinogen Dipstick 0.2 mg/dL (0.2 mg/dL) Urine Leukocyte Esterase Moderate (NEG) Urine RBC Occ /HPF (0-2) Urine WBC >40 /HPF (0-4) Urine Squamous Epithelial Cells Mod /LPF Urine Bacteria Few /HPF (0-FEW) Urine Cellular Casts Mod /HPF Urine Hyaline Casts Few /HPF Urine Mucus Mod /LPF White Blood Count 16.8 x10^3/uL (4.0-11.0) H Red Blood Count 3.46 x10^6/uL (3.50-5.40) L Hemoglobin 10.0 g/dL (12.0-15.5) L Hematocrit 30.2 % (36.0-47.0) L Mean Corpuscular Volume 87 fL (79-100) Mean Corpuscular Hemoglobin 29 pg (25-35) Mean Corpuscular Hemoglobin Concent 33 g/dL (31-37) Red Cell Distribution Width 15.3 % (11.5-14.5) H Platelet Count 889 x10^3/uL (140-400) H Neutrophils (%) (Auto) 84 % (31-73) H Lymphocytes (%) (Auto) 9 % (24-48) L Monocytes (%) (Auto) 5 % (0-9) Eosinophils (%) (Auto) 2 % (0-3) Basophils (%) (Auto) 0 % (0-3) Neutrophils # (Auto) 14.1 x10^3/uL (1.8-7.7) H Lymphocytes # (Auto) 1.5 x10^3/uL (1.0-4.8) Monocytes # (Auto) 0.8 x10^3/uL (0.0-1.1) Eosinophils # (Auto) 0.3 x10^3/uL (0.0-0.7) Basophils # (Auto) 0.1 x10^3/uL (0.0-0.2) Segmented Neutrophils % 90 % (35-66) H Lymphocytes % 5 % (24-48) L Monocytes % 2 % (0-10) Eosinophils % 3 % (0-5) Toxic Granulation Slight Toxic Vacuolation Slight Platelet Estimate Increased (ADEQUATE) Polychromasia Slight Hypochromasia Slight Anisocytosis Slight Sodium Level 135 mmol/L (136-145) L Potassium Level 3.6 mmol/L (3.5-5.1) Chloride Level 98 mmol/L (98-107) Carbon Dioxide Level 21 mmol/L (21-32) Anion Gap 16 (6-14) H Blood Urea Nitrogen 17 mg/dL (7-20) Creatinine 1.3 mg/dL (0.6-1.0) H Estimated GFR (Cockcroft-Gault) 44.3 BUN/Creatinine Ratio 13 (6-20) Glucose Level 97 mg/dL (70-99) Calcium Level 9.8 mg/dL (8.5-10.1) Total Bilirubin 0.3 mg/dL (0.2-1.0) Aspartate Amino Transferase (AST) 9 U/L (15-37) L Alanine Aminotransferase (ALT) 23 U/L (14-59) Alkaline Phosphatase 143 U/L (46-116) H Total Protein 8.1 g/dL (6.4-8.2) Albumin 2.8 g/dL (3.4-5.0) L Albumin/Globulin Ratio 0.5 (1.0-1.7) L Lipase 42 U/L (73-393) L Laboratory Tests 11/09/20 20:30 Laboratory Tests 11/09/20 20:30 Vital Signs: Vital Signs Date Time Temp Pulse Resp B/P (MAP) Pulse Ox O2 Delivery O2 Flow Rate FiO2 11/09/20 22:34 18 98 11/09/20 19:40 98.4 100 111/82 (92) Room Air 98.4 EKG: EKG: [] Radiology/Procedures: Radiology/Procedures: PROCEDURE: CT ABD PEL W/ORAL CONTRST ONLY EXAM: CT Abdomen and Pelvis without IV contrast CLINICAL HISTORY: Reason: diffuse abdominal pain, hx of recent gopal patch;SCAN@1130 / Spl. Instructions: / History: . COMPARISON: none TECHNIQUE: Helical CT of the abdomen and pelvis was performed without the administration of IV contrast. Axial, coronal and sagittal reformatted images were generated. ---PQRS compliance statement - One or more of the following individualized dose reduction techniques were utilized for this study: 1. Automated exposure control 2. Adjustment of the mA and/or kV according to patient size 3. Use of iterative reconstruction technique--- FINDINGS: Lack of intravenous contrast limits evaluation of solid organs, vasculature, and lymph nodes. Lower chest: Linear and bandlike opacities lower lobes likely scarring/atelectasis. Abdomen and pelvis: Liver, spleen, adrenal glands and pancreas are unremarkable. Accounting for postcholecystectomy change, no biliary ductal dilatation. Several bilateral nonobstructing renal calculi are seen. No definite ureteral or bladder calculus is seen. No focal renal lesion. No hydronephrosis or hydroureter. Moderate colonic stool content is seen. No small or large bowel dilatation. Postoperative changes of gastric bypass is seen with systemic-small bowel anastomosis. Infiltration is seen along the gastrohepatic ligament and anterior marginal liver. No extraluminal contrast is seen. No discrete abnormal loculated fluid collection is identified. Small focus of gas is seen within the anterior subcutaneous soft tissues likely postsurgical. No abdominal or pelvic lymphadenopathy. A few prominent retroperitoneal lymph nodes are seen. IVC filter is seen. Subcutaneous nodule along the left anterior abdominal wall likely from subcutaneous injection. No abdominal or pelvic ascites. Bones: Osseous structures are grossly stable. No aggressive osseous lesion is seen. IMPRESSION: 1. Postsurgical changes of gastric bypass opacities without extraluminal contrast or evidence for leak/perforation. No discrete loculated fluid collection is identified. 2. Nonobstructing renal calculi bilaterally. 3. Moderate colonic stool content, most prominent in the left midabdomen, can be correlated for possible underlying constipation. Electronically signed by: Devan Dokcery MD (11/09/2020 11:49 PM) [facility] Course & Med Decision Making: Course & Med Decision Making Pertinent Labs and Imaging studies reviewed. (See chart for details) Patient presents with report of epigastric abdominal pain with history of recent surgery with partial distal gastrectomy with bilroth 2 reconstruction and removal of mesh for recurrent gastric ulcer. Symptomatic treatment provided. IV fluid hydration given. Labs obtained and posted to chart. UA with signs of active infection. Empiric antibiotic initiated CT abdomen/pelvis with barium contrast obtained due to Iodine allergy. CT with findings of constipation but without obstruction or leakage from surgical site. Patient stable for discharge with outpatient follow-up with PCP/general surgery. Discussed findings and plan with patient, who acknowledges understanding and agreement. Re Disclaimer: Re Disclaimer: This electronic medical record was generated, in whole or in part, using a voice recognition dictation system. Departure Departure Impression: Primary Impression: Abdominal pain Qualified Codes: R10.84 - Generalized abdominal pain Additional Impressions: Urinary tract infection Qualified Codes: N30.00 - Acute cystitis without hematuria Constipation Qualified Codes: K59.00 - Constipation, unspecified Disposition: 01 DC HOME SELF CARE/HOMELESS Condition: STABLE Referrals: NO PCP (PCP) EDWARD GARCIA MD Patient Instructions: Abdominal Pain (Nonspecific), Constipation, Adult, [id number], Urinary Tract Infection, [id number] Additional Instructions: Increase fluid hydration. Scripts Nitrofurantoin Monohyd/M-Cryst (MACROBID 100 MG CAPSULE) 100 Mg Capsule 1 CAP PO BID for 7 Days, #14 CAP 0 Refills Prov: GREGORIA SLAUGHTER DO 11/10/20 Polyethylene Glycol 3350 (MIRALAX) 119 Gm Powder 17 GM PO DAILY PRN for CONSTIPATION, #119 GM 0 Refills dissolve in water Prov: GREGORIA SLAUGHTER DO 11/10/20 Sennosides/Docusate Sodium (Colace 2-in-1 Tablet) 1 Each Tablet 1 TAB PO QHS for 30 Days, #30 TAB 0 Refills Prov: GREGORIA SLAUGHTER DO 11/10/20 Hydrocodone/Apap 5-325 (NORCO 5-325 TABLET) 1 Each Tablet 0.5-1 TAB PO PRN Q6HRS PRN for PAIN, #10 TAB 0 Refills Prov: GREGORIA SLAUGHTER DO 11/10/20 Ondansetron (ONDANSETRON ODT) 4 Mg Tab.rapdis 1 TAB PO PRN Q6-8HRS PRN for NAUSEA, #16 TAB Prov: GREGORIA SLAUGHTER DO 11/10/20 GREGORIA SLAUGHTER DO Nov 09, 2020 23:43
--- NOTE | 2020-11-09 23:52 | RAD ---
EXAM: CT Abdomen and Pelvis without IV contrast CLINICAL HISTORY: Reason: diffuse abdominal pain, hx of recent gopal patch;SCAN@1130 / Spl. Instruct ions: / History: . COMPARISON: none TECHNIQUE: Helical CT of the abdomen and pelvis was performed without the administration of IV contra st. Axial, coronal and sagittal reformatted images were generated. ---PQRS compliance statement - One or more of the following individualized dose reduction techniques were utilized for this study: 1. Automated exposure control 2. Adjustment of the mA and/or kV according to patient size 3. Use of iterative reconstruction technique--- FINDINGS: Lack of intravenous contrast limits evaluation of solid organs, vasculature, and lymph nodes. Lower chest: Linear and bandlike opacities lower lobes likely scarring/atelectasis. Abdomen and pelvis: Liver, spleen, adrenal glands and pancreas are unremarkable. Accounting for postcholecystectomy marley e, no biliary ductal dilatation. Several bilateral nonobstructing renal calculi are seen. No definite ureteral or bladder calculus is seen. No focal renal lesion. No hydronephrosis or hydroureter. Moderate colonic stool content is seen. No small or large bowel dilatation. Postoperative changes of gastric bypass is seen with systemic-small bowel anastomosis. Infiltration is seen along the gastrohe patic ligament and anterior marginal liver. No extraluminal contrast is seen. No discrete abnormal lo culated fluid collection is identified. Small focus of gas is seen within the anterior subcutaneous soft tissues likely postsurgical. No abdominal or pelvic lymphadenopathy. A few prominent retroperitoneal lymph nodes are seen. IVC steven ter is seen. Subcutaneous nodule along the left anterior abdominal wall likely from subcutaneous inje ction. No abdominal or pelvic ascites. Bones: Osseous structures are grossly stable. No aggressive osseous lesion is seen. IMPRESSION: 1. Postsurgical changes of gastric bypass opacities without extraluminal contrast or evidence for le ak/perforation. No discrete loculated fluid collection is identified. 2. Nonobstructing renal calculi bilaterally. 3. Moderate colonic stool content, most prominent in the left midabdomen, can be correlated for poss ible underlying constipation. Electronically signed by: Devan Dockery MD (11/09/2020 11:49 PM) [facility]
[2020-11-10] MEDS ORDERED: ONDA4TAB12 PO (01:05)
[2020-11-10] MEDS ORDERED: POLY119P4 PO (01:05)
[2020-11-10] MEDS ORDERED: NITR100C62 PO (01:05)
[2020-11-10] MEDS ORDERED: HYDR-3164 PO (01:05)
[2020-11-10] MEDS ORDERED: SENN-121 PO (01:05)
[2020-11-10] MEDS ORDERED: NITROFURANTOIN MONOHYD/M-CRYST 100 MG CAPSULE. PO ONE (01:30)
[2020-11-10] MEDS ORDERED: MORPHINE SULFATE 4 MG/ML VIAL. IV ONE (01:30)
[2020-11-10 01:32] VITALS: BP 137/88
== END 2020-11-10 01:38 | disposition admitted as inpatient to this hospital (09) ==
LOC: ER 19:37
DX: N30.00 Acute cystitis without hematuria (principal); K59.00 Constipation, unspecified; R10.84 Generalized abdominal pain; R11.2 Nausea with vomiting, unspecified; R10.13 Epigastric pain; J44.9 Chronic obstructive pulmonary disease, unspecified; I11.0 Hypertensive heart disease with heart failure; I50.9 Heart failure, unspecified; E78.00 Pure hypercholesterolemia, unspecified; I25.2 Old myocardial infarction; Z90.49 Acquired absence of other specified parts of digestive tract; Z90.89 Acquired absence of other organs; Z98.890 Other specified postprocedural states; Z87.891 Personal history of nicotine dependence; Z86.718 Personal history of other venous thrombosis and embolism; Z91.041 Radiographic dye allergy status; Z88.2 Allergy status to sulfonamides; Z88.8 Allergy status to other drugs, medicaments and biological substances; Z88.0 Allergy status to penicillin
CPT/HCPCS: 36415; 74176; 80053; 81001; 83690; 85007; 85025; 87086; 96361; 96374; 96375; 96376; 99284; J2270; J2405; J3010; J3490; J7030

== ENCOUNTER 2020-11-11 11:52 | Inpatient (IN) | payer OTHER ==
[~2020-11-11] VITALS: Ht 172.7 cm; Wt 104.0 kg
[~2020-11-11 11:52] MED LIST changes: +DOXY-181 PO; -DOXY100C14 PO; -LISI-334 PO; +LISI20TA18 PO; +POLY119P4 PO
--- NOTE | 2020-11-11 14:01 | PHYS DOC ---
Past Medical History Past Medical History: CHF, COPD, DVT, High Cholesterol, Hypertension, Kidney Stone, [place], P.U.D., Seizure, UTI, Other Additional Past Medical Histor: Pulmonary Embolism, Lupus, Bleeding Gastric Ulcers (ALEXEI ODONNELL DO) Past Surgical History: Appendectomy, Cholecystectomy, , Hysterectomy, Tonsillectomy, Other Additional Past Surgical Histo: IVC filter placed and removed,03/2020, ABD SURGERY 10/30/2020 (ALEXEI ODONNELL DO) Smoking Status: Former Smoker Alcohol Use: Occasionally Drug Use: None (ALEXEI ODONNELL DO) General Adult EDM: Chief Complaint: ABDOMINAL PAIN HPI: HPI: Patient is a 45 year old female who presented to ER for evaluation of abdominal pain with nausea vomiting. Patient has been evaluated multiple times for the same problem. Patient was admitted here on October 23, 2020 due to intractable abdominal pain. On October 30, 2020, patient had partial distal gastrectomy with bilroth 2 reconstruction, removal of mesh. Patient was discharged home on November 08, 2020. Patient came back to ER the next day due to abdominal pain with nausea vomiting. CT scan of her abdomen and pelvic did not show any acute problem. Patient was sent home from the ER with pain medication, nausea medication, came back here today because she continues have pain with nausea and vomiting. Patient denies any fever. Patient denies any chest pain, no trouble breathing, no cough, no fever. (ALEXEI ODONNELL DO) Review of Systems: Review of Systems: Constitutional: Denies fever or chills. [] Eyes: Denies change in visual acuity. [] HENT: Denies nasal congestion or sore throat. [] Respiratory: Denies cough or shortness of breath. [] Cardiovascular: Denies chest pain or edema. [] GI: Positive for abdominal pain, nausea vomiting. : Denies dysuria. [] Musculoskeletal: Denies back pain or joint pain. [] Integument: Denies rash. [] Neurologic: Denies headache, focal weakness or sensory changes. [] Endocrine: Denies polyuria or polydipsia. [] Lymphatic: Denies swollen glands. [] Psychiatric: Denies depression or anxiety. [] (ALEXEI ODONNELL DO) Heart Score: Risk Factors: Risk Factors: DM, Current or recent (<one month) smoker, HTN, HLP, family history of CAD, obesity. Risk Scores: Score 0 - 3: 2.5% MACE over next 6 weeks - Discharge Home Score 4 - 6: 20.3% MACE over next 6 weeks - Admit for Clinical Observation Score 7 - 10: 72.7% MACE over next 6 weeks - Early Invasive Strategies (ALEXEI ODONNELL DO) Allergies: Allergies: Allergies Coded Allergies Type Severity Reaction Last Updated Verified Iodine and Iodide Containing Produc Allergy Severe throat swelling to IV contrast 04/19/20 Yes sulfamethoxazole Allergy Severe SWELLING,TROUBLE BREATHING 05/27/20 Yes trimethoprim Allergy Severe SWELLING,TROUBLE BREATHING 05/27/20 Yes Cephalexin Monohydrate Allergy Intermediate SWELLING,TROUBLE BREATHING 04/16/20 Yes NSAIDS (Non-Steroidal Anti-Inflamma Allergy Intermediate 03/18/20 Yes Penicillins Allergy Intermediate SWELLING,TROUBLE BREATHING 04/16/20 Yes iodine Allergy Intermediate 03/18/20 Yes lidocaine Allergy Intermediate 03/18/20 Yes prochlorperazine edisylate Allergy Intermediate 03/18/20 Yes prochlorperazine maleate Allergy Intermediate 03/18/20 Yes (ALEXEI ODONNELL DO) Physical Exam: PE: Constitutional: Well developed, well nourished, no acute distress, non-toxic appearance. [] HENT: Normocephalic, atraumatic, bilateral external ears normal, oropharynx moist, no oral exudates, nose normal. [] Eyes: PERRLA, EOMI, conjunctiva normal, no discharge. [] Neck: Normal range of motion, no tenderness, supple, no stridor. [] Cardiovascular:Heart rate regular rhythm, no murmur [] Lungs & Thorax: Bilateral breath sounds clear to auscultation [] Abdomen: Bowel sounds normal, There is a healed vertical incision scar, no drainage. NORMAL BOWEL SOUND. There is tenderness to palpation along the scar area. Skin: Warm, dry, no erythema, no rash. [] Back: No tenderness, no CVA tenderness. [] Extremities: No tenderness, no cyanosis, no clubbing, ROM intact, no edema. [] Neurologic: Alert and oriented X 3, normal motor function, normal sensory function, no focal deficits noted. [] Psychologic: Affect normal, judgement normal, mood normal. [] (ALEXEI ODONNELL DO) Current Patient Data: Labs: Laboratory Tests Test 11/11/20 13:20 11/11/20 17:45 Urine Opiates Screen Pos Urine Methadone Screen Neg Urine Barbiturates Neg Urine Phencyclidine Screen Neg Urine Amphetamine/Methamphetamine Neg Urine Benzodiazepines Screen Neg Urine Cocaine Screen Neg Urine Cannabinoids Screen Neg Urine Ethyl Alcohol Neg White Blood Count 12.9 x10^3/uL Red Blood Count 3.39 x10^6/uL Hemoglobin 9.9 g/dL Hematocrit 29.6 % Mean Corpuscular Volume 87 fL Mean Corpuscular Hemoglobin 29 pg Mean Corpuscular Hemoglobin Concent 33 g/dL Red Cell Distribution Width 15.8 % Platelet Count 859 x10^3/uL Neutrophils (%) (Auto) 73 % Lymphocytes (%) (Auto) 18 % Monocytes (%) (Auto) 7 % Eosinophils (%) (Auto) 2 % Basophils (%) (Auto) 1 % Neutrophils # (Auto) 9.4 x10^3/uL Lymphocytes # (Auto) 2.3 x10^3/uL Monocytes # (Auto) 0.9 x10^3/uL Eosinophils # (Auto) 0.3 x10^3/uL Basophils # (Auto) 0.1 x10^3/uL Sodium Level 136 mmol/L Potassium Level 3.6 mmol/L Chloride Level 100 mmol/L Carbon Dioxide Level 20 mmol/L Anion Gap 16 Blood Urea Nitrogen 17 mg/dL Creatinine 1.0 mg/dL Estimated GFR (Cockcroft-Gault) 60.0 BUN/Creatinine Ratio 17 Glucose Level 83 mg/dL Calcium Level 9.5 mg/dL Magnesium Level 2.1 mg/dL Total Bilirubin 0.2 mg/dL Aspartate Amino Transf (AST/SGOT) 11 U/L Alanine Aminotransferase (ALT/SGPT) 18 U/L Alkaline Phosphatase 125 U/L Total Protein 7.5 g/dL Albumin 2.7 g/dL Albumin/Globulin Ratio 0.6 Salicylates Level < 2.8 mg/dL Salicylate Last Dose Date Unknown Salicylate Last Dose Time Unknown Acetaminophen Level < 2 mcg/ml Acetaminophen Last Dose Date Unknown Acetaminophen Last Dose Time Unknown Ethyl Alcohol Level < 10 mg/dL Current Medications Medications (Trade) Dose Ordered Sig/Tex Route PRN Reason Start Time Stop Time Status Last Admin Dose Admin Ondansetron HCl (Zofran Odt) 4 mg 1X ONCE PO 11/11/20 15:00 11/11/20 15:01 DC Ziprasidone (Geodon Im) 20 mg STK-MED ONCE IM 11/11/20 15:10 11/11/20 15:10 DC Lorazepam (Ativan Inj) 2 mg 1X ONCE IM 11/11/20 15:30 11/11/20 15:31 DC 11/11/20 15:30 Ziprasidone (Geodon Im) 20 mg 1X ONCE IM 11/11/20 15:14 11/11/20 15:32 DC 11/11/20 15:14 Acetaminophen (Tylenol) 1,000 mg 1X ONCE PO 11/11/20 18:30 11/11/20 18:31 DC 11/11/20 18:30 Vital Signs: Vital Signs Date Time Temp Pulse Resp B/P (MAP) Pulse Ox O2 Delivery O2 Flow Rate FiO2 11/11/20 13:20 98.3 108 20 174/92 (119) 95 Room Air 98.3 (ALEXEI ODONNELL DO) EKG: EKG: [] (ALEXEI ODONNELL DO) EKG: EKG performed at 1948 heart rate [address] elevation no ST depression no acute [place]. (ANDREAS CELIS DO) Radiology/Procedures: Radiology/Procedures: [] (ALEXEI ODONNELL DO) Course & Med Decision Making: Course & Med Decision Making Pertinent Labs and Imaging studies reviewed. (See chart for details) I told patient that I will need to look at her medical records, review her history and lab works before I can give her any pain medication. Patient seemed to be okay with that, however patient told the nurse that she wanted to go home. Her nurse told her that she will need to sign out against medical advise. It was reported that patient was standing in front of her room, saying out loud that she is going to go home to kill herself because she is tired of the pain. LATHA LEUNG was called. Patient was fighting to get out of the ER. Patient was informed that she will need to stay so a professional mental neurological surgeon will come in to evaluate her. Patient was not happy with it, she threatened to leave [facility] [place]. A restrain was ordered. Patient was endorsed to Dr. Celis at shift change. (ALEXEI ODONNELL DO) Course & Med Decision Making Assumed care at shift change. Patient evaluated by PA team. Patient to be placed. Placement pending. --- Unable to obtain placement tonight. Patient will be admitted to the hospitalist pending placement. (ANDREAS CELIS DO) Re Disclaimer: Re Disclaimer: This electronic medical record was generated, in whole or in part, using a voice recognition dictation system. (ALEXEI ODONNELL DO) Departure Departure Impression: Primary Impression: Narcotic dependence Additional Impressions: Suicidal ideation Abdominal pain Disposition: ADMITTED INPT THIS HOSP Condition: STABLE Referrals: NO PCP (PCP) ALEXEI ODONNELL DO Nov 11, 2020 14:01 ANDREAS CELIS DO Nov 11, 2020 18:58
[2020-11-11] MEDS ORDERED: ONDANSETRON ODT 4 MG TAB.RAPDIS. PO ONE (15:00)
[2020-11-11] MEDS ORDERED: ZIPRASIDONE IM 20 MG VIAL. IM ONE ×3 (15:10→22:09)
[2020-11-11 15:14] LABS: BARBITURATES NEG (NEG); BENZODIAZEPINES NEG (NEG); CANNABINOIDS NEG (NEG); COCAINE NEG (NEG); METHADONE NEG (NEG); OPIATES POS (NEG); PHENCYCLIDINE NEG (NEG)
[2020-11-11 15:23] LABS: AMPHETAMINE/METHAMPHETAMINE NEG (NEG)
[2020-11-11 17:57] LABS: BASO # 0.1 x10^3/uL (0.0-0.2); BASO % 1 % (0-3); EOS # 0.3 x10^3/uL (0.0-0.7); EOS % 2 % (0-3); HEMATOCRIT 29.6 % (36.0-47.0); HEMOGLOBIN 9.9 g/dL (12.0-15.5); LYMPH # 2.3 x10^3/uL (1.0-4.8); LYMPH % 18 % (24-48); MEAN CORPUSCULAR HEMOGLOBIN 29 pg (25-35); MEAN CORPUSCULAR HGB CONC 33 g/dL (31-37); MEAN CORPUSCULAR VOLUME 87 fL (79-100); MONO # 0.9 x10^3/uL (0.0-1.1); MONO % 7 % (0-9); NEUT # 9.4 x10^3/uL (1.8-7.7); NEUT % 73 % (31-73); PLATELET COUNT 859 x10^3/uL (140-400); RED BLOOD COUNT 3.39 x10^6/uL (3.50-5.40); RED CELL DISTRIBUTION WIDTH 15.8 % (11.5-14.5); WHITE BLOOD COUNT 12.9 x10^3/uL (4.0-11.0)
[2020-11-11 18:05] LABS: CALCIUM 9.5 mg/dL (8.5-10.1); POTASSIUM 3.6 mmol/L (3.5-5.1)
[2020-11-11 18:09] LABS: ACETAMIN < 2 mcg/ml (10-30); ETHANOL < 10 mg/dL (0-10); SALIC < 2.8 mg/dL (2.8-20.0)
[2020-11-11 18:20] LABS: ALBUMIN 2.7 g/dL (3.4-5.0); ALBUMIN/GLOBULIN RATIO 0.6 (1.0-1.7); MAGNESIUM 2.1 mg/dL (1.8-2.4); TOTAL BILIRUBIN 0.2 mg/dL (0.2-1.0); TOTAL PROTEIN 7.5 g/dL (6.4-8.2)
--- NOTE | 2020-11-11 18:22 | RAD ---
EXAM: Abdomen acute complete. HISTORY: Pain. COMPARISON: 10/30/2020 FINDINGS: A frontal view of the chest and frontal upright and supine views of abdomen are obtained. T here is no infiltrate, pleural effusion or pneumothorax. The heart is normal in size. There is contra st, gas and stool within the colon. There is no evidence of bowel obstruction. There is no free air. There are cholecystectomy clips. There is an IVC filter in expected position. IMPRESSION: 1. No acute pulmonary finding. 2. Nonobstructive bowel gas pattern. Electronically signed by: Diandra Dumont MD (11/11/2020 6:20 PM) [place]
[2020-11-11] MEDS ORDERED: ACETAMINOPHEN 500 MG TABLET PO ONE (18:30)
[2020-11-11] MEDS ORDERED: DICYCLOMINE 20 MG/2 ML VIAL. IM ONE ×2 (19:45→19:47)
[2020-11-11 20:18] LABS: BILIRUBIN,URINE NEGATIVE (NEG); CLARITY,URINE CLEAR; COLOR,URINE YELLOW; NITRITE,URINE NEGATIVE (NEG); PROTEIN,URINE 30 mg/dL (NEG-TRACE); UROBILINOGEN,URINE 0.2 mg/dL (0.2 mg/dL)
[2020-11-11 20:26] LABS: BACTERIA,URINE 0 /HPF (0-FEW); RBC,URINE 0 /HPF (0-2)
[2020-11-11 20:32] LABS: HYALINE CASTS, URINE MODERATE /HPF
[2020-11-11 20:33] LABS: WBC,URINE 20-40 /HPF (0-4)
[2020-11-11] MEDS ORDERED: ONDANSETRON PF 4 MG/2 ML VIAL. IV PRN (21:15)
[2020-11-11] MEDS ORDERED: ONDANSETRON ODT 4 MG TAB.RAPDIS. ONE (23:33)
[2020-11-11] MEDS: ACETAMINOPHEN 325 MG TABLET. PO PRN (23:52)
[2020-11-12] MEDS ORDERED: ONDANSETRON ODT 4 MG TAB.RAPDIS. PO PRN
[2020-11-12] MEDS ORDERED: ZIPRASIDONE IM 20 MG VIAL. IM ONE (00:30)
[2020-11-12] MEDS: ACETAMINOPHEN 325 MG TABLET. PO PRN (01:02)
[2020-11-12] MEDS ORDERED: MORPHINE SULFATE 4 MG/ML VIAL. IV PRN (04:00)
[2020-11-12 07:00] VITALS: BP 118/67
--- NOTE | 2020-11-12 07:41 | EKG ---
[facility] [address] [place] [id number] Test Date: 2020-11-11 Test Time: 19:48:57 Pat Name: TRACIE GAONA Department: Room: ED HOLD 3 Gender: F Clutch Inspector: : [id number] Requested By: ANDREAS VALDERRAMA Order Number: [id number] Reading MD: Cesar Alvarez Measurements Intervals [place] Rate: 96 P: 7 NE: 164 QRS: 6 QRSD: 92 T: 38 QT: 362 QTc: 464 Interpretive Statements SINUS RHYTHM Electronically Signed On 11-14-2020 13:54:11 COMMERCIAL REAL ESTATE ASSISTANT by Cesar Alvarez
--- NOTE | 2020-11-12 08:28 | PDOC1 ---
History and Physical Date of Service: DOS: DATE: 11/12/20 TIME: 08:26 Chief Complaint: Chief Complain: SI and ABD pain History of Present Illness: HPI: 45 year old female who presented to ER for evaluation of abdominal pain with nausea vomiting. Patient has been evaluated multiple times for the same problem. Patient was admitted here on October 23, 2020 due to intractable abdominal pain. On October 30, 2020, patient had partial distal gastrectomy with bilroth 2 reconstruction, removal of mesh. Patient was discharged home on November 08, 2020. Patient came back to ER the next day due to abdominal pain with nausea vomiting. CT scan of her abdomen and pelvic did not show any acute problem. Patient was sent home from the ER with pain medication, nausea medication, came back here today because she continues have pain with nausea and vomiting. Patient denies any fever. Patient denies any chest pain, no trouble breathing, no cough, no fever. Past Medical/Surgical History: PMH/PSH: Past Medical History: CHF, COPD, DVT, High Cholesterol, Hypertension, Kidney Stone, [place], P.U.D., Seizure, UTI, Pulmonary Embolism, Lupus, Bleeding Gastric Ulcers Past Surgical History: Appendectomy, Cholecystectomy, , Hysterectomy, Tonsillectomy, IVC filter placed and removed,03/2020, ABD SURGERY 10/30/2020 Allergies: Allergies: Coded Allergies: Iodine and Iodide Containing Produc (Verified Allergy, Severe, throat swelling to IV contrast, 04/19/20) sulfamethoxazole (Verified Allergy, Severe, SWELLING,TROUBLE BREATHING, 05/27/20) trimethoprim (Verified Allergy, Severe, SWELLING,TROUBLE BREATHING, 05/27/20) Cephalexin Monohydrate (Verified Allergy, Intermediate, SWELLING,TROUBLE BREATHING, 04/16/20) NSAIDS (Non-Steroidal Anti-Inflamma (Verified Allergy, Intermediate, 03/18/20) TORADOL [place] Penicillins (Verified Allergy, Intermediate, SWELLING,TROUBLE BREATHING, 04/16/20) iodine (Verified Allergy, Intermediate, 03/18/20) lidocaine (Verified Allergy, Intermediate, 03/18/20) prochlorperazine edisylate (Verified Allergy, Intermediate, 03/18/20) prochlorperazine maleate (Verified Allergy, Intermediate, 03/18/20) Family History: Family History: Reviewed and the relevant findings Social History: Social History: Smoking Status: Former Smoker Alcohol Use: Occasionally Drug Use: None Current Medications: Current Medications Current Medications Ondansetron HCl (Zofran Odt) 4 mg 1X ONCE PO ; Start 11/11/20 at 15:00; Stop 11/11/20 at 15:01; Status DC Ziprasidone (Geodon Im) 20 mg STK-MED ONCE IM ; Start 11/11/20 at 15:10; Stop 11/11/20 at 15:10; Status DC Lorazepam (Ativan Inj) 2 mg 1X ONCE IM Last administered on 11/11/20at 15:30; Start 11/11/20 at 15:30; Stop 11/11/20 at 15:31; Status DC Ziprasidone (Geodon Im) 20 mg 1X ONCE IM Last administered on 11/11/20at 15:14; Start 11/11/20 at 15:14; Stop 11/11/20 at 15:32; Status DC Acetaminophen (Tylenol) 1,000 mg 1X ONCE PO Last administered on 11/11/20at 18:30; Start 11/11/20 at 18:30; Stop 11/11/20 at 18:31; Status DC Dicyclomine HCl (Bentyl) 10 mg 1X ONCE IM Last administered on 11/11/20at 19:49; Start 11/11/20 at 19:45; Stop 11/11/20 at 19:46; Status DC Dicyclomine HCl (Bentyl) 20 mg STK-MED ONCE IM ; Start 11/11/20 at 19:47; Stop 11/11/20 at 19:47; Status DC Lorazepam (Ativan) 1 mg 1X ONCE PO Last administered on 11/11/20at 19:59; Start 11/11/20 at 20:00; Stop 11/11/20 at 20:01; Status DC Ondansetron HCl (Zofran) 4 mg PRN Q8HRS PRN IV NAUSEA/VOMITING 1ST CHOICE; Start 11/11/20 at 21:15; Stop 11/12/20 at 21:14; Status Cancel Acetaminophen (Tylenol) 650 mg PRN Q4HRS PRN PO FEVER > 100.3'F Last administered on 11/12/20at 01:02; Start 11/11/20 at 21:15; Stop 11/12/20 at 21:14 Ziprasidone (Geodon Im) 20 mg STK-MED ONCE IM ; Start 11/11/20 at 22:09; Stop 11/11/20 at 22:10; Status DC Ondansetron HCl (Zofran Odt) 4 mg STK-MED ONCE .ROUTE ; Start 11/11/20 at 23:33; Stop 11/11/20 at 23:33; Status DC Ondansetron HCl (Zofran Odt) 4 mg PRN Q8HRS PRN PO NAUSEA/VOMITING 1ST CHOICE Last administered on 11/11/20at 23:54; Start 11/12/20 at 00:00 Ziprasidone (Geodon Im) 20 mg 1X ONCE IM Last administered on 11/12/20at 01:57; Start 11/12/20 at 00:30; Stop 11/12/20 at 00:31; Status DC Active Scripts Active Macrobid 100 Mg Capsule (Nitrofurantoin Monohyd/M-Cryst) 100 Mg Capsule 1 Cap PO BID 7 Days Miralax (Polyethylene Glycol 3350) 119 Gm Powder 17 Gm PO DAILY PRN dissolve in water Colace 2-in-1 Tablet (Sennosides/Docusate Sodium) 1 Each Tablet 1 Tab PO QHS 30 Days [place] 5-325 Tablet (Acetaminophen/Hydrocodone Bitart) 1 Each Tablet 0.5-1 Tab PO PRN Q6HRS PRN Ondansetron Odt (Ondansetron) 4 Mg Tab.rapdis 1 Tab PO PRN Q6-8HRS PRN Proair Hfa Inhaler (Albuterol Sulfate) 8.5 Gm Hfa.aer.ad 2 Puff IH PRN Q4-6HRS PRN 21 Days Zofran (Ondansetron Hcl) 4 Mg Tablet 1 Tab PO Q6HRS Proair Hfa (Albuterol Sulfate) 8.5 Gm Hfa.aer.ad 2.5 Mg NEB PRN Q4HRS PRN 30 Days Culturelle (Lactobacillus Rhamnosus Gg) 1 Each Cap.sprink 1 Cap PO BID 30 Days Dok (Docusate Sodium) 100 Mg Capsule 100 Mg PO PRN BID PRN 30 Days Reported Acetaminophen 500 Mg Tablet 2 Tab PO PRN Q6HRS PRN 15 Days Klor-Con 10 (Potassium Chloride) 10 Meq Tablet.er 1 Tab PO DAILY 30 Days Protonix (Pantoprazole Sodium) 40 Mg Tablet.dr 40 Mg PO BIDAC Keppra (Levetiracetam) 500 Mg Tablet 500 Mg PO BID Carafate (Sucralfate) 1 Gm Tablet 1 Tab PO QID 30 Days Lasix (Furosemide) 40 Mg Tablet 40 Mg PO BID Clonazepam 1 Mg Tablet 0.5 Mg PO PRN Q6HRS PRN Risperdal (Risperidone) 4 Mg Tablet 5 Mg PO BID Prozac (Fluoxetine Hcl) 40 Mg Capsule 1 Cap PO DAILY ROS: Review of Systems Review of System REVIEW OF SYSTEMS: GENERAL: Denies weakness SKIN: No bruising, hair changes or rashes. EYES: No blurred, double or loss of vision. NOSE AND THROAT: No history of nosebleeds, hoarseness or sore throat. HEART: No history of palpitations, chest pain or shortness of breath on exertion. LUNGS: Denies cough, hemoptysis, wheezing or shortness of breath. GASTROINTESTINAL: Denies changes in appetite, nausea, vomiting, diarrhea or constipation. GENITOURINARY: No history of frequency, urgency, hesitancy or nocturia. NEUROLOGIC: Denies history of numbness, tingling, or tremor. PSYCHIATRIC: No history of panic, anxiety or depression. ENDOCRINE: No history of heat or cold intolerance, polyuria or polydipsia. EXTREMITIES: Denies joint pain, pain on walking or stiffness. Physical Exam: Vital Signs: Vital Signs Date Time Temp Pulse Resp B/P (MAP) Pulse Ox O2 Delivery O2 Flow Rate FiO2 11/12/20 07:00 98.2 87 16 118/67 (84) Room Air 98.0 98.2 11/12/20 02:26 99 Physcial Exam: GEN: No apparent distress. Alert and oriented HEENT: Normal cephalic, atraumatic, external auditory canals are patent EYES: Extraocular muscles are intact, pupil are equally round and reactive to light and accommodation MUSCULOSKELETAL: Well developed , well nourished, good range of motion ENDOCRINE: No thyromegaly was palpated LYMPHATICS: No cervical chain or axillary nodes were noted HEMATOPOIETIC: No bruising NECK: Supple, no JVD, no thyromegaly was noted LUNGS: Clear to auscultation in all lung rivera without rhonchi or wheezing HEART: RRR, S!, S2 present. Peripheral pulses intact, no obvious murmurs noted ABDOMEN: Soft. Generalized tenderness. Tenderness and pain is out of proportion to my exam. No peritonitis EXTREMITIES: Without clubbing, cyanosis, or edema. Pedal pulses intact. Negative Homans sign NEUROLOGIC: Normal speech and tone. A&O x 3, moves all extremities, no o bvious focal deficits PSYCHIATRIC: Normal affect, normal mood. Stable SKIN: No ulcerations or rashes, good skin turgor, no jaundice VASCULAR: Good capillary refill, neurovascular bundle appears to be intact Labs: Labs: Laboratory Tests Test 11/11/20 13:20 11/11/20 17:45 Urine Collection Type Unknown Urine Color Yellow Urine Clarity Clear Urine pH 6.0 (<5.0-8.0) Urine Specific [place] >=1.030 (1.000-1.030) Urine Protein 30 mg/dL (NEG-TRACE) Urine Glucose (UA) 100 mg/dL (NEG) Urine Ketones (Stick) 15 mg/dL (NEG) Urine Blood Negative (NEG) Urine Nitrite Negative (NEG) Urine Bilirubin Negative (NEG) Urine Urobilinogen Dipstick 0.2 mg/dL (0.2 mg/dL) Urine Leukocyte Esterase Trace (NEG) Urine RBC 0 /HPF (0-2) Urine WBC 20-40 /HPF (0-4) Urine Squamous Epithelial Cells Mod /LPF Urine Transitional Epithelial Cells Mod /LPF Urine Bacteria 0 /HPF (0-FEW) Urine Cellular Casts Mod /HPF Urine Hyaline Casts Moderate /HPF Urine Mucus Marked /LPF Urine Opiates Screen Pos (NEG) Urine Methadone Screen Neg (NEG) Urine Barbiturates Neg (NEG) Urine Phencyclidine Screen Neg (NEG) Urine Amphetamine/Methamphetamine Neg (NEG) Urine Benzodiazepines Screen Neg (NEG) Urine Cocaine Screen Neg (NEG) Urine Cannabinoids Screen Neg (NEG) Urine Ethyl Alcohol Neg (NEG) White Blood Count 12.9 x10^3/uL (4.0-11.0) Red Blood Count 3.39 x10^6/uL (3.50-5.40) Hemoglobin 9.9 g/dL (12.0-15.5) Hematocrit 29.6 % (36.0-47.0) Mean Corpuscular Volume 87 fL (79-100) Mean Corpuscular Hemoglobin 29 pg (25-35) Mean Corpuscular Hemoglobin Concent 33 g/dL (31-37) Red Cell Distribution Width 15.8 % (11.5-14.5) Platelet Count 859 x10^3/uL (140-400) Neutrophils (%) (Auto) 73 % (31-73) Lymphocytes (%) (Auto) 18 % (24-48) Monocytes (%) (Auto) 7 % (0-9) Eosinophils (%) (Auto) 2 % (0-3) Basophils (%) (Auto) 1 % (0-3) Neutrophils # (Auto) 9.4 x10^3/uL (1.8-7.7) Lymphocytes # (Auto) 2.3 x10^3/uL (1.0-4.8) Monocytes # (Auto) 0.9 x10^3/uL (0.0-1.1) Eosinophils # (Auto) 0.3 x10^3/uL (0.0-0.7) Basophils # (Auto) 0.1 x10^3/uL (0.0-0.2) Sodium Level 136 mmol/L (136-145) Potassium Level 3.6 mmol/L (3.5-5.1) Chloride Level 100 mmol/L (98-107) Carbon Dioxide Level 20 mmol/L (21-32) Anion Gap 16 (6-14) Blood Urea Nitrogen 17 mg/dL (7-20) Creatinine 1.0 mg/dL (0.6-1.0) Estimated GFR (Cockcroft-Gault) 60.0 BUN/Creatinine Ratio 17 (6-20) Glucose Level 83 mg/dL (70-99) Calcium Level 9.5 mg/dL (8.5-10.1) Magnesium Level 2.1 mg/dL (1.8-2.4) Total Bilirubin 0.2 mg/dL (0.2-1.0) Aspartate Amino Transf (AST/SGOT) 11 U/L (15-37) Alanine Aminotransferase (ALT/SGPT) 18 U/L (14-59) Alkaline Phosphatase 125 U/L (46-116) Total Protein 7.5 g/dL (6.4-8.2) Albumin 2.7 g/dL (3.4-5.0) Albumin/Globulin Ratio 0.6 (1.0-1.7) Salicylates Level < 2.8 mg/dL (2.8-20.0) Salicylate Last Dose Date Unknown Salicylate Last Dose Time Unknown Acetaminophen Level < 2 mcg/ml (10-30) Acetaminophen Last Dose Date Unknown Acetaminophen Last Dose Time Unknown Ethyl Alcohol Level < 10 mg/dL (0-10) Laboratory Tests Test 11/11/20 13:20 11/11/20 17:45 Urine Collection Type Unknown Urine Color Yellow Urine Clarity Clear Urine pH 6.0 (<5.0-8.0) Urine Specific [place] >=1.030 (1.000-1.030) Urine Protein 30 mg/dL (NEG-TRACE) Urine Glucose (UA) 100 mg/dL (NEG) Urine Ketones (Stick) 15 mg/dL (NEG) Urine Blood Negative (NEG) Urine Nitrite Negative (NEG) Urine Bilirubin Negative (NEG) Urine Urobilinogen Dipstick 0.2 mg/dL (0.2 mg/dL) Urine Leukocyte Esterase Trace (NEG) Urine RBC 0 /HPF (0-2) Urine WBC 20-40 /HPF (0-4) Urine Squamous Epithelial Cells Mod /LPF Urine Transitional Epithelial Cells Mod /LPF Urine Bacteria 0 /HPF (0-FEW) Urine Cellular Casts Mod /HPF Urine Hyaline Casts Moderate /HPF Urine Mucus Marked /LPF Urine Opiates Screen Pos (NEG) Urine Methadone Screen Neg (NEG) Urine Barbiturates Neg (NEG) Urine Phencyclidine Screen Neg (NEG) Urine Amphetamine/Methamphetamine Neg (NEG) Urine Benzodiazepines Screen Neg (NEG) Urine Cocaine Screen Neg (NEG) Urine Cannabinoids Screen Neg (NEG) Urine Ethyl Alcohol Neg (NEG) White Blood Count 12.9 x10^3/uL (4.0-11.0) Red Blood Count 3.39 x10^6/uL (3.50-5.40) Hemoglobin 9.9 g/dL (12.0-15.5) Hematocrit 29.6 % (36.0-47.0) Mean Corpuscular Volume 87 fL (79-100) Mean Corpuscular Hemoglobin 29 pg (25-35) Mean Corpuscular Hemoglobin Concent 33 g/dL (31-37) Red Cell Distribution Width 15.8 % (11.5-14.5) Platelet Count 859 x10^3/uL (140-400) Neutrophils (%) (Auto) 73 % (31-73) Lymphocytes (%) (Auto) 18 % (24-48) Monocytes (%) (Auto) 7 % (0-9) Eosinophils (%) (Auto) 2 % (0-3) Basophils (%) (Auto) 1 % (0-3) Neutrophils # (Auto) 9.4 x10^3/uL (1.8-7.7) Lymphocytes # (Auto) 2.3 x10^3/uL (1.0-4.8) Monocytes # (Auto) 0.9 x10^3/uL (0.0-1.1) Eosinophils # (Auto) 0.3 x10^3/uL (0.0-0.7) Basophils # (Auto) 0.1 x10^3/uL (0.0-0.2) Sodium Level 136 mmol/L (136-145) Potassium Level 3.6 mmol/L (3.5-5.1) Chloride Level 100 mmol/L (98-107) Carbon Dioxide Level 20 mmol/L (21-32) Anion Gap 16 (6-14) Blood Urea Nitrogen 17 mg/dL (7-20) Creatinine 1.0 mg/dL (0.6-1.0) Estimated GFR (Cockcroft-Gault) 60.0 BUN/Creatinine Ratio 17 (6-20) Glucose Level 83 mg/dL (70-99) Calcium Level 9.5 mg/dL (8.5-10.1) Magnesium Level 2.1 mg/dL (1.8-2.4) Total Bilirubin 0.2 mg/dL (0.2-1.0) Aspartate Amino Transf (AST/SGOT) 11 U/L (15-37) Alanine Aminotransferase (ALT/SGPT) 18 U/L (14-59) Alkaline Phosphatase 125 U/L (46-116) Total Protein 7.5 g/dL (6.4-8.2) Albumin 2.7 g/dL (3.4-5.0) Albumin/Globulin Ratio 0.6 (1.0-1.7) Salicylates Level < 2.8 mg/dL (2.8-20.0) Salicylate Last Dose Date Unknown Salicylate Last Dose Time Unknown Acetaminophen Level < 2 mcg/ml (10-30) Acetaminophen Last Dose Date Unknown Acetaminophen Last Dose Time Unknown Ethyl Alcohol Level < 10 mg/dL (0-10) Images: Images ACUTE ABD SERIES IMPRESSION: 1. No acute pulmonary finding. 2. Nonobstructive bowel gas pattern. Assessment/Plan Assessment/Plan Suicidal ideation Acute abdominal pain, concerning for mesenteric ischemia due to pain out of proportion on my physical exam Admit to medicine for further management One-to-one close observation Psychiatry consult Consider surgery consult after CTA of the abdomen pelvis if there are any positive findings IV and p.o. pain control Lovenox for DVT prophylaxis Protonix GI prophylaxis ADA diet Full code Discussed with RN and SW Disposition inpatient management as above Surrogate decision maker is the Melba Mcqueen Justifications for Admission Other Justification N/V DEVANG ANGELES MD Nov 12, 2020 08:28
[2020-11-12] MEDS ORDERED: DEXTROSE 50% 25 GM / 50ML DISP.SYRIN. IV PRN (08:30)
[2020-11-12] MEDS ORDERED: ONDANSETRON PF 4 MG/2 ML VIAL. IVP PRN (08:30)
[2020-11-12] MEDS ORDERED: SENNOSIDES 8.6 MG TABLET PO PRN (08:30)
[2020-11-12] MEDS ORDERED: DOCUSATE SODIUM 100 MG CAPSULE. PO PRN ×2 (08:30→10:30)
[2020-11-12 09:07] VITALS: BP 120/56
[2020-11-12] MEDS ORDERED: IOHEXOL 350 MG/ML 100 ML VIAL. IV ONE (09:30)
[2020-11-12 10:02] VITALS: BP 124/67
[2020-11-12] MEDS ORDERED: HALOPERIDOL LACTATE 5 MG/ML VIAL. SQ ONE (10:15)
[2020-11-12] MEDS ORDERED: DEXAMETHASONE SOD PHOS 20 MG/5 ML VIAL. IV ONE (10:30)
[2020-11-12] MEDS ORDERED: HYDROcodone/APAP 5/325MG 1 TAB TABLET PO PRN (10:30)
[2020-11-12] MEDS ORDERED: diphenhydrAMINE 50 MG/ML VIAL IVP ONE (10:45)
[2020-11-12] MEDS ORDERED: levETIRAcetam 1,000 MG in IV DEXTROSE 5% 100ML 100 ML IV ONE (10:45)
[2020-11-12 12:14] LABS: BASO # 0.1 x10^3/uL (0.0-0.2); BASO % 0 % (0-3); EOS # 0.8 x10^3/uL (0.0-0.7); EOS % 4 % (0-3); HEMATOCRIT 28.7 % (36.0-47.0); HEMOGLOBIN 9.4 g/dL (12.0-15.5); LYMPH # 3.4 x10^3/uL (1.0-4.8); LYMPH % 19 % (24-48); MEAN CORPUSCULAR HEMOGLOBIN 29 pg (25-35); MEAN CORPUSCULAR HGB CONC 33 g/dL (31-37); MEAN CORPUSCULAR VOLUME 88 fL (79-100); MONO # 1.3 x10^3/uL (0.0-1.1); MONO % 7 % (0-9); NEUT # 12.7 x10^3/uL (1.8-7.7); NEUT % 70 % (31-73); PLATELET COUNT 841 x10^3/uL (140-400); RED BLOOD COUNT 3.26 x10^6/uL (3.50-5.40); RED CELL DISTRIBUTION WIDTH 15.8 % (11.5-14.5); WHITE BLOOD COUNT 18.2 x10^3/uL (4.0-11.0)
[2020-11-12 12:28] LABS: ALBUMIN 2.7 g/dL (3.4-5.0); ALBUMIN/GLOBULIN RATIO 0.6 (1.0-1.7); CALCIUM 9.3 mg/dL (8.5-10.1); CREATININE 0.9 mg/dL (0.6-1.0); GFR 67.7; POTASSIUM 3.4 mmol/L (3.5-5.1); TOTAL BILIRUBIN 0.1 mg/dL (0.2-1.0); TOTAL PROTEIN 7.4 g/dL (6.4-8.2)
[2020-11-12 14:01] VITALS: BP 100/55
[2020-11-12] MEDS: clonazePAM 0.5 MG TABLET PO PRN (14:06)
[2020-11-12] MEDS: levETIRAcetam 500 MG TABLET PO SCH ×2 (14:06→21:17)
[2020-11-12] MEDS ORDERED: HALOPERIDOL LACTATE 5 MG/ML VIAL. SQ PRN ×2 (15:00→15:30)
[2020-11-12] MEDS: FUROSEMIDE 40 MG TABLET. PO SCH (15:06)
[2020-11-12] MEDS: HYDROcodone/APAP 5/325MG 1 TAB TABLET PO PRN ×2 (15:06→20:59)
[2020-11-12] MEDS ORDERED: oxyCODONE IR 5 MG TABLET PO PRN (18:00)
[2020-11-12] MEDS ORDERED: oxyCODONE IR 5 MG TABLET ONE (18:01)
[2020-11-12 18:10] VITALS: BP 118/56
[2020-11-12] MEDS ORDERED: ZOLPIDEM 5 MG TABLET. PO PRN (21:30)
[2020-11-13 06:27] VITALS: BP 105/65
[2020-11-13] MEDS: HYDROcodone/APAP 5/325MG 1 TAB TABLET PO PRN (06:31)
--- NOTE | 2020-11-13 07:22 | PDOC ---
[employer] PROGRESS NOTE Date of Service DOS: DATE: 11/13/20 TIME: 07:16 Chief Complaint Chief Complaint A/P: Nausea and vomiting - IV antiemetics, she is asking for PO already Abdominal pain - October 30, 2020, patient had partial distal gastrectomy with bilroth 2 reconstruction, removal of mesh. prior to that with perforated gastric ulcer status post repair of perforated ulcer with gopal patch now with recurrent pain. H/o drug seeking behavior documented, will minimize IV pain medications, change to hydrocodone Leukocytosis - mild, resolved Diffuse peritonitis - improved from prior Transaminitis. History of lupus. Normocytic Anemia Multiple abx allergies: PCN/Keflex/Bactrim - swelling and trouble breathing Bilateral nephrolithiasis, nonobstructive Schizophrenia/bipolar disorder - restart meds Anxiety/depression History of Lupus History of CHF history of COPD Prior Smoker History of Present Illness History of Present Illness Ms Goncalves is a 44yo F w/ PMHx COPD, DVT s/p IVC filter, hypercholesterolemia, hypertension, kidney stones, myocardial infarction, peptic ulcer disease (perforated s/p gopal patch), seizures, anxiety/depression, BP disorder, questionable history of lupus and morbid obesity who comes to the ED on 11/11/2020 c/o intractable abdominal pain and suicidal ideation. Patient has been evaluated multiple times for the same problem. Patient was admitted here on October 23, 2020 due to intractable abdominal pain. On October 30, 2020, patient had partial distal gastrectomy with bilroth 2 reconstruction, removal of mesh. Patient was discharged home on November 08, 2020. Patient came back to ER the next day due to abdominal pain with nausea vomiting. CT scan of her abdomen and pelvic did not show any acute problem on 11/09/2020. She returned to the ED again 11/11/2020. Patient denies any fever. Patient denies any chest pain, no trouble breathing, no cough, no fever. She attempted to leave against medical advice, noting she was going to go home and kill herself due to the pain and became combative with staff, was admitted for psychiatric assessment. This morning complaining of pain. Notes she has had multiple bowel movements all formed no watery. Surgical incision site looks clean dry intact. Patient notes she is no longer suicidal she just wants to get back on her Latuda and Risperdal and Keppra. She also wants something for pain. I have advised her that she should have repeat surgical evaluation and she is return to the ER twice since surgery complaining of abdominal pain. Afebrile vital signs other symptoms otherwise stable. Hb 8.4 WBC down to 10.6. She does have follow-up with [facility] for psychiatric med check 12/01/2020 and psychology follow-up 11/22/2020. After further discussion with her she decided to leave AGAINST MEDICAL ADVICE. Vitals/I&O Vitals/I&O: Vital Signs Date Time Temp Pulse Resp B/P (MAP) Pulse Ox O2 Delivery O2 Flow Rate FiO2 11/13/20 06:31 95 11/13/20 06:27 98.7 95 105/65 (78) Room Air 98.7 11/13/20 00:16 20 11/12/20 10:02 95.0 I & O 11/12/20 11/12/20 11/13/20 15:00 23:00 07:00 Intake Total 120 ml 360 ml Balance 120 ml 360 ml Physical Exam Lungs: Clear Labs Labs: Laboratory Tests Test 11/12/20 11:55 11/12/20 12:05 White Blood Count 18.2 x10^3/uL (4.0-11.0) Red Blood Count 3.26 x10^6/uL (3.50-5.40) Hemoglobin 9.4 g/dL (12.0-15.5) Hematocrit 28.7 % (36.0-47.0) Mean Corpuscular Volume 88 fL (79-100) Mean Corpuscular Hemoglobin 29 pg (25-35) Mean Corpuscular Hemoglobin Concent 33 g/dL (31-37) Red Cell Distribution Width 15.8 % (11.5-14.5) Platelet Count 841 x10^3/uL (140-400) Neutrophils (%) (Auto) 70 % (31-73) Lymphocytes (%) (Auto) 19 % (24-48) Monocytes (%) (Auto) 7 % (0-9) Eosinophils (%) (Auto) 4 % (0-3) Basophils (%) (Auto) 0 % (0-3) Neutrophils # (Auto) 12.7 x10^3/uL (1.8-7.7) Lymphocytes # (Auto) 3.4 x10^3/uL (1.0-4.8) Monocytes # (Auto) 1.3 x10^3/uL (0.0-1.1) Eosinophils # (Auto) 0.8 x10^3/uL (0.0-0.7) Basophils # (Auto) 0.1 x10^3/uL (0.0-0.2) Sodium Level 138 mmol/L (136-145) Potassium Level 3.4 mmol/L (3.5-5.1) Chloride Level 102 mmol/L (98-107) Carbon Dioxide Level 21 mmol/L (21-32) Anion Gap 15 (6-14) Blood Urea Nitrogen 12 mg/dL (7-20) Creatinine 0.9 mg/dL (0.6-1.0) Estimated GFR (Cockcroft-Gault) 67.7 BUN/Creatinine Ratio 13 (6-20) Glucose Level 105 mg/dL (70-99) Calcium Level 9.3 mg/dL (8.5-10.1) Total Bilirubin 0.1 mg/dL (0.2-1.0) Aspartate Amino Transf (AST/SGOT) 7 U/L (15-37) Alanine Aminotransferase (ALT/SGPT) 16 U/L (14-59) Alkaline Phosphatase 124 U/L (46-116) Total Protein 7.4 g/dL (6.4-8.2) Albumin 2.7 g/dL (3.4-5.0) Albumin/Globulin Ratio 0.6 (1.0-1.7) Lactic Acid Level 2.1 mmol/L (0.4-2.0) Assessment and Plan Assessmemt and Plan Problems Medical Problems: (1) Abdominal pain Status: Acute (2) Narcotic dependence Status: Acute (3) Suicidal ideation Status: Acute Comment Review of Relevant I have reviewed the following items sasha (where applicable) has been applied. Medications: Current Medications Medications (Trade) Dose Ordered Sig/Tex Route PRN Reason Start Time Stop Time Status Last Admin Dose Admin Diphenhydramine HCl (Benadryl) 50 mg 1X ONCE IVP 11/12/20 10:45 11/12/20 10:46 DC 11/12/20 12:21 Levetiracetam (Keppra) 500 mg BID PO 11/12/20 14:00 11/12/20 21:17 Clonazepam (KlonoPIN) 0.5 mg PRN Q6HRS PRN PO ANXIETY / AGITATION 11/12/20 11:30 11/12/20 14:06 Acetaminophen/ Hydrocodone Bitart (Lortab 5/325) 1 tab PRN Q6HRS PRN PO MODERATE PAIN 11/12/20 11:30 11/13/20 06:31 Haloperidol Lactate (Haldol Inj) 5 mg PRN Q6HRS PRN SQ ANXIETY 11/12/20 15:30 11/12/20 21:18 Lorazepam (Ativan) 2 mg PRN Q6HRS PRN PO ANXIETY / AGITATION 11/12/20 15:30 11/13/20 01:12 Oxycodone HCl (Roxicodone) 5 mg PRN Q6HRS PRN PO PAIN 11/12/20 18:00 11/12/20 18:05 Zolpidem Tartrate (Ambien) 5 mg PRN QHS PRN PO INSOMNIA 11/12/20 21:30 11/12/20 23:55 Justifications for Admission Other Justification N/V and suicidal ideation JONEL GOVEA MD Nov 13, 2020 07:22
[2020-11-13] MEDS: FUROSEMIDE 40 MG TABLET. PO SCH (07:40)
[2020-11-13] MEDS: levETIRAcetam 500 MG TABLET PO SCH (07:40)
[2020-11-13] MEDS: clonazePAM 0.5 MG TABLET PO PRN (07:40)
[2020-11-13 08:19] LABS: BASO # 0.1 x10^3/uL (0.0-0.2); BASO % 1 % (0-3); EOS # 0.5 x10^3/uL (0.0-0.7); EOS % 4 % (0-3); HEMATOCRIT 25.4 % (36.0-47.0); HEMOGLOBIN 8.4 g/dL (12.0-15.5); LYMPH % 28 % (24-48); MEAN CORPUSCULAR HEMOGLOBIN 29 pg (25-35); MEAN CORPUSCULAR HGB CONC 33 g/dL (31-37); MEAN CORPUSCULAR VOLUME 88 fL (79-100); MONO % 9 % (0-9); NEUT # 6.1 x10^3/uL (1.8-7.7); NEUT % 58 % (31-73); PLATELET COUNT 785 x10^3/uL (140-400); RED BLOOD COUNT 2.89 x10^6/uL (3.50-5.40); RED CELL DISTRIBUTION WIDTH 15.9 % (11.5-14.5); WHITE BLOOD COUNT 10.6 x10^3/uL (4.0-11.0)
[2020-11-13 08:35] LABS: CALCIUM 8.3 mg/dL (8.5-10.1); CREATININE 0.8 mg/dL (0.6-1.0); GFR 77.6; MAGNESIUM 1.9 mg/dL (1.8-2.4); PHOSPHORUS 3.4 mg/dL (2.6-4.7); POTASSIUM 3.5 mmol/L (3.5-5.1)
[2020-11-13] MEDS ORDERED: POTASSIUM CHLORIDE 10 MEQ TABLET.ER. PO SCH (09:00)
[2020-11-13] MEDS ORDERED: hydrOXYzine 25 MG TABLET PO PRN (09:15)
[2020-11-13] MEDS: POTASSIUM BICARB 20 MEQ EFFERVESCENT TABLET. PO ONE ×2 (09:15→10:01)
--- NOTE | 2020-11-13 10:13 | NUR ---
Patient is refusing IV, CT scan, surgical consult, and refusing to take potassium pill. Patient states she just wants to go home after prescriptions have been sent to pharmacy. Patient states she does not want to take any more medication here. Dr. donnelly. Will continue to monitor.
--- NOTE | 2020-11-13 10:28 | NUR ---
unable to obtain IV access, patient refusing to have image guided IV placement Addendum: 11/13/20 at 1032 by ANASTACIO MILLER RN RN Amended: Links added.
[2020-11-13] MEDS ORDERED: LURASIDONE 40 MG TABLET. PO SCH (10:30)
[2020-11-13] MEDS ORDERED: LURA40TA PO (10:42)
[2020-11-13] MEDS ORDERED: HYDR-3164 PO (10:42)
[2020-11-13] MEDS ORDERED: PANT40TA77 PO (10:42)
[2020-11-13] MEDS ORDERED: HYDR25CA PO (10:42)
[2020-11-13] MEDS ORDERED: LEVE500T56 PO (10:42)
--- NOTE | 2020-11-13 10:52 | PDOC3 ---
Discharge Summary Visit Information Date of Admission: Nov 11, 2020 Date of Discharge: Nov 13, 2020 Admitting Diagnosis: Intractable abdominal pain Final Diagnosis Problems Medical Problems: (1) Abdominal pain Status: Acute (2) Narcotic dependence Status: Acute (3) Suicidal ideation Status: Acute Brief Hospital Course Allergies Allergies Coded Allergies Type Severity Reaction Last Updated Verified Iodine and Iodide Containing Produc Allergy Severe throat swelling to IV contrast 04/19/20 Yes sulfamethoxazole Allergy Severe SWELLING,TROUBLE BREATHING 05/27/20 Yes trimethoprim Allergy Severe SWELLING,TROUBLE BREATHING 05/27/20 Yes Cephalexin Monohydrate Allergy Intermediate SWELLING,TROUBLE BREATHING 04/16/20 Yes NSAIDS (Non-Steroidal Anti-Inflamma Allergy Intermediate 03/18/20 Yes Penicillins Allergy Intermediate SWELLING,TROUBLE BREATHING 04/16/20 Yes iodine Allergy Intermediate 03/18/20 Yes lidocaine Allergy Intermediate 03/18/20 Yes prochlorperazine edisylate Allergy Intermediate 03/18/20 Yes prochlorperazine maleate Allergy Intermediate 03/18/20 Yes Vital Signs Vital Signs Date Time Temp Pulse Resp B/P (MAP) Pulse Ox O2 Delivery O2 Flow Rate FiO2 11/13/20 10:01 Room Air 11/13/20 06:31 95 11/13/20 06:27 98.7 95 105/65 (78) 98.7 11/13/20 00:16 20 11/12/20 10:02 95.0 Lab Results Laboratory Tests Test 11/11/20 13:20 11/11/20 17:45 11/12/20 11:55 11/12/20 12:05 Urine Collection Type Unknown Urine Color Yellow Urine Clarity Clear Urine pH 6.0 (<5.0-8.0) Urine Specific [place] >=1.030 (1.000-1.030) Urine Protein 30 mg/dL (NEG-TRACE) Urine Glucose (UA) 100 mg/dL (NEG) Urine Ketones (Stick) 15 mg/dL (NEG) Urine Blood Negative (NEG) Urine Nitrite Negative (NEG) Urine Bilirubin Negative (NEG) Urine Urobilinogen Dipstick 0.2 mg/dL (0.2 mg/dL) Urine Leukocyte Esterase Trace (NEG) Urine RBC 0 /HPF (0-2) Urine WBC 20-40 /HPF (0-4) Urine Squamous Epithelial Cells Mod /LPF Urine Transitional Epithelial Cells Mod /LPF Urine Bacteria 0 /HPF (0-FEW) Urine Cellular Casts Mod /HPF Urine Hyaline Casts Moderate /HPF Urine Mucus Marked /LPF Urine Opiates Screen Pos (NEG) Urine Methadone Screen Neg (NEG) Urine Barbiturates Neg (NEG) Urine Phencyclidine Screen Neg (NEG) Urine Amphetamine/Methamphetamine Neg (NEG) Urine Benzodiazepines Screen Neg (NEG) Urine Cocaine Screen Neg (NEG) Urine Cannabinoids Screen Neg (NEG) Urine Ethyl Alcohol Neg (NEG) White Blood Count 12.9 x10^3/uL (4.0-11.0) 18.2 x10^3/uL (4.0-11.0) Red Blood Count 3.39 x10^6/uL (3.50-5.40) 3.26 x10^6/uL (3.50-5.40) Hemoglobin 9.9 g/dL (12.0-15.5) 9.4 g/dL (12.0-15.5) Hematocrit 29.6 % (36.0-47.0) 28.7 % (36.0-47.0) Mean Corpuscular Volume 87 fL (79-100) 88 fL (79-100) Mean Corpuscular Hemoglobin 29 pg (25-35) 29 pg (25-35) Mean Corpuscular Hemoglobin Concent 33 g/dL (31-37) 33 g/dL (31-37) Red Cell Distribution Width 15.8 % (11.5-14.5) 15.8 % (11.5-14.5) Platelet Count 859 x10^3/uL (140-400) 841 x10^3/uL (140-400) Neutrophils (%) (Auto) 73 % (31-73) 70 % (31-73) Lymphocytes (%) (Auto) 18 % (24-48) 19 % (24-48) Monocytes (%) (Auto) 7 % (0-9) 7 % (0-9) Eosinophils (%) (Auto) 2 % (0-3) 4 % (0-3) Basophils (%) (Auto) 1 % (0-3) 0 % (0-3) Neutrophils # (Auto) 9.4 x10^3/uL (1.8-7.7) 12.7 x10^3/uL (1.8-7.7) Lymphocytes # (Auto) 2.3 x10^3/uL (1.0-4.8) 3.4 x10^3/uL (1.0-4.8) Monocytes # (Auto) 0.9 x10^3/uL (0.0-1.1) 1.3 x10^3/uL (0.0-1.1) Eosinophils # (Auto) 0.3 x10^3/uL (0.0-0.7) 0.8 x10^3/uL (0.0-0.7) Basophils # (Auto) 0.1 x10^3/uL (0.0-0.2) 0.1 x10^3/uL (0.0-0.2) Sodium Level 136 mmol/L (136-145) 138 mmol/L (136-145) Potassium Level 3.6 mmol/L (3.5-5.1) 3.4 mmol/L (3.5-5.1) Chloride Level 100 mmol/L (98-107) 102 mmol/L (98-107) Carbon Dioxide Level 20 mmol/L (21-32) 21 mmol/L (21-32) Anion Gap 16 (6-14) 15 (6-14) Blood Urea Nitrogen 17 mg/dL (7-20) 12 mg/dL (7-20) Creatinine 1.0 mg/dL (0.6-1.0) 0.9 mg/dL (0.6-1.0) Estimated GFR (Cockcroft-Gault) 60.0 67.7 BUN/Creatinine Ratio 17 (6-20) 13 (6-20) Glucose Level 83 mg/dL (70-99) 105 mg/dL (70-99) Calcium Level 9.5 mg/dL (8.5-10.1) 9.3 mg/dL (8.5-10.1) Magnesium Level 2.1 mg/dL (1.8-2.4) Total Bilirubin 0.2 mg/dL (0.2-1.0) 0.1 mg/dL (0.2-1.0) Aspartate Amino Transf (AST/SGOT) 11 U/L (15-37) 7 U/L (15-37) Alanine Aminotransferase (ALT/SGPT) 18 U/L (14-59) 16 U/L (14-59) Alkaline Phosphatase 125 U/L (46-116) 124 U/L (46-116) Total Protein 7.5 g/dL (6.4-8.2) 7.4 g/dL (6.4-8.2) Albumin 2.7 g/dL (3.4-5.0) 2.7 g/dL (3.4-5.0) Albumin/Globulin Ratio 0.6 (1.0-1.7) 0.6 (1.0-1.7) Salicylates Level < 2.8 mg/dL (2.8-20.0) Salicylate Last Dose Date Unknown Salicylate Last Dose Time Unknown Acetaminophen Level < 2 mcg/ml (10-30) Acetaminophen Last Dose Date Unknown Acetaminophen Last Dose Time Unknown Ethyl Alcohol Level < 10 mg/dL (0-10) Coronavirus (PCR) Not detected (Not Detected) Lactic Acid Level 2.1 mmol/L (0.4-2.0) Test 11/13/20 08:05 White Blood Count 10.6 x10^3/uL (4.0-11.0) Red Blood Count 2.89 x10^6/uL (3.50-5.40) Hemoglobin 8.4 g/dL (12.0-15.5) Hematocrit 25.4 % (36.0-47.0) Mean Corpuscular Volume 88 fL (79-100) Mean Corpuscular Hemoglobin 29 pg (25-35) Mean Corpuscular Hemoglobin Concent 33 g/dL (31-37) Red Cell Distribution Width 15.9 % (11.5-14.5) Platelet Count 785 x10^3/uL (140-400) Neutrophils (%) (Auto) 58 % (31-73) Lymphocytes (%) (Auto) 28 % (24-48) Monocytes (%) (Auto) 9 % (0-9) Eosinophils (%) (Auto) 4 % (0-3) Basophils (%) (Auto) 1 % (0-3) Neutrophils # (Auto) 6.1 x10^3/uL (1.8-7.7) Lymphocytes # (Auto) 3.0 x10^3/uL (1.0-4.8) Monocytes # (Auto) 1.0 x10^3/uL (0.0-1.1) Eosinophils # (Auto) 0.5 x10^3/uL (0.0-0.7) Basophils # (Auto) 0.1 x10^3/uL (0.0-0.2) Sodium Level 140 mmol/L (136-145) Potassium Level 3.5 mmol/L (3.5-5.1) Chloride Level 105 mmol/L (98-107) Carbon Dioxide Level 22 mmol/L (21-32) Anion Gap 13 (6-14) Blood Urea Nitrogen 10 mg/dL (7-20) Creatinine 0.8 mg/dL (0.6-1.0) Estimated GFR (Cockcroft-Gault) 77.6 Glucose Level 119 mg/dL (70-99) Calcium Level 8.3 mg/dL (8.5-10.1) Phosphorus Level 3.4 mg/dL (2.6-4.7) Magnesium Level 1.9 mg/dL (1.8-2.4) Laboratory Tests Test 11/12/20 11:55 11/12/20 12:05 11/13/20 08:05 White Blood Count 18.2 x10^3/uL (4.0-11.0) 10.6 x10^3/uL (4.0-11.0) Red Blood Count 3.26 x10^6/uL (3.50-5.40) 2.89 x10^6/uL (3.50-5.40) Hemoglobin 9.4 g/dL (12.0-15.5) 8.4 g/dL (12.0-15.5) Hematocrit 28.7 % (36.0-47.0) 25.4 % (36.0-47.0) Mean Corpuscular Volume 88 fL (79-100) 88 fL (79-100) Mean Corpuscular Hemoglobin 29 pg (25-35) 29 pg (25-35) Mean Corpuscular Hemoglobin Concent 33 g/dL (31-37) 33 g/dL (31-37) Red Cell Distribution Width 15.8 % (11.5-14.5) 15.9 % (11.5-14.5) Platelet Count 841 x10^3/uL (140-400) 785 x10^3/uL (140-400) Neutrophils (%) (Auto) 70 % (31-73) 58 % (31-73) Lymphocytes (%) (Auto) 19 % (24-48) 28 % (24-48) Monocytes (%) (Auto) 7 % (0-9) 9 % (0-9) Eosinophils (%) (Auto) 4 % (0-3) 4 % (0-3) Basophils (%) (Auto) 0 % (0-3) 1 % (0-3) Neutrophils # (Auto) 12.7 x10^3/uL (1.8-7.7) 6.1 x10^3/uL (1.8-7.7) Lymphocytes # (Auto) 3.4 x10^3/uL (1.0-4.8) 3.0 x10^3/uL (1.0-4.8) Monocytes # (Auto) 1.3 x10^3/uL (0.0-1.1) 1.0 x10^3/uL (0.0-1.1) Eosinophils # (Auto) 0.8 x10^3/uL (0.0-0.7) 0.5 x10^3/uL (0.0-0.7) Basophils # (Auto) 0.1 x10^3/uL (0.0-0.2) 0.1 x10^3/uL (0.0-0.2) Sodium Level 138 mmol/L (136-145) 140 mmol/L (136-145) Potassium Level 3.4 mmol/L (3.5-5.1) 3.5 mmol/L (3.5-5.1) Chloride Level 102 mmol/L (98-107) 105 mmol/L (98-107) Carbon Dioxide Level 21 mmol/L (21-32) 22 mmol/L (21-32) Anion Gap 15 (6-14) 13 (6-14) Blood Urea Nitrogen 12 mg/dL (7-20) 10 mg/dL (7-20) Creatinine 0.9 mg/dL (0.6-1.0) 0.8 mg/dL (0.6-1.0) Estimated GFR (Cockcroft-Gault) 67.7 77.6 BUN/Creatinine Ratio 13 (6-20) Glucose Level 105 mg/dL (70-99) 119 mg/dL (70-99) Calcium Level 9.3 mg/dL (8.5-10.1) 8.3 mg/dL (8.5-10.1) Total Bilirubin 0.1 mg/dL (0.2-1.0) Aspartate Amino Transf (AST/SGOT) 7 U/L (15-37) Alanine Aminotransferase (ALT/SGPT) 16 U/L (14-59) Alkaline Phosphatase 124 U/L (46-116) Total Protein 7.4 g/dL (6.4-8.2) Albumin 2.7 g/dL (3.4-5.0) Albumin/Globulin Ratio 0.6 (1.0-1.7) Lactic Acid Level 2.1 mmol/L (0.4-2.0) Phosphorus Level 3.4 mg/dL (2.6-4.7) Magnesium Level 1.9 mg/dL (1.8-2.4) Brief Hospital Course Ms Goncalves is a 44yo F w/ PMHx COPD, DVT s/p IVC filter, hypercholesterolemia, hypertension, kidney stones, myocardial infarction, peptic ulcer disease (pe rforated s/p gopal patch), seizures, anxiety/depression, BP disorder, questionable history of lupus and morbid obesity who comes to the ED on 11/11/2020 c/o intractable abdominal pain and suicidal ideation. Patient has been evaluated multiple times for the same problem. Patient was admitted here on October 23, 2020 due to intractable abdominal pain. On October 30, 2020, patient had partial distal gastrectomy with bilroth 2 reconstruction, removal of mesh. Patient was discharged home on November 08, 2020. Patient came back to ER the next day due to abdominal pain with nausea vomiting. CT scan of her abdomen and pelvic did not show any acute problem on 11/09/2020. She returned to the ED again 11/11/2020. Patient denies any fever. Patient denies any chest pain, no trouble breathing, no cough, no fever. She attempted to leave against medical advice, noting she was going to go home and kill herself due to the pain and became combative with staff, was admitted for psychiatric assessment. This morning complaining of pain. Notes she has had multiple bowel movements all formed no watery. Surgical incision site looks clean dry intact. Patient notes she is no longer suicidal she just wants to get back on her Latuda and Risperdal and Keppra. She also wants something for pain. I have advised her that she should have repeat surgical evaluation and she is return to the ER twice since surgery complaining of abdominal pain. Afebrile vital signs other symptoms otherwise stable. Hb 8.4 WBC down to 10.6. She does have follow-up with [facility] for psychiatric med check 12/01/2020 and psychology follow-up 11/22/2020. After further discussion with her she decided to leave AGAINST MEDICAL ADVICE. Problem list: Nausea and vomiting - IV antiemetics, she is asking for PO already Abdominal pain - October 30, 2020, patient had partial distal gastrectomy with bilroth 2 reconstruction, removal of mesh. prior to that with perforated gastric ulcer status post repair of perforated ulcer with gopal patch now with recurrent pain. H/o drug seeking behavior documented, will minimize IV pain medications, change to hydrocodone Leukocytosis - mild, resolved Diffuse peritonitis - improved from prior Transaminitis. History of lupus. Normocytic Anemia Multiple abx allergies: PCN/Keflex/Bactrim - swelling and trouble breathing Bilateral nephrolithiasis, nonobstructive Schizophrenia/bipolar disorder - restart meds Anxiety/depression History of Lupus History of CHF history of COPD Prior Smoker Greater than 30 minutes spent on d/c Discharge Information Condition at Discharge: Improved Follow Up: Weeks (1) Disposition/Orders: D/C to Home Scheduled Fluoxetine Hcl (Prozac) 40 Mg Capsule, 1 CAP PO DAILY, #30 Ref 3 (Reported) Entered as Reported by: LAXMI CHING on 06/29/17 1607 Furosemide (Lasix) 40 Mg Tablet, 40 MG PO BID for chf, (Reported) Entered as Reported by: JANUARY RAVI on 03/15/20 0639 Last Action: Continued on 11/12/20 1041 by SOFIE LEWIS Lactobacillus Rhamnosus Gg (Culturelle) 1 Each Cap.sprink, 1 CAP PO BID for SUPPLEMENT for 30 Days, #60 Prescribed by: BETZY BORDEN MD on 03/31/20 1232 Levetiracetam (Keppra) 500 Mg Tablet, 500 MG PO BID for Seizures for 30 Days, #60 Ref 2 Prescribed by: JONEL GOVEA MD on 11/13/20 1042 Lurasidone Hcl (Latuda) 40 Mg Tablet, 40 MG PO DAILYWBKFT for Bipolar disorder for 30 Days, #30 Ref 0 Prescribed by: JONEL GOVEA MD on 11/13/20 1042 Ondansetron Hcl (Zofran) 4 Mg Tablet, 1 TAB PO Q6HRS for nausea, #20 Prescribed by: ANASTASIA FITZPATRICK MD on 05/31/20 1213 Pantoprazole Sodium (Protonix ) 40 Mg Tablet.dr, 40 MG PO BIDAC for GERD for 30 Days, #60 Prescribed by: JONEL GOVEA MD on 11/13/20 1042 Potassium Chloride (Klor-Con 10) 10 Meq Tablet.er, 1 TAB PO DAILY for supplement (takes lasix) for 30 Days, #30 Ref 0 (Reported) Entered as Reported by: BEST BRADLEY on 10/23/202156 Last Action: Continued on 11/12/20 1041 by SOFIE LEWIS Risperidone (Risperdal) 4 Mg Tablet, 5 MG PO BID, (Reported) Entered as Reported by: LAXMI CHING on 06/29/17 1607 Last Action: Reviewed on 11/12/20 1009 by SOFIE LEWIS Sennosides/Docusate Sodium (Colace 2-in-1 Tablet) 1 Each Tablet, 1 TAB PO QHS for 30 Days, #30 Ref 0 Prescribed by: GREGORIA SLAUGHTER D.O. on 11/10/20 0105 Last Action: Reviewed on 11/12/20 1009 by SOFIE LEWIS Sucralfate (Carafate) 1 Gm Tablet, 1 TAB PO QID for ulcers for 30 Days, #120 Ref 0 (Reported) Entered as Reported by: JANUARY RAVI on 03/15/20 0700 Scheduled PRN Albuterol Sulfate (Proair Hfa) 8.5 Gm Hfa.aer.ad, 2.5 MG NEB PRN Q4HRS PRN for SHORTNESS OF BREATH for 30 Days, #1 Prescribed by: ANASTASIA FITZPATRICK MD on 05/31/20 1213 Albuterol Sulfate (Proair Hfa Inhaler) 8.5 Gm Hfa.aer.ad, 2 PUFF IH PRN Q4-6HRS PRN for wheezing for 21 Days, #1 Ref 0 Prescribed by: Flora Valladares APRN on 08/04/20 1900 Clonazepam (Clonazepam) 1 Mg Tablet, 0.5 MG PO PRN Q6HRS PRN for ANXIETY, (Reported) Entered as Reported by: LAXMI CHING on 06/29/17 1607 Last Action: Converted on 11/12/20 1041 by SOFIE LEWIS Docusate Sodium (Dok) 100 Mg Capsule, 100 MG PO PRN BID PRN for HARD STOOLS for 30 Days, #30 Prescribed by: BETZY BORDEN MD on 03/31/20 1232 Last Action: Continued on 11/12/20 1041 by SOFIE LEWIS Hydrocodone/Apap 5-325 (Premont 5-325 Tablet) 1 Each Tablet, 0.5-1 TAB PO PRN Q6HRS PRN for PAIN for 6 Days, #10 Ref 0 Prescribed by: JONEL GOVEA MD on 11/13/20 1043 Hydroxyzine Pamoate (Vistaril) 25 Mg Capsule, 1 CAP PO PRN TID PRN for ANXIETY / AGITATION for 30 Days, #90 Ref 0 Prescribed by: JONEL GOVEA MD on 11/13/20 1042 Ondansetron (Ondansetron Odt) 4 Mg Tab.rapdis, 1 TAB PO PRN Q6-8HRS PRN for NAUSEA, #16 Prescribed by: GREGORIA SLAUGHTER D.O. on 11/10/20104 Polyethylene Glycol 3350 (Miralax) 119 Gm Powder, 17 GM PO DAILY PRN for CONSTIPATION, #119 Ref 0 dissolve in water Prescribed by: GREGORIA SLAUGHTER D.O. on 11/10/20104 Discontinued Medications Acetaminophen (Acetaminophen) 500 Mg Tablet, 2 TAB PO PRN Q6HRS PRN for pain or fever for 15 Days, #60 Ref 0 (Reported) Entered as Reported by: BEST BRADLEY on 10/23/202156 Nitrofurantoin Monohyd/M-Cryst (Macrobid 100 Mg Capsule) 100 Mg Capsule, 1 CAP PO BID for 7 Days, #14 Ref 0 Prescribed by: GREGORIA SLAUGHTER D.O. on 11/10/20104 Justicifation of Admission Dx: Justifications for Admission: Justification of Admission Dx: N/A JONEL GOVEA MD Nov 13, 2020 10:52
--- NOTE | 2020-11-13 10:54 | NUR ---
Patient refusing all medical recommendations. Patient wants to leave AMA. Patient asked for paper to sign to leave. Patient was educated on why recommendations for CT scan are necessary. Patient refused. Patient asked for AMA paper. Paper given to patient. Patient signed AMA. Patient is asking for transportation to be given. Awaiting to see if transportation is available.
--- NOTE | 2020-11-13 11:28 | NUR ---
patient left AMA at approximately 1115
== END 2020-11-13 11:15 | disposition left against medical advice (07) | DRG 372 ==
LOC: ER 11:52 → ED HOLD 23:14 → OBSVTOIN 23:15
PROVIDERS: ADMIT Family Medicine; ATTEND Family Medicine
DX: K65.0 Generalized (acute) peritonitis (principal); F11.20 Opioid dependence, uncomplicated; G40.919 Epilepsy, unspecified, intractable, without status epilepticus; R45.851 Suicidal ideations; D64.9 Anemia, unspecified; E78.00 Pure hypercholesterolemia, unspecified; F20.9 Schizophrenia, unspecified; F31.9 Bipolar disorder, unspecified; F41.9 Anxiety disorder, unspecified; I11.0 Hypertensive heart disease with heart failure; I50.9 Heart failure, unspecified; J44.9 Chronic obstructive pulmonary disease, unspecified; N20.0 Calculus of kidney; Z86.711 Personal history of pulmonary embolism; Z87.442 Personal history of urinary calculi; Z87.891 Personal history of nicotine dependence; Z88.0 Allergy status to penicillin; Z90.49 Acquired absence of other specified parts of digestive tract; Z90.710 Acquired absence of both cervix and uterus; Z95.828 Presence of other vascular implants and grafts; Z86.718 Personal history of other venous thrombosis and embolism; Z79.01 Long term (current) use of anticoagulants; I25.2 Old myocardial infarction; R74.01 Elevation of levels of liver transaminase levels; Z20.822 Contact with and (suspected) exposure to COVID-19
CPT/HCPCS: 36415; 74022; 80048; 80053; 80307; 80329; 81001; 83605; 83735; 84100; 85025; 87086; 93005; 96372; 96374; 96375; 99285; G0378; G0379; G0480; J0500; J1200; J1630; J2060; J2270; J3486; U0003

== ENCOUNTER 2020-12-06 18:41 | Emergency (ER) | payer OTHER ==
[~2020-12-06] VITALS: Ht 172.7 cm; Wt 91.4 kg
[~2020-12-06 18:41] MED LIST changes: -DOXY-181 PO; +DOXY100C14 PO; +HYDR25CA PO; +LISI-334 PO; -LISI20TA18 PO; +LURA40TA PO
[2020-12-06 18:58] VITALS: BP 148/91
--- NOTE | 2020-12-06 19:29 | PHYS DOC ---
Past Medical History Past Medical History: CHF, COPD, DVT, High Cholesterol, Hypertension, Kidney Stone, [place], P.U.D., Seizure, UTI, Other Additional Past Medical Histor: Pulmonary Embolism, Lupus, Bleeding Gastric Ulcers Past Surgical History: Appendectomy, Cholecystectomy, , Hysterectomy, Tonsillectomy, Other Additional Past Surgical Histo: IVC filter placed and removed,03/2020, ABD SURGERY 10/30/2020 Smoking Status: Current Every Day Smoker Alcohol Use: Occasionally Drug Use: None Adult General Chief Complaint Chief Complaint: ABDOMINAL PAIN HPI HPI Patient is a 45 year old female presenting to the ER for midepigastric abdominal pain and vomiting. History of recent hospitalization with recurrent gastric ulceration requiring partial distal gastrectomy with bilroth 2 reconstruction and removal of mesh with Dr. Landers (general surgery). Patient states that she is been having intermittent issues since the surgery was performed on October 24. States that over the last 24 hours has been having difficulty with worsening nausea and states that she is vomiting multiple times with inability to tolerate any oral intake. States that she called Dr. Oglesby for pain medication for the nausea medication who told her to come to the emergency department. Patient is denying any fever, chills, diarrhea, chest pain or shortness of breath. Review of Systems Review of Systems Constitutional: Denies fever or chills [] Eyes: Denies change in visual acuity, redness, or eye pain [] HENT: Denies nasal congestion or sore throat [] Respiratory: Denies cough or shortness of breath [] Cardiovascular: No additional information not addressed in HPI [] GI: Denies abdominal pain, nausea, vomiting, bloody stools or diarrhea [] : Denies dysuria or hematuria [] Musculoskeletal: Denies back pain or joint pain [] Integument: Denies rash or skin lesions [] Neurologic: Denies headache, focal weakness or sensory changes [] Endocrine: Denies polyuria or polydipsia [] All other systems were reviewed and found to be within normal limits, except as documented in this note. Allergies Allergies Allergies Coded Allergies Type Severity Reaction Last Updated Verified Iodine and Iodide Containing Produc Allergy Severe throat swelling to IV contrast 04/19/20 Yes sulfamethoxazole Allergy Severe SWELLING,TROUBLE BREATHING 05/27/20 Yes trimethoprim Allergy Severe SWELLING,TROUBLE BREATHING 05/27/20 Yes Cephalexin Monohydrate Allergy Intermediate SWELLING,TROUBLE BREATHING 04/16/20 Yes NSAIDS (Non-Steroidal Anti-Inflamma Allergy Intermediate 03/18/20 Yes Penicillins Allergy Intermediate SWELLING,TROUBLE BREATHING 04/16/20 Yes iodine Allergy Intermediate 03/18/20 Yes lidocaine Allergy Intermediate 03/18/20 Yes prochlorperazine edisylate Allergy Intermediate 03/18/20 Yes prochlorperazine maleate Allergy Intermediate 03/18/20 Yes Physical Exam Physical Exam Constitutional: Well developed, well nourished, no acute distress, non-toxic appearance. [] HENT: Normocephalic, atraumatic, bilateral external ears normal, oropharynx moist, no oral exudates, nose normal. [] Eyes: PERRLA, EOMI, conjunctiva normal, no discharge. [] Neck: Normal range of motion, no tenderness, supple, no stridor. [] Cardiovascular:Heart rate regular rhythm, no murmur [] Lungs & Thorax: Bilateral breath sounds clear to auscultation [] Abdomen: Bowel sounds normal, soft, no tenderness, no masses, no pulsatile masses. Midline surgical scar appears to be well-healing, clean dry and intact Skin: Warm, dry, no erythema, no rash. [] Back: No tenderness, no CVA tenderness. [] Extremities: No tenderness, no cyanosis, no clubbing, ROM intact, no edema. [] Neurologic: Alert and oriented X 3, normal motor function, normal sensory function, no focal deficits noted. [] Psychologic: Affect normal, judgement normal, mood normal. [] EKG EKG [] Radiology/Procedures Radiology/Procedures [] Course & Med Decision Making Course & Med Decision Making Pertinent Labs and Imaging studies reviewed. (See chart for details) 45F presented emergency department complaining of epigastric abdominal pain and nausea and vomiting. However the patient has a long history of coming in for the similar symptoms and malingering and attempting to see pain medications. I did exam and patient had no significant tenderness and I did not discern any concerning signs on physical exam. I explained the patient that I would attempt to obtain labs and treat her nausea but I cannot give her narcotic pain medication at this time because she is already under contract and seeing another physician. The patient probably left stating that she did not want to be evaluated any further. Patient left before I could speak to her about leaving AGAINST MEDICAL ADVICE or advise her further. Dragbrandon Disclaimer Dragon Disclaimer This electronic medical record was generated, in whole or in part, using a voice recognition dictation system. Departure Departure Impression: Primary Impression: Abdominal pain Disposition: 07 AMA/JENNIFFERD/LWLEONEL Condition: GOOD Referrals: NO PCP (PCP) MOIRA JENSEN MD Dec 06, 2020 19:28
== END 2020-12-06 19:18 | disposition left against medical advice (07) ==
LOC: ER 18:41
DX: R10.13 Epigastric pain (principal); R11.10 Vomiting, unspecified; E78.00 Pure hypercholesterolemia, unspecified; I11.0 Hypertensive heart disease with heart failure; I25.2 Old myocardial infarction; I50.9 Heart failure, unspecified; J44.9 Chronic obstructive pulmonary disease, unspecified; F17.200 Nicotine dependence, unspecified, uncomplicated; Z90.89 Acquired absence of other organs; Z90.49 Acquired absence of other specified parts of digestive tract; Z90.710 Acquired absence of both cervix and uterus; Z87.442 Personal history of urinary calculi; Z87.440 Personal history of urinary (tract) infections; Z88.0 Allergy status to penicillin; Z88.1 Allergy status to other antibiotic agents; Z88.2 Allergy status to sulfonamides; Z88.4 Allergy status to anesthetic agent; Z91.041 Radiographic dye allergy status; Z88.8 Allergy status to other drugs, medicaments and biological substances
CPT/HCPCS: 99281

== ENCOUNTER 2021-05-23 03:10 | Emergency (ER) | payer OTHER ==
[~2021-05-23] VITALS: Ht 172.7 cm; Wt 85.9 kg
[~2021-05-23 03:10] MED LIST changes: +DOXY-181 PO; -DOXY100C14 PO; -LISI-334 PO; +LISI20TA18 PO
[2021-05-23] MEDS ORDERED: TRAM-48 PO (05:19)
--- NOTE | 2021-05-23 05:19 | PHYS DOC ---
Past Medical History Past Medical History: CHF, COPD, DVT, High Cholesterol, Hypertension, Kidney Stone, [place], P.U.D., Seizure, UTI, Other Additional Past Medical Histor: Pulmonary Embolism, Lupus, Bleeding Gastric Ulcers Past Surgical History: Appendectomy, Cholecystectomy, , Hysterectomy, Tonsillectomy, Other Additional Past Surgical Histo: IVC filter placed and removed,03/2020, ABD SURGERY 10/30/2020 Smoking Status: Current Every Day Smoker Alcohol Use: Occasionally Drug Use: None General Adult EDM: Chief Complaint: KNEE INJURY HPI: HPI: Patient is a 45 year old female presents with a chief complaint of left knee pain. Patient states yesterday she injured her left knee while stepping down on some stairs. Patient twisted her knee and then fell to the ground. Patient has had pain since injury. Patient's pain is located medial lateral posterior left knee. On exam there are no deformities. Patient ambulated into the ER with a steady gait. Patient has a previous history of knee injury. Review of Systems: Review of Systems: Review of systems: Constitutional symptoms- No fever, no chills. Eyes- No Discharge, No Visual Loss Respiratory symptoms- No shortness of breath, No wheezing, No Dyspnea on Exertion Cardiovascular Systems; No chest pain, No Palpitations, No syncope Gastrointestinal symptoms: NO abdominal pain, no nausea, no vomiting or diarrhea. Genitourinary symptoms: No dysuria. Musculoskeletal symptoms: No back pain Positive extremity pain. NEUROLOGICAL Symptoms: No headache, no generalized weakness; No focal Weakness Skin: No rash. Heart Score: C/O Chest Pain: N/A Risk Factors: Risk Factors: DM, Current or recent (<one month) smoker, HTN, HLP, family hist ory of CAD, obesity. Risk Scores: Score 0 - 3: 2.5% MACE over next 6 weeks - Discharge Home Score 4 - 6: 20.3% MACE over next 6 weeks - Admit for Clinical Observation Score 7 - 10: 72.7% MACE over next 6 weeks - Early Invasive Strategies Allergies: Allergies: Allergies Coded Allergies Type Severity Reaction Last Updated Verified Iodine and Iodide Containing Produc Allergy Severe throat swelling to IV contrast 04/19/20 Yes sulfamethoxazole Allergy Severe SWELLING,TROUBLE BREATHING 05/27/20 Yes trimethoprim Allergy Severe SWELLING,TROUBLE BREATHING 05/27/20 Yes Cephalexin Monohydrate Allergy Intermediate SWELLING,TROUBLE BREATHING 04/16/20 Yes NSAIDS (Non-Steroidal Anti-Inflamma Allergy Intermediate 03/18/20 Yes Penicillins Allergy Intermediate SWELLING,TROUBLE BREATHING 04/16/20 Yes iodine Allergy Intermediate 03/18/20 Yes lidocaine Allergy Intermediate 03/18/20 Yes prochlorperazine edisylate Allergy Intermediate 03/18/20 Yes prochlorperazine maleate Allergy Intermediate 03/18/20 Yes Physical Exam: PE: General: alert, no acute distress. Skin: warm, dry and intact. HENT: bilateral external ears normal, oropharynx moist, nose normal. Head:: Normocephalic, atraumatic. Neck: Trachea midline. Eyes: EOMI, Normal conjunctiva, No drainage CARDIOVASCULAR: Regular rate and rhythm RESPIRATORY: No respiratory distress Back: Full range of motion. Skin: Warm, dry, no erythema, no rash. MUSCULOSKELETAL: Full range of motion of bilateral upper and lower extremities. Tender to palpation medial lateral posterior aspect of left knee. No deformities GASTROINTESTINAL: Abdomen soft without rebound or guarding. NEUROLOGICAL: Alert and noted to person, place and time. No neurological deficits observed Psychiatric: Cooperative. Normal judgment Current Patient Data: Vital Signs: Vital Signs Date Time Temp Pulse Resp B/P (MAP) Pulse Ox O2 Delivery O2 Flow Rate FiO2 05/23/21 04:35 98.9 70 20 149/90 (110) 98 Room Air 98.9 EKG: EKG: [] Radiology/Procedures: Radiology/Procedures: [] Impression: no fracture Course & Med Decision Making: Course & Med Decision Making Pertinent Labs and Imaging studies reviewed. (See chart for details) [] Re Disclaimer: Re Disclaimer: This electronic medical record was generated, in whole or in part, using a voice recognition dictation system. Departure Departure Impression: Primary Impression: Knee pain, left Disposition: HOME / SELF CARE / HOMELESS Condition: STABLE Referrals: NO PCP (PCP) Patient Instructions: Knee Pain Scripts Tramadol Hcl (ULTRAM) 50 Mg Tablet 1 TAB PO PRN Q6HRS PRN for pain MDD 4 Tablet(s) for 7 Days, #28 TAB 0 Refills Prov: ANDREAS VALDERRAMA DO 05/23/21 ANDREAS VALDERRAMA I DO May 23, 2021 05:19
[2021-05-23 05:22] VITALS: BP 143/80
[2021-05-23] MEDS ORDERED: HYDR-2759 PO (06:06)
--- NOTE | 2021-05-23 07:26 | RAD ---
XR KNEE _3 VIEWS_LT History: Pain. Comparison: None. Technique: 3 views of the left knee. Findings: Osseous mineralization is normal. No fracture or dislocaton. Mild tricompartmental osteophytes. Joint spaces are otherwise well-preserved. No significant effusion. No focal soft tissue swelling. Impression: 1. Minimal degenerative changes without acute osseous abnormality of the left knee. Electronically signed by: Johnny Delgado MD (05/23/2021 7:23 AM) [facility]
== END 2021-05-23 06:15 | disposition home or self-care (01) ==
LOC: ER 03:10
DX: M25.562 Pain in left knee (principal); G89.11 Acute pain due to trauma; I11.0 Hypertensive heart disease with heart failure; I50.9 Heart failure, unspecified; E78.00 Pure hypercholesterolemia, unspecified; J44.9 Chronic obstructive pulmonary disease, unspecified; Z86.718 Personal history of other venous thrombosis and embolism; I25.2 Old myocardial infarction; F17.200 Nicotine dependence, unspecified, uncomplicated; Z88.0 Allergy status to penicillin; Z88.1 Allergy status to other antibiotic agents; Z88.2 Allergy status to sulfonamides; Z91.041 Radiographic dye allergy status; Z88.4 Allergy status to anesthetic agent; Z88.8 Allergy status to other drugs, medicaments and biological substances; W18.39XA Other fall on same level, initial encounter; Y93.89 Activity, other specified; Y92.89 Other specified places as the place of occurrence of the external cause; Y99.8 Other external cause status
CPT/HCPCS: 73562; 99283

== ENCOUNTER → 2021-06-05 | Emergency (ER) | payer OTHER ==
[~2021-06-05] VITALS: Ht 167.6 cm; Wt 96.4 kg
[~2021-06-05] MED LIST changes: +HYDR-2759 PO; +IV NORMAL SALINE 1000ML BAG 1,000 ML IV ONE; +ONDANSETRON PF 4 MG/2 ML VIAL. IVP ONE
[2021-06-05 07:25] VITALS: BP 134/65
--- NOTE | 2021-06-05 08:03 | PHYS DOC ---
Past Medical History Past Medical History: CHF, COPD, DVT, High Cholesterol, Hypertension, Kidney Stone, [place], P.U.D., Seizure, UTI, Other Additional Past Medical Histor: LUPUS, PE Past Surgical History: , Hysterectomy Additional Past Surgical Histo: SX TO INTESTINE AND STOMACH Smoking Status: Current Every Day Smoker Alcohol Use: Occasionally Drug Use: None General Adult EDM: Chief Complaint: FLANK PAIN HPI: HPI: Patient is a 45 year old female who present to ER for evaluation of right flank pain, decreased urination, she feels as if her bladder is full for 3 days. Denies any cough or fever, no constipation or diarrhea, patient has history of kidney stones, has stent in her ureter several months ago. Her urologist at [facility]. Patient denies any chest pain, no cough, no fever. Review of Systems: Review of Systems: Constitutional: Denies fever or chills. [] Eyes: Denies change in visual acuity. [] HENT: Denies nasal congestion or sore throat. [] Respiratory: Denies cough or shortness of breath. [] Cardiovascular: Denies chest pain or edema. [] GI: Positive for abdominal pain with nausea, no vomiting, no diarrhea : Positive for decreased urination. Musculoskeletal: Denies back pain or joint pain. [] Integument: Denies rash. [] Neurologic: Denies headache, focal weakness or sensory changes. [] Endocrine: Denies polyuria or polydipsia. [] Lymphatic: Denies swollen glands. [] Psychiatric: Denies depression or anxiety. [] Heart Score: C/O Chest Pain: N/A Risk Factors: Risk Factors: DM, Current or recent (<one month) smoker, HTN, HLP, family history of CAD, obesity. Risk Scores: Score 0 - 3: 2.5% MACE over next 6 weeks - Discharge Home Score 4 - 6: 20.3% MACE over next 6 weeks - Admit for Clinical Observation Score 7 - 10: 72.7% MACE over next 6 weeks - Early Invasive Strategies Current Medications: Current Medications Medications (Trade) Dose Ordered Sig/Tex Start Time Stop Time Status Last Admin Dose Admin Ondansetron HCl (Zofran) 8 mg 1X ONCE 06/05/21 08:00 06/05/21 08:01 Sodium Chloride 1,000 ml @ 1,000 mls/hr 1X ONCE 06/05/21 07:30 06/05/21 08:29 Allergies: Allergies: Allergies Coded Allergies Type Severity Reaction Last Updated Verified Iodine and Iodide Containing Produc Allergy Severe throat swelling to IV contrast 04/19/20 Yes sulfamethoxazole Allergy Severe SWELLING,TROUBLE BREATHING 05/27/20 Yes trimethoprim Allergy Severe SWELLING,TROUBLE BREATHING 05/27/20 Yes Cephalexin Monohydrate Allergy Intermediate SWELLING,TROUBLE BREATHING 04/16/20 Yes NSAIDS (Non-Steroidal Anti-Inflamma Allergy Intermediate 03/18/20 Yes Penicillins Allergy Intermediate SWELLING,TROUBLE BREATHING 04/16/20 Yes iodine Allergy Intermediate 03/18/20 Yes lidocaine Allergy Intermediate 03/18/20 Yes prochlorperazine edisylate Allergy Intermediate 03/18/20 Yes prochlorperazine maleate Allergy Intermediate 03/18/20 Yes tramadol Allergy Intermediate RASH/HIVES 05/23/21 Yes Physical Exam: PE: Constitutional: Well developed, well nourished, no acute distress, non-toxic appearance. [] HENT: Normocephalic, atraumatic, bilateral external ears normal, oropharynx moist, no oral exudates, nose normal. [] Eyes: PERRLA, EOMI, conjunctiva normal, no discharge. [] Neck: Normal range of motion, no tenderness, supple, no stridor. [] Cardiovascular:Heart rate regular rhythm, no murmur [] Lungs & Thorax: Bilateral breath sounds clear to auscultation [] Abdomen: Bowel sounds normal, soft, Right flank is tender to palpation, supr apubic tenderness to palpation, no masses, no pulsatile masses. [] Skin: Warm, dry, no erythema, no rash. [] Back: No tenderness, no CVA tenderness. [] Extremities: No tenderness, no cyanosis, no clubbing, ROM intact, no edema. [] Neurologic: Alert and oriented X 3, normal motor function, normal sensory function, no focal deficits noted. [] Psychologic: Affect normal, judgement normal, mood normal. [] Current Patient Data: Labs: Laboratory Tests Test 06/05/21 07:42 Sodium Level 141 mmol/L Potassium Level 4.3 mmol/L Chloride Level 108 mmol/L Carbon Dioxide Level 22 mmol/L Anion Gap 11 Blood Urea Nitrogen 18 mg/dL Creatinine 0.8 mg/dL Estimated GFR (Cockcroft-Gault) 77.6 BUN/Creatinine Ratio 23 Glucose Level 96 mg/dL Calcium Level 8.9 mg/dL Magnesium Level 2.2 mg/dL Total Bilirubin 0.1 mg/dL Aspartate Amino Transf (AST/SGOT) 9 U/L Alanine Aminotransferase (ALT/SGPT) 17 U/L Alkaline Phosphatase 86 U/L Total Protein 7.0 g/dL Albumin 3.5 g/dL Albumin/Globulin Ratio 1.0 Lipase 202 U/L Current Medications Medications (Trade) Dose Ordered Sig/Tex Route PRN Reason Start Time Stop Time Status Last Admin Dose Admin Sodium Chloride 1,000 ml @ 1,000 mls/hr 1X ONCE IV 06/05/21 07:30 06/05/21 08:29 DC Ondansetron HCl (Zofran) 8 mg 1X ONCE IVP 06/05/21 08:00 06/05/21 08:01 DC Vital Signs: Vital Signs Date Time Temp Pulse Resp B/P (MAP) Pulse Ox O2 Delivery O2 Flow Rate FiO2 06/05/21 07:25 98.4 78 20 134/65 96 Room Air 98.4 EKG: EKG: [] Radiology/Procedures: Radiology/Procedures: [] Course & Med Decision Making: Course & Med Decision Making Pertinent Labs and Imaging studies reviewed. (See chart for details) Patient demanded IV pain medication. Informed patient that whenever she comes back from CT scan, we will consider further pain medication for her. Patient did not like it so she wanted to leave AGAINST MEDICAL ADVICE. Notified by nurse that patient wishes to leave against medical advice. Had an extensive discussion with the patient regarding the risks of leaving AMA in cluding but not limited to , permanent disability, and worsening condition. Patient acknowledged the risks and agreed to take full responsibility. Patient was A&Ox4 and had full medical decision making capacity. Patient signed AMA form stating they understood risks and ambulated out of ED with steady gait. Dragon Disclaimer: Dragbrandon Disclaimer: This electronic medical record was generated, in whole or in part, using a voice recognition dictation system. Departure Departure Impression: Primary Impression: Flank pain Disposition: LEFT AGAINST MEDICAL ADVICE Condition: STABLE Referrals: NO PCP (PCP) ALEXEI ODONNELL DO Jun 05, 2021 08:03
[2021-06-05 08:05] LABS: CALCIUM 8.9 mg/dL (8.5-10.1); CREATININE 0.8 mg/dL (0.6-1.0); GFR 77.6; POTASSIUM 4.3 mmol/L (3.5-5.1)
[2021-06-05 08:11] LABS: ALBUMIN 3.5 g/dL (3.4-5.0); MAGNESIUM 2.2 mg/dL (1.8-2.4); TOTAL BILIRUBIN 0.1 mg/dL (0.2-1.0)
== END | disposition left against medical advice (07) ==
LOC: ER 01:19
DX: R10.31 Right lower quadrant pain (principal); I11.0 Hypertensive heart disease with heart failure; I50.9 Heart failure, unspecified; J44.9 Chronic obstructive pulmonary disease, unspecified; E78.00 Pure hypercholesterolemia, unspecified; I25.2 Old myocardial infarction; F17.200 Nicotine dependence, unspecified, uncomplicated; Z90.710 Acquired absence of both cervix and uterus; Z88.1 Allergy status to other antibiotic agents; Z88.2 Allergy status to sulfonamides; Z88.0 Allergy status to penicillin; Z88.4 Allergy status to anesthetic agent; Z91.041 Radiographic dye allergy status; Z88.6 Allergy status to analgesic agent; Z88.8 Allergy status to other drugs, medicaments and biological substances
CPT/HCPCS: 36415; 80053; 83690; 83735; 99283

== ENCOUNTER 2021-07-05 19:29 | Emergency (ER) | payer OTHER ==
[~2021-07-05] VITALS: Ht 172.7 cm; Wt 95.5 kg
[~2021-07-05 19:29] MED LIST changes: +DOCU-148 PO; -DOCU-153 PO; -IV NORMAL SALINE 1000ML BAG 1,000 ML IV ONE; -ONDANSETRON PF 4 MG/2 ML VIAL. IVP ONE
[2021-07-05] MEDS ORDERED: ONDANSETRON PF 4 MG/2 ML VIAL. IVP ONE (20:45)
[2021-07-05] MEDS ORDERED: IV NORMAL SALINE 1000ML BAG 1,000 ML IV ONE (20:45)
[2021-07-05] MEDS ORDERED: KETOROLAC 15 MG/ML VIAL. IVP ONE ×2 (21:30→23:30)
[2021-07-05 21:44] LABS: BASO % 1 % (0-3); EOS # 0.4 x10^3/uL (0.0-0.7); EOS % 5 % (0-3); HEMATOCRIT 35.2 % (36.0-47.0); LYMPH # 3.4 x10^3/uL (1.0-4.8); LYMPH % 42 % (24-48); MEAN CORPUSCULAR HEMOGLOBIN 33 pg (25-35); MEAN CORPUSCULAR HGB CONC 34 g/dL (31-37); MEAN CORPUSCULAR VOLUME 96 fL (79-100); MONO # 0.7 x10^3/uL (0.0-1.1); MONO % 9 % (0-9); NEUT # 3.4 x10^3/uL (1.8-7.7); NEUT % 43 % (31-73); PLATELET COUNT 482 x10^3/uL (140-400); RED BLOOD COUNT 3.65 x10^6/uL (3.50-5.40); RED CELL DISTRIBUTION WIDTH 13.4 % (11.5-14.5)
[2021-07-05 21:56] LABS: CALCIUM 8.9 mg/dL (8.5-10.1); CREATININE 1.1 mg/dL (0.6-1.0); GFR 53.7; POTASSIUM 4.1 mmol/L (3.5-5.1)
[2021-07-05 22:01] LABS: ALBUMIN 3.7 g/dL (3.4-5.0); ALBUMIN/GLOBULIN RATIO 1.2 (1.0-1.7); TOTAL BILIRUBIN 0.2 mg/dL (0.2-1.0); TOTAL PROTEIN 6.8 g/dL (6.4-8.2)
--- NOTE | 2021-07-05 22:47 | RAD ---
CT ABDOMEN+PELVIS WO INDICATION: abd pain EXAM: Noncontrast CT of the abdomen and pelvis. Coronal and sagittal reformatted images were perform ed. PQRS compliance statement: One or more of the following individualized dose reduction techniques were utilized for this examinat ion: 1. Automated exposure control 2. Adjustment of the mA and/or kV according to patient size 3. Use of iterative reconstruction technique COMPARISON: 11/09/2020 FINDINGS: No free air, free fluid, or fluid collection. Lower chest: The visualized lower lungs demonstrate mosaic attenuation. No pleural or pericardial eff usion. ABDOMEN: Liver: The noncontrast liver is homogeneous in attenuation. Gallbladder and biliary: Cholecystectomy. Normal caliber bile ducts. Spleen: Normal spleen. Pancreas: The noncontrast pancreas is homogeneous in attenuation without peripancreatic inflammatory changes. Adrenal glands: Normal adrenal glands. Kidneys and ureters: No opaque urinary calculi. Normal kidneys and ureters. GI tract: Postsurgical changes of gastric bypass. Normal caliber small bowel and colon. Appendix is n ot seen. Vascular structures: Normal caliber abdominal aorta. IVC filter. Lymph nodes: No lymphadenopathy in the abdomen or pelvis. PELVIS: Genitourinary system: Normal bladder. Hysterectomy. SKELETAL STRUCTURES AND SOFT TISSUES: No fracture or destructive lesion in the visualized skeleton. IMPRESSION: 1. No acute findings. 2. Mosaic attenuation at the lung bases, which may be due to small airways disease. Electronically signed by: Prudencio Leigh MD (07/05/2021 10:44 PM) [facility]
--- NOTE | 2021-07-05 23:09 | PHYS DOC ---
Past Medical History Past Medical History: CHF, COPD, DVT, High Cholesterol, Hypertension, Kidney Stone, [place], P.U.D., Seizure, UTI, Other Additional Past Medical Histor: LUPUS, PE Past Surgical History: , Hysterectomy Additional Past Surgical Histo: SX TO INTESTINE AND STOMACH Smoking Status: Current Every Day Smoker Alcohol Use: Occasionally Drug Use: None General Adult EDM: Chief Complaint: ABDOMINAL PAIN HPI: HPI: Patient is a 45 year old female with a history of chronic abdominal pain presenting to the ED today complaining of moderate mid abdominal pain, symptoms of been going on since this morning, she is also complaining of nausea, patient denies anything specifically exacerbating or relieving her pain. Denies any diarrhea. Review of Systems: Review of Systems: Constitutional: Denies fever or chills. [] Eyes: Denies change in visual acuity. [] HENT: Denies nasal congestion or sore throat. [] Respiratory: Denies cough or shortness of breath. [] Cardiovascular: Denies chest pain or edema. [] GI: Reports chronic abdominal pain with nausea, denies vomiting, bloody stools or diarrhea. [] : Denies dysuria. [] Musculoskeletal: Denies back pain or joint pain. [] Integument: Denies rash. [] Neurologic: Denies headache, focal weakness or sensory changes. [] . [] Psychiatric: Denies depression or anxiety. [] Heart Score: C/O Chest Pain: N/A Risk Factors: Risk Factors: DM, Current or recent (<one month) smoker, HTN, HLP, family history of CAD, obesity. Risk Scores: Score 0 - 3: 2.5% MACE over next 6 weeks - Discharge Home Score 4 - 6: 20.3% MACE over next 6 weeks - Admit for Clinical Observation Score 7 - 10: 72.7% MACE over next 6 weeks - Early Invasive Strategies Current Medications: Current Medications Medications (Trade) Dose Ordered Sig/Tex Start Time Stop Time Status Last Admin Dose Admin Ketorolac Tromethamine (Toradol 15mg Vial) 15 mg 1X ONCE 07/05/21 23:30 07/05/21 23:31 Ondansetron HCl (Zofran) 4 mg 1X ONCE 07/05/21 20:45 07/05/21 20:46 DC 07/05/21 21:57 4 MG Sodium Chloride 1,000 ml @ 1,000 mls/hr 1X ONCE 07/05/21 20:45 07/05/21 21:44 DC 07/05/21 21:57 1,000 MLS/HR Allergies: Allergies: Allergies Coded Allergies Type Severity Reaction Last Updated Verified Iodine and Iodide Containing Produc Allergy Severe throat swelling to IV contrast 04/19/20 Yes sulfamethoxazole Allergy Severe SWELLING,TROUBLE BREATHING 05/27/20 Yes trimethoprim Allergy Severe SWELLING,TROUBLE BREATHING 05/27/20 Yes Cephalexin Monohydrate Allergy Intermediate SWELLING,TROUBLE BREATHING 04/16/20 Yes NSAIDS (Non-Steroidal Anti-Inflamma Allergy Intermediate 03/18/20 Yes Penicillins Allergy Intermediate SWELLING,TROUBLE BREATHING 04/16/20 Yes iodine Allergy Intermediate 03/18/20 Yes lidocaine Allergy Intermediate 03/18/20 Yes prochlorperazine edisylate Allergy Intermediate 03/18/20 Yes prochlorperazine maleate Allergy Intermediate 03/18/20 Yes tramadol Allergy Intermediate RASH/HIVES 05/23/21 Yes Physical Exam: PE: Constitutional: Well developed, well nourished, no acute distress, non-toxic appearance. [] HENT: Normocephalic, atraumatic, bilateral external ears normal, oropharynx moist, no oral exudates, nose normal. [] Eyes: PERRLA, EOMI, conjunctiva normal, no discharge. [] Neck: Normal range of motion, no tenderness, supple, no stridor. [] Cardiovascular:Heart rate regular rhythm, no murmur [] Lungs & Thorax: Bilateral breath sounds clear to auscultation [] Abdomen: Mid abdomen with a vertical well approximated old scar. Bowel sounds normal, soft, tenderness in the mid abdomen, no right upper quadrant or right lower quadrant tenderness, no masses, no pulsatile masses. [] Skin: Warm, dry, no erythema, no rash. [] Back: No tenderness, no CVA tenderness. [] Extremities: No tenderness, no cyanosis, no clubbing, ROM intact, no edema. [] Neurologic: Alert and oriented X 3, normal motor function, normal sensory function, no focal deficits noted. [] Psychologic: Affect normal, judgement normal, mood normal. [] Current Patient Data: Labs: Laboratory Tests Test 07/05/21 21:10 07/05/21 21:35 SARS-CoV-2 Antigen (Rapid) Negative (NEGATIVE) White Blood Count 8.0 x10^3/uL (4.0-11.0) Red Blood Count 3.65 x10^6/uL (3.50-5.40) Hemoglobin 12.0 g/dL (12.0-15.5) Hematocrit 35.2 % (36.0-47.0) L Mean Corpuscular Volume 96 fL (79-100) Mean Corpuscular Hemoglobin 33 pg (25-35) Mean Corpuscular Hemoglobin Concent 34 g/dL (31-37) Red Cell Distribution Width 13.4 % (11.5-14.5) Platelet Count 482 x10^3/uL (140-400) H Neutrophils (%) (Auto) 43 % (31-73) Lymphocytes (%) (Auto) 42 % (24-48) Monocytes (%) (Auto) 9 % (0-9) Eosinophils (%) (Auto) 5 % (0-3) H Basophils (%) (Auto) 1 % (0-3) Neutrophils # (Auto) 3.4 x10^3/uL (1.8-7.7) Lymphocytes # (Auto) 3.4 x10^3/uL (1.0-4.8) Monocytes # (Auto) 0.7 x10^3/uL (0.0-1.1) Eosinophils # (Auto) 0.4 x10^3/uL (0.0-0.7) Basophils # (Auto) 0.0 x10^3/uL (0.0-0.2) Sodium Level 139 mmol/L (136-145) Potassium Level 4.1 mmol/L (3.5-5.1) Chloride Level 106 mmol/L (98-107) Carbon Dioxide Level 22 mmol/L (21-32) Anion Gap 11 (6-14) Blood Urea Nitrogen 19 mg/dL (7-20) Creatinine 1.1 mg/dL (0.6-1.0) H Estimated GFR (Cockcroft-Gault) 53.7 BUN/Creatinine Ratio 17 (6-20) Glucose Level 101 mg/dL (70-99) H Calcium Level 8.9 mg/dL (8.5-10.1) Total Bilirubin 0.2 mg/dL (0.2-1.0) Aspartate Amino Transferase (AST) 8 U/L (15-37) L Alanine Aminotransferase (ALT) 16 U/L (14-59) Alkaline Phosphatase 99 U/L (46-116) Total Protein 6.8 g/dL (6.4-8.2) Albumin 3.7 g/dL (3.4-5.0) Albumin/Globulin Ratio 1.2 (1.0-1.7) Lipase 70 U/L (73-393) L Ethyl Alcohol Level < 10 mg/dL (0-10) Laboratory Tests 07/05/21 21:35 Laboratory Tests 07/05/21 21:35 EKG: EKG: [] Radiology/Procedures: Radiology/Procedures: []PROCEDURE: CT ABDOMEN PELVIS WO CONTRAST CT ABDOMEN+PELVIS WO INDICATION: abd pain EXAM: Noncontrast CT of the abdomen and pelvis. Coronal and sagittal reformatted images were performed. PQRS compliance statement: One or more of the following individualized dose reduction techniques were utilized for this examination: 1. Automated exposure control 2. Adjustment of the mA and/or kV according to patient size 3. Use of iterative reconstruction technique COMPARISON: 11/09/2020 FINDINGS: No free air, free fluid, or fluid collection. Lower chest: The visualized lower lungs demonstrate mosaic attenuation. No pleural or pericardial effusion. ABDOMEN: Liver: The noncontrast liver is homogeneous in attenuation. Gallbladder and biliary: Cholecystectomy. Normal caliber bile ducts. Spleen: Normal spleen. Pancreas: The noncontrast pancreas is homogeneous in attenuation without peripancreatic inflammatory changes. Adrenal glands: Normal adrenal glands. Kidneys and ureters: No opaque urinary calculi. Normal kidneys and ureters. GI tract: Postsurgical changes of gastric bypass. Normal caliber small bowel and colon. Appendix is not seen. Vascular structures: Normal caliber abdominal aorta. IVC filter. Lymph nodes: No lymphadenopathy in the abdomen or pelvis. PELVIS: Genitourinary system: Normal bladder. Hysterectomy. SKELETAL STRUCTURES AND SOFT TISSUES: No fracture or destructive lesion in the visualized skeleton. IMPRESSION: 1. No acute findings. 2. Mosaic attenuation at the lung bases, which may be due to small airways disease. Electronically signed by: Hemanth Harvey MD (07/05/2021 10:44 PM) [facility] DICTATED and SIGNED BY: HEMANTH HARVEY MD DATE: 07/05/21 [id number] 0 Course & Med Decision Making: Course & Med Decision Making Pertinent Labs and Imaging studies reviewed. (See chart for details) This is a 45-year-old female patient well-known to this ED for chronic abdominal pain presenting today complaining of the same and asking for pain medicine. CBC CMP lipase with no acute findings, CT of the abdomen and pelvic was obtained, no acute findings. Patient was discharged to home. Follow-up with her own doctor as soon as she can Dragon Disclaimer: Dragon Disclaimer: This electronic medical record was generated, in whole or in part, using a voice recognition dictation system. Departure Departure Impression: Primary Impression: Chronic abdominal pain Disposition: HOME / SELF CARE / HOMELESS Condition: STABLE Referrals: NO PCP (PCP) MOHAN CAMPBELL MD follow up in one week Patient Instructions: Abdominal Pain Additional Instructions: You were evaluated in the emergency room for chronic abdominal pain. Your CAT scan of the abdomen and pelvis is negative for any acute findings. Please follow-up with your own doctor in 1 to 2 weeks. BALA FAJARDO STUDY DIRECTOR Jul 05, 2021 23:09
[2021-07-05 23:19] VITALS: BP 105/58
--- NOTE | 2021-07-06 15:59 | NUR ---
IP: Informed pt of negative covid test. Pt verbalized understanding.
== END 2021-07-05 23:29 | disposition home or self-care (01) ==
LOC: ER 19:29
DX: G89.29 Other chronic pain (principal); R10.9 Unspecified abdominal pain; R11.0 Nausea; I11.0 Hypertensive heart disease with heart failure; I50.9 Heart failure, unspecified; J44.9 Chronic obstructive pulmonary disease, unspecified; E78.00 Pure hypercholesterolemia, unspecified; I25.2 Old myocardial infarction; F17.200 Nicotine dependence, unspecified, uncomplicated; Z20.822 Contact with and (suspected) exposure to COVID-19; Z86.718 Personal history of other venous thrombosis and embolism; Z87.11 Personal history of peptic ulcer disease; Z87.440 Personal history of urinary (tract) infections; Z88.8 Allergy status to other drugs, medicaments and biological substances; Z88.2 Allergy status to sulfonamides; Z88.6 Allergy status to analgesic agent; Z88.1 Allergy status to other antibiotic agents; Z88.0 Allergy status to penicillin; Z88.4 Allergy status to anesthetic agent
CPT/HCPCS: 36415; 74176; 80053; 83690; 85025; 87426; 96361; 96374; 96375; 96376; 99285; G0480; J1885; J2405; J7030; U0003; U0005

== ENCOUNTER 2021-07-10 16:51 | Emergency (ER) | payer OTHER ==
[~2021-07-10] VITALS: Ht 172.7 cm; Wt 95.0 kg
[2021-07-10] MEDS ORDERED: KETOROLAC 30 MG/ML VIAL. IVP ONE (17:30)
[2021-07-10] MEDS ORDERED: ONDANSETRON PF 4 MG/2 ML VIAL. IVP ONE (17:30)
[2021-07-10] MEDS ORDERED: IV NORMAL SALINE 1000ML BAG 1,000 ML IV ONE (17:30)
[2021-07-10 17:49] LABS: BILIRUBIN,URINE NEGATIVE (NEG); CLARITY,URINE CLEAR; COLOR,URINE YELLOW; NITRITE,URINE NEGATIVE (NEG); PROTEIN,URINE NEGATIVE (NEG-TRACE); UROBILINOGEN,URINE 0.2 mg/dL (0.2 mg/dL)
[2021-07-10 17:51] VITALS: BP 137/72
[2021-07-10 17:59] LABS: BACTERIA,URINE 0 /HPF (0-FEW); RBC,URINE 0 /HPF (0-2); WBC,URINE OCC /HPF (0-4)
[2021-07-10 18:37] LABS: BASO # 0.1 x10^3/uL (0.0-0.2); BASO % 1 % (0-3); EOS # 0.4 x10^3/uL (0.0-0.7); EOS % 4 % (0-3); HEMATOCRIT 33.1 % (36.0-47.0); HEMOGLOBIN 11.5 g/dL (12.0-15.5); LYMPH # 3.2 x10^3/uL (1.0-4.8); LYMPH % 32 % (24-48); MEAN CORPUSCULAR HEMOGLOBIN 33 pg (25-35); MEAN CORPUSCULAR HGB CONC 35 g/dL (31-37); MEAN CORPUSCULAR VOLUME 95 fL (79-100); MONO # 0.7 x10^3/uL (0.0-1.1); MONO % 7 % (0-9); NEUT # 5.7 x10^3/uL (1.8-7.7); NEUT % 56 % (31-73); PLATELET COUNT 554 x10^3/uL (140-400); RED BLOOD COUNT 3.48 x10^6/uL (3.50-5.40); WHITE BLOOD COUNT 10.1 x10^3/uL (4.0-11.0)
--- NOTE | 2021-07-10 18:40 | RAD ---
INDICATION: Reason: Chronic abdominal pains with history of bowel perforations / Spl. Instructions: / History: . COMPARISON: July 05, 2021 TECHNIQUE: Axial CT images obtained through the abdomen and pelvis without contrast. One or more of the following individualized dose reduction techniques were utilized for this examinat ion: 1. Automated exposure control; 2. Adjustment of the mA and/or kV according to patient size; 3 . Use of iterative reconstruction technique. FINDINGS: There is some mosaic attenuation at the lung bases again seen and again could be from small airway in flammation. Linear opacity at the right lung base which can be seen with scarring or atelectasis. Abdominal aorta is not aneurysmal. Inferior vena cava filter is seen. Post gastric bypass changes. Postcholecystectomy. No peripancreatic fluid collection. Spleen is unremarkable. No hydronephrosis. Urinary bladder is partially distended. Appendix is not well seen. Moderate stool within the cecum. No dilated loops of bowel to suggest obstruction. Degenerative changes of spine. IMPRESSION: * No evidence of bowel obstruction or definite active inflammatory changes to the bowel. * Repeat demonstration of mosaic attenuation of the lungs. Electronically signed by: Osito Maher MD (07/10/2021 6:38 PM) [id number]
[2021-07-10 18:43] LABS: CALCIUM 8.9 mg/dL (8.5-10.1); CREATININE 0.9 mg/dL (0.6-1.0); GFR 67.7
[2021-07-10 18:49] LABS: ALBUMIN 3.5 g/dL (3.4-5.0); ALBUMIN/GLOBULIN RATIO 1.1 (1.0-1.7); TOTAL BILIRUBIN 0.3 mg/dL (0.2-1.0); TOTAL PROTEIN 6.8 g/dL (6.4-8.2)
--- NOTE | 2021-07-10 19:12 | PHYS DOC ---
Past Medical History Past Medical History: CHF, COPD, DVT, High Cholesterol, Hypertension, Kidney Stone, [place], P.U.D., Seizure, UTI, Other Additional Past Medical Histor: LUPUS, PE Past Surgical History: , Hysterectomy Additional Past Surgical Histo: SX TO INTESTINE AND STOMACH Smoking Status: Current Every Day Smoker Alcohol Use: None Drug Use: None General Adult EDM: Chief Complaint: ABDOMINAL PAIN HPI: HPI: Patient is a 45 female who presents to the emergency department complaining of ongoing abdominal pain. Patient denies nausea, vomiting, diarrhea. Patient reports she needs something stronger for pain than she had the last time she was here. Patient denies any specific therapies or medications that make her pain worse or better. Patient denies fever or chills. Patient denies any other physical complaints or physical concerns. Patient reports being at daily cigarette smoker. Drinks alcohol occasionally, denies illicit drug use or marijuana use. Review of Systems: Review of Systems: 14 body systems of review of systems have been reviewed. See HPI for pertinent positives and negative responses, otherwise all other systems are negative, nonpertinent or noncontributory. Constitutional: Negative except as outlined in HPI above. Skin: Negative except as outlined in HPI above. Eyes: Negative except as outlined in HPI above. HENT: Negative except as outlined in HPI above. Respiratory: Negative except as outlined in HPI above. Cardiovascular: Negative except as outlined in HPI above. GI: Negative except as outlined in HPI above. : Negative except as outlined in HPI above. Musculoskeletal: Negative except as outlined in HPI above. Integument: Negative except as outlined in HPI above. Neurologic: Negative except as outlined in HPI above. Endocrine: Negative except as outlined in HPI above. Lymphatic: Negative except as outlined in HPI above. Psychiatric: Negative except as outlined in HPI above. Heart Score: C/O Chest Pain: No Risk Factors: Risk Factors: DM, Current or recent (<one month) smoker, HTN, HLP, family history of CAD, obesity. Risk Scores: Score 0 - 3: 2.5% MACE over next 6 weeks - Discharge Home Score 4 - 6: 20.3% MACE over next 6 weeks - Admit for Clinical Observation Score 7 - 10: 72.7% MACE over next 6 weeks - Early Invasive Strategies Current Medications: Current Medications Medications (Trade) Dose Ordered Sig/Tex Start Time Stop Time Status Last Admin Dose Admin Ketorolac Tromethamine (Toradol 30mg Vial) 30 mg 1X ONCE 07/10/21 17:30 07/10/21 17:31 DC 07/10/21 17:40 30 MG Ondansetron HCl (Zofran) 4 mg 1X ONCE 07/10/21 17:30 07/10/21 17:31 DC 07/10/21 17:40 4 MG Sodium Chloride 1,000 ml @ 1,000 mls/hr 1X ONCE 07/10/21 17:30 07/10/21 18:29 DC 07/10/21 17:41 1,000 MLS/HR Allergies: Allergies: Allergies Coded Allergies Type Severity Reaction Last Updated Verified Iodine and Iodide Containing Produc Allergy Severe throat swelling to IV contrast 04/19/20 Yes sulfamethoxazole Allergy Severe SWELLING,TROUBLE BREATHING 05/27/20 Yes trimethoprim Allergy Severe SWELLING,TROUBLE BREATHING 05/27/20 Yes Cephalexin Monohydrate Allergy Intermediate SWELLING,TROUBLE BREATHING 04/16/20 Yes NSAIDS (Non-Steroidal Anti-Inflamma Allergy Intermediate 03/18/20 Yes Penicillins Allergy Intermediate SWELLING,TROUBLE BREATHING 04/16/20 Yes iodine Allergy Intermediate 03/18/20 Yes lidocaine Allergy Intermediate 03/18/20 Yes prochlorperazine edisylate Allergy Intermediate 03/18/20 Yes prochlorperazine maleate Allergy Intermediate 03/18/20 Yes tramadol Allergy Intermediate RASH/HIVES 05/23/21 Yes Physical Exam: PE: Constitutional: Well developed, well nourished, no acute distress, non-toxic appearance. 45-year-old female in no apparent distress. Patient's stated level of pain exceeds patient's physical appearance or examination. HENT: Normocephalic, atraumatic. Eyes: Conjunctiva normal, no discharge. Neck: Normal range of motion, no stridor. Cardiovascular: No cyanosis appreciated, distal cap refill less than 2 seconds. Lungs & Thorax: Patient is in no respiratory distress, no audible adventitious lung sounds appreciated. Abdomen: No abnormalities noted, no masses, normal bowel sounds, no skin discoloration or ecchymosis of the abdomen, pain to palpation all 4 quadrants. No distention. Soft. Skin: Warm, dry, no erythema, no rash. Back: No tenderness, no deformities. Extremities: No tenderness, no cyanosis, no clubbing, ROM intact, no edema. Neurologic: Alert and oriented X 3, normal motor function, normal sensory fu nction, no focal deficits noted. Psychologic: Affect normal, judgement normal, mood normal. Current Patient Data: Labs: Laboratory Tests Test 07/10/21 17:05 07/10/21 17:30 Urine Collection Type Unknown Urine Color Yellow Urine Clarity Clear Urine pH 6.0 Urine Specific Boyd >=1.030 Urine Protein Negative mg/dL Urine Glucose (UA) Negative mg/dL Urine Ketones (Stick) Negative mg/dL Urine Blood Negative Urine Nitrite Negative Urine Bilirubin Negative Urine Urobilinogen Dipstick 0.2 mg/dL Urine Leukocyte Esterase Trace Urine RBC 0 /HPF Urine WBC Occ /HPF Urine Squamous Epithelial Cells Few /LPF Urine Bacteria 0 /HPF White Blood Count 10.1 x10^3/uL Red Blood Count 3.48 x10^6/uL Hemoglobin 11.5 g/dL Hematocrit 33.1 % Mean Corpuscular Volume 95 fL Mean Corpuscular Hemoglobin 33 pg Mean Corpuscular Hemoglobin Concent 35 g/dL Red Cell Distribution Width 13.0 % Platelet Count 554 x10^3/uL Neutrophils (%) (Auto) 56 % Lymphocytes (%) (Auto) 32 % Monocytes (%) (Auto) 7 % Eosinophils (%) (Auto) 4 % Basophils (%) (Auto) 1 % Neutrophils # (Auto) 5.7 x10^3/uL Lymphocytes # (Auto) 3.2 x10^3/uL Monocytes # (Auto) 0.7 x10^3/uL Eosinophils # (Auto) 0.4 x10^3/uL Basophils # (Auto) 0.1 x10^3/uL Sodium Level 139 mmol/L Potassium Level 4.0 mmol/L Chloride Level 105 mmol/L Carbon Dioxide Level 23 mmol/L Anion Gap 11 Blood Urea Nitrogen 13 mg/dL Creatinine 0.9 mg/dL Estimated GFR (Cockcroft-Gault) 67.7 BUN/Creatinine Ratio 14 Glucose Level 83 mg/dL Calcium Level 8.9 mg/dL Total Bilirubin 0.3 mg/dL Aspartate Amino Transf (AST/SGOT) 6 U/L Alanine Aminotransferase (ALT/SGPT) 11 U/L Alkaline Phosphatase 97 U/L Total Protein 6.8 g/dL Albumin 3.5 g/dL Albumin/Globulin Ratio 1.1 Lipase 51 U/L Current Medications Medications (Trade) Dose Ordered Sig/Tex Route PRN Reason Start Time Stop Time Status Last Admin Dose Admin Sodium Chloride 1,000 ml @ 1,000 mls/hr 1X ONCE IV 07/10/21 17:30 07/10/21 18:29 DC 07/10/21 17:41 1,000 MLS/HR Ketorolac Tromethamine (Toradol 30mg Vial) 30 mg 1X ONCE IVP 07/10/21 17:30 07/10/21 17:31 DC 07/10/21 17:40 30 MG Ondansetron HCl (Zofran) 4 mg 1X ONCE IVP 07/10/21 17:30 07/10/21 17:31 DC 07/10/21 17:40 4 MG Laboratory Tests Test 07/10/21 17:05 07/10/21 17:30 Urine Collection Type Unknown Urine Color Yellow Urine Clarity Clear Urine pH 6.0 (<5.0-8.0) Urine Specific Boyd >=1.030 (1.000-1.030) Urine Protein Negative mg/dL (NEG-TRACE) Urine Glucose (UA) Negative mg/dL (NEG) Urine Ketones (Stick) Negative mg/dL (NEG) Urine Blood Negative (NEG) Urine Nitrite Negative (NEG) Urine Bilirubin Negative (NEG) Urine Urobilinogen Dipstick 0.2 mg/dL (0.2 mg/dL) Urine Leukocyte Esterase Trace (NEG) Urine RBC 0 /HPF (0-2) Urine WBC Occ /HPF (0-4) Urine Squamous Epithelial Cells Few /LPF Urine Bacteria 0 /HPF (0-FEW) White Blood Count 10.1 x10^3/uL (4.0-11.0) Red Blood Count 3.48 x10^6/uL (3.50-5.40) L Hemoglobin 11.5 g/dL (12.0-15.5) L Hematocrit 33.1 % (36.0-47.0) L Mean Corpuscular Volume 95 fL (79-100) Mean Corpuscular Hemoglobin 33 pg (25-35) Mean Corpuscular Hemoglobin Concent 35 g/dL (31-37) Red Cell Distribution Width 13.0 % (11.5-14.5) Platelet Count 554 x10^3/uL (140-400) H Neutrophils (%) (Auto) 56 % (31-73) Lymphocytes (%) (Auto) 32 % (24-48) Monocytes (%) (Auto) 7 % (0-9) Eosinophils (%) (Auto) 4 % (0-3) H Basophils (%) (Auto) 1 % (0-3) Neutrophils # (Auto) 5.7 x10^3/uL (1.8-7.7) Lymphocytes # (Auto) 3.2 x10^3/uL (1.0-4.8) Monocytes # (Auto) 0.7 x10^3/uL (0.0-1.1) Eosinophils # (Auto) 0.4 x10^3/uL (0.0-0.7) Basophils # (Auto) 0.1 x10^3/uL (0.0-0.2) Sodium Level 139 mmol/L (136-145) Potassium Level 4.0 mmol/L (3.5-5.1) Chloride Level 105 mmol/L (98-107) Carbon Dioxide Level 23 mmol/L (21-32) Anion Gap 11 (6-14) Blood Urea Nitrogen 13 mg/dL (7-20) Creatinine 0.9 mg/dL (0.6-1.0) Estimated GFR (Cockcroft-Gault) 67.7 BUN/Creatinine Ratio 14 (6-20) Glucose Level 83 mg/dL (70-99) Calcium Level 8.9 mg/dL (8.5-10.1) Total Bilirubin Pending Aspartate Amino Transferase (AST) Pending Alanine Aminotransferase (ALT) Pending Alkaline Phosphatase Pending Total Protein Pending Albumin Pending Albumin/Globulin Ratio Pending Lipase Pending Laboratory Tests 07/10/21 17:30 Laboratory Tests 07/10/21 17:30 Vital Signs: Vital Signs Date Time Temp Pulse Resp B/P (MAP) Pulse Ox O2 Delivery O2 Flow Rate FiO2 07/10/21 16:53 98.4 79 16 148/78 (74) 99 Room Air 98.4 EKG: EKG: [] Radiology/Procedures: Radiology/Procedures: PATIENT: TRACIE GAONA SACCOUNT: [id number] : 1975 LOCATION: ER AGE: 45 SEX: F EXAM STATUS: REG ER ORD. PHYSICIAN: GREGORIA BURNS APRN REASON: Chronic abdominal pains with history of bowel perforations PROCEDURE: CT ABDOMEN PELVIS WO CONTRAST INDICATION: Reason: Chronic abdominal pains with history of bowel perforations / Spl. Instructions: / History: . COMPARISON: July 05, 2021 TECHNIQUE: Axial CT images obtained through the abdomen and pelvis without contrast. One or more of the following individualized dose reduction techniques were utilized for this examination: 1. Automated exposure control; 2. Adjustment of the mA and/or kV according to patient size; 3. Use of iterative reconstruction technique. FINDINGS: There is some mosaic attenuation at the lung bases again seen and again could be from small airway inflammation. Linear opacity at the right lung base which can be seen with scarring or atel ectasis. Abdominal aorta is not aneurysmal. Inferior vena cava filter is seen. Post gastric bypass changes. Postcholecystectomy. No peripancreatic fluid collection. Spleen is unremarkable. No hydronephrosis. Urinary bladder is partially distended. Appendix is not well seen. Moderate stool within the cecum. No dilated loops of bowel to suggest obstruction. Degenerative changes of spine. IMPRESSION: * No evidence of bowel obstruction or definite active inflammatory changes to the bowel. * Repeat demonstration of mosaic attenuation of the lungs. Electronically signed by: Osito Maher MD (07/10/2021 6:38 PM) [id number] Course & Med Decision Making: Course & Med Decision Making Pertinent Labs and Imaging studies reviewed. (See chart for details) 45-year-old female, vital signs reviewed, presents to the emergency department for chronic pain of her abdomen. Patient's physical examination unremarkable, her stated level of pain exceeds patient's physical appearance and examination. During extensive chart review, patient has been seen here several times with diagnosis of chronic abdominal pain. Patient has had concerns for drug-seeking behavior. Will order CT abdomen pelvis, CBC, CMP, urinalysis assay, 1 L normal saline, 30 mg Toradol IV. Patient's serum labs CBC, CMP, lipase, urinalysis assay unremarkable with no acute findings. CT abdomen pelvis without contrast read negative for acute findings per house radiologist hypertension. Discussed findings with patient, patient is asking for stronger pain medication, discussed with patient she needs to follow-up with primary care or pain management for ongoing chronic pain management complications. Patient gave verbal understanding of this. Patient was discharged home without incident. Discussed with the patient all findings and diagnostic testing as well as the need to follow-up with their primary care provider for further evaluation and treatment or return to the ED if any new or worsening symptoms. Strict return precautions were also discussed at length, the patient voiced understanding and agreement with the discharge planning. The patient was nontoxic in appearance, in no apparent distress, and hemodynamically stable at the time of disposition. Dragon Disclaimer: Dragon Disclaimer: This electronic medical record was generated, in whole or in part, using a voice recognition dictation system. Departure Departure Impression: Primary Impression: Chronic abdominal pain Disposition: HOME / SELF CARE / HOMELESS Condition: GOOD Referrals: NO PCP (PCP) MOHAN CAMPBELL MD Patient Instructions: Abdominal Pain Additional Instructions: You were seen today in the emergency department for your chronic abdominal pain. An extensive abdominal examination was performed, there were no acute findings. Please follow-up with your primary care physician for ongoing pain management. I have provided you a gastroenterology specialist Dr. Manzano to fo llow-up with if you wish. You may choose any gastroenterology specialist of your choice. Please continue to use [id number] Tylenol for abdominal pains. Thank you for visiting our Emergency Department. It was a pleasure taking care of you today in the emergency department and we appreciate you trusting us with your care. If any additional problems come up don't hesitate to return to visit us. Please follow up with your primary care provider so they can plan additional care if needed and know about the problem that you had. If symptoms worsen come back to the Emergency Department. Any concerning symptoms that start such as chest pain, shortness of air, weakness or numbness on one dulce e of the body, running high fevers or any other concerning symptoms return to the ER. EMERGENCY DEPARTMENT GENERAL DISCHARGE INSTRUCTIONS Thank you for coming to [facility] Emergency Department (ED) today and trusting us with you care. We trust that you had a positive experience in our Emergency Department. If you wish to speak to the department management, you may call the Director at [phone]. YOUR FOLLOW UP INSTRUCTIONS ARE FOLLOWS: 1. Do you have a private Doctor? If you do not have a private doctor, please ask for a resource list of physicians or clinics that may be able to assist you with follow up care. 2. The Emergency Physicain has interpreted your x-rays. The X-Ray specialist will also review them. If there is a change in the findings, you will be notified in 48 hours when at all possible. 3. A lab test or culture has been done, your results will be reviewed and you will be notified if you need a change in treatment. ADDITIONAL INSTRUCTIONS AND INFORMATION: 1. Your care today has been supervised by a physician who is specially trained in emergency care. Many problems require more than one evaluation for a complete diagnosis and treatment. We recommend that you schedule your follow up appointment as recommended to ensure complete treatment of you illness or injury. If you are unable to obtain follow up care and continue to have a problem, or if your condition worsens, we recommend that you return to the ED. 2. We are not able to safely determine your condition over the phone nor are we able to give sound medical advice over the phone. For these safety reasons, if you call for medical advice we will ask you to come to the ED for further evaluation. 3. If you have any questions regarding these discharge instructions please call the ED at [phone]. SAFETY INFORMATION: In the interest of safety, wellness, and injury prevention; we encourage you to wear your sealbelt, if you smoke; quite smoking, and we encourage family to use a protective helmet for bicycling and other sporting events that present an increased risk for head injury. IF YOUR SYMPTOMS WORSEN OR NEW SYMPTOMS DEVELOP, OR YOU HAVE CONCERNS ABOUT YOUR CONDITION; OR IF YOUR CONDITION WORSENS WHILE YOU ARE WAITING FOR YOUR FOLLOW UP APPOINTMENT; EITHER CONTACT YOUR PRIMARY CARE DOCTOR, THE PHYSICIAN WHOSE NAME AND NUMBER YOU WERE GIVEN, OR RETURN TO THE ED IMMEDIATELY. GREGORIA BURNS APRN Jul 10, 2021 19:11
== END 2021-07-10 19:40 | disposition home or self-care (01) ==
LOC: ER 16:51
DX: R10.9 Unspecified abdominal pain (principal); G89.29 Other chronic pain; J44.9 Chronic obstructive pulmonary disease, unspecified; E78.00 Pure hypercholesterolemia, unspecified; I11.0 Hypertensive heart disease with heart failure; I50.9 Heart failure, unspecified; Z86.718 Personal history of other venous thrombosis and embolism; I25.2 Old myocardial infarction; F17.200 Nicotine dependence, unspecified, uncomplicated; F17.210 Nicotine dependence, cigarettes, uncomplicated; Z88.1 Allergy status to other antibiotic agents; Z88.2 Allergy status to sulfonamides; Z88.0 Allergy status to penicillin; Z91.041 Radiographic dye allergy status; Z88.4 Allergy status to anesthetic agent; Z88.6 Allergy status to analgesic agent; Z88.8 Allergy status to other drugs, medicaments and biological substances
CPT/HCPCS: 36415; 74176; 80053; 81001; 83690; 85025; 87086; 96361; 96374; 96375; 99284; J1885; J2405; J7030

== ENCOUNTER 2021-07-21 21:08 | Emergency (ER) | payer OTHER ==
[~2021-07-21] VITALS: Ht 172.7 cm; Wt 95.4 kg
--- NOTE | 2021-07-21 21:59 | PHYS DOC ---
Past Medical History Past Medical History: CHF, COPD, DVT, High Cholesterol, Hypertension, Kidney Stone, [place], P.U.D., Seizure, UTI, Other Additional Past Medical Histor: LUPUS, PE Past Surgical History: , Hysterectomy Additional Past Surgical Histo: SX TO INTESTINE AND STOMACH Smoking Status: Current Every Day Smoker Alcohol Use: None Drug Use: None General Adult EDM: Chief Complaint: ABDOMINAL PAIN HPI: HPI: 45-year-old female with a history of chronic abdominal pain multiple abdominal surgeries for abdominal perforations according to her presents to the emergency department complaining of abdominal pain for the last month exacerbated in the last several hours. She reports generalized abdominal pain, nonradiating not made better by anything and not made worse of anything. She endorsed some nausea and vomiting with the pain that is nonbilious and nonbloody. The patient denies nausea, vomiting, fever, chills, chest pain, shortness of breath, urinary symptoms, cough, recent trauma, or any other complaints. Review of Systems: Review of Systems: ROS otherwise negative except for what was mentioned in HPI Heart Score: C/O Chest Pain: No Allergies: Allergies: Allergies Coded Allergies Type Severity Reaction Last Updated Verified Iodine and Iodide Containing Produc Allergy Severe throat swelling to IV contrast 04/19/20 Yes sulfamethoxazole Allergy Severe SWELLING,TROUBLE BREATHING 05/27/20 Yes trimethoprim Allergy Severe SWELLING,TROUBLE BREATHING 05/27/20 Yes Cephalexin Monohydrate Allergy Intermediate SWELLING,TROUBLE BREATHING 04/16/20 Yes NSAIDS (Non-Steroidal Anti-Inflamma Allergy Intermediate 03/18/20 Yes Penicillins Allergy Intermediate SWELLING,TROUBLE BREATHING 04/16/20 Yes iodine Allergy Intermediate 03/18/20 Yes lidocaine Allergy Intermediate 03/18/20 Yes prochlorperazine edisylate Allergy Intermediate 03/18/20 Yes prochlorperazine maleate Allergy Intermediate 03/18/20 Yes tramadol Allergy Intermediate RASH/HIVES 05/23/21 Yes Physical Exam: PE: Constitutional: No acute distress, non-toxic appearance. HENT: Atraumatic, bilateral external ears normal, nose normal. Eyes: PERRLA, EOMI, conjunctiva normal, no discharge. Neck: Normal range of motion, supple, no stridor. Cardiovascular: Heart rate regular rhythm. 2+ radial pulses Lungs & Thorax: No respiratory distress, symmetrical expansion. Abdomen: Generalized abdominal tenderness Skin: Warm, dry. Extremities: No tenderness, no cyanosis, ROM intact, no edema. Neurologic: Alert and oriented X 3, normal motor function, normal sensory function, no focal deficits noted. Non ataxic gait. GCS 15. Psychologic: Affect normal, judgment normal, mood normal. Current Patient Data: Labs: Laboratory Tests Test 07/21/21 21:48 07/21/21 23:20 Urine Collection Type Unknown Urine Color Yellow Urine Clarity Clear Urine pH 6.5 (<5.0-8.0) Urine Specific [place] 1.025 (1.000-1.030) Urine Protein Negative mg/dL (NEG-TRACE) Urine Glucose (UA) Negative mg/dL (NEG) Urine Ketones (Stick) Negative mg/dL (NEG) Urine Blood Negative (NEG) Urine Nitrite Negative (NEG) Urine Bilirubin Negative (NEG) Urine Urobilinogen Dipstick 1.0 mg/dL (0.2 mg/dL) Urine Leukocyte Esterase Small (NEG) Urine RBC Occ /HPF (0-2) Urine WBC 1-4 /HPF (0-4) Urine Squamous Epithelial Cells Few /LPF Urine Bacteria 0 /HPF (0-FEW) White Blood Count 8.9 x10^3/uL (4.0-11.0) Red Blood Count 3.36 x10^6/uL (3.50-5.40) Hemoglobin 11.2 g/dL (12.0-15.5) Hematocrit 32.3 % (36.0-47.0) Mean Corpuscular Volume 96 fL (79-100) Mean Corpuscular Hemoglobin 33 pg (25-35) Mean Corpuscular Hemoglobin Concent 35 g/dL (31-37) Red Cell Distribution Width 13.1 % (11.5-14.5) Platelet Count 503 x10^3/uL (140-400) Neutrophils (%) (Auto) 53 % (31-73) Lymphocytes (%) (Auto) 33 % (24-48) Monocytes (%) (Auto) 8 % (0-9) Eosinophils (%) (Auto) 5 % (0-3) Basophils (%) (Auto) 1 % (0-3) Neutrophils # (Auto) 4.7 x10^3/uL (1.8-7.7) Lymphocytes # (Auto) 2.9 x10^3/uL (1.0-4.8) Monocytes # (Auto) 0.7 x10^3/uL (0.0-1.1) Eosinophils # (Auto) 0.4 x10^3/uL (0.0-0.7) Basophils # (Auto) 0.1 x10^3/uL (0.0-0.2) Vital Signs: Vital Signs Date Time Temp Pulse Resp B/P (MAP) Pulse Ox O2 Delivery O2 Flow Rate FiO2 07/21/21 23:17 18 98 07/21/21 21:40 98.6 86 16 108/59 (75) 99 Room Air 98.6 Radiology/Procedures: Radiology/Procedures: PROCEDURE: CT ABDOMEN PELVIS WO CONTRAST Exam: CT of abdomen and pelvis without contrast INDICATION: Abdominal pain TECHNIQUE: Sequential axial images through the abdomen and pelvis obtained without IV contrast. Sagittal and coronal reformatted images were reconstructed from the axial data and reviewed. Exposure: One or more of the following in the visualized dose reduction techniques were utilized for this examination: 1. Automated exposure control 2. Adjustment of the MA and/or KV according to patient size 3. Use of iterative of reconstructive technique Comparisons: 07/10/2021 FINDINGS: Heart size is normal. No pericardial effusion. Visualized lung bases are clear. No pleural effusion. Evaluation of the solid organs limited secondary to noncontrast technique. Liver, spleen, pancreas, and adrenals are unremarkable. Gallbladder surgically absent. No perinephric inflammation or hydronephrosis. No renal or ureteral calculi are identified. Bladder is decompressed not well evaluated. Uterus is absent. No abnormal adnex al mass. Large bowel demonstrate a moderate amount of stool. Appendix is is not definitively identified. Postoperative changes at the stomach are noted. No free intra-abdominal air or fluid. No obstruction. Abdominal aorta has a normal course and caliber. IVC filter is noted. No enlarged intra-abdominal lymph nodes are identified. No suspicious osseous lesions or acute fractures. IMPRESSION: 1. Moderate amount stool in the colon. Correlate for constipation. 2. Otherwise, no acute process identified in the abdomen or pelvis.[] Course & Med Decision Making: Course & Med Decision Making Patient has constipation on her CT scan today, recommended MiraLAX for home. She requested a dose of oxycodone to help her sleep tonight which was provided for her. Upon discharge examination, the patient is clinically improved Departure Departure Impression: Primary Impression: Abdominal pain Disposition: HOME / SELF CARE / HOMELESS Condition: STABLE Referrals: NO PCP (PCP) Patient Instructions: Abdominal Pain Additional Instructions: You were seen in the emergency department for abdominal pain. Your tests did not show any obvious acute cause of your symptoms and your physical exam was non concerning for a dangerous disease process at this time. This however can change early in a disease course. You must return to the ED if you develop any new or worrisome symptoms for another exam. - Make sure to drink plenty of fluids at home - You may take a gentle laxative such as Miralax (over the counter) for bowel comfort. - Avoid drinking alcohol while you are having abdominal pain as this may worsen symptoms. - Return to the ER if you are not able to tolerate water and/or a normal diet, have increased pain or a change in character of your pain, develop a fever (>100.3 F), have nausea, vomiting and/or diarrhea that is unable to be treated at home, pass out, and/or you are not able to perform you normal daily activity. ANTONIO MONCADA DO Jul 21, 2021 21:59
[2021-07-21 22:19] LABS: BILIRUBIN,URINE NEGATIVE (NEG); CLARITY,URINE CLEAR; COLOR,URINE YELLOW; NITRITE,URINE NEGATIVE (NEG); PH,URINE 6.5 (<5.0-8.0); PROTEIN,URINE NEGATIVE (NEG-TRACE)
--- NOTE | 2021-07-21 22:28 | RAD ---
Exam: CT of abdomen and pelvis without contrast INDICATION: Abdominal pain TECHNIQUE: Sequential axial images through the abdomen and pelvis obtained without IV contrast. Sagit solange and coronal reformatted images were reconstructed from the axial data and reviewed. Exposure: One or more of the following in the visualized dose reduction techniques were utilized for this examination: 1. Automated exposure control 2. Adjustment of the MA and/or KV according to patient size 3. Use of iterative of reconstructive technique Comparisons: 07/10/2021 FINDINGS: Heart size is normal. No pericardial effusion. Visualized lung bases are clear. No pleural effusion. Evaluation of the solid organs limited secondary to noncontrast technique. Liver, spleen, pancreas, and adrenals are unremarkable. Gallbladder surgically absent. No perinephric inflammation or hydronephrosis. No renal or ureteral calculi are identified. Bladder is decompressed not well evaluated. Uterus is absent. No abnormal adnexal mass. Large bowel demonstrate a moderate amount of stool. Appendix is is not definitively identified. Posto perative changes at the stomach are noted. No free intra-abdominal air or fluid. No obstruction. Abdominal aorta has a normal course and caliber. IVC filter is noted. No enlarged intra-abdominal lymph nodes are identified. No suspicious osseous lesions or acute fractures. IMPRESSION: 1. Moderate amount stool in the colon. Correlate for constipation. 2. Otherwise, no acute process identified in the abdomen or pelvis. Electronically signed by: Sneha Cameron MD (07/21/2021 10:25 PM) [facility]
[2021-07-21] MEDS ORDERED: FAMOTIDINE 20 MG/2 ML VIAL IVP ONE (22:30)
[2021-07-21] MEDS ORDERED: MORPHINE SULFATE 10 MG/ML VIAL. IV ONE (22:30)
[2021-07-21] MEDS ORDERED: ONDANSETRON PF 4 MG/2 ML VIAL. IVP ONE (22:30)
[2021-07-21] MEDS ORDERED: IV NORMAL SALINE 1000ML BAG 1,000 ML IV SCH (22:30)
[2021-07-21 23:07] LABS: BACTERIA,URINE 0 /HPF (0-FEW); RBC,URINE OCC /HPF (0-2)
[2021-07-21 23:40] LABS: BASO # 0.1 x10^3/uL (0.0-0.2); BASO % 1 % (0-3); EOS # 0.4 x10^3/uL (0.0-0.7); EOS % 5 % (0-3); HEMATOCRIT 32.3 % (36.0-47.0); HEMOGLOBIN 11.2 g/dL (12.0-15.5); LYMPH # 2.9 x10^3/uL (1.0-4.8); LYMPH % 33 % (24-48); MEAN CORPUSCULAR HEMOGLOBIN 33 pg (25-35); MEAN CORPUSCULAR HGB CONC 35 g/dL (31-37); MEAN CORPUSCULAR VOLUME 96 fL (79-100); MONO # 0.7 x10^3/uL (0.0-1.1); MONO % 8 % (0-9); NEUT # 4.7 x10^3/uL (1.8-7.7); NEUT % 53 % (31-73); PLATELET COUNT 503 x10^3/uL (140-400); RED BLOOD COUNT 3.36 x10^6/uL (3.50-5.40); RED CELL DISTRIBUTION WIDTH 13.1 % (11.5-14.5); WHITE BLOOD COUNT 8.9 x10^3/uL (4.0-11.0)
[2021-07-22 00:02] LABS: CALCIUM 8.7 mg/dL (8.5-10.1); CREATININE 0.9 mg/dL (0.6-1.0); GFR 67.7; POTASSIUM 3.9 mmol/L (3.5-5.1)
[2021-07-22 00:08] LABS: ALBUMIN 3.2 g/dL (3.4-5.0); ALBUMIN/GLOBULIN RATIO 0.9 (1.0-1.7); TOTAL BILIRUBIN 0.1 mg/dL (0.2-1.0); TOTAL PROTEIN 6.7 g/dL (6.4-8.2)
[2021-07-22 00:14] VITALS: BP 120/68
[2021-07-22] MEDS ORDERED: oxyCODONE IR 5 MG TABLET PO ONE (00:30)
== END 2021-07-22 00:34 | disposition home or self-care (01) ==
LOC: ER 21:08
DX: R10.84 Generalized abdominal pain (principal); R11.2 Nausea with vomiting, unspecified; G89.29 Other chronic pain; I11.0 Hypertensive heart disease with heart failure; I50.9 Heart failure, unspecified; J44.9 Chronic obstructive pulmonary disease, unspecified; E78.00 Pure hypercholesterolemia, unspecified; Z86.718 Personal history of other venous thrombosis and embolism; I25.2 Old myocardial infarction; F17.200 Nicotine dependence, unspecified, uncomplicated; Z90.710 Acquired absence of both cervix and uterus; Z88.0 Allergy status to penicillin; Z88.4 Allergy status to anesthetic agent; Z88.6 Allergy status to analgesic agent; Z88.1 Allergy status to other antibiotic agents; Z88.2 Allergy status to sulfonamides; Z91.041 Radiographic dye allergy status
CPT/HCPCS: 36415; 74176; 80053; 81001; 83690; 85025; 87086; 96361; 96374; 96375; 99284; J2270; J2405; J3490; J7030

== ENCOUNTER 2021-08-17 15:23 | Emergency (ER) | payer OTHER ==
[~2021-08-17] VITALS: Ht 172.7 cm; Wt 96.3 kg
[~2021-08-17 15:23] MED LIST changes: +CLIN-94 PO; -CLIN300C9 PO
[2021-08-17 15:58] VITALS: BP 100/60
[2021-08-17] MEDS ORDERED: ALBUTEROL SULFATE 2.5 MG/3 ML NEBU. NEB ONE (16:45)
[2021-08-17] MEDS ORDERED: DEXAMETHASONE 4 MG TABLET PO ONE (16:45)
--- NOTE | 2021-08-17 16:48 | EKG ---
[facility] [address] [place] [address] Test Date: 2021-08-17 Test Time: 15:57:58 Pat Name: TRACIE GAONA Department: Room: Gender: F [employer]: : 1975 Requested By: PABLO BOB Order Number: [id number] Reading MD: Cesar Alvarez Measurements Intervals Mart Rate: 106 P: 16 TN: 142 QRS: 14 QRSD: 96 T: 53 QT: 326 QTc: 435 Interpretive Statements SINUS TACHYCARDIA LEFT ATRIAL ABNORMALITY INCOMPLETE RIGHT BUNDLE BRANCH BLOCK Electronically Signed On 08-19-2021 16:47:30 CDT by Cesar Alvarez
--- NOTE | 2021-08-17 16:50 | RAD ---
EXAM: Chest, single view. HISTORY: Shortness of breath. COMPARISON: 10/30/2020 FINDINGS: A frontal view of the chest is obtained. There are chronic appearing interstitial changes. There is no infiltrate, pleural effusion or pneumothorax. The heart is normal in size. IMPRESSION: Chronic appearing interstitial changes. Electronically signed by: Diandra Dumont MD (08/17/2021 4:47 PM) [id number]
[2021-08-17 17:05] LABS: INFLUENZA A PATIENT NEGATIVE (NEGATIVE); INFLUENZA B PATIENT NEGATIVE (NEGATIVE)
[2021-08-17] MEDS ORDERED: PRED-220 PO (17:09)
--- NOTE | 2021-08-17 17:09 | PHYS DOC ---
Past Medical History Past Medical History: CHF, COPD, DVT, High Cholesterol, Hypertension, Kidney Stone, [place], P.U.D., Seizure, UTI, Other Additional Past Medical Histor: LUPUS, PE (PABLO BOB) Past Surgical History: Other Additional Past Surgical Histo: SX TO INTESTINE AND STOMACH (PABLO BOB) Smoking Status: Never Smoker Alcohol Use: None Drug Use: None (PABLO BOB) General Adult EDM: Chief Complaint: COUGH HPI: HPI: Patient is a 45 year old female with history of COPD who presents with increased shortness of breath and cough since yesterday. She reports chest wall pain and inspiratory pain as well as thick mucousy sputum production. She reports she had her second COVID-19 vaccine dose last week. Patient reports she uses 2 L oxygen at night, but has no daily oxygen requirement while ambulating. Patient has no other complaints at this time (PABLO BOB) Review of Systems: Review of Systems: ROS negative except as mentioned in HPI. (PABLO BOB) Heart Score: C/O Chest Pain: N/A (PABLO BOB) Current Medications: Current Medications Medications (Trade) Dose Ordered Sig/Tex Start Time Stop Time Status Last Admin Dose Admin Albuterol Sulfate (Ventolin Neb Soln) 2.5 mg 1X ONCE 08/17/21 16:45 08/17/21 16:46 DC Dexamethasone (Decadron) 10 mg 1X ONCE 08/17/21 16:45 08/17/21 16:46 DC (PABLO BOB) Allergies: Allergies: Allergies Coded Allergies Type Severity Reaction Last Updated Verified Iodine and Iodide Containing Produc Allergy Severe throat swelling to IV contrast 04/19/20 Yes sulfamethoxazole Allergy Severe SWELLING,TROUBLE BREATHING 05/27/20 Yes trimethoprim Allergy Severe SWELLING,TROUBLE BREATHING 05/27/20 Yes Cephalexin Monohydrate Allergy Intermediate SWELLING,TROUBLE BREATHING 04/16/20 Yes NSAIDS (Non-Steroidal Anti-Inflamma Allergy Intermediate 03/18/20 Yes Penicillins Allergy Intermediate SWELLING,TROUBLE BREATHING 04/16/20 Yes iodine Allergy Intermediate 03/18/20 Yes lidocaine Allergy Intermediate 03/18/20 Yes prochlorperazine edisylate Allergy Intermediate 03/18/20 Yes prochlorperazine maleate Allergy Intermediate 03/18/20 Yes tramadol Allergy Intermediate RASH/HIVES 05/23/21 Yes (PABLO BOB) Physical Exam: PE: Constitutional: Patient is tachypneic and facial expression expresses pain. Well developed, well nourished, non-toxic appearance. Neck: Normal range of motion, no tenderness, supple, no stridor. Cardiovascular: Elevated heart rate with regular rhythm, no murmur. Lungs & Thorax: Bilateral breath sounds clear to auscultation without wheezing. Skin: Warm, dry, no erythema, no rash. Psychologic: Affect irritable, fair judgment, mood "unwell." (PABLO BOB) Current Patient Data: Vital Signs: Vital Signs Date Time Temp Pulse Resp B/P (MAP) Pulse Ox O2 Delivery O2 Flow Rate FiO2 08/17/21 15:58 98.2 104 26 100/60 (73) 99 Room Air 98.2 (PABLO BOB) EKG: EKG: EKG Interpreted by Dr. Sandoval: Tachycardic 106 bpm with regular rhythm with no ectopic beats. No concerning ST-T wave changes. Regular QR interval. (PABLO BOB) Radiology/Procedures: Radiology/Procedures: PROCEDURE: PORTABLE CHEST 1V EXAM: Chest, single view. HISTORY: Shortness of breath. COMPARISON: 10/30/2020 FINDINGS: A frontal view of the chest is obtained. There are chronic appearing interstitial changes. There is no infiltrate, pleural effusion or pneumothorax. The heart is normal in size. IMPRESSION: Chronic appearing interstitial changes. Electronically signed by: Diandra Dumont MD (08/17/2021 4:47 PM) [id number] (PABLO BOB) Course & Med Decision Making: Course & Med Decision Making Pertinent Labs and Imaging studies reviewed. (See chart for details) When nursing staff attempted to administer medications and obtain a flu swab from the patient, patient refused. Per nursing staff, she was encouraged to take the treatment. I went in and had a conversation with her regarding the treatment and the possible benefit she may experience and the risks to leaving without treatment. Patient is of sound mind and capable of making her medical decisions. She has decided to leave AMA. (PABLO BOB) Course & Med Decision Making I have reviewed and was available for consultation in the emergency department for this patient that was seen by midlevel provider. Agree with plan. Patient had medical decision making capacity at the time of leaving DAVID Sandoval DO (ANTONIO SANDOVAL DO) Re Disclaimer: Re Disclaimer: This electronic medical record was generated, in whole or in part, using a voice recognition dictation system. (PABLO BOB) Departure Departure Impression: Primary Impression: Shortness of breath after COVID-19 vaccination Additional Impressions: COPD (chronic obstructive pulmonary disease) Qualified Codes: J44.9 - Chronic obstructive pulmonary disease, unspecified Cough Disposition: LEFT AGAINST MEDICAL ADVICE Condition: STABLE Referrals: FRANCY MCALLISTER MD (PCP) Patient Instructions: Chronic Obstructive Pulmonary Disease, Fawj-fy-Hahr Scripts Prednisone (PREDNISONE ) 10 Mg Tablet 10 MG PO UD, #30 TAB 0 Refills Take 5 tablets by mouth daily for 2 days, then take 4 tablets by mouth daily for 2 days, then take 3 tablets by mouth daily for 2 days, then take 2 tablets by mouth daily for 2 days, then take 1 tablets by mouth daily for 2 days, then stop. Prov: PABLO BOB 08/17/21 PABLO BOB Aug 17, 2021 17:09 ANTONIO SANDOVAL DO Aug 20, 2021 06:53
--- NOTE | 2021-08-19 18:18 | NUR ---
IP: Attempted to contact pt concerning covid test. No answer, and voice mailbox is not set up.
== END 2021-08-17 16:58 | disposition left against medical advice (07) ==
LOC: ER 15:23
DX: J44.9 Chronic obstructive pulmonary disease, unspecified (principal); I11.0 Hypertensive heart disease with heart failure; I50.9 Heart failure, unspecified; E78.00 Pure hypercholesterolemia, unspecified; I10 Essential (primary) hypertension; I25.2 Old myocardial infarction; Z20.822 Contact with and (suspected) exposure to COVID-19; Z87.442 Personal history of urinary calculi; Z86.718 Personal history of other venous thrombosis and embolism; Z87.11 Personal history of peptic ulcer disease; Z87.440 Personal history of urinary (tract) infections; Z91.041 Radiographic dye allergy status; Z88.0 Allergy status to penicillin; Z88.8 Allergy status to other drugs, medicaments and biological substances; Z88.6 Allergy status to analgesic agent; Z88.2 Allergy status to sulfonamides
CPT/HCPCS: 71045; 87804; 93005; 99285; U0003; U0005

== ENCOUNTER 2021-09-05 13:59 | Emergency (ER) | payer OTHER ==
[~2021-09-05] VITALS: Ht 172.7 cm; Wt 98.0 kg
[~2021-09-05 13:59] MED LIST changes: +CYCL10TA19 PO; -CYCL10TA2 PO; +PRED-220 PO
[2021-09-05] MEDS ORDERED: ONDANSETRON PF 4 MG/2 ML VIAL. IVP ONE (14:30)
[2021-09-05 14:32] VITALS: BP 122/61
[2021-09-05 15:11] LABS: BASO % 0 % (0-3); EOS # 0.4 x10^3/uL (0.0-0.7); EOS % 4 % (0-3); HEMATOCRIT 34.5 % (36.0-47.0); HEMOGLOBIN 11.8 g/dL (12.0-15.5); LYMPH # 2.9 x10^3/uL (1.0-4.8); LYMPH % 32 % (24-48); MEAN CORPUSCULAR HEMOGLOBIN 33 pg (25-35); MEAN CORPUSCULAR HGB CONC 34 g/dL (31-37); MEAN CORPUSCULAR VOLUME 96 fL (79-100); MONO # 0.8 x10^3/uL (0.0-1.1); MONO % 8 % (0-9); NEUT % 55 % (31-73); PLATELET COUNT 595 x10^3/uL (140-400); RED BLOOD COUNT 3.57 x10^6/uL (3.50-5.40); RED CELL DISTRIBUTION WIDTH 13.4 % (11.5-14.5); WHITE BLOOD COUNT 9.1 x10^3/uL (4.0-11.0)
[2021-09-05 15:20] LABS: CALCIUM 7.9 mg/dL (8.5-10.1); CREATININE 0.9 mg/dL (0.6-1.0); GFR 67.7; POTASSIUM 4.3 mmol/L (3.5-5.1)
[2021-09-05 15:25] LABS: ALBUMIN 3.5 g/dL (3.4-5.0); TOTAL BILIRUBIN 0.1 mg/dL (0.2-1.0); TOTAL PROTEIN 7.1 g/dL (6.4-8.2)
--- NOTE | 2021-09-05 15:50 | PHYS DOC ---
Past Medical History Past Medical History: CHF, COPD, DVT, High Cholesterol, Hypertension, Kidney Stone, [place], P.U.D., Seizure, UTI, Other Additional Past Medical Histor: LUPUS, PE Past Surgical History: Hysterectomy Additional Past Surgical Histo: SX TO INTESTINE AND STOMACH Smoking Status: Never Smoker Alcohol Use: None Drug Use: None General Adult EDM: Chief Complaint: ABDOMINAL PAIN HPI: HPI: Patient is a 45 year old female who present to ER for evaluation of abdominal pain. Patient says she also have dark stool for the last 3 days. Patient has been evaluated here multiple times for her chronic abdominal pain. Patient normally would request pain medication, if she does not drink see pain medication she would sign out again medical advice. Patient is not on any blood thinner, she denies any cough, denies any fever. Review of Systems: Review of Systems: Constitutional: Denies fever or chills. [] Eyes: Denies change in visual acuity. [] HENT: Denies nasal congestion or sore throat. [] Respiratory: Denies cough or shortness of breath. [] Cardiovascular: Denies chest pain or edema. [] GI: Positive for abdominal pain, no nausea vomiting, no diarrhea. Positive for dark stool : Denies dysuria. [] Musculoskeletal: Denies back pain or joint pain. [] Integument: Denies rash. [] Neurologic: Denies headache, focal weakness or sensory changes. [] Endocrine: Denies polyuria or polydipsia. [] Lymphatic: Denies swollen glands. [] Psychiatric: Denies depression or anxiety. [] Heart Score: C/O Chest Pain: N/A Risk Factors: Risk Factors: DM, Current or recent (<one month) smoker, HTN, HLP, family history of CAD, obesity. Risk Scores: Score 0 - 3: 2.5% MACE over next 6 weeks - Discharge Home Score 4 - 6: 20.3% MACE over next 6 weeks - Admit for Clinical Observation Score 7 - 10: 72.7% MACE over next 6 weeks - Early Invasive Strategies Current Medications: Current Medications Medications (Trade) Dose Ordered Sig/Tex Start Time Stop Time Status Last Admin Dose Admin Ondansetron HCl (Zofran) 4 mg 1X ONCE 09/05/21 14:30 09/05/21 14:32 DC 09/05/21 14:30 4 MG Allergies: Allergies: Allergies Coded Allergies Type Severity Reaction Last Updated Verified Iodine and Iodide Containing Produc Allergy Severe throat swelling to IV contrast 04/19/20 Yes sulfamethoxazole Allergy Severe SWELLING,TROUBLE BREATHING 05/27/20 Yes trimethoprim Allergy Severe SWELLING,TROUBLE BREATHING 05/27/20 Yes Cephalexin Monohydrate Allergy Intermediate SWELLING,TROUBLE BREATHING 04/16/20 Yes NSAIDS (Non-Steroidal Anti-Inflamma Allergy Intermediate 03/18/20 Yes Penicillins Allergy Intermediate SWELLING,TROUBLE BREATHING 04/16/20 Yes iodine Allergy Intermediate 03/18/20 Yes lidocaine Allergy Intermediate 03/18/20 Yes prochlorperazine edisylate Allergy Intermediate 03/18/20 Yes prochlorperazine maleate Allergy Intermediate 03/18/20 Yes tramadol Allergy Intermediate RASH/HIVES 05/23/21 Yes Physical Exam: PE: Constitutional: Well developed, well nourished, no acute distress, non-toxic appearance. [] HENT: Normocephalic, atraumatic, bilateral external ears normal, oropharynx moist, no oral exudates, nose normal. [] Eyes: PERRLA, EOMI, conjunctiva normal, no discharge. [] Neck: Normal range of motion, no tenderness, supple, no stridor. [] Cardiovascular:Heart rate regular rhythm, no murmur [] Lungs & Thorax: Bilateral breath sounds clear to auscultation [] Abdomen: Bowel sounds normal, soft, no tenderness, no masses, no pulsatile masses. [] Skin: Warm, dry, no erythema, no rash. [] Back: No tenderness, no CVA tenderness. [] Extremities: No tenderness, no cyanosis, no clubbing, ROM intact, no edema. [] Neurologic: Alert and oriented X 3, normal motor function, normal sensory function, no focal deficits noted. [] Psychologic: Affect normal, judgement normal, mood normal. [] Current Patient Data: Labs: Laboratory Tests Test 09/05/21 14:20 White Blood Count 9.1 x10^3/uL (4.0-11.0) Red Blood Count 3.57 x10^6/uL (3.50-5.40) Hemoglobin 11.8 g/dL (12.0-15.5) L Hematocrit 34.5 % (36.0-47.0) L Mean Corpuscular Volume 96 fL (79-100) Mean Corpuscular Hemoglobin 33 pg (25-35) Mean Corpuscular Hemoglobin Concent 34 g/dL (31-37) Red Cell Distribution Width 13.4 % (11.5-14.5) Platelet Count 595 x10^3/uL (140-400) H Neutrophils (%) (Auto) 55 % (31-73) Lymphocytes (%) (Auto) 32 % (24-48) Monocytes (%) (Auto) 8 % (0-9) Eosinophils (%) (Auto) 4 % (0-3) H Basophils (%) (Auto) 0 % (0-3) Neutrophils # (Auto) 5.0 x10^3/uL (1.8-7.7) Lymphocytes # (Auto) 2.9 x10^3/uL (1.0-4.8) Monocytes # (Auto) 0.8 x10^3/uL (0.0-1.1) Eosinophils # (Auto) 0.4 x10^3/uL (0.0-0.7) Basophils # (Auto) 0.0 x10^3/uL (0.0-0.2) Sodium Level 141 mmol/L (136-145) Potassium Level 4.3 mmol/L (3.5-5.1) Chloride Level 106 mmol/L (98-107) Carbon Dioxide Level 23 mmol/L (21-32) Anion Gap 12 (6-14) Blood Urea Nitrogen 17 mg/dL (7-20) Creatinine 0.9 mg/dL (0.6-1.0) Estimated GFR (Cockcroft-Gault) 67.7 BUN/Creatinine Ratio 19 (6-20) Glucose Level 92 mg/dL (70-99) Calcium Level 7.9 mg/dL (8.5-10.1) L Magnesium Level 2.0 mg/dL (1.8-2.4) Total Bilirubin 0.1 mg/dL (0.2-1.0) L Aspartate Amino Transferase (AST) 5 U/L (15-37) L Alanine Aminotransferase (ALT) 18 U/L (14-59) Alkaline Phosphatase 79 U/L (46-116) Total Protein 7.1 g/dL (6.4-8.2) Albumin 3.5 g/dL (3.4-5.0) Albumin/Globulin Ratio 1.0 (1.0-1.7) Laboratory Tests 09/05/21 14:20 Laboratory Tests 09/05/21 14:20 Vital Signs: Vital Signs Date Time Temp Pulse Resp B/P (MAP) Pulse Ox O2 Delivery O2 Flow Rate FiO2 09/05/21 14:32 98.2 90 20 122/61 (81) Room Air 98.0 98.2 EKG: EKG: [] Radiology/Procedures: Radiology/Procedures: [] Course & Med Decision Making: Course & Med Decision Making Pertinent Labs and Imaging studies reviewed. (See chart for details) Patient is a 45-year-old female who presented to ER due to abdominal pain. Patient also complained of dark stool for the last 3 days, she is not on any blood thinner. Her lab work is reassuring, because of her pain, I recommend that we need to do a CT scan of abdomen pelvis to rule out pathology, patient did not want to stay for CT scan, she signed out against medical advice. Re Disclaimer: Re Disclaimer: This electronic medical record was generated, in whole or in part, using a voice recognition dictation system. Departure Departure Impression: Primary Impression: Chronic abdominal pain Disposition: LEFT AGAINST MEDICAL ADVICE Condition: STABLE Referrals: NO PCP (PCP) Patient Instructions: Discharge Against Medical Advice ALEXEI ODONNELL DO Sep 05, 2021 15:50
== END 2021-09-05 15:55 | disposition left against medical advice (07) ==
LOC: ER 13:59
DX: G89.29 Other chronic pain (principal); R10.9 Unspecified abdominal pain; I11.0 Hypertensive heart disease with heart failure; I50.9 Heart failure, unspecified; J44.9 Chronic obstructive pulmonary disease, unspecified; E78.00 Pure hypercholesterolemia, unspecified; I25.2 Old myocardial infarction; Z86.718 Personal history of other venous thrombosis and embolism; Z90.710 Acquired absence of both cervix and uterus; Z86.711 Personal history of pulmonary embolism; Z91.041 Radiographic dye allergy status; Z88.1 Allergy status to other antibiotic agents; Z88.2 Allergy status to sulfonamides; Z88.0 Allergy status to penicillin; Z88.6 Allergy status to analgesic agent; Z88.4 Allergy status to anesthetic agent; Z88.8 Allergy status to other drugs, medicaments and biological substances
CPT/HCPCS: 36415; 80053; 83735; 85025; 96374; 99283; J2405

== ENCOUNTER 2021-09-17 08:03 | Emergency (ER) | payer OTHER ==
[~2021-09-17] VITALS: Ht 172.7 cm; Wt 97.6 kg
[2021-09-17 08:12] VITALS: BP 152/74
[2021-09-17] MEDS ORDERED: FAMOTIDINE 20 MG/2 ML VIAL IVP ONE (08:30)
[2021-09-17] MEDS ORDERED: PANTOPRAZOLE IV PUSH 40 MG VIAL. IVP ONE (08:30)
[2021-09-17 08:40] LABS: AMPHETAMINE/METHAMPHETAMINE NEG (NEG); BARBITURATES NEG (NEG); BENZODIAZEPINES NEG (NEG); CANNABINOIDS NEG (NEG); COCAINE NEG (NEG); METHADONE NEG (NEG); OPIATES NEG (NEG); PHENCYCLIDINE NEG (NEG)
[2021-09-17] MEDS ORDERED: HYDROmorphone 2 MG/ML VIAL IVP ONE (09:30)
[2021-09-17] MEDS ORDERED: ONDANSETRON PF 4 MG/2 ML VIAL. IVP ONE (09:30)
[2021-09-17 09:33] LABS: BASO # 0.1 x10^3/uL (0.0-0.2); BASO % 1 % (0-3); EOS # 0.4 x10^3/uL (0.0-0.7); EOS % 3 % (0-3); HEMATOCRIT 36.5 % (36.0-47.0); HEMOGLOBIN 12.4 g/dL (12.0-15.5); LYMPH # 2.6 x10^3/uL (1.0-4.8); LYMPH % 20 % (24-48); MEAN CORPUSCULAR HEMOGLOBIN 33 pg (25-35); MEAN CORPUSCULAR HGB CONC 34 g/dL (31-37); MEAN CORPUSCULAR VOLUME 97 fL (79-100); MONO # 1.1 x10^3/uL (0.0-1.1); MONO % 8 % (0-9); NEUT % 69 % (31-73); PLATELET COUNT 572 x10^3/uL (140-400); RED BLOOD COUNT 3.76 x10^6/uL (3.50-5.40); RED CELL DISTRIBUTION WIDTH 13.8 % (11.5-14.5); WHITE BLOOD COUNT 13.1 x10^3/uL (4.0-11.0)
[2021-09-17 09:48] LABS: CALCIUM 9.1 mg/dL (8.5-10.1); CREATININE 0.8 mg/dL (0.6-1.0); GFR 77.6; POTASSIUM 3.9 mmol/L (3.5-5.1)
[2021-09-17 09:53] LABS: PREG TEST PT QUAL NEGATIVE (NEG)
[2021-09-17 09:54] LABS: ALBUMIN 3.8 g/dL (3.4-5.0); TOTAL BILIRUBIN 0.3 mg/dL (0.2-1.0); TOTAL PROTEIN 7.5 g/dL (6.4-8.2)
[2021-09-17 10:02] LABS: PROTHROMBIN TIME PATIENT 13.2 SEC (11.7-14.0)
--- NOTE | 2021-09-17 10:06 | PHYS DOC ---
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 States she saw Dr. Landers this past week for these sxs and he prescribed her Zofran and Percocet. Reports one loose bowel movement yesterday where she passed a large blood clot. No h/o blood transfusions. Review of Systems: Review of Systems: Constitutional: Denies fever or chills. [] Eyes: Denies change in visual acuity. [] HENT: Denies nasal congestion or sore throat. [] Respiratory: Denies cough or shortness of breath. [] Cardiovascular: Denies chest pain or edema. [] GI: Denies vomiting or diarrhea. [] : Denies dysuria or vaginal bleeding Musculoskeletal: Denies back pain or joint pain. [] Integument: Denies rash or diaphoresis Neurologic: Denies headache, focal weakness or sensory changes. [] Endocrine: Denies polyuria or polydipsia. [] Lymphatic: Denies swollen glands. [] Psychiatric: Denies depression or anxiety. [] Heart Score: C/O Chest Pain: No Risk Factors: Risk Factors: DM, Current or recent (<one month) smoker, HTN, HLP, family history of CAD, obesity. Risk Scores: Score 0 - 3: 2.5% MACE over next 6 weeks - Discharge Home Score 4 - 6: 20.3% MACE over next 6 weeks - Admit for Clinical Observation Score 7 - 10: 72.7% MACE over next 6 weeks - Early Invasive Strategies Current Medications: Current Medications Medications (Trade) Dose Ordered Sig/Tex Start Time Stop Time Status Last Admin Dose Admin Famotidine (Pepcid Vial) 20 mg 1X ONCE 09/17/21 08:30 09/17/21 08:31 DC 09/17/21 09:08 20 MG Hydromorphone HCl (Dilaudid) 1 mg 1X ONCE 09/17/21 09:30 09/17/21 09:31 DC 09/17/21 09:40 1 MG Ondansetron HCl (Zofran) 4 mg 1X ONCE 09/17/21 09:30 09/17/21 09:31 DC 09/17/21 09:39 4 MG Pantoprazole Sodium (PROTONIX VIAL for IV PUSH) 40 mg 1X ONCE 09/17/21 08:30 09/17/21 08:31 DC 09/17/21 09:08 40 MG Allergies: Allergies: Allergies Coded Allergies Type Severity Reaction Last Updated Verified Iodine and Iodide Containing Produc Allergy Severe throat swelling to IV contrast 04/19/20 Yes sulfamethoxazole Allergy Severe SWELLING,TROUBLE BREATHING 05/27/20 Yes trimethoprim Allergy Severe SWELLING,TROUBLE BREATHING 05/27/20 Yes Cephalexin Monohydrate Allergy Intermediate SWELLING,TROUBLE BREATHING 04/16/20 Yes NSAIDS (Non-Steroidal Anti-Inflamma Allergy Intermediate 03/18/20 Yes Penicillins Allergy Intermediate SWELLING,TROUBLE BREATHING 04/16/20 Yes iodine Allergy Intermediate 03/18/20 Yes lidocaine Allergy Intermediate 03/18/20 Yes prochlorperazine edisylate Allergy Intermediate 03/18/20 Yes prochlorperazine maleate Allergy Intermediate 03/18/20 Yes tramadol Allergy Intermediate RASH/HIVES 05/23/21 Yes Physical Exam: PE: Constitutional: Well developed, well nourished, no acute distress, non-toxic appearance. HENT: Normocephalic, atraumatic, Eyes: EOMI, conjunctiva normal, no discharge. Neck: Normal range of motion, supple, Cardiovascular: S1/2 present, regular rhythm Lungs & Thorax: Speaking in full sentences, bilateral equal chest rise, no tachypnea or increased work of breathing Abdomen: soft, upper abdominal tenderness, no rigidity or guarding Skin: Warm, dry, no erythema, no rash. [] Back: No tenderness, no CVA tenderness. [] Extremities: No tenderness, no cyanosis, no lower extremity edema Neurologic: Alert and oriented X 3, normal motor function, normal sensory function, no focal deficits noted. [] Psychologic: Affect normal, judgement normal, mood normal. [] : Normal external rectum with no fissures or bright red blood, empty rectum with no stool, no melena or hematochezia, clear digital rectal exam Current Patient Data: Labs: Laboratory Tests Test 09/17/21 07:45 09/17/21 08:10 09/17/21 08:14 White Blood Count 13.1 x10^3/uL (4.0-11.0) H Red Blood Count 3.76 x10^6/uL (3.50-5.40) Hemoglobin 12.4 g/dL (12.0-15.5) Hematocrit 36.5 % (36.0-47.0) Mean Corpuscular Volume 97 fL (79-100) Mean Corpuscular Hemoglobin 33 pg (25-35) Mean Corpuscular Hemoglobin Concent 34 g/dL (31-37) Red Cell Distribution Width 13.8 % (11.5-14.5) Platelet Count 572 x10^3/uL (140-400) H Neutrophils (%) (Auto) 69 % (31-73) Lymphocytes (%) (Auto) 20 % (24-48) L Monocytes (%) (Auto) 8 % (0-9) Eosinophils (%) (Auto) 3 % (0-3) Basophils (%) (Auto) 1 % (0-3) Neutrophils # (Auto) 9.0 x10^3/uL (1.8-7.7) H Lymphocytes # (Auto) 2.6 x10^3/uL (1.0-4.8) Monocytes # (Auto) 1.1 x10^3/uL (0.0-1.1) Eosinophils # (Auto) 0.4 x10^3/uL (0.0-0.7) Basophils # (Auto) 0.1 x10^3/uL (0.0-0.2) Sodium Level 136 mmol/L (136-145) Potassium Level 3.9 mmol/L (3.5-5.1) Chloride Level 104 mmol/L (98-107) Carbon Dioxide Level 20 mmol/L (21-32) L Anion Gap 12 (6-14) Blood Urea Nitrogen 12 mg/dL (7-20) Creatinine 0.8 mg/dL (0.6-1.0) Estimated GFR (Cockcroft-Gault) 77.6 BUN/Creatinine Ratio 15 (6-20) Glucose Level 91 mg/dL (70-99) Calcium Level 9.1 mg/dL (8.5-10.1) Magnesium Level 1.8 mg/dL (1.8-2.4) Total Bilirubin 0.3 mg/dL (0.2-1.0) Aspartate Amino Transferase (AST) 9 U/L (15-37) L Alanine Aminotransferase (ALT) 28 U/L (14-59) Alkaline Phosphatase 127 U/L (46-116) H Creatine Kinase 37 U/L (26-192) Troponin I High Sensitivity 6 ng/L (4-50) Total Protein 7.5 g/dL (6.4-8.2) Albumin 3.8 g/dL (3.4-5.0) Albumin/Globulin Ratio 1.0 (1.0-1.7) Lipase 44 U/L (73-393) L Serum Test, Qualitative Negative (NEG) Urine Opiates Screen Neg (NEG) Urine Methadone Screen Neg (NEG) Urine Barbiturates Neg (NEG) Urine Phencyclidine Screen Neg (NEG) Urine Amphetamine/Methamphetamine Neg (NEG) Urine Benzodiazepines Screen Neg (NEG) Urine Cocaine Screen Neg (NEG) Urine Cannabinoids Screen Neg (NEG) Urine Ethyl Alcohol Neg (NEG) POC Urine HCG, Qualitative Hcg negative (Negative) Laboratory Tests 09/17/21 07:45 Laboratory Tests 09/17/21 07:45 Vital Signs: Vital Signs Date Time Temp Pulse Resp B/P (MAP) Pulse Ox O2 Delivery O2 Flow Rate FiO2 09/17/21 09:40 100 Room Air 09/17/21 08:12 98.4 92 26 152/74 (100) 98.4 EKG: EKG: Sinus rhythm 76 bpm, left axis deviation, normal intervals, incomplete rbbb, T wave inversion V2 through V6 (new from 11/2020 ekf), no ST elevation or ST depression Radiology/Procedures: Radiology/Procedures: []IMAGING REPORT Signed PATIENT: TRACIE GAONA SACCOUNT: [id number] : 1975 LOCATION: ER AGE: 45 SEX: F EXAM STATUS: REG ER ORD. PHYSICIAN: BUZZ QUINTANA DO REASON: upper abd pain PROCEDURE: CT ABDOMEN PELVIS WO CONTRAST EXAMINATION: CT abdomen and pelvis without IV contrast. INDICATION:45 years, Female, upper abdominal pain. TECHNIQUE: Axial CT images of the abdomen and pelvis were obtained. Coronal and sagittal reformatted performed. COMPARISON: 07/21/2021. Exposure: One or more of the following individualized dose reduction techniques were utilized for this examination: 1. Automated exposure control 2. Adjustment of the mA and/or kV according to patient size 3. Use of iterative reconstruction technique. FINDINGS: LOWER CHEST: Mosaic attenuations in both lung bases. ABDOMEN/PELVIS: Within the limitation of noncontrast exam. Liver, spleen, pancreas, and biliary ducts are unremarkable. Cholecystectomy. Unchanged 1.4 cm left adrenal nodule since multiple prior exam, likely representing benign adenoma. Right adrenal gland is unremarkable. No hydronephrosis in either kidney. There are 2 punctate nonobstructing left nephrolithiasis measuring up to 2 mm. Resolution of previously seen no nobstructing right nephrolithiasis. Post Lex-en-Y gastric bypass changes. No bowel obstruction. Appendix is not seen with certainty. Normal caliber abdominal aorta. IVC filter is in place. No pneumoperitoneum or ascites. No lymphadenopathy in the abdomen or pelvis by size criteria. Unchanged nonspecific nonenlarged mesenteric lymph nodes. Unremarkable urinary bladder. Hysterectomy changes. MUSCULOSKELETAL STRUCTURES: No acute osseous process. Postsurgical changes along the anterior abdominal wall. IMPRESSION: 1. No acute intra-abdominal findings. 2. Resolution right and decreasing burden left nonobstructing nephrolithiasis. 3. Post Lex-en-Y gastric bypass. No bowel obstruction. 4. Mosaic attenuations in both lung bases, likely reflecting air trapping. Electronically signed by: Nimisha Ashford MD (09/17/2021 10:05 AM) [id number] DICTATED and SIGNED BY: NIMISHA ASHFORD MD DATE: 09/17/21 [id number] 0 Course & Med Decision Making: Course & Med Decision Making Pertinent Labs and Imaging studies reviewed. (See chart for details) On reevaluation patient resting comfortably, no active nausea and vomiting in the ED. Rectal exam with no signs of rectal bleeding. Patient hemodynamically stable. No acute findings on CT imaging. Symptoms been present for 1 week. Will discharge home with strict ED return precautions were given for worsening abdominal pain, bloody stools, melena, shortness of breath or syncope. Encouraged urgent outpatient follow-up with PMD for routine care, general surgery Dr. Landers for chronic abdominal pain and pain management. Life- threatening processes were considered but are low suspicion at this time, given history, physical exam and ED workup. Pt was educated on all prescription medications and adverse effects. All patient's questions were answered and pt was stable at time of discharge. Life/limb-threatening differential includes but is not limited to, aortic dissection, aortic aneurysm, acute coronary syndrome, surgical abdomen (appendicitis, cholecystitis, ischemic bowel, strangulated hernia, etc), bowel obstruction or volvulus, bladder outlet obstruction, gastrointestinal bleeding, inflammatory bowel disease, peptic ulcer disease, ACS/CAD, sepsis, diverticular disease, ureterolithiasis, nephrolithiasis, ovarian or testicular torsion, ectopic , vaginal hemorrhage, or genitourinary infection. I have spoken with the patient and/or caregivers. I explained the patient's condition, diagnoses and treatment plan based on the information available to me at this time. I have answered the patient and/or caregiver's questions and addressed any concerns. The patient and/or caregivers have a good understanding of patient's diagnosis, condition and treatment plan as can be expected at this point. Vital signs have been stable. Patient's condition is stable and appropriate for discharge from the emergency department. Patient will pursue further outpatient evaluation with primary care physician or other designated or consulting physician as outlined in the discharge instructions. The patient and/or caregivers are agreeable to this plan of care and follow-up instructions have been explained in detail. The patient and/or caregivers have received these instructions in written form and have expressed an understanding of the discharge instructions. The patient and/or caregivers are aware that any significant change of condition or worsening of symptoms should prompt immediate return to this or the closest emergency department or call to 911. Re Disclaimer: Re Disclaimer: This electronic medical record was generated, in whole or in part, using a voice recognition dictation system. Departure Departure Impression: Primary Impression: Chronic abdominal pain Additional Impression: Nausea Disposition: HOME / SELF CARE / HOMELESS Condition: STABLE Referrals: NO PCP (PCP) Follow-up with your primary care physician in 24 to 48 hours OR FOLLOW UP WITH FAMILY MEDICINE: [address] [facility] [address] [place] [address] Patient Instructions: Abdominal Pain, Nausea, Adult Additional Instructions: FOLLOW UP WITH SURGERY: FOR DEFINITIVE MANAGEMENT of chronic abdominal pain [facility] Address: [address], [address] [place] [address] FOLLOW UP WITH PAIN MANAGEMENT: FOR DEFINITIVE MANAGEMENT of chronic pain [facility] [address] [place] [address] EMERGENCY DEPARTMENT GENERAL DISCHARGE INSTRUCTIONS Thank you for coming to [facility] Emergency Department (ED) today and trusting us with you care. We trust that you had a positive experience in our Emergency Department. If you wish to speak to the department management, you may call the Director at [phone]. YOUR FOLLOW UP INSTRUCTIONS ARE FOLLOWS: 1. Do you have a private Doctor? If you do not have a private doctor, please ask for a resource list of physicians or clinics that may be able to assist you with follow up care. 2. The Emergency Physicain has interpreted your x-rays. The X-Ray specialist will also review them. If there is a change in the findings, you will be notified in 48 hours when at all possible. 3. A lab test or culture has been done, your results will be reviewed and you will be notified if you need a change in treatment. ADDITIONAL INSTRUCTIONS AND INFORMATION: 1. Your care today has been supervised by a physician who is specially trained in emergency care. Many problems require more than one evaluation for a complete diagnosis and treatment. We recommend that you schedule your follow up appointment as recommended to ensure complete treatment of you illness or injury. If you are unable to obtain follow up care and continue to have a problem, or if your condition worsens, we recommend that you return to the ED. 2. We are not able to safely determine your condition over the phone nor are we able to give sound medical advice over the phone. For these safety reasons, if you call for medical advice we will ask you to come to the ED for further evaluation. 3. If you have any questions regarding these discharge instructions please call the ED at [phone]. SAFETY INFORMATION: In the interest of safety, wellness, and injury prevention; we encourage you to wear your sealbelt, if you smoke; quite smoking, and we encourage family to use a protecti ve helmet for bicycling and other sporting events that present an increased risk for head injury. IF YOUR SYMPTOMS WORSEN OR NEW SYMPTOMS DEVELOP, OR YOU HAVE CONCERNS ABOUT YOUR CONDITION; OR IF YOUR CONDITION WORSENS WHILE YOU ARE WAITING FOR YOUR FOLLOW UP APPOINTMENT; EITHER CONTACT YOUR PRIMARY CARE DOCTOR, THE PHYSICIAN WHOSE NAME AND NUMBER YOU WERE GIVEN, OR RETURN TO THE ED IMMEDIATELY. [facility] DO Sep 17, 2021 10:06
--- NOTE | 2021-09-17 10:08 | RAD ---
EXAMINATION: CT abdomen and pelvis without IV contrast. INDICATION:45 years, Female, upper abdominal pain. TECHNIQUE: Axial CT images of the abdomen and pelvis were obtained. Coronal and sagittal reformatted performed. COMPARISON: 07/21/2021. Exposure: One or more of the following individualized dose reduction techniques were utilized for thi s examination: 1. Automated exposure control 2. Adjustment of the mA and/or kV according to patient size 3. Use of iterative reconstruction technique. FINDINGS: LOWER CHEST: Mosaic attenuations in both lung bases. ABDOMEN/PELVIS: Within the limitation of noncontrast exam. Liver, spleen, pancreas, and biliary ducts are unremarkable. Cholecystectomy. Unchanged 1.4 cm left a drenal nodule since multiple prior exam, likely representing benign adenoma. Right adrenal gland is u nremarkable. No hydronephrosis in either kidney. There are 2 punctate nonobstructing left nephrolithi asis measuring up to 2 mm. Resolution of previously seen nonobstructing right nephrolithiasis. Post Lex-en-Y gastric bypass changes. No bowel obstruction. Appendix is not seen with certainty. Nor mal caliber abdominal aorta. IVC filter is in place. No pneumoperitoneum or ascites. No lymphadenopat hy in the abdomen or pelvis by size criteria. Unchanged nonspecific nonenlarged mesenteric lymph node s. Unremarkable urinary bladder. Hysterectomy changes. MUSCULOSKELETAL STRUCTURES: No acute osseous process. Postsurgical changes along the anterior abdominal wall. IMPRESSION: 1. No acute intra-abdominal findings. 2. Resolution right and decreasing burden left nonobstructing nephrolithiasis. 3. Post Lex-en-Y gastric bypass. No bowel obstruction. 4. Mosaic attenuations in both lung bases, likely reflecting air trapping. Electronically signed by: Kyler Ashford MD (09/17/2021 10:05 AM) [id number]
[2021-09-17 10:32] LABS: BILIRUBIN,URINE NEGATIVE (NEG); CLARITY,URINE CLEAR; COLOR,URINE YELLOW; NITRITE,URINE NEGATIVE (NEG); PH,URINE 5.5 (<5.0-8.0); PROTEIN,URINE NEGATIVE (NEG-TRACE); UROBILINOGEN,URINE 0.2 mg/dL (0.2 mg/dL)
[2021-09-17] MEDS ORDERED: ACETAMINOPHEN 500 MG TABLET PO ONE (10:45)
[2021-09-17 10:59] LABS: BACTERIA,URINE 0 /HPF (0-FEW); RBC,URINE 0 /HPF (0-2)
--- NOTE | 2021-09-19 16:14 | EKG ---
[facility] [address] [place] [address] Test Date: 2021-09-17 Test Time: 09:31:35 Pat Name: TRACIE GAONA Department: Room: Gender: F Contracts Representative: [id number] : 1975 Requested By: BUZZ QUINTANA Order Number: [id number] Reading MD: Mauricio Shafer MD Measurements Intervals [place] Rate: 76 P: -31 DC: 146 QRS: -1 QRSD: 96 T: 39 QT: 392 QTc: 445 Interpretive Statements SINUS RHYTHM RBBB NON-SPECIFIC ST/T CHANGES Electronically Signed On 09-23-2021 14:15:20 COMPUTER SYSTEMS MANAGER by Mauricio Shafer MD
== END 2021-09-17 10:45 | disposition home or self-care (01) ==
LOC: ER 08:03
DX: R10.11 Right upper quadrant pain (principal); G89.29 Other chronic pain; R11.0 Nausea; I11.0 Hypertensive heart disease with heart failure; I50.9 Heart failure, unspecified; J44.9 Chronic obstructive pulmonary disease, unspecified; E78.00 Pure hypercholesterolemia, unspecified; I25.2 Old myocardial infarction; Z90.710 Acquired absence of both cervix and uterus; Z86.718 Personal history of other venous thrombosis and embolism; Z91.041 Radiographic dye allergy status; Z88.2 Allergy status to sulfonamides; Z88.1 Allergy status to other antibiotic agents; Z88.0 Allergy status to penicillin; Z88.4 Allergy status to anesthetic agent; Z88.6 Allergy status to analgesic agent; Z88.8 Allergy status to other drugs, medicaments and biological substances
CPT/HCPCS: 36415; 74176; 80053; 80307; 81001; 81025; 82550; 83690; 83735; 84484; 84703; 85025; 85610; 85730; 93005; 96374; 96375; 99285; C9113; J1170; J2405; J3490; 99284

== ENCOUNTER 2022-01-07 00:21 | Emergency (ER) | payer OTHER ==
[~2022-01-07] VITALS: Ht 172.7 cm; Wt 99.6 kg
[~2022-01-07 00:21] MED LIST changes: -LURA40TA PO; +LURA40TA2 PO
--- NOTE | 2022-01-07 00:27 | PHYS DOC ---
Past Medical History Past Medical History: CHF, COPD, DVT, High Cholesterol, Hypertension, Kidney Stone, [place], P.U.D., Seizure, UTI, Other Additional Past Medical Histor: LUPUS, PE Past Surgical History: Hysterectomy Additional Past Surgical Histo: SX TO INTESTINE AND STOMACH Smoking Status: Never Smoker Alcohol Use: None Drug Use: None General Adult EDM: Chief Complaint: ABDOMINAL PAIN HPI: HPI: Patient is a 46 year old female who presents with right flank pain, rating down to her right groin. Symptoms began several days ago. She reports that she thinks she passed a stone last week. She has a history of kidney stones, and she sees a urologist at [facility]. She reportedly has upcoming appointment with them. She reports that she saw blood in her urine a few days ago, though none today. She denies dysuria, frequency, urgency. She denies vomiting, she does report nausea. She denies constipation or diarrhea. She denies rash of her flank or abdomen. She denies any fall, trauma or injury. Review of Systems: Review of Systems: Constitutional: Denies fever or chills. [] Respiratory: Denies cough or shortness of breath. [] Cardiovascular: Denies chest pain or edema. [] GI: Right flank pain, right lower abdominal pain. Nausea, no vomiting. Denies constipation or diarrhea. : Denies dysuria, urgency, frequency. Denies vaginal bleeding. She reports one episode of what she believes was gross hematuria a few days ago, none today. Musculoskeletal: Right flank pain. No midline back pain or joint pain. Integument: Denies rash. [] Neurologic: Denies headache, focal weakness or sensory changes. [] Psychiatric: Anxiety Heart Score: C/O Chest Pain: No Risk Factors: Risk Factors: DM, Current or recent (<one month) smoker, HTN, HLP, family history of CAD, obesity. Risk Scores: Score 0 - 3: 2.5% MACE over next 6 weeks - Discharge Home Score 4 - 6: 20.3% MACE over next 6 weeks - Admit for Clinical Observation Score 7 - 10: 72.7% MACE over next 6 weeks - Early Invasive Strategies Allergies: Allergies: Allergies Coded Allergies Type Severity Reaction Last Updated Verified Iodine and Iodide Containing Produc Allergy Severe throat swelling to IV contrast 04/19/20 Yes sulfamethoxazole Allergy Severe SWELLING,TROUBLE BREATHING 05/27/20 Yes trimethoprim Allergy Severe SWELLING,TROUBLE BREATHING 05/27/20 Yes Cephalexin Monohydrate Allergy Intermediate SWELLING,TROUBLE BREATHING 04/16/20 Yes NSAIDS (Non-Steroidal Anti-Inflamma Allergy Intermediate 03/18/20 Yes Penicillins Allergy Intermediate SWELLING,TROUBLE BREATHING 04/16/20 Yes iodine Allergy Intermediate 03/18/20 Yes lidocaine Allergy Intermediate 03/18/20 Yes prochlorperazine edisylate Allergy Intermediate 03/18/20 Yes prochlorperazine maleate Allergy Intermediate 03/18/20 Yes tramadol Allergy Intermediate RASH/HIVES 05/23/21 Yes Physical Exam: PE: Constitutional: Well developed, well nourished, no acute distress, non-toxic appearance. [] HENT: Normocephalic, atraumatic Eyes: Conjunctiva normal, no discharge. [] Neck: Normal range of motion, no tenderness, supple, no stridor. [] Cardiovascular:Heart rate regular rhythm, +2 radial and +2 posterior tibial pulses bilaterally Lungs & Thorax: Bilateral breath sounds clear to auscultation, no rales, rhonchi or wheezes Abdomen: Abdomen is soft, obese, nondistended, nontender to palpation. Mild right CVA tenderness. No flank or abdominal ecchymoses. Multiple well-healed scars on her abdominal wall. Normal bowel sounds. No palpable masses organomegaly. Skin: Warm, dry, no erythema, no rash. [] Back: No tenderness, no CVA tenderness. [] Extremities: No tenderness, no cyanosis, no clubbing, ROM intact, no edema. No calf tenderness. Neurologic: Alert and oriented X 3, normal motor function, normal sensory function, no focal deficits noted. [] Psychologic: Anxious EKG: EKG: [] Radiology/Procedures: Radiology/Procedures: IMAGING REPORT Signed PATIENT: TRACIE GAONA SACCOUNT: [id number] : 1975 LOCATION: ER AGE: 46 SEX: F EXAM STATUS: REG ER ORD. PHYSICIAN: BONNIE MURILLO DO REASON: right flank pain, hx of kidney stones PROCEDURE: CT ABDOMEN PELVIS WO CONTRAST Exam: CT abdomen/pelvis without intravenous contrast Indication: Right flank pain, history of kidney stones Comparison: CT abdomen pelvis 09/17/2021 Technique: Helical CT imaging performed of the abdomen and pelvis without the use of intravenous contrast. Sagittal and coronal reformats were obtained. One or more of the following individualized dose reduction techniques were utilized for this examination: 1. Automated exposure control 2. Adjustment of the mA and/or kV according to patient size 3. Use of iterative reconstruction technique. Findings: Inherently limited evaluation without intravenous contrast. Lower chest: Unchanged atelectasis or scarring in the right middle lobe. Unchanged mosaic attenuation in the lung bases, nonspecific but can be seen with air trapping. The heart is normal in size. Liver: Normal. Gallbladder/Biliary Tree: The gallbladder is surgically absent. Bile ducts are normal. Pancreas: Normal. Spleen: Normal. Adrenal Glands: There is a 1.4 cm left adrenal adenoma. The right adrenal gland is normal. Kidneys/Ureters/Bladder: Kidneys are normal in size. There is a punctate calculus in the left kidney. No right nephrolithiasis. No hydronephrosis. Ureters are normal. The bladder is decompressed, limiting evaluation. Reproductive Organs: The uterus is surgically absent. No adnexal mass. Stomach, small bowel, and colon: There are surgical changes of distal gastrectomy. No small bowel obstruction. The colon is normal. The appendix is not clearly seen. Vasculature: Abdominal aorta is normal in caliber. No vascular calcifications. An IVC filter is in place with tip below the renal veins and tines extending through the wall of the IVC, unchanged. Lymph Nodes: Multiple prominent lymph nodes in the right lower quadrant, unchanged. Peritoneum and retroperitoneum: No free fluid or free air. Bones: No acute osseous abnormality. Miscellaneous: None IMPRESSION: 1. No right nephrolithiasis or hydronephrosis. Nonobstructing punctate left nephrolithiasis. 2. Surgical changes of distal gastrectomy. No evidence of bowel obstruction 3. Unchanged mosaic attenuation in the lung bases, nonspecific but can be seen with air trapping. 4. IVC filter present: A retrievable IVC filter is noted, and the referring physician is encouraged to ensure that a management plan for this filter is in place. If no such plan is present, referral to an interventional clinician on a non-emergent basis should be considered. The [employer] appropriateness criteria for placement and management of IVC filters can be found on the web at: www.acr.org/quality-safety/appropriateness-criteria/interventional Electronically signed by: Loren Castillo MD (01/07/2022 1:47 AM) [facility] DICTATED and SIGNED BY: LOREN CASTILLO MD DATE: 01/07/22 [id number] 0 Course & Med Decision Making: Course & Med Decision Making Pertinent Labs and Imaging studies reviewed. (See chart for details) The patient is given IV fluids, IV morphine and IV Zofran. I discussed the findings, differential diagnosis and plan of care with her. No CT findings of any acute process, no evidence of hydronephrosis or ureteral stone. UA appears contaminated, she denies urinary symptoms. Musculoskeletal etiology may be causing her pain. She is given a dose of oral Flexeril. I discussed my recommendation for outpatient follow-up with her primary care physician. She may continue [id number] Tylenol, she is prescribed Zofran and Flexeril for discharge. There is no current indication for further invasive exams or imaging at this time. Return precautions are given. Dragon Disclaimer: Re Disclaimer: This electronic medical record was generated, in whole or in part, using a voice recognition dictation system. Departure Departure Impression: Primary Impression: Right flank pain Additional Impression: Nausea Disposition: 01 HOME / SELF CARE / HOMELESS Condition: STABLE Referrals: NO PCP (PCP) Patient Instructions: Flank Pain Additional Instructions: Return to the ER for temperature 100.4 or higher, if you develop more severe pain, if you are acutely injured or sustained any trauma, if you develop uncontrolled vomiting, dehydration or other concerns. Please keep your schedule appointments with your primary care doctor and urologist. Use the medicine as needed/as directed. Scripts Cyclobenzaprine Hcl (CYCLOBENZAPRINE HCL) 10 Mg Tablet 1 TAB PO BID for pain or muscle spasm, #14 TAB Prov: BONNIE MURILLO DO 01/07/22 Ondansetron Hcl (ONDANSETRON HCL) 4 Mg Tablet 1 TAB PO PRN Q8HRS PRN for VOMITING, #20 TAB 1 Refill Prov: BONNIE MURILLO DO 01/07/22 BONNIE MURILLO DO Jan 07, 2022 00:27
[2022-01-07 00:44] LABS: CLARITY,URINE CLEAR; COLOR,URINE YELLOW
[2022-01-07 00:47] LABS: BACTERIA,URINE 0 /HPF (0-FEW); BILIRUBIN,URINE NEGATIVE (NEG); NITRITE,URINE NEGATIVE (NEG); PROTEIN,URINE NEGATIVE (NEG-TRACE); RBC,URINE 0 /HPF (0-2); UROBILINOGEN,URINE 0.2 mg/dL (0.2 mg/dL)
[2022-01-07] MEDS ORDERED: ONDANSETRON PF 4 MG/2 ML VIAL. IVP ONE (01:00)
[2022-01-07] MEDS ORDERED: MORPHINE SULFATE 4 MG/ML INJ. IVP ONE (01:00)
[2022-01-07] MEDS ORDERED: IV NORMAL SALINE 1000ML BAG 1,000 ML IV ONE (01:00)
[2022-01-07 01:46] LABS: BASO % 0 % (0-3); EOS # 0.4 x10^3/uL (0.0-0.7); EOS % 4 % (0-3); HEMOGLOBIN 10.5 g/dL (12.0-15.5); LYMPH # 4.7 x10^3/uL (1.0-4.8); LYMPH % 46 % (24-48); MEAN CORPUSCULAR HEMOGLOBIN 31 pg (25-35); MEAN CORPUSCULAR HGB CONC 33 g/dL (31-37); MEAN CORPUSCULAR VOLUME 93 fL (79-100); MONO # 0.9 x10^3/uL (0.0-1.1); MONO % 8 % (0-9); NEUT # 4.2 x10^3/uL (1.8-7.7); NEUT % 41 % (31-73); PLATELET COUNT 474 x10^3/uL (140-400); RED BLOOD COUNT 3.45 x10^6/uL (3.50-5.40); RED CELL DISTRIBUTION WIDTH 14.4 % (11.5-14.5); WHITE BLOOD COUNT 10.3 x10^3/uL (4.0-11.0)
--- NOTE | 2022-01-07 01:49 | RAD ---
Exam: CT abdomen/pelvis without intravenous contrast Indication: Right flank pain, history of kidney stones Comparison: CT abdomen pelvis 09/17/2021 Technique: Helical CT imaging performed of the abdomen and pelvis without the use of intravenous cont rast. Sagittal and coronal reformats were obtained. One or more of the following individualized dose reduction techniques were utilized for this examinat ion: 1. Automated exposure control 2. Adjustment of the mA and/or kV according to patient size 3. Use of iterative reconstruction technique. Findings: Inherently limited evaluation without intravenous contrast. Lower chest: Unchanged atelectasis or scarring in the right middle lobe. Unchanged mosaic attenuation in the lung bases, nonspecific but can be seen with air trapping. The heart is normal in size. Liver: Normal. Gallbladder/Biliary Tree: The gallbladder is surgically absent. Bile ducts are normal. Pancreas: Normal. Spleen: Normal. Adrenal Glands: There is a 1.4 cm left adrenal adenoma. The right adrenal gland is normal. Kidneys/Ureters/Bladder: Kidneys are normal in size. There is a punctate calculus in the left kidney. No right nephrolithiasis. No hydronephrosis. Ureters are normal. The bladder is decompressed, limiti ng evaluation. Reproductive Organs: The uterus is surgically absent. No adnexal mass. Stomach, small bowel, and colon: There are surgical changes of distal gastrectomy. No small bowel obs truction. The colon is normal. The appendix is not clearly seen. Vasculature: Abdominal aorta is normal in caliber. No vascular calcifications. An IVC filter is in pl lazaro with tip below the renal veins and tines extending through the wall of the IVC, unchanged. Lymph Nodes: Multiple prominent lymph nodes in the right lower quadrant, unchanged. Peritoneum and retroperitoneum: No free fluid or free air. Bones: No acute osseous abnormality. Miscellaneous: None IMPRESSION: 1. No right nephrolithiasis or hydronephrosis. Nonobstructing punctate left nephrolithiasis. 2. Surgical changes of distal gastrectomy. No evidence of bowel obstruction 3. Unchanged mosaic attenuation in the lung bases, nonspecific but can be seen with air trapping. 4. IVC filter present: A retrievable IVC filter is noted, and the referring physician is encouraged to ensure that a managem ent plan for this filter is in place. If no such plan is present, referral to an interventional clini kaye on a non-emergent basis should be considered. The [employer] appropriateness criteria for placement and management of IVC filters can be found on the web at: www.acr.org/quality-safety/appropriateness-criteria/interventional Electronically signed by: Loren Castillo MD (01/07/2022 1:47 AM) MARYANNE
[2022-01-07 02:00] LABS: CALCIUM 7.9 mg/dL (8.5-10.1); CREATININE 0.9 mg/dL (0.6-1.0); GFR 67.4; POTASSIUM 3.9 mmol/L (3.5-5.1)
[2022-01-07 02:08] LABS: ALBUMIN 3.4 g/dL (3.4-5.0); ALBUMIN/GLOBULIN RATIO 1.1 (1.0-1.7); TOTAL BILIRUBIN 0.2 mg/dL (0.2-1.0); TOTAL PROTEIN 6.5 g/dL (6.4-8.2)
[2022-01-07] MEDS: CYCLOBENZAPRINE 10 MG TABLET. PO ONE ×2 (02:26→02:36)
[2022-01-07] MEDS ORDERED: ONDA-84 PO (02:30)
[2022-01-07] MEDS ORDERED: CYCL10TA19 PO (02:30)
[2022-01-07 02:40] VITALS: BP 133/64
== END 2022-01-07 02:45 | disposition home or self-care (01) ==
LOC: ER 00:21
DX: R10.31 Right lower quadrant pain (principal); R11.0 Nausea; R31.9 Hematuria, unspecified; J44.9 Chronic obstructive pulmonary disease, unspecified; I11.0 Hypertensive heart disease with heart failure; I50.9 Heart failure, unspecified; E78.00 Pure hypercholesterolemia, unspecified; I25.2 Old myocardial infarction; Z90.710 Acquired absence of both cervix and uterus; Z91.041 Radiographic dye allergy status; Z88.1 Allergy status to other antibiotic agents; Z88.2 Allergy status to sulfonamides; Z88.0 Allergy status to penicillin; Z88.4 Allergy status to anesthetic agent; Z88.6 Allergy status to analgesic agent; Z88.8 Allergy status to other drugs, medicaments and biological substances
CPT/HCPCS: 36415; 74176; 80053; 81001; 83690; 85025; 87086; 96361; 96374; 96375; 99284; J2270; J2405; J7030

== ENCOUNTER 2022-01-22 21:58 | Emergency (ER) | payer OTHER ==
[~2022-01-22] VITALS: Ht 172.7 cm; Wt 95.5 kg
[~2022-01-22 21:58] MED LIST changes: +ONDA-84 PO
[2022-01-23 00:58] VITALS: BP 128/57
--- NOTE | 2022-01-23 01:27 | PHYS DOC ---
Past Medical History Past Medical History: CHF, COPD, DVT, High Cholesterol, Hypertension, Kidney Stone, [place], P.U.D., Seizure, UTI, Other Additional Past Medical Histor: Lupus,DRUG SEEKING BEHAVIOR,INTRACTABLE ABD PAIN,PYELONEPHRITIS Past Surgical History: Appendectomy, Cholecystectomy, , Hysterectomy, Tonsillectomy Additional Past Surgical Histo: Stomach perferations repair Smoking Status: Current Every Day Smoker Alcohol Use: Rarely Drug Use: None General Adult EDM: Chief Complaint: TOE PROBLEM HPI: HPI: 46-year-old female with multiple medical problems including drug-seeking behavior, presents to the ED with complaints of right toe injury after an object fell on it 3 weeks ago. No relief with Tylenol prior to ED arrival. It is very tender to the touch. No associated rash, bleeding or purulent drainage. States nail color has not changed in the past 3 weeks. Denies any recent pedicure use. Review of Systems: Review of Systems: Constitutional: Denies fever or chills. [] Eyes: Denies change in visual acuity. [] HENT: Denies nasal congestion or sore throat. [] Respiratory: Denies cough or shortness of breath. [] Cardiovascular: Denies chest pain or edema. [] GI: Denies nausea or vomiting Musculoskeletal: Denies back pain or decreased range of motion Integument: Denies rash Or diaphoresis Neurologic: Denies focal weakness or sensory changes. [] Psychiatric: Denies depression or anxiety. [] Heart Score: C/O Chest Pain: No Risk Factors: Risk Factors: DM, Current or recent (<one month) smoker, HTN, HLP, family history of CAD, obesity. Risk Scores: Score 0 - 3: 2.5% MACE over next 6 weeks - Discharge Home Score 4 - 6: 20.3% MACE over next 6 weeks - Admit for Clinical Observation Score 7 - 10: 72.7% MACE over next 6 weeks - Early Invasive Strategies Allergies: Allergies: Allergies Coded Allergies Type Severity Reaction Last Updated Verified Iodine and Iodide Containing Produc Allergy Severe throat swelling to IV contrast 04/19/20 Yes sulfamethoxazole Allergy Severe SWELLING,TROUBLE BREATHING 05/27/20 Yes trimethoprim Allergy Severe SWELLING,TROUBLE BREATHING 05/27/20 Yes Cephalexin Monohydrate Allergy Intermediate SWELLING,TROUBLE BREATHING 04/16/20 Yes NSAIDS (Non-Steroidal Anti-Inflamma Allergy Intermediate 03/18/20 Yes Penicillins Allergy Intermediate SWELLING,TROUBLE BREATHING 04/16/20 Yes iodine Allergy Intermediate 03/18/20 Yes lidocaine Allergy Intermediate 03/18/20 Yes nitrofurantoin Allergy Intermediate rash and chest tightness 01/07/22 Yes prochlorperazine edisylate Allergy Intermediate 03/18/20 Yes prochlorperazine maleate Allergy Intermediate 03/18/20 Yes tramadol Allergy Intermediate RASH/HIVES 05/23/21 Yes Physical Exam: PE: Constitutional: Well developed, well nourished, no acute distress, non-toxic appearance. HENT: Normocephalic, atraumatic, Eyes: EOMI, conjunctiva normal, no discharge. Neck: Normal range of motion, supple, Cardiovascular: S1/2 present, regular rhythm Lungs & Thorax: Speaking in full sentences, bilateral equal chest rise, no tachypnea or increased work of breathing Skin: Warm, dry, no erythema, no rash. [] Extremities: No cyanosis, cap refill in all 10 toes less than 1 second, thickened right toenail yellow in coloration/dirt under nail edge, no toe warmth, erythema or purulent drainage, no subungual hematoma, no contusions or deformity, equal DP/PT pulses Neurologic: Alert and oriented X 3, normal motor function, normal sensory function, no focal deficits noted. [] Psychologic: Affect normal, judgement normal, mood normal. [] Current Patient Data: Vital Signs: Vital Signs Date Time Temp Pulse Resp B/P (MAP) Pulse Ox O2 Delivery O2 Flow Rate FiO2 01/23/22 00:58 70 16 128/57 (80) 100 Room Air 01/23/22 00:05 98.0 98.0 EKG: EKG: [] Radiology/Procedures: Radiology/Procedures: IMAGING REPORT Signed PATIENT: TRACIE GAONA SACCOUNT: [id number] : 1975 LOCATION: ER AGE: 46 SEX: F EXAM STATUS: DEP ER ORD. PHYSICIAN: BUZZ QUINTANA DO REASON: blunt injury PROCEDURE: TOES RIGHT Right toe x-rays 3 views HISTORY: Right toe blunt injury and pain FINDINGS: No fracture. No dislocation. No bone lesion. No arthritic change. Soft tissues are normal. IMPRESSION: No acute osseous injury. Electronically signed by: Guillermina Trejo MD (01/23/2022 1:39 AM) [facility] DICTATED and SIGNED BY: GUILLERMINA TREJO MD DATE: 01/23/22 [id number] 0 Course & Med Decision Making: Course & Med Decision Making Pertinent Labs and Imaging studies reviewed. (See chart for details) I had seen and evaluated patient who was aware of medical plan for imaging and if negative, outpatient follow-up with podiatry to evaluate for possible chronic fungal infection of right toenail. There is no physical evidence of paronychia, cellulitis or trauma to the toe on exam. If no injury on imaging I recommended [id number] analgesia. Patient was requesting medication for pain and per her report, has a history of leaving AMA if she does not receive narcotics. Patient refused to wait for imaging results and outpatient instruct ions/followup. The patient has decided to leave our facility against medical advice. I have assessed patient's ability to make informed decision and feel the patient has the capacity to comprehend information regarding the current medical condition and appreciates the impact of the disease or condition and the consequences of various options for treatment, including foregoing treatment. The patient possesses the ability to evaluate all treatment options, comparing the risks and benefits of each option, communicate his or her choice in a consistent manner over time, and is able to make rational choices. I explained to the patient further testing, treatment, and evaluation I would like to perform in the emergency department visit as well as any possible alternatives that can be accomplished in a timely manner. I have outlined the possible risks of foregoing any or all of these interventions and the patient understands and acknowledges that the decision to leave may result in undesirable consequences such as , permanent disability, and/or loss of current lifestyle. Even though leaving AMA is not ideal, I have instructed the patient to follow any discharge instructions given, take any medications prescribed, and resume care as soon as possible with another provider. This conversation was witnessed by another member of the emergency department staff and we clearly communicated the patient is welcome to return anytime to continue care at our facility. Re Disclaimer: Re Disclaimer: This electronic medical record was generated, in whole or in part, using a voice recognition dictation system. Departure Departure Impression: Primary Impression: Toe pain, right Additional Impressions: Blunt injury Left against medical advice Disposition: LEFT AGAINST MEDICAL ADVICE Condition: STABLE Referrals: NO PCP (PCP) BUZZ QUINTANA DO Jan 23, 2022 01:27
--- NOTE | 2022-01-23 01:41 | RAD ---
Right toe x-rays 3 views HISTORY: Right toe blunt injury and pain FINDINGS: No fracture. No dislocation. No bone lesion. No arthritic change. Soft tissues are normal. IMPRESSION: No acute osseous injury. Electronically signed by: Julian Aguilar MD (01/23/2022 1:39 AM) [facility]
== END 2022-01-23 01:26 | disposition left against medical advice (07) ==
LOC: ER 21:58
DX: S99.921A Unspecified injury of right foot, initial encounter (principal); J44.9 Chronic obstructive pulmonary disease, unspecified; E78.00 Pure hypercholesterolemia, unspecified; I11.0 Hypertensive heart disease with heart failure; I50.9 Heart failure, unspecified; I25.2 Old myocardial infarction; Z86.718 Personal history of other venous thrombosis and embolism; F17.200 Nicotine dependence, unspecified, uncomplicated; Z91.041 Radiographic dye allergy status; Z88.1 Allergy status to other antibiotic agents; Z88.2 Allergy status to sulfonamides; Z88.0 Allergy status to penicillin; Z88.4 Allergy status to anesthetic agent; Z88.6 Allergy status to analgesic agent; Z88.8 Allergy status to other drugs, medicaments and biological substances; W20.8XXA Other cause of strike by thrown, projected or falling object, initial encounter; Y93.89 Activity, other specified; Y92.89 Other specified places as the place of occurrence of the external cause; Y99.8 Other external cause status
CPT/HCPCS: 73660; 99283

== ENCOUNTER 2022-01-31 14:56 | Emergency (ER) | payer OTHER ==
[~2022-01-31] VITALS: Ht 167.6 cm; Wt 90.0 kg
[2022-01-31 15:38] LABS: BASO # 0.1 x10^3/uL (0.0-0.2); BASO % 2 % (0-3); EOS # 0.4 x10^3/uL (0.0-0.7); EOS % 4 % (0-3); HEMATOCRIT 34.1 % (36.0-47.0); HEMOGLOBIN 11.3 g/dL (12.0-15.5); LYMPH # 3.1 x10^3/uL (1.0-4.8); LYMPH % 31 % (24-48); MEAN CORPUSCULAR HEMOGLOBIN 31 pg (25-35); MEAN CORPUSCULAR HGB CONC 33 g/dL (31-37); MEAN CORPUSCULAR VOLUME 93 fL (79-100); MONO # 0.7 x10^3/uL (0.0-1.1); MONO % 7 % (0-9); NEUT # 5.6 x10^3/uL (1.8-7.7); NEUT % 56 % (31-73); PLATELET COUNT 547 x10^3/uL (140-400); RED BLOOD COUNT 3.67 x10^6/uL (3.50-5.40); RED CELL DISTRIBUTION WIDTH 14.4 % (11.5-14.5)
--- NOTE | 2022-01-31 15:43 | EKG ---
[facility] [address] [place] [address] Test Date: 2022-01-31 Test Time: 15:03:05 Pat Name: TRACIE GAONA Department: Room: Gender: F Chief Ultrasound Technologist: : 1975 Requested By: BUZZ QUINTANA Order Number: [id number] Reading MD: Mauricio Shafer MD Measurements Intervals [place] Rate: 76 P: -29 AK: 132 QRS: -1 QRSD: 92 T: 44 QT: 362 QTc: 411 Interpretive Statements SINUS RHYTHM Electronically Signed On 02-01-2022 17:38:32 CDT by Mauricio Shafer MD
--- NOTE | 2022-01-31 15:50 | RAD ---
AP chest. HISTORY: Chest pain AP view was taken of the chest. Lungs are clear. Heart is normal in size. There is no pleural effusio n. IMPRESSION: 1. No acute infiltrates. Electronically signed by: Fredy Hinkle MD (01/31/2022 3:47 PM) [facility]
[2022-01-31 15:53] LABS: PREG TEST PT QUAL POSITIVE (NEG)
[2022-01-31 15:54] LABS: CALCIUM 9.3 mg/dL (8.5-10.1); CREATININE 0.8 mg/dL (0.6-1.0); GFR 77.2; POTASSIUM 4.3 mmol/L (3.5-5.1)
[2022-01-31] MEDS ORDERED: NITROGLYCERIN OINT 1 GM PACKET. TP ONE (16:00)
[2022-01-31] MEDS ORDERED: ONDANSETRON PF 4 MG/2 ML VIAL. ONE (16:09)
[2022-01-31 16:10] LABS: ALBUMIN 4.1 g/dL (3.4-5.0); ALBUMIN/GLOBULIN RATIO 1.5 (1.0-1.7); MAGNESIUM 2.2 mg/dL (1.8-2.4); TOTAL BILIRUBIN 0.2 mg/dL (0.2-1.0); TOTAL PROTEIN 6.9 g/dL (6.4-8.2)
--- NOTE | 2022-01-31 16:13 | PHYS DOC ---
Past Medical History Past Medical History: CHF, COPD, DVT, High Cholesterol, Hypertension, Kidney Stone, [place], P.U.D., Seizure, UTI, Other Additional Past Medical Histor: Lupus,DRUG SEEKING BEHAVIOR,INTRACTABLE ABD PAIN,PYELONEPHRITIS Past Surgical History: Appendectomy, Cholecystectomy, , Hysterectomy, Tonsillectomy Additional Past Surgical Histo: Stomach perferations repair Smoking Status: Current Every Day Smoker Alcohol Use: None Drug Use: None General Adult EDM: Chief Complaint: CHEST PAIN HPI: HPI: 46 yo F PMH COPD, DVT s/p IVC filter, hypercholesterolemia, hypertension, kidney stones, myocardial infarction, peptic ulcer disease (perforated s/p gopal patch), seizures, anxiety/depression/bipolar disorder, questionable history of lupus and morbid obesity presents to the ed with c/o left sided, nonradiating sharp chest pain with associated nausea. Started 2 hours prior while sitting. Is not on a blood thinners. Some relief with asa and nitro by ems. Review of Systems: Review of Systems: Constitutional: Denies fever or chills. [] Eyes: Denies change in visual acuity. [] HENT: Denies nasal congestion or sore throat. [] Respiratory: Denies cough or shortness of breath. [] Cardiovascular: Denies syncope or edema. [] GI: Denies abdominal pain, vomiting, bloody stools or diarrhea. [] : Denies dysuria. [] Musculoskeletal: Denies back pain or joint pain. [] Integument: Denies rash. [] Neurologic: Denies headache, focal weakness or sensory changes. [] Endocrine: Denies polyuria or polydipsia. [] Lymphatic: Denies swollen glands. [] Psychiatric: Denies depression or anxiety. [] Heart Score: C/O Chest Pain: Yes HEART Score for Chest Pain: HEART Score for Chest Pain Response (Comments) Value History Slighlty/Non-Suspicious 0 ECG Normal 0 Age >45 - < 65 1 Risk Factors 1 or 2 Risk Factors 1 Troponin < Normal Limit 0 Total 2 Risk Factors: Risk Factors: DM, Current or recent (<one month) smoker, HTN, HLP, family history of CAD, obesity. Risk Scores: Score 0 - 3: 2.5% MACE over next 6 weeks - Discharge Home Score 4 - 6: 20.3% MACE over next 6 weeks - Admit for Clinical Observation Score 7 - 10: 72.7% MACE over next 6 weeks - Early Invasive Strategies Current Medications: Current Medications Medications (Trade) Dose Ordered Sig/Tex Start Time Stop Time Status Last Admin Dose Admin Nitroglycerin (Nitro-Bid Oint) 1 inch 1X ONCE 01/31/22 16:00 01/31/22 16:01 DC Allergies: Allergies: Allergies Coded Allergies Type Severity Reaction Last Updated Verified Iodine and Iodide Containing Produc Allergy Severe throat swelling to IV contrast 01/31/22 Yes sulfamethoxazole Allergy Severe SWELLING,TROUBLE BREATHING 01/31/22 Yes trimethoprim Allergy Severe SWELLING,TROUBLE BREATHING 01/31/22 Yes Cephalexin Monohydrate Allergy Intermediate SWELLING,TROUBLE BREATHING 01/31/22 Yes NSAIDS (Non-Steroidal Anti-Inflamma Allergy Intermediate 01/31/22 Yes Penicillins Allergy Intermediate SWELLING,TROUBLE BREATHING 01/31/22 Yes iodine Allergy Intermediate 03/18/20 Yes lidocaine Allergy Intermediate 03/18/20 Yes nitrofurantoin Allergy Intermediate rash and chest tightness 01/07/22 Yes prochlorperazine edisylate Allergy Intermediate 03/18/20 Yes prochlorperazine maleate Allergy Intermediate 03/18/20 Yes tramadol Allergy Intermediate RASH/HIVES 05/23/21 Yes Physical Exam: PE: Constitutional: Well developed, well nourished, no acute distress, non-toxic appearance. HENT: Normocephalic, atraumatic, Eyes: EOMI, conjunctiva normal, no discharge. Neck: Normal range of motion, supple, Cardiovascular: S1/2 present, regular rhythm Lungs & Thorax: Speaking in full sentences, bilateral equal chest rise, no tachypnea or increased work of breathing Abdomen: soft, no tenderness, Skin: Warm, dry, no erythema, no rash. [] Back: No tenderness, no CVA tenderness. [] Extremities: No tenderness, no cyanosis, no lower extremity edema Neurologic: Alert and oriented X 3, normal motor function, normal sensory function, no focal deficits noted. [] Psychologic: Affect normal, judgement normal, mood normal. [] Current Patient Data: Labs: Laboratory Tests Test 01/31/22 15:29 White Blood Count 10.0 x10^3/uL (4.0-11.0) Red Blood Count 3.67 x10^6/uL (3.50-5.40) Hemoglobin 11.3 g/dL (12.0-15.5) L Hematocrit 34.1 % (36.0-47.0) L Mean Corpuscular Volume 93 fL (79-100) Mean Corpuscular Hemoglobin 31 pg (25-35) Mean Corpuscular Hemoglobin Concent 33 g/dL (31-37) Red Cell Distribution Width 14.4 % (11.5-14.5) Platelet Count 547 x10^3/uL (140-400) H Neutrophils (%) (Auto) 56 % (31-73) Lymphocytes (%) (Auto) 31 % (24-48) Monocytes (%) (Auto) 7 % (0-9) Eosinophils (%) (Auto) 4 % (0-3) H Basophils (%) (Auto) 2 % (0-3) Neutrophils # (Auto) 5.6 x10^3/uL (1.8-7.7) Lymphocytes # (Auto) 3.1 x10^3/uL (1.0-4.8) Monocytes # (Auto) 0.7 x10^3/uL (0.0-1.1) Eosinophils # (Auto) 0.4 x10^3/uL (0.0-0.7) Basophils # (Auto) 0.1 x10^3/uL (0.0-0.2) Sodium Level 144 mmol/L (136-145) Potassium Level 4.3 mmol/L (3.5-5.1) Chloride Level 106 mmol/L (98-107) Carbon Dioxide Level 22 mmol/L (21-32) Anion Gap 16 (6-14) H Blood Urea Nitrogen 20 mg/dL (7-20) Creatinine 0.8 mg/dL (0.6-1.0) Estimated GFR (Cockcroft-Gault) 77.2 BUN/Creatinine Ratio 25 (6-20) H Glucose Level 89 mg/dL (70-99) Calcium Level 9.3 mg/dL (8.5-10.1) Magnesium Level Pending Total Bilirubin Pending Aspartate Amino Transferase (AST) Pending Alanine Aminotransferase (ALT) Pending Alkaline Phosphatase Pending Total Protein Pending Albumin Pending Albumin/Globulin Ratio Pending Lipase Pending Serum Test, Qualitative Positive (NEG) Laboratory Tests 01/31/22 15:29 Laboratory Tests 01/31/22 15:29 Vital Signs: Vital Signs Date Time Temp Pulse Resp B/P (MAP) Pulse Ox O2 Delivery O2 Flow Rate FiO2 01/31/22 14:57 98.5 80 16 137/84 (101) 97 Room Air 98.5 EKG: EKG: Sinus rhythm 76 bpm, no axis deviation, normal intervals, no T wave inversion, no ST elevation or ST depression Radiology/Procedures: Radiology/Procedures: IMAGING REPORT Signed PATIENT: TRACIE GAONA SACCOUNT: [id number] : 1975 LOCATION: ER AGE: 46 SEX: F EXAM STATUS: PRE ER ORD. PHYSICIAN: BUZZ QUINTANA DO REASON: cp PROCEDURE: PORTABLE CHEST 1V AP chest. HISTORY: Chest pain AP view was taken of the chest. Lungs are clear. Heart is normal in size. There is no pleural effusion. IMPRESSION: 1. No acute infiltrates. Electronically signed by: Fredy Del Toro MD (01/31/2022 3:47 PM) [facility] DICTATED and SIGNED BY: FREDY DEL TORO MD DATE: 01/31/22 1547 Course & Med Decision Making: Course & Med Decision Making Pertinent Labs and Imaging studies reviewed. (See chart for details) Pt rpesented ot the ed bibems with concern for chest pain. Pt frequently requested pain medications and reported "tylenol doesn't work." Pt has a strong history of drug seeking behavior. She understands I am wanting a urine to check for blood (ddx-aaa/dissection, although pt with no pain out of proportion) and a d-dimer to risk stratify for PE/dissection. Pt understands the primary concern is to evaluate for deadly causes of her chest pain. Pt refusing to provide urine sample and allow us to draw blood for a d-dimer. Is upset she has not received stronger pain medications. I offered ketamine. Pt refused to stay in the ed despite my attempts twice, to convince her that her chest pain is concerning and needs to be taken seriously. Pt is in no distress at rest and does have a h/o drug seeking behavior. I discussed this with her and that I wanted to address her pain with non-opiods. I was unable to convince pt to stay for furhter evaluation of deadly processes (PE, AMI or aortic process-dissection/AAA). The patient has decided to leave our facility against medical advice. I have assessed patient's ability to make informed decision and feel the patient has the capacity to comprehend information regarding the current medical condition and appreciates the impact of the disease or condition and the consequences of various options for treatment, including foregoing treatment. The patient possesses the ability to evaluate all treatment options, comparing the risks and benefits of each option, communicate his or her choice in a consistent manner over time, and is able to make rational choices. I explained to the patient further testing, treatment, and evaluation I would like to perform in the emergency department visit as well as any possible alternatives that can be accomplished in a timely manner. I have outlined the possible risks of foregoing any or all of these interventions and the patient understands and acknowledges that the decision to leave may result in undesirable consequences such as , permanent disability, and/or loss of current lifestyle. Even though leaving AMA is not ideal, I have instructed the patient to follow any discharge instructions given, take any medications prescribed, and resume care as soon as possible with another provider. This conversation was witnessed by another member of the emergency department staff and we clearly communicated the patient is welcome to return anytime to continue care at our facility. Re Disclaimer: Re Disclaimer: This electronic medical record was generated, in whole or in part, using a voice recognition dictation system. Departure Departure Impression: Primary Impression: Chest pain Additional Impressions: Nausea Left against medical advice Disposition: 07 LEFT AGAINST MEDICAL ADVICE Condition: STABLE Referrals: NO PCP (PCP) BUZZ QUINTANA DO Jan 31, 2022 16:13
[2022-01-31] MEDS ORDERED: ONDANSETRON ODT 4 MG TAB.RAPDIS. PO ONE (16:15)
[2022-01-31] MEDS ORDERED: ACETAMINOPHEN 325 MG TABLET. PO ONE (17:00)
[2022-01-31 17:49] VITALS: BP 157/80
== END 2022-01-31 17:51 | disposition left against medical advice (07) ==
LOC: ER 14:56
DX: R07.89 Other chest pain (principal); R11.0 Nausea; I11.0 Hypertensive heart disease with heart failure; I50.9 Heart failure, unspecified; J44.9 Chronic obstructive pulmonary disease, unspecified; E78.00 Pure hypercholesterolemia, unspecified; I25.2 Old myocardial infarction; Z86.718 Personal history of other venous thrombosis and embolism; F17.200 Nicotine dependence, unspecified, uncomplicated; Z88.0 Allergy status to penicillin; Z88.1 Allergy status to other antibiotic agents; Z88.2 Allergy status to sulfonamides; Z88.6 Allergy status to analgesic agent; Z88.4 Allergy status to anesthetic agent; Z91.041 Radiographic dye allergy status; Z88.8 Allergy status to other drugs, medicaments and biological substances
CPT/HCPCS: 36415; 71045; 80053; 83690; 83735; 83880; 84484; 84702; 84703; 85025; 93005; 99285; G0480

== ENCOUNTER 2022-02-18 21:47 | Inpatient (IN) | payer OTHER ==
[~2022-02-18] VITALS: Ht 172.7 cm; Wt 97.5 kg
[2022-02-19 01:30] LABS: BACTERIA,URINE 0 /HPF (0-FEW); RBC,URINE 0 /HPF (0-2)
[2022-02-19] MEDS ORDERED: KETOROLAC 15 MG/ML VIAL. IVP ONE (01:30)
[2022-02-19] MEDS ORDERED: SUCRALFATE 1 GM TABLET. PO ONE (01:30)
[2022-02-19] MEDS ORDERED: IV NORMAL SALINE 1000ML BAG 1,000 ML IV ONE (01:30)
[2022-02-19] MEDS ORDERED: PANTOPRAZOLE IV PUSH 40 MG VIAL. IVP ONE (01:30)
[2022-02-19] MEDS ORDERED: ONDANSETRON PF 4 MG/2 ML VIAL. IVP ONE (01:30)
--- NOTE | 2022-02-19 01:37 | RAD ---
EXAM: CT Abdomen and Pelvis without IV contrast CLINICAL HISTORY: Reason: upper abd pain, vomiting / Spl. Instructions: / History: . COMPARISON: 01/07/2022 TECHNIQUE: Helical CT of the abdomen and pelvis without intravenous contrast. Axial, coronal and sagi ttal reformatted images were generated. PQRS compliance statement - One or more of the following individualized dose reduction techniques wer e utilized for this study: 1. Automated exposure control 2. Adjustment of the mA and/or kV according to patient size 3. Use of iterative reconstruction technique FINDINGS: Lack of intravenous contrast limits evaluation of solid organs, vasculature, and lymph nodes. Lower chest: Lung bases are grossly clear. Abdomen and Pelvis: No focal liver lesion. Accounting for postcholecystectomy change, no biliary ductal dilatation. Pancr eas, spleen, adrenal glands are unremarkable. A punctate nonobstructing left interpolar renal calculu s. No focal renal lesion. No hydronephrosis. No hydroureter. Bladder is unremarkable. No abdominal or pelvic lymphadenopathy. A few mildly prominent pericecal lymph nodes are seen. IVC fi lter is seen, legs of the IVC filter extend beyond the margin of the IVC. Moderate colonic stool content is seen. No small or large bowel dilatation. No bowel obstruction. Radha nges of gastric bypass are seen. SMA and QUINCY maintain normal relationship. Aorta is normal in caliber . No abdominal or pelvic ascites. No abdominal or pelvic lymphadenopathy. No aggressive osseous lesion is seen. IMPRESSION: 1. Punctate nonobstructing left interpolar renal calculus. 2. Moderate colonic stool content. No bowel obstruction. 3. A few mildly prominent right lower quadrant and pericecal lymph nodes are seen, possibly reactive . Electronically signed by: Devan Dockery MD (02/19/2022 1:35 AM) [facility]
[2022-02-19 02:38] LABS: BASO # 0.2 x10^3/uL (0.0-0.2); BASO % 2 % (0-3); EOS # 0.3 x10^3/uL (0.0-0.7); EOS % 3 % (0-3); HEMATOCRIT 33.2 % (36.0-47.0); HEMOGLOBIN 11.1 g/dL (12.0-15.5); LYMPH # 4.9 x10^3/uL (1.0-4.8); LYMPH % 44 % (24-48); MEAN CORPUSCULAR HEMOGLOBIN 31 pg (25-35); MEAN CORPUSCULAR HGB CONC 33 g/dL (31-37); MEAN CORPUSCULAR VOLUME 91 fL (79-100); MONO # 0.8 x10^3/uL (0.0-1.1); MONO % 7 % (0-9); NEUT % 45 % (31-73); PLATELET COUNT 469 x10^3/uL (140-400); RED BLOOD COUNT 3.63 x10^6/uL (3.50-5.40); RED CELL DISTRIBUTION WIDTH 13.8 % (11.5-14.5); WHITE BLOOD COUNT 11.2 x10^3/uL (4.0-11.0)
[2022-02-19 02:55] LABS: CALCIUM 8.8 mg/dL (8.5-10.1); CREATININE 0.8 mg/dL (0.6-1.0); GFR 77.2; POTASSIUM 3.9 mmol/L (3.5-5.1)
[2022-02-19 02:56] LABS: PREG TEST PT QUAL NEGATIVE (NEG)
[2022-02-19 03:01] LABS: ALBUMIN 3.8 g/dL (3.4-5.0); ALBUMIN/GLOBULIN RATIO 1.2 (1.0-1.7); TOTAL BILIRUBIN 0.2 mg/dL (0.2-1.0); TOTAL PROTEIN 6.9 g/dL (6.4-8.2)
[2022-02-19] MEDS ORDERED: MORPHINE SULFATE 4 MG/ML INJ. IVP ONE ×2 (03:30→05:00)
--- NOTE | 2022-02-19 04:28 | EKG ---
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
--- NOTE | 2022-02-19 05:40 | NUR ---
Patient admitted to [address] per wheelchair from ER. Admitting diagnosis: epigastric pain. Patient stated pain started yesterday. Patient does have history of gastric ulcers. Patient is alert and oriented x4. Patient states pain is 8/10 with nausea. No vomiting reported. Will continue to monitor and notify Dr. Morejon that patient is here.
--- NOTE | 2022-02-19 05:51 | PHYS DOC ---
Past Medical History Past Medical History: CHF, COPD, DVT, High Cholesterol, Hypertension, Kidney Stone, [place], P.U.D., Seizure, UTI, Other Additional Past Medical Histor: Lupus,DRUG SEEKING BEHAVIOR,INTRACTABLE ABD PAIN,PYELONEPHRITIS Past Surgical History: Appendectomy, Cholecystectomy, , Hysterectomy, Tonsillectomy Additional Past Surgical Histo: Stomach perferations repair Smoking Status: Current Every Day Smoker Alcohol Use: None Drug Use: None Adult General Chief Complaint Chief Complaint: ABDOMINAL PAIN HPI HPI 46-year-old female with chronic abdominal pain and prior gastrectomy secondary to what she reports is a perforated ulcer in the past, here for 2 days of focal, sharp, nonradiating epigastric pain that she reports feels like her prior ulcer discomfort. Associated nausea without vomiting. No fevers, upper respiratory congestion/rhinorrhea, cough, sore throat, shortness of breath or chest pain of any kind, right-sided or lower abdominal pain of any kind, flank pain, midline back pain, dysuria, hematuria, polyuria or oliguria, changes in bowel habits, pain or swelling to arms or legs. Review of Systems Review of Systems A 12 point review of systems was completed and was negative except where noted in HPI above. Current Medications Current Medications Current Medications Medications (Trade) Dose Ordered Sig/Tex Start Time Stop Time Status Last Admin Dose Admin Ketorolac Tromethamine (Toradol 15mg Vial) 15 mg 1X ONCE 02/19/22 01:30 02/19/22 01:31 DC Morphine Sulfate (Morphine Sulfate) 4 mg 1X ONCE 02/19/22 03:30 02/19/22 03:31 DC 02/19/22 03:15 4 MG Ondansetron HCl (Zofran) 4 mg 1X ONCE 02/19/22 01:30 02/19/22 01:31 DC 02/19/22 02:33 4 MG Pantoprazole Sodium (PROTONIX VIAL for IV PUSH) 40 mg 1X ONCE 02/19/22 01:30 02/19/22 01:31 DC 02/19/22 02:33 40 MG Sodium Chloride 1,000 ml @ 1,000 mls/hr 1X ONCE 02/19/22 01:30 02/19/22 02:29 DC 02/19/22 02:33 1,000 MLS/HR Sucralfate (Carafate) 1 gm 1X ONCE 02/19/22 01:30 02/19/22 01:31 DC 02/19/22 02:33 1 GM Allergies Allergies Allergies Coded Allergies Type Severity Reaction Last Updated Verified Iodine and Iodide Containing Produc Allergy Severe throat swelling to IV contrast 01/31/22 Yes sulfamethoxazole Allergy Severe SWELLING,TROUBLE BREATHING 01/31/22 Yes trimethoprim Allergy Severe SWELLING,TROUBLE BREATHING 01/31/22 Yes Cephalexin Monohydrate Allergy Intermediate SWELLING,TROUBLE BREATHING 01/31/22 Yes NSAIDS (Non-Steroidal Anti-Inflamma Allergy Intermediate 01/31/22 Yes Penicillins Allergy Intermediate SWELLING,TROUBLE BREATHING 01/31/22 Yes iodine Allergy Intermediate 03/18/20 Yes lidocaine Allergy Intermediate 03/18/20 Yes nitrofurantoin Allergy Intermediate rash and chest tightness 01/07/22 Yes prochlorperazine edisylate Allergy Intermediate 03/18/20 Yes prochlorperazine maleate Allergy Intermediate 03/18/20 Yes tramadol Allergy Intermediate RASH/HIVES 05/23/21 Yes Physical Exam Physical Exam 46-year-old female appearing nontoxic and in no acute distress. Head is normocephalic and atraumatic. Neck is supple and nontender. Oropharynx is moist. Lungs are clear to auscultation at all stations. There is a normal S1 and S2 without rubs or gallops and capillary refill is appropriate, less than 2 seconds globally. Abdomen is soft, nondistended and with mild focal epigastric tenderness to palpation without rebound or guarding. No right-sided or lower quadrant abdominal tenderness to palpation. Skin is warm and dry without cyanosis, clubbing or edema. Psychiatrically, the patient demonstrates appropriate mood and affect and is alert. Current Patient Data Vital Signs Vital Signs Date Time Temp Pulse Resp B/P (MAP) Pulse Ox O2 Delivery O2 Flow Rate FiO2 02/19/22 03:30 64 95 Room Air 02/19/22 01:00 97.8 14 158/74 (102) 97.8 Lab Values Laboratory Tests Test 02/19/22 00:50 02/19/22 02:25 Urine Collection Type Unknown Urine Color (Auto) Yellow Urine Turbidity Clear Urine pH (Auto) 6.0 (<5.0-8.0) Urine Specific [place] 1.048 (1.000-1.030) Urine Protein (Auto) Negative mg/dL (Negative) Urine Glucose (Auto)(UA) Negative mg/dL (Negative) Urine Ketones (Auto) Negative mg/dL (Negative) Urine Blood (Auto) Negative (Negative) Urine Nitrite Negative (Negative) Urine Bilirubin (Auto) Negative (Negative) Urine Urobilinogen (Auto) 2 mg/dL (Normal) Urine Leukocyte Esterase (Auto) Small (Negative) Urine RBC 0 /HPF (0-2) Urine WBC 1-4 /HPF (0-4) Urine Squamous Epithelial Cells Mod /LPF Urine Bacteria 0 /HPF (0-FEW) Urine Mucus Mod /LPF White Blood Count 11.2 x10^3/uL (4.0-11.0) H Red Blood Count 3.63 x10^6/uL (3.50-5.40) Hemoglobin 11.1 g/dL (12.0-15.5) L Hematocrit 33.2 % (36.0-47.0) L Mean Corpuscular Volume 91 fL (79-100) Mean Corpuscular Hemoglobin 31 pg (25-35) Mean Corpuscular Hemoglobin Concent 33 g/dL (31-37) Red Cell Distribution Width 13.8 % (11.5-14.5) Platelet Count 469 x10^3/uL (140-400) H Neutrophils (%) (Auto) 45 % (31-73) Lymphocytes (%) (Auto) 44 % (24-48) Monocytes (%) (Auto) 7 % (0-9) Eosinophils (%) (Auto) 3 % (0-3) Basophils (%) (Auto) 2 % (0-3) Neutrophils # (Auto) 5.0 x10^3/uL (1.8-7.7) Lymphocytes # (Auto) 4.9 x10^3/uL (1.0-4.8) H Monocytes # (Auto) 0.8 x10^3/uL (0.0-1.1) Eosinophils # (Auto) 0.3 x10^3/uL (0.0-0.7) Basophils # (Auto) 0.2 x10^3/uL (0.0-0.2) Sodium Level 141 mmol/L (136-145) Potassium Level 3.9 mmol/L (3.5-5.1) Chloride Level 107 mmol/L (98-107) Carbon Dioxide Level 21 mmol/L (21-32) Anion Gap 13 (6-14) Blood Urea Nitrogen 22 mg/dL (7-20) H Creatinine 0.8 mg/dL (0.6-1.0) Estimated GFR (Cockcroft-Gault) 77.2 BUN/Creatinine Ratio 28 (6-20) H Glucose Level 102 mg/dL (70-99) H Calcium Level 8.8 mg/dL (8.5-10.1) Total Bilirubin 0.2 mg/dL (0.2-1.0) Aspartate Amino Transferase (AST) 6 U/L (15-37) L Alanine Aminotransferase (ALT) 15 U/L (14-59) Alkaline Phosphatase 67 U/L (46-116) Troponin I High Sensitivity < 4 ng/L (4-50) L Total Protein 6.9 g/dL (6.4-8.2) Albumin 3.8 g/dL (3.4-5.0) Albumin/Globulin Ratio 1.2 (1.0-1.7) Lipase 58 U/L (73-393) L Serum Test, Qualitative Negative (NEG) Laboratory Tests 02/19/22 02:25 Laboratory Tests 02/19/22 02:25 EKG EKG Sinus rhythm, rate 67, no acute ST elevation or depression, [place] 144, QRS 100, QTc 432, EP interpretation. Nonischemic tracing, intervals appropriate. Radiology/Procedures Radiology/Procedures EXAM: CT Abdomen and Pelvis without IV contrast CLINICAL HISTORY: Reason: upper abd pain, vomiting / Spl. Instructions: / History: . COMPARISON: 01/07/2022 TECHNIQUE: Helical CT of the abdomen and pelvis without intravenous contrast. Axial, coronal and sagittal reformatted images were generated. PQRS compliance statement - One or more of the following individualized dose reduction techniques were utilized for this study: 1. Automated exposure control 2. Adjustment of the mA and/or kV according to patient size 3. Use of iterative reconstruction technique FINDINGS: Lack of intravenous contrast limits evaluation of solid organs, vasculature, and lymph nodes. Lower chest: Lung bases are grossly clear. Abdomen and Pelvis: No focal liver lesion. Accounting for postcholecystectomy change, no biliary ductal dilatation. Pancreas, spleen, adrenal glands are unremarkable. A punctate nonobstructing left interpolar renal calculus. No focal renal lesion. No hydronephrosis. No hydroureter. Bladder is unremarkable. No abdominal or pelvic lymphadenopathy. A few mildly prominent pericecal lymph nodes are seen. IVC filter is seen, legs of the IVC filter extend beyond the margin of the IVC. Moderate colonic stool content is seen. No small or large bowel dilatation. No bowel obstruction. Changes of gastric bypass are seen. SMA and QUINCY maintain normal relationship. Aorta is normal in caliber. No abdominal or pelvic ascites. No abdominal or pelvic lymphadenopathy. No aggressive osseous lesion is seen. IMPRESSION: 1. Punctate nonobstructing left interpolar renal calculus. 2. Moderate colonic stool content. No bowel obstruction. 3. A few mildly prominent right lower quadrant and pericecal lymph nodes are seen, possibly reactive. Electronically signed by: Devan Dockery MD (02/19/2022 1:35 AM) [facility] DICTATED and SIGNED BY: DEVAN DOCKERY MD DATE: 02/19/22125 Course & Med Decision Making Course & Med Decision Making Work-up unremarkable as above. Have not been able to control patient's discomfort and medication options to control it are quite limited. She is concerned that she has another serious ulcer as pain feels identical to prior ulcer pain. Discussed options with her and she would prefer to be admitted to see gastroenterology. Will likely benefit from upper endoscopy. Graciously accepted for admission by Dr. Morejon. Re Disclaimer Re Disclaimer This electronic medical record was generated, in whole or in part, using a voice recognition dictation system. Departure Departure Impression: Primary Impression: Acute epigastric pain Disposition: ADMITTED INPATIENT Condition: STABLE Referrals: NO PCP (PCP) MART TOM MD Feb 19, 2022 05:51
--- NOTE | 2022-02-19 06:09 | EKG ---
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
[2022-02-19] MEDS ORDERED: ONDANSETRON PF 4 MG/2 ML VIAL. IVP PRN ×2 (06:15→13:00)
[2022-02-19 07:00] VITALS: BP 115/57
[2022-02-19] MEDS ORDERED: SENN1TAB99 PO (07:03)
[2022-02-19] MEDS ORDERED: ZOLP5TAB PO (07:03)
--- NOTE | 2022-02-19 07:17 | PDOC1 ---
History and Physical Date of Admission Date of Admission DATE: 02/19/22 TIME: 07:07 Identification/Chief Complaint Chief Complaint Abdominal pain Source Source: Patient History of Present Illness History of Present Illness Ms Goncalves is a 46yo F w/ PMHx COPD, DVT s/p IVC filter, hypercholesterolemia, hypertension, kidney stones, myocardial infarction, peptic ulcer disease (perforated s/p gopal patch), seizures, anxiety/depression, BP disorder, questionable history of lupus and obesity who comes to the ED on 02/19/2022 c/o intractable abdominal pain. She notes early satiety and decreased appetite. She is adentulous and has a soft diet at baseline. She does not note any change in her stools though she thinks they are darker than usual. She relates she still been taking her Carafate 4 times a day and protonix daily, notes she has been taking nexium as well. No recent travel or sick contacts. She notes she has been working a lot lately and has not had time to have any GI general surgery follow-up. Patient denies any chest pain, no trouble breathing, no cough, no fever. This morning complaining of pain. Notes she has had multiple bowel movements all formed no watery. Previously on Latuda and Risperdal and Keppra. She also wants something for pain. EKG sinus rhythm rate 67 bpm normal axis intervals QTc 430. Labs revealed WBC 11.1, Hb 11.1, platelets 469, urinalysis bland small leukocyte esterase negative test, NA 141, K3.9, BUN 22, CR 0.8, glucose 102, calcium 8.8, bilirubin 0.2, AST 6, ALT 15, alkaline phosphatase 67, albumin 3.8, lipase 58, high-sensitivity troponin is less than 4. CT abdomen pelvis with bilateral nonobstructive nephrolithiasis moderate colonic stool content possible pericecal lymphadenopathy. Patient has been evaluated multiple times for the same problem, but not seen since the end of 2020, though she has had multiple ED visits for various pain complaints. Prescription monitoring report does not show any controlled substances dispensed in [facility] since September 2021. Patient was admitted here on October 23, 2020 due to intractable abdominal pain. On October 30, 2020, patient had partial distal gastrectomy with bilroth 2 reconstruction, removal of mesh. Patient was discharged home on November 08, 2020. Patient came back to ER the next day due to abdominal pain with nausea vomiting. CT scan of her abdomen and pelvic did not show any acute problem on 11/09/2020 and she has had 25 CT scans of abdomen and pelvis since 2017. Past Medical History Cardiovascular: No pertinent hx Pulmonary: COPD, Pulmonary embolus GI: GERD, GI bleed, Gastritis, Peptic Ulcer disease, Other Heme/Onc: No pertinent hx Hepatobiliary: No pertinent hx Psych: No pertinent hx Musculoskeletal: low back pain Rheumatologic: Other Endocrine: No pertinent hx Past Surgical History Past Surgical History: Appendectomy, Cholecystectomy, , Hernia Repair, Hysterectomy, Other Family History Family History: Alzheimer's Disease, Hypertension Social History Smoke: Quit ALCOHOL: rare Drugs: None Current Problem List Problem List Problems Medical Problems: (1) Acute epigastric pain Status: Acute Current Medications Current Medications Current Medications Pantoprazole Sodium (PROTONIX VIAL for IV PUSH) 40 mg 1X ONCE IVP Last administered on 02/19/22at 02:33; Start 02/19/22 at 01:30; Stop 02/19/22 at 01:31; Status DC Sucralfate (Carafate) 1 gm 1X ONCE PO Last administered on 02/19/22at 02:33; Start 02/19/22 at 01:30; Stop 02/19/22 at 01:31; Status DC Ketorolac Tromethamine (Toradol 15mg Vial) 15 mg 1X ONCE IVP ; Start 02/19/22 at 01:30; Stop 02/19/22 at 01:31; Status DC Ondansetron HCl (Zofran) 4 mg 1X ONCE IVP Last administered on 02/19/22at 02:33; Start 02/19/22 at 01:30; Stop 02/19/22 at 01:31; Status DC Sodium Chloride 1,000 ml @ 1,000 mls/hr 1X ONCE IV Last administered on 02/19/22at 02:33; Start 02/19/22 at 01:30; Stop 02/19/22 at 02:29; Status DC Morphine Sulfate (Morphine Sulfate) 4 mg 1X ONCE IVP Last administered on 02/19/22at 03:15; Start 02/19/22 at 03:30; Stop 02/19/22 at 03:31; Status DC Morphine Sulfate (Morphine Sulfate) 4 mg 1X ONCE IVP Last administered on 02/19/22at 04:51; Start 02/19/22 at 05:00; Stop 02/19/22 at 05:01; Status DC Ondansetron HCl (Zofran) 4 mg PRN Q8HRS PRN IVP NAUSEA/VOMITING 1ST CHOICE; Start 02/19/22 at 06:15; Stop 02/20/22 at 06:14 Morphine Sulfate (Morphine Sulfate) 2 mg PRN Q2HR PRN IVP SEVERE PAIN 7-10; Start 02/19/22 at 06:15; Stop 02/20/22 at 06:14 Active Scripts Active Latuda (Lurasidone Hcl) 40 Mg Tablet 40 Mg PO DAILYWBKFT 30 Days Protonix (Pantoprazole Sodium) 40 Mg Tablet.dr 40 Mg PO BIDAC 30 Days Keppra (Levetiracetam) 500 Mg Tablet 500 Mg PO BID 30 Days Ondansetron Odt (Ondansetron) 4 Mg Tab.rapdis 1 Tab PO PRN Q6-8HRS PRN Proair Hfa Inhaler (Albuterol Sulfate) 8.5 Gm Hfa.aer.ad 2 Puff IH PRN Q4-6HRS PRN 21 Days Proair Hfa (Albuterol Sulfate) 8.5 Gm Hfa.aer.ad 2.5 Mg NEB PRN Q4HRS PRN 30 Days Culturelle (Lactobacillus Rhamnosus Gg) 1 Each Cap.sprink 1 Cap PO BID 30 Days Reported Ambien (Zolpidem Tartrate) 5 Mg Tablet 5 Mg PO PRN QHS PRN Senna-Docusate Sodium Tablet (Sennosides/Docusate Sodium) 1 Each Tablet 1 Tab PO PRN QHS 20 Days Klor-Con 10 (Potassium Chloride) 10 Meq Tablet.er 1 Tab PO DAILY 30 Days Carafate (Sucralfate) 1 Gm Tablet 1 Tab PO QID 30 Days Lasix (Furosemide) 40 Mg Tablet 40 Mg PO BID Clonazepam 1 Mg Tablet 1 Mg PO PRN Q6HRS PRN Risperdal (Risperidone) 4 Mg Tablet 5 Mg PO BID Prozac (Fluoxetine Hcl) 40 Mg Capsule 1 Cap PO DAILY Allergies Allergies: Coded Allergies: Iodine and Iodide Containing Produc (Verified Allergy, Severe, throat swelling to IV contrast, 01/31/22) sulfamethoxazole (Verified Allergy, Severe, SWELLING,TROUBLE BREATHING, 01/31/22) trimethoprim (Verified Allergy, Severe, SWELLING,TROUBLE BREATHING, 01/31/22) Cephalexin Monohydrate (Verified Allergy, Intermediate, SWELLING,TROUBLE BREATHING, 01/31/22) NSAIDS (Non-Steroidal Anti-Inflamma (Verified Allergy, Intermediate, 01/31/22) TORADOL OK Penicillins (Verified Allergy, Intermediate, SWELLING,TROUBLE BREATHING, 01/31/22) iodine (Verified Allergy, Intermediate, 03/18/20) lidocaine (Verified Allergy, Intermediate, 03/18/20) nitrofurantoin (Verified Allergy, Intermediate, rash and chest tightness, 01/07/22) prochlorperazine edisylate (Verified Allergy, Intermediate, 03/18/20) prochlorperazine maleate (Verified Allergy, Intermediate, 03/18/20) tramadol (Verified Allergy, Intermediate, RASH/HIVES, 05/23/21) ROS General: YES: Fatigue, Malaise; No: Chills, Night Sweats, Appetite, Other PSYCHOLOGICAL ROS: YES: Depression; No: Anxiety, Behavioral Disorder, Concentration difficultie, Decreased libido, Disorientation, Hallucinations, Hostility, Irritablity, Memory difficulties, Mood Swings, Obsessive thoughts, Physical abuse, Sexual abuse, Sleep disturbances, Suicidal ideation, Other Eyes: No Blurry vision, No Decreased vision, No Double vision, No Dry eyes, No Excessive tearing, No Eye Pain, No Itchy Eyes, No Loss of vision, No Photophobia, No Scotomata, No Uses contacts, No Uses glasses, No Other HEENT: No: Heacaches, Visual Changes, Hearing change, Nasal congestion, Nasal discharge, Oral lesions, Sinus pain, Sore Throat, Epistaxis, Sneezing, Snoring, Tinnitus, Vertigo, Vocal changes, Other ALLERGY AND IMMUNOLOGY: No: Hives, Insect Bite Sensitivity, Itchy/Watery Eyes, Nasal Congestion, Post Nasal Drip, Seasonal Allergies, Other Hematological and Lymphatic: No: Bleeding Problems, Blood Clots, Blood Transfusions, Brusing, Night Sweats, Pallor, Swollen Lymph Nodes, Other ENDOCRINE: No: Breast Changes, Galactorrhea, Hair Pattern Changes, Hot Flashes, Malaise/lethargy, Mood Swings, Palpitations, Polydipsia/polyuria, Skin Changes, Temperature Intolerance, Unexpected Weight Changes, Other Breast: No New/Changing Breast Lumps, No Nipple changes, No Nipple discharge, No Other Respiratory: No: Cough, Hemoptysis, Orthopnea, Pleuritic Pain, Shortness of breath, SOB with excertion, Sputum Changes, Stridor, Tachypnea, Wheezing, Other Cardiovascular: No Chest Pain, No Palpitations, No Orthopnea, No Paroxysmal Noc. Dyspnea, No Edema, No Lt Headedness, No Other Gastrointestinal: Yes Nausea, Yes Abdominal Pain; No Vomiting, No Diarrhea, No Constipation, No Melena, No Hematochezia, No Other Genitourinary: No Dysuria, No Frequency, No Incontinence, No Hematuria, No Retention, No Discharge, No Urgency, No Pain, No Flank Pain, No Other, No , No , No , No , No , No , No Musculoskeletal: No Gait Disturbance, No Joint Pain, No Joint Stiffness, No Joint Swelling, No Muscle Pain, No Muscular Weakness, No Pain In:, No Swelling In:, No Other Neurological: No Behavorial Changes, No Bowel/Bladder ControlChng, No Confusion, No Dizziness, No Gait Disturbance, No Headaches, No Impaired Coord/balance, No Memory Loss, No Numbness/Tingling, No Seizures, No Speech Problems, No Tremors, No Visual Changes, No Weakness, No Other Skin: No Dry Skin, No Eczema, No Hair Changes, No Lumps, No Mole Changes, No Mottling, No Nail Changes, No Pruritus, No Rash, No Skin Lesion Changes, No Other, No Acne Physical Exam General: Alert, Oriented X3, Cooperative, mild distress HEENT: Atraumatic, PERRLA, EOMI, Mucous membr. moist/pink Lungs: Clear to auscultation, Normal air movement Heart: S1S2, RRR, no thrills, no rubs, no gallops, no murmurs Abdomen: Other (epigastric abdominal pain) Rectal Exam: not examined Extremities: No clubbing, No cyanosis, No edema, Normal pulses, No tenderness/swelling Skin: No rashes, No breakdown, No significant lesion Neuro: Normal gait, Normal speech, Strength at 5/5 X4 ext, Normal tone, Sensation intact, Cranial nerves 3-12 NL, Reflexes 2+ Psych/Mental Status: Mental status NL, Mood NL Vitals Vitals Vital Signs Date Time Temp Pulse Resp B/P (MAP) Pulse Ox O2 Delivery O2 Flow Rate FiO2 02/19/22 05:28 70 123/60 (81) 92 Room Air 02/19/22 01:00 97.8 14 97.8 Labs Labs Laboratory Tests Test 02/19/22 00:50 02/19/22 02:25 Urine Collection Type Unknown Urine Color (Auto) Yellow Urine Turbidity Clear Urine pH (Auto) 6.0 (<5.0-8.0) Urine Specific [place] 1.048 (1.000-1.030) Urine Protein (Auto) Negative mg/dL (Negative) Urine Glucose (Auto)(UA) Negative mg/dL (Negative) Urine Ketones (Auto) Negative mg/dL (Negative) Urine Blood (Auto) Negative (Negative) Urine Nitrite Negative (Negative) Urine Bilirubin (Auto) Negative (Negative) Urine Urobilinogen (Auto) 2 mg/dL (Normal) Urine Leukocyte Esterase (Auto) Small (Negative) Urine RBC 0 /HPF (0-2) Urine WBC 1-4 /HPF (0-4) Urine Squamous Epithelial Cells Mod /LPF Urine Bacteria 0 /HPF (0-FEW) Urine Mucus Mod /LPF White Blood Count 11.2 x10^3/uL (4.0-11.0) Red Blood Count 3.63 x10^6/uL (3.50-5.40) Hemoglobin 11.1 g/dL (12.0-15.5) Hematocrit 33.2 % (36.0-47.0) Mean Corpuscular Volume 91 fL (79-100) Mean Corpuscular Hemoglobin 31 pg (25-35) Mean Corpuscular Hemoglobin Concent 33 g/dL (31-37) Red Cell Distribution Width 13.8 % (11.5-14.5) Platelet Count 469 x10^3/uL (140-400) Neutrophils (%) (Auto) 45 % (31-73) Lymphocytes (%) (Auto) 44 % (24-48) Monocytes (%) (Auto) 7 % (0-9) Eosinophils (%) (Auto) 3 % (0-3) Basophils (%) (Auto) 2 % (0-3) Neutrophils # (Auto) 5.0 x10^3/uL (1.8-7.7) Lymphocytes # (Auto) 4.9 x10^3/uL (1.0-4.8) Monocytes # (Auto) 0.8 x10^3/uL (0.0-1.1) Eosinophils # (Auto) 0.3 x10^3/uL (0.0-0.7) Basophils # (Auto) 0.2 x10^3/uL (0.0-0.2) Sodium Level 141 mmol/L (136-145) Potassium Level 3.9 mmol/L (3.5-5.1) Chloride Level 107 mmol/L (98-107) Carbon Dioxide Level 21 mmol/L (21-32) Anion Gap 13 (6-14) Blood Urea Nitrogen 22 mg/dL (7-20) Creatinine 0.8 mg/dL (0.6-1.0) Estimated GFR (Cockcroft-Gault) 77.2 BUN/Creatinine Ratio 28 (6-20) Glucose Level 102 mg/dL (70-99) Calcium Level 8.8 mg/dL (8.5-10.1) Total Bilirubin 0.2 mg/dL (0.2-1.0) Aspartate Amino Transf (AST/SGOT) 6 U/L (15-37) Alanine Aminotransferase (ALT/SGPT) 15 U/L (14-59) Alkaline Phosphatase 67 U/L (46-116) Troponin I High Sensitivity < 4 ng/L (4-50) Total Protein 6.9 g/dL (6.4-8.2) Albumin 3.8 g/dL (3.4-5.0) Albumin/Globulin Ratio 1.2 (1.0-1.7) Lipase 58 U/L (73-393) Serum Test, Qualitative Negative (NEG) Laboratory Tests Test 02/19/22 00:50 02/19/22 02:25 Urine Collection Type Unknown Urine Color (Auto) Yellow Urine Turbidity Clear Urine pH (Auto) 6.0 (<5.0-8.0) Urine Specific [place] 1.048 (1.000-1.030) Urine Protein (Auto) Negative mg/dL (Negative) Urine Glucose (Auto)(UA) Negative mg/dL (Negative) Urine Ketones (Auto) Negative mg/dL (Negative) Urine Blood (Auto) Negative (Negative) Urine Nitrite Negative (Negative) Urine Bilirubin (Auto) Negative (Negative) Urine Urobilinogen (Auto) 2 mg/dL (Normal) Urine Leukocyte Esterase (Auto) Small (Negative) Urine RBC 0 /HPF (0-2) Urine WBC 1-4 /HPF (0-4) Urine Squamous Epithelial Cells Mod /LPF Urine Bacteria 0 /HPF (0-FEW) Urine Mucus Mod /LPF White Blood Count 11.2 x10^3/uL (4.0-11.0) Red Blood Count 3.63 x10^6/uL (3.50-5.40) Hemoglobin 11.1 g/dL (12.0-15.5) Hematocrit 33.2 % (36.0-47.0) Mean Corpuscular Volume 91 fL (79-100) Mean Corpuscular Hemoglobin 31 pg (25-35) Mean Corpuscular Hemoglobin Concent 33 g/dL (31-37) Red Cell Distribution Width 13.8 % (11.5-14.5) Platelet Count 469 x10^3/uL (140-400) Neutrophils (%) (Auto) 45 % (31-73) Lymphocytes (%) (Auto) 44 % (24-48) Monocytes (%) (Auto) 7 % (0-9) Eosinophils (%) (Auto) 3 % (0-3) Basophils (%) (Auto) 2 % (0-3) Neutrophils # (Auto) 5.0 x10^3/uL (1.8-7.7) Lymphocytes # (Auto) 4.9 x10^3/uL (1.0-4.8) Monocytes # (Auto) 0.8 x10^3/uL (0.0-1.1) Eosinophils # (Auto) 0.3 x10^3/uL (0.0-0.7) Basophils # (Auto) 0.2 x10^3/uL (0.0-0.2) Sodium Level 141 mmol/L (136-145) Potassium Level 3.9 mmol/L (3.5-5.1) Chloride Level 107 mmol/L (98-107) Carbon Dioxide Level 21 mmol/L (21-32) Anion Gap 13 (6-14) Blood Urea Nitrogen 22 mg/dL (7-20) Creatinine 0.8 mg/dL (0.6-1.0) Estimated GFR (Cockcroft-Gault) 77.2 BUN/Creatinine Ratio 28 (6-20) Glucose Level 102 mg/dL (70-99) Calcium Level 8.8 mg/dL (8.5-10.1) Total Bilirubin 0.2 mg/dL (0.2-1.0) Aspartate Amino Transf (AST/SGOT) 6 U/L (15-37) Alanine Aminotransferase (ALT/SGPT) 15 U/L (14-59) Alkaline Phosphatase 67 U/L (46-116) Troponin I High Sensitivity < 4 ng/L (4-50) Total Protein 6.9 g/dL (6.4-8.2) Albumin 3.8 g/dL (3.4-5.0) Albumin/Globulin Ratio 1.2 (1.0-1.7) Lipase 58 U/L (73-393) Serum Test, Qualitative Negative (NEG) Images Images CT Abdomen and Pelvis without IV contrast CLINICAL HISTORY: Reason: upper abd pain, vomiting / Spl. Instructions: / History: . COMPARISON: 01/07/2022 TECHNIQUE: Helical CT of the abdomen and pelvis without intravenous contrast. Axial, coronal and sagittal reformatted images were generated. PQRS compliance statement - One or more of the following individualized dose reduction techniques were utilized for this study: 1. Automated exposure control 2. Adjustment of the mA and/or kV according to patient size 3. Use of iterative reconstruction technique FINDINGS: Lack of intravenous contrast limits evaluation of solid organs, vasculature, and lymph nodes. Lower chest: Lung bases are grossly clear. Abdomen and Pelvis: No focal liver lesion. Accounting for postcholecystectomy change, no biliary ductal dilatation. Pancreas, spleen, adrenal glands are unremarkable. A punctate nonobstructing left interpolar renal calculus. No focal renal lesion. No hydronephrosis. No hydroureter. Bladder is unremarkable. No abdominal or pelvic lymphadenopathy. A few mildly prominent pericecal lymph nodes are seen. IVC filter is seen, legs of the IVC filter extend beyond the margin of the IVC. Moderate colonic stool content is seen. No small or large bowel dilatation. No bowel obstruction. Changes of gastric bypass are seen. SMA and QUINCY maintain normal relationship. Aorta is normal in caliber. No abdominal or pelvic ascites. No abdominal or pelvic lymphadenopathy. No aggressive osseous lesion is seen. IMPRESSION: 1. Punctate nonobstructing left interpolar renal calculus. 2. Moderate colonic stool content. No bowel obstruction. 3. A few mildly prominent right lower quadrant and pericecal lymph nodes are seen, possibly reactive. VTE Prophylaxis Ordered VTE Prophylaxis Devices: No VTE Pharmacological Prophylaxi: No Assessment/Plan Assessment/Plan Nausea without vomiting - IV antiemetics, she is asking for PO already Early satiety -possible gastroparesis. Check A1c TSH Abdominal pain -intractable significant solid stool content PUD - s/p partial distal gastrectomy with bilroth 2 reconstruction, removal of mesh. Had prior perforated gastric ulcer status post repair of perforated ulcer w/ gopal patch H/o drug seeking behavior documented, will minimize IV pain medications, change to hydrocodone Leukocytosis - mild Diffuse peritonitis - improved from prior Normocytic Anemia - will check B12, iron Multiple abx allergies - PCN, Keflex, bactrim Bilateral nephrolithiasis, nonobstructive Schizophrenia/bipolar disorder - restart meds Anxiety/depression ?History of Lupus History of CHF - diastolic, not in HF History of COPD - prn albuterol Prior Smoker FEN - NPO, ADAT PPX - lovenox CODE - FULL Dispo - inpatient Justifications for Admission Other Justification N/V and suicidal ideation JONEL GOVEA MD Feb 19, 2022 07:17
[2022-02-19] MEDS: MORPHINE SULFATE 2 MG/ML INJ. IVP PRN ×5 (08:13→21:55)
--- NOTE | 2022-02-19 09:58 | PDOC2 ---
GI CONSULT Date of Service: DATE: 02/19/22 TIME: 09:58 Reason For Consult: intractable epigastric pain, h/o multiple ulcers HPI: HPI: 46 y/o female admitted through ER. 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 Constant "tearing" pain similar to past perforation. Associated w/ vomiting x 2 yesterday, decreased appetite x 2 weeks, dark stool last Friday (before pain began). H/o perforated s/p repair w/ Inderjit patch by Beatrice Landers in 03/2020, also drain placement w/ IR for perigastric fluid collection. Gastrin normal. EGD 10/[address] Silva showed giant antral ulcer. Then partial distal gastrectomy w/ Billroth 2 reconstruction and removal of mesh by Dr. Landers. Iron studies w/ KENROY/ACD then. Additional in 2016 w/ non-erosive gastritis and pyloric channel ulcer (biopsy w/ reactive gastropathy and negative for H. pylori and malignancy). Previously reported colonoscopy many years ago, today says no previous colonoscopy. S/p cholecystectomy. Denies liver and pancreas history. Has had 25 CTs of abd/pelv and 1 CT C/A/P at this facility since 2016. Taking Carafate QID + Pantoprazole BID + Pepcid QD at home. Tylenol for pain, no NSAIDs. Frequently seen in ER for pain, sometimes leaves AMA. Denies reflux/heartburn, dysphagia, hematemesis, diarrhea, constipation, hematochezia, melena ("just dark"), and weight loss. PMH: PMH: per HPI and: CHF, COPD, DVT/PE, ID, nephrolithiasis, seizure, UTI, lupus (?), left adrenal adenoma appendectomy, , hysterectomy, tonsillectomy, ventral hernia repair, IVC filter FH: Family History: Cancer (denies GI cancers), CAD, CVA, DM, Hypertension Social History: Smoke: <1 pack per day ALCOHOL: rare Drugs: None ROS: GEN: Denies fevers, chills, sweats HEENT: Denies blurred vision, sore throat CV: Denies chest pain RESP: Denies shortness of air, cough GI: Per HPI : Denies hematuria, dysuria ENDO: Denies weight changes NEURO: Denies confusion, dizziness MSK: Denies weakness, joint pain/swelling SKIN: Denies jaundice, pruritus Vitals: Vitals: Vital Signs Date Time Temp Pulse Resp B/P (MAP) Pulse Ox O2 Delivery O2 Flow Rate FiO2 02/19/22 08:43 Room Air 02/19/22 07:00 97.9 66 18 115/57 (76) 98 97.9 Labs: Labs: Laboratory Tests Test 02/19/22 00:50 02/19/22 02:25 Urine Collection Type Unknown Urine Color (Auto) Yellow Urine Turbidity Clear Urine pH (Auto) 6.0 (<5.0-8.0) Urine Specific [place] 1.048 (1.000-1.030) Urine Protein (Auto) Negative mg/dL (Negative) Urine Glucose (Auto)(UA) Negative mg/dL (Negative) Urine Ketones (Auto) Negative mg/dL (Negative) Urine Blood (Auto) Negative (Negative) Urine Nitrite Negative (Negative) Urine Bilirubin (Auto) Negative (Negative) Urine Urobilinogen (Auto) 2 mg/dL (Normal) Urine Leukocyte Esterase (Auto) Small (Negative) Urine RBC 0 /HPF (0-2) Urine WBC 1-4 /HPF (0-4) Urine Squamous Epithelial Cells Mod /LPF Urine Bacteria 0 /HPF (0-FEW) Urine Mucus Mod /LPF White Blood Count 11.2 x10^3/uL (4.0-11.0) Red Blood Count 3.63 x10^6/uL (3.50-5.40) Hemoglobin 11.1 g/dL (12.0-15.5) Hematocrit 33.2 % (36.0-47.0) Mean Corpuscular Volume 91 fL (79-100) Mean Corpuscular Hemoglobin 31 pg (25-35) Mean Corpuscular Hemoglobin Concent 33 g/dL (31-37) Red Cell Distribution Width 13.8 % (11.5-14.5) Platelet Count 469 x10^3/uL (140-400) Neutrophils (%) (Auto) 45 % (31-73) Lymphocytes (%) (Auto) 44 % (24-48) Monocytes (%) (Auto) 7 % (0-9) Eosinophils (%) (Auto) 3 % (0-3) Basophils (%) (Auto) 2 % (0-3) Neutrophils # (Auto) 5.0 x10^3/uL (1.8-7.7) Lymphocytes # (Auto) 4.9 x10^3/uL (1.0-4.8) Monocytes # (Auto) 0.8 x10^3/uL (0.0-1.1) Eosinophils # (Auto) 0.3 x10^3/uL (0.0-0.7) Basophils # (Auto) 0.2 x10^3/uL (0.0-0.2) Sodium Level 141 mmol/L (136-145) Potassium Level 3.9 mmol/L (3.5-5.1) Chloride Level 107 mmol/L (98-107) Carbon Dioxide Level 21 mmol/L (21-32) Anion Gap 13 (6-14) Blood Urea Nitrogen 22 mg/dL (7-20) Creatinine 0.8 mg/dL (0.6-1.0) Estimated GFR (Cockcroft-Gault) 77.2 BUN/Creatinine Ratio 28 (6-20) Glucose Level 102 mg/dL (70-99) Calcium Level 8.8 mg/dL (8.5-10.1) Total Bilirubin 0.2 mg/dL (0.2-1.0) Aspartate Amino Transf (AST/SGOT) 6 U/L (15-37) Alanine Aminotransferase (ALT/SGPT) 15 U/L (14-59) Alkaline Phosphatase 67 U/L (46-116) Troponin I High Sensitivity < 4 ng/L (4-50) Total Protein 6.9 g/dL (6.4-8.2) Albumin 3.8 g/dL (3.4-5.0) Albumin/Globulin Ratio 1.2 (1.0-1.7) Lipase 58 U/L (73-393) Serum Test, Qualitative Negative (NEG) Allergies: Coded Allergies: Iodine and Iodide Containing Produc (Verified Allergy, Severe, throat swelling to IV contrast, 01/31/22) sulfamethoxazole (Verified Allergy, Severe, SWELLING,TROUBLE BREATHING, 01/31/22) trimethoprim (Verified Allergy, Severe, SWELLING,TROUBLE BREATHING, 01/31/22) Cephalexin Monohydrate (Verified Allergy, Intermediate, SWELLING,TROUBLE BREATHING, 01/31/22) NSAIDS (Non-Steroidal Anti-Inflamma (Verified Allergy, Intermediate, 01/31/22) TORADOL [place] Penicillins (Verified Allergy, Intermediate, SWELLING,TROUBLE BREATHING, 01/31/22) iodine (Verified Allergy, Intermediate, 03/18/20) lidocaine (Verified Allergy, Intermediate, 03/18/20) nitrofurantoin (Verified Allergy, Intermediate, rash and chest tightness, 01/07/22) prochlorperazine edisylate (Verified Allergy, Intermediate, 03/18/20) prochlorperazine maleate (Verified Allergy, Intermediate, 03/18/20) tramadol (Verified Allergy, Intermediate, RASH/HIVES, 05/23/21) Medications: Current Medications Medications (Trade) Dose Ordered Sig/Tex Route PRN Reason Start Time Stop Time Status Last Admin Dose Admin Pantoprazole Sodium (PROTONIX VIAL for IV PUSH) 40 mg 1X ONCE IVP 02/19/22 01:30 02/19/22 01:31 DC 02/19/22 02:33 Sucralfate (Carafate) 1 gm 1X ONCE PO 02/19/22 01:30 02/19/22 01:31 DC 02/19/22 02:33 Ondansetron HCl (Zofran) 4 mg 1X ONCE IVP 02/19/22 01:30 02/19/22 01:31 DC 02/19/22 02:33 Sodium Chloride 1,000 ml @ 1,000 mls/hr 1X ONCE IV 02/19/22 01:30 02/19/22 02:29 DC 02/19/22 02:33 Morphine Sulfate (Morphine Sulfate) 4 mg 1X ONCE IVP 02/19/22 03:30 02/19/22 03:31 DC 02/19/22 03:15 Morphine Sulfate (Morphine Sulfate) 4 mg 1X ONCE IVP 02/19/22 05:00 02/19/22 05:01 DC 02/19/22 04:51 Morphine Sulfate (Morphine Sulfate) 2 mg PRN Q2HR PRN IVP SEVERE PAIN 7-10 02/19/22 06:15 02/20/22 06:14 02/19/22 08:13 Imaging: Imaging: CT A/P FINDINGS: Lack of intravenous contrast limits evaluation of solid organs, vasculature, and lymph nodes. Lower chest: Lung bases are grossly clear. Abdomen and Pelvis: No focal liver lesion. Accounting for postcholecystectomy change, no biliary ductal dilatation. Pancreas, spleen, adrenal glands are unremarkable. A punctate nonobstructing left interpolar renal calculus. No focal renal lesion. No hydronephrosis. No hydroureter. Bladder is unremarkable. No abdominal or pelvic lymphadenopathy. A few mildly prominent pericecal lymph nodes are seen. IVC filter is seen, legs of the IVC filter extend beyond the margin of the IVC. Moderate colonic stool content is seen. No small or large bowel dilatation. No bowel obstruction. Changes of gastric bypass are seen. SMA and QUINCY maintain normal relationship. Aorta is normal in caliber. No abdominal or pelvic ascites. No abdominal or pelvic lymphadenopathy. No aggressive osseous lesion is seen. IMPRESSION: 1. Punctate nonobstructing left interpolar renal calculus. 2. Moderate colonic stool content. No bowel obstruction. 3. A few mildly prominent right lower quadrant and pericecal lymph nodes are seen, possibly reactive. PE: GEN: NAD - was sleeping HEENT: Atraumatic, PERRL LUNGS: CTAB HEART: RRR ABD: quiet BS, soft, non-distended, more tender when palpated periumbilical region with my hands - less with stethoscope EXTREMITY: No edema SKIN: No rashes, no jaundice NEURO/PSYCH: A & O 3 A/P: A/P: Periumbilical pain, vomiting, decreased appetite, "dark stool" Chronic anemia H/o s/p Billroth 2 - on Carafate, PPI, H2 daria CRC screen - none? S/p cholecystectomy -- Chronic pain issues. Has clear liquid diet ordered, okay to advance as tolerated. Resume PPI +/- Carafate. Probably doesn't need H2 daria in addition. Observe for dark stool. YOLY FINE Feb 19, 2022 09:58
--- NOTE | 2022-02-19 10:00 | NUR ---
SW following. Discussed with RN, pt from home with , room air, clear liquid diet. GI following. RN advised no SW needs at this time. SW will continue to follow.
[2022-02-19 11:00] VITALS: BP 136/55
[2022-02-19] MEDS ORDERED: POLYETHYLENE GLYCOL 3350 17 GM PACKET. PO PRN (11:30)
[2022-02-19] MEDS ORDERED: DICYCLOMINE HCL 10 MG CAPSULE PO PRN (11:30)
[2022-02-19] MEDS: PANTOPRAZOLE 40 MG TABLET.DR. PO SCH ×3 (12:58→18:29)
[2022-02-19] MEDS ORDERED: ALBUTEROL SULFATE 2.5 MG/3 ML NEBU. NEB PRN (13:15)
[2022-02-19] MEDS ORDERED: ONDANSETRON ODT 4 MG TAB.RAPDIS. PO PRN (13:15)
[2022-02-19] MEDS ORDERED: SENNOSIDES/DOCUSATE 8.6/50MG TABLET. PO PRN (13:15)
[2022-02-19] MEDS: risperiDONE 1 MG TABLET. PO SCH ×2 (15:20→21:49)
[2022-02-19] MEDS: SUCRALFATE 1 GM TABLET. PO SCH ×2 (15:20→21:49)
[2022-02-19] MEDS: FLUoxetine HCL 20 MG CAPSULE PO SCH (15:21)
[2022-02-19] MEDS: BETHANECHOL CHLORIDE 10 MG TABLET. PO SCH (15:21)
[2022-02-19] MEDS: LURASIDONE 40 MG TABLET. PO SCH (15:23)
[2022-02-19] MEDS: levETIRAcetam 500 MG TABLET PO SCH ×2 (15:24→21:49)
[2022-02-19] MEDS: LUBIPROSTONE 24 MCG CAPSULE PO SCH (18:29)
[2022-02-19 19:00] VITALS: BP 93/49
[2022-02-19 23:23] VITALS: BP 107/56
[2022-02-20 01:12] LABS: HEMOGLOBIN A1C 5.4 % (4.8-5.6)
[2022-02-20] MEDS: MORPHINE SULFATE 2 MG/ML INJ. IVP PRN ×5 (02:48→19:51)
[2022-02-20 03:32] VITALS: BP 106/43
[2022-02-20 07:00] VITALS: BP 116/57
[2022-02-20] MEDS: PANTOPRAZOLE 40 MG TABLET.DR. PO SCH ×3 (07:30→15:45)
[2022-02-20 08:04] LABS: BASO % 0 % (0-3); EOS # 0.3 x10^3/uL (0.0-0.7); EOS % 5 % (0-3); HEMATOCRIT 30.1 % (36.0-47.0); HEMOGLOBIN 10.1 g/dL (12.0-15.5); LYMPH # 2.6 x10^3/uL (1.0-4.8); LYMPH % 46 % (24-48); MEAN CORPUSCULAR HEMOGLOBIN 31 pg (25-35); MEAN CORPUSCULAR HGB CONC 34 g/dL (31-37); MEAN CORPUSCULAR VOLUME 93 fL (79-100); MONO # 0.4 x10^3/uL (0.0-1.1); MONO % 8 % (0-9); NEUT # 2.3 x10^3/uL (1.8-7.7); NEUT % 41 % (31-73); PLATELET COUNT 384 x10^3/uL (140-400); RED BLOOD COUNT 3.25 x10^6/uL (3.50-5.40); RED CELL DISTRIBUTION WIDTH 13.6 % (11.5-14.5); WHITE BLOOD COUNT 5.6 x10^3/uL (4.0-11.0)
[2022-02-20] MEDS: FLUoxetine HCL 20 MG CAPSULE PO SCH (08:12)
[2022-02-20] MEDS: LUBIPROSTONE 24 MCG CAPSULE PO SCH ×2 (08:12→15:45)
[2022-02-20] MEDS: LURASIDONE 40 MG TABLET. PO SCH (08:12)
[2022-02-20] MEDS: SUCRALFATE 1 GM TABLET. PO SCH ×4 (08:12→20:16)
[2022-02-20] MEDS: levETIRAcetam 500 MG TABLET PO SCH (08:12)
[2022-02-20] MEDS: risperiDONE 1 MG TABLET. PO SCH (08:12)
[2022-02-20] MEDS: BETHANECHOL CHLORIDE 10 MG TABLET. PO SCH ×2 (08:13→11:12)
[2022-02-20 08:29] LABS: ALBUMIN 3.3 g/dL (3.4-5.0); ALBUMIN/GLOBULIN RATIO 1.1 (1.0-1.7); CALCIUM 8.7 mg/dL (8.5-10.1); CREATININE 0.7 mg/dL (0.6-1.0); GFR 90.1; POTASSIUM 3.6 mmol/L (3.5-5.1); TOTAL BILIRUBIN 0.3 mg/dL (0.2-1.0); TOTAL PROTEIN 6.2 g/dL (6.4-8.2)
--- NOTE | 2022-02-20 09:56 | PDOC ---
Date of Service: DATE: 02/20/22 TIME: 09:53 Subjective: Subjective: Feels the same - mid abd pain is bad. Taking some clears. Had a dark (not black) stool. Objective: Objective: D/w nurse - pt still wanting pain meds - now ordered every 4 hours instead of every 2. Vital Signs: Vital Signs Date Time Temp Pulse Resp B/P (MAP) Pulse Ox O2 Delivery O2 Flow Rate FiO2 02/20/22 08:00 Room Air 02/20/22 07:00 97.6 63 18 116/57 (76) 93 97.6 Labs: Laboratory Tests Test 02/20/22 07:20 White Blood Count 5.6 x10^3/uL Red Blood Count 3.25 x10^6/uL Hemoglobin 10.1 g/dL Hematocrit 30.1 % Mean Corpuscular Volume 93 fL Mean Corpuscular Hemoglobin 31 pg Mean Corpuscular Hemoglobin Concent 34 g/dL Red Cell Distribution Width 13.6 % Platelet Count 384 x10^3/uL Neutrophils (%) (Auto) 41 % Lymphocytes (%) (Auto) 46 % Monocytes (%) (Auto) 8 % Eosinophils (%) (Auto) 5 % Basophils (%) (Auto) 0 % Neutrophils # (Auto) 2.3 x10^3/uL Lymphocytes # (Auto) 2.6 x10^3/uL Monocytes # (Auto) 0.4 x10^3/uL Eosinophils # (Auto) 0.3 x10^3/uL Basophils # (Auto) 0.0 x10^3/uL Sodium Level 140 mmol/L Potassium Level 3.6 mmol/L Chloride Level 105 mmol/L Carbon Dioxide Level 24 mmol/L Anion Gap 11 Blood Urea Nitrogen 10 mg/dL Creatinine 0.7 mg/dL Estimated GFR (Cockcroft-Gault) 90.1 BUN/Creatinine Ratio 14 Glucose Level 89 mg/dL Calcium Level 8.7 mg/dL Total Bilirubin 0.3 mg/dL Aspartate Amino Transf (AST/SGOT) 33 U/L Alanine Aminotransferase (ALT/SGPT) 70 U/L Alkaline Phosphatase 139 U/L Total Protein 6.2 g/dL Albumin 3.3 g/dL Albumin/Globulin Ratio 1.1 CULTURE URINE Final LESS THAN 10,000 CFU/ML: GROWTH NOT INDICATIVE OF INFECTION PE: GEN: NAD LUNGS: CTAB HEART: RRR ABD: winces to light palpation, soft, non-distended NEURO/PSYCH: A & O 3 A/P: Periumbilical pain Chronic anemia H/o s/p Billroth 2 -- Try advancing diet. Continue PPI (has double order - will stop one) and Carafate. Consider stopping bethanecol. Justicifation of Admission Dx: Justifications for Admission: Justification of Admission Dx: N/A YOLY FINE Feb 20, 2022 09:56
[2022-02-20 11:00] VITALS: BP 120/66
--- NOTE | 2022-02-20 11:28 | PDOC ---
[employer] PROGRESS NOTE Date of Service DOS: DATE: 02/20/22 TIME: 11:26 Chief Complaint Chief Complaint Nausea without vomiting - IV antiemetics, she is asking for PO already Early satiety -possible gastroparesis. Checked A1c TSH is WNL Abdominal pain -intractable significant solid stool content PUD - s/p partial distal gastrectomy with bilroth 2 reconstruction, removal of mesh. Had prior perforated gastric ulcer status post repair of perforated ulcer w/ gopal patch H/o drug seeking behavior documented, will minimize IV pain medications, change to hydrocodone Leukocytosis - mild Diffuse peritonitis - improved from prior Normocytic Anemia - will check B12, iron Multiple abx allergies - PCN, Keflex, bactrim Bilateral nephrolithiasis, nonobstructive Schizophrenia/bipolar disorder - restart meds Anxiety/depression ?History of Lupus History of CHF - diastolic, not in HF History of COPD - prn albuterol Prior Smoker FEN - NPO, ADAT PPX - lovenox CODE - FULL Dispo - inpatient History of Present Illness History of Present Illness Ms Goncalves is a 46yo F w/ PMHx COPD, DVT s/p IVC filter, hypercholesterolemia, hypertension, kidney stones, myocardial infarction, peptic ulcer disease (perforated s/p gopal patch), seizures, anxiety/depression, BP disorder, questionable history of lupus and obesity who comes to the ED on 02/19/2022 c/o intractable abdominal pain. She notes early satiety and decreased appetite. She is adentulous and has a soft diet at baseline. She does not note any change in her stools though she thinks they are darker than usual. She relates she still been taking her Carafate 4 times a day and protonix daily, notes she has been taking nexium as well. No recent travel or sick contacts. She notes she has been working a lot lately and has not had time to have any GI general surgery follow-up. Patient denies any chest pain, no trouble breathing, no cough, no fever. This morning complaining of pain. Notes she has had multiple bowel movements all formed no watery. Previously on Latuda and Risperdal and Keppra. She also wants something for pain. EKG sinus rhythm rate 67 bpm normal axis intervals QTc 430. Labs revealed WBC 11.1, Hb 11.1, platelets 469, urinalysis bland small leukocyte esterase negative test, NA 141, K3.9, BUN 22, CR 0.8, glucose 102, calcium 8.8, bilirubin 0.2, AST 6, ALT 15, alkaline phosphatase 67, albumin 3.8, lipase 58, high-sensitivity troponin is less than 4. CT abdomen pelvis with bilateral nonobstructive nephrolithiasis moderate colonic stool content possible pericecal lymphadenopathy. Patient has been evaluated multiple times for the same problem, but not seen since the end of 2020, though she has had multiple ED visits for various pain complaints. Prescription monitoring report does not show any controlled substances dispensed in [facility] since September 2021. Patient was admitted here on October 23, 2020 due to intractable abdominal pain. On 2019, patient had partial distal gastrectomy with bilroth 2 reconstruction, removal of mesh. Patient was discharged home on November 08, 2020. Patient came back to ER the next day due to abdominal pain with nausea vomiting. CT scan of her abdomen and pelvic did not show any acute problem on 11/09/2020 and she has had 25 CT scans of abdomen and pelvis since 2017. 02/20: ALT and alk phos elevated today. Notes her pain is the same. Overnight would ask for morphine but fell asleep prior to administration of increased interval between IV morphine dosing. She does not feel that she is progressed and has no appetite did have a dark bowel movement no blood says it was "gummy". Vitals/I&O Vitals/I&O: Vital Signs Date Time Temp Pulse Resp B/P (MAP) Pulse Ox O2 Delivery O2 Flow Rate FiO2 02/20/22 11:13 Room Air 02/20/22 07:00 97.6 63 18 116/57 (76) 93 97.6 I & O 02/19/22 02/19/22 02/20/22 15:00 23:00 07:00 Intake Total 240 ml 120 ml 240 ml Balance 240 ml 120 ml 240 ml Physical Exam General: Alert, Oriented X3, Cooperative, mild distress Lungs: Clear Abdomen: Other (epigastric abdominal pain) Extremities: No clubbing, No cyanosis, No edema, Normal pulses, No tenderness/swelling Skin: No rashes, No breakdown, No significant lesion Labs Labs: Laboratory Tests Test 02/20/22 07:20 White Blood Count 5.6 x10^3/uL (4.0-11.0) Red Blood Count 3.25 x10^6/uL (3.50-5.40) Hemoglobin 10.1 g/dL (12.0-15.5) Hematocrit 30.1 % (36.0-47.0) Mean Corpuscular Volume 93 fL (79-100) Mean Corpuscular Hemoglobin 31 pg (25-35) Mean Corpuscular Hemoglobin Concent 34 g/dL (31-37) Red Cell Distribution Width 13.6 % (11.5-14.5) Platelet Count 384 x10^3/uL (140-400) Neutrophils (%) (Auto) 41 % (31-73) Lymphocytes (%) (Auto) 46 % (24-48) Monocytes (%) (Auto) 8 % (0-9) Eosinophils (%) (Auto) 5 % (0-3) Basophils (%) (Auto) 0 % (0-3) Neutrophils # (Auto) 2.3 x10^3/uL (1.8-7.7) Lymphocytes # (Auto) 2.6 x10^3/uL (1.0-4.8) Monocytes # (Auto) 0.4 x10^3/uL (0.0-1.1) Eosinophils # (Auto) 0.3 x10^3/uL (0.0-0.7) Basophils # (Auto) 0.0 x10^3/uL (0.0-0.2) Sodium Level 140 mmol/L (136-145) Potassium Level 3.6 mmol/L (3.5-5.1) Chloride Level 105 mmol/L (98-107) Carbon Dioxide Level 24 mmol/L (21-32) Anion Gap 11 (6-14) Blood Urea Nitrogen 10 mg/dL (7-20) Creatinine 0.7 mg/dL (0.6-1.0) Estimated GFR (Cockcroft-Gault) 90.1 BUN/Creatinine Ratio 14 (6-20) Glucose Level 89 mg/dL (70-99) Calcium Level 8.7 mg/dL (8.5-10.1) Total Bilirubin 0.3 mg/dL (0.2-1.0) Aspartate Amino Transf (AST/SGOT) 33 U/L (15-37) Alanine Aminotransferase (ALT/SGPT) 70 U/L (14-59) Alkaline Phosphatase 139 U/L (46-116) Total Protein 6.2 g/dL (6.4-8.2) Albumin 3.3 g/dL (3.4-5.0) Albumin/Globulin Ratio 1.1 (1.0-1.7) Assessment and Plan Assessmemt and Plan Problems Medical Problems: (1) Acute epigastric pain Status: Acute Comment Review of Relevant I have reviewed the following items sasha (where applicable) has been applied. Medications: Current Medications Medications (Trade) Dose Ordered Sig/Tex Route PRN Reason Start Time Stop Time Status Last Admin Dose Admin Pantoprazole Sodium (Protonix) 40 mg BIDAC PO 02/19/22 12:00 02/20/22 08:12 Pantoprazole Sodium (Protonix) 40 mg BIDAC PO 02/19/22 16:30 02/20/22 09:57 DC 02/19/22 18:29 Sucralfate (Carafate) 1 gm QIDACHS PO 02/19/22 16:30 02/20/22 11:12 Levetiracetam (Keppra) 500 mg BID PO 02/19/22 13:30 02/20/22 08:12 Lurasidone HCl (Latuda) 40 mg DAILYWBKFT PO 02/19/22 13:30 02/20/22 08:12 Fluoxetine HCl (PROzac) 40 mg DAILY PO 02/19/22 13:30 02/20/22 08:12 Risperidone (RisperDAL) 5 mg BID PO 02/19/22 13:30 02/20/22 08:12 Bethanechol Chloride (Urecholine) 10 mg TIDAC PO 02/19/22 16:30 02/20/22 11:12 Lubiprostone (Amitiza) 24 mcg BIDWMEALS PO 02/19/22 17:00 02/20/22 08:12 Morphine Sulfate (Morphine Sulfate) 2 mg PRN Q4HRS PRN IVP SEVERE PAIN 7-10 02/20/22 06:30 02/20/22 11:13 Justifications for Admission Other Justification N/V and suicidal ideation JONEL GOVEA MD Feb 20, 2022 11:28
[2022-02-20] MEDS ORDERED: miSOPROStol 200 MCG TABLET. PO SCH (12:00)
[2022-02-20 15:00] VITALS: BP 162/63
[2022-02-20 19:00] VITALS: BP 144/76
--- NOTE | 2022-02-20 20:45 | NUR ---
Discharge Note: TRACIE GAONA [facility] [address] Patient left AMA. Reporting to staff, "...I just can't get comfortable and want to go home". Dr. Morejon and nursing area supervisor notified of patient leaving AMA. Patient's IV access removed and all personal belongings with patient at time of discharge from unit. Patient taken via wheelchair to exit and picked up in POV by spouse.
== END 2022-02-20 20:40 | disposition left against medical advice (07) | DRG 391 ==
LOC: ER 21:47 → 4 NORTH 02-19 03:55
PROVIDERS: ADMIT Internal Medicine; ATTEND Internal Medicine
DX: K31.84 Gastroparesis (principal); K65.0 Generalized (acute) peritonitis; I50.32 Chronic diastolic (congestive) heart failure; D64.9 Anemia, unspecified; D35.02 Benign neoplasm of left adrenal gland; E78.00 Pure hypercholesterolemia, unspecified; F17.210 Nicotine dependence, cigarettes, uncomplicated; F20.9 Schizophrenia, unspecified; F31.9 Bipolar disorder, unspecified; F41.9 Anxiety disorder, unspecified; G89.29 Other chronic pain; I11.0 Hypertensive heart disease with heart failure; I25.2 Old myocardial infarction; J44.9 Chronic obstructive pulmonary disease, unspecified; K43.9 Ventral hernia without obstruction or gangrene; N20.0 Calculus of kidney; Z82.0 Family history of epilepsy and other diseases of the nervous system; Z82.49 Family history of ischemic heart disease and other diseases of the circulatory system; Z86.711 Personal history of pulmonary embolism; Z87.11 Personal history of peptic ulcer disease; Z87.442 Personal history of urinary calculi; Z90.3 Acquired absence of stomach [part of]; Z90.49 Acquired absence of other specified parts of digestive tract; Z90.710 Acquired absence of both cervix and uterus; Z95.828 Presence of other vascular implants and grafts; K21.9 Gastro-esophageal reflux disease without esophagitis; Z86.718 Personal history of other venous thrombosis and embolism; Z79.01 Long term (current) use of anticoagulants; Z87.440 Personal history of urinary (tract) infections
CPT/HCPCS: 36415; 74176; 80053; 81001; 83036; 83690; 84443; 84484; 84703; 85025; 87086; 93005; 96361; 96374; 96375; 96376; C9113; J2270; J2405; J7030; 99285-25; G0378

== ENCOUNTER 2022-03-06 09:47 | Emergency (ER) | payer OTHER ==
[~2022-03-06] VITALS: Ht 172.7 cm; Wt 95.6 kg
[~2022-03-06 09:47] MED LIST changes: +SENN1TAB99 PO; +ZOLP5TAB PO
[2022-03-06 10:03] VITALS: BP 112/73
--- NOTE | 2022-03-06 10:43 | PHYS DOC ---
Past Medical History Past Medical History: CHF, COPD, DVT, High Cholesterol, Hypertension, Kidney Stone, NH, P.U.D., Seizure, UTI, Other Additional Past Medical Histor: Lupus,DRUG SEEKING BEHAVIOR,INTRACTABLE ABD PAIN,PYELONEPHRITIS Past Surgical History: Appendectomy, Cholecystectomy, , Hysterectomy, Tonsillectomy Additional Past Surgical Histo: Stomach perferations repair X 2 Smoking Status: Current Every Day Smoker Alcohol Use: None Drug Use: None General Adult EDM: Chief Complaint: COUGH HPI: HPI: Patient is a 46-year-old female that presents today with cough. Patient states that she was seen at [facility] on Friday night, she states that she was diagnosed with pneumonia, and given a prescription for doxycycline and albuterol inhaler. Patient states that over the last 48 hours her cough has continued, she states that she took some Tessalon Perles for which she had at h ome from her previous emergency room visit she states that has not been helping with her cough she presents today for further management of her cough. Patient states that she does smoke and that she has a history of COPD. Patient is also stating that she has pain around her rib cage area from her coughing, she states that she cannot take NSAIDs due to an allergy. Review of Systems: Review of Systems: Constitutional: Denies fever or chills. [] Eyes: Denies change in visual acuity. [] HENT: Denies nasal congestion or sore throat. [] Respiratory: cough Cardiovascular: chest wall pain GI: Denies abdominal pain, nausea, vomiting, bloody stools or diarrhea. [] : Denies dysuria. [] Musculoskeletal: Denies back pain or joint pain. [] Integument: Denies rash. [] Neurologic: Denies headache, focal weakness or sensory changes. [] Endocrine: Denies polyuria or polydipsia. [] Lymphatic: Denies swollen glands. [] Psychiatric: Denies depression or anxiety. [] Heart Score: C/O Chest Pain: No Risk Factors: Risk Factors: DM, Current or recent (<one month) smoker, HTN, HLP, family history of CAD, obesity. Risk Scores: Score 0 - 3: 2.5% MACE over next 6 weeks - Discharge Home Score 4 - 6: 20.3% MACE over next 6 weeks - Admit for Clinical Observation Score 7 - 10: 72.7% MACE over next 6 weeks - Early Invasive Strategies Current Medications: Current Medications Medications (Trade) Dose Ordered Sig/Tex Start Time Stop Time Status Last Admin Dose Admin Albuterol/ Ipratropium (Duoneb) 3 ml 1X ONCE 03/06/22 11:00 03/06/22 11:01 Prednisone (Prednisone) 50 mg 1X ONCE 03/06/22 11:00 03/06/22 11:01 Allergies: Allergies: Allergies Coded Allergies Type Severity Reaction Last Updated Verified Iodine and Iodide Containing Produc Allergy Severe throat swelling to IV contrast 01/31/22 Yes sulfamethoxazole Allergy Severe SWELLING,TROUBLE BREATHING 01/31/22 Yes trimethoprim Allergy Severe SWELLING,TROUBLE BREATHING 01/31/22 Yes Cephalexin Monohydrate Allergy Intermediate SWELLING,TROUBLE BREATHING 01/31/22 Yes NSAIDS (Non-Steroidal Anti-Inflamma Allergy Intermediate 01/31/22 Yes Penicillins Allergy Intermediate SWELLING,TROUBLE BREATHING 01/31/22 Yes iodine Allergy Intermediate 03/18/20 Yes lidocaine Allergy Intermediate 03/18/20 Yes nitrofurantoin Allergy Intermediate rash and chest tightness 01/07/22 Yes oxybutynin Allergy Intermediate 03/06/22 Yes prochlorperazine edisylate Allergy Intermediate 03/18/20 Yes prochlorperazine maleate Allergy Intermediate 03/18/20 Yes tramadol Allergy Intermediate RASH/HIVES 05/23/21 Yes Physical Exam: PE: Constitutional: Well developed, well nourished, no acute distress, non-toxic appearance. [] HENT: Normocephalic, atraumatic, bilateral external ears normal, oropharynx moist, no oral exudates, nose normal. [] Eyes: PERRLA, EOMI, conjunctiva normal, no discharge. [] Neck: Normal range of motion, no tenderness, supple, no stridor. [] Cardiovascular:Heart rate regular rhythm, no murmur, patient's rib cage is tender to touch with palpation, when patient takes a deep breath the pain in her chest is reproducible Lungs & Thorax: Bilateral breath sounds wheezes noted in the upper airways, bases of the lungs are diminished, patient does have a dry cough noted Abdomen: Bowel sounds normal, soft, no tenderness, no masses, no pulsatile masses. [] Skin: Warm, dry, no erythema, no rash. [] Back: No tenderness, no CVA tenderness. [] Extremities: No tenderness, no cyanosis, no clubbing, ROM intact, no edema. [] Neurologic: Alert and oriented X 3, normal motor function, normal sensory function, no focal deficits noted. [] Psychologic: Affect normal, judgement normal, mood normal. [] Current Patient Data: Vital Signs: Vital Signs Date Time Temp Pulse Resp B/P (MAP) Pulse Ox O2 Delivery O2 Flow Rate FiO2 03/06/22 10:03 98.6 92 20 112/73 (86) 99 Room Air 98.6 EKG: EKG: [] Radiology/Procedures: Radiology/Procedures: [] Course & Med Decision Making: Course & Med Decision Making Pertinent Labs and Imaging studies reviewed. (See chart for details) 1035 respiratory therapist at the bedside, patient is refusing the DuoNeb treatm ent, "I do not want that shit it makes me jittery" patient states she is waiting for the nurse to come back so that she can leave. 1043 RN at the bedside patient is refusing all treatment and left the department without any further treatment states that "I am going to get a adapted physical education specialist, people are accusing me of things that I do not do, and no one is listening to me" Dragon Disclaimer: Re Disclaimer: This electronic medical record was generated, in whole or in part, using a voice recognition dictation system. Departure Departure Impression: Primary Impression: Cough Disposition: LEFT AWOL/ELOPED Condition: STABLE Referrals: NO PCP (PCP) KRYSTYNA DELA CRUZ APRN Mar 06, 2022 10:43
[2022-03-06] MEDS ORDERED: IPRATRPIUM/ALBUTEROL 0.5/2.5MG 3 ML NEBU. NEB ONE (11:00)
[2022-03-06] MEDS ORDERED: predniSONE 10 MG TABLET PO ONE (11:00)
== END 2022-03-06 10:44 | disposition left against medical advice (07) ==
LOC: ER 09:47 → EEVIPCON 09:47 → ER 10:44
DX: R05.9 Cough, unspecified (principal); R07.89 Other chest pain; Z76.5 Malingerer [conscious simulation]; J44.9 Chronic obstructive pulmonary disease, unspecified; E78.00 Pure hypercholesterolemia, unspecified; I11.0 Hypertensive heart disease with heart failure; I50.9 Heart failure, unspecified; Z86.718 Personal history of other venous thrombosis and embolism; I25.2 Old myocardial infarction; Z87.442 Personal history of urinary calculi; F17.200 Nicotine dependence, unspecified, uncomplicated; Z91.041 Radiographic dye allergy status; Z88.2 Allergy status to sulfonamides; Z88.1 Allergy status to other antibiotic agents; Z88.0 Allergy status to penicillin; Z88.4 Allergy status to anesthetic agent; Z88.8 Allergy status to other drugs, medicaments and biological substances; Z88.6 Allergy status to analgesic agent
CPT/HCPCS: 99281